=== PATIENT | male | born 1950 | race African-American/Black ===

== ENCOUNTER 2017-12-03 06:42 | Observation (INO) | payer OTHER ==
[2017-12-03 07:14] LABS: Absolute Lymphocytes (CBC) 3.4 K/uL (0.7-4.9); Absolute Monocytes 0.6 K/uL (0.1-1.3); Absolute Neutrophil 4.8 K/uL (1.8-8.0); Basophils % 0.3 % (0-1.3); Hematocrit 43.5 % (39.6-49.0); Lymphocytes % 36.8 % (15.3-44.8); MCH 31.4 pg (27.0-35.0); MCV 94.8 fL (80-100); MPV 9.1 fL (7.6-11.3); RBC Red Blood Cell Count 4.59 M/uL (4.33-5.43)
[2017-12-03 07:18] LABS: Protime INR 1.12
[2017-12-03 07:20] LABS: Potassium 5.3 mEq/L (3.6-5.0)
[2017-12-03 07:26] LABS: Albumin 4.3 g/dL (3.2-5.5); Bilirubin Direct 0.3 mg/dL (0-0.2); Bilirubin Total 1.1 mg/dL (0.3-1.2); Magnesium 2.2 mg/dL (1.8-2.5); Protein, Total 8.7 g/dL (6.0-8.3)
--- NOTE | 2017-12-03 08:14 | RAD REPORT ---
EXAM DESCRIPTION: CT - Head Brain Wo Cont - 12/03/2017 7:33 am CLINICAL HISTORY: Unresponsive COMPARISON: None. TECHNIQUE: Axial 5 mm thick images of the head were obtained without IV contrast. All CT scans are performed using dose optimization technique as appropriate and may include automated exposure control or mA/KV adjustment according to patient size. FINDINGS: No intracranial hemorrhage, mass, edema or shift of mid-line structures. No acute cortical based infarction. No cortical edema or sulcal effacement. There is a large area of encephalomalacia involving most of the right frontal lobe extending into a small portion of the temporal lobe. The ins ular cortex and external capsule show old infarction change. Lateral ventricle has enlarged in propor tion to the right side volume loss. No abnormal extra-axial fluid collections. Ventricles are in prop ortion to overall volume loss. Patient does have a mild underlying atrophy and scattered chronic isch emic change. Physiologic and vascular calcifications are present. Mastoid air cells are clear. Patchy ethmoid air cell mucosal thickening without sinus air-fluid level s. No acute bony findings. IMPRESSION: No hemorrhage, mass or acute intracranial finding. 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
[2017-12-03] MEDS ORDERED: ALBUTEROL 2.5 MG/3 ML NEB SOL ONE (09:04)
[2017-12-03] MEDS ORDERED: INSULIN -REGULAR HUMAN 50 UNIT/0.5 ML ML ONE (09:04)
[2017-12-03 09:05] LABS: Barbiturates NEGATIVE; Benzodiazepines NEGATIVE; Cocaine NEGATIVE; METHAMPHETAM NEGATIVE; Opiates NEGATIVE; Phencyclidine NEGATIVE; THC Cannibis NEGATIVE
[2017-12-03] MEDS ORDERED: NA CHLORIDE 0.9% 1,000 ML ONE (09:05)
[2017-12-03] MEDS ORDERED: D50W 25 GM/50 ML SYRINGE IV ONE (09:05)
[2017-12-03] MEDS ORDERED: CEFTRIAXONE/SWI 1gm 1 GM/10 ML SYR ONE (09:05)
--- NOTE | 2017-12-03 09:08 | RAD REPORT ---
EXAM DESCRIPTION: RAD - Chest Single View - 12/03/2017 7:26 am CLINICAL HISTORY: Altered mental status, shortness of breath COMPARISON: None. TECHNIQUE: AP portable chest image was obtained 0716 hours . FINDINGS: Lung volumes are low. Patient had difficulty following breathing instructions for the exam ination. Trachea is midline. Retrocardiac left base assessment is limited. Elsewhere no clear infiltr ate, mass or significant failure finding. Heart, vasculature and lung markings are all accentuated by the shallow inspiration and portable technique. No measurable pleural effusion and no pneumothorax. No gross bony abnormality seen. No acute aortic f indings suspected. IMPRESSION: Limited examination confirming no acute cardiopulmonary finding. Mild failure, volume overload or interstitial infiltrate can be masked by the exam limitations.
--- NOTE | 2017-12-03 09:14 | ER ---
Nurse's Notes [facility] Name: Sumanth Rodriguez Age: 67 yrs Sex: Male : 1950 Arrival Date: 12/03/2017 Time: 06:47 Bed 3 Private MD: Diagnosis: Altered mental status, unspecified;Urinary tract infection, site not specified;Hyperkalemia Presentation: 12/03 06:40 Presenting complaint: EMS states: that pt was sitting in wheelchair at [facility] with eyes open but not following directions when they arrived there. Last known well time was 1800 last night. EMS states that [facility] staff got pt up this am and thought he was acting this was due to him being tired. Upon arrival pt remains nonverbal and not moving any ext. Transition of care: patient was not received from another setting of care. Onset of symptoms was December 03, 2017. Initial Sepsis Screen: Does the patient meet any 2 criteria? No. Patient's initial sepsis screen is negative. Does the patient have a suspected source of infection? No. Patient's initial sepsis screen is negative. Care prior to arrival: 100%NRB IV initiated. 20 GA, in the right antecubital area, Glucose check: 109. 06:40 Method Of Arrival: EMS: [facility] 06:40 Acuity: TORY 2 fc Historical: - Allergies: 07:07 No Known Allergies; fc - Home Meds: 07:07 baclofen 20 mg Oral tab 1 tab 4 times per day [Active]; Colace 100 mg oral cap 1 cap fc once daily [Active]; cyclobenzaprine 5 mg Oral tab 1 tab 3 times per day [Active]; Eliquis 5 mg oral tab 1 tab 2 times per day [Active]; Klor-Con M20 20 mEq Oral TbTQ 1 tab 2 times per day [Active]; Lantus 100 unit/mL Sub-Q soln 30 unit twice a day [Active]; Lasix 40 mg Oral tab 1 tab 2 times per day [Active]; Lipitor 40 mg Oral tab 1 tab once daily [Active]; lisinopril 10 mg Oral tab 1 tab once daily [Active]; metformin 500 mg Oral tab 1 tab 2 times per day [Active]; metoprolol tartrate 25 mg Oral tab 1 tab 2 times per day [Active]; Miralax 17 gram Oral pwpk 1 packet once daily [Active]; multivitamin oral tab daily [Active]; Neurontin 100 mg Oral cap 1 caps 3 times per day [Active]; - PMHx: 07:07 hemiplegia left side; CVA; constipation; Diabetes - NIDDM; CHF; muscle spasms; fc Hyperlipidemia; Hypertension; Atrial Fib; GERD; Dysphagia; - Immunization history:: Adult Immunizations unknown. - Social history:: Smoking status: unknown. Screenin:00 Abuse screen: Denies threats or abuse. Denies injuries from another. Tuberculosis sg screening: No symptoms or risk factors identified. Never had TB. Fall Risk None identified. 07:26 Nutritional screening: No deficits noted. sg Assessment: 06:48 General: Appears cachectic, Behavior is unresponsive. pt unresponsive to painful ak1 stimuli. pt with previous deficits to left side. pt able to fist left hand, pt unable to lift left arm, unable to move left leg from previous stroke. pt able to lift right arm and hold arm in place but does not follow commands. pt eyes open, pt moves head. pt awake pt not verbal. . Pain: Unable to use pain scale. Patient is unresponsive. Neuro: Level of Consciousness is awake, unresponsive, Oriented to none [employer] are weak on right strong on left hand. . Weakness in left arm(s) leg(s) Speech pt non verbal at this time.. Cardiovascular: No deficits noted. Respiratory: No deficits noted. GI: No signs and/or symptoms were reported involving the gastrointestinal system. : No signs and/or symptoms were reported regarding the genitourinary system. EENT: No signs and/or symptoms were reported regarding the EENT system. Derm: No signs and/or symptoms reported regarding the dermatologic system. Musculoskeletal: No signs and/or symptoms reported regarding the musculoskeletal system. 07:19 Reassessment: xray at bedside at this time. sg 07:22 Reassessment: Patient appears in no apparent distress at this time. assist Keshawn jacobs sg tech for xray of chest, pt tolerated procedure well. General: Appears in no apparent distress. well developed, well nourished, Behavior is unresponsive. pt sitting upright in bed with eyes open, unable to follow commands at this time. Neuro: Level of Consciousness is awake, unresponsive, Oriented to none Speech nonverbal at this time. Respiratory: Airway is patent Respiratory effort is even, unlabored, Respiratory pattern is regular, symmetrical. Derm: Skin is intact, Skin is dry, Skin is normal, Skin temperature is cool. 07:40 Reassessment: Patient appears in no apparent distress at this time. Patient and/or sg family updated on plan of care and expected duration. Pain level reassessed. pt family member at bedside at this time, Shoshana CARTER at bedside speaking with pt family member, no new orders received, awaiting CT scan results. 09:00 Reassessment: Patient appears in no apparent distress at this time. Patient and/or sg family updated on plan of care and expected duration. Pain level reassessed. Patient is alert, oriented x 3, equal unlabored respirations, skin warm/dry/pink. pt answering questions at this time, pt aa\T\ox2, Shoshana CARTER notified, awaiting evaluation by hospitalist at this time. 09:50 Reassessment: at bedside evaluating pt at this time. Reassessment: awaiting sg admission orders, awaiting a bed assignment will continue to monitor. Vital Signs: 06:40 BP 100 / 74; Pulse 73; Resp 16; Temp 98.2(A); Pulse Ox 96% on 3 lpm NC; Weight 136.08 fc kg (R); Height 6 ft. 1 in. (185.42 cm); Pain 0/10; 08:51 BP 119 / 91; Pulse 78; Resp 19; Pulse Ox 94% on 2 lpm NC; sv 12:00 BP 103 / 74; Pulse 73; Resp 18; Pulse Ox 96% on 2 lpm NC; sg 06:40 Body Mass Index 39.58 (136.08 kg, 185.42 cm) ED Course: 06:47 Patient arrived in ED. 06:47 Initial lab(s) drawn, by me. Maintain EMS IV. Dressing intact. Good blood return noted. ak1 Site clean \T\ dry. Gauge \T\ site: 20g right AC. 06:50 [facility]. cp 06:50 Marshall Avery MD is Attending Physician. cp 06:52 Triage completed. 06:53 Arm band placed on Patient placed in an exam room, on a stretcher. fc 07:00 Patient has correct armband on for positive identification. Bed in low position. Call sg light in reach. Side rails up X2. potline monitor on. Pulse ox on. NIBP on. Warm blanket given. Verbal reassurance given. Head of bed elevated. 07:17 Jere Lopez, RN is Primary Nurse. sg 07:17 Lab(s) recollected, by me, sent to lab. sg 07:24 X-ray completed. Portable x-ray completed in exam room. Patient tolerated procedure jb2 well. 07:25 XRAY Chest (1 view) In Process Unspecified. EDMS 07:[address] via stretcher. sg 07:32 CT completed. Patient tolerated procedure well. Patient moved back from CT. sj 07:33 CT Head Brain wo Cont In Process Unspecified. EDMS 07:45 First set of blood cultures drawn by me. Inserted saline lock: 24 gauge in right hand, sg using aseptic technique. Blood collected. 07:57 EKG done, by hydroelectric production technician. reviewed by Brian CARTER. tc 07:59 Karen Dunn MD is Attending Physician. cp 08:00 Second set of blood cultures drawn by me. sg 08:40 Rausch cath inserted, using sterile technique, 16 Fr., by me, balloon inflated, urine sg specimen collected. returned cloudy urine. Patient tolerated well. 09:13 Nadine Juarez MD is Hospitalizing Provider. cp 12:10 No provider procedures requiring assistance completed. Patient admitted, IV remains in sg place. intact, No redness/swelling at site. Administered Medications: 09:15 Drug: D50W 50 ml Route: IVP; Site: right hand; sg 09:15 Drug: Albuterol 2.5 mg Route: Inhalation; sg 09:20 Drug: Rocephin - (cefTRIAXone) 1 grams Route: IVPB; Infused Over: 30 mins; Site: right sg hand; 09:20 Drug: NS 0.9% 1000 ml Route: IV; Rate: 100 ml/hr; Site: right hand; sg 09:20 Drug: Insulin Regular Human 3 units {Co-Signature: ss (Yolanda Forrest RN).} Route: sg Sub-Q; Site: right upper arm; 09:20 Drug: Albuterol 2.5 mg Route: Inhalation; sg 09:20 Drug: Albuterol 2.5 mg Route: Inhalation; sg 09:20 Drug: NS 0.9% 250 ml Route: IV; Rate: bolus; Site: right hand; Point of Care Testing: Blood Glucose: 06:48 Blood Glucose: 100 mg/dL; 08:02 Blood Glucose: 101 mg/dL; bm6 Ranges: Output: 08:58 Urine: 800ml (Rausch); Total: 800ml. sg Outcome: 09:13 Decision to Hospitalize by Provider. cp 12:11 Admitted to Med/surg accompanied by tech, family with patient, via stretcher, room 412, sg with chart, Report called to WARREN Fraga 12:11 Condition: stable 12:11 Instructed on discharge instructions, the need for admit, safety practices, Demonstrated understanding of instructions. 12:14 Patient left the ED. sg Signatures: Dispatcher [employer] EDMadison Thornton, RN RN Jere Lopez RN RN Keshawn Chaudhry Susan sj Chretien, Felicia, RN RN Radha De Leon, machine stamper EKG Ttc Samia Rodriguez RN RN ak1 Brian Anaya PA PA Christofer Engle bm6 Yolanda Forrest RN ss
--- NOTE | 2017-12-03 09:14 | EDPHYS ---
Physician Documentation [facility] Name: Sumanth Rodriguez Age: 67 yrs Sex: Male : 1950 Arrival Date: 12/03/2017 Time: 06:47 Bed 3 Private MD: ED Physician Karen Dunn HPI: 12/03 07:00 This 67 yrs old Black Male presents to ER via EMS with complaints of Unresponsive. cp 07:00 The patient's problem is reported as altered mental status, decreased responsiveness. cp Onset: The symptoms/episode began/occurred at an unknown time. last reported normal was 1800 yesterday. 07:00 Patient's baseline: Neuro: alert and fully oriented, Motor: left-sided weakness, cp Ambulation: unable to walk, uses wheelchair, The patient has a previous history of CVA. 07:00 Unable to obtain HPI due to altered mental status. cp Historical: - Allergies: 07:07 No Known Allergies; fc - Home Meds: 07:07 baclofen 20 mg Oral tab 1 tab 4 times per day [Active]; Colace 100 mg oral cap 1 cap fc once daily [Active]; cyclobenzaprine 5 mg Oral tab 1 tab 3 times per day [Active]; Eliquis 5 mg oral tab 1 tab 2 times per day [Active]; Klor-Con M20 20 mEq Oral TbTQ 1 tab 2 times per day [Active]; Lantus 100 unit/mL Sub-Q soln 30 unit twice a day [Active]; Lasix 40 mg Oral tab 1 tab 2 times per day [Active]; Lipitor 40 mg Oral tab 1 tab once daily [Active]; lisinopril 10 mg Oral tab 1 tab once daily [Active]; metformin 500 mg Oral tab 1 tab 2 times per day [Active]; metoprolol tartrate 25 mg Oral tab 1 tab 2 times per day [Active]; Miralax 17 gram Oral pwpk 1 packet once daily [Active]; multivitamin oral tab daily [Active]; Neurontin 100 mg Oral cap 1 caps 3 times per day [Active]; - PMHx: 07:07 hemiplegia left side; CVA; constipation; Diabetes - NIDDM; CHF; muscle spasms; fc Hyperlipidemia; Hypertension; Atrial Fib; GERD; Dysphagia; - Immunization history:: Adult Immunizations unknown. - Social history:: Smoking status: unknown. ROS: 07:05 Constitutional: Negative for fever. cp 07:05 Unable to obtain ROS due to altered mental status. cp Exam: 07:12 Head/Face: Normocephalic, atraumatic. cp 07:12 Constitutional: The patient appears non-diaphoretic, non-toxic, well developed, well nourished, obese. 07:12 Eyes: Periorbital structures: appear normal, Pupils: constricted, bilaterally, Conjunctiva: normal, no exudate, no injection, Lids and lashes: appear normal, bilaterally. 07:12 ENT: External ear(s): are unremarkable, Ear canal(s): are normal, clear, TM's: bulging, is not appreciated, bilaterally, dullness, bilaterally, erythema, is not appreciated, bilaterally, Nose: is normal, Mouth: Lips: moist, Oral mucosa: moist, Posterior pharynx: Airway: no evidence of obstruction, patent. 07:12 Neck: ROM/movement: is normal, is supple, no range of motions limitations, no meningismus, no nuchal rigidity. 07:12 Chest/axilla: Inspection: normal, Palpation: is normal, no crepitus, no tenderness. 07:12 Cardiovascular: Rate: normal, Rhythm: regular, Edema: mild bilateral lower legs, JVD: is not appreciated. 07:12 Respiratory: the patient does not display signs of respiratory distress, Respirations: normal, no use of accessory muscles, no retractions, no splinting, no tachypnea, labored breathing, is not present, Breath sounds: decreased breath sounds, that are mild, are located in both bases, wheezing: is not appreciated. 07:12 Abdomen/GI: Inspection: obese Bowel sounds: active, all quadrants, Palpation: soft, in all quadrants, rebound tenderness, is not appreciated, involuntary guarding, is not appreciated. 07:12 Skin: cellulitis, is not appreciated, no rash present. 07:12 Neuro: Orientation: Not oriented to person, place, situation, Cerebellar function: unable to test, patient altered, Motor: unable to test, patient altered. 07:54 ECG was reviewed by the Attending Physician. cp 08:27 Radiologist reports: no acute findings cp Vital Signs: 06:40 BP 100 / 74; Pulse 73; Resp 16; Temp 98.2(A); Pulse Ox 96% on 3 lpm NC; Weight 136.08 fc kg (R); Height 6 ft. 1 in. (185.42 cm); Pain 0/10; 08:51 BP 119 / 91; Pulse 78; Resp 19; Pulse Ox 94% on 2 lpm NC; sv 12:00 BP 103 / 74; Pulse 73; Resp 18; Pulse Ox 96% on 2 lpm NC; sg 06:40 Body Mass Index 39.58 (136.08 kg, 185.42 cm) fc MDM: 06:54 Patient medically screened. cp 09:07 Physician consultation: Nadine Juarez MD was called at 09:07, was contacted at 09:08, cp regarding admission, to the medical/surgical unit. patient's condition. 09:15 Data reviewed: vital signs, nurses notes, lab test result(s), EKG, radiologic studies, cp CT scan, plain films. 09:15 Test interpretation: by ED physician or midlevel provider: ECG, plain radiologic cp studies. 12/03 06:54 Order name: Basic Metabolic Panel; Complete Time: 07:47 cp 12/03 07:47 Interpretation: Normal except: K 5.3; BUN 25; CRE 1.56; GFR 54. cp 12/03 06:54 Order name: BNP; Complete Time: 07:47 cp 12/03 06:54 Order name: CBC with Diff; Complete Time: 07:47 cp 12/03 07:56 Interpretation: Reviewed. cp 12/03 06:54 Order name: Ckmb; Complete Time: 07:47 cp 12/03 06:54 Order name: CPK; Complete Time: 07:47 cp 12/03 06:54 Order name: LFT's; Complete Time: 07:47 cp 12/03 07:48 Interpretation: Normal except: BILID 0.3; TP 8.7; GLOB 4.4; A/G 1.0. cp 12/03 06:54 Order name: Magnesium; Complete Time: 07:47 cp 12/03 06:54 Order name: PT-INR; Complete Time: 07:47 cp 12/03 08:02 Interpretation: PT 13.2; Reviewed. cp 12/03 06:54 Order name: Ptt, Activated; Complete Time: 07:47 cp 12/03 06:54 Order name: Troponin (emerg Dept Use Only); Complete Time: 07:47 cp 12/03 07:47 Interpretation: TROPED < 0.03; Reviewed. cp 12/03 06:54 Order name: Blood Culture Adult (2) cp 12/03 06:54 Order name: AMMONIA; Complete Time: 07:55 cp 12/03 12:30 Interpretation: Within normal limits: EDDA 15. cp 12/03 06:54 Order name: Lactate; Complete Time: 07:47 cp 12/03 06:54 Order name: Procalcitonin; Complete Time: 07:47 cp 12/03 12:30 Interpretation: Procalcitonin < 0.05; Reviewed. cp 12/03 06:54 Order name: CT Head Brain wo Cont; Complete Time: 08:24 cp 12/03 08:24 Interpretation: Report reviewed. cp 12/03 06:54 Order name: XRAY Chest (1 view); Complete Time: 09:12 cp 12/03 06:54 Order name: EKG; Complete Time: 06:54 cp 12/03 06:54 Order name: Cardiac monitoring; Complete Time: 06:56 cp 12/03 06:54 Order name: EKG - Nurse/Tech; Complete Time: 08:49 cp 12/03 06:54 Order name: IV Saline Lock; Complete Time: 06:56 cp 12/03 06:54 Order name: Labs collected and sent; Complete Time: 06:56 cp 12/03 06:54 Order name: O2 Per Protocol; Complete Time: 06:56 cp 12/03 06:54 Order name: UDS; Complete Time: 09:12 cp 12/03 09:12 Interpretation: Reviewed. cp 12/03 08:50 Order name: Urine Dipstick--Ancillary (enter results); Complete Time: 12:29 ag 12/03 12:29 Interpretation: Normal except: U NIT POSITIVE; UESTR 2+. cp 12/03 06:54 Order name: O2 Sat Monitoring; Complete Time: 06:56 cp 12/03 06:54 Order name: Urine Dipstick-Ancillary (obtain specimen); Complete Time: 08:49 cp 12/03 06:54 Order name: Rausch; Complete Time: 08:49 cp EC:54 Rate is 66 beats/min. Rhythm is regular. ND interval is normal. QRS interval is normal. cp QT interval is normal. T waves are Inverted in leads aVL, V2. Interpreted by me. Reviewed by me. Administered Medications: 09:15 Drug: D50W 50 ml Route: IVP; Site: right hand; sg 09:15 Drug: Albuterol 2.5 mg Route: Inhalation; sg 09:20 Drug: Rocephin - (cefTRIAXone) 1 grams Route: IVPB; Infused Over: 30 mins; Site: right sg hand; 09:20 Drug: NS 0.9% 1000 ml Route: IV; Rate: 100 ml/hr; Site: right hand; sg 09:20 Drug: Insulin Regular Human 3 units {Co-Signature: ss (Yolanda Forrest RN).} Route: sg Sub-Q; Site: right upper arm; 09:20 Drug: Albuterol 2.5 mg Route: Inhalation; sg 09:20 Drug: Albuterol 2.5 mg Route: Inhalation; sg 09:20 Drug: NS 0.9% 250 ml Route: IV; Rate: bolus; Site: right hand; Point of Care Testing: Blood Glucose: 06:48 Blood Glucose: 100 mg/dL; 08:02 Blood Glucose: 101 mg/dL; bm6 Ranges: Critical Glucose Levels:Adult <50 mg/dl or >400 mg/dl <40 mg/dl or >180 mg/dl Disposition: 17:32 Chart complete. cp Disposition: 12/03/17 09:13 Hospitalization ordered by Nadine Juarez for Inpatient Admission. Preliminary diagnosis are Altered mental status, unspecified, Urinary tract infection, site not specified, Hyperkalemia. - Bed requested for Telemetry/MedSurg (Inpatient). - Status is Inpatient Admission. sg - Condition is Fair. - Problem is new. - Symptoms are unchanged. UTI on Admission? Yes Addendum: 12/08/2017 19:55 Co-signature as Attending Physician, Karen Dunn MD. m a2 Signatures: Dispatcher [employer] Mary Jo Ayala RN RN Jere Lopez RN RN sg Chretien, Felicia, RN RN fc Gallardo, Ana ag Page, Corey, PA PA cp Karen Dunn MD MD ma2 Yolanda Forrest RN ss Corrections: (The following items were deleted from the chart) 12/03 09:14 09:13 Hospitalization Ordered by Nadine Juarez MD for Inpatient Admission. Preliminary cp diagnosis is Altered mental status, unspecified; Urinary tract infection, site not specified. Bed requested for Telemetry/MedSurg (Inpatient). Status is Inpatient Admission. Condition is Fair. Problem is new. Symptoms are unchanged. UTI on Admission? Yes. cp 11:53 09:14 12/03/2017 09:13 Hospitalization Ordered by Nadine Juarez MD for Inpatient dw Admission. Preliminary diagnosis is Altered mental status, unspecified; Urinary tract infection, site not specified; Hyperkalemia. Bed requested for Telemetry/MedSurg (Inpatient). Status is Inpatient Admission. Condition is Fair. Problem is new. Symptoms are unchanged. UTI on Admission? Yes. cp 12:03 11:53 12/03/2017 09:13 Hospitalization Ordered by Nadine Juarez MD for Inpatient ag Admission. Preliminary diagnosis is Altered mental status, unspecified; Urinary tract infection, site not specified; Hyperkalemia. Bed requested for Telemetry/MedSurg (Inpatient). Status is Inpatient Admission. Condition is Fair. Problem is new. Symptoms are unchanged. UTI on Admission? Yes. dw 12:14 12:03 12/03/2017 09:13 Hospitalization Ordered by Nadine Juarez MD for Inpatient sg Admission. Preliminary diagnosis is Altered mental status, unspecified; Urinary tract infection, site not specified; Hyperkalemia. Bed requested for Telemetry/MedSurg (Inpatient). Status is Inpatient Admission. Condition is Fair. Problem is new. Symptoms are unchanged. UTI on Admission? Yes. ag
[2017-12-03] MEDS ORDERED: ACETAMINOPHEN 500 MG TAB PO PRN (09:40)
[2017-12-03] MEDS ORDERED: IPRATROPIUM BROM 0.5MG/2.5ML NEB PRN (09:40)
[2017-12-03] MEDS ORDERED: ALBUTEROL 2.5 MG/3 ML NEB SOL NEB PRN (09:40)
[2017-12-03] MEDS ORDERED: ONDANSETRON 4 MG/2 ML VIAL IV PRN (09:40)
[2017-12-03] MEDS: NA CHLORIDE 0.9% 1,000 ML IV SCH ×2 (10:00→20:58)
[2017-12-03] MEDS ORDERED: GLUCAGON 1 MG/VIAL IM PRN (10:45)
[2017-12-03] MEDS: INSULIN -REGULAR HUMAN 50 UNIT/0.5 ML ML SQ SCH ×3 (11:30→21:00)
[2017-12-03 12:14] LABS: Urine Blood NEGATIVE (NEG); Urine Glucose NEGATIVE (NEG); Urine Protein NEGATIVE (NEG); Urine Specific Gravity 1.015 (1.005-1.030)
--- NOTE | 2017-12-03 14:37 | EKG ---
Test Date: 2017-12-03 Test Time: 07:51:17 Environmental Associate: DANIEL MEASUREMENT RESULTS: Intervals: Rate: 66 AK: 186 QRSD: 92 QT: 366 QTc: 383 [place]: P: 35 AK: 186 QRS: 49 T: 69 INTERPRETIVE STATEMENTS: Normal sinus rhythm Nonspecific T wave abnormality Abnormal ECG No previous ECG available for comparison Electronically Signed On 12-03-17 14:34:11 CDT by Preston Guillory
[2017-12-03] MEDS: D50W 25 GM/50 ML SYRINGE IV PRN ×2 (15:44→16:11)
[2017-12-03] MEDS ORDERED: ENOXAPARIN 30 MG/0.3 ML SQ SCH (17:00)
--- NOTE | 2017-12-03 22:07 | HP ---
Date of Admission: 12/03/2017 Code Status: Full. Chief Complaint: Altered mental status. History Of Present Illness: The patient is a 67-year-old male with past medical history of diabetes, stroke, CHF, hypertension, hyperlipidemia, atrial fibrillation, and dysphagia, who was in his usual state of health until the day of admission when the patient was found to be less responsive at the [facility]. The patient is a resident of [facility] and has been there since . The patient was in his usual state of health. Last night is when he was last noted to be doing w ell. This morning, the patient was unable to be aroused, kind of listless, and not responding. Ther efore, the patient was sent to the ER for further evaluation. The patient himself denies any fevers, chills, chest pain, or shortness of breath. The patient is much more awake and alert in the ER. Hi s symptoms are constant, moderate, and progressively worsening. No alleviating or aggravating factor s. Workup revealed a potassium of 5.3. INR was 1.56. His WBC is normal. UDS was negative. UA was positive. CT scan of the head was done, which did not show any acute changes, did show his old de la garza ges from his previous CVA. Chest x-ray did not show any acute changes either. The patient was then referred for admission. Past Medical History: Atrial fibrillation; dysphagia; hypertension; hyperlipidemia; history of CVA w ith left-sided weakness; diabetes, insulin requiring; combined congestive heart failure; dysthymic di sorder. Past Surgical History: Cholecystectomy. Allergies: NO KNOWN DRUG ALLERGIES. Medications: Reviewed. Family History: Positive for hypertension. Social History: The patient is a resident of [facility], is wheelchair bound. Does n ot smoke or drink. No illicit drug use. Review of Systems: An 11-point system reviewed, negative except as per HPI. Physical Examination: Vital Signs: Blood pressure 100/74, pulse 73, respirations 16, temperature 98.2, and pulse ox 96% on 3 L via nasal cannula. General: Awake, alert, and oriented x2. Some acute distress. Ill-appearing elderly male, morbidly obese. HEENT: Normocephalic, atraumatic. PERRLA. EOMI. Moist mucous membranes. Oropharynx is clear. Co njunctivae are anicteric. Poor dentition. Neck: Supple. No JVD. Trachea midline. Respiratory: Diminished breath sounds at the bases. No wheezing or stridor. No use of accessory mu scles. Gastrointestinal: Abdomen is soft, nontender, and nondistended. Positive bowel sounds. No guarding or rigidity. Extremities: No clubbing, cyanosis. Trace pedal edema. No calf tenderness. Neuro: Cranial nerves 2 through 12 intact grossly. The patient has left-sided weakness. Speech is comprehensible. No facial asymmetry. Skin: No rashes. Normal skin turgor. Psych: Deferred. Laboratory Data: Sodium 138, potassium 5.3, chloride 103, CO2 29, BUN 25, creatinine 1.56, glucose 1 02, lactate 13.4, calcium 9, and magnesium 2.2. CK 240, troponin less than 0.03. Ammonia 15. Album in 4.3. Procalcitonin less than 0.05. INR 1.12. WBC 9.2, H and H 14.4 and 43.5, and platelets 247. UDS is negative. CT scan of the head shows no acute finding, does show changes from previous CVA i n the right frontal lobe, insular cortex, and lateral margins of the basal ganglia. Chest x-ray, per sonally reviewed, shows limited examination confirming no acute cardiopulmonary finding. Mild failur e, volume overload, or interstitial infiltrate can be masked by the exam limitations. Assessment: A 67-year-old male with; 1.Acute metabolic encephalopathy likely related to urinary tract infection. The patient's condition is improving. 2.Urinary tract infection, acute cystitis without hematuria. We will continue with IV antibiotics a nd obtain urine culture. We will also obtain blood cultures. Does not appear septic. Procal, lacta te are negative. 3.Hypokalemia. We will replace and monitor. 4.Acute versus acute on chronic kidney injury. No baseline to compare with. We will continue with gentle IV fluid hydration as the patient has history of congestive heart failure. 5.Chronic combined systolic and diastolic heart failure, compensated. We will resume home medicatio ns. 6.Essential hypertension. The patient is currently hypotensive. We will hold blood pressure medica tions and monitor blood pressure. 7.Hyperlipidemia, mixed. Continue home medication. 8.History of atrial fibrillation, paroxysmal. 9.Diabetes mellitus type 2 with diabetic neuropathy with long-term use of insulin. We will resume h ome insulin dose and start on sliding scale. 10.Dysthymic disorder. 11.Gastrointestinal and deep venous thrombosis prophylaxis with PPI and Lovenox. Plan: Admit the patient to Med-Surg, place as inpatient. We will reconcile home medications once av ailable. JESUS Voice ID: [id number]
[2017-12-04 05:32] LABS: Absolute Lymphocytes (CBC) 2.1 K/uL (0.7-4.9); Absolute Monocytes 0.6 K/uL (0.1-1.3); Absolute Neutrophil 4.8 K/uL (1.8-8.0); Basophils % 0.8 % (0-1.3); Hematocrit 41.3 % (39.6-49.0); Lymphocytes % 26.5 % (15.3-44.8); MCH 31.4 pg (27.0-35.0); MCV 94.4 fL (80-100); MPV 9.1 fL (7.6-11.3); Monocytes % 8.3 % (3.3-12.3); RBC Red Blood Cell Count 4.38 M/uL (4.33-5.43)
[2017-12-04 05:33] LABS: Albumin 3.7 g/dL (3.2-5.5); Bilirubin Total 1.6 mg/dL (0.3-1.2); Potassium 5.1 mEq/L (3.6-5.0); Protein, Total 7.5 g/dL (6.0-8.3)
[2017-12-04 06:50] VITALS: BMI 34.9
[2017-12-04] MEDS: INSULIN -REGULAR HUMAN 50 UNIT/0.5 ML ML SQ SCH ×4 (07:30→20:23)
[2017-12-04] MEDS: INSULIN DETEMIR 100 UNIT/1 ML INSULIN SQ SCH ×2 (09:00→20:31)
[2017-12-04] MEDS: POLYETHYL GLY 3350 17 GM/DOSE PO SCH (09:40)
[2017-12-04] MEDS: GABAPENTIN 300 MG CAP PO SCH ×3 (09:40→20:21)
[2017-12-04] MEDS: METOPROLOL TAR 25 MG TAB PO SCH ×2 (09:40→20:22)
[2017-12-04] MEDS: DOCUSATE NA 100 MG CAP PO SCH (09:41)
[2017-12-04] MEDS: APIXABAN 5 MG TABLET PO SCH ×2 (09:41→20:21)
[2017-12-04] MEDS: CEFTRIAXONE/SWI 1gm 1 GM/10 ML SYR IV SCH (09:41)
[2017-12-04] MEDS: NA CHLORIDE 0.9% 1,000 ML IV SCH (12:08)
[2017-12-04] MEDS: FUROSEMIDE 40 MG TABLET PO SCH (20:21)
[2017-12-04] MEDS ORDERED: ATORVASTATIN 40 MG TAB PO SCH (21:00)
--- NOTE | 2017-12-04 21:30 | PN ---
Date of Progress Note: 12/04/2017 Subjective: The patient is seen and examined. Chart reviewed and case discussed with RN and speech therapist. The patient doing significantly better, more awake, alert and oriented. Not in any acute distress. Review of Systems: Negative except as per HPI. Medications: Reviewed. Physical Examination: Vital Signs: Temperature 98.2, heart rate 97, blood pressure 119/58, respirations 18, O2 96% on room air. General: Awake, alert, oriented x3, not in any acute distress. Elderly male, obese, somewhat ill-ap pearing. CV: S1, S2. No murmurs. Peripheral pulses present. Respiratory: Moving air well bilaterally. No wheezing. Gastrointestinal: Abdomen is soft, nontender, nondistended. Positive bowel sounds. Extremities: No clubbing, cyanosis, edema. Neuro: The patient has left-sided weakness. Skin: No rashes. Laboratory Data: Sodium 138, potassium 5.1, chloride 108, CO2 25, BUN 15, creatinine 1.09, glucose 1 12, calcium 8.7, total bilirubin 1.6, AST 22, ALT 25, alkaline phosphatase 84, albumin 3.7. WBC 7.8, H and H 13.7 and 41.3, platelets 216. Urine culture pending. Blood cultures no growth to date. Assessment And Plan: A 67-year-old male with: 1.Acute metabolic encephalopathy, likely secondary to urinary tract infection, improved. 2.Urinary tract infection, acute cystitis without hematuria. We will continue IV antibiotics. Foll ow up a urine culture. 3.Hyperkalemia. Kayexalate will monitor. 4.Acute versus acute on chronic kidney injury, likely just acute. Creatinine has normalized. We wi ll continue to monitor. Discontinue IV fluids. 5.Chronic combined systolic diastolic heart failure, compensated, stable. 6.Essential hypertension. Blood pressure still on the hypertensive side. We will hold blood pressu re medications for now. 7.Hyperlipidemia. Continue home medication. 8.History of atrial fibrillation, paroxysmal. 9.Diabetes mellitus type 2 with diabetic neuropathy with long-term use of insulin. We will continue sliding scale insulin. 10.Dysthymic disorder. 11.Gastrointestinal and deep venous thrombosis prophylaxis, PPI and Lovenox. 12.Dysphagia. Speech therapy evaluation shows no abnormalities. We will continue on a diabetic tChina TATE/ARIANNA Voice ID: [id number] Report ID: [id number]
[2017-12-05 06:04] LABS: Absolute Lymphocytes (CBC) 1.3 K/uL (0.7-4.9); Absolute Monocytes 0.5 K/uL (0.1-1.3); Absolute Neutrophil 3.7 K/uL (1.8-8.0); Basophils % 0.5 % (0-1.3); Eosinophils % 3.9 % (0-4.4); Hematocrit 52.5 % (39.6-49.0); MCH 30.8 pg (27.0-35.0); MCV 94.8 fL (80-100); MPV 9.1 fL (7.6-11.3); RBC Red Blood Cell Count 5.54 M/uL (4.33-5.43)
[2017-12-05 06:07] LABS: Albumin 3.5 g/dL (3.2-5.5); Bilirubin Total 1.3 mg/dL (0.3-1.2); Potassium 5.3 mEq/L (3.6-5.0); Protein, Total 7.3 g/dL (6.0-8.3)
[2017-12-05] MEDS: INSULIN -REGULAR HUMAN 50 UNIT/0.5 ML ML SQ SCH ×2 (07:30→11:30)
[2017-12-05] MEDS ORDERED: SOD POLYSTYREN SUL 15 GM/60 ML UCUP PO ONE (09:00)
[2017-12-05] MEDS: INSULIN DETEMIR 100 UNIT/1 ML INSULIN SQ SCH (09:12)
[2017-12-05] MEDS: POLYETHYL GLY 3350 17 GM/DOSE PO SCH (09:15)
[2017-12-05] MEDS: METOPROLOL TAR 25 MG TAB PO SCH (09:16)
[2017-12-05] MEDS: DOCUSATE NA 100 MG CAP PO SCH (09:17)
[2017-12-05] MEDS: GABAPENTIN 300 MG CAP PO SCH ×2 (09:17→14:29)
[2017-12-05] MEDS: FUROSEMIDE 40 MG TABLET PO SCH (09:17)
[2017-12-05] MEDS: CEFTRIAXONE/SWI 1gm 1 GM/10 ML SYR IV SCH (09:22)
[2017-12-05] MEDS: APIXABAN 5 MG TABLET PO SCH (10:06)
[2017-12-05 10:18] VITALS: O2SAT 92
[2017-12-05 14:01] VITALS: BP 134/70; TEMP 98.7
--- NOTE | 2017-12-05 15:13 | DS ---
Date of Discharge: 12/05/2017 Admitting Diagnoses: 1.Acute metabolic encephalopathy. 2.Urinary tract infection, acute cystitis without hematuria. 3.Hypokalemia. 4.Acute versus acute on chronic kidney injury. 5.Chronic combined systolic and diastolic heart failure, compensated. 6.Essential hypertension. 7.Hyperlipidemia. 8.History of atrial fibrillation, paroxysmal. 9.Diabetes mellitus type 2 with diabetic neuropathy with long-term use of insulin. 10.Dysthymic disorder. Discharge Diagnoses: 1.Acute metabolic encephalopathy, resolved, may be secondary to urinary tract infection and sedated medications, which were held. 2.Urinary tract infection, acute cystitis without hematuria. Urine culture showing no growth to fanta e. 3.Hypokalemia, corrected. 4.Acute versus acute on chronic kidney injury. Creatinine normalized. 5.Chronic combined systolic and diastolic heart failure. 6.Essential hypertension, stable. 7.Hyperlipidemia, mixed. Continue statin. 8.History of atrial fibrillation, paroxysmal. 9.Diabetes mellitus type 2 with diabetic neuropathy with long-term use of insulin. 10.Thyroid disorder. 11.Dysphagia. No abnormalities being seen by Speech Therapy evaluation. Able to tolerate diabetic diet. 12.Obesity, BMI 35. Hospital Course: The patient is a 67-year-old [facility] resident, who was sent to the hospital wi th acute decrease in mental status. The patient was found to have UTI. He was started on IV antibio tics. He was hydrated with IV fluids. His medications including baclofen and cyclobenzaprine were h eld, which were thought to be causing excessive sedation. The patient states that he normally does n ot feel pain and does not wish to resume his muscle relaxant. The patient did well over the course o f the hospital stay, did not require any muscle relaxants or pain medications with baclofen. His CT scan of the head was negative for any acute abnormalities. He was found to have UTI and his cultures showed no growth. His blood cultures remained negative. The patient was back to his baseline. He did have some mild electrolyte abnormalities, which were corrected. The patient was then cleared for discharge and was discharged to the nursing. Medications: As per medication reconciliation list. Followup: Follow up with primary care physician in 2-3 days. Return here for worsening condition. Diet: Diabetic diet. Activity: Fall precautions. Physical Examination: General: Awake, alert, oriented x3, no acute distress, obese. CV: S1, S2. No murmurs. Respiratory: Moving air well bilaterally. Gastrointestinal: Abdomen is soft, nontender, and nondistended. Positive bowel sounds. Extremities: No clubbing, cyanosis, edema. Neurologic: The patient has left-sided weakness. /MODBaldev Voice ID: [id number] Report ID: [id number]
== END 2017-12-05 16:44 ==
LOC: ER 06:42 → INTOOBSV 09:13 → ERHOLD 09:13 → 4TH 12:04
PROVIDERS: ADMIT Family Medicine; ATTEND Family Medicine
DX: G93.41 Metabolic encephalopathy (principal); N30.00 Acute cystitis without hematuria; E87.6 Hypokalemia; I50.42 Chronic combined systolic (congestive) and diastolic (congestive) heart failure; I11.0 Hypertensive heart disease with heart failure; E78.2 Mixed hyperlipidemia; I48.0 Paroxysmal atrial fibrillation; E11.40 Type 2 diabetes mellitus with diabetic neuropathy, unspecified; F34.1 Dysthymic disorder; Z79.4 Long term (current) use of insulin; Z86.73 Personal history of transient ischemic attack (TIA), and cerebral infarction without residual deficits; R13.10 Dysphagia, unspecified; E66.9 Obesity, unspecified; Z68.35 Body mass index [BMI] 35.0-35.9, adult
CPT/HCPCS: 36415 ×2; 51702; 70450; 71045; 80048; 80053 ×2; 80076; 80307 ×9; 81003; 82140; 82550; 82553; 82962 ×14; 83605; 83735; 83880; 84132; 84145; 84484; 85025 ×3; 85610; 85730; 87040 ×2; 87086; 92526; 93005; 94760 ×5; 96372; 96374; 96375; 97110 ×2; 97163; 97530 ×2; 99285; G0378 ×2; J0696 ×3; J1650; J7030 ×3; 87088

== ENCOUNTER 2017-12-12 21:23 | Emergency (ER) | payer OTHER ==
[2017-12-12 21:58] LABS: Absolute Lymphocytes (CBC) 2.3 K/uL (0.7-4.9); Absolute Monocytes 0.5 K/uL (0.1-1.3); Absolute Neutrophil 5.9 K/uL (1.8-8.0); Basophils % 0.5 % (0-1.3); Eosinophils % 2.9 % (0-4.4); Hematocrit 42.2 % (39.6-49.0); Lymphocytes % 25.3 % (15.3-44.8); MCH 31.4 pg (27.0-35.0); MCV 94.7 fL (80-100); MPV 8.3 fL (7.6-11.3); Monocytes % 5.6 % (3.3-12.3); RBC Red Blood Cell Count 4.45 M/uL (4.33-5.43)
--- NOTE | 2017-12-12 22:04 | RAD REPORT ---
EXAM DESCRIPTION: CT - Head Brain Wo Cont - 12/12/2017 9:56 pm CLINICAL HISTORY: Altered consciousness, history of CVA COMPARISON: 12/03/2017 TECHNIQUE: All CT scans are performed using dose optimization technique as appropriate and may inclu de automated exposure control or mA/KV adjustment according to patient size. FINDINGS: No intracranial hemorrhage, hydrocephalus or extra-axial fluid collection.Large area of gl iosis is again noted involving the right cerebral hemisphere, compatible with old infarct.No areas of brain edema or evidence of midline shift. Mucoperiosteal thickening affects the anterior ethmoid air cells. The remainder the paranasal sinuses and mastoids appear clear. The calvarium is intact. IMPRESSION: No acute intracranial abnormality. Extensive gliosis right cerebral hemisphere, unchanged. If there is continued clinical concern for CVA, MR imaging of the brain would be recommended.
[2017-12-12 22:11] LABS: Potassium 3.8 mEq/L (3.6-5.0)
--- NOTE | 2017-12-12 22:11 | RAD REPORT ---
EXAM DESCRIPTION: RAD - Chest Single View - 12/12/2017 10:04 pm CLINICAL HISTORY: Chest pain. COMPARISON: 12/03/2017 FINDINGS: Portable technique limits examination quality. The lungs are grossly clear. The heart is mildly enlarged in size. No displaced fractures. IMPRESSION: No acute intrathoracic process suspected.
[2017-12-12 22:12] LABS: Magnesium 1.9 mg/dL (1.8-2.5)
[2017-12-12 22:49] LABS: Protime INR 1.16
--- NOTE | 2017-12-12 23:48 | ER ---
Nurse's Notes [facility] Name: Sumanth Rodriguez Age: 67 yrs Sex: Male : 1950 Arrival Date: 12/12/2017 Time: 21:25 Bed 5 Private MD: Diagnosis: Altered mental status, unspecified Presentation: 12/12 21:30 Presenting complaint: EMS states: "[facility] called to report that ao patient has been Alter Mental and unable to get up of bed." shelter report left side weakness. Transition of care: patient was not received from another setting of care. Onset of symptoms is unknown. Initial Sepsis Screen: Does the patient meet any 2 criteria? No. Patient's initial sepsis screen is negative. Does the patient have a suspected source of infection? No. Patient's initial sepsis screen is negative. Care prior to arrival: None. 21:30 Method Of Arrival: EMS: [facility] ao 21:30 Acuity: TORY 3 ao Triage Assessment: 22:13 General: Appears in no apparent distress. comfortable, Behavior is calm. Pain: Denies ao pain. EENT: No signs and/or symptoms were reported regarding the EENT system. Neuro: Level of Consciousness is awake, Oriented to person, place. Cardiovascular: Capillary refill < 3 seconds Patient's skin is warm and dry. Respiratory: Airway is patent Respiratory effort is even, unlabored, Respiratory pattern is regular, symmetrical. GI: Abdomen is obese. : No signs and/or symptoms were reported regarding the genitourinary system. Derm: No signs and/or symptoms reported regarding the dermatologic system. Musculoskeletal: Range of motion: intact in Left side weakness. Historical: - Allergies: 21:41 No Known Allergies; ao - Home Meds: 21:41 baclofen 20 mg Oral tab 1 tab 4 times per day [Active]; Colace 100 mg Oral cap 1 cap ao once daily [Active]; cyclobenzaprine 5 mg Oral tab 1 tab 3 times per day [Active]; Eliquis 5 mg Oral tab 1 tab 2 times per day [Active]; Klor-Con M20 20 mEq Oral TbTQ 1 tab 2 times per day [Active]; Lantus 100 unit/mL Sub-Q soln 30 unit twice a day [Active]; Lasix 40 mg Oral tab 1 tab 2 times per day [Active]; Lipitor 40 mg Oral tab 1 tab once daily [Active]; lisinopril 10 mg Oral tab 1 tab once daily [Active]; metformin 500 mg Oral tab 1 tab 2 times per day [Active]; metoprolol tartrate 25 mg Oral tab 1 tab 2 times per day [Active]; Miralax 17 gram Oral pwpk 1 packet once daily [Active]; multivitamin Oral tab daily [Active]; Neurontin 100 mg Oral cap 1 caps 3 times per day [Active]; - PMHx: 21:41 Atrial Fib; CHF; constipation; CVA; Diabetes - NIDDM; DYSPHAGIA; GERD; hemiplegia left ao side; Hyperlipidemia; Hypertension; muscle spasms; - PSHx: 21:41 None; ao - Immunization history:: Adult Immunizations unknown. - Social history:: Smoking status: unknown. - Family history:: not pertinent. - Hospitalizations: : No recent hospitalization is reported. Screenin:42 Abuse screen: Denies threats or abuse. Denies injuries from another. Nutritional ao screening: No deficits noted. Tuberculosis screening: No symptoms or risk factors identified. Fall Risk Fall in past 12 months (25 points). Assessment: 22:14 General: See triage assessment. ao 23:22 Reassessment: Patient appears in no apparent distress at this time. No changes from ao previously documented assessment. Patient and/or family updated on plan of care and expected duration. Pain level reassessed. Patient is alert, oriented x 3, equal unlabored respirations, skin warm/dry/pink. Waiting on urine. 12/13 00:25 Reassessment: Patient and/or family updated on plan of care and expected duration. Pain tl1 level reassessed. Patient is alert, oriented x 3, equal unlabored respirations, skin warm/dry/pink. Patient states feeling better. Patient states symptoms have improved. Neuro: Level of Consciousness is awake, alert, Oriented to person, place, time, situation, Speech is normal. 00:26 Reassessment: Gave report to Madeline at [facility]. tl1 Vital Signs: 12/12 21:33 BP 134 / 78; Pulse 87; Resp 20; Temp 98.6(O); Pulse Ox 94% on R/A; Weight 90.72 kg; ao Height 5 ft. 6 in. (167.64 cm) (R); Pain 0/10; 22:49 BP 102 / 55; Pulse 96; Resp 17; Pulse Ox 97% on R/A; Pain 0/10; tl1 23:06 BP 119 / 68; Pulse 89; Resp 18; Pulse Ox 95% on R/A; mt 12/13 00:25 BP 108 / 83; Pulse 79; Resp 16; Temp 98.5; Pulse Ox 97% on R/A; Pain 0/10; tl1 12/12 21:33 Body Mass Index 32.28 (90.72 kg, 167.64 cm) ao ED Course: 12/12 21:25 Patient arrived in ED. em1 21:26 Madan Sandoval MD is Attending Physician. rn 21:30 Benito Ho RN is Primary Nurse. ao 21:33 Triage completed. ao 21:33 Arm band placed on right wrist. Patient placed in an exam room, on a stretcher, on ao gambling monitor, on pulse oximetry. 21:42 Patient has correct armband on for positive identification. Pulse ox on. NIBP on. ao 21:44 No provider procedures requiring assistance completed. Inserted saline lock: 20 gauge tl1 in left antecubital area, using aseptic technique. Blood collected. 21:[address] via stretcher. nj 21:55 CT completed. Patient tolerated procedure well. nj 21:56 CT Head Brain wo Cont In Process Unspecified. EDMS 22:03 XRAY Chest (1 view) In Process Unspecified. EDMS 23:40 Straight cath inserted, using sterile technique, 16 Fr. Specimen obtained. Returned 500 ed1 mL, byron colored urine. Patient tolerated well. 12/13 00:55 IV discontinued, intact, bleeding controlled, No redness/swelling at site. Pressure ao dressing applied. Administered Medications: No medications were administered Outcome: 12/12 23:47 Discharge ordered by . rn 05 00:59 Patient left the ED. tl1 01:54 Discharged to longterm. Report called to WARREN Leonepie icer machine form completed. Valuables ao list done. 01:54 Condition: stable 01:54 Discharge instructions given to patient, Instructed on discharge instructions, follow up and referral plans. Demonstrated understanding of instructions, follow-up care. Signatures: Dispatcher [employer] EDMS Madan Sandoval MD MD rn Martinez, Eric em1 oRx Rene LVN LVN ed1 Sandy Lopez RN RN tl1 Benito Ho RN RN ao Jimy, Miesha Gomez va
--- NOTE | 2017-12-12 23:48 | EDPHYS ---
Physician Documentation [facility] Name: Sumanth Rodriguez Age: 67 yrs Sex: Male : 1950 Arrival Date: 12/12/2017 Time: 21:25 Bed 5 Private MD: ED Physician Madan Sandoval HPI: 12/12 21:56 This 67 yrs old Black Male presents to ER via EMS with complaints of AMS. rn 21:56 The patient presents with decreased mental status. Onset: The symptoms/episode rn began/occurred at an unknown time. Possible causes: unknown. Current symptoms: In the emergency department the patient's symptoms have improved. The patient has experienced a previous episode. Pt relatively new to [facility], per EMS, decreased responsiveness, has hx of strokes in past, left sided residual weakness, recently admitted here for possible UTI and dehydration, completed abx, sent back today because not wanting to eat dinner in [place], not talking as much, was not cooperative for EMS initially, but now speaking, denies pain, denies fall, tearful, but pleasant and follows commands.. Historical: - Allergies: 21:41 No Known Allergies; ao - Home Meds: 21:41 baclofen 20 mg Oral tab 1 tab 4 times per day [Active]; Colace 100 mg Oral cap 1 cap ao once daily [Active]; cyclobenzaprine 5 mg Oral tab 1 tab 3 times per day [Active]; Eliquis 5 mg Oral tab 1 tab 2 times per day [Active]; Klor-Con M20 20 mEq Oral TbTQ 1 tab 2 times per day [Active]; Lantus 100 unit/mL Sub-Q soln 30 unit twice a day [Active]; Lasix 40 mg Oral tab 1 tab 2 times per day [Active]; Lipitor 40 mg Oral tab 1 tab once daily [Active]; lisinopril 10 mg Oral tab 1 tab once daily [Active]; metformin 500 mg Oral tab 1 tab 2 times per day [Active]; metoprolol tartrate 25 mg Oral tab 1 tab 2 times per day [Active]; Miralax 17 gram Oral pwpk 1 packet once daily [Active]; multivitamin Oral tab daily [Active]; Neurontin 100 mg Oral cap 1 caps 3 times per day [Active]; - PMHx: 21:41 Atrial Fib; CHF; constipation; CVA; Diabetes - NIDDM; DYSPHAGIA; GERD; hemiplegia left ao side; Hyperlipidemia; Hypertension; muscle spasms; - PSHx: 21:41 None; ao - Immunization history:: Adult Immunizations unknown. - Social history:: Smoking status: unknown. - Family history:: not pertinent. - Hospitalizations: : No recent hospitalization is reported. ROS: 21:56 Constitutional: Negative for fever, chills, and weight loss, Eyes: Negative for injury, rn pain, redness, and discharge, Neck: Negative for injury, pain, and swelling, Cardiovascular: Negative for chest pain, palpitations, and edema, Respiratory: Negative for shortness of breath, cough, wheezing, and pleuritic chest pain, Abdomen/GI: Negative for abdominal pain, nausea, vomiting, diarrhea, and constipation, MS/Extremity: Negative for injury and deformity, Skin: Negative for injury, rash, and discoloration, Neuro: Negative for headache, and seizure. Exam: 21:56 Constitutional: Overweight male, no acute distress, tearful Head/Face: Normocephalic, rn atraumatic. Eyes: Pupils equal round and reactive to light, extra-ocular motions intact. Lids and lashes normal. Conjunctiva and sclera are non-icteric and not injected. Cornea within normal limits. Periorbital areas with no swelling, redness, or edema. Neck: Trachea midline, no thyromegaly or masses palpated, and no cervical lymphadenopathy. Supple, full range of motion without nuchal rigidity, or vertebral point tenderness. No Meningismus. Cardiovascular: Regular rate and rhythm with a normal S1 and S2. No gallops, murmurs, or rubs. Normal PMI, no JVD. No pulse deficits. Respiratory: Lungs have equal breath sounds bilaterally, clear to auscultation and percussion. No rales, rhonchi or wheezes noted. No increased work of breathing, no retractions or nasal flaring. Abdomen/GI: Soft, non-tender, with normal bowel sounds. No distension or tympany. No guarding or rebound. No evidence of tenderness throughout. MS/ Extremity: Pulses equal, no cyanosis. Neuro: Awake, follows commands, + left sided weakness leg> arm, normal right sided strength. Vital Signs: 21:33 BP 134 / 78; Pulse 87; Resp 20; Temp 98.6(O); Pulse Ox 94% on R/A; Weight 90.72 kg; ao Height 5 ft. 6 in. (167.64 cm) (R); Pain 0/10; 22:49 BP 102 / 55; Pulse 96; Resp 17; Pulse Ox 97% on R/A; Pain 0/10; tl1 23:06 BP 119 / 68; Pulse 89; Resp 18; Pulse Ox 95% on R/A; mt 12/13 00:25 BP 108 / 83; Pulse 79; Resp 16; Temp 98.5; Pulse Ox 97% on R/A; Pain 0/10; tl1 12/12 21:33 Body Mass Index 32.28 (90.72 kg, 167.64 cm) ao MDM: 12/12 21:26 Patient medically screened. rn 23:45 Differential Diagnosis: electrolyte abnormality, hypoglycemia, pneumonia, sepsis, TIA, rn UTI, volume depletion. Data reviewed: vital signs, nurses notes, lab test result(s), EKG, radiologic studies, CT scan, plain films, and as a result, I will discharge patient. Counseling: I had a detailed discussion with the patient and/or guardian regarding: the historical points, exam findings, and any diagnostic results supporting the discharge/admit diagnosis, lab results, radiology results, the need for outpatient follow up, to return to the emergency department if symptoms worsen or persist or if there are any questions or concerns that arise at home. Response to treatment: the patient's condition has returned to base line, and as a result, I will discharge patient. Special discussion: I discussed with the patient/guardian in detail that at this point there is no indication for admission to the hospital. It is understood, however, that if the symptoms persist or worsen the patient needs to return immediately for re-evaluation. ED course: Pt at baseline, normal w/u, normal procalcitonin, normal UA, normal CXR and CT head, normal vitals, comfortable, more talkative, and watching TV, [facility] where prison doctor can monitor and reeval. . 12/12 20: Order name: Urine Microscopic Only rn 12/12 20:28 Order name: Basic Metabolic Panel; Complete Time: : rn 12/12 20:28 Order name: BNP; Complete Time: : rn 12/12 20:28 Order name: CBC with Diff; Complete Time: 22:23 rn 12/12 21:28 Order name: Magnesium; Complete Time: 22:23 rn 12/12 21:28 Order name: Protime (+inr); Complete Time: 23:17 rn 12/12 21:28 Order name: CT Head Brain wo Cont; Complete Time: 22:23 rn 12/12 21:28 Order name: Ptt, Activated; Complete Time: 23:17 rn 12/12 21:28 Order name: Troponin (emerg Dept Use Only); Complete Time: 22:23 rn 12/12 21:28 Order name: EKG; Complete Time: 21: rn 12/12 21:28 Order name: Procalcitonin; Complete Time: 23: rn 12/12 21:28 Order name: Blood Culture Adult (2) rn 12/12 21:28 Order name: XRAY Chest (1 view); Complete Time: 22:23 rn 12/12 23:46 Order name: Urine Dipstick--Ancillary (enter results) em1 12/12 21:28 Order name: Cardiac monitoring; Complete Time: 21:37 rn 12/12 21:28 Order name: EKG - Nurse/Tech; Complete Time: 21:37 rn 12/12 21:28 Order name: IV Saline Lock; Complete Time: 21: rn 12/12 21:28 Order name: Labs collected and sent; Complete Time: 21:37 rn 12/12 21:28 Order name: NPO; Complete Time: 21:37 rn 12/12 21:28 Order name: O2 Per Protocol; Complete Time: :37 rn 12/12 21:28 Order name: O2 Sat Monitoring; Complete Time: 21:37 rn 12/12 21:28 Order name: Urine Dipstick-Ancillary (obtain specimen); Complete Time: 23:40 rn Administered Medications: No medications were administered Disposition: 12/12/17 23:47 Discharged to Home. Impression: Altered mental status, unspecified. - Condition is Stable. - Discharge Instructions: Altered Mental Status. - SBAR form, Medication Reconciliation Form, Thank You Letter, Antibiotic Education, Prescription Opioid Use form. - Follow up: Private Physician; When: As needed; Reason: Recheck today's complaints, Re-evaluation by your physician. - Problem is an ongoing problem. - Symptoms have improved. Signatures: Dispatcher [employer] EDWA Madan Sandoval MD MD rn Lasagna, Tonya, RN RN tl1 Benito Ho RN RN ao Corrections: (The following items were deleted from the chart) 12/13 00:59 12/12 23:47 12/12/2017 23:47 Discharged to Home. Impression: Altered mental status, tl1 unspecified. Condition is Stable. Forms are Medication Reconciliation Form, Thank You Letter, Antibiotic Education, Prescription Opioid Use. Follow up: Private Physician; When: As needed; Reason: Recheck today's complaints, Re-evaluation by your physician. Problem is an ongoing problem. Symptoms have improved. rn
[2017-12-13 00:21] LABS: Urine Blood NEGATIVE (NEG); Urine Glucose NEGATIVE (NEG); Urine Protein NEGATIVE (NEG); Urine Specific Gravity 1.015 (1.005-1.030)
[2017-12-13 01:12] VITALS: BP 108/83; TEMP 98.5; O2SAT 97
[2017-12-13 01:14] LABS: Urine Bacteria <20 /HPF (NONE SEEN); Urine Culture Reflex Order NOT NEEDED; Urine RBC <5 /HPF (NONE SEEN)
--- NOTE | 2017-12-13 10:29 | EKG ---
Test Date: 2017-12-12 Test Time: 21:31:42 Cfa: FIGUEROA MEASUREMENT RESULTS: Intervals: Rate: 86 MS: 188 QRSD: 84 QT: 352 QTc: 421 [place]: P: 51 MS: 188 QRS: 6 T: 60 INTERPRETIVE STATEMENTS: Normal sinus rhythm Normal ECG Compared to ECG 12/03/2017 07:51:17 T-wave abnormality no longer present Electronically Signed On 12-13-17 10:27:11 CDT by Preston Guillory
== END 2017-12-13 00:59 | disposition home or self-care (01) ==
LOC: ER 21:23
DX: R41.82 Altered mental status, unspecified (principal); I10 Essential (primary) hypertension; E11.9 Type 2 diabetes mellitus without complications; I48.91 Unspecified atrial fibrillation; I69.354 Hemiplegia and hemiparesis following cerebral infarction affecting left non-dominant side; I50.9 Heart failure, unspecified; Z79.01 Long term (current) use of anticoagulants; Z79.4 Long term (current) use of insulin
CPT/HCPCS: 36415; 51702; 70450; 71045; 80048; 81003; 81015; 83735; 83880; 84145; 84484; 85025; 85610; 85730; 87040; 93005; 99284

== ENCOUNTER 2020-12-04 05:47 | Inpatient (IN) | payer OTHER ==
[2020-12-04 06:36] LABS: Absolute Lymphocytes (CBC) 2.1 K/uL (0.7-4.9); Basophils % 0.6 % (0-1.3); Hematocrit 39.7 % (39.6-49.0); Lymphocytes % 26.2 % (15.3-44.8); MPV 9.3 fL (7.6-11.3); RBC Red Blood Cell Count 4.06 M/uL (4.33-5.43)
[2020-12-04 06:58] LABS: Protime INR 1.17
--- NOTE | 2020-12-04 07:12 | RAD REPORT ---
EXAM DESCRIPTION: CT - Head Brain Wo Cont - 12/04/2020 6:56 am CLINICAL HISTORY: MENTAL STATUS CHANGE Headache, drowsiness COMPARISON: Head Brain Wo Cont dated 12/12/2017; Head Brain Wo Cont dated 12/03/2017 TECHNIQUE: All CT scans are performed using dose optimization technique as appropriate and may inclu de automated exposure control or mA/KV adjustment according to patient size. FINDINGS: No intracranial hemorrhage, hydrocephalus or extra-axial fluid collection.Gliosis in the c erebral hemispheres again noted unchanged.No areas of brain edema or evidence of midline shift. The paranasal sinuses and mastoids are clear. The calvarium is intact. IMPRESSION: No acute intracranial abnormality.
[2020-12-04 07:23] LABS: ALT/SGPT 29 U/L (12-78); AST/SGOT 22 U/L (15-37); Albumin 3.1 g/dL (3.4-5.0); Alkaline Phosphatase 70 U/L (45-117); Amylase 95 U/L (25-115); BUN Blood Urea Nitrogen 56 mg/dL (7-18); Bicarbonate 23 mmol/L (21-32); Bilirubin Direct 0.3 mg/dL (0-0.2); Bilirubin Total 1.1 mg/dL (0.2-1.0); CKMB Creatine Kinase MB < 1.0 ng/mL (0.3-3.6); Creatine Phosphokinase 295 U/L (39-308); Glucose Level 144 mg/dL (74-106); Lipase 837 U/L (73-393); Protein, Total 7.3 g/dL (6.4-8.2); Sodium Level 139 mmol/L (136-145); Troponin (Emerg Dept Use Only) < 0.02 ng/mL (0.0-0.045)
[2020-12-04 07:27] LABS: Potassium 6.3 mmol/L (3.5-5.1)
--- NOTE | 2020-12-04 08:37 | ER ---
Nurse's Notes [facility] Name: Sumanth Rodriguez Age: 70 yrs Sex: Male : 1950 Arrival Date: 12/04/2020 Time: 05:55 Bed 8 Private MD: Diagnosis: Acute kidney failure;Hyperkalemia;Altered mental status, unspecified Presentation: 12/04 05:50 Chief complaint: EMS states: Toned out to [facility], facility staff reported pt was ea unresponsive. Staff reports pt was awake and alert about 5 to 6 hours ago. Coronavirus screen: At this time, the client does not indicate any symptoms associated with coronavirus-19. Ebola Screen: No symptoms or risks identified at this time. Initial Sepsis Screen: Does the patient meet any 2 criteria? No. Patient's initial sepsis screen is negative. Does the patient have a suspected source of infection? No. Patient's initial sepsis screen is negative. Risk Assessment: Do you want to hurt yourself or someone else? Patient reports no desire to harm self or others. Onset of symptoms was December 04, 2020. 05:50 Method Of Arrival: EMS: [facility] 05:50 Acuity: TORY 3 ea 07:01 Acuity: TORY 2 hb Triage Assessment: 06:00 General: Appears in no apparent distress. Behavior is unresponsive. Pain: Unable to use ea pain scale. FLACC scale score is 0 out of 10. Neuro: Neuro: Level of Consciousness is unresponsive, Oriented to none. Cardiovascular: Patient's skin is warm and dry. Respiratory: Airway is patent Respiratory effort is even, unlabored, Respiratory pattern is regular, symmetrical. Derm: Skin is pink, warm \T\ dry. Historical: - Allergies: 06:42 No Known Allergies; ea - PMHx: 06:42 muscle spasms; Hypertension; Hyperlipidemia; hemiplegia left side; GERD; DYSPHAGIA; ea Diabetes - NIDDM; CVA; constipation; CHF; Atrial Fib; - PSHx: 06:42 None; ea - Immunization history:: Adult Immunizations up to date. - Social history:: Smoking status: Patient denies any tobacco usage or history of. Screenin:31 Abuse screen: Denies threats or abuse. Nutritional screening: No deficits noted. ea Tuberculosis screening: No symptoms or risk factors identified. Fall Risk IV access (20 points). Assessment: 06:40 General: Appears in no apparent distress. Behavior is calm, cooperative, appropriate ea for age. Pain: Denies pain. Neuro: Level of Consciousness is awake, alert, obeys commands, Oriented to person, place, time, situation. Respiratory: Airway is patent Respiratory effort is even, unlabored, Respiratory pattern is regular, symmetrical. Derm: Skin is pink, warm \T\ dry. 07:11 General: Appears in no apparent distress. comfortable, Behavior is calm, cooperative. ap3 General: Behavior is. Pain: Denies pain. Neuro: Level of Consciousness is awake, alert, obeys commands. Neuro: Patient is drowsy, but is oriented to person. Unable to assess patients orientation to place, date and situation at this time. . Respiratory: Airway is patent Respiratory effort is even, unlabored, Respiratory pattern is regular, symmetrical. 08:57 Reassessment: Patient is awake, oriented to self. Unable to assess patients orientation ap3 to place, date and situation at this time. Patient is in bed, side rails up X's 2 with call light within reach. Patient educated on hospitalization, and verbalized understanding. Patient denies pain at this time. 11:36 Reassessment: patient removes cardiac leads \T\ pulse ox. patient redirected multiple ap3 times, and educated on the need for cardiac and pulse ox monitoring. However, patients continues to remove them. 12:30 Reassessment: Patient appears in no apparent distress at this time. No changes from hb previously documented assessment. Patient and/or family updated on plan of care and expected duration. Pain level reassessed. Vital Signs: 05:57 Pulse 94; Resp 20; Temp 97.7; Pulse Ox 88% on R/A; ea 06:00 BP 114 / 79; ea 07:15 BP 114 / 97; Pulse 88; Resp 17; Pain 0/10; ap3 08:55 BP 138 / 98; Pulse 93; Resp 19; Pulse Ox 100% on 3 lpm NC; Pain 0/10; ap3 10:11 Pulse 118; Pulse Ox 97% on 3 lpm NC; ap3 11:51 BP 117 / 76; Pulse 79; Pulse Ox 97% on R/A; ap3 12:31 Weight 132.81 kg; Height 5 ft. 6 in. (167.64 cm); ap3 12:35 BP 97 / 75; Pulse 79; Pulse Ox 98% ; ap3 13:57 BP 107 / 57; Pulse 88; Pulse Ox 98% ; ap3 12:31 Body Mass Index 47.26 (132.81 kg, 167.64 cm) ap3 05:57 pt placed on O2 \T\ 2L per nasal cannula ea ED Course: 05:55 Patient arrived in ED. ea 06:00 Arm band placed on right wrist. Patient placed in an exam room, on a stretcher, on ea pulse oximetry. 06:00 Patient has correct armband on for positive identification. Placed in gown. Bed in low ea position. Call light in reach. Side rails up X2. 06:15 Inserted saline lock: 20 gauge in left antecubital area, using aseptic technique. Blood ea collected. 06:27 Brandon Daniels MD is Attending Physician. [facility] 06:30 Triage completed. ea 06:39 Chest Single View XRAY In Process Unspecified. EDMS 06:56 CT Head Brain wo Cont In Process Unspecified. EDMS 07:23 Ping Bennett RN is Primary Nurse. ap3 08:36 Dalton Sandoval MD is Hospitalizing Provider. ma2 09:24 CT Abd/Pelvis - Without Contrast In Process Unspecified. EDMS 13:34 Respiratory care therapist to see patient. ap3 14:15 No provider procedures requiring assistance completed. Patient admitted, IV remains in hb place. 03 07:27 Primary Nurse role handed off by Ping Bennett RN sv 07:27 Madison Bustillo RN is Primary Nurse. sv 19:16 Primary Nurse role handed off by Madison Bustillo RN [id number] Administered Medications: 02 08:40 Drug: Kayexalate (polystyrene) 30 grams Route: PO; ap3 08:59 Follow up: Response: No adverse reaction ap3 08:41 Drug: D50W 50 ml Route: IVP; Site: left hand; ap3 09:00 Follow up: Response: No adverse reaction ap3 08:42 Drug: Insulin Regular Human 10 units {Co-Signature: hb (Kirstie Read RN).} Route: ap3 IVP; Site: left hand; 09:00 Follow up: Response: No adverse reaction ap3 08:43 Drug: Albuterol 2.5 mg Route: Inhalation; ap3 Outcome: 08:36 Decision to Hospitalize by Provider. ma2 14:15 Admitted to ER Hold. Please see [facility] for further documentation. 14:15 critical 14:15 Instructed on the need for admit. 12/05 22:32 [place] [facility] [place] Signatures: Dispatcher [employer] EDMadison Thornton RN RN Kirstie Read RN RN Faye Gardner RN Karen Frey ea, MD MD ok2 Ping Bennett RN RN 3 Melodie Allen [facility] Eliel Roque RN RN [facility] [place] Brandon Daniels MD MD 7 Kirstie Read RN
--- NOTE | 2020-12-04 08:37 | EDPHYS ---
Physician Documentation [facility] Name: Sumanth Rodriguez Age: 70 yrs Sex: Male : 1950 Arrival Date: 12/04/2020 Time: 05:55 Bed 8 Private MD: ED Physician Brandon Daniels HPI: 12/04 06:52 This 70 yrs old Black Male presents to ER via EMS with complaints of Altered mental mh7 Status. 06:52 The patient presents with decreased responsiveness. Onset: The symptoms/episode mh7 began/occurred today, at an unknown time. Possible causes: unknown. Associated signs and symptoms: Pertinent negatives: abdominal pain, agitation, ataxia, blurred vision, chest pain, combativeness, diaphoresis, diarrhea, dizziness, headache, lightheadedness, nausea, numbness, palpitations, seizure, shortness of breath, tingling, vertigo, vomiting, weakness. Current symptoms: In the emergency department the patient's symptoms have improved, markedly, is more alert. Historical: - Allergies: 06:42 No Known Allergies; ea - PMHx: 06:42 muscle spasms; Hypertension; Hyperlipidemia; hemiplegia left side; GERD; DYSPHAGIA; ea Diabetes - NIDDM; CVA; constipation; CHF; Atrial Fib; - PSHx: 06:42 None; ea - Immunization history:: Adult Immunizations up to date. - Social history:: Smoking status: Patient denies any tobacco usage or history of. ROS: 06:52 Constitutional: Negative for fever, chills, and weight loss, Eyes: Negative for injury, mh7 pain, redness, and discharge, ENT: Negative for injury, pain, and discharge, Neck: Negative for injury, pain, and swelling, Cardiovascular: Negative for chest pain, palpitations, and edema, Respiratory: Negative for shortness of breath, cough, wheezing, and pleuritic chest pain, Abdomen/GI: Negative for abdominal pain, nausea, vomiting, diarrhea, and constipation, Back: Negative for injury and pain, : Negative for injury, bleeding, discharge, and swelling, MS/Extremity: Negative for injury and deformity, Skin: Negative for injury, rash, and discoloration, Psych: Negative for depression, anxiety, suicide ideation, homicidal ideation, and hallucinations, Allergy/Immunology: Negative for hives, rash, and allergies, Endocrine: Negative for neck swelling, polydipsia, polyuria, polyphagia, and marked weight changes, Hematologic/Lymphatic: Negative for swollen nodes, abnormal bleeding, and unusual bruising. Exam: 06:54 Head/Face: Normocephalic, atraumatic. Eyes: Pupils equal round and reactive to light, mh7 extra-ocular motions intact. Lids and lashes normal. Conjunctiva and sclera are non-icteric and not injected. Cornea within normal limits. Periorbital areas with no swelling, redness, or edema. Neck: Trachea midline, no thyromegaly or masses palpated, and no cervical lymphadenopathy. Supple, full range of motion without nuchal rigidity, or vertebral point tenderness. No Meningismus. Chest/axilla: Normal chest wall appearance and motion. Nontender with no deformity. No lesions are appreciated. 06:54 Constitutional: The patient appears in no acute distress, alert, awake. 06:57 Cardiovascular: Regular rate and rhythm with a normal S1 and S2. No gallops, murmurs, mh7 or rubs. Normal PMI, no JVD. No pulse deficits. Respiratory: Lungs have equal breath sounds bilaterally, clear to auscultation and percussion. No rales, rhonchi or wheezes noted. No increased work of breathing, no retractions or nasal flaring. Abdomen/GI: Soft, non-tender, with normal bowel sounds. No distension or tympany. No guarding or rebound. No evidence of tenderness throughout. Back: No spinal tenderness. No costovertebral tenderness. Full range of motion. Skin: Warm, dry with normal turgor. Normal color with no rashes, no lesions, and no evidence of cellulitis. 06:57 Musculoskeletal/extremity: ROM: left paresis, baseline, Circulation is intact in all extremities. Pulses: are normal with no appreciated deficits, Sensation intact. 06:57 Neuro: Orientation: to person, Mentation: able to follow commands, confused, Memory: no acute changes, Cranial nerves: no acute changes, Cerebellar function: no acute changes, Motor: left side paresis, baseline, Sensation: is normal, Gait: not tested. seizure activity, is not displayed by the patient, Abnormal movements: there are no abnormal movements. Vital Signs: 05:57 Pulse 94; Resp 20; Temp 97.7; Pulse Ox 88% on R/A; ea 06:00 BP 114 / 79; ea 07:15 BP 114 / 97; Pulse 88; Resp 17; Pain 0/10; ap3 08:55 BP 138 / 98; Pulse 93; Resp 19; Pulse Ox 100% on 3 lpm NC; Pain 0/10; ap3 10:11 Pulse 118; Pulse Ox 97% on 3 lpm NC; ap3 11:51 BP 117 / 76; Pulse 79; Pulse Ox 97% on R/A; ap3 12:31 Weight 132.81 kg; Height 5 ft. 6 in. (167.64 cm); ap3 12:35 BP 97 / 75; Pulse 79; Pulse Ox 98% ; ap3 13:57 BP 107 / 57; Pulse 88; Pulse Ox 98% ; ap3 12:31 Body Mass Index 47.26 (132.81 kg, 167.64 cm) ap3 05:57 pt placed on O2 \T\ 2L per nasal cannula ea MDM: 06:57 Transition of care: After a detail discussion of the patient's case, care is 7 transferred to Karen Dunn MD. 08:35 Differential Diagnosis: volume depletion, ARF, hyperkalemia . Data reviewed: vital ma2 signs, nurses notes. Counseling: I had a detailed discussion with the patient and/or guardian regarding: the historical points, exam findings, and any diagnostic results supporting the discharge/admit diagnosis, the presence of at least one elevated blood pressure reading (>120/80) during this emergency department visit, the need for outpatient follow up. Response to treatment: the patient's symptoms have markedly improved after treatment. 08:36 Patient medically screened. ma2 12/04 05:57 Order name: Amylase, Serum; Complete Time: 07:39 ea 12/04 05:57 Order name: Basic Metabolic Panel; Complete Time: 07:39 ea 12/04 05:57 Order name: Blood Culture Adult (2) ea 12/04 05:57 Order name: CBC with Diff; Complete Time: 07:39 ea 12/04 05:57 Order name: Ckmb; Complete Time: 07:39 ea 12/04 05:57 Order name: CPK; Complete Time: 07:39 12/04 05:57 Order name: Lactate; Complete Time: 07:39 12/04 05:57 Order name: LFT's; Complete Time: 07:39 ea 12/04 05:57 Order name: Lipase; Complete Time: 07:39 ea 12/04 05:57 Order name: Procalcitonin; Complete Time: 10:07 ea 12/04 05:57 Order name: Protime (+inr); Complete Time: 07:39 ea 12/04 05:57 Order name: Ptt, Activated; Complete Time: 07:39 ea 12/04 05:57 Order name: Troponin (emerg Dept Use Only); Complete Time: 07:39 ea 12/04 05:57 Order name: Urine Microscopic Only ea 12/04 07:06 Order name: SARS-COV-2 RT PCR; Complete Time: 07:39 EDMS 12/04 07:46 Order name: Glucose, Ancillary Testing; Complete Time: 08:30 EDMS 12/04 10:58 Order name: Urine Dipstick-Ancillary EDMS 12/04 13:57 Order name: ABG Arterial Blood Gas EDMS 12/04 14:27 Order name: T4 Free EDMS 12/04 14:27 Order name: Thyroid Stimulating Hormone EDMS 12/04 14:28 Order name: Ammonia EDMS 12/04 17:43 Order name: Glucose, Ancillary Testing EDMS 12/04 21:56 Order name: Glucose, Ancillary Testing EDMS 12/04 22:17 Order name: Renal Panel EDMS 12/04 22:17 Order name: Magnesium EDMS 12/05 07:15 Order name: CBC with Automated Diff EDMS 12/05 07:15 Order name: Retic Count EDMS 12/05 07:47 Order name: PTH Intact EDMS 12/05 08:01 Order name: Glucose, Ancillary Testing EDMS 12/04 05:57 Order name: Chest Single View XRAY ea 12/04 06:28 Order name: CT Head Brain wo Cont; Complete Time: 07:39 ea 12/04 08:33 Order name: CT Abd/Pelvis - Without Contrast; Complete Time: 10:07 ma2 12/05 03:33 Order name: Chest Single View XRAY rv 12/05 08:04 Order name: Urine Culture EDMS 12/05 08:07 Order name: Renal Panel EDMS 12/05 08:07 Order name: Uric Acid EDMS 12/05 08:07 Order name: Lipase EDMS 12/05 08:07 Order name: Thyroid Stimulating Hormone EDMS 12/05 08:07 Order name: Transferrin Sat/Iron Binding EDMS 12/05 08:07 Order name: Ferritin EDMS 12/05 08:07 Order name: Folic Acid, (Folate) EDMS 12/05 08:07 Order name: Vitamin B12 Level EDMS 12/05 08:23 Order name: US EDMS 12/05 08:27 Order name: US EDMS 12/05 08:46 Order name: RAD EDMS 12/05 08:49 Order name: Manual Differential EDMS 12/05 09:13 Order name: ABG Arterial Blood Gas EDMS 12/05 09:43 Order name: CT EDMS 12/05 10:02 Order name: Rheumatoid Factor EDMS 12/05 11:48 Order name: Glucose, Ancillary Testing EDMS 12/05 13:35 Order name: UR SODIUM EDMS 12/05 13:36 Order name: Urinalysis EDMS 12/05 13:38 Order name: UR PROTEIN EDMS 12/05 13:41 Order name: Urine Drug Screen EDMS 12/05 13:50 Order name: UR CREAT EDMS 12/05 13:50 Order name: Ur Protein EDMS 12/05 13:58 Order name: Urine Microscopic Only EDMS 12/05 14:52 Order name: Basic Metabolic Panel EDMS 12/05 15:34 Order name: RAD EDMS 12/05 16:08 Order name: RAD EDMS 12/05 17:38 Order name: Glucose, Ancillary Testing EDMS 12/04 05:57 Order name: Accucheck; Complete Time: 07:35 ea 12/04 05:57 Order name: Cardiac monitoring; Complete Time: 06:43 ea 12/04 05:57 Order name: EKG - Nurse/Tech; Complete Time: 06:43 ea 12/04 05:57 Order name: IV Saline Lock - Large Bore; Complete Time: 06:43 ea 12/04 05:57 Order name: Labs collected and sent; Complete Time: 06:43 ea 12/04 05:57 Order name: O2 Per Protocol; Complete Time: 06:43 ea 12/04 05:57 Order name: O2 Sat Monitoring; Complete Time: 06:43 ea 12/04 05:57 Order name: Urine Dipstick-Ancillary (obtain specimen); Complete Time: 06:43 ea 12/04 07:40 Order name: Bladder Scanner; Complete Time: 07:56 ma2 Administered Medications: 08:40 Drug: Kayexalate (polystyrene) 30 grams Route: PO; ap3 08:59 Follow up: Response: No adverse reaction ap3 08:41 Drug: D50W 50 ml Route: IVP; Site: left hand; ap3 09:00 Follow up: Response: No adverse reaction ap3 08:42 Drug: Insulin Regular Human 10 units {Co-Signature: hb (Kirstie Read RN).} Route: ap3 IVP; Site: left hand; 09:00 Follow up: Response: No adverse reaction ap3 08:43 Drug: Albuterol 2.5 mg Route: Inhalation; ap3 Disposition: 12/04/20 08:36 Hospitalization ordered by Dalton Sandoval for Inpatient Admission. Preliminary diagnosis are Acute kidney failure, Hyperkalemia, Altered mental status, unspecified. - Bed requested for Intensive Care Unit. - Status is Inpatient Admission. mg2 - Condition is Stable. - Problem is new. - Symptoms are unchanged. Signatures: Dispatcher [employer] [facility] Arpita Rivera RN RN Faye Gardner RN RN ea Alzahri, Mohammad, MD MD hi2 Ping Bennett RN RN ap3 Philly Wilkins Eliel Roque RN RN mg2 Brandon Daniels MD MD 7 Kirstie thao Corrections: (The following items were deleted from the chart) 06:24 06:04 CORONAVIRUS+ ordered. [facility] EDOH 14:47 08:36 Hospitalization Ordered by Dalton Sandoval MD for Inpatient Admission. Preliminary eb diagnosis is Acute kidney failure; Hyperkalemia; Altered mental status, unspecified. Bed requested for Telemetry/MedSurg (Inpatient). Status is Inpatient Admission. Condition is Stable. Problem is new. Symptoms are unchanged. [facility] 12/05 22:11 12/04 14:47 12/04/2020 08:36 Hospitalization Ordered by Dalton Sandoval MD for Inpatient cg Admission. Preliminary diagnosis is Acute kidney failure; Hyperkalemia; Altered mental status, unspecified. Bed requested for [facility] ER HOLD. Status is Inpatient Admission. Condition is Stable. Problem is new. Symptoms are unchanged. eb 12/05 22:32 22:11 12/04/2020 08:36 Hospitalization Ordered by Dalton Sandoval MD for Inpatient mg2 Admission. Preliminary diagnosis is Acute kidney failure; Hyperkalemia; Altered mental status, unspecified. Bed requested for Intensive Care Unit. Status is Inpatient Admission. Condition is Stable. Problem is new. Symptoms are unchanged. cg
[2020-12-04] MEDS ORDERED: ALBUTEROL 2.5 MG/3 ML NEB SOL ONE ×4 (08:43→23:14)
[2020-12-04] MEDS ORDERED: INSULIN -REGULAR HUMAN 50 UNIT/0.5 ML ML ONE ×2 (08:43→22:54)
[2020-12-04] MEDS ORDERED: SOD POLYSTYREN SUL 15 GM/60 ML UCUP ONE (08:43)
[2020-12-04] MEDS ORDERED: D50W 25 GM/50 ML SYRINGE IV ONE ×3 (08:45→22:21)
--- NOTE | 2020-12-04 09:44 | RAD REPORT ---
EXAM DESCRIPTION: CT - Abdomen Pelvis Wo Contrast - 12/04/2020 9:24 am CLINICAL HISTORY: Abdominal pain. ARF COMPARISON: No comparisons TECHNIQUE: CT imaging of the abdomen and pelvis was performed without contrast. Solid organ, bowel a nd vascular assessment is limited due to lack of IV and oral contrast. All CT scans are performed using dose optimization technique as appropriate and may include automated exposure control or mA/KV adjustment according to patient size. FINDINGS: Linear atelectasis in both lung bases posteriorly. Diffuse fatty liver is present. Cholecystectomy clips.Spleen, pancreas, adrenal glands and kidneys ar e within normal limits. No bowel obstruction, free air, free fluid or abscess. Moderate stool is present throughout the colon . The appendix is normal. Moderate lumbosacral degenerative changes. IMPRESSION: Diffuse fatty liver. Moderate stool retained throughout the colon. A limited non-contrast examination was performed as detailed.
--- NOTE | 2020-12-04 10:44 | P.HP ---
Certification for Inpatient Patient admitted to: Inpatient With expected LOS: >2 Midnights Practitioner: I am a practitioner with admitting privileges, knowledge of patient current condition, hospital course, and medical plan of care. Services: Services provided to patient in accordance with Admission requirements found in Title 42 Section 412.3 of the Code of Federal Regulations Patient History Date of Service: 12/04/20 Reason for admission: Acute renal failure, lethargic History of Present Illness: 70yo M, PMH: insulin dependent DM 2, hypertension, HL D, prior CVAs with left upper extremity weakness, tired, dysphagia, constipation, CHF, AFib Patient was sent to the ED from shelter due to altered mental status/lethargy. This reportedly occurred stricture several hr prior to presentation to the ED. I was unable to get a hold of the shelter. Brother was at bedside and did not have any other information. States he saw the patient last week when which time he was complaining about slightly more swelling in his legs. Workup in the ED revealed patient to be in acute renal failure with hyperkalemia, K: 6.3, creatinine: 7.5. His last known creatinine was 1.1 and 2018. Patient's brother denies any history of renal disease. CXR: Mild-moderate CHF pattern. CT brain negative Allergies No Known Allergies Allergy (Unverified 12/03/17 11:37) Home Medications: Apixaban [Eliquis *] 5 mg PO BID 12/03/17 Atorvastatin Calcium [Lipitor*] 40 mg PO DAILY 12/03/17 Docusate [Colace Cap*] 100 mg PO DAILY 12/03/17 Furosemide [Lasix*] 40 mg PO BID 12/03/17 Gabapentin [Neurontin*] 300 mg PO TID 12/03/17 Insulin Glargine,Hum.rec.anlog [Lantus] 30 units SQ BID 12/03/17 Lisinopril [Zestril] 10 ng PO DAILY 12/03/17 Metformin HCl [Glucophage*] 500 mg PO BID 12/03/17 Metoprolol Tartrate [Lopressor*] 25 mg PO BID 12/03/17 Multivitamin [Daily Etta] 1 tab PO DAILY 12/03/17 Polyethylene Glycol 3350 [Miralax] 17 gm PO DAILY 12/03/17 Cefuroxime Axetil [Cefuroxime] 500 mg PO BID #10 tab 12/05/17 Potassium Oral Tab [Klor-Con 10 mEq Tab*] 20 meq PO DAILY #30 tab 12/05/17 - Past Medical/Surgical History Diabetic: Yes -: CVA X3 -: HTN -: hyperlipidemia -: CHF -: GERD -: dysphagia -: left sided paralysis. -: DM2 -: fior - Family History Mother -: Hypertension - Social History Smoking Status: Never smoker Alcohol use: No CD- Drugs: No Caffeine use: No Place of Residence: [place] Review of Systems is unable to be obtained Physical Examination - Studies Laboratory Data (last 24 hrs) 12/04/20 06:10: PT 13.5 H, INR 1.17, APTT 27.2 12/04/20 06:10: WBC 8.20, Hgb 12.5 L, Hct 39.7, Plt Count 201 12/04/20 06:10: Sodium 139, Potassium 6.3 H*, BUN 56 H, Creatinine 7.50 H*, Glucose 144 H, Total Bilirubin 1.1 H, AST 22, ALT 29, Alkaline Phosphatase 70, Amylase 95, Lipase 837 H Assessment and Plan - Advance Directives Does patient have a Living Will: No Does patient have a Durable POA for Healthcare: No Physician Review Additional Text: Physical exam General: Unresponsive HEENT: Normal conjunctiva, sclerae anicteric, pupils constricted but reactive CV: RRR, no murmur Pulm: mild crackles at bases, labored respirations, on RA Abd: soft, non-distended Ext: 2+ LLE edema, 1+ RLE edema, no lesions Neuro: unresponsive Problem List Acute Encephalopathy DIO, without CKD Hyperkalemia DM 2, insulin-dependent Chronic combined CHF AFib Hypertension Anemia, likely secondary chronic kidney disease Unclear etiology of acute encephalopathy, possible uremia, however BUN not severely elevated. ABG, ammonia, UA ordered CT abdomen/pelvis ordered to rule out any obstructive uropathy Renal ultrasound ordered, urine electrolytes were ordered Patient received hyperkalemia cocktail in the ED, nephrology consulted for a KI/hyperkalemia concern for possible stroke, patient has had 3 in past, CT negative, obtain MRI brain if able to Obtain home medications, and continue as appropriate Brother states patient is DNR, but would want everything done, would be ok with dialysis pt's mental baseline is AAOx3 per brother, but brother helps make medical decisions. Code: DNR Dispo: ICU level of care, anticipate hospitalization > 2 days Time Spent Managing Pts Care (In Minutes): 60
--- NOTE | 2020-12-04 10:55 | RAD REPORT ---
EXAM DESCRIPTION: RAD - Chest Single View - 12/04/2020 6:39 am CLINICAL HISTORY: COUGH Chest pain. COMPARISON: Chest Single View dated 12/12/2017; Chest Single View dated 12/03/2017 FINDINGS: Portable technique limits examination quality. Bilateral interstitial lung prominence is present, greater on the right, likely representing pulmonar y edema or pneumonia. The heart is mildly enlarged in size. No displaced fractures.
[2020-12-04 10:58] LABS: Urine Blood 2+ (Negative); Urine Glucose Negative (Negative); Urine Protein 2+ (Negative)
[2020-12-04 11:51] LABS: Urine Bacteria >50 /HPF (NONE SEEN); Urine Mucus 1+ /HPF (NONE SEEN); Urine Urothelial Cells <5 /HPF (NONE SEEN)
[2020-12-04] MEDS ORDERED: NA CHLORIDE 0.9% 1,000 ML ONE ×2 (12:06→15:35)
[2020-12-04] MEDS ORDERED: GLUCAGON 1 MG/VIAL IM PRN (12:41)
[2020-12-04] MEDS ORDERED: D50W 25 GM/50 ML VIAL IV PRN (13:12)
[2020-12-04] MEDS ORDERED: INSULIN -REGULAR HUMAN 50 UNIT/0.5 ML ML IV ONE ×2 (13:15→22:22)
[2020-12-04 13:56] LABS: Arterial Blood Carboxyhemoglob 1.9 % (0-1.5); Blood Gas Oxyhemoglobin 88.1 % (94-97); Blood O2 Saturation 90.5 % (92-98.5)
[2020-12-04] MEDS ORDERED: FUROSEMIDE 40 MG/4 ML VIAL IV ONE ×2 (14:00→22:22)
[2020-12-04] MEDS ORDERED: Meropenem 500 MG VIAL IV SCH (14:00)
[2020-12-04] MEDS ORDERED: NA CHLORIDE 0.9% 1,000 ML IV ONE (14:00)
[2020-12-04] MEDS ORDERED: ALBUTEROL 2.5 MG/3 ML NEB SOL NEB ONE ×2 (14:00→22:21)
[2020-12-04] MEDS: INSULIN -REGULAR HUMAN 50 UNIT/0.5 ML ML SQ SCH ×3 (14:13→21:00)
--- NOTE | 2020-12-04 14:25 | CON ---
Date of Consultation: 12/04/2020 Reason For Consultation: Elevated BUN and creatinine, hyperkalemia. History Of Present Illness: All the information has been obtained from the brother by bedside. The brother is one of my patient, who recently consulted. The patient has past medical history of coronary artery disease complicated with congestive heart failure, diabetes complicated with neuropathy and no retinopathy, CVA with left-sided weakness, AFib, the patient was in his regular state of health, was in the [facility]. Apparently, the brother visited him today, found him poorly responsive, altered mental status. For that reason, brought to the emergency room. In the emergency room, primary workup found to have elevation in BUN and creatinine with hyperkalemia, potassium 6.3 and creatinine 7.5. Reviewing the record for the patient back in 2018, creatinine 1.1 with GFR of 76. Reviewing the record from the [facility], the patient on Lasix, metformin, and lisinopril. No previous lab data in the [facility]. Past Medical History: Includes; 1. Diabetes complicated with neuropathy. 2. Hypertension. 3. Hyperlipidemia. 4. CVA with left-sided weakness. 5. AFib. 6. Coronary artery disease complicated with congestive heart failure. Past Surgical History: Includes cholecystectomy. Allergies: NO KNOWN DRUGS ALLERGY. Family History: Positive for hypertension and kidney disease. Social History: A [facility], wheelchair. Denied smoking. Denied drugs abuse. Review of Systems: None obtainable. Home Medications: Include; 1. Metformin. 2. Lisinopril 20 mg. 3. Multivitamin. 4. Metoprolol. 5. Lasix. 6. Gabapentin. 7. Atorvastatin. 8. Eliquis. Current Medications: In the hospital; the patient in the ER was started on IV fluid. Physical Examination: Vital Signs: When I saw the patient; blood pressure 108/83, pulse of 79, afebrile. The patient had Rausch, had clear urine. Chest: Clear to auscultation. Heart: S1, S2. Regular. Abdomen: Morbidly obese. Could not appreciate any organomegaly. Extremities: Trace edema. Neuro: The patient poorly responsive. Moving upper extremity. Laboratory Data: Chest x-ray; cardiomegaly with mild congestion compared with previous chest x-ray, no significant changes. Sodium 139, potassium 6.3, bicarb 23, BUN 56, creatinine 7.5, GFR of 9, calcium 8.6. CK 295. Procalcitonin 0.4. WBC 8.2, H and H 12.5/39.7, platelets 210. Urinalysis; specific gravity of 1.020, RBC more than 50, WBC of 20, +2 protein. Urine drug screen not done yet. Assessment And Plan: 1. Acute kidney injury, multifactorial, looked to me more prerenal, CT ruled out any obstructive uropathy, proteinuric I going to go ahead and discontinue lisinopril, discontinue metformin, discontinue Lasix. I am going to send for workup given the presence of hematuria. I am going to repeat the UA if it could be traumatic. If UA showing hematuria, we will send for full serology. I am going to send for PTH and do renal ultrasound to evaluate the chronicity of the disease and we will follow up the patient. We will start the patient on IV fluid. 2. Hypertension, currently normal blood pressure with presence of acute kidney injury. Hold Lasix and lisinopril. 3. Diabetes. Hold metformin. 4. Coronary artery disease, congestive heart failure, looked to me currently normal volume. We will start the patient on hydration, discontinue Lasix. 5. Hyperkalemia secondary to renal failure. I am going to go ahead and discontinue lisinopril. Start the patient on IV hydration. I will bolus the patient with 1 L and we will give the patient after the bolus 40 of Lasix, try to establish more potassium diuresis. We will keep the patient on albuterol and D50 with insulin and we will repeat lab in 4 hours. If the patient continued to have worsening kidney function, the patient may need renal replacement therapy. I spoke to the brother by bedside, brother on agreement. We will follow up. 6. Anemia possible secondary to chronic kidney disease with the presence of acute kidney injury. To rule out light chain disease, we will send for anemia workup and serum protein electrophoresis. Thank you Dr. Sandoval for allowing us to participate in the care of your patient. Time spent discussing with the patient, examining the patient, [id number] with the patient, placing orders, discussing the case with our steamblaster including nursing, discussing the case with the other subspecialty including Cardiology and hospitalist 75 minutes. SANDRA Voice ID: [id number] Report ID: [id number] MTDD
[2020-12-04 14:27] LABS: Thyroid Stimulating Hormone 0.579 uIU/mL (0.360-3.740)
[2020-12-04] MEDS: Meropenem 500 MG in NA CHLORIDE 0.9% 100 ML IV SCH (15:35)
[2020-12-04] MEDS ORDERED: LORazepam 2 MG/ML VIAL IV ONE (16:01)
[2020-12-04] MEDS ORDERED: LORazepam 2 MG/ML VIAL ONE (16:14)
[2020-12-04] MEDS ORDERED: FUROSEMIDE 40 MG/4 ML VIAL ONE ×3 (20:23→22:55)
[2020-12-04 22:14] LABS: Albumin 3.4 g/dL (3.4-5.0); Magnesium 2.1 mg/dL (1.8-2.4); Phosphorus 4.6 mg/dL (2.5-4.9)
[2020-12-04 22:17] LABS: Potassium 7.4 mmol/L (3.5-5.1)
[2020-12-04] MEDS ORDERED: CALCIUM GLUC 10% INJ 4.65 MEQ in NA CHLORIDE 0.9% 100 ML IV ONE (22:24)
[2020-12-04] MEDS ORDERED: CALCIUM GLUCONATE 1 GM IVPB 1 GM/50 ML BAG IV ONE (22:54)
[2020-12-04] MEDS ORDERED: D50W 50 ML IV ONE (22:54)
[2020-12-04] MEDS ORDERED: NA CHLORIDE 0.9% 2,000 ML ONE (22:55)
[2020-12-04] MEDS ORDERED: NA CHLORIDE 0.9% 100 ML IV ONE (23:29)
[2020-12-04] MEDS ORDERED: LIDOCAINE 1% MPF 30 ML VIAL ONE (23:29)
[2020-12-04] MEDS ORDERED: HEPARIN 5000 UNIT/ML 1 ML VIAL ONE (23:29)
[2020-12-04] MEDS ORDERED: FENTANYL CITR 100 MCG/2 ML ONE (23:47)
[2020-12-04] MEDS ORDERED: MIDAZOLAM HCL 2 MG/2 ML INJ ONE (23:47)
[2020-12-04] MEDS ORDERED: ONDANSETRON 4 MG/2 ML VIAL ONE (23:48)
[2020-12-04] MEDS ORDERED: dexAMETHasone 4 MG/ML VIAL ONE (23:48)
[2020-12-04] MEDS ORDERED: CEFAZOLIN/SWI 1gm 1 GM/10 ML SYR ONE (23:53)
[2020-12-04] MEDS ORDERED: ETOMIDATE 20 MG/10 ML VIAL IV ONE (23:57)
--- NOTE | 2020-12-05 00:11 | P.OP ---
Flower Stripper: NONE,NONE Preoperative diagnosis: Hyperkalemia, ARF Postoperative diagnosis: same Primary procedure: Right SubclavianQuinton Catheter Secondary procedure: Fluoroscopy Anesthesia: General Estimated blood loss: min Specimen: none Findings: as above Complications: None Transferred to: Recovery Room Condition: Good
--- NOTE | 2020-12-05 01:01 | OP ---
Date of Procedure: 12/05/2020 Surgeon: Fidel Driver MD Nutrition Instructor: None. Preoperative Diagnoses: Acute renal failure, hyperkalemia. Postoperative Diagnoses: Acute renal failure, hyperkalemia. Procedures: Placement of right subclavian Wu catheter, interpretation of intraoperative fluoros copy. Estimated Blood Loss: Minimal. Specimen: None. Findings: Unable to cannulate the right IJ vein, therefore, right subclavian vein used. Anesthesia: General. Complications: None. Disposition: The patient tolerated the procedure in stable condition and taken to Recovery in good g eneral condition. Procedure In Detail: The patient was brought to the OR and placed in supine position. General anest hesia begun. The patient was prepped and draped in the usual sterile fashion. Lidocaine 1% infiltra key locally. An 18-gauge needle was used to access the right IJ vein. Guidewire was passed but was not able to advance it safely, therefore this site was aborted, and then a right subclavian vein was accessed, the guidewire was placed, and then position confirmed with fluoroscopy. Seldinger techniqu e was used. Vein dilated and then catheter placed into the SVC, secured with 2-0 nylon, flushed with heparin, and packed with heparin with good blood flow. Sterile dressing was applied. The patient was awakened and taken to Recovery in good general condition. [facility] st x-ray has been ordered. /MODL Voice ID: [id number] Report ID: [id number]
--- NOTE | 2020-12-05 01:11 | PREOPCON ---
Date of Consultation: 12/04/2020 Reason For Consultation: Patient needs emergent hemodialysis. History Of Present Illness: The patient is a 70-year-old gentleman with multiple medical problems, c danii from a alf with altered mental status and lethargy, potassium was 6.3 this morning. Was treated medically and it has gone up to 7.4. Patient needs urgent dialysis and I was asked to place a catheter. He is having difficulty breathing. He is on BiPAP in the ER and had acute renal failur e. Review of Systems: He does not able to provide any review of systems, but per the chart patient does not have any histor y of kidney disease. He had a chest x-ray done which showed CHF pattern and CT of the brain was nega tive. Otherwise unremarkable. Medical History: Significant for strokes x3, hypertension, hyperlipidemia, CHF, GERD, dysphagia, lef t-sided paralysis, type 2 diabetes, morbid obesity. Past Surgical History: Cholecystectomy. Allergies: NO ALLERGIES Social History: Patient does not smoke or drink alcohol. Family History: Noncontributory. Physical Examination: Vital signs: Currently, blood pressure 158/104, pulse rate of 81, respiratory rate of 16. He is on CPAP, BiPAP and O2 saturation is 92%. He is afebrile. Head and Neck: No masses. Chest: Clear in the top and diminished in the base. Heart: S1 and S2. Abdomen: Soft, nondistended, nontender. Positive bowel sounds. Extremities: Neurovascularly intact. Neuro: Nonfocal. Laboratory Data: H and H 12.5 and 39.7, there is no left shift. INR is 1.17. PO2 is 68.6, pCO2 is 55.1, that was on room air. His potassium is 7.4, his BUN is 55 and his creatinine is 7.51. Assessment: Hyperkalemia, acute renal failure, respiratory distress. Recommendation: We will urgently place a Uw catheter for emergent dialysis. Brother understand the risks, benefits, and alternatives and agrees to procedure. /MODL Voice ID: [id number] Report ID: [id number]
[2020-12-05] MEDS ORDERED: NOREPINEPHRINE 4mg/D5W 250mL 4 MG/250 ML BAG IV ONE ×2 (01:53→06:05)
--- NOTE | 2020-12-05 04:21 | P.PN ---
Date of Service: 12/05/20 Was notified of critical lab potassium 7.4 last night, patient refractory hyperkalemia to treatment. Additional therapy was ordered including 2 L normal saline bolus, 80 mg of Lasix, 10 units IV insulin, an amp of dextrose, 1 g calcium gluconate, patient is to obtunded/confused for Kayexalate and currently on BiPAP. Nephrology was contacted and requested emergent placement of temporary dialysis catheter, General Surgery was consulted who agreed to come place temporary dialysis catheter. Patient had successful insertion of tempo rary dialysis catheter to the right subclavian, dialysis nurse was called out and attempted to initiate dialysis the patient's blood pressure dropped. Nephrology was again contacted by dialysis nurse who recommended nor epi drip, patient with poor IV access and difficult body habitus for central line placement, for this reason he was arrange for patient to receive PICC line. Nursing staff successfully placed PICC line to the left upper extremity, Levophed drip was initiated and dialysis was initiated. Patient clinically does not appear well, prognosis guarded. DNR in place.
[2020-12-05 07:11] LABS: Absolute Lymphocytes (CBC) 0.5 K/uL (0.7-4.9); Basophils % 0.1 % (0-1.3); Hematocrit 39.5 % (39.6-49.0); Lymphocytes % 4.6 % (15.3-44.8); MPV 9.2 fL (7.6-11.3); RBC Red Blood Cell Count 4.05 M/uL (4.33-5.43)
[2020-12-05] MEDS: INSULIN -REGULAR HUMAN 50 UNIT/0.5 ML ML SQ SCH ×4 (07:30→21:00)
[2020-12-05 08:02] LABS: Albumin 3.4 g/dL (3.4-5.0); Ferritin 282.6 ng/mL (26-388); Folic Acid, (Folate) 8.1 ng/mL (3.1-17.5); Phosphorus 2.9 mg/dL (2.5-4.9); Thyroid Stimulating Hormone 0.32 uIU/mL (0.360-3.740); Uric Acid 5.6 mg/dL (3.5-7.2)
[2020-12-05] MEDS: Meropenem 500 MG in NA CHLORIDE 0.9% 100 ML IV SCH (08:05)
[2020-12-05 08:07] LABS: Potassium 5.6 mmol/L (3.5-5.1)
[2020-12-05] MEDS ORDERED: INSULIN -REGULAR HUMAN 50 UNIT/0.5 ML ML ONE (08:15)
[2020-12-05] MEDS ORDERED: Meropenem 500 MG/100 ML BAG ONE (08:15)
[2020-12-05] MEDS ORDERED: NOREPINEPHRINE 4 MG in D5W 250 ML IV PRN (08:19)
--- NOTE | 2020-12-05 08:22 | RAD REPORT ---
EXAM DESCRIPTION: US - Extrem Venous W Compress [place] - 12/04/2020 11:02 pm CLINICAL HISTORY: r/o DVT Bilateral leg edema and swelling. COMPARISON: No comparisons TECHNIQUE: Real-time sonographic interrogation of the left and right lower extremity deep venous sys tems was performed. FINDINGS: Normal compressibility, flow augmentation, phasic flow and spontaneous flow is identified in both the left and right lower extremity deep venous systems. IMPRESSION: No sonographic evidence of left or right lower extremity deep venous thrombosis.
--- NOTE | 2020-12-05 08:27 | RAD REPORT ---
EXAM DESCRIPTION: US - Renal Ultrasound-Complete - 12/04/2020 11:02 pm CLINICAL HISTORY: acute renal failure Abdominal pain COMPARISON: No comparisons FINDINGS: Body habitus and patient positioning limits the study. Grossly, both kidneys are normal in size, shape and echotexture. The right kidney measures 8.9 x 4.0 x 3.8 cm. No hydronephrosis, focal mass or perinephric fluid. The left kidney measures 13.0 x 6.8 x 6.3 cm. No hydronephrosis, focal mass or perinephric fluid. The urinary bladder is incompletely distended without gross abnormality seen. IMPRESSION: Grossly normal renal sonogram.
--- NOTE | 2020-12-05 08:45 | RAD REPORT ---
EXAM DESCRIPTION: RAD - Fluoroscopy <1 Hour - 12/05/2020 8:41 am CLINICAL HISTORY: Venous catheter insertion. TESSIO CATH PLACEMENT COMPARISON: No comparisons FINDINGS: Fluoroscopic imaging is submitted from placement of a venous catheter. Details of the pro cedure not available. Fluoroscopy time: 0.3 minutes
[2020-12-05 08:48] LABS: Blood Morphology Comment NOT SEEN (NOT SEEN); Platelet Estimate ADEQ
[2020-12-05 09:11] LABS: Arterial Blood Carboxyhemoglob 1.9 % (0-1.5); Blood Gas Oxyhemoglobin 95.3 % (94-97)
--- NOTE | 2020-12-05 09:20 | EKG ---
Test Date: 2020-12-04 Test Time: 06:20:39 Pharmacovigilance Safety Expert: MILAN MEASUREMENT RESULTS: Intervals: Rate: 94 FL: 184 QRSD: 90 QT: 322 QTc: 402 [place]: P: 65 FL: 184 QRS: 23 T: 48 INTERPRETIVE STATEMENTS: Normal sinus rhythm Nonspecific T wave abnormality Abnormal ECG Compared to ECG 12/12/2017 21:31:42 T-wave abnormality now present Electronically Signed On 12-05-20 09:17:21 CDT by Preston Guillory
--- NOTE | 2020-12-05 09:43 | RAD REPORT ---
EXAM DESCRIPTION: CT - Abdomen Pelvis Wo Contrast - 12/05/2020 9:31 am CLINICAL HISTORY: Abdominal pain. Per nephrology, worsening renal fx, hyperK, repeat COMPARISON: Abdomen Pelvis Wo Contrast dated 12/04/2020 TECHNIQUE: CT imaging of the abdomen and pelvis was performed without contrast. Solid organ, bowel a nd vascular assessment is limited due to lack of IV and oral contrast. All CT scans are performed using dose optimization technique as appropriate and may include automated exposure control or mA/KV adjustment according to patient size. FINDINGS: Mild linear subsegmental atelectasis in both lung bases. Diffuse fatty liver is present. Cholecystectomy.The spleen, pancreas, adrenal glands and kidneys are within normal limits. No bowel obstruction, free air, free fluid or abscess. Moderate stool is present throughout the colon . The appendix is not identified as a discrete structure, however, no secondary findings of appendici tis are identified. Moderate lumbosacral degenerative changes.Rausch catheter is present in the urinary bladder. Prostate gland is mildly prominent. [place] soft tissue lesion in about the left inferior flank measures 13.2 x 5.0 cm and is unchanged since prior study. It is of unclear etiology and significance. IMPRESSION: Moderate diffuse fatty liver is present. No acute renal finding on limited noncontrast study. Moderate stool. A limited non-contrast examination was performed as detailed.
[2020-12-05 10:01] LABS: Rheumatoid Factor NEG (NEG)
[2020-12-05] MEDS ORDERED: NOREPINEPHRINE 8 MG in Dextrose 5%-Water 500 ML IV PRN (10:45)
--- NOTE | 2020-12-05 12:53 | P.CNS ---
Date of Consult: 12/05/20 Reason for Consult: Respiratory failure Chief Complaint: Acute renal failure, lethargic History of Present Illness: Patient is 70 years of age multiple medical problems including diabetes hypertension and stroke accepted admitted from [facility] with altered mental status lethargy patient is currently alert responsive cooperative wants to have the BiPAP removed from his face also in renal failure Appears to be acute with hyperkalemia Allergies No Known Allergies Allergy (Unverified 12/03/17 11:37) Home Medications: Apixaban [Eliquis *] 5 mg PO BID 12/03/17 Atorvastatin Calcium [Lipitor*] 40 mg PO DAILY 12/03/17 Docusate [Colace Cap*] 100 mg PO DAILY 12/03/17 Furosemide [Lasix*] 40 mg PO BID 12/03/17 Gabapentin [Neurontin*] 100 mg PO TID 12/03/17 Insulin Glargine,Hum.rec.anlog [Lantus] 10 units SQ DAILY 12/03/17 Lisinopril [Zestril] 20 mg PO DAILY 12/03/17 Metformin HCl [Glucophage*] 850 mg PO BID 12/03/17 Metoprolol Tartrate [Lopressor*] 50 mg PO BID 12/03/17 Multivitamin [Daily Etta] 1 tab PO DAILY 12/03/17 Potassium Oral Tab [Klor-Con 10 mEq Tab*] 20 meq PO DAILY #30 tab 12/05/17 Baclofen 10 mg PO TID 12/04/20 Insulin Glargine Human [Lantus*] 10 units SQ ACHS 12/04/20 Insulin Glargine Human [Lantus*] 14 units SQ BID 12/04/20 Insulin Glargine Human [Lantus*] 14 units SQ BID 12/04/20 Insulin Lispro [Humalog*] 5 units SQ ACHS 12/04/20 Linagliptin [Tradjenta] 5 mg PO DAILY 12/04/20 Trazodone [Desyrel] 100 mg PO BEDTIME 12/04/20 - Past Medical/Surgical History Diabetic: Yes -: CVA X3 -: HTN -: hyperlipidemia -: CHF -: GERD -: dysphagia -: left sided paralysis. -: DM2 -: insomnia -: cognitive communication deficit -: muscle weakness -: fior - Family History Mother Medical History: Hypertension - Social History Smoking Status: Unknown if ever smoked Alcohol use: No CD- Drugs: No Caffeine use: No Place of Residence: [place] Review of Systems is unable to be obtained Physical Examination Temp Pulse Resp BP Pulse Ox 98 F 91 H 13 136/66 100 12/05/20 07:00 12/05/20 12:30 12/05/20 12:30 12/05/20 12:30 12/05/20 12:30 General: Alert, Moderate distress Respiratory: Clear to auscultation bilaterally Cardiovascular: No edema, Normal S1 S2 - Problems (1) Renal failure Current Visit: Yes Status: Acute Plan: Patient is 70 years of age admitted with acute renal failure emergent dialysis respiratory distress he seems to be improving slubber frame changer to nasal cannula agree with meropenem he is high risk for resistant infection await for cultures urine shows 3+ gram-negative storm white count is mildly elevated chest x-ray some in nonspecific interstitial changes no evidence of pneumonia likely volume overload on admission due to acute renal failure blood pressure stable Qualifiers: Chronic kidney disease stage: stage 4 (severe)
[2020-12-05 13:34] LABS: Urine Appearance CLEAR (Clear); Urine Bilirubin NEGATIVE (Negative); Urine Blood 2+ (Negative); Urine Color YELLOW (Yellow); Urine Glucose TRACE (Negative); Urine Protein TRACE (Negative); Urine pH 6.5 (5.0-7.0)
[2020-12-05 13:35] LABS: Urine Microscopic Reflex ORDER UMIC
[2020-12-05 13:41] LABS: Barbiturates NEGATIVE (NEGATIVE); Benzodiazepines NEGATIVE (NEGATIVE); Cocaine NEGATIVE (NEGATIVE); METHAMPHETAM NEGATIVE (NEGATIVE); Methadone NEGATIVE (NEGATIVE); Opiates NEGATIVE (NEGATIVE); Phencyclidine NEGATIVE (NEGATIVE); THC Cannibis NEGATIVE (NEGATIVE)
--- NOTE | 2020-12-05 13:42 | P.PN ---
Subjective Date of Service: 12/05/20 Chief Complaint: Acute renal failure, lethargic Subjective: Worsening (received IVF, kayexalate, insulin, lasix overnight for worsening hyperkalemia. Required Urgent dialysis cath placement and underwent emergent dialysis. hypotensive and required levophed while on dialysis. patient more awake/alert this morning, still with some confusion, but more cooperative) Review of Systems 10-point ROS is otherwise unremarkable Physical Examination - Vital Signs Temperature: 98 F Blood Pressure: 139/69 Pulse: 79 Respirations: 14 Pulse Ox (%): 99 Assessment & Plan Physician Review Additional Text: Physical exam General: AAOx1, awake HEENT: Normal conjunctiva, sclerae anicteric, PERRL CV: RRR, no murmur Pulm: mild crackles at bases, nonlabored on CPAP Abd: soft, non-distended Ext: 2+ LLE edema, 1+ RLE edema, no lesions Problem List Acute Encephalopathy DIO, without CKD severe sepsis secondary to urinary tract infection Hyperkalemia DM 2, insulin-dependent Chronic combined CHF AFib Hypertension Anemia, likely secondary chronic kidney disease acute metabolic encephalopathy - likely due to sepsis /UTI vs uremia pt with hypotension overnight, requiring levophed during dialysis Continue merrem - pt with risk of resistant bacteria CT abdomen/pelvis ruled out obstructive uropathy dialysis cath placed emergently last night 12/04, and underwent dialysis. Nephrology following. f/u DIO workup concern for possible stroke, patient has had 3 in past, CT negative, consider MRI if has new focal findings once more awake and cooperative for MRI continue home meds as appropriate Brother states patient is DNR, but would want everything done pt's mental baseline is AAOx3 per brother, but brother helps make medical decisions. follow up on cultures. Code: DNR Dispo: contine ICU level of care, anticipate hospitalization > 2 days Time Spent Managing Pts Care (In Minutes): 45
[2020-12-05 13:50] LABS: Urine Protein/Creatinine Ratio 0.65 ratio (<0.15)
[2020-12-05 13:58] LABS: Urine Bacteria <20 /HPF (NONE SEEN); Urine Urothelial Cells <5 /HPF (NONE SEEN)
[2020-12-05 14:51] LABS: Potassium 5.7 mmol/L (3.5-5.1)
--- NOTE | 2020-12-05 15:33 | RAD REPORT ---
EXAM DESCRIPTION: Chest Single View CLINICAL HISTORY: PICC LINE COMPARISON: 12/05/2020 FINDINGS: Single frontal view of the chest. Tubes and lines: Left arm PICC with tip in the SVC. Right subclavian hemodialysis catheter with tip i n the SVC. Leads overlie the chest. Cardiomediastinal silhouette: Stable Lungs: Persistent pulmonary vascular congestion and bilateral interstitial opacities. Low lung volume s. Bones: Stable. Upper abdomen: Stable. IMPRESSION: 1. Left arm PICC with tip in the SVC. Otherwise stable appearance of the chest. Electronically signed by: Johann Charles 12/05/2020 4:20 AM CDT Due to temporary technical issues with the PACS/Fluency reporting system, reports are being signed by the in house radiologists without review as a courtesy to insure prompt reporting. The interpreting radiologist is fully responsible for the content of the report.
--- NOTE | 2020-12-05 16:07 | RAD REPORT ---
EXAM DESCRIPTION: Chest Single View 12/05/2020 12:38 AM CDT CLINICAL HISTORY: 70 years, Male, S/P Wu catheter COMPARISON: None. FINDINGS: Single view of the chest was obtained portable. No prior films are available for compariso n. The heart is prominent. The thoracic aorta is within normal limits. There is a right subclavian temporary dialysis catheter tip at the cavoatrial junction and good position. There is slight decre ased lung volume. There is no evidence for pneumothorax. There is increased interstitial pulmonary ma rkings. Questionable small trace pleural effusions. The rest of the soft tissue and bony structures d emonstrate to be unremarkable. IMPRESSION: Right subclavian temporary dialysis catheter tip at the cavoatrial junction and good pos ition. No evidence for pneumothorax. Cardiomegaly with venous congestion. Electronically signed by: Stevie Goldman MD 12/05/2020 12:41 AM CDT Due to temporary technical issues with the PACS/Fluency reporting system, reports are being signed by the in house radiologists without review as a courtesy to insure prompt reporting. The interpreting radiologist is fully responsible for the content of the report.
[2020-12-05] MEDS ORDERED: SOD POLYSTYREN SUL 15 GM/60 ML UCUP PO ONE (21:19)
--- NOTE | 2020-12-05 22:50 | PN ---
Date of Progress Note: 12/05/2020 Chief Complaint: Acute kidney injury, severe, associated with severe hyperkalemia. History Of Present Illness: Potassium was elevated and the patient had dialysis done last night to o btain metabolic clearance and ultrafiltration. After dialysis, potassium level improved and stabiliz ed at 5.7. Metabolic acidosis is controlled. The patient has multiple medical problems including hi story of diabetes mellitus. He was taking Lasix for legs edema. The patient has history of CVA with left weakness, atrial fibrillation, coronary artery disease, and congestive heart failure. The peterson ent is feeling better today. Review of Systems: Denies fever or chills. Physical Examination: Lungs: Diminished breath sounds at bases. Heart: S1, S2. Abdomen: Soft, benign. Extremities: Slight edema. Impression And Plan: 1.Acute kidney injury, multifactorial, secondary to volume depletion and potentiated by NAIN inhibito r effect. The patient was taking up metformin due to severe acute kidney injury. Hyperkalemia has o verall improved. The patient will have dialysis tomorrow in the morning for metabolic clearance and the patient is to have blood pressure medication for pressure control. NANI inhibitor is on hold. 2.Anemia. Workup is pending to rule out monoclonal gammopathy of unknown significance. Additional imaging tests were done to rule out obstructive uropathy. 3.Diabetes mellitus. Monitor blood glucose. Adjust insulin. 4.History of proteinuria. The patient is undergoing workup for monoclonal gammopathy of unknown sig nificance. EB/MODL Voice ID: [id number] Report ID: [id number]
[2020-12-06 00:39] VITALS: BMI 41.7
[2020-12-06 04:33] LABS: Absolute Lymphocytes (CBC) 1.5 K/uL (0.7-4.9); Basophils % 0.3 % (0-1.3); Hematocrit 34.7 % (39.6-49.0); Lymphocytes % 16.7 % (15.3-44.8); RBC Red Blood Cell Count 3.59 M/uL (4.33-5.43)
[2020-12-06 05:12] LABS: Albumin 3.2 g/dL (3.4-5.0); Bilirubin Direct 0.6 mg/dL (0-0.2); Bilirubin Total 2.1 mg/dL (0.2-1.0); C-Reactive Protein 24.7 mg/L (<3.00); Phosphorus 2.5 mg/dL (2.5-4.9); Potassium 4.7 mmol/L (3.5-5.1); Protein, Total 7.1 g/dL (6.4-8.2)
[2020-12-06] MEDS: INSULIN -REGULAR HUMAN 50 UNIT/0.5 ML ML SQ SCH ×4 (07:30→20:21)
[2020-12-06] MEDS ORDERED: Meropenem 500 MG/100 ML BAG ONE (08:02)
[2020-12-06] MEDS: NA CHLORIDE 0.9% 1,000 ML IV SCH (11:56)
--- NOTE | 2020-12-06 11:58 | PN ---
Date of Progress Note: 12/06/2020 Subjective: The patient was admitted with hyperkalemia, acute kidney injury. The patient undergone PermCath placement and started on dialysis urgently because of potassium of 7.4. This is his second session. Physical Examination: Vital Signs: Blood pressure 115/50, pulse of 87, afebrile. The patient had good urine output of 4 L, negative of 3500. Chest: Clear to auscultation. Heart: S1, S2. Regular. Abdomen: Soft, nontender. Extremity: No edema. Neuro: Alert, confused. Laboratory Data: WBC 8.8, H and H 11.4/34.7, platelet 138. Sodium 142, potassium 4.7, bicarb 31, BUN 28, creatinine 3, calcium 8.3, phosphorus 2.5. PTH of 257. TSH 0.3. CK 583. Assessment And Plan: 1. Acute kidney injury, multifactorial, secondary to prerenal, superimposed with NANI inhibitor, complicated with hyperkalemia, nonoliguric. We are going to continue the dialysis of today, then we will hold. We will see the improvement for the patient. I am going to start the patient on normal saline and we will follow up as the patient is polyuric. 2. Hypertension, controlled, optimal. Continue current medication. 3. Hyperkalemia secondary to renal failure, superimposed with NANI inhibitor and constipation, status post treatment, recovered, resolved. 4. Secondary hyperparathyroidism. I am going to start the patient on calcitriol. 5. Urinary tract infection secondary to Escherichia coli, multidrug resistant. The patient is already on meropenem, we will continue. Time spent discussing with the patient, examining the patient, [id number] withthe patient, placing orders, discussing the case with our rock climbing team member including nursing, discussing the case with the other subspecialty including Cardiology and hospitalist 35 minutes. SANDRA Voice ID: [id number] Report ID: [id number] BRIDGETT
[2020-12-06] MEDS ORDERED: NA CHLORIDE 0.9% 1,000 ML ONE (12:15)
[2020-12-06] MEDS: Meropenem 500 MG in NA CHLORIDE 0.9% 100 ML IV SCH (12:33)
[2020-12-06] MEDS: CALCITROL 0.25 MCG CAP PO SCH (14:25)
--- NOTE | 2020-12-06 17:40 | P.PN ---
Subjective Date of Service: 12/06/20 Chief Complaint: Acute renal failure, lethargic Patient is awake, occasionally emotional and crying. He remain on low-dose Levophed to maintain MAP greater than 65. Sinus tachycardia. Patient seen undergoing hemodialysis this morning. Physical Examination - Vital Signs Temperature: 98.4 F Blood Pressure: 108/69 Pulse: 94 Respirations: 22 Pulse Ox (%): 95 - Physical Exam General: In no apparent distress, Other (Awake,) HEENT: Mucous membr. moist/pink Neck: Supple, JVD not distended Respiratory: Clear to auscultation bilaterally, Normal air movement Cardiovascular: Normal S1 S2, Other (Tachycardia), Edema (Bilateral lower extremities.) Gastrointestinal: Normal bowel sounds, Soft and benign, Non-distended, No tenderness Musculoskeletal: No swelling, No erythema Integumentary: No rashes Neurological: Other (Left-sided weakness-chronic) Assessment And Plan Physician Review Additional Text: Problem List Acute Encephalopathy DIO, without CKD severe sepsis secondary to urinary tract infection Septic shock Hyperkalemia DM 2, insulin-dependent Chronic combined CHF AFib Hypertension Anemia, likely secondary chronic kidney disease acute metabolic encephalopathy - likely due to sepsis /UTI vs uremia pt with hypotension requiring levophed. Weaned off Levophed drip as tolerated. Urine culture is growing ESBL E. coli. Continue merrem. CT abdomen/pelvis: No obstructive uropathy dialysis cath placed emergently 12/04, and undergoing dialysis. Nephrology following. Further hemodialysis per nephrology. Concern for possible stroke, patient has had 3 in past, CT negative. Consider MRI if has new focal findings. continue home meds as appropriate pt's mental baseline reported to be s AAOx3. Blood cultures: No growth to date. Code: DNR Dispo: contine ICU level of care.
[2020-12-07] MEDS: NA CHLORIDE 0.9% 1,000 ML IV SCH (04:57)
[2020-12-07 05:15] LABS: Absolute Lymphocytes (CBC) 1.1 K/uL (0.7-4.9); Basophils % 0.5 % (0-1.3); Hematocrit 32.3 % (39.6-49.0); Lymphocytes % 17.1 % (15.3-44.8); MPV 8.5 fL (7.6-11.3); RBC Red Blood Cell Count 3.38 M/uL (4.33-5.43)
[2020-12-07] MEDS ORDERED: NA CHLORIDE 0.9% 1,000 ML ONE (05:16)
[2020-12-07 05:31] LABS: Albumin 2.9 g/dL (3.4-5.0); Phosphorus 2.6 mg/dL (2.5-4.9)
[2020-12-07] MEDS: Meropenem 500 MG in NA CHLORIDE 0.9% 100 ML IV SCH (09:00)
[2020-12-07] MEDS: INSULIN -REGULAR HUMAN 50 UNIT/0.5 ML ML SQ SCH ×3 (11:30→21:00)
--- NOTE | 2020-12-07 15:00 | PN ---
Date of Progress Note: 12/07/2020 Subjective: The patient was admitted with acute kidney injury secondary to NANI inhibitor, over diuresis. Complicated with hyperkalemia required dialysis. The patient is nonoliguric. Had dialysis yesterday. Physical Examination: Vital Signs: Blood pressure 114/95, pulse of 114, afebrile. The patient had urine output of 4300, negative of 37. Chest: Clear to auscultation. Heart: S1, S2. Regular. Abdomen: Morbidly obese. Could not appreciate any organomegaly. Extremities: Plus edema. Neuro: Alert. Confused. No focality. Laboratory Data: H and H 10.8/32.3. Sodium 141, potassium 4, bicarb 29, BUN 17, creatinine 1.8 and this is after dialysis yesterday, calcium 8, phosphorus 2.6, albumin 2.9. Current Medications: The patient on include; 1. Heparin. 2. Meropenem. 3. IV fluid. 4. Calcitriol. Assessment And Plan: 1. Acute kidney injury, multifactorial, secondary to NANI inhibitor/over diuresis, complicated with hyperkalemia, on the recovery, nonoliguric. I am going to hold on the dialysis for now. I am going to discontinue IV fluid and we will monitor the patient closely. 2. Hypertension, controlled, optimal. Continue current treatment. Keep holding NANI inhibitor and Lasix for the time being. 3. Urinary tract infection secondary to Escherichia coli. Continue meropenem. Follow up with Primary. 4. Diabetes as by primary. 5. Cerebrovascular accident as by primary. Time spent discussing with the patient, examining the patient, [id number] withthe patient, placing orders, discussing the case with our steam tender including nursing, discussing the case with the other subspecialty including Cardiology and hospitalist 35 minutes. SANDRA Voice ID: [id number] Report ID: [id number] BRIDGETT
[2020-12-07 17:50] LABS: HIV AG/AB 4TH GEN Non-reactive (Non-reactive)
--- NOTE | 2020-12-07 17:59 | P.PN ---
Subjective Date of Service: 12/07/20 Chief Complaint: Acute renal failure, lethargic Patient is awake. He states he feels better today. He is tolerating diet. Vasopressor weaned off and blood pressure is stable. No fever. Physical Examination - Vital Signs Temperature: 98 F Blood Pressure: 120/54 Pulse: 94 Respirations: 24 Pulse Ox (%): 92 - Physical Exam General: Alert, In no apparent distress HEENT: Mucous membr. moist/pink Neck: JVD not distended Respiratory: Clear to auscultation bilaterally, Normal air movement Cardiovascular: Regular rate/rhythm, Normal S1 S2, Edema (1+ bilateral lower extremity edema) Gastrointestinal: Normal bowel sounds, Soft and benign, Non-distended, No tenderness Musculoskeletal: No swelling, No tenderness Integumentary: Other (Bilateral lower extremity xerosis.) Neurological: Other (Left-sided weakness-chronic) Assessment And Plan Physician Review Additional Text: Problem List Acute Encephalopathy DIO, without CKD severe sepsis secondary to urinary tract infection Septic shock Hyperkalemia DM 2, insulin-dependent Chronic combined CHF AFib Hypertension Anemia, likely secondary chronic kidney disease acute metabolic encephalopathy - likely due to sepsis /UTI vs uremia. Encephalopathy significantly improved. Hypotension has resolved. Urine culture: ESBL E. coli. Continue merrem. CT abdomen/pelvis: No obstructive uropathy dialysis cath placed emergently 12/04, and patient undergoing dialysis. Nephrology following. Further hemodialysis per nephrology. Concern for possible stroke, patient has had 3 in past, CT negative. continue home meds. Blood cultures: No growth to date. Code: DNR Dispo: Downgrade to telemetry.
[2020-12-07 19:13] LABS: Hepatitis C Virus RNA (PCR)log <1.18 log IU/mL
[2020-12-08 05:13] LABS: Absolute Lymphocytes (CBC) 1.2 K/uL (0.7-4.9); Basophils % 0.6 % (0-1.3); Hematocrit 34.5 % (39.6-49.0); Lymphocytes % 19.1 % (15.3-44.8); MPV 8.7 fL (7.6-11.3); RBC Red Blood Cell Count 3.58 M/uL (4.33-5.43)
[2020-12-08 05:26] LABS: Albumin 2.9 g/dL (3.4-5.0); Phosphorus 2.4 mg/dL (2.5-4.9); Potassium 3.7 mmol/L (3.5-5.1)
[2020-12-08] MEDS: INSULIN -REGULAR HUMAN 50 UNIT/0.5 ML ML SQ SCH ×5 (07:30→20:30)
[2020-12-08] MEDS: Meropenem 500 MG in NA CHLORIDE 0.9% 100 ML IV SCH (09:27)
[2020-12-08] MEDS ORDERED: POTASSIUM CL SA 10 MEQ TAB PO ONE (09:43)
[2020-12-08] MEDS: CALCITROL 0.25 MCG CAP PO SCH (12:24)
--- NOTE | 2020-12-08 17:53 | P.PN ---
Subjective Date of Service: 12/08/20 Chief Complaint: Acute renal failure, lethargic Patient currently has no complain. He states he feels better. He is eating well. Blood pressure is stable. Physical Examination - Vital Signs Temperature: 98.5 F Blood Pressure: 148/72 Pulse: 102 Respirations: 20 Pulse Ox (%): 95 - Physical Exam General: Alert, In no apparent distress, Other (Awake) Neck: JVD not distended Respiratory: Clear to auscultation bilaterally, Normal air movement Cardiovascular: Regular rate/rhythm, Normal S1 S2, Edema (Bilateral lower extremities) Gastrointestinal: Normal bowel sounds, Soft and benign, Non-distended, No tenderness Integumentary: Other (Bilateral lower extremity xerosis) Neurological: Other (Chronic left-sided weakness) Assessment And Plan Physician Review Additional Text: Problem List Acute Encephalopathy DIO, without CKD severe sepsis secondary to urinary tract infection Septic shock Hyperkalemia DM 2, insulin-dependent Chronic combined CHF AFib Hypertension Anemia, likely secondary chronic kidney disease acute metabolic encephalopathy - likely due to sepsis /UTI vs uremia. Encephalopathy resolved. Hypotension has resolved. Urine culture: ESBL E. coli. Continue merrem. Infectious disease consult. CT abdomen/pelvis: No obstructive uropathy dialysis cath placed emergently 12/04, and patient underwent sessions of dialysis. Dialysis is currently on hold per nephrology. Concern for possible stroke, patient has had 3 in past, CT negative. continue home meds. Blood cultures: No growth to date. Anticipating 2 weeks of IV meropenem in SNF. Code: DNR
--- NOTE | 2020-12-08 18:50 | PN ---
Date of Progress Note: 12/08/2020 Subjective: The patient was admitted with acute kidney injury secondary to lisinopril, over diuresis with Lasix. The patient had severe elevation in potassium at 7.4. The patient required urgent dialysis. The patient received 2 sessions of dialysis, started having good urine output. Physical Examination: Vital Signs: Blood pressure 148/67, pulse of 81, afebrile. Chest: Clear to auscultation. Heart: S1, S2. Regular. Abdomen: Morbidly obese. Could not appreciate any organomegaly. Extremities: Plus edema. Neuro: Alert. Left hemiparesis. Laboratory Data: H and H 11.1/34.5. Sodium 141, potassium 3.7, bicarb 28, BUN 15, creatinine down to 1.3, GFR of 63, calcium 8.4, phosphorus 2.4, albumin 2.9. Corrected calcium is 9.2. Current Medications: The patient on include; 1. Meropenem. 2. KCl. 3. Calcitriol. Assessment And Plan: 1. Acute kidney injury secondary to prerenal, superimposed with NANI inhibitor and Lasix, recovered, nonoliguric, normal volume. Last dialysis was on the 4th. I am going to be holding dialysis. We will follow up chemistry tomorrow. If kidney function continued to be normalized, I am going to discontinue the hemodialysis catheter. Keep holding NANI inhibitor and Lasix for the time being. 2. Hypertension, controlled, optimal. Keep holding Lasix and lisinopril. 3. Hyperkalemia, resolved. 4. Hypokalemia. We will supplement. 5. Urinary tract infection secondary to Escherichia coli. Continue meropenem. The patient upon discharge can be discharged on Macrobid if needed as outpatient or Augmentin. 6. Cerebrovascular accident. Continue supportive treatment. Time spent discussing with the patient, examining the patient, [id number] withthe patient, placing orders, discussing the case with our steam heating installer including nursing, discussing the case with the other subspecialty including Cardiology and hospitalist 35 minutes. SANDRA Voice ID: [id number] Report ID: [id number] BRIDGETT
[2020-12-08 20:24] VITALS: O2SAT 93
[2020-12-09 04:25] LABS: HBsAG Nonreactive (Nonreactive)
[2020-12-09 05:52] LABS: Phosphorus 2.4 mg/dL (2.5-4.9); Potassium 3.8 mmol/L (3.5-5.1)
[2020-12-09 06:34] LABS: Albumin, (SPE) 3.4 g/dL (3.8-4.8); Alpha-1-Globulins 0.3 g/dL (0.2-0.3); Alpha-2-Globulins 0.7 g/dL (0.5-0.9); Gamma Globulins 1.6 g/dL (0.8-1.7); INTERPRETATION REPORT
[2020-12-09] MEDS: INSULIN -REGULAR HUMAN 50 UNIT/0.5 ML ML SQ SCH ×3 (07:30→16:30)
--- NOTE | 2020-12-09 08:43 | P.PN ---
Subjective Date of Service: 12/09/20 Chief Complaint: Acute renal failure, lethargic Subjective: No new changes Physical Examination - Vital Signs Temperature: 99 F Blood Pressure: 130/62 Pulse: 86 Respirations: 16 Pulse Ox (%): 90 - Physical Exam General: In no apparent distress HEENT: Atraumatic, Normocephalic Neck: Supple Respiratory: Normal air movement Cardiovascular: No rubs, No murmurs Gastrointestinal: Soft and benign - Studies Microbiology Data (last 24 hrs): 12/04/20 06:10 Blood - Blood Aerobic Blood Culture - Final No growth in 5 days. 12/04/20 06:10 Blood - Blood Anaerobic Blood Culture - Final No growth in 5 days. Assessment And Plan - Plan # DIO 2/2 prerenal state + ACEI + lasix Recovered Last HD received on 12/06 d/c R subclavian marsha catheter Hold ACEI, diuretics Plan to dc rico in 1-2d Monitor I/O, renal panel # Septic shock 2/2 ESBL e coli UTI Shock resolved For 1 more wk of IV merrem per ID recs # Anemia Monitor H/H # HypoPO4 Monitor/replete prn # CVA Supportive care OOB w/ PT/OT # Dispo Dc to SNF
[2020-12-09] MEDS: Meropenem 500 MG in NA CHLORIDE 0.9% 100 ML IV SCH (09:10)
--- NOTE | 2020-12-09 10:31 | P.PN ---
Subjective Date of Service: 12/09/20 Chief Complaint: Acute renal failure, lethargic Patient currently has no complain. He states he feels better. He is eating well. Blood pressure is stable. Physical Examination - Vital Signs Temperature: 99 F Blood Pressure: 130/62 Pulse: 86 Respirations: 16 Pulse Ox (%): 90 - Physical Exam General: Alert, In no apparent distress HEENT: Mucous membr. moist/pink Neck: JVD not distended Respiratory: Clear to auscultation bilaterally, Normal air movement Cardiovascular: No edema, Regular rate/rhythm, Normal S1 S2 Gastrointestinal: Normal bowel sounds, Soft and benign, Non-distended, No tenderness Integumentary: Other (Bilateral lower extremity xerosis) Neurological: Other (Chronic left-sided weakness) - Studies Microbiology Data (last 24 hrs): 12/04/20 09:46 Blood - Blood Aerobic Blood Culture - Final No growth in 5 days. 12/04/20 09:46 Blood - Blood Anaerobic Blood Culture - Final No growth in 5 days. 12/04/20 06:10 Blood - Blood Aerobic Blood Culture - Final No growth in 5 days. 12/04/20 06:10 Blood - Blood Anaerobic Blood Culture - Final No growth in 5 days. Assessment And Plan Physician Review Additional Text: Problem List Acute Encephalopathy DIO, without CKD severe sepsis secondary to urinary tract infection Septic shock Hyperkalemia DM 2, insulin-dependent Chronic combined CHF AFib Hypertension Anemia, likely secondary chronic kidney disease acute metabolic encephalopathy - likely due to sepsis /UTI vs uremia. Ence phalopathy resolved. Hypotension has resolved. Urine culture: ESBL E. coli. Continue merrem. Infectious disease consulted to guide outpatient IV antibiotics. CT abdomen/pelvis: No obstructive uropathy dialysis cath placed emergently 12/04, and patient underwent sessions of dialysis. Dialysis is currently on hold per nephrology. Acute renal failure resolved. Concern for possible stroke, patient has had 3 in past, CT negative. continue home meds. Blood cultures: No growth to date. Anticipating 2 weeks of IV meropenem in SNF. Code: DNR
--- NOTE | 2020-12-09 10:51 | P.CNS ---
Date of Consult: 12/09/20 Chief Complaint: Acute renal failure, lethargic History of Present Illness: Patient is a 70-year-old male with a past medical history advanced in [place] dependent diabetes type 2, hypertension, hyperlipidemia, previous CVA with left upper extremity weakness, dysphagia, congestive heart failure, a to fibrillation who presented to the ED from his correction due to altered mental status last both RG. Would the ED revealed the patient to be in acute renal failure with hyperkalemia with a potassium 6.3, Cr or 7.5. Patient does not have any history of renal disease. UA was completed and culture grew an ESBL E coli. Patient: patient will need 1 week course of IV meropenem. Patient denies nausea, vomiting, diarrhea cultures breath, chest pain. Allergies No Known Allergies Allergy (Unverified 12/03/17 11:37) Home Medications: Apixaban [Eliquis *] 5 mg PO BID 12/03/17 Atorvastatin Calcium [Lipitor*] 40 mg PO DAILY 12/03/17 Docusate [Colace Cap*] 100 mg PO DAILY 12/03/17 Furosemide [Lasix*] 40 mg PO BID 12/03/17 Gabapentin [Neurontin*] 100 mg PO TID 12/03/17 Insulin Glargine,Hum.rec.anlog [Lantus] 10 units SQ DAILY 12/03/17 Lisinopril [Zestril] 20 mg PO DAILY 12/03/17 Metformin HCl [Glucophage*] 850 mg PO BID 12/03/17 Metoprolol Tartrate [Lopressor*] 50 mg PO BID 12/03/17 Multivitamin [Daily Etta] 1 tab PO DAILY 12/03/17 Potassium Oral Tab [Klor-Con 10 mEq Tab*] 20 meq PO DAILY #30 tab 12/05/17 Baclofen 10 mg PO TID 12/04/20 Insulin Glargine Human [Lantus*] 10 units SQ ACHS 12/04/20 Insulin Glargine Human [Lantus*] 14 units SQ BID 12/04/20 Insulin Glargine Human [Lantus*] 14 units SQ BID 12/04/20 Insulin Lispro [Humalog*] 5 units SQ ACHS 12/04/20 Linagliptin [Tradjenta] 5 mg PO DAILY 12/04/20 Trazodone [Desyrel] 100 mg PO BEDTIME 12/04/20 - Past Medical/Surgical History Diabetic: Yes -: CVA X3 -: HTN -: hyperlipidemia -: CHF -: GERD -: dysphagia -: left sided paralysis. -: DM2 -: insomnia -: cognitive communication deficit -: muscle weakness -: fior - Family History Mother Medical History: Hypertension - Social History Smoking Status: Unknown if ever smoked Alcohol use: No CD- Drugs: No Caffeine use: No Place of Residence: [facility] Review of Systems 10-point ROS is otherwise unremarkable Physical Examination Temp Pulse Resp BP Pulse Ox 99 F 86 16 130/62 90 L 12/09/20 10:31 12/09/20 10:31 12/09/20 10:31 12/09/20 10:31 12/09/20 10:31 General: Alert, In no apparent distress, Obese HEENT: Atraumatic, Normocephalic Neck: Supple, 2+ carotid pulse no bruit Respiratory: Clear to auscultation bilaterally Cardiovascular: Normal pulses, Regular rate/rhythm, Other (Lower extremity edema) Musculoskeletal: No clubbing, No swelling Urinary: Rausch catheter Temp Pulse Resp BP Pulse Ox 99 F 86 16 130/62 90 L 12/09/20 10:31 12/09/20 10:31 12/09/20 10:31 12/09/20 10:31 12/09/20 10:31 Active Medications Calcitriol (Calcitrol 0.25 Mcg Cap) 0.25 mcg PO Q48H [facility] Last Admin: 12/08/20 12:24 Dose: 0.25 mcg Documented by: Dextrose (D50w 25 Gm/50 Ml Vial) 12.5 gm IV PRN PRN; Protocol PRN Reason: HYPOGLYCEMIA Glucagon (Glucagon 1 Mg/Vial) 1 mg IM 1X PRN; Protocol PRN Reason: HYPOGLYCEMIA Heparin Sodium (Porcine) (Heparin 1,000 Unit/Ml Vial) 4,000 unit IV EVERY HD PRN PRN Reason: AFTER EACH Last Admin: 12/06/20 12:26 Dose: 4,000 unit Documented by: Meropenem 500 mg/ Sodium (Chloride) 100 mls @ 100 mls/hr IV DAILY [facility] Last Admin: 12/09/20 09:10 Dose: 100 mls Documented by: Norepinephrine Bitartrate 8 mg (/ Dextrose) 508 mls @ 0 mls/hr IV PRN PRN; Protocol PRN Reason: HEMODYNAMIC PARAMETERS Insulin Human Regular (Insulin -Regular Human 50 Unit/0.5 Ml Ml) 0 unit SQ ACHS BRIGHT; Protocol Last Admin: 12/09/20 07:30 Dose: Not Given Documented by: Sodium Chloride (Flush Normal Saline 10 Ml) 10 ml IV BID [facility] Last Admin: 12/09/20 09:10 Dose: 10 ml Documented by: Conclusions/Impression: Antibiotics: Meropenem Start: 12/04 Stopped: 12/11 Assessment: -UTI growing ESBL E coli -initial presentation of DIO -diabetes type 2 insulin-dependent -CHF -anemia Plan: -continue IV meropenem for a total antibiotic duration of 1 week. Recommend supplementation with probiotic. -medical management per primary team -continue monitor CBC and BMP -continue to monitor for signs of Plan of care discussed with Dr. Penaloza Thank you for consultation
--- NOTE | 2020-12-09 12:20 | P.DS ---
Admission Date: 12/04/20 Discharge Date: 12/09/20 Disposition: TRANSFER TO [facility] Discharge Condition: FAIR Reason for Admission: Acute renal failure, lethargic Consultations: Nephrology-Dr. Naranjo Infectious disease-Dr. Penaloza. General surgery-Dr. Driver - Problems (1) Acute renal failure Current Visit: Yes Status: Acute (2) UTI due to extended-spectrum beta lactamase (ESBL) producing Escherichia coli Current Visit: Yes Status: Acute (3) Altered mental status Onset Date: 12/04/17 Current Visit: No Status: Acute (4) Hyperkalemia Onset Date: 12/04/17 Current Visit: No Status: Acute (5) Septic shock Current Visit: Yes Status: Acute Brief History of Present Illness: 70-year-old gentleman with a history of insulin-dependent diabetes, hypertension, hyperlipidemia, prior CVAs with the left upper extremity weakness, dysphagia, atrial fibrillation was [facility] due to altered mental status and lethargy. Patient could not provide any history. Workup in the emergency department revealed acute renal failure with hyperkalemia, potassium level of 6.3, creatinine 7.5. His last known creatinine was 1.1 patient has no history of kidney disease. Chest x-ray showed mild to moderate CHF pattern. UA suggested the presence of UTI. Patient was hospitalized for further management. Hospital Course: Patient admitted to the medical floor. He was given medical treatment for hyperkalemia but this was unsuccessful. Potassium level increased to 7. Nephrology was contacted who recommended emergent hemodialysis. Dialysis catheter was placed under general surgery. Patient became hypotensive so he was started on Levophed drip and underwent hemodialysis. He was diagnosis septic shock secondary to UTI. He was started on IV meropenem. Urine culture grew ESBL E. coli. Patient underwent multiple sessions of hemodialysis. The acute renal failure resolved. Hemodialysis was discontinued and dialysis catheter rem crystal. His altered mental status also improved to baseline with treatment. His blood pressure improved to normal and stabilized. His home antihypertensives were held because patient was normotensive the rest of the hospital stay. Patient has clinically improved to baseline. Infectious disease recommended 1 more week of IV meropenem. [facility] is [facility] with a prescription for the meropenem. Vital Signs/Physical Exam: Temp Pulse Resp BP Pulse Ox 99 F 86 16 130/62 90 L 12/09/20 10:31 12/09/20 10:31 12/09/20 10:31 12/09/20 10:31 12/09/20 10:31 General: Alert, In no apparent distress HEENT: Mucous membr. moist/pink Neck: JVD not distended Respiratory: Clear to auscultation bilaterally, Normal air movement Cardiovascular: Regular rate/rhythm, Normal S1 S2, Edema (Mild bilateral lower extremity edema) Gastrointestinal: Normal bowel sounds, Soft and benign, Non-distended, No tenderness Integumentary: Other (Bilateral lower extremity xerosis.) Neurological: Other (Chronic left-sided weakness.) Laboratory Data at Discharge: WBC 6.50 K/uL (4.3-10.9) 12/08/20 04:45 Hgb 11.1 g/dL (13.6-17.9) L 12/08/20 04:45 Hct 34.5 % (39.6-49.0) L 12/08/20 04:45 Plt Count 129 K/uL (152-406) L 12/08/20 04:45 PT 13.5 SECONDS (9.5-12.5) H 12/04/20 06:10 INR 1.17 12/04/20 06:10 APTT 27.2 SECONDS (24.3-36.9) 12/04/20 06:10 Sodium 143 mmol/L (136-145) 12/09/20 05:14 Potassium 3.8 mmol/L (3.5-5.1) 12/09/20 05:14 BUN 11 mg/dL (7-18) 12/09/20 05:14 Creatinine 1.29 mg/dL (0.55-1.3) 12/09/20 05:14 Glucose 108 mg/dL (74-106) H 12/09/20 05:14 Uric Acid 5.6 mg/dL (3.5-7.2) 12/05/20 06:47 Phosphorus 2.4 mg/dL (2.5-4.9) L 12/09/20 05:14 Magnesium 2.1 mg/dL (1.8-2.4) 12/04/20 20:16 Total Bilirubin 2.1 mg/dL (0.2-1.0) H 12/06/20 04:00 AST 27 U/L (15-37) 12/06/20 04:00 ALT 24 U/L (12-78) 12/06/20 04:00 Alkaline Phosphatase 69 U/L (45-117) 12/06/20 04:00 Amylase 95 U/L (25-115) 12/04/20 06:10 Lipase 358 U/L (73-393) 12/05/20 06:47 Home Medications: Apixaban [Eliquis *] 5 mg PO BID 12/03/17 Atorvastatin Calcium [Lipitor*] 40 mg PO DAILY 12/03/17 Docusate [Colace Cap*] 100 mg PO DAILY 12/03/17 Gabapentin [Neurontin*] 100 mg PO TID 12/03/17 Insulin Glargine,Hum.rec.anlog [Lantus] 10 units SQ DAILY 12/03/17 Metformin HCl [Glucophage*] 850 mg PO BID 12/03/17 Multivitamin [Daily Etta] 1 tab PO DAILY 12/03/17 Baclofen 10 mg PO TID 12/04/20 Insulin Lispro [Humalog*] 5 units SQ ACHS 12/04/20 Linagliptin [Tradjenta] 5 mg PO DAILY 12/04/20 Trazodone [Desyrel*] 100 mg PO BEDTIME 12/04/20 Calcitrol [Rocaltrol*] 0.25 mcg PO Q48H #30 cap 12/09/20 Meropenem [Merrem 500 MG/100 ML NS IVPB] 500 mg IV Q8H #21 bag 12/09/20 New Medications: Meropenem [Merrem 500 MG/100 ML NS IVPB] 500 mg IV Q8H #21 bag Calcitrol [Rocaltrol*] 0.25 mcg PO Q48H #30 cap Physician Discharge Instructions: PROBLEM: Altered mental status, Acute Renal Failure GOAL: Clear understanding of disease process INSTRUCTIONS: Diet: diabetic Activity: Fall precautions If you have any questions regarding your stay call [phone] If your symptoms worsen call 911 or go to the ED. COMMUNITY SERVICES Services Needed: Custodial Name of Company: current - [facility] Date or Referral: [phone] Diet: ADA Activity: Fall precautions Followup: Unknown,U [Primary Care Provider] - Time spent managing pt's care (in minutes): 36
[2020-12-09 15:03] LABS: Vitamin D 1,25-Dihydroxy Total 22 pg/mL (18-72); Vitamin D,1,25-OH2, D2 <8 pg/mL
[2020-12-09 20:44] VITALS: BP 130/62; TEMP 99
== END 2020-12-09 20:40 | DRG 871 ==
LOC: ER 05:47 → ERHOLD 10:38 → 2ND 12-07 15:57
PROVIDERS: ADMIT Hospitalist; ATTEND Internal Medicine
PROC: 5A09457 Assistance with Respiratory Ventilation, 24-96 Consecutive Hours, Continuous Positive Airway Pressure (ICD-10-PCS; 2020-12-04)
PROC: 02HV33Z Insertion of Infusion Device into Superior Vena Cava, Percutaneous Approach (ICD-10-PCS; principal; 2020-12-05)
PROC: 5A1D70Z Performance of Urinary Filtration, Intermittent, Less than 6 Hours Per Day (ICD-10-PCS; 2020-12-05)
DX: A41.51 Sepsis due to Escherichia coli [E. coli] (principal); G93.41 Metabolic encephalopathy; I50.43 Acute on chronic combined systolic (congestive) and diastolic (congestive) heart failure; J96.01 Acute respiratory failure with hypoxia; N17.9 Acute kidney failure, unspecified; I69.354 Hemiplegia and hemiparesis following cerebral infarction affecting left non-dominant side; I13.0 Hypertensive heart and chronic kidney disease with heart failure and stage 1 through stage 4 chronic kidney disease, or unspecified chronic kidney disease; N39.0 Urinary tract infection, site not specified; N18.4 Chronic kidney disease, stage 4 (severe); E87.2 Acidosis; N25.81 Secondary hyperparathyroidism of renal origin; Z16.12 Extended spectrum beta lactamase (ESBL) resistance; R65.20 Severe sepsis without septic shock; E11.22 Type 2 diabetes mellitus with diabetic chronic kidney disease; E11.40 Type 2 diabetes mellitus with diabetic neuropathy, unspecified; E78.5 Hyperlipidemia, unspecified; K21.9 Gastro-esophageal reflux disease without esophagitis; I25.10 Atherosclerotic heart disease of native coronary artery without angina pectoris; E87.5 Hyperkalemia; I48.91 Unspecified atrial fibrillation; K59.00 Constipation, unspecified; R13.10 Dysphagia, unspecified; Z66 Do not resuscitate; Z79.01 Long term (current) use of anticoagulants; Z79.4 Long term (current) use of insulin; Z79.899 Other long term (current) drug therapy; Z90.49 Acquired absence of other specified parts of digestive tract; Z20.822 Contact with and (suspected) exposure to COVID-19
CPT/HCPCS: 36415; 70450; 71045; 74176; 76000; 76770; 80048; 80069; 80076; 80307; 81003; 81015; 82140; 82150; 82550; 82553; 82570; 82607; 82652; 82728; 82746; 82805; 82947; 83520; 83540; 83605; 83690; 83735; 83970; 84145; 84156; 84165; 84300; 84439; 84443; 84466; 84484; 84550; 85025; 85044; 85610; 85730; 86021; 86038; 86140; 86160; 86225; 86317; 86430; 86704; 86706; 87040; 87077; 87086; 87088; 87186; 87340; 87389; 87522; 90935; 92610; 93005; 93970; 94640; 94660; 96374; 96375; 99285; J0610; J0690; J1100; J1644; J1940; J2185; J2250; J2405; J3010; J7030; J7060; U0003

== ENCOUNTER 2021-04-02 08:30 | Emergency (ER) | payer OTHER ==
[2021-04-02 09:02] LABS: Protime INR 1.5
[2021-04-02 09:04] LABS: Basophils % 0.8 % (0-1.3); Hematocrit 39.4 % (39.6-49.0); MPV 8.2 fL (7.6-11.3); RBC Red Blood Cell Count 4.27 M/uL (4.33-5.43)
--- NOTE | 2021-04-02 09:13 | RAD REPORT ---
EXAM DESCRIPTION: Rudi Single View04/02/2021 8:50 am CLINICAL HISTORY: Congestion COMPARISON: December 2020 FINDINGS: Left upper lobe consolidation. Right lung appears clear of acute infiltrate. Heart is mildly to moderately enlarged IMPRESSION: Left upper lobe consolidation probably pneumonia
[2021-04-02] MEDS ORDERED: NITROGLYCERIN/D5W 50 MG/250 ML BTL IV ONE (09:15)
[2021-04-02 09:32] LABS: Albumin 3.3 g/dL (3.4-5.0); Bilirubin Direct 0.7 mg/dL (0-0.2); Bilirubin Total 1.4 mg/dL (0.2-1.0); Magnesium 1.9 mg/dL (1.8-2.4); Potassium 4.3 mmol/L (3.5-5.1); Protein, Total 8.2 g/dL (6.4-8.2); Troponin (Emerg Dept Use Only) 0.17 ng/mL (0.0-0.045)
[2021-04-02] MEDS ORDERED: VANCOMYCIN/NS 1 gm 1 GM/250 ML BAG IVPB ONE (09:45)
[2021-04-02 09:50] LABS: Arterial Blood Carboxyhemoglob 1.9 % (0-1.5); Blood Gas Oxyhemoglobin 81.1 % (94-97); Blood O2 Saturation 83.3 % (92-98.5)
[2021-04-02] MEDS ORDERED: CEFEPIME/SWI 1gm 10 ML ONE (09:56)
[2021-04-02] MEDS ORDERED: FUROSEMIDE 100 MG/10 ML VIAL IV ONE (09:56)
[2021-04-02 10:02] LABS: Urine Blood 2+ (Negative); Urine Glucose Negative (Negative); Urine Protein 2+ (Negative); Urine Specific Gravity >=1.030 (1.005-1.030)
[2021-04-02] MEDS ORDERED: ENOXAPARIN 80 MG/0.8 ML SQ ONE (10:29)
[2021-04-02] MEDS ORDERED: NA CHLORIDE 0.9% 1,000 ML ONE (10:29)
[2021-04-02] MEDS ORDERED: ASPIRIN 81 MG CHEWABLE TABLET ONE (10:29)
[2021-04-02 10:44] LABS: SARS-COV-2 RT PCR POSITIVE (NEGATIVE)
--- NOTE | 2021-04-02 12:47 | EDPHYS ---
Physician Documentation [facility] Name: Sumanth Rodriguez Age: 70 yrs Sex: Male : 1950 Arrival Date: 04/02/2021 Time: 08:30 Bed 3 Private MD: ED Physician Karen Dunn HPI: 04/02 12:38 This 70 yrs old Black Male presents to ER via EMS with complaints of Shortness Of ma2 Breath, Altered Mental Status. 12:38 The patient has shortness of breath at rest. Onset: The symptoms/episode began/occurred ma2 gradually, 1 day(s) ago. Associated signs and symptoms: Pertinent positives: productive cough, diaphoresis, loss of consciousness, Pertinent negatives: dizziness, hemoptysis, loss of consciousness, nausea. Severity of symptoms: At their worst the symptoms were severe in the emergency department the symptoms are unchanged. The patient has experienced similar episodes in the past. Historical: - Allergies: 09: No Known Allergies; sv - PMHx: 09:19 GERD; CVA; Diabetes - NIDDM; DYSPHAGIA; Atrial Fib; constipation; Hypertension; sv Hyperlipidemia; hemiplegia left side; muscle spasms; CHF; - Immunization history:: Adult Immunizations up to date. - Social history:: Patient/guardian denies using alcohol, street drugs, The patient lives in a halfway, Smoking status: Patient denies any tobacco usage or history of. - Family history:: not pertinent. ROS: 12:38 Unable to obtain ROS due to altered mental status. ma2 12:46 Eyes: Negative for injury, pain, redness, and discharge, ENT: Negative for injury, ma2 pain, and discharge. Exam: 12:38 Head/Face: Normocephalic, atraumatic. Eyes: Pupils equal round and reactive to light, ma2 extra-ocular motions intact. Lids and lashes normal. Conjunctiva and sclera are non-icteric and not injected. Cornea within normal limits. Periorbital areas with no swelling, redness, or edema. ENT: Nares patent. No nasal discharge, no septal abnormalities noted. Tympanic membranes are normal and external auditory canals are clear. Oropharynx with no redness, swelling, or masses, exudates, or evidence of obstruction, uvula midline. Mucous membranes moist. Neck: Trachea midline, no thyromegaly or masses palpated, and no cervical lymphadenopathy. Supple, full range of motion without nuchal rigidity, or vertebral point tenderness. No Meningismus. 12:38 Abdomen/GI: Soft, non-tender, with normal bowel sounds. No distension or tympany. No guarding or rebound. No evidence of tenderness throughout. 12:38 Neuro: Awake and alert, GCS 14 d/t confusion he has right sided residual weakness 12:38 Cardiovascular: Rate: tachycardic, Rhythm: regular, Pulses: Edema: 2+ edema to level of left ankle, left foot, left toes, right ankle, right foot and right toes. 12:38 Respiratory: severe repiratory distress is noted, Respirations: labored breathing, Breath sounds: rales, bronchial sounds, that are moderate, are heard diffusely. Vital Signs: 08:37 BP 125 / 76; Pulse 145; Resp 40; Temp 101; Pulse Ox 95% on 60% BiPAP; Pain 0/10; hb 10:00 BP 129 / 85; Pulse 143; Resp 39; Temp 100.9(C); Pulse Ox 92% on 100% BiPAP; sv 10:15 BP 84 / 55; Pulse 144; Resp 31; Pulse Ox 92% on 100% BiPAP; sv 10:30 BP 116 / 98; Pulse 144; Resp 22; Pulse Ox 84% on 100% BiPAP; sv 10:45 BP 111 / 94; Pulse 143; Resp 22; Pulse Ox 88% on 100% BiPAP; sv 11:00 BP 121 / 69; Pulse 139; Resp 22; Pulse Ox 92% on 100% BiPAP; sv 11:15 BP 113 / 89; Pulse 137; Resp 20; Pulse Ox 87% on 100% BiPAP; sv 11:15 BP 113 / 89; Pulse 137; Resp 20; Pulse Ox 87% on 100% BiPAP; sv 11:30 BP 121 / 85; Pulse 137; Resp 22; Pulse Ox 88% on 100% BiPAP; sv 11:45 BP 122 / 71; Pulse 137; Resp 20; Pulse Ox 91% on 100% BiPAP; sv 12:00 BP 117 / 102; Pulse 115; Resp 15; Pulse Ox 91% on 100% BiPAP; hb 12:00 BP 117 / 102; Pulse 114; Resp 22; Temp 100.0(C); Pulse Ox 94% on 100% BiPAP; sv 12:15 BP 95 / 51; Pulse 113; Resp 22; Pulse Ox 92% on 100% BiPAP; sv 12:30 BP 100 / 53; Pulse 111; Resp 24; Temp 99.9(C); Pulse Ox 96% on 100% BiPAP; sv 12:45 BP 91 / 57; Pulse 109; Resp 22; Pulse Ox 97% on 100% BiPAP; sv 13:00 BP 96 / 60; Pulse 108; Resp 22; Pulse Ox 98% on 100% BiPAP; sv 13:15 BP 113 / 66; Pulse 104; Resp 22; Pulse Ox 98% on 100% BiPAP; sv 13:30 BP 91 / 61; Pulse 105; Resp 22; Pulse Ox 95% on 100% BiPAP; sv 13:45 BP 99 / 60; Pulse 104; Resp 22; Pulse Ox 98% on 100% BiPAP; sv 14:00 BP 105 / 66; Pulse 101; Resp 22; Temp 98.6(C); Pulse Ox 99% on 100% BiPAP; sv 14:15 BP 101 / 67; Pulse 102; Resp 22; Pulse Ox 97% on 100% BiPAP; sv 14:30 BP 103 / 60; Pulse 101; Resp 24; Pulse Ox 98% on 100% BiPAP; sv 14:45 BP 105 / 64; Pulse 100; Resp 22; Temp 98.4(C); Pulse Ox 98% on 100% BiPAP; sv 08:37 Chirag-Bagley (FACES) hb MDM: 08:31 Patient medically screened. ma2 12:38 Differential diagnosis: Bronchitis CHF exacerbation, pneumonia, pulmonary edema, ma2 reactive airway disease, Sepsis. Antibiotic administration: Data reviewed: vital signs, nurses notes, EMS record, halfway records, diagnostic data from outside facility, old medical records, lab test result(s). Post IV fluid administration reassessment for Sepsis: Sepsis focused reassessment complete. Focused assessment performed: April 02, 2021 at 12:42 Heart: Regular rate/rhythm. Lungs: Dull breath sounds noted. Rales noted. Capillary refill examination performed. Capillary refill noted to be < 2 seconds. Peripheral pulse evaluation performed. Peripheral pulses noted to be 3+ normal. Skin examination performed. Skin noted to be pink. Current patient vital signs reviewed: Yes. Counseling: I had a detailed discussion with the patient and/or guardian regarding: the historical points, exam findings, and any diagnostic results supporting the discharge/admit diagnosis, the presence of at least one elevated blood pressure reading (>120/80) during this emergency department visit, lab results, radiology results, the need to transfer to another facility. Response to treatment: the patient's symptoms have markedly improved after treatment. ED course: case discussed with dr. zhang, for icu admission he advised that there is no covid + bed, and advise for transfer for higher level of care . ED course: discussed and accepted by dr. Perrin, icu . 04/02 08:34 Order name: Basic Metabolic Panel; Complete Time: 09:49 ma2 04/02 08:34 Order name: CBC with Diff; Complete Time: 09:25 ma2 04/02 08:34 Order name: LFT's; Complete Time: 09:49 ma2 04/02 08:34 Order name: Magnesium; Complete Time: 09:49 ma2 04/02 08:34 Order name: NT PRO-BNP; Complete Time: 09:49 ma2 04/02 08:34 Order name: PT-INR; Complete Time: 09:25 ma2 04/02 08:34 Order name: Troponin (emerg Dept Use Only); Complete Time: 09:49 ma2 04/02 08:34 Order name: Lactate; Complete Time: 09:49 ma2 04/02 08:34 Order name: Strep; Complete Time: 10:30 ma2 04/02 09:49 Order name: ABG Arterial Blood Gas; Complete Time: 10:04 EDKY 04/02 10:02 Order name: Urine Dipstick-Ancillary [facility] 04/02 10:04 Order name: Urine Culture 04/02 08:34 Order name: BIPAP [facility] 04/02 08:34 Order name: XRAY Chest (1 view); Complete Time: 09:25 ma2 04/02 08:34 Order name: EKG; Complete Time: 08:35 mo2 04/02 08:34 Order name: Cardiac monitoring; Complete Time: 09:18 ma2 04/02 08:34 Order name: EKG - Nurse/Tech; Complete Time: 09:18 [facility] 04/02 10:04 Order name: Urine Microscopic Only 04/02 10:44 Order name: COVID-19/FLU A+B; Complete Time: 12:31 EDKY 04/02 08:34 Order name: IV Saline Lock; Complete Time: 09:18 ma2 04/02 08:34 Order name: Labs collected and sent; Complete Time: 09:18 ma2 04/02 08:34 Order name: O2 Per Protocol; Complete Time: 09:18 ma2 04/02 08:34 Order name: O2 Sat Monitoring; Complete Time: 09:18 ma2 04/02 08:34 Order name: Droplet/Contact Precautions; Complete Time: 09:18 ma2 04/02 08:34 Order name: Labs collected and sent; Complete Time: 09:18 ma2 Administered Medications: 08:55 Drug: Nitro Drip - (Nitroglycerin 50 mg, D5W 250 ml) Route: IV; Rate: 5 mcg/min; Site: sv right antecubital; 15:50 Follow up: IV Status: Infusion continued upon transfer sv 09:19 CANCELLED (given by EMSs): Acetaminophen 1000 mg PO once sv 10:00 Drug: Cefepime 1 grams {Note: given IVP per pharmacy protocol.} Route: IVPB; Rate: 200 ss ml/hr; Infused Over: 30 mins; Site: right hand; 10:02 Follow up: Response: No adverse reaction; IV Status: Completed infusion; IV Intake: 10mlsv 10:03 Drug: Lasix (furosemide) 100 mg Route: IVP; Site: right hand; ss 10:30 Follow up: Response: No adverse reaction sv 12:30 Drug: NS 0.9% 1000 ml Route: IV; Rate: 75 ml/hr; Site: right hand; hb 15:50 Follow up: IV Status: Infusion continued upon transfer sv 12:30 Drug: Aspirin Chewable Tablet 324 mg Route: PO; hb 12:43 Follow up: Response: No adverse reaction sv 12:30 Drug: Lovenox (enoxaparin) 80 mg Route: Sub-Q; Site: abdomen; hb 12:43 Follow up: Response: No adverse reaction sv 12:30 Drug: SOLU-Medrol (methylPrednisoLONE) 125 mg Route: IVP; Site: right hand; hb 12:43 Follow up: Response: No adverse reaction sv 12:48 Drug: vancoMYCIN 1 grams Route: IVPB; Infused Over: 2 hrs; Site: right hand; sv 14:50 Follow up: Response: No adverse reaction; IV Status: Completed infusion; IV Intake: sv 250ml Disposition: 12:38 Critical Care:. ma2 Disposition Summary: 04/02/21 12:46 Transfer Ordered Transfer Location: [facility] ma2 Reason: Higher level of care ma2 Condition: Critical ma2 Problem: new ma2 Symptoms: are unchanged ma2 Accepting Physician: ICU intesivist Dr. Elmo Gill(04/02/21 15:56) hb Diagnosis - Other specified viral diseases - COVID -19 ma2 - Hypoxemia ma2 - Subsequent non-ST elevation (NSTEMI) myocardial infarction ma2 - Pneumonia due to other specified infectious organisms ma2 - Streptococcal infection, unspecified site ma2 - Acute cystitis ma2 - Severe sepsis without septic shock ma2 - Tachycardia, unspecified ma2 Forms: - Medication Reconciliation Form ma2 - SBAR form ma2 Critical care time excluding procedures: 12:38 Critical care time: Bedside Care: 30 minutes, Consultation: 10 minutes, Family ma2 Intervention: 5 minutes. Total time: 45 minutes Signatures: Dispatcher [employer] EDMadison Thornton RN RN Yolanda Forrest RN RN Kirstie Read RN RN Karen Dunn MD MD [facility] Philly Wilkins Corrections: (The following items were deleted from the chart) 09:19 08:34 Acetaminophen 1000 mg PO once ordered. ma2 sv 09:19 09:18 Acetaminophen 1000 mg PO once ordered. sv sv 09:48 08:35 Influenza Screen (A \T\ B)+BA.LAB.BRZ ordered. EDMS EDMS 09:48 08:35 CORONAVIRUS+MR.LAB.BRZ ordered. EDMS EDMS 13:28 12:46 ICU intesivist ma2 eb 15:56 13:[address] Elmo Gill eb hb
--- NOTE | 2021-04-02 12:47 | ER ---
Nurse's Notes [facility] Name: Sumanth Rodriguez Age: 70 yrs Sex: Male : 1950 Arrival Date: 04/02/2021 Time: 08:30 Bed 3 Private MD: Diagnosis: Other specified viral diseases-COVID -19;Hypoxemia;Subsequent non-ST elevation (NSTEMI) myocardial infarction;Pneumonia due to other specified infectious organisms;Streptococcal infection, unspecified site;Acute cystitis;Severe sepsis without septic shock;Tachycardia, unspecified Presentation: 04/02 08:37 Chief complaint: EMS states: Found by prison staff in bed, altered, minimally hb responsive, SpO2 60% on RA. Improved to 98% on CPAP 85% FiO2, BP 110/78, HR 145, T101.5. NS 300 mls to 18g RAC, nitro paste, and Tylenol 1G administered DRAFTER (CAD) ELECTRONIC. Coronavirus screen: Client presents with at least one sign or symptom that may indicate coronavirus-19. Ebola Screen: No symptoms or risks identified at this time. Initial Sepsis Screen: Does the patient meet any 2 criteria? Yes Does the patient have a suspected source of infection? No. Patient's initial sepsis screen is negative. Risk Assessment: Do you want to hurt yourself or someone else? Unable to obtain. Onset of symptoms is unknown. 08:37 Method Of Arrival: EMS: [facility] hb 08:37 Acuity: TORY 1 hb 08:37 Care prior to arrival:. Transition of care: patient was received from another setting of care (long-term care facility), [facility]. Triage Assessment: 08:37 General: Appears in no apparent distress. uncomfortable, obese, well developed, sv Behavior is calm, cooperative. Pain: Denies pain. Neuro: Level of Consciousness is awake, alert, confused, Oriented to person, Moves all extremities. Full function. Cardiovascular: Pulses are palpable in right radial artery and left radial artery Rhythm is sinus tachycardia. Respiratory: Reports shortness of breath Airway is patent Respiratory effort is even, unlabored, Respiratory pattern is tachypnea Patient placed on BiPAP: Inspiratory Pressure: 15 Expiratory (EPAP) Pressure: 10 FiO2%: 100 Respiratory Rate: 16 Onset: The symptoms/episode began/occurred this morning, the patient has moderate shortness of breath. GI: Abdomen is obese. Derm: Skin is normal, Skin temperature is hot. Musculoskeletal: Range of motion: intact in all extremities. Historical: - Allergies: 09:19 No Known Allergies; sv - PMHx: 09:19 GERD; CVA; Diabetes - NIDDM; DYSPHAGIA; Atrial Fib; constipation; Hypertension; sv Hyperlipidemia; hemiplegia left side; muscle spasms; CHF; - Immunization history:: Adult Immunizations up to date. - Social history:: Patient/guardian denies using alcohol, street drugs, The patient lives in a prison, Smoking status: Patient denies any tobacco usage or history of. - Family history:: not pertinent. Screenin:12 Abuse screen: Denies threats or abuse. Denies injuries from another. Nutritional sv screening: No deficits noted. Tuberculosis screening: No symptoms or risk factors identified. Fall Risk No fall in past 12 months (0 pts). Secondary diagnosis (15 points) CVA, IV access (20 points). Ambulatory Aid- None/Bed Rest/Nurse Assist (0 pts). Gait- Normal/Bed Rest/Wheelchair (0 pts) Mental Status- Overestimates/Forgets Limitations (15 pts.). Total Mcdaniels Fall Scale indicates High Risk Score (45 or more points). Fall prevention measures have been instituted. Side Rails Up X 2 Placed Close to Nursing Station Frequent Obs/Assessments Occuring. Assessment: 10:03 Reassessment: Patient appears in no apparent distress at this time. Patient and/or sv family updated on plan of care and expected duration. Pain level reassessed. Patient states symptoms have improved. Respiratory: Respiratory effort is even, unlabored, Respiratory pattern is tachypnea. 11:15 Reassessment: Patient appears in no apparent distress at this time. Patient and/or sv family updated on plan of care and expected duration. Pain level reassessed. Pt pulling off BIPAP. BIPAP placed back on. 12:30 Reassessment: Patient appears in no apparent distress at this time. Patient and/or sv family updated on plan of care and expected duration. Pain level reassessed. Pt pulling off BIPAP. BIPAP placed back on. Patient states symptoms have improved. 13:11 Reassessment: Patient appears in no apparent distress at this time. Patient and/or sv family updated on plan of care and expected duration. Pain level reassessed. Pt pulling off BIPAP. BIPAP placed back on. 14:00 Reassessment: Patient appears in no apparent distress at this time. Pt asleep at this sv time. 14:47 Reassessment: Report given to Dalton from [facility]. sv Vital Signs: 08:37 BP 125 / 76; Pulse 145; Resp 40; Temp 101; Pulse Ox 95% on 60% BiPAP; Pain 0/10; hb 10:00 BP 129 / 85; Pulse 143; Resp 39; Temp 100.9(C); Pulse Ox 92% on 100% BiPAP; sv 10:15 BP 84 / 55; Pulse 144; Resp 31; Pulse Ox 92% on 100% BiPAP; sv 10:30 BP 116 / 98; Pulse 144; Resp 22; Pulse Ox 84% on 100% BiPAP; sv 10:45 BP 111 / 94; Pulse 143; Resp 22; Pulse Ox 88% on 100% BiPAP; sv 11:00 BP 121 / 69; Pulse 139; Resp 22; Pulse Ox 92% on 100% BiPAP; sv 11:15 BP 113 / 89; Pulse 137; Resp 20; Pulse Ox 87% on 100% BiPAP; sv 11:15 BP 113 / 89; Pulse 137; Resp 20; Pulse Ox 87% on 100% BiPAP; sv 11:30 BP 121 / 85; Pulse 137; Resp 22; Pulse Ox 88% on 100% BiPAP; sv 11:45 BP 122 / 71; Pulse 137; Resp 20; Pulse Ox 91% on 100% BiPAP; sv 12:00 BP 117 / 102; Pulse 115; Resp 15; Pulse Ox 91% on 100% BiPAP; hb 12:00 BP 117 / 102; Pulse 114; Resp 22; Temp 100.0(C); Pulse Ox 94% on 100% BiPAP; sv 12:15 BP 95 / 51; Pulse 113; Resp 22; Pulse Ox 92% on 100% BiPAP; sv 12:30 BP 100 / 53; Pulse 111; Resp 24; Temp 99.9(C); Pulse Ox 96% on 100% BiPAP; sv 12:45 BP 91 / 57; Pulse 109; Resp 22; Pulse Ox 97% on 100% BiPAP; sv 13:00 BP 96 / 60; Pulse 108; Resp 22; Pulse Ox 98% on 100% BiPAP; sv 13:15 BP 113 / 66; Pulse 104; Resp 22; Pulse Ox 98% on 100% BiPAP; sv 13:30 BP 91 / 61; Pulse 105; Resp 22; Pulse Ox 95% on 100% BiPAP; sv 13:45 BP 99 / 60; Pulse 104; Resp 22; Pulse Ox 98% on 100% BiPAP; sv 14:00 BP 105 / 66; Pulse 101; Resp 22; Temp 98.6(C); Pulse Ox 99% on 100% BiPAP; sv 14:15 BP 101 / 67; Pulse 102; Resp 22; Pulse Ox 97% on 100% BiPAP; sv 14:30 BP 103 / 60; Pulse 101; Resp 24; Pulse Ox 98% on 100% BiPAP; sv 14:45 BP 105 / 64; Pulse 100; Resp 22; Temp 98.4(C); Pulse Ox 98% on 100% BiPAP; sv 08:37 Jordan (FACES) hb ED Course: 08:30 Patient arrived in ED. ds1 08:31 Karen Dunn MD is Attending Physician. ma2 08:37 Maintain EMS IV. Dressing intact. Site clean \T\ dry. Gauge \T\ site: 18G R AC. sv 08:41 Triage completed. hb 08:45 Patient has correct armband on for positive identification. Placed in gown. Bed in low sv position. Call light in reach. Side rails up X2. answering service agent on. Pulse ox on. NIBP on. Head of bed elevated. 08:51 XRAY Chest (1 view) In Process Unspecified. EDMS 09:18 Madison Bustillo, WARREN is Primary Nurse. sv 09:18 BIPAP Sent. sv 09:19 Arm band placed on. sv 09:30 Inserted saline lock: 20 gauge in right hand, using aseptic technique. sv 09:50 Rausch cath inserted, using sterile technique, 16 Fr., by or, balloon inflated, to sv gravity drainage, urine specimen collected. other Criticore returned byron urine. Patient tolerated well. 11:06 initiated a transfer with Elder Sommers Rn from the [facility]. 12:38 administrative approval given by Elder Sommers Rn/ patient has been accepted to [facility] 6 [address] A Bed 10/ Dr. Elmo Gill has accepted the patient in transfer/ report to be called to the transfer center at [phone]. 13:12 No provider procedures requiring assistance completed. Patient transferred, IV remains sv in place. intact. Administered Medications: 08:55 Drug: Nitro Drip - (Nitroglycerin 50 mg, D5W 250 ml) Route: IV; Rate: 5 mcg/min; Site: sv right antecubital; 15:50 Follow up: IV Status: Infusion continued upon transfer sv 09:19 CANCELLED (given by EMSs): Acetaminophen 1000 mg PO once sv 10:00 Drug: Cefepime 1 grams {Note: given IVP per pharmacy protocol.} Route: IVPB; Rate: 200 ss ml/hr; Infused Over: 30 mins; Site: right hand; 10:02 Follow up: Response: No adverse reaction; IV Status: Completed infusion; IV Intake: 10mlsv 10:03 Drug: Lasix (furosemide) 100 mg Route: IVP; Site: right hand; ss 10:30 Follow up: Response: No adverse reaction sv 12:30 Drug: NS 0.9% 1000 ml Route: IV; Rate: 75 ml/hr; Site: right hand; hb 15:50 Follow up: IV Status: Infusion continued upon transfer sv 12:30 Drug: Aspirin Chewable Tablet 324 mg Route: PO; hb 12:43 Follow up: Response: No adverse reaction sv 12:30 Drug: Lovenox (enoxaparin) 80 mg Route: Sub-Q; Site: abdomen; hb 12:43 Follow up: Response: No adverse reaction sv 12:30 Drug: SOLU-Medrol (methylPrednisoLONE) 125 mg Route: IVP; Site: right hand; hb 12:43 Follow up: Response: No adverse reaction sv 12:48 Drug: vancoMYCIN 1 grams Route: IVPB; Infused Over: 2 hrs; Site: right hand; sv 14:50 Follow up: Response: No adverse reaction; IV Status: Completed infusion; IV Intake: sv 250ml Intake: 10:02 IV: 10ml; Total: 10ml. sv 14:50 IV: 250ml; Total: 260ml. sv Output: 15:30 Urine: 500ml (Rausch); Total: 500ml. sv Outcome: 12:46 ER care complete, transfer ordered by MD. hood 13:05 Transferred by [facility] to [facility], Transfer form completed. sv X-rays sent w/ patient. Note: Report given to Karla KELLEY at [facility]. 13:05 Condition: stable 13:05 Instructed on the need for transfer. 15:56 Patient left the ED. Signatures: Dispatcher [employer] EDMS Madison Bustillo RN RN Parisa Garcia ds1 Yolanda Forrest RN RN Kirstie Read RN RN Karen Dunn MD MD ar2 Philly Wilkins Corrections: (The following items were deleted from the chart) 15:57 14:00 BP 105 / 66; Pulse 101bpm; Resp 22bpm; Pulse Ox 99% 02 100% BiPAP; sv sv 15:58 14:45 BP 105 / 64; Pulse 100bpm; Resp 22bpm; Pulse Ox 98% 02 100% BiPAP; sv sv 18:50 12:30 Reassessment: Patient appears in no apparent distress at this time. Patient sv and/or family updated on plan of care and expected duration. Pain level reassessed. Patient states symptoms have improved. sv 18:50 11:15 Reassessment: Patient appears in no apparent distress at this time. Patient sv and/or family updated on plan of care and expected duration. Pain level reassessed. sv 18:50 13:11 Reassessment: Patient appears in no apparent distress at this time. Patient sv and/or family updated on plan of care and expected duration. Pain level reassessed. sv
[2021-04-02] MEDS ORDERED: METHYLPREDNISOLONE 125 MG INJ ONE (13:03)
[2021-04-02 13:33] LABS: Urine Bacteria >50 /HPF (NONE SEEN); Urine RBC <5 /HPF (NONE SEEN)
[2021-04-02 16:45] VITALS: TEMP 98.6
[2021-04-02 16:48] VITALS: O2SAT 98
[2021-04-02 16:49] VITALS: BP 105/64
== END 2021-04-02 15:56 | disposition short-term general hospital (02) ==
LOC: ER 08:30
DX: A41.89 Other specified sepsis (principal); U07.1 COVID-19; J16.8 Pneumonia due to other specified infectious organisms; R09.02 Hypoxemia; A49.1 Streptococcal infection, unspecified site; I21.4 Non-ST elevation (NSTEMI) myocardial infarction; N30.00 Acute cystitis without hematuria; R00.0 Tachycardia, unspecified; I10 Essential (primary) hypertension; I50.9 Heart failure, unspecified; Z86.73 Personal history of transient ischemic attack (TIA), and cerebral infarction without residual deficits
CPT/HCPCS: 93005; 87088; 85025; 87086; 80048; 36415; 83735; 85610; 80076; 87081; 83605; 84484; 83880; 0240U; 71045; 82805; 51702; 96372; 99291; 99292; J3370; J0692; J7030; J2930; 81003; 81015

== ENCOUNTER 2023-05-28 14:34 | Inpatient (IN) | payer OTHER ==
--- OUTSIDE RECORDS SUMMARY | 2023-05-28 14:42 | XMS REPORT | Continuity of Care Document ---
:1950 Author Organization [facility] t Address [address] [place] [id number] Care Team Providers Name Role Phone KATRIN PETERS Attending Clinician Unavailable ALEX_BAHC_Todd_Vicki Attending Clinician Unavailable Renita Lam Attending Clinician [phone] Rebeka Alonso Attending Clinician [phone] Kirstie Phan Attending Clinician [phone] GC_BAHC_Spanchon_Kain Attending Clinician Unavailable JENNIFER SMILEY Attending Clinician Unavailable Katrin Peters MD Attending Clinician Unavailable Americo Segura MD, Tanvi Vail Attending Clinician [phone] Myra Arreola MD Attending Clinician Eva Galvan MD Attending Clinician Rishabh Berrios Attending Clinician KATRIN PETERS Admitting Clinician Unavailable ALEX_BAHC_Leanne Admitting Clinician Unavailable GC_BAHC_Genaro_Kain Admitting Clinician Unavailable Payers Payer Name Policy Type Policy Number Effective Date Expiration Date Dai gomez MEDICARE B-[place]: [id number] 2012 [employer] 00:00:00 SHAILESH SAMSON - [id number] 2021 2023 [facility] 00:00:00 00:00:00 PARAMOUNT PLUS - SHELTER CARE (MEDICAID HMO) MEDICARE A B [id number] 2012 00:00:00 MEDICAID OF [place] [id number] 2017 00:00:00 Problems Condition Condition Condition Status Onset Resolution Last Treating Co mments Source Name Details Category Date Date Treatment Clinician Date Anemia in Anemia in Problem Active [facility] via chronic Chronic 2-03 Medical kidney Kidney 00:00: disease Disease 00 Inappropri Inappropri Problem Active [facility] ate ate 2-03 Medical behavior Behavior 00:00: 00 Dyspnea on Dyspnea on Problem Active 2021-08 [facility] exertion Exertion 2-05 Medica l 00:00: 00 Lives in a Lives in a Problem Active [facility] nursing Nursing 8-29 Medical home Home 00:00: 00 Need for Need for Problem Active [facility] personal Personal 829 Medica l care Care 00:00: assistance Assistance 00 Peripheral Peripheral Problem Active [facility] venous Venous 6-13 Medical insufficie Insufficie 00:00: ncy ncy 00 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 00:00: depression Depression 00 Morbid Morbid Problem Active [facility] obesity Obesity 5-15 Medical 00:00: 00 Hypertensi Hypertensi Problem Active [facility] ve heart ve Heart 5-15 Medica l and renal and Renal 00:00: disease Disease 00 with with (congestiv (Congestiv e) heart e) Heart failure 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[facility] 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:00: 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 Speech and Speech and Problem Active [facility] language Language 5-15 Medica l deficit as Deficit as 00:00: late Late 00 effect of Effect of cerebrovas Cerebrovas cular cular accident Accident Unable to Unable to Problem Active [facility] via walk Walk 5-15 Medical 00:00: 00 Bilateral Bilateral Problem Active [facility] via lower leg Lower Leg 5-15 Medi jennifer edema Edema 00:00: 00 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 00:00: 00 Hemiplegia Hemiplegia Problem Active [facility] of of 5-09 Medical nondominan Nondominan 00:00: t side as t Side as 00 late Late effect of Effect of cerebrovas Cerebrovas cular 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 Active [facility] diabetes Diabetes 4-16 Medica l mellitus Mellitus 00:00: 00 Chronic Chronic Problem Active [facility] atrial Atrial 4-14 Medical fibrillati Fibrillati 00:00: on on 00 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 00:00: and and 00 diastolic Diastolic heart Heart failure Failure Late Late Problem Active [facility] effects of Effects of 4-14 Me dical cerebrovas Cerebrovas 00:00: cular cular 00 disease Disease Gastroesop Gastroesop Problem Active [facility] hageal hageal 4-14 Medical reflux Reflux 00:00: disease Disease 00 Long-term Long-term Problem Active [facility] via current Current 4-14 Medical use of Use of 00:00: insulin Insulin 00 Vitamin D Vitamin D Problem Active [facility] via deficiency Deficiency 4-14 Me dical 00:00: 00 Hyperlipid Hyperlipid Problem Active [facility] emia emia 4-14 Medical 00:00: 00 Neuropathy Neuropathy Problem Active [facility] due to Due to 4-14 Medical diabetes Diabetes 00:00: mellitus Mellitus 00 Gastroesop Gastroesop Disease Active [facility]al [facility]al [facility]05 [facility] reflux reflux 00:[facility]: Medical disease disease 00 Center without without esophagiti esophagiti s s Language-r Language-r Disease Active [facility] elated elated 04-05 [facility] cognitive cognitive 00:00: Medi jennifer disorder disorder 00 Center Atrial Atrial Disease Recurre [facility] fibrillati fibrillati nce 04-05 [facility] k[facility] on on 00:00: Medical 00 Center Cerebrovas Cerebrovas Disease Recurre [facility] cular cular nce 04[facility]05 [facility] accident accident 00:00: Medica l (CVA) (CVA) 00 Center Congestive Congestive Disease Recurre [facility] heart heart nce 04-05 [facility] failure failure 00:00: Medical with left with left 00 Cent er ventricula ventricula r systolic r systolic dysfunctio dysfunctio n n Diastolic Diastolic Disease Recurre [facility] heart heart nce 04[facility]05 [facility] failure failure 00:00: Medical 00 Center Morbid Morbid Disease Recurre [facility] obesity obesity nce 04-05 [facility] 00:[facility]: Medical 00 Center 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 04[facility] 00:[facility]: Medical 00 [facility] Acute Acute Disease Active [facility] respirator respirator 8-29 [facility] y failure y failure 00:00: Medi jennifer due to due to 00 Center COVID-19 COVID-19 Acute Acute Disease Active [facility] respirator respirator 8-29 [facility] kes y failure y failure 00:00: Medi jennifer due to due to 00 Center COVID-19 COVID-19 Secondary Secondary Problem Active [facility] via immune Immune Medical deficiency Deficiency disorder Disorder Hypercoagu Hypercoagu Problem Active [facility] lability lability Medica l state State Residual Residual Problem Active [facility] cognitive Cognitive Medi jennifer deficit as Deficit as late 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 Accident Chronic Chronic Problem Active [facility] kidney Kidney Medical disease Disease stage 3A 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 Me dical due to Due to diabetes Diabetes mellitus Mellitus Diabetes Diabetes Problem Active 2019-04-05 [facility] mellitus mellitus 21:49:11 l (disorder) (disorder) Bjorn rmann Active Problem 04/05/2019 [facility] Difficulty Difficult Problem Active 2019-04-05 [facility] walking y walking 21:49:11 l (finding) (finding) Herm jason Active Problem 04/05/2019 [facility] Dysphagia Dysphagia Problem Active 2019-04-05 [facility] (disorder) (disorder) 21:49:11 l Active Willem Problem 04/05/2019 [facility] Dysthymia Dysthymia Problem Active 2019-04-05 [facility] (disorder) (disorder) 21:49:11 l Active Willem Problem 04/05/2019 [facility] Hemiparesi Hemipares Problem Active 2019-04-05 [facility] s is 21:49:11 l (disorder) (disorder) Bjorn rmann Active Problem 04/05/2019 [facility] Hemiplegia Hemiplegi Problem Active 2019-04-05 [facility] (disorder) a 21:49:11 l (disorder) Alex n Active Problem 04/05/2019 [facility] Hypertensi Hypertens Problem Active 2019-04-05 [facility] ve nancy 21:49:11 l disorder, disorder, Herm jason systemic systemic arterial arterial (disorder) (disorder) Active Problem 04/05/2019 [facility] Hypokalemi Hypokalem Problem Active 2019-04-05 [facility] a ia 21:49:11 l (disorder) (disorder) Bjorn ricardo Active Problem 04/05/2019 [facility] Incoordina Incoordin Problem Active 2019-04-05 [facility] tion ation 21:49:11 l (finding) (finding) Tosha gomez Active Problem 04/05/2019 [facility] Spasticity Spasticit Problem Active 2019-04-05 [facility] as sequela y as 21:49:11 l of stroke sequela of Her ma (disorder) stroke (disorder) Active Problem 04/05/2019 [facility] Swelling - Swelling Problem Active 2019-04-05 [facility] edema - - edema - 21:49:11 l symptom symptom Willem (finding) (finding) Active Problem 04/05/2019 [facility] Allergies, Adverse Reactions, Alerts Allergy Allergy Status Severity Reaction(s) Onset Inactive Treating Comm ents Source Name Type Date Date Clinician No Known No Known Active [facility] Medicati l on on [place] Allergie Allergie s s NO KNOWN Allergy Active [facility] Social History Social Habit Start Date Stop Date Quantity Comments Source Sex Assigned At [birth year] [facility] 00:00:00 00:00:00 [facility] Center Smoking Status Start Date Stop Date Source Never Smoker [facility] Social History 2019-01-01 19:01:41 2019-01-01 19:01:41 [facility] Medications Ordered Filled Start Stop Current Ordering Indication Dosage Frequency Signature Comments Components Source Medication Medication Date Date Medication? Clinician (SIG) Name Name atorvastati atorvastati No atorvastat [facility] n 40 mg n 40 mg 4-13 in 40 mg Medic al tablet tablet 00:00: tablet Lipitor- Lipitor- 00 Lipitor- give 40mg give 40mg give 40mg tablet po tablet po tablet po daily daily daily atorvastati atorvastati No atorvastat [facility] n 40 mg n 40 mg 4-13 in 40 mg Medic al tablet tablet 00:00: tablet Lipitor- Lipitor- 00 Lipitor- give 40mg give 40mg give 40mg tablet po tablet po tablet po daily daily daily aspirin 81 2020-0 2- No 81mg QD Take [address] [facility] MG chewable 04-12- tablet (81 L ukes tablet 00:00: 23:59 mg total) Medic al 00 :00 by mouth Center daily. aspirin 81 2020-0 2022- No 81mg QD Take [address] [facility] MG chewable 04-12- tablet (81 L ukes tablet 00:00: 23:59 mg total) Medic al 00 :00 by mouth Center daily. dexAMETHaso 2020-0 2021- No 6mg QD Take [address] [facility] ne 04-12-10 tablet (6 [facility] (DECADRON) 00:00: 23:59 mg total) M edical 6 MG tablet 00 :00 by mouth Cent er daily for 2 days. dexAMETHaso 2020-0 2021- No 6mg QD Take [address] [facility] ne 04-12-10 tablet (6 [facility] (DECADRON) 00:00: 23:59 mg total) M edical 6 MG tablet 00 :00 by mouth Cent er daily for 2 days. apixaban Yes 5mg Q.5D Take [address] [facility] (ELIQUIS) 5 - tablet (5 Liam es mg Tab 00:00: mg total) Medica l tablet 00 by mouth 2 Center (two) times daily. baclofen 0 Yes 5mg [id number] Take [address] (LIORESAL) 04-11 [id number] tablet (5 [facility] 5 mg Tab 00:00: 3D mg total) Medi jennifer 00 by mouth 3 Center (three) times daily. famotidine Yes 20mg Q.5D Take 1 [facility] (PEPCID) 20 - tablet (20 [facility] kes MG tablet 00:00: mg total) Med ical 00 by mouth 2 Center (two) times daily. insulin 0 Yes 10U QD Inject 10 [facility] glargine 9-07 Units [facility] (Lantus 00:00: subcutaneo Medi jennifer Solostar 00 usly every Cente r U-100 morning. Insulin) 100 unit/mL (3 mL) InPn apixaban 2021-0 Yes 5mg Q.5D Take [address] [facility] (ELIQUIS) 5 9-07 tablet (5 Liam es mg Tab 00:00: mg total) Medica l tablet 00 by mouth 2 Center (two) times daily. baclofen 2020-0 Yes 5mg [id number] Take [address] (LIORESAL) 04-11 [id number] tablet (5 [facility] 5 mg Tab 00:00: 3D mg total) Medi jennifer 00 by mouth 3 Center (three) times daily. famotidine 0 Yes 20mg Q.5D Take 1 [facility] (PEPCID) 20 - tablet (20 [facility] kes MG tablet 00:00: mg total) Med ical 00 by mouth 2 Center (two) times daily. insulin Yes 10U QD Inject 10 [facility] glargine 9-07 [facility] (Lantus 00:00: subcutaneo Medi jennifer Solostar 00 usly every Cente r U-100 morning. Insulin) 100 unit/mL (3 mL) InPn apixaban 0 Yes 5mg Q.5D Take [address] [facility] (ELIQUIS) 5 - tablet (5 Liam es mg Tab 00:00: mg total) Medica l tablet 00 by mouth 2 Center (two) times daily. baclofen 0 Yes 5mg [id number] Take [address] (LIORESAL) 04-11 [id number] tablet (5 [facility] 5 mg Tab 00:00: 3D mg total) Medi jennifer 00 by mouth 3 Center (three) times daily. famotidine 0 Yes 20mg Q.5D Take 1 [facility] (PEPCID) 20 9- tablet (20 [facility] kes MG tablet 00:00: mg total) Med ical 00 by mouth 2 Center (two) times daily. insulin 2020-0 Yes 10U QD Inject 10 [facility] glargine 9-07 Units [facility] (Lantus 00:00: subcutaneo Medi jennifer Solostar 00 usly every Cente r U-100 morning. Insulin) 100 unit/mL (3 mL) InPn carvediloL 0 2022- No 6.25mg Q.5D Take [address] (COREG) 04-11 tablet [facility] 6.25 MG 00:00: 23:59 (6.25 mg Medic al tablet 00 :00 total) by Center mouth 2 (two) times daily. carvediloL 2021- No 6.25mg Q.5D Take [address] (COREG) 04-11 tablet [facility] 6.25 MG 00:00: 23:59 (6.25 mg Medic al tablet 00 :00 total) by Center mouth 2 (two) times daily. acetaminoph 2021- No 650mg Take [address] en 04-11 tablets [facility] (TYLENOL) 00:00: 23:59 (650 mg Medi jennifer 325 MG 00 :00 total) by Center tablet mouth every 6 (six) hours as needed for up to 360 days. acetaminoph No 650mg Take [address] en 04-11 tablets [facility] (TYLENOL) 00:00: 23:59 (650 mg Medi jennifer 325 MG 00 :00 total) by Center tablet mouth every 6 (six) hours as needed for up to 360 days. Vitamin D3 Vitamin D3 No Vitamin D3 [facility] (cholecalci (cholecalci (cholecalc Medical ferol ferol iferol (vitamin (vitamin (vitamin de)) (OTC) de)) (OTC) de)) (OTC) tablet: tablet: tablet: 1000 units 1000 units 1000 units amt two amt two amt two tabs oral tabs oral tabs oral once a day once a day once a day atorvastati atorvastati No atorvastat [facility] n 40 mg n 40 mg in 40 mg Medic al tablet tablet tablet Lipitor- Lipitor- Lipitor- give 40mg give 40mg give 40mg tablet po tablet po tablet po daily daily daily baclofen 5 baclofen 5 No baclofen 5 [facility] mg tablet 1 mg tablet 1 mg tablet Medical tablet tid tablet tid 1 tablet tid Daily Daily No Daily [facility] Multivitami Multivitami Multivitam Medical n (Multivit n (Multivit in with with (Multivit min-folic min-folic with acid) acid) min-folic tablet tablet acid) 0.4mg amt: 0.4mg amt: tablet one tablet: one tablet: 0.4mg amt: give one give one one tab by tab by tablet: mouth once mouth once give one daily daily tab by mouth once daily divalproex divalproex No divalproex [facility] ER 500 mg ER 500 mg ER 500 mg Medical tablet,exte tablet,exte tablet,ext nded nded ended release 24 release 24 release 24 hr Take 2 hr Take 2 hr Take 2 tablets tablets tablets every day every day every day by oral by oral by oral route at route at route at bedtime. bedtime. bedtime. docusate docusate No docusate [facility] via sodium 100 sodium 100 sodium 100 Medical mg capsule mg capsule mg capsule (colace) (colace) (colace) TAKE 1 TAKE 1 TAKE 1 CAPSULE CAPSULE CAPSULE (100 MG) BY (100 MG) BY (100 MG) ORAL ROUTE ORAL ROUTE BY ORAL ONCE DAILY ONCE DAILY ROUTE ONCE AT BEDTIME AT BEDTIME DAILY AT NEEDED NEEDED BEDTIME NEEDED Eliquis 5 Eliquis 5 No Eliquis 5 [facility] mg tablet 1 mg tablet 1 mg tablet Medical tablet bid tablet bid 1 tablet bid furosemide furosemide No furosemide [facility] 40 mg 40 mg 40 mg Medical tablet Take tablet Take tablet 1 tablet 1 tablet Take 1 every day every day tablet by oral by oral every day route for route for by oral 14 days. 14 days. route for 14 days. gabapentin gabapentin No gabapentin [facility] 100 mg 100 mg 100 mg Medical capsule capsule capsule Take 1 Take 1 Take 1 capsule 3 capsule 3 capsule 3 times a day times a day times a by oral by oral day by route for route for oral route 30 days. 30 days. for 30 days. insulin insulin No insulin [facility] glargine glargine glargine Med ical (U-100) 100 (U-100) 100 (U-100) unit/mL (3 unit/mL (3 100 mL) mL) unit/mL (3 subcutaneou subcutaneou mL) s pen s pen subcutaneo Inject 10 Inject 10 us pen units every units every Inject 10 day by day by units sub-q route sub-q route every day at bedtime. at bedtime. by sub-q route at bedtime. insulin insulin No insulin [facility] lispro lispro lispro Medical (U-100) 100 (U-100) 100 (U-100) unit/mL unit/mL 100 subcutaneou subcutaneou unit/mL s pen s pen subcutaneo us pen insulin insulin No insulin [facility] lispro lispro lispro Medical (U-100) 100 (U-100) 100 (U-100) unit/mL unit/mL 100 subcutaneou subcutaneou unit/mL s solution s solution subcutaneo Inject 5 Inject 5 us units every units every solution day by day by Inject 5 sub-q route sub-q route units with meals with meals every day for 30 for 30 by sub-q days. days. route with meals for 30 days. metformin metformin No metformin [facility] 850 mg 850 mg 850 mg Medical tablet Take tablet Take tablet 1 tablet 1 tablet Take 1 twice a day twice a day tablet by oral by oral twice a route for route for day by 30 days. 30 days. oral route for 30 days. metoprolol metoprolol No metoprolol [facility] succinate succinate succinate Medical ER 25 mg ER 25 mg ER 25 mg tablet,exte tablet,exte tablet,ext nded nded ended release 24 release 24 release 24 hr Take 0.5 hr Take 0.5 hr Take tablets tablets 0.5 every day every day tablets by oral by oral every day route. route. by oral route. Tradjenta 5 Tradjenta 5 No Tradjenta [facility] mg tablet 1 mg tablet 1 5 mg M edical tab po tab po tablet 1 daily daily tab po daily trazodone trazodone No trazodone [facility] 100 mg 100 mg 100 mg Medical tablet Take tablet Take tablet 2 tablets 2 tablets Take 2 every day every day tablets by oral by oral every day route at route at by oral bedtime for bedtime for route at 30 days. 30 days. bedtime for 30 days. Vitamin D3 Vitamin D3 No Vitamin D3 [facility] (cholecalci (cholecalci (cholecalc Medical ferol ferol iferol (vitamin (vitamin (vitamin de)) (OTC) de)) (OTC) de)) (OTC) tablet: tablet: tablet: 1000 units 1000 units 1000 units amt two amt two amt two tabs oral tabs oral tabs oral once a day once a day once a day atorvastati atorvastati No atorvastat [facility] n 40 mg n 40 mg in 40 mg Medic al tablet tablet tablet Lipitor- Lipitor- Lipitor- give 40mg give 40mg give 40mg tablet po tablet po tablet po daily daily daily baclofen 5 baclofen 5 No baclofen 5 [facility] mg tablet 1 mg tablet 1 mg tablet Medical tablet tid tablet tid 1 tablet tid Basaglar Basaglar No Basaglar [facility] via KwikPen KwikPen KwikPen Medica l U-100 U-100 U-100 Insulin 100 Insulin 100 Insulin unit/mL (3 unit/mL (3 100 mL) mL) unit/mL (3 subcutaneou subcutaneou mL) s s subcutaneo us Daily Daily No Daily [facility] Multivitami Multivitami Multivitam Medical n (Multivit n (Multivit in with with (Multivit min-folic min-folic with acid) acid) min-folic tablet tablet acid) 0.4mg amt: 0.4mg amt: tablet one tablet: one tablet: 0.4mg amt: give one give one one tab by tab by tablet: mouth once mouth once give one daily daily tab by mouth once daily divalproex divalproex No divalproex [facility] ER 250 mg ER 250 mg ER 250 mg Medical tablet,exte tablet,exte tablet,ext nded nded ended release 24 release 24 release 24 hr Take 1 hr Take 1 hr Take 1 tablet tablet tablet twice a day twice a day twice a by oral by oral day by route for route for oral route 30 days. 30 days. for 30 days. docusate docusate No docusate [facility] via sodium 100 sodium 100 sodium 100 Medical mg capsule mg capsule mg capsule (colace) (colace) (colace) TAKE 1 TAKE 1 TAKE 1 CAPSULE CAPSULE CAPSULE (100 MG) BY (100 MG) BY (100 MG) ORAL ROUTE ORAL ROUTE BY ORAL ONCE DAILY ONCE DAILY ROUTE ONCE AT BEDTIME AT BEDTIME DAILY AT NEEDED NEEDED BEDTIME NEEDED Eliquis 5 Eliquis 5 No Eliquis 5 [facility] mg tablet 1 mg tablet 1 mg tablet Medical tablet bid tablet bid 1 tablet bid furosemide furosemide No furosemide [facility] 40 mg 40 mg 40 mg Medical tablet Take tablet Take tablet 1 tablet 1 tablet Take 1 every day every day tablet by oral by oral every day route for route for by oral 14 days. 14 days. route for 14 days. gabapentin gabapentin No gabapentin [facility] 100 mg 100 mg 100 mg Medical capsule capsule capsule Take 1 Take 1 Take 1 capsule 3 capsule 3 capsule 3 times a day times a day times a by oral by oral day by route for route for oral route 30 days. 30 days. for 30 days. Humalog Humalog No Humalog [facility] U-100 U-100 U-100 Medical Insulin 100 Insulin 100 Insulin unit/mL unit/mL 100 subcutaneou subcutaneou unit/mL s solution s solution subcutaneo Inject 5 Inject 5 us units every units every solution day by day by Inject 5 sub-q route sub-q route units with meals with meals every day for 30 for 30 by sub-q days. days. route with meals for 30 days. Lantus Lantus No Lantus [facility] U-100 U-100 U-100 Medical Insulin 100 Insulin 100 Insulin unit/mL unit/mL 100 subcutaneou subcutaneou unit/mL s solution s solution subcutaneo Inject 10 Inject 10 us units every units every solution day by day by Inject 10 sub-q route sub-q route units at bedtime. at bedtime. every day by sub-q route at bedtime. metformin metformin No metformin [facility] 850 mg 850 mg 850 mg Medical tablet Take tablet Take tablet 1 tablet 1 tablet Take 1 twice a day twice a day tablet by oral by oral twice a route for route for day by 30 days. 30 days. oral route for 30 days. metoprolol metoprolol No metoprolol [facility] succinate succinate succinate Medical ER 25 mg ER 25 mg ER 25 mg tablet,exte tablet,exte tablet,ext nded nded ended release 24 release 24 release 24 hr Take 0.5 hr Take 0.5 hr Take tablets tablets 0.5 every day every day tablets by oral by oral every day route. route. by oral route. Tradjenta 5 Tradjenta 5 No Tradjenta [facility] mg tablet 1 mg tablet 1 5 mg M edical tab po tab po tablet 1 daily daily tab po daily trazodone trazodone No 2 Q1D trazodone [facility] 100 mg 100 mg 100 mg Medical tablet Take tablet Take tablet 2 tablets 2 tablets Take 2 every day every day tablets by oral by oral every day route at route at by oral bedtime for bedtime for route at 30 days. 30 days. bedtime for 30 days. Vitamin D3 Vitamin D3 No Vitamin D3 [facility] (cholecalci (cholecalci (cholecalc Medical ferol ferol iferol (vitamin (vitamin (vitamin de)) (OTC) de)) (OTC) de)) (OTC) tablet: tablet: tablet: 1000 units 1000 units 1000 units amt two amt two amt two tabs oral tabs oral tabs oral once a day once a day once a day atorvastati atorvastati No atorvastat [facility] n 40 mg n 40 mg in 40 mg Medic al tablet tablet tablet Lipitor- Lipitor- Lipitor- give 40mg give 40mg give 40mg tablet po tablet po tablet po daily daily daily baclofen 5 baclofen 5 No baclofen 5 [facility] mg tablet 1 mg tablet 1 mg tablet Medical tablet tid tablet tid 1 tablet tid Basaglar Basaglar No Basaglar [facility] via KwikPen KwikPen KwikPen Medica l U-100 U-100 U-100 Insulin 100 Insulin 100 Insulin unit/mL (3 unit/mL (3 100 mL) mL) unit/mL (3 subcutaneou subcutaneou mL) s s subcutaneo us Daily Daily No Daily [facility] Multivitami Multivitami Multivitam Medical n (Multivit n (Multivit in with with (Multivit min-folic min-folic with acid) acid) min-folic tablet tablet acid) 0.4mg amt: 0.4mg amt: tablet one tablet: one tablet: 0.4mg amt: give one give one one tab by tab by tablet: mouth once mouth once give one daily daily tab by mouth once daily divalproex divalproex No divalproex [facility] ER 250 mg ER 250 mg ER 250 mg Medical tablet,exte tablet,exte tablet,ext nded nded ended release 24 release 24 release 24 hr Take 1 hr Take 1 hr Take 1 tablet tablet tablet twice a day twice a day twice a by oral by oral day by route for route for oral route 30 days. 30 days. for 30 days. docusate docusate No docusate [facility] via sodium 100 sodium 100 sodium 100 Medical mg capsule mg capsule mg capsule (colace) (colace) (colace) TAKE 1 TAKE 1 TAKE 1 CAPSULE CAPSULE CAPSULE (100 MG) BY (100 MG) BY (100 MG) ORAL ROUTE ORAL ROUTE BY ORAL ONCE DAILY ONCE DAILY ROUTE ONCE AT BEDTIME AT BEDTIME DAILY AT NEEDED NEEDED BEDTIME NEEDED Eliquis 5 Eliquis 5 No Eliquis 5 [facility] mg tablet 1 mg tablet 1 mg tablet Medical tablet bid tablet bid 1 tablet bid furosemide furosemide No furosemide [facility] 40 mg 40 mg 40 mg Medical tablet Take tablet Take tablet 1 tablet 1 tablet Take 1 every day every day tablet by oral by oral every day route for route for by oral 14 days. 14 days. route for 14 days. gabapentin gabapentin No gabapentin [facility] 100 mg 100 mg 100 mg Medical capsule capsule capsule Take 1 Take 1 Take 1 capsule 3 capsule 3 capsule 3 times a day times a day times a by oral by oral day by route for route for oral route 30 days. 30 days. for 30 days. Humalog Humalog No Humalog [facility] U-100 U-100 U-100 Medical Insulin 100 Insulin 100 Insulin unit/mL unit/mL 100 subcutaneou subcutaneou unit/mL s solution s solution subcutaneo Inject 5 Inject 5 us units every units every solution day by day by Inject 5 sub-q route sub-q route units with meals with meals every day for 30 for 30 by sub-q days. days. route with meals for 30 days. Lantus Lantus No Lantus [facility] U-100 U-100 U-100 Medical Insulin 100 Insulin 100 Insulin unit/mL unit/mL 100 subcutaneou subcutaneou unit/mL s solution s solution subcutaneo Inject 10 Inject 10 us units every units every solution day by day by Inject 10 sub-q route sub-q route units at bedtime. at bedtime. every day by sub-q route at bedtime. metformin metformin No metformin [facility] 850 mg 850 mg 850 mg Medical tablet Take tablet Take tablet 1 tablet 1 tablet Take 1 twice a day twice a day tablet by oral by oral twice a route for route for day by 30 days. 30 days. oral route for 30 days. metoprolol metoprolol No metoprolol [facility] succinate succinate succinate Medical ER 25 mg ER 25 mg ER 25 mg tablet,exte tablet,exte tablet,ext nded nded ended release 24 release 24 release 24 hr Take 0.5 hr Take 0.5 hr Take tablets tablets 0.5 every day every day tablets by oral by oral every day route. route. by oral route. Tradjenta 5 Tradjenta 5 No Tradjenta [facility] mg tablet 1 mg tablet 1 5 mg M edical tab po tab po tablet 1 daily daily tab po daily trazodone trazodone No 2 Q1D trazodone [facility] 100 mg 100 mg 100 mg Medical tablet Take tablet Take tablet 2 tablets 2 tablets Take 2 every day every day tablets by oral by oral every day route at route at by oral bedtime for bedtime for route at 30 days. 30 days. bedtime for 30 days. Vitamin D3 Vitamin D3 No Vitamin D3 [facility] (cholecalci (cholecalci (cholecalc Medical ferol ferol iferol (vitamin (vitamin (vitamin de)) (OTC) de)) (OTC) de)) (OTC) tablet: tablet: tablet: 1000 units 1000 units 1000 units amt two amt two amt two tabs oral tabs oral tabs oral once a day once a day once a day baclofen 5 baclofen 5 No baclofen 5 [facility] mg tablet 1 mg tablet 1 mg tablet Medical tablet tid tablet tid 1 tablet tid Daily Daily No Daily [facility] Multivitami Multivitami Multivitam Medical n (Multivit n (Multivit in with with (Multivit min-folic min-folic with acid) acid) min-folic tablet tablet acid) 0.4mg amt: 0.4mg amt: tablet one tablet: one tablet: 0.4mg amt: give one give one one tab by tab by tablet: mouth once mouth once give one daily daily tab by mouth once daily docusate docusate No docusate [facility] via sodium 100 sodium 100 sodium 100 Medical mg capsule mg capsule mg capsule (colace) (colace) (colace) TAKE 1 TAKE 1 TAKE 1 CAPSULE CAPSULE CAPSULE (100 MG) BY (100 MG) BY (100 MG) ORAL ROUTE ORAL ROUTE BY ORAL ONCE DAILY ONCE DAILY ROUTE ONCE AT BEDTIME AT BEDTIME DAILY AT NEEDED NEEDED BEDTIME NEEDED Eliquis 5 Eliquis 5 No Eliquis 5 [facility] mg tablet 1 mg tablet 1 mg tablet Medical tablet bid tablet bid 1 tablet bid furosemide furosemide No 1 Q1D furosemide [facility] 40 mg 40 mg 40 mg [facility] tablet Take tablet Take tablet 1 tablet 1 tablet Take 1 every day every day tablet by oral by oral every day route for route for by oral 14 days. 14 days. route for 14 days. gabapentin gabapentin No 1capsul TID gabapentin [facility] 100 mg 100 mg e(s) 100 mg Medical capsule capsule capsule Take 1 Take 1 Take 1 capsule 3 capsule 3 capsule 3 times a day times a day times a by oral by oral day by route for route for oral route 30 days. 30 days. for 30 days. Humalog Mix Humalog Mix No Humalog [facility] 100units/ml 100units/ml Mix M edical inject 5 inject 5 100units/m units units l inject 5 subcutaneou subcutaneou units s tid with s tid with subcutaneo meals do meals do us tid not give if not give if with meals blood sugar blood sugar do not under 70 under 70 give if blood sugar under 70 Lantus Lantus No Lantus [facility] U-100 U-100 U-100 Medical Insulin 100 Insulin 100 Insulin unit/mL unit/mL 100 subcutaneou subcutaneou unit/mL s solution s solution subcutaneo us solution metformin metformin No 1 BID metformin [facility] 850 mg 850 mg 850 mg Medical tablet Take tablet Take tablet 1 tablet 1 tablet Take 1 twice a day twice a day tablet by oral by oral twice a route for route for day by 30 days. 30 days. oral route for 30 days. metoprolol metoprolol No metoprolol [facility] tartrate 25 tartrate 25 tartrate Medical mg tablet mg tablet 25 mg amt 1 /2 amt 1 /2 tablet amt tab =12.5mg tab =12.5mg 1 /2 tab po daily po daily =12.5mg po hold if bp hold if bp daily hold less than less than if bp less 110/60 or 110/60 or than hr less hr less 110/60 or than 60 than 60 hr less than 60 Tradjenta 5 Tradjenta 5 No Tradjenta [facility] mg tablet 1 mg tablet 1 5 mg M edical tab po tab po tablet 1 daily daily tab po daily trazodone trazodone No trazodone [facility] 150 mg 150 mg 150 mg Medical tablet 1 tablet 1 tablet 1 tablet po tablet po tablet po at bedtime at bedtime at bedtime Vitamin D3 Vitamin D3 No Vitamin D3 [facility] (cholecalci (cholecalci (cholecalc Medical ferol ferol iferol (vitamin (vitamin (vitamin de)) (OTC) de)) (OTC) de)) (OTC) tablet: tablet: tablet: 1000 units 1000 units 1000 units amt two amt two amt two tabs oral tabs oral tabs oral once a day once a day once a day baclofen 5 baclofen 5 No baclofen 5 [facility] mg tablet 1 mg tablet 1 mg tablet Medical tablet tid tablet tid 1 tablet tid Daily Daily No Daily [facility] Multivitami Multivitami Multivitam Medical n (Multivit n (Multivit in with with (Multivit min-folic min-folic with acid) acid) min-folic tablet tablet acid) 0.4mg amt: 0.4mg amt: tablet one tablet: one tablet: 0.4mg amt: give one give one one tab by tab by tablet: mouth once mouth once give one daily daily tab by mouth once daily docusate docusate No docusate [facility] via sodium 100 sodium 100 sodium 100 Medical mg capsule mg capsule mg capsule (colace) (colace) (colace) TAKE 1 TAKE 1 TAKE 1 CAPSULE CAPSULE CAPSULE (100 MG) BY (100 MG) BY (100 MG) ORAL ROUTE ORAL ROUTE BY ORAL ONCE DAILY ONCE DAILY ROUTE ONCE AT BEDTIME AT BEDTIME DAILY AT NEEDED NEEDED BEDTIME NEEDED Eliquis 5 Eliquis 5 No Eliquis 5 [facility] mg tablet 1 mg tablet 1 mg tablet Medical tablet bid tablet bid 1 tablet bid furosemide furosemide No 1 Q1D furosemide [facility] 40 mg 40 mg 40 mg Medical tablet Take tablet Take tablet 1 tablet 1 tablet Take 1 every day every day tablet by oral by oral every day route for route for by oral 14 days. 14 days. route for 14 days. gabapentin gabapentin No 1capsul TID gabapentin [facility] 100 mg 100 mg e(s) 100 mg Medical capsule capsule capsule Take 1 Take 1 Take 1 capsule 3 capsule 3 capsule 3 times a day times a day times a by oral by oral day by route for route for oral route 30 days. 30 days. for 30 days. Humalog Mix Humalog Mix No Humalog [facility] 100units/ml 100units/ml Mix M edical inject 5 inject 5 100units/m units units l inject 5 subcutaneou subcutaneou units s tid with s tid with subcutaneo meals do meals do us tid not give if not give if with meals blood sugar blood sugar do not under 70 under 70 give if blood sugar under 70 Lantus Lantus No Lantus [facility] U-100 U-100 U-100 Medical Insulin 100 Insulin 100 Insulin unit/mL unit/mL 100 subcutaneou subcutaneou unit/mL s solution s solution subcutaneo us solution metformin metformin No 1 BID metformin [facility] 850 mg 850 mg 850 mg Medical tablet Take tablet Take tablet 1 tablet 1 tablet Take 1 twice a day twice a day tablet by oral by oral twice a route for route for day by 30 days. 30 days. oral route for 30 days. metoprolol metoprolol No metoprolol [facility] tartrate 25 tartrate 25 tartrate Medical mg tablet mg tablet 25 mg amt 1 /2 amt 1 /2 tablet amt tab =12.5mg tab =12.5mg 1 /2 tab po daily po daily =12.5mg po hold if bp hold if bp daily hold less than less than if bp less 110/60 or 110/60 or than hr less hr less 110/60 or than 60 than 60 hr less than 60 Tradjenta 5 Tradjenta 5 No Tradjenta [facility] mg tablet 1 mg tablet 1 5 mg M edical tab po tab po tablet 1 daily daily tab po daily trazodone trazodone No trazodone [facility] 150 mg 150 mg 150 mg Medical tablet 1 tablet 1 tablet 1 tablet po tablet po tablet po at bedtime at bedtime at bedtime Vitamin D3 Vitamin D3 No Vitamin D3 [facility] (cholecalci (cholecalci (cholecalc Medical ferol ferol iferol (vitamin (vitamin (vitamin de)) (OTC) de)) (OTC) de)) (OTC) tablet: tablet: tablet: 1000 units 1000 units 1000 units amt two amt two amt two tabs oral tabs oral tabs oral once a day once a day once a day atorvastati atorvastati No atorvastat [facility] n 40 mg n 40 mg in 40 mg Medic al tablet tablet tablet Lipitor- Lipitor- Lipitor- give 40mg give 40mg give 40mg tablet po tablet po tablet po daily daily daily baclofen 5 baclofen 5 No baclofen 5 [facility] mg tablet 1 mg tablet 1 mg tablet Medical tablet tid tablet tid 1 tablet tid Daily Daily No Daily [facility] Multivitami Multivitami Multivitam Medical n (Multivit n (Multivit in with with (Multivit min-folic min-folic with acid) acid) min-folic tablet tablet acid) 0.4mg amt: 0.4mg amt: tablet one tablet: one tablet: 0.4mg amt: give one give one one tab by tab by tablet: mouth once mouth once give one daily daily tab by mouth once daily docusate docusate No docusate [facility] via sodium 100 sodium 100 sodium 100 Medical mg capsule mg capsule mg capsule (colace) (colace) (colace) TAKE 1 TAKE 1 TAKE 1 CAPSULE CAPSULE CAPSULE (100 MG) BY (100 MG) BY (100 MG) ORAL ROUTE ORAL ROUTE BY ORAL ONCE DAILY ONCE DAILY ROUTE ONCE AT BEDTIME AT BEDTIME DAILY AT NEEDED NEEDED BEDTIME NEEDED Eliquis 5 Eli[facility] 5 No Eliquis 5 [facility] mg tablet 1 mg tablet 1 mg tablet Medical tablet bid tablet bid 1 tablet bid furosemide furosemide No furosemide [facility] 40 mg 40 mg 40 mg Medical tablet Take tablet Take tablet 1 tablet 1 tablet Take 1 every day every day tablet by oral by oral every day route for route for by oral 14 days. 14 days. route for 14 days. gabapentin gabapentin No 1capsul TID gabapentin [facility] 100 mg 100 mg e(s) 100 mg Medical capsule capsule capsule Take 1 Take 1 Take 1 capsule 3 capsule 3 capsule 3 times a day times a day times a by oral by oral day by route for route for oral route 30 days. 30 days. for 30 days. Humalog Mix Humalog Mix No Humalog [facility] 100units/ml 100units/ml Mix M edical inject 5 inject 5 100units/m units units l inject 5 subcutaneou subcutaneou units s tid with s tid with subcutaneo meals do meals do us tid not give if not give if with meals blood sugar blood sugar do not under 70 under 70 give if blood sugar under 70 insulin insulin No insulin [facility] lispro lispro lispro Medical (U-100) 100 (U-100) 100 (U-100) unit/mL unit/mL 100 subcutaneou subcutaneou unit/mL s solution s solution subcutaneo us solution Lantus Lantus No Lantus [facility] U-100 U-100 U-100 Medical Insulin 100 Insulin 100 Insulin unit/mL unit/mL 100 subcutaneou subcutaneou unit/mL s solution s solution subcutaneo us solution metformin metformin No metformin [facility] 850 mg 850 mg 850 mg Medical tablet Take tablet Take tablet 1 tablet 1 tablet Take 1 twice a day twice a day tablet by oral by oral twice a route for route for day by 30 days. 30 days. oral route for 30 days. metoprolol metoprolol No metoprolol [facility] tartrate 25 tartrate 25 tartrate Medical mg tablet mg tablet 25 mg amt 1 /2 amt 1 /2 tablet amt tab =12.5mg tab =12.5mg 1 /2 tab po daily po daily =12.5mg po hold if bp hold if bp daily hold less than less than if bp less 110/60 or 110/60 or than hr less hr less 110/60 or than 60 than 60 hr less than 60 Tradjenta 5 Tradjenta 5 No Tradjenta [facility] mg tablet 1 mg tablet 1 5 mg M edical tab po tab po tablet 1 daily daily tab po daily trazodone trazodone No trazodone [facility] 150 mg 150 mg 150 mg Medical tablet 1 tablet 1 tablet 1 tablet po tablet po tablet po at bedtime at bedtime at bedtime trazodone trazodone No 1 Q1D trazodone [facility] 50 mg 50 mg 50 mg Medical tablet Take tablet Take tablet 1 tablet 1 tablet Take 1 every day every day tablet by oral by oral every day route at route at by oral bedtime. bedtime. route at bedtime. Vitamin D3 Vitamin D3 No Vitamin D3 [facility] (cholecalci (cholecalci (cholecalc Medical ferol ferol iferol (vitamin (vitamin (vitamin de)) (OTC) de)) (OTC) de)) (OTC) tablet: tablet: tablet: 1000 units 1000 units 1000 units amt two amt two amt two tabs oral tabs oral tabs oral once a day once a day once a day atorvastati atorvastati No atorvastat [facility] n 40 mg n 40 mg in 40 mg Medic al tablet tablet tablet Lipitor- Lipitor- Lipitor- give 40mg give 40mg give 40mg tablet po tablet po tablet po daily daily daily baclofen 5 baclofen 5 No baclofen 5 [facility] mg tablet 1 mg tablet 1 mg tablet Medical tablet tid tablet tid 1 tablet tid Daily Daily No Daily [facility] Multivitami Multivitami Multivitam Medical n (Multivit n (Multivit in with with (Multivit min-folic min-folic with acid) acid) min-folic tablet tablet acid) 0.4mg amt: 0.4mg amt: tablet one tablet: one tablet: 0.4mg amt: give one give one one tab by tab by tablet: mouth once mouth once give one daily daily tab by mouth once daily docusate docusate No docusate [facility] via sodium 100 sodium 100 sodium 100 Medical mg capsule mg capsule mg capsule (colace) (colace) (colace) TAKE 1 TAKE 1 TAKE 1 CAPSULE CAPSULE CAPSULE (100 MG) BY (100 MG) BY (100 MG) ORAL ROUTE ORAL ROUTE BY ORAL ONCE DAILY ONCE DAILY ROUTE ONCE AT BEDTIME AT BEDTIME DAILY AT NEEDED NEEDED BEDTIME NEEDED Eliquis 5 Eliquis 5 No Eliquis 5 [facility] mg tablet 1 mg tablet 1 mg tablet Medical tablet bid tablet bid 1 tablet bid furosemide furosemide No furosemide [facility] 40 mg 40 mg 40 mg Medical tablet Take tablet Take tablet 1 tablet 1 tablet Take 1 every day every day tablet by oral by oral every day route for route for by oral 14 days. 14 days. route for 14 days. gabapentin gabapentin No 1capsul TID gabapentin [facility] 100 mg 100 mg e(s) 100 mg Medical capsule capsule capsule Take 1 Take 1 Take 1 capsule 3 capsule 3 capsule 3 times a day times a day times a by oral by oral day by route for route for oral route 30 days. 30 days. for 30 days. Humalog Mix Humalog Mix No Humalog [facility] 100units/ml 100units/ml Mix M edical inject 5 inject 5 100units/m units units l inject 5 subcutaneou subcutaneou units s tid with s tid with subcutaneo meals do meals do us tid not give if not give if with meals blood sugar blood sugar do not under 70 under 70 give if blood sugar under 70 insulin insulin No insulin [facility] lispro lispro lispro Medical (U-100) 100 (U-100) 100 (U-100) unit/mL unit/mL 100 subcutaneou subcutaneou unit/mL s solution s solution subcutaneo us solution Lantus Lantus No Lantus [facility] U-100 U-100 U-100 Medical Insulin 100 Insulin 100 Insulin unit/mL unit/mL 100 subcutaneou subcutaneou unit/mL s solution s solution subcutaneo us solution metformin metformin No metformin [facility] 850 mg 850 mg 850 mg Medical tablet Take tablet Take tablet 1 tablet 1 tablet Take 1 twice a day twice a day tablet by oral by oral twice a route for route for day by 30 days. 30 days. oral route for 30 days. metoprolol metoprolol No metoprolol [facility] tartrate 25 tartrate 25 tartrate Medical mg tablet mg tablet 25 mg amt 1 /2 amt 1 /2 tablet amt tab =12.5mg tab =12.5mg 1 /2 tab po daily po daily =12.5mg po hold if bp hold if bp daily hold less than less than if bp less 110/60 or 110/60 or than hr less hr less 110/60 or than 60 than 60 hr less than 60 Tradjenta 5 Tr[facility]enta 5 No Tradjenta [facility] mg tablet 1 mg tablet 1 5 mg M edical tab po tab po tablet 1 daily daily tab po daily trazodone trazodone No trazodone [facility] 150 mg 150 mg 150 mg Medical tablet 1 tablet 1 tablet 1 tablet po tablet po tablet po at bedtime at bedtime at bedtime trazodone trazodone No 1 Q1D trazodone [facility] 50 mg 50 mg 50 mg Medical tablet Take tablet Take tablet 1 tablet 1 tablet Take 1 every day every day tablet by oral by oral every day route at route at by oral bedtime. bedtime. route at bedtime. Vitamin D3 Vitamin D3 No Vitamin D3 [facility] (cholecalci (cholecalci (cholecalc Medical ferol ferol iferol (vitamin (vitamin (vitamin de)) (OTC) de)) (OTC) de)) (OTC) tablet: tablet: tablet: 1000 units 1000 units 1000 units amt two amt two amt two tabs oral tabs oral tabs oral once a day once a day once a day atorvastati atorvastati No atorvastat [facility] n 40 mg n 40 mg in 40 mg Medic al tablet tablet tablet Lipitor- Lipitor- Lipitor- give 40mg give 40mg give 40mg tablet po tablet po tablet po daily daily daily baclofen 5 baclofen 5 No baclofen 5 [facility] mg tablet 1 mg tablet 1 mg tablet Medical tablet tid tablet tid 1 tablet tid Daily Daily No Daily [facility] Multivitami Multivitami Multivitam Medical n (Multivit n (Multivit in with with (Multivit min-folic min-folic with acid) acid) min-folic tablet tablet acid) 0.4mg amt: 0.4mg amt: tablet one tablet: one tablet: 0.4mg amt: give one give one one tab by tab by tablet: mouth once mouth once give one daily daily tab by mouth once daily docusate docusate No docusate [facility] via sodium 100 sodium 100 sodium 100 Medical mg capsule mg capsule mg capsule (colace) (colace) (colace) TAKE 1 TAKE 1 TAKE 1 CAPSULE CAPSULE CAPSULE (100 MG) BY (100 MG) BY (100 MG) ORAL ROUTE ORAL ROUTE BY ORAL ONCE DAILY ONCE DAILY ROUTE ONCE AT BEDTIME AT BEDTIME DAILY AT NEEDED NEEDED BEDTIME NEEDED Eliquis 5 Eliquis 5 No Eliquis 5 [facility] mg tablet 1 mg tablet 1 mg tablet Medical tablet bid tablet bid 1 tablet bid furosemide furosemide No furosemide [facility] 40 mg 40 mg 40 mg Medical tablet Take tablet Take tablet 1 tablet 1 tablet Take 1 every day every day tablet by oral by oral every day route for route for by oral 14 days. 14 days. route for 14 days. gabapentin gabapentin No 1capsul TID gabapentin [facility] 100 mg 100 mg e(s) 100 mg Medical capsule capsule capsule Take 1 Take 1 Take 1 capsule 3 capsule 3 capsule 3 times a day times a day times a by oral by oral day by route for route for oral route 30 days. 30 days. for 30 days. insulin insulin No 5unit(s Q1D insulin [facility] via lispro lispro ) lispro Medical (U-100) 100 (U-100) 100 (U-100) unit/mL unit/mL 100 subcutaneou subcutaneou unit/mL s solution s solution subcutaneo Inject 5 Inject 5 us units every units every solution day by day by Inject 5 sub-q route sub-q route units with meals with meals every day for 30 for 30 by sub-q days. days. route with meals for 30 days. Lantus Lantus No 10unit( Q1D Lantus [facility] U-100 U-100 s) U-100 Medical Insulin 100 Insulin 100 Insulin unit/mL unit/mL 100 subcutaneou subcutaneou unit/mL s solution s solution subcutaneo Inject 10 Inject 10 us units every units every solution day by day by Inject 10 sub-q route sub-q route units at bedtime. at bedtime. every day by sub-q route at bedtime. metformin metformin No metformin [facility] 850 mg 850 mg 850 mg Medical tablet Take tablet Take tablet 1 tablet 1 tablet Take 1 twice a day twice a day tablet by oral by oral twice a route for route for day by 30 days. 30 days. oral route for 30 days. metoprolol metoprolol No metoprolol [facility] tartrate 25 tartrate 25 tartrate Medical mg tablet mg tablet 25 mg amt 1 /2 amt 1 /2 tablet amt tab =12.5mg tab =12.5mg 1 /2 tab po daily po daily =12.5mg po hold if bp hold if bp daily hold less than less than if bp less 110/60 or 110/60 or than hr less hr less 110/60 or than 60 than 60 hr less than 60 Tradjenta 5 Tr[facility]enta 5 No Tradjenta [facility] mg tablet 1 mg tablet 1 5 mg M edical tab po tab po tablet 1 daily daily tab po daily trazodone trazodone No trazodone [facility] 150 mg 150 mg 150 mg Medical tablet 1 tablet 1 tablet 1 tablet po tablet po tablet po at bedtime at bedtime at bedtime trazodone trazodone No 1 Q1D trazodone [facility] 50 mg 50 mg 50 mg Medical tablet Take tablet Take tablet 1 tablet 1 tablet Take 1 every day every day tablet by oral by oral every day route at route at by oral bedtime. bedtime. route at bedtime. Vitamin D3 Vitamin D3 No Vitamin D3 [facility] (cholecalci (cholecalci (cholecalc Medical ferol ferol iferol (vitamin (vitamin (vitamin de)) (OTC) de)) (OTC) de)) (OTC) tablet: tablet: tablet: 1000 units 1000 units 1000 units amt two amt two amt two tabs oral tabs oral tabs oral once a day once a day once a day atorvastati atorvastati No atorvastat [facility] n 40 mg n 40 mg in 40 mg Medic al tablet tablet tablet Lipitor- Lipitor- Lipitor- give 40mg give 40mg give 40mg tablet po tablet po tablet po daily daily daily baclofen 5 baclofen 5 No baclofen 5 [facility] mg tablet 1 mg tablet 1 mg tablet Medical tablet tid tablet tid 1 tablet tid Daily Daily No Daily [facility] Multivitami Multivitami Multivitam Medical n (Multivit n (Multivit in with with (Multivit min-folic min-folic with acid) acid) min-folic tablet tablet acid) 0.4mg amt: 0.4mg amt: tablet one tablet: one tablet: 0.4mg amt: give one give one one tab by tab by tablet: mouth once mouth once give one daily daily tab by mouth once daily divalproex divalproex No 1 BID divalproex [facility] ER 250 mg ER 250 mg ER 250 mg Medical tablet,exte tablet,exte tablet,ext nded nded ended release 24 release 24 release 24 hr Take 1 hr Take 1 hr Take 1 tablet tablet tablet twice a day twice a day twice a by oral by oral day by route for route for oral route 30 days. 30 days. for 30 days. docusate docusate No docusate [facility] via sodium 100 sodium 100 sodium 100 Medical mg capsule mg capsule mg capsule (colace) (colace) (colace) TAKE 1 TAKE 1 TAKE 1 CAPSULE CAPSULE CAPSULE (100 MG) BY (100 MG) BY (100 MG) ORAL ROUTE ORAL ROUTE BY ORAL ONCE DAILY ONCE DAILY ROUTE ONCE AT BEDTIME AT BEDTIME DAILY AT NEEDED NEEDED BEDTIME NEEDED Eliquis 5 Eliquis 5 No Eliquis 5 [facility] mg tablet 1 mg tablet 1 mg tablet Medical tablet bid tablet bid 1 tablet bid furosemide furosemide No furosemide [facility] 40 mg 40 mg 40 mg Medical tablet Take tablet Take tablet 1 tablet 1 tablet Take 1 every day every day tablet by oral by oral every day route for route for by oral 14 days. 14 days. route for 14 days. gabapentin gabapentin No gabapentin [facility] 100 mg 100 mg 100 mg Medical capsule capsule capsule Take 1 Take 1 Take 1 capsule 3 capsule 3 capsule 3 times a day times a day times a by oral by oral day by route for route for oral route 30 days. 30 days. for 30 days. insulin insulin No 5unit(s Q1D insulin [facility] via lispro lispro ) lispro Medical (U-100) 100 (U-100) 100 (U-100) unit/mL unit/mL 100 subcutaneou subcutaneou unit/mL s solution s solution subcutaneo Inject 5 Inject 5 us units every units every solution day by day by Inject 5 sub-q route sub-q route units with meals with meals every day for 30 for 30 by sub-q days. days. route with meals for 30 days. Lantus Lantus No 10unit( Q1D Lantus [facility] U-100 U-100 s) U-100 Medical Insulin 100 Insulin 100 Insulin unit/mL unit/mL 100 subcutaneou subcutaneou unit/mL s solution s solution subcutaneo Inject 10 Inject 10 us units every units every solution day by day by Inject 10 sub-q route sub-q route units at bedtime. at bedtime. every day by sub-q route at bedtime. metformin metformin No metformin [facility] 850 mg 850 mg 850 mg Medical tablet Take tablet Take tablet 1 tablet 1 tablet Take 1 twice a day twice a day tablet by oral by oral twice a route for route for day by 30 days. 30 days. oral route for 30 days. metoprolol metoprolol No metoprolol [facility] tartrate 25 tartrate 25 tartrate Medical mg tablet mg tablet 25 mg amt 1 /2 amt 1 /2 tablet amt tab =12.5mg tab =12.5mg 1 /2 tab po daily po daily =12.5mg po hold if bp hold if bp daily hold less than less than if bp less 110/60 or 110/60 or than hr less hr less 110/60 or than 60 than 60 hr less than 60 Tradjenta 5 [facility] 5 No Tradjenta [facility] mg tablet 1 mg tablet 1 5 mg M edical tab po tab po tablet 1 daily daily tab po daily trazodone trazodone No trazodone [facility] 150 mg 150 mg 150 mg Medical tablet 1 tablet 1 tablet 1 tablet po tablet po tablet po at bedtime at bedtime at bedtime Vitamin D3 Vitamin D3 No Vitamin D3 [facility] (cholecalci (cholecalci (cholecalc Medical ferol ferol iferol (vitamin (vitamin (vitamin de)) (OTC) de)) (OTC) de)) (OTC) tablet: tablet: tablet: 1000 units 1000 units 1000 units amt two amt two amt two tabs oral tabs oral tabs oral once a day once a day once a day atorvastati atorvastati No atorvastat [facility] n 40 mg n 40 mg in 40 mg Medic al tablet tablet tablet Lipitor- Lipitor- Lipitor- give 40mg give 40mg give 40mg tablet po tablet po tablet po daily daily daily baclofen 5 baclofen 5 No baclofen 5 [facility] mg tablet 1 mg tablet 1 mg tablet Medical tablet tid tablet tid 1 tablet tid Daily Daily No Daily [facility] Multivitami Multivitami Multivitam Medical n (Multivit n (Multivit in with with (Multivit min-folic min-folic with acid) acid) min-folic tablet tablet acid) 0.4mg amt: 0.4mg amt: tablet one tablet: one tablet: 0.4mg amt: give one give one one tab by tab by tablet: mouth once mouth once give one daily daily tab by mouth once daily divalproex divalproex No 1 BID divalproex [facility] ER 250 mg ER 250 mg ER 250 mg Medical tablet,exte tablet,exte tablet,ext nded nded ended release 24 release 24 release 24 hr Take 1 hr Take 1 hr Take 1 tablet tablet tablet twice a day twice a day twice a by oral by oral day by route for route for oral route 30 days. 30 days. for 30 days. docusate docusate No docusate [facility] via sodium 100 sodium 100 sodium 100 Medical mg capsule mg capsule mg capsule (colace) (colace) (colace) TAKE 1 TAKE 1 TAKE 1 CAPSULE CAPSULE CAPSULE (100 MG) BY (100 MG) BY (100 MG) ORAL ROUTE ORAL ROUTE BY ORAL ONCE DAILY ONCE DAILY ROUTE ONCE AT BEDTIME AT BEDTIME DAILY AT NEEDED NEEDED BEDTIME NEEDED Eliquis 5 Eliquis 5 No Eliquis 5 [facility] mg tablet 1 mg tablet 1 mg tablet Medical tablet bid tablet bid 1 tablet bid furosemide furosemide No furosemide [facility] 40 mg 40 mg 40 mg Medical tablet Take tablet Take tablet 1 tablet 1 tablet Take 1 every day every day tablet by oral by oral every day route for route for by oral 14 days. 14 days. route for 14 days. gabapentin gabapentin No gabapentin [facility] 100 mg 100 mg 100 mg [facility] capsule capsule capsule Take 1 Take 1 Take 1 capsule 3 capsule 3 capsule 3 times a day times a day times a by oral by oral day by route for route for oral route 30 days. 30 days. for 30 days. insulin insulin No 5unit(s Q1D insulin [facility] via lispro lispro ) lispro Medical (U-100) 100 (U-100) 100 (U-100) unit/mL unit/mL 100 subcutaneou subcutaneou unit/mL s solution s solution subcutaneo Inject 5 Inject 5 us units every units every solution day by day by Inject 5 sub-q route sub-q route units with meals with meals every day for 30 for 30 by sub-q days. days. route with meals for 30 days. Lantus Lantus No 10unit( Q1D Lantus [facility] U-100 U-100 s) U-100 [facility] Insulin 100 Insulin 100 Insulin unit/mL unit/mL 100 subcutaneou subcutaneou unit/mL s solution s solution subcutaneo Inject 10 Inject 10 us units every units every solution day by day by Inject 10 sub-q route sub-q route units at bedtime. at bedtime. every day by sub-q route at bedtime. metformin metformin No metformin [facility] 850 mg 850 mg 850 mg [facility] tablet Take tablet Take tablet 1 tablet 1 tablet Take 1 twice a day twice a day tablet by oral by oral twice a route for route for day by 30 days. 30 days. oral route for 30 days. metoprolol metoprolol No .5 Q1D metoprolol [facility] succinate succinate succinate [facility] ER 25 mg ER 25 mg ER 25 mg tablet,exte tablet,exte tablet,ext nded nded ended release 24 release 24 release 24 hr Take 0.5 hr Take 0.5 hr Take tablets tablets 0.5 every day every day tablets by oral by oral every day route. route. by oral route. Tradjenta 5 Tradjenta 5 No Tradjenta [facility] mg tablet 1 mg tablet 1 5 mg M edical tab po tab po tablet 1 daily daily tab po daily trazodone trazodone No trazodone [facility] 150 mg 150 mg 150 mg Medical tablet 1 tablet 1 tablet 1 tablet po tablet po tablet po at bedtime at bedtime at bedtime Vitamin D3 Vitamin D3 No Vitamin D3 [facility] (cholecalci (cholecalci (cholecalc Medical ferol ferol iferol (vitamin (vitamin (vitamin de)) (OTC) de)) (OTC) de)) (OTC) tablet: tablet: tablet: 1000 units 1000 units 1000 units amt two amt two amt two tabs oral tabs oral tabs oral once a day once a day once a day atorvastati atorvastati No atorvastat [facility] n 40 mg n 40 mg in 40 mg Medic al tablet tablet tablet Lipitor- Lipitor- Lipitor- give 40mg give 40mg give 40mg tablet po tablet po tablet po daily daily daily baclofen 5 baclofen 5 No baclofen 5 [facility] mg tablet 1 mg tablet 1 mg tablet Medical tablet tid tablet tid 1 tablet tid Daily Daily No Daily [facility] Multivitami Multivitami Multivitam Medical n (Multivit n (Multivit in with with (Multivit min-folic min-folic with acid) acid) min-folic tablet tablet acid) 0.4mg amt: 0.4mg amt: tablet one tablet: one tablet: 0.4mg amt: give one give one one tab by tab by tablet: mouth once mouth once give one daily daily tab by mouth once daily divalproex divalproex No 1 BID divalproex [facility] ER 250 mg ER 250 mg ER 250 mg Medical tablet,exte tablet,exte tablet,ext nded nded ended release 24 release 24 release 24 hr Take 1 hr Take 1 hr Take 1 tablet tablet tablet twice a day twice a day twice a by oral by oral day by route for route for oral route 30 days. 30 days. for 30 days. docusate docusate No docusate [facility] via sodium 100 sodium 100 sodium 100 Medical mg capsule mg capsule mg capsule (colace) (colace) (colace) TAKE 1 TAKE 1 TAKE 1 CAPSULE CAPSULE CAPSULE (100 MG) BY (100 MG) BY (100 MG) ORAL ROUTE ORAL ROUTE BY ORAL ONCE DAILY ONCE DAILY ROUTE ONCE AT BEDTIME AT BEDTIME DAILY AT NEEDED NEEDED BEDTIME NEEDED Eliquis 5 Eliquis 5 No Eliquis 5 [facility] mg tablet 1 mg tablet 1 mg tablet Medical tablet bid tablet bid 1 tablet bid furosemide furosemide No furosemide [facility] 40 mg 40 mg 40 mg [facility] tablet Take tablet Take tablet 1 tablet 1 tablet Take 1 every day every day tablet by oral by oral every day route for route for by oral 14 days. 14 days. route for 14 days. gabapentin gabapentin No gabapentin [facility] 100 mg 100 mg 100 mg [facility] capsule capsule capsule Take 1 Take 1 Take 1 capsule 3 capsule 3 capsule 3 times a day times a day times a by oral by oral day by route for route for oral route 30 days. 30 days. for 30 days. insulin insulin No 5unit(s Q1D insulin [facility] via lispro lispro ) lispro Medical (U-100) 100 (U-100) 100 (U-100) unit/mL unit/mL 100 subcutaneou subcutaneou unit/mL s solution s solution subcutaneo Inject 5 Inject 5 us units every units every solution day by day by Inject 5 sub-q route sub-q route units with meals with meals every day for 30 for 30 by sub-q days. days. route with meals for 30 days. Lantus Lantus No 10unit( Q1D Lantus [facility] U-100 U-100 s) U-100 [facility] Insulin 100 Insulin 100 Insulin unit/mL unit/mL 100 subcutaneou subcutaneou unit/mL s solution s solution subcutaneo Inject 10 Inject 10 us units every units every solution day by day by Inject 10 sub-q route sub-q route units at bedtime. at bedtime. every day by sub-q route at bedtime. metformin metformin No metformin [facility] 850 mg 850 mg 850 mg [facility] tablet Take tablet Take tablet 1 tablet 1 tablet Take 1 twice a day twice a day tablet by oral by oral twice a route for route for day by 30 days. 30 days. oral route for 30 days. metoprolol metoprolol No .5 Q1D metoprolol [facility] succinate succinate succinate [facility] ER 25 mg ER 25 mg ER 25 mg tablet,exte tablet,exte tablet,ext nded nded ended release 24 release 24 release 24 hr Take 0.5 hr Take 0.5 hr Take tablets tablets 0.5 every day every day tablets by oral by oral every day route. route. by oral route. Tradjenta 5 Tradjenta 5 No Tradjenta [facility] mg tablet 1 mg tablet 1 5 mg M edical tab po tab po tablet 1 daily daily tab po daily trazodone trazodone No trazodone [facility] 150 mg 150 mg 150 mg Medical tablet 1 tablet 1 tablet 1 tablet po tablet po tablet po at bedtime at bedtime at bedtime Vitamin D3 Vitamin D3 No Vitamin D3 [facility] (cholecalci (cholecalci (cholecalc Medical ferol ferol iferol (vitamin (vitamin (vitamin de)) (OTC) de)) (OTC) de)) (OTC) tablet: tablet: tablet: 1000 units 1000 units 1000 units amt two amt two amt two tabs oral tabs oral tabs oral once a day once a day once a day atorvastati atorvastati No atorvastat [facility] n 40 mg n 40 mg in 40 mg Medic al tablet tablet tablet Lipitor- Lipitor- Lipitor- give 40mg give 40mg give 40mg tablet po tablet po tablet po daily daily daily baclofen 5 baclofen 5 No baclofen 5 [facility] mg tablet 1 mg tablet 1 mg tablet Medical tablet tid tablet tid 1 tablet tid Daily Daily No Daily [facility] Multivitami Multivitami Multivitam Medical n (Multivit n (Multivit in with with (Multivit min-folic min-folic with acid) acid) min-folic tablet tablet acid) 0.4mg amt: 0.4mg amt: tablet one tablet: one tablet: 0.4mg amt: give one give one one tab by tab by tablet: mouth once mouth once give one daily daily tab by mouth once daily divalproex divalproex No divalproex [facility] ER 250 mg ER 250 mg ER 250 mg Medical tablet,exte tablet,exte tablet,ext nded nded ended release 24 release 24 release 24 hr Take 1 hr Take 1 hr Take 1 tablet tablet tablet twice a day twice a day twice a by oral by oral day by route for route for oral route 30 days. 30 days. for 30 days. docusate docusate No docusate [facility] via sodium 100 sodium 100 sodium 100 Medical mg capsule mg capsule mg capsule (colace) (colace) (colace) TAKE 1 TAKE 1 TAKE 1 CAPSULE CAPSULE CAPSULE (100 MG) BY (100 MG) BY (100 MG) ORAL ROUTE ORAL ROUTE BY ORAL ONCE DAILY ONCE DAILY ROUTE ONCE AT BEDTIME AT BEDTIME DAILY AT NEEDED NEEDED BEDTIME NEEDED Eliquis 5 Eliquis 5 No Eliquis 5 [facility] mg tablet 1 mg tablet 1 mg tablet Medical tablet bid tablet bid 1 tablet bid furosemide furosemide No furosemide [facility] 40 mg 40 mg 40 mg Medical tablet Take tablet Take tablet 1 tablet 1 tablet Take 1 every day every day tablet by oral by oral every day route for route for by oral 14 days. 14 days. route for 14 days. gabapentin gabapentin No gabapentin [facility] 100 mg 100 mg 100 mg [facility] capsule capsule capsule Take 1 Take 1 Take 1 capsule 3 capsule 3 capsule 3 times a day times a day times a by oral by oral day by route for route for oral route 30 days. 30 days. for 30 days. insulin insulin No insulin [facility] lispro lispro lispro Medical (U-100) 100 (U-100) 100 (U-100) unit/mL unit/mL 100 subcutaneou subcutaneou unit/mL s solution s solution subcutaneo Inject 5 Inject 5 us units every units every solution day by day by Inject 5 sub-q route sub-q route units with meals with meals every day for 30 for 30 by sub-q days. days. route with meals for 30 days. Lantus Lantus No Lantus [facility] U-100 U-100 U-100 [facility] Insulin 100 Insulin 100 Insulin unit/mL unit/mL 100 subcutaneou subcutaneou unit/mL s solution s solution subcutaneo Inject 10 Inject 10 us units every units every solution day by day by Inject 10 sub-q route sub-q route units at bedtime. at bedtime. every day by sub-q route at bedtime. metformin metformin No metformin [facility] 850 mg 850 mg 850 mg [facility] tablet Take tablet Take tablet 1 tablet 1 tablet Take 1 twice a day twice a day tablet by oral by oral twice a route for route for day by 30 days. 30 days. oral route for 30 days. metoprolol metoprolol No .5 Q1D metoprolol [facility] succinate succinate succinate [facility] ER 25 mg ER 25 mg ER 25 mg tablet,exte tablet,exte tablet,ext nded nded ended release 24 release 24 release 24 hr Take 0.5 hr Take 0.5 hr Take tablets tablets 0.5 every day every day tablets by oral by oral every day route. route. by oral route. Tradjenta 5 Tradjenta 5 No Tradjenta [facility] mg tablet 1 mg tablet 1 5 mg M edical tab po tab po tablet 1 daily daily tab po daily trazodone trazodone No trazodone [facility] 150 mg 150 mg 150 mg Medical tablet 1 tablet 1 tablet 1 tablet po tablet po tablet po at bedtime at bedtime at bedtime Vitamin D3 Vitamin D3 No Vitamin D3 [facility] (cholecalci (cholecalci (cholecalc Medical ferol ferol iferol (vitamin (vitamin (vitamin de)) (OTC) de)) (OTC) de)) (OTC) tablet: tablet: tablet: 1000 units 1000 units 1000 units amt two amt two amt two tabs oral tabs oral tabs oral once a day once a day once a day atorvastati atorvastati No atorvastat [facility] n 40 mg n 40 mg in 40 mg Medic al tablet tablet tablet Lipitor- Lipitor- Lipitor- give 40mg give 40mg give 40mg tablet po tablet po tablet po daily daily daily baclofen 5 baclofen 5 No baclofen 5 [facility] mg tablet 1 mg tablet 1 mg tablet Medical tablet tid tablet tid 1 tablet tid Daily Daily No Daily [facility] Multivitami Multivitami Multivitam Medical n (Multivit n (Multivit in with with (Multivit min-folic min-folic with acid) acid) min-folic tablet tablet acid) 0.4mg amt: 0.4mg amt: tablet one tablet: one tablet: 0.4mg amt: give one give one one tab by tab by tablet: mouth once mouth once give one daily daily tab by mouth once daily divalproex divalproex No divalproex [facility] ER 250 mg ER 250 mg ER 250 mg Medical tablet,exte tablet,exte tablet,ext nded nded ended release 24 release 24 release 24 hr Take 1 hr Take 1 hr Take 1 tablet tablet tablet twice a day twice a day twice a by oral by oral day by route for route for oral route 30 days. 30 days. for 30 days. docusate docusate No docusate [facility] via sodium 100 sodium 100 sodium 100 Medical mg capsule mg capsule mg capsule (colace) (colace) (colace) TAKE 1 TAKE 1 TAKE 1 CAPSULE CAPSULE CAPSULE (100 MG) BY (100 MG) BY (100 MG) ORAL ROUTE ORAL ROUTE BY ORAL ONCE DAILY ONCE DAILY ROUTE ONCE AT BEDTIME AT BEDTIME DAILY AT NEEDED NEEDED BEDTIME NEEDED Eliquis 5 Eli[facility] 5 No Eliquis 5 [facility] mg tablet 1 mg tablet 1 mg tablet Medical tablet bid tablet bid 1 tablet bid furosemide furosemide No furosemide [facility] 40 mg 40 mg 40 mg Medical tablet Take tablet Take tablet 1 tablet 1 tablet Take 1 every day every day tablet by oral by oral every day route for route for by oral 14 days. 14 days. route for 14 days. gabapentin gabapentin No gabapentin [facility] 100 mg 100 mg 100 mg [facility] capsule capsule capsule Take 1 Take 1 Take 1 capsule 3 capsule 3 capsule 3 times a day times a day times a by oral by oral day by route for route for oral route 30 days. 30 days. for 30 days. insulin insulin No insulin [facility] lispro lispro lispro Medical (U-100) 100 (U-100) 100 (U-100) unit/mL unit/mL 100 subcutaneou subcutaneou unit/mL s solution s solution subcutaneo Inject 5 Inject 5 us units every units every solution day by day by Inject 5 sub-q route sub-q route units with meals with meals every day for 30 for 30 by sub-q days. days. route with meals for 30 days. Lantus Lantus No Lantus [facility] U-100 U-100 U-100 Medical Insulin 100 Insulin 100 Insulin unit/mL unit/mL 100 subcutaneou subcutaneou unit/mL s solution s solution subcutaneo Inject 10 Inject 10 us units every units every solution day by day by Inject 10 sub-q route sub-q route units at bedtime. at bedtime. every day by sub-q route at bedtime. metformin metformin No metformin [facility] 850 mg 850 mg 850 mg [facility] tablet Take tablet Take tablet 1 tablet 1 tablet Take 1 twice a day twice a day tablet by oral by oral twice a route for route for day by 30 days. 30 days. oral route for 30 days. metoprolol metoprolol No .5 Q1D metoprolol [facility] succinate succinate succinate [facility] ER 25 mg ER 25 mg ER 25 mg tablet,exte tablet,exte tablet,ext nded nded ended release 24 release 24 release 24 hr Take 0.5 hr Take 0.5 hr Take tablets tablets 0.5 every day every day tablets by oral by oral every day route. route. by oral route. Tradjenta 5 Tradjenta 5 No Tradjenta [facility] mg tablet 1 mg tablet 1 5 mg M edical tab po tab po tablet 1 daily daily tab po daily trazodone trazodone No trazodone [facility] 150 mg 150 mg 150 mg Medical tablet 1 tablet 1 tablet 1 tablet po tablet po tablet po at bedtime at bedtime at bedtime Vitamin D3 Vitamin D3 No Vitamin D3 [facility] (cholecalci (cholecalci (cholecalc Medical ferol ferol iferol (vitamin (vitamin (vitamin de)) (OTC) de)) (OTC) de)) (OTC) tablet: tablet: tablet: 1000 units 1000 units 1000 units amt two amt two amt two tabs oral tabs oral tabs oral once a day once a day once a day atorvastati atorvastati No atorvastat [facility] n 40 mg n 40 mg in 40 mg Medic al tablet tablet tablet Lipitor- Lipitor- Lipitor- give 40mg give 40mg give 40mg tablet po tablet po tablet po daily daily daily baclofen 5 baclofen 5 No baclofen 5 [facility] mg tablet 1 mg tablet 1 mg tablet Medical tablet tid tablet tid 1 tablet tid Basaglar Basaglar No Basaglar [facility] via KwikPen KwikPen KwikPen [facility] l U-100 U-100 U-100 Insulin 100 Insulin 100 Insulin unit/mL (3 unit/mL (3 100 mL) mL) unit/mL (3 subcutaneou subcutaneou mL) s s subcutaneo us Daily Daily No Daily [facility] Multivitami Multivitami Multivitam Medical n (Multivit n (Multivit in with with (Multivit min-folic min-folic with acid) acid) min-folic tablet tablet acid) 0.4mg amt: 0.4mg amt: tablet one tablet: one tablet: 0.4mg amt: give one give one one tab by tab by tablet: mouth once mouth once give one daily daily tab by mouth once daily divalproex divalproex No divalproex [facility] ER 250 mg ER 250 mg ER 250 mg Medical tablet,exte tablet,exte tablet,ext nded nded ended release 24 release 24 release 24 hr Take 1 hr Take 1 hr Take 1 tablet tablet tablet twice a day twice a day twice a by oral by oral day by route for route for oral route 30 days. 30 days. for 30 days. docusate docusate No docusate [facility] via sodium 100 sodium 100 sodium 100 Medical mg capsule mg capsule mg capsule (colace) (colace) (colace) TAKE 1 TAKE 1 TAKE 1 CAPSULE CAPSULE CAPSULE (100 MG) BY (100 MG) BY (100 MG) ORAL ROUTE ORAL ROUTE BY ORAL ONCE DAILY ONCE DAILY ROUTE ONCE AT BEDTIME AT BEDTIME DAILY AT NEEDED NEEDED BEDTIME NEEDED Eliquis 5 Eli[facility] 5 No Eliquis 5 [facility] mg tablet 1 mg tablet 1 mg tablet Medical tablet bid tablet bid 1 tablet bid furosemide furosemide No furosemide [facility] 40 mg 40 mg 40 mg [facility] tablet Take tablet Take tablet 1 tablet 1 tablet Take 1 every day every day tablet by oral by oral every day route for route for by oral 14 days. 14 days. route for 14 days. gabapentin gabapentin No gabapentin [facility] 100 mg 100 mg 100 mg [facility] capsule capsule capsule Take 1 Take 1 Take 1 capsule 3 capsule 3 capsule 3 times a day times a day times a by oral by oral day by route for route for oral route 30 days. 30 days. for 30 days. Humalog Humalog No Humalog [facility] U-100 U-100 U-100 Medical Insulin 100 Insulin 100 Insulin unit/mL unit/mL 100 subcutaneou subcutaneou unit/mL s solution s solution subcutaneo Inject 5 Inject 5 us units every units every solution day by day by Inject 5 sub-q route sub-q route units with meals with meals every day for 30 for 30 by sub-q days. days. route with meals for 30 days. Lantus Lantus No Lantus [facility] U-100 U-100 U-100 Medical Insulin 100 Insulin 100 Insulin unit/mL unit/mL 100 subcutaneou subcutaneou unit/mL s solution s solution subcutaneo Inject 10 Inject 10 us units every units every solution day by day by Inject 10 sub-q route sub-q route units at bedtime. at bedtime. every day by sub-q route at bedtime. metformin metformin No metformin [facility] 850 mg 850 mg 850 mg Medical tablet Take tablet Take tablet 1 tablet 1 tablet Take 1 twice a day twice a day tablet by oral by oral twice a route for route for day by 30 days. 30 days. oral route for 30 days. metoprolol metoprolol No metoprolol [facility] succinate succinate succinate [facility] ER 25 mg ER 25 mg ER 25 mg tablet,exte tablet,exte tablet,ext nded nded ended release 24 release 24 release 24 hr Take 0.5 hr Take 0.5 hr Take tablets tablets 0.5 every day every day tablets by oral by oral every day route. route. by oral route. Tradjenta 5 Tradjenta 5 No Tradjenta [facility] mg tablet 1 mg tablet 1 5 mg M edical tab po tab po tablet 1 daily daily tab po daily trazodone trazodone No trazodone [facility] 150 mg 150 mg 150 mg Medical tablet 1 tablet 1 tablet 1 tablet po tablet po tablet po at bedtime at bedtime at bedtime Vitamin D3 Vitamin D3 No Vitamin D3 [facility] (cholecalci (cholecalci (cholecalc Medical ferol ferol iferol (vitamin (vitamin (vitamin de)) (OTC) de)) (OTC) de)) (OTC) tablet: tablet: tablet: 1000 units 1000 units 1000 units amt two amt two amt two tabs oral tabs oral tabs oral once a day once a day once a day atorvastati atorvastati No atorvastat [facility] n 40 mg n 40 mg in 40 mg Medic al tablet tablet tablet Lipitor- Lipitor- Lipitor- give 40mg give 40mg give 40mg tablet po tablet po tablet po daily daily daily baclofen 5 baclofen 5 No baclofen 5 [facility] mg tablet 1 mg tablet 1 mg tablet Medical tablet tid tablet tid 1 tablet tid Basaglar Basaglar No Basaglar [facility] via KwikPen KwikPen KwikPen [facility] l U-100 U-100 U-100 Insulin 100 Insulin 100 Insulin unit/mL (3 unit/mL (3 100 mL) mL) unit/mL (3 subcutaneou subcutaneou mL) s s subcutaneo us Daily Daily No Daily [facility] Multivitami Multivitami Multivitam Medical n (Multivit n (Multivit in with with (Multivit min-folic min-folic with acid) acid) min-folic tablet tablet acid) 0.4mg amt: 0.4mg amt: tablet one tablet: one tablet: 0.4mg amt: give one give one one tab by tab by tablet: mouth once mouth once give one daily daily tab by mouth once daily divalproex divalproex No divalproex [facility] ER 250 mg ER 250 mg ER 250 mg Medical tablet,exte tablet,exte tablet,ext nded nded ended release 24 release 24 release 24 hr Take 1 hr Take 1 hr Take 1 tablet tablet tablet twice a day twice a day twice a by oral by oral day by route for route for oral route 30 days. 30 days. for 30 days. docusate docusate No docusate [facility] via sodium 100 sodium 100 sodium 100 Medical mg capsule mg capsule mg capsule (colace) (colace) (colace) TAKE 1 TAKE 1 TAKE 1 CAPSULE CAPSULE CAPSULE (100 MG) BY (100 MG) BY (100 MG) ORAL ROUTE ORAL ROUTE BY ORAL ONCE DAILY ONCE DAILY ROUTE ONCE AT BEDTIME AT BEDTIME DAILY AT NEEDED NEEDED BEDTIME NEEDED Eliquis 5 Eli[facility] 5 No Eliquis 5 [facility] mg tablet 1 mg tablet 1 mg tablet Medical tablet bid tablet bid 1 tablet bid furosemide furosemide No furosemide [facility] 40 mg 40 mg 40 mg Medical tablet Take tablet Take tablet 1 tablet 1 tablet Take 1 every day every day tablet by oral by oral every day route for route for by oral 14 days. 14 days. route for 14 days. gabapentin gabapentin No gabapentin [facility] 100 mg 100 mg 100 mg Medical capsule capsule capsule Take 1 Take 1 Take 1 capsule 3 capsule 3 capsule 3 times a day times a day times a by oral by oral day by route for route for oral route 30 days. 30 days. for 30 days. Humalog Humalog No Humalog [facility] U-100 U-100 U-100 Medical Insulin 100 Insulin 100 Insulin unit/mL unit/mL 100 subcutaneou subcutaneou unit/mL s solution s solution subcutaneo Inject 5 Inject 5 us units every units every solution day by day by Inject 5 sub-q route sub-q route units with meals with meals every day for 30 for 30 by sub-q days. days. route with meals for 30 days. Lantus Lantus No Lantus [facility] U-100 U-100 U-100 Medical Insulin 100 Insulin 100 Insulin unit/mL unit/mL 100 subcutaneou subcutaneou unit/mL s solution s solution subcutaneo Inject 10 Inject 10 us units every units every solution day by day by Inject 10 sub-q route sub-q route units at bedtime. at bedtime. every day by sub-q route at bedtime. metformin metformin No metformin [facility] 850 mg 850 mg 850 mg [facility] tablet Take tablet Take tablet 1 tablet 1 tablet Take 1 twice a day twice a day tablet by oral by oral twice a route for route for day by 30 days. 30 days. oral route for 30 days. metoprolol metoprolol No metoprolol [facility] succinate succinate succinate [facility] ER 25 mg ER 25 mg ER 25 mg tablet,exte tablet,exte tablet,ext nded nded ended release 24 release 24 release 24 hr Take 0.5 hr Take 0.5 hr Take tablets tablets 0.5 every day every day tablets by oral by oral every day route. route. by oral route. Tradjenta 5 Tradjenta 5 No Tradjenta [facility] mg tablet 1 mg tablet 1 5 mg M edical tab po tab po tablet 1 daily daily tab po daily trazodone trazodone No trazodone [facility] 150 mg 150 mg 150 mg Medical tablet 1 tablet 1 tablet 1 tablet po tablet po tablet po at bedtime at bedtime at bedtime Vitamin D3 Vitamin D3 No Vitamin D3 [facility] (cholecalci (cholecalci (cholecalc Medical ferol ferol iferol (vitamin (vitamin (vitamin de)) (OTC) de)) (OTC) de)) (OTC) tablet: tablet: tablet: 1000 units 1000 units 1000 units amt two amt two amt two tabs oral tabs oral tabs oral once a day once a day once a day atorvastati atorvastati No atorvastat [facility] n 40 mg n 40 mg in 40 mg Medic al tablet tablet tablet Lipitor- Lipitor- Lipitor- give 40mg give 40mg give 40mg tablet po tablet po tablet po daily daily daily baclofen 5 baclofen 5 No baclofen 5 [facility] mg tablet 1 mg tablet 1 mg tablet Medical tablet tid tablet tid 1 tablet tid Basaglar Basaglar No Basaglar [facility] via KwikPen KwikPen KwikPen [facility] l U-100 U-100 U-100 Insulin 100 Insulin 100 Insulin unit/mL (3 unit/mL (3 100 mL) mL) unit/mL (3 subcutaneou subcutaneou mL) s s subcutaneo us Daily Daily No Daily [facility] Multivitami Multivitami Multivitam Medical n (Multivit n (Multivit in with with (Multivit min-folic min-folic with acid) acid) min-folic tablet tablet acid) 0.4mg amt: 0.4mg amt: tablet one tablet: one tablet: 0.4mg amt: give one give one one tab by tab by tablet: mouth once mouth once give one daily daily tab by mouth once daily divalproex divalproex No divalproex [facility] ER 250 mg ER 250 mg ER 250 mg Medical tablet,exte tablet,exte tablet,ext nded nded ended release 24 release 24 release 24 hr Take 1 hr Take 1 hr Take 1 tablet tablet tablet twice a day twice a day twice a by oral by oral day by route for route for oral route 30 days. 30 days. for 30 days. docusate docusate No docusate [facility] via sodium 100 sodium 100 sodium 100 Medical mg capsule mg capsule mg capsule (colace) (colace) (colace) TAKE 1 TAKE 1 TAKE 1 CAPSULE CAPSULE CAPSULE (100 MG) BY (100 MG) BY (100 MG) ORAL ROUTE ORAL ROUTE BY ORAL ONCE DAILY ONCE DAILY ROUTE ONCE AT BEDTIME AT BEDTIME DAILY AT NEEDED NEEDED BEDTIME NEEDED Eliquis 5 Eliquis 5 No Eliquis 5 [facility] mg tablet 1 mg tablet 1 mg tablet Medical tablet bid tablet bid 1 tablet bid furosemide furosemide No furosemide [facility] 40 mg 40 mg 40 mg [facility] tablet Take tablet Take tablet 1 tablet 1 tablet Take 1 every day every day tablet by oral by oral every day route for route for by oral 14 days. 14 days. route for 14 days. gabapentin gabapentin No gabapentin [facility] 100 mg 100 mg 100 mg [facility] capsule capsule capsule Take 1 Take 1 Take 1 capsule 3 capsule 3 capsule 3 times a day times a day times a by oral by oral day by route for route for oral route 30 days. 30 days. for 30 days. Humalog Humalog No Humalog [facility] U-100 U-100 U-100 [facility] Insulin 100 Insulin 100 Insulin unit/mL unit/mL 100 subcutaneou subcutaneou unit/mL s solution s solution subcutaneo Inject 5 Inject 5 us units every units every solution day by day by Inject 5 sub-q route sub-q route units with meals with meals every day for 30 for 30 by sub-q days. days. route with meals for 30 days. Lantus Lantus No Lantus [facility] U-100 U-100 U-100 [facility] Insulin 100 Insulin 100 Insulin unit/mL unit/mL 100 subcutaneou subcutaneou unit/mL s solution s solution subcutaneo Inject 10 Inject 10 us units every units every solution day by day by Inject 10 sub-q route sub-q route units at bedtime. at bedtime. every day by sub-q route at bedtime. metformin metformin No metformin [facility] 850 mg 850 mg 850 mg [facility] tablet Take tablet Take tablet 1 tablet 1 tablet Take 1 twice a day twice a day tablet by oral by oral twice a route for route for day by 30 days. 30 days. oral route for 30 days. metoprolol metoprolol No metoprolol [facility] succinate succinate succinate [facility] ER 25 mg ER 25 mg ER 25 mg tablet,exte tablet,exte tablet,ext nded nded ended release 24 release 24 release 24 hr Take 0.5 hr Take 0.5 hr Take tablets tablets 0.5 every day every day tablets by oral by oral every day route. route. by oral route. Tradjenta 5 Tradjenta 5 No Tradjenta [facility] mg tablet 1 mg tablet 1 5 mg M edical tab po tab po tablet 1 daily daily tab po daily trazodone trazodone No trazodone [facility] 100 mg 100 mg 100 mg [facility] tablet Take tablet Take tablet 2 tablets 2 tablets Take 2 every day every day tablets by oral by oral every day route at route at by oral bedtime for bedtime for route at 30 days. 30 days. bedtime for 30 days. Vitamin D3 Vitamin D3 No Vitamin D3 [facility] (cholecalci (cholecalci (cholecalc Medical ferol ferol iferol (vitamin (vitamin (vitamin de)) (OTC) de)) (OTC) de)) (OTC) tablet: tablet: tablet: 1000 units 1000 units 1000 units amt two amt two amt two tabs oral tabs oral tabs oral once a day once a day once a day atorvastati atorvastati No atorvastat [facility] n 40 mg n 40 mg in 40 mg Medic al tablet tablet tablet Lipitor- Lipitor- Lipitor- give 40mg give 40mg give 40mg tablet po tablet po tablet po daily daily daily baclofen 5 baclofen 5 No baclofen 5 [facility] mg tablet 1 mg tablet 1 mg tablet Medical tablet tid tablet tid 1 tablet tid Basaglar Basaglar No Basaglar [facility] via KwikPen KwikPen KwikPen [facility] l U-100 U-100 U-100 Insulin 100 Insulin 100 Insulin unit/mL (3 unit/mL (3 100 mL) mL) unit/mL (3 subcutaneou subcutaneou mL) s s subcutaneo us Daily Daily No Daily [facility] Multivitami Multivitami Multivitam Medical n (Multivit n (Multivit in with with (Multivit min-folic min-folic with acid) acid) min-folic tablet tablet acid) 0.4mg amt: 0.4mg amt: tablet one tablet: one tablet: 0.4mg amt: give one give one one tab by tab by tablet: mouth once mouth once give one daily daily tab by mouth once daily divalproex divalproex No divalproex [facility] ER 250 mg ER 250 mg ER 250 mg Medical tablet,exte tablet,exte tablet,ext nded nded ended release 24 release 24 release 24 hr Take 1 hr Take 1 hr Take 1 tablet tablet tablet twice a day twice a day twice a by oral by oral day by route for route for oral route 30 days. 30 days. for 30 days. docusate docusate No docusate [facility] via sodium 100 sodium 100 sodium 100 Medical mg capsule mg capsule mg capsule (colace) (colace) (colace) TAKE 1 TAKE 1 TAKE 1 CAPSULE CAPSULE CAPSULE (100 MG) BY (100 MG) BY (100 MG) ORAL ROUTE ORAL ROUTE BY ORAL ONCE DAILY ONCE DAILY ROUTE ONCE AT BEDTIME AT BEDTIME DAILY AT NEEDED NEEDED BEDTIME NEEDED Eliquis 5 Eli[facility] 5 No Eliquis 5 [facility] mg tablet 1 mg tablet 1 mg tablet Medical tablet bid tablet bid 1 tablet bid furosemide furosemide No furosemide [facility] 40 mg 40 mg 40 mg Medical tablet Take tablet Take tablet 1 tablet 1 tablet Take 1 every day every day tablet by oral by oral every day route for route for by oral 14 days. 14 days. route for 14 days. gabapentin gabapentin No gabapentin [facility] 100 mg 100 mg 100 mg [facility] capsule capsule capsule Take 1 Take 1 Take 1 capsule 3 capsule 3 capsule 3 times a day times a day times a by oral by oral day by route for route for oral route 30 days. 30 days. for 30 days. Humalog Humalog No Humalog [facility] U-100 U-100 U-100 [facility] Insulin 100 Insulin 100 Insulin unit/mL unit/mL 100 subcutaneou subcutaneou unit/mL s solution s solution subcutaneo Inject 5 Inject 5 us units every units every solution day by day by Inject 5 sub-q route sub-q route units with meals with meals every day for 30 for 30 by sub-q days. days. route with meals for 30 days. Lantus Lantus No Lantus [facility] U-100 U-100 U-100 [facility] Insulin 100 Insulin 100 Insulin unit/mL unit/mL 100 subcutaneou subcutaneou unit/mL s solution s solution subcutaneo Inject 10 Inject 10 us units every units every solution day by day by Inject 10 sub-q route sub-q route units at bedtime. at bedtime. every day by sub-q route at bedtime. metformin metformin No metformin [facility] 850 mg 850 mg 850 mg [facility] tablet Take tablet Take tablet 1 tablet 1 tablet Take 1 twice a day twice a day tablet by oral by oral twice a route for route for day by 30 days. 30 days. oral route for 30 days. metoprolol metoprolol No metoprolol [facility] succinate succinate succinate [facility] ER 25 mg ER 25 mg ER 25 mg tablet,exte tablet,exte tablet,ext nded nded ended release 24 release 24 release 24 hr Take 0.5 hr Take 0.5 hr Take tablets tablets 0.5 every day every day tablets by oral by oral every day route. route. by oral route. Tradjenta 5 Tradjenta 5 No Tradjenta [facility] mg tablet 1 mg tablet 1 5 mg M edical tab po tab po tablet 1 daily daily tab po daily trazodone trazodone No trazodone [facility] 100 mg 100 mg 100 mg [facility] tablet Take tablet Take tablet 2 tablets 2 tablets Take 2 every day every day tablets by oral by oral every day route at route at by oral bedtime for bedtime for route at 30 days. 30 days. bedtime for 30 days. Vitamin D3 Vitamin D3 No Vitamin D3 [facility] (cholecalci (cholecalci (cholecalc Medical ferol ferol iferol (vitamin (vitamin (vitamin de)) (OTC) de)) (OTC) de)) (OTC) tablet: tablet: tablet: 1000 units 1000 units 1000 units amt two amt two amt two tabs oral tabs oral tabs oral once a day once a day once a day atorvastati atorvastati No atorvastat [facility] n 40 mg n 40 mg in 40 mg Medic al tablet tablet tablet Lipitor- Lipitor- Lipitor- give 40mg give 40mg give 40mg tablet po tablet po tablet po daily daily daily baclofen 5 baclofen 5 No baclofen 5 [facility] mg tablet 1 mg tablet 1 mg tablet Medical tablet tid tablet tid 1 tablet tid Basaglar Basaglar No Basaglar [facility] via KwikPen KwikPen KwikPen [facility] l U-100 U-100 U-100 Insulin 100 Insulin 100 Insulin unit/mL (3 unit/mL (3 100 mL) mL) unit/mL (3 subcutaneou subcutaneou mL) s s subcutaneo us Daily Daily No Daily [facility] Multivitami Multivitami Multivitam Medical n (Multivit n (Multivit in with with (Multivit min-folic min-folic with acid) acid) min-folic tablet tablet acid) 0.4mg amt: 0.4mg amt: tablet one tablet: one tablet: 0.4mg amt: give one give one one tab by tab by tablet: mouth once mouth once give one daily daily tab by mouth once daily divalproex divalproex No divalproex [facility] ER 250 mg ER 250 mg ER 250 mg Medical tablet,exte tablet,exte tablet,ext nded nded ended release 24 release 24 release 24 hr Take 1 hr Take 1 hr Take 1 tablet tablet tablet twice a day twice a day twice a by oral by oral day by route for route for oral route 30 days. 30 days. for 30 days. docusate docusate No docusate [facility] via sodium 100 sodium 100 sodium 100 Medical mg capsule mg capsule mg capsule (colace) (colace) (colace) TAKE 1 TAKE 1 TAKE 1 CAPSULE CAPSULE CAPSULE (100 MG) BY (100 MG) BY (100 MG) ORAL ROUTE ORAL ROUTE BY ORAL ONCE DAILY ONCE DAILY ROUTE ONCE AT BEDTIME AT BEDTIME DAILY AT NEEDED NEEDED BEDTIME NEEDED Eliquis 5 Eli[facility] 5 No Eliquis 5 [facility] mg tablet 1 mg tablet 1 mg tablet Medical tablet bid tablet bid 1 tablet bid furosemide furosemide No furosemide [facility] 40 mg 40 mg 40 mg [facility] tablet Take tablet Take tablet 1 tablet 1 tablet Take 1 every day every day tablet by oral by oral every day route for route for by oral 14 days. 14 days. route for 14 days. gabapentin gabapentin No gabapentin [facility] 100 mg 100 mg 100 mg [facility] capsule capsule capsule Take 1 Take 1 Take 1 capsule 3 capsule 3 capsule 3 times a day times a day times a by oral by oral day by route for route for oral route 30 days. 30 days. for 30 days. Humalog Humalog No Humalog [facility] U-100 U-100 U-100 [facility] Insulin 100 Insulin 100 Insulin unit/mL unit/mL 100 subcutaneou subcutaneou unit/mL s solution s solution subcutaneo Inject 5 Inject 5 us units every units every solution day by day by Inject 5 sub-q route sub-q route units with meals with meals every day for 30 for 30 by sub-q days. days. route with meals for 30 days. Lantus Lantus No Lantus [facility] U-100 U-100 U-100 [facility] Insulin 100 Insulin 100 Insulin unit/mL unit/mL 100 subcutaneou subcutaneou unit/mL s solution s solution subcutaneo Inject 10 Inject 10 us units every units every solution day by day by Inject 10 sub-q route sub-q route units at bedtime. at bedtime. every day by sub-q route at bedtime. metformin metformin No metformin [facility] 850 mg 850 mg 850 mg [facility] tablet Take tablet Take tablet 1 tablet 1 tablet Take 1 twice a day twice a day tablet by oral by oral twice a route for route for day by 30 days. 30 days. oral route for 30 days. metoprolol metoprolol No metoprolol [facility] succinate succinate succinate [facility] ER 25 mg ER 25 mg ER 25 mg tablet,exte tablet,exte tablet,ext nded nded ended release 24 release 24 release 24 hr Take 0.5 hr Take 0.5 hr Take tablets tablets 0.5 every day every day tablets by oral by oral every day route. route. by oral route. Tradjenta 5 Tradjenta 5 No Tradjenta [facility] mg tablet 1 mg tablet 1 5 mg M edical tab po tab po tablet 1 daily daily tab po daily tramadol 50 tramadol 50 No 1 BID tramadol [facility] mg tablet mg tablet 50 mg Medi jennifer Take 1 Take 1 tablet tablet tablet Take 1 twice a day twice a day tablet by oral by oral twice a route as route as day by needed for needed for oral route 10 days. 10 days. as needed for 10 days. trazodone trazodone No trazodone [facility] 100 mg 100 mg 100 mg [facility] tablet Take tablet Take tablet 2 tablets 2 tablets Take 2 every day every day tablets by oral by oral every day route at route at by oral bedtime for bedtime for route at 30 days. 30 days. bedtime for 30 days. Vitamin D3 Vitamin D3 No Vitamin D3 [facility] (cholecalci (cholecalci (cholecalc Medical ferol ferol iferol (vitamin (vitamin (vitamin de)) (OTC) de)) (OTC) de)) (OTC) tablet: tablet: tablet: 1000 units 1000 units 1000 units amt two amt two amt two tabs oral tabs oral tabs oral once a day once a day once a day atorvastati atorvastati No atorvastat [facility] n 40 mg n 40 mg in 40 mg Medic al tablet tablet tablet Lipitor- Lipitor- Lipitor- give 40mg give 40mg give 40mg tablet po tablet po tablet po daily daily daily baclofen 5 baclofen 5 No baclofen 5 [facility] mg tablet 1 mg tablet 1 mg tablet Medical tablet tid tablet tid 1 tablet tid Daily Daily No Daily [facility] Multivitami Multivitami Multivitam Medical n (Multivit n (Multivit in with with (Multivit min-folic min-folic with acid) acid) min-folic tablet tablet acid) 0.4mg amt: 0.4mg amt: tablet one tablet: one tablet: 0.4mg amt: give one give one one tab by tab by tablet: mouth once mouth once give one daily daily tab by mouth once daily divalproex divalproex No divalproex [facility] ER 250 mg ER 250 mg ER 250 mg Medical tablet,exte tablet,exte tablet,ext nded nded ended release 24 release 24 release 24 hr Take 1 hr Take 1 hr Take 1 tablet tablet tablet twice a day twice a day twice a by oral by oral day by route for route for oral route 30 days. 30 days. for 30 days. docusate docusate No docusate [facility] via sodium 100 sodium 100 sodium 100 Medical mg capsule mg capsule mg capsule (colace) (colace) (colace) TAKE 1 TAKE 1 TAKE 1 CAPSULE CAPSULE CAPSULE (100 MG) BY (100 MG) BY (100 MG) ORAL ROUTE ORAL ROUTE BY ORAL ONCE DAILY ONCE DAILY ROUTE ONCE AT BEDTIME AT BEDTIME DAILY AT NEEDED NEEDED BEDTIME NEEDED Eliquis 5 Eli[facility] 5 No Eliquis 5 [facility] mg tablet 1 mg tablet 1 mg tablet Medical tablet bid tablet bid 1 tablet bid furosemide furosemide No furosemide [facility] 40 mg 40 mg 40 mg Medical tablet Take tablet Take tablet 1 tablet 1 tablet Take 1 every day every day tablet by oral by oral every day route for route for by oral 14 days. 14 days. route for 14 days. gabapentin gabapentin No gabapentin [facility] 100 mg 100 mg 100 mg [facility] capsule capsule capsule Take 1 Take 1 Take 1 capsule 3 capsule 3 capsule 3 times a day times a day times a by oral by oral day by route for route for oral route 30 days. 30 days. for 30 days. Humalog Humalog No Humalog [facility] U-100 U-100 U-100 Medical Insulin 100 Insulin 100 Insulin unit/mL unit/mL 100 subcutaneou subcutaneou unit/mL s solution s solution subcutaneo Inject 5 Inject 5 us units every units every solution day by day by Inject 5 sub-q route sub-q route units with meals with meals every day for 30 for 30 by sub-q days. days. route with meals for 30 days. Lantus Lantus No Lantus [facility] Solostar Solostar Solostar Med ical U-100 U-100 U-100 Insulin 100 Insulin 100 Insulin unit/mL (3 unit/mL (3 100 mL) mL) unit/mL (3 subcutaneou subcutaneou mL) s pen s pen subcutaneo us pen Lantus Lantus No Lantus [facility] U-100 U-100 U-100 Medical Insulin 100 Insulin 100 Insulin unit/mL unit/mL 100 subcutaneou subcutaneou unit/mL s solution s solution subcutaneo Inject 10 Inject 10 us units every units every solution day by day by Inject 10 sub-q route sub-q route units at bedtime. at bedtime. every day by sub-q route at bedtime. metformin metformin No metformin [facility] 850 mg 850 mg 850 mg [facility] tablet Take tablet Take tablet 1 tablet 1 tablet Take 1 twice a day twice a day tablet by oral by oral twice a route for route for day by 30 days. 30 days. oral route for 30 days. metoprolol metoprolol No metoprolol [facility] succinate succinate succinate [facility] ER 25 mg ER 25 mg ER 25 mg tablet,exte tablet,exte tablet,ext nded nded ended release 24 release 24 release 24 hr Take 0.5 hr Take 0.5 hr Take tablets tablets 0.5 every day every day tablets by oral by oral every day route. route. by oral route. Tradjenta 5 Tradjenta 5 No Tradjenta [facility] mg tablet 1 mg tablet 1 5 mg M edical tab po tab po tablet 1 daily daily tab po daily tramadol 50 tramadol 50 No tramadol [facility] mg tablet mg tablet 50 mg Medi jennifer Take 1 Take 1 tablet tablet tablet Take 1 twice a day twice a day tablet by oral by oral twice a route as route as day by needed for needed for oral route 10 days. 10 days. as needed for 10 days. trazodone trazodone No trazodone [facility] 100 mg 100 mg 100 mg [facility] tablet Take tablet Take tablet 2 tablets 2 tablets Take 2 every day every day tablets by oral by oral every day route at route at by oral bedtime for bedtime for route at 30 days. 30 days. bedtime for 30 days. Vitamin D3 Vitamin D3 No Vitamin D3 [facility] (cholecalci (cholecalci (cholecalc Medical ferol ferol iferol (vitamin (vitamin (vitamin de)) (OTC) de)) (OTC) de)) (OTC) tablet: tablet: tablet: 1000 units 1000 units 1000 units amt two amt two amt two tabs oral tabs oral tabs oral once a day once a day once a day atorvastati atorvastati No atorvastat [facility] n 40 mg n 40 mg in 40 mg Medic al tablet tablet tablet Lipitor- Lipitor- Lipitor- give 40mg give 40mg give 40mg tablet po tablet po tablet po daily daily daily baclofen 5 baclofen 5 No baclofen 5 [facility] mg tablet 1 mg tablet 1 mg tablet Medical tablet tid tablet tid 1 tablet tid Daily Daily No Daily [facility] Multivitami Multivitami Multivitam Medical n (Multivit n (Multivit in with with (Multivit min-folic min-folic with acid) acid) min-folic tablet tablet acid) 0.4mg amt: 0.4mg amt: tablet one tablet: one tablet: 0.4mg amt: give one give one one tab by tab by tablet: mouth once mouth once give one daily daily tab by mouth once daily Depakote Depakote No 1 Q1D Depakote [facility] via 500 mg 500 mg 500 mg Medical tablet,yoselyn tablet,yoselyn tablet,del yed release yed release ayed Take 1 Take 1 release tablet tablet Take 1 every day every day tablet by oral by oral every day route at route at by oral bedtime. bedtime. route at bedtime. divalproex divalproex No divalproex [facility] ER 250 mg ER 250 mg ER 250 mg Medical tablet,exte tablet,exte tablet,ext nded nded ended release 24 release 24 release 24 hr Take 1 hr Take 1 hr Take 1 tablet tablet tablet twice a day twice a day twice a by oral by oral day by route for route for oral route 30 days. 30 days. for 30 days. divalproex divalproex No divalproex [facility] ER 500 mg ER 500 mg ER 500 mg Medical tablet,exte tablet,exte tablet,ext nded nded ended release 24 release 24 release 24 hr hr hr docusate docusate No docusate [facility] via sodium 100 sodium 100 sodium 100 Medical mg capsule mg capsule mg capsule (colace) (colace) (colace) TAKE 1 TAKE 1 TAKE 1 CAPSULE CAPSULE CAPSULE (100 MG) BY (100 MG) BY (100 MG) ORAL ROUTE ORAL ROUTE BY ORAL ONCE DAILY ONCE DAILY ROUTE ONCE AT BEDTIME AT BEDTIME DAILY AT NEEDED NEEDED BEDTIME NEEDED Eliquis 5 Eli[facility] 5 No Eliquis 5 [facility] mg tablet 1 mg tablet 1 mg tablet Medical tablet bid tablet bid 1 tablet bid furosemide furosemide No furosemide [facility] 40 mg 40 mg 40 mg Medical tablet Take tablet Take tablet 1 tablet 1 tablet Take 1 every day every day tablet by oral by oral every day route for route for by oral 14 days. 14 days. route for 14 days. gabapentin gabapentin No gabapentin [facility] 100 mg 100 mg 100 mg Medical capsule capsule capsule Take 1 Take 1 Take 1 capsule 3 capsule 3 capsule 3 times a day times a day times a by oral by oral day by route for route for oral route 30 days. 30 days. for 30 days. Humalog Humalog No Humalog [facility] U-100 U-100 U-100 Medical Insulin 100 Insulin 100 Insulin unit/mL unit/mL 100 subcutaneou subcutaneou unit/mL s solution s solution subcutaneo Inject 5 Inject 5 us units every units every solution day by day by Inject 5 sub-q route sub-q route units with meals with meals every day for 30 for 30 by sub-q days. days. route with meals for 30 days. Lantus Lantus No Lantus [facility] Solostar Solostar Solostar Med ical U-100 U-100 U-100 Insulin 100 Insulin 100 Insulin unit/mL (3 unit/mL (3 100 mL) mL) unit/mL (3 subcutaneou subcutaneou mL) s pen s pen subcutaneo us pen Lantus Lantus No Lantus [facility] U-100 U-100 U-100 Medical Insulin 100 Insulin 100 Insulin unit/mL unit/mL 100 subcutaneou subcutaneou unit/mL s solution s solution subcutaneo Inject 10 Inject 10 us units every units every solution day by day by Inject 10 sub-q route sub-q route units at bedtime. at bedtime. every day by sub-q route at bedtime. metformin metformin No metformin [facility] 850 mg 850 mg 850 mg [facility] tablet Take tablet Take tablet 1 tablet 1 tablet Take 1 twice a day twice a day tablet by oral by oral twice a route for route for day by 30 days. 30 days. oral route for 30 days. metoprolol metoprolol No metoprolol [facility] succinate succinate succinate [facility] ER 25 mg ER 25 mg ER 25 mg tablet,exte tablet,exte tablet,ext nded nded ended release 24 release 24 release 24 hr Take 0.5 hr Take 0.5 hr Take tablets tablets 0.5 every day every day tablets by oral by oral every day route. route. by oral route. Tradjenta 5 Tradjenta 5 No Tradjenta [facility] mg tablet 1 mg tablet 1 5 mg M edical tab po tab po tablet 1 daily daily tab po daily tramadol 50 tramadol 50 No tramadol [facility] mg tablet mg tablet 50 mg Medi jennifer Take 1 Take 1 tablet tablet tablet Take 1 twice a day twice a day tablet by oral by oral twice a route as route as day by needed for needed for oral route 10 days. 10 days. as needed for 10 days. trazodone trazodone No trazodone [facility] 100 mg 100 mg 100 mg [facility] tablet Take tablet Take tablet 2 tablets 2 tablets Take 2 every day every day tablets by oral by oral every day route at route at by oral bedtime for bedtime for route at 30 days. 30 days. bedtime for 30 days. Vitamin D3 Vitamin D3 No Vitamin D3 [facility] (cholecalci (cholecalci (cholecalc Medical ferol ferol iferol (vitamin (vitamin (vitamin de)) (OTC) de)) (OTC) de)) (OTC) tablet: tablet: tablet: 1000 units 1000 units 1000 units amt two amt two amt two tabs oral tabs oral tabs oral once a day once a day once a day atorvastati atorvastati No atorvastat [facility] n 40 mg n 40 mg in 40 mg Medic al tablet tablet tablet Lipitor- Lipitor- Lipitor- give 40mg give 40mg give 40mg tablet po tablet po tablet po daily daily daily baclofen 5 baclofen 5 No baclofen 5 [facility] mg tablet 1 mg tablet 1 mg tablet Medical tablet tid tablet tid 1 tablet tid Daily Daily No Daily [facility] Multivitami Multivitami Multivitam Medical n (Multivit n (Multivit in with with (Multivit min-folic min-folic with acid) acid) min-folic tablet tablet acid) 0.4mg amt: 0.4mg amt: tablet one tablet: one tablet: 0.4mg amt: give one give one one tab by tab by tablet: mouth once mouth once give one daily daily tab by mouth once daily Depakote Depakote No 1 Q1D Depakote [facility] via 500 mg 500 mg 500 mg Medical tablet,yoselyn tablet,yoselyn tablet,del yed release yed release ayed Take 1 Take 1 release tablet tablet Take 1 every day every day tablet by oral by oral every day route at route at by oral bedtime. bedtime. route at bedtime. divalproex divalproex No divalproex [facility] ER 250 mg ER 250 mg ER 250 mg Medical tablet,exte tablet,exte tablet,ext nded nded ended release 24 release 24 release 24 hr Take 1 hr Take 1 hr Take 1 tablet tablet tablet twice a day twice a day twice a by oral by oral day by route for route for oral route 30 days. 30 days. for 30 days. divalproex divalproex No divalproex [facility] ER 500 mg ER 500 mg ER 500 mg Medical tablet,exte tablet,exte tablet,ext nded nded ended release 24 release 24 release 24 hr hr hr docusate docusate No docusate [facility] via sodium 100 sodium 100 sodium 100 Medical mg capsule mg capsule mg capsule (colace) (colace) (colace) TAKE 1 TAKE 1 TAKE 1 CAPSULE CAPSULE CAPSULE (100 MG) BY (100 MG) BY (100 MG) ORAL ROUTE ORAL ROUTE BY ORAL ONCE DAILY ONCE DAILY ROUTE ONCE AT BEDTIME AT BEDTIME DAILY AT NEEDED NEEDED BEDTIME NEEDED Eliquis 5 Eliquis 5 No Eliquis 5 [facility] mg tablet 1 mg tablet 1 mg tablet Medical tablet bid tablet bid 1 tablet bid furosemide furosemide No furosemide [facility] 40 mg 40 mg 40 mg [facility] tablet Take tablet Take tablet 1 tablet 1 tablet Take 1 every day every day tablet by oral by oral every day route for route for by oral 14 days. 14 days. route for 14 days. gabapentin gabapentin No gabapentin [facility] 100 mg 100 mg 100 mg Medical capsule capsule capsule Take 1 Take 1 Take 1 capsule 3 capsule 3 capsule 3 times a day times a day times a by oral by oral day by route for route for oral route 30 days. 30 days. for 30 days. Humalog Humalog No Humalog [facility] U-100 U-100 U-100 [facility] Insulin 100 Insulin 100 Insulin unit/mL unit/mL 100 subcutaneou subcutaneou unit/mL s solution s solution subcutaneo Inject 5 Inject 5 us units every units every solution day by day by Inject 5 sub-q route sub-q route units with meals with meals every day for 30 for 30 by sub-q days. days. route with meals for 30 days. Lantus Lantus No Lantus [facility] Solostar Solostar Solostar Med ical U-100 U-100 U-100 Insulin 100 Insulin 100 Insulin unit/mL (3 unit/mL (3 100 mL) mL) unit/mL (3 subcutaneou subcutaneou mL) s pen s pen subcutaneo us pen Lantus Lantus No Lantus [facility] U-100 U-100 U-100 Medical Insulin 100 Insulin 100 Insulin unit/mL unit/mL 100 subcutaneou subcutaneou unit/mL s solution s solution subcutaneo Inject 10 Inject 10 us units every units every solution day by day by Inject 10 sub-q route sub-q route units at bedtime. at bedtime. every day by sub-q route at bedtime. metformin metformin No metformin [facility] 850 mg 850 mg 850 mg [facility] tablet Take tablet Take tablet 1 tablet 1 tablet Take 1 twice a day twice a day tablet by oral by oral twice a route for route for day by 30 days. 30 days. oral route for 30 days. metoprolol metoprolol No metoprolol [facility] succinate succinate succinate Medical ER 25 mg ER 25 mg ER 25 mg tablet,exte tablet,exte tablet,ext nded nded ended release 24 release 24 release 24 hr Take 0.5 hr Take 0.5 hr Take tablets tablets 0.5 every day every day tablets by oral by oral every day route. route. by oral route. Tradjenta 5 Tradjenta 5 No Tradjenta [facility] mg tablet 1 mg tablet 1 5 mg M edical tab po tab po tablet 1 daily daily tab po daily tramadol 50 tramadol 50 No tramadol [facility] mg tablet mg tablet 50 mg Medi jennifer Take 1 Take 1 tablet tablet tablet Take 1 twice a day twice a day tablet by oral by oral twice a route as route as day by needed for needed for oral route 10 days. 10 days. as needed for 10 days. trazodone trazodone No trazodone [facility] 100 mg 100 mg 100 mg [facility] tablet Take tablet Take tablet 2 tablets 2 tablets Take 2 every day every day tablets by oral by oral every day route at route at by oral bedtime for bedtime for route at 30 days. 30 days. bedtime for 30 days. Vitamin D3 Vitamin D3 No Vitamin D3 [facility] (cholecalci (cholecalci (cholecalc Medical ferol ferol iferol (vitamin (vitamin (vitamin de)) (OTC) de)) (OTC) de)) (OTC) tablet: tablet: tablet: 1000 units 1000 units 1000 units amt two amt two amt two tabs oral tabs oral tabs oral once a day once a day once a day atorvastati atorvastati No atorvastat [facility] n 40 mg n 40 mg in 40 mg Medic al tablet tablet tablet Lipitor- Lipitor- Lipitor- give 40mg give 40mg give 40mg tablet po tablet po tablet po daily daily daily baclofen 5 baclofen 5 No baclofen 5 [facility] mg tablet 1 mg tablet 1 mg tablet Medical tablet tid tablet tid 1 tablet tid Daily Daily No Daily [facility] Multivitami Multivitami Multivitam Medical n (Multivit n (Multivit in with with (Multivit min-folic min-folic with acid) acid) min-folic tablet tablet acid) 0.4mg amt: 0.4mg amt: tablet one tablet: one tablet: 0.4mg amt: give one give one one tab by tab by tablet: mouth once mouth once give one daily daily tab by mouth once daily divalproex divalproex No 2 Q1D divalproex [facility] ER 500 mg ER 500 mg ER 500 mg Medical tablet,exte tablet,exte tablet,ext nded nded ended release 24 release 24 release 24 hr Take 2 hr Take 2 hr Take 2 tablets tablets tablets every day every day every day by oral by oral by oral route at route at route at bedtime. bedtime. bedtime. docusate docusate No docusate [facility] via sodium 100 sodium 100 sodium 100 Medical mg capsule mg capsule mg capsule (colace) (colace) (colace) TAKE 1 TAKE 1 TAKE 1 CAPSULE CAPSULE CAPSULE (100 MG) BY (100 MG) BY (100 MG) ORAL ROUTE ORAL ROUTE BY ORAL ONCE DAILY ONCE DAILY ROUTE ONCE AT BEDTIME AT BEDTIME DAILY AT NEEDED NEEDED BEDTIME NEEDED Eliquis 5 Eliquis 5 No Eliquis 5 [facility] mg tablet 1 mg tablet 1 mg tablet Medical tablet bid tablet bid 1 tablet bid furosemide furosemide No furosemide [facility] 40 mg 40 mg 40 mg [facility] tablet Take tablet Take tablet 1 tablet 1 tablet Take 1 every day every day tablet by oral by oral every day route for route for by oral 14 days. 14 days. route for 14 days. gabapentin gabapentin No gabapentin [facility] 100 mg 100 mg 100 mg [facility] capsule capsule capsule Take 1 Take 1 Take 1 capsule 3 capsule 3 capsule 3 times a day times a day times a by oral by oral day by route for route for oral route 30 days. 30 days. for 30 days. insulin insulin No 10unit( Q1D insulin [facility] via glargine glargine s) glargine Med ical (U-100) 100 (U-100) 100 (U-100) unit/mL (3 unit/mL (3 100 mL) mL) unit/mL (3 subcutaneou subcutaneou mL) s pen s pen subcutaneo Inject 10 Inject 10 us pen units every units every Inject 10 day by day by units sub-q route sub-q route every day at bedtime. at bedtime. by sub-q route at bedtime. insulin insulin No insulin [facility] lispro lispro lispro Medical (U-100) 100 (U-100) 100 (U-100) unit/mL unit/mL 100 subcutaneou subcutaneou unit/mL s solution s solution subcutaneo Inject 5 Inject 5 us units every units every solution day by day by Inject 5 sub-q route sub-q route units with meals with meals every day for 30 for 30 by sub-q days. days. route with meals for 30 days. metformin metformin No metformin [facility] 850 mg 850 mg 850 mg Medical tablet Take tablet Take tablet 1 tablet 1 tablet Take 1 twice a day twice a day tablet by oral by oral twice a route for route for day by 30 days. 30 days. oral route for 30 days. metoprolol metoprolol No metoprolol [facility] succinate succinate succinate Medical ER 25 mg ER 25 mg ER 25 mg tablet,exte tablet,exte tablet,ext nded nded ended release 24 release 24 release 24 hr Take 0.5 hr Take 0.5 hr Take tablets tablets 0.5 every day every day tablets by oral by oral every day route. route. by oral route. Tradjenta 5 Tradjenta 5 No Tradjenta [facility] mg tablet 1 mg tablet 1 5 mg M edical tab po tab po tablet 1 daily daily tab po daily trazodone trazodone No trazodone [facility] 100 mg 100 mg 100 mg Medical tablet Take tablet Take tablet 2 tablets 2 tablets Take 2 every day every day tablets by oral by oral every day route at route at by oral bedtime for bedtime for route at 30 days. 30 days. bedtime for 30 days. Vitamin D3 Vitamin D3 No Vitamin D3 [facility] (cholecalci (cholecalci (cholecalc Medical ferol ferol iferol (vitamin (vitamin (vitamin de)) (OTC) de)) (OTC) de)) (OTC) tablet: tablet: tablet: 1000 units 1000 units 1000 units amt two amt two amt two tabs oral tabs oral tabs oral once a day once a day once a day atorvastati atorvastati No atorvastat [facility] n 40 mg n 40 mg in 40 mg Medic al tablet tablet tablet Lipitor- Lipitor- Lipitor- give 40mg give 40mg give 40mg tablet po tablet po tablet po daily daily daily baclofen 5 baclofen 5 No baclofen 5 [facility] mg tablet 1 mg tablet 1 mg tablet Medical tablet tid tablet tid 1 tablet tid Daily Daily No Daily [facility] Multivitami Multivitami Multivitam Medical n (Multivit n (Multivit in with with (Multivit min-folic min-folic with acid) acid) min-folic tablet tablet acid) 0.4mg amt: 0.4mg amt: tablet one tablet: one tablet: 0.4mg amt: give one give one one tab by tab by tablet: mouth once mouth once give one daily daily tab by mouth once daily divalproex divalproex No divalproex [facility] ER 500 mg ER 500 mg ER 500 mg Medical tablet,exte tablet,exte tablet,ext nded nded ended release 24 release 24 release 24 hr Take 2 hr Take 2 hr Take 2 tablets tablets tablets every day every day every day by oral by oral by oral route at route at route at bedtime. bedtime. bedtime. docusate docusate No docusate [facility] via sodium 100 sodium 100 sodium 100 Medical mg capsule mg capsule mg capsule (colace) (colace) (colace) TAKE 1 TAKE 1 TAKE 1 CAPSULE CAPSULE CAPSULE (100 MG) BY (100 MG) BY (100 MG) ORAL ROUTE ORAL ROUTE BY ORAL ONCE DAILY ONCE DAILY ROUTE ONCE AT BEDTIME AT BEDTIME DAILY AT NEEDED NEEDED BEDTIME NEEDED Eliquis 5 Eliquis 5 No Eliquis 5 [facility] mg tablet 1 mg tablet 1 mg tablet Medical tablet bid tablet bid 1 tablet bid furosemide furosemide No furosemide [facility] 40 mg 40 mg 40 mg [facility] tablet Take tablet Take tablet 1 tablet 1 tablet Take 1 every day every day tablet by oral by oral every day route for route for by oral 14 days. 14 days. route for 14 days. gabapentin gabapentin No gabapentin [facility] 100 mg 100 mg 100 mg [facility] capsule capsule capsule Take 1 Take 1 Take 1 capsule 3 capsule 3 capsule 3 times a day times a day times a by oral by oral day by route for route for oral route 30 days. 30 days. for 30 days. insulin insulin No insulin [facility] glargine glargine glargine Med ical (U-100) 100 (U-100) 100 (U-100) unit/mL (3 unit/mL (3 100 mL) mL) unit/mL (3 subcutaneou subcutaneou mL) s pen s pen subcutaneo Inject 10 Inject 10 us pen units every units every Inject 10 day by day by units sub-q route sub-q route every day at bedtime. at bedtime. by sub-q route at bedtime. insulin insulin No insulin [facility] lispro lispro lispro Medical (U-100) 100 (U-100) 100 (U-100) unit/mL unit/mL 100 subcutaneou subcutaneou unit/mL s pen s pen subcutaneo us pen insulin insulin No insulin [facility] lispro lispro lispro Medical (U-100) 100 (U-100) 100 (U-100) unit/mL unit/mL 100 subcutaneou subcutaneou unit/mL s solution s solution subcutaneo Inject 5 Inject 5 us units every units every solution day by day by Inject 5 sub-q route sub-q route units with meals with meals every day for 30 for 30 by sub-q days. days. route with meals for 30 days. metformin metformin No metformin [facility] 850 mg 850 mg 850 mg [facility] tablet Take tablet Take tablet 1 tablet 1 tablet Take 1 twice a day twice a day tablet by oral by oral twice a route for route for day by 30 days. 30 days. oral route for 30 days. metoprolol metoprolol No metoprolol [facility] succinate succinate succinate Medical ER 25 mg ER 25 mg ER 25 mg tablet,exte tablet,exte tablet,ext nded nded ended release 24 release 24 release 24 hr Take 0.5 hr Take 0.5 hr Take tablets tablets 0.5 every day every day tablets by oral by oral every day route. route. by oral route. Tradjenta 5 Tradjenta 5 No Tradjenta [facility] mg tablet 1 mg tablet 1 5 mg M edical tab po tab po tablet 1 daily daily tab po daily trazodone trazodone No trazodone [facility] 100 mg 100 mg 100 mg [facility] tablet Take tablet Take tablet 2 tablets 2 tablets Take 2 every day every day tablets by oral by oral every day route at route at by oral bedtime for bedtime for route at 30 days. 30 days. bedtime for 30 days. Vitamin D3 Vitamin D3 No Vitamin D3 [facility] (cholecalci (cholecalci (cholecalc Medical ferol ferol iferol (vitamin (vitamin (vitamin de)) (OTC) de)) (OTC) de)) (OTC) tablet: tablet: tablet: 1000 units 1000 units 1000 units amt two amt two amt two tabs oral tabs oral tabs oral once a day once a day once a day atorvastati atorvastati No atorvastat [facility] n 40 mg n 40 mg in 40 mg Medic al tablet tablet tablet Lipitor- Lipitor- Lipitor- give 40mg give 40mg give 40mg tablet po tablet po tablet po daily daily daily baclofen 5 baclofen 5 No baclofen 5 [facility] mg tablet 1 mg tablet 1 mg tablet Medical tablet tid tablet tid 1 tablet tid Daily Daily No Daily [facility] Multivitami Multivitami Multivitam Medical n (Multivit n (Multivit in with with (Multivit min-folic min-folic with acid) acid) min-folic tablet tablet acid) 0.4mg amt: 0.4mg amt: tablet one tablet: one tablet: 0.4mg amt: give one give one one tab by tab by tablet: mouth once mouth once give one daily daily tab by mouth once daily divalproex divalproex No divalproex [facility] ER 500 mg ER 500 mg ER 500 mg Medical tablet,exte tablet,exte tablet,ext nded nded ended release 24 release 24 release 24 hr Take 2 hr Take 2 hr Take 2 tablets tablets tablets every day every day every day by oral by oral by oral route at route at route at bedtime. bedtime. bedtime. docusate docusate No docusate [facility] via sodium 100 sodium 100 sodium 100 Medical mg capsule mg capsule mg capsule (colace) (colace) (colace) TAKE 1 TAKE 1 TAKE 1 CAPSULE CAPSULE CAPSULE (100 MG) BY (100 MG) BY (100 MG) ORAL ROUTE ORAL ROUTE BY ORAL ONCE DAILY ONCE DAILY ROUTE ONCE AT BEDTIME AT BEDTIME DAILY AT NEEDED NEEDED BEDTIME NEEDED Eliquis 5 Eliquis 5 No Eliquis 5 [facility] mg tablet 1 mg tablet 1 mg tablet Medical tablet bid tablet bid 1 tablet bid furosemide furosemide No furosemide [facility] 40 mg 40 mg 40 mg Medical tablet Take tablet Take tablet 1 tablet 1 tablet Take 1 every day every day tablet by oral by oral every day route for route for by oral 14 days. 14 days. route for 14 days. gabapentin gabapentin No gabapentin [facility] 100 mg 100 mg 100 mg Medical capsule capsule capsule Take 1 Take 1 Take 1 capsule 3 capsule 3 capsule 3 times a day times a day times a by oral by oral day by route for route for oral route 30 days. 30 days. for 30 days. insulin insulin No insulin [facility] glargine glargine glargine Med ical (U-100) 100 (U-100) 100 (U-100) unit/mL (3 unit/mL (3 100 mL) mL) unit/mL (3 subcutaneou subcutaneou mL) s pen s pen subcutaneo Inject 10 Inject 10 us pen units every units every Inject 10 day by day by units sub-q route sub-q route every day at bedtime. at bedtime. by sub-q route at bedtime. insulin insulin No insulin [facility] lispro lispro lispro Medical (U-100) 100 (U-100) 100 (U-100) unit/mL unit/mL 100 subcutaneou subcutaneou unit/mL s pen s pen subcutaneo us pen insulin insulin No insulin [facility] lispro lispro lispro Medical (U-100) 100 (U-100) 100 (U-100) unit/mL unit/mL 100 subcutaneou subcutaneou unit/mL s solution s solution subcutaneo Inject 5 Inject 5 us units every units every solution day by day by Inject 5 sub-q route sub-q route units with meals with meals every day for 30 for 30 by sub-q days. days. route with meals for 30 days. metformin metformin No metformin [facility] 850 mg 850 mg 850 mg [facility] tablet Take tablet Take tablet 1 tablet 1 tablet Take 1 twice a day twice a day tablet by oral by oral twice a route for route for day by 30 days. 30 days. oral route for 30 days. metoprolol metoprolol No metoprolol [facility] succinate succinate succinate Medical ER 25 mg ER 25 mg ER 25 mg tablet,exte tablet,exte tablet,ext nded nded ended release 24 release 24 release 24 hr Take 0.5 hr Take 0.5 hr Take tablets tablets 0.5 every day every day tablets by oral by oral every day route. route. by oral route. Tradjenta 5 Tradjenta 5 No Tradjenta [facility] mg tablet 1 mg tablet 1 5 mg M edical tab po tab po tablet 1 daily daily tab po daily trazodone trazodone No trazodone [facility] 100 mg 100 mg 100 mg [facility] tablet Take tablet Take tablet 2 tablets 2 tablets Take 2 every day every day tablets by oral by oral every day route at route at by oral bedtime for bedtime for route at 30 days. 30 days. bedtime for 30 days. Vital Signs Vital Name Observation Time Observation Value Comments Source WEIGHT 2021-04-11 05:37:00 122.4 kg WEIGHT 2021-04-06 05:00:00 122 kg WEIGHT 2021-04-05 08:00:00 122.2 kg WEIGHT 2021-04-04 06:00:00 113.7 kg HEIGHT 2021-04-03 10:00:00 177.8 cm WEIGHT 2021-04-02 17:00:00 113 kg BP Diastolic 2022-11-30 00:00:00 61 mm[Hg] [facility] Height 2022-11-30 00:00:00 69 [in_i] [facility] BMI (Body Mass Index) 2022-11-30 00:00:00 43.2 kg/m2 [facility] BP Systolic 2022-11-30 00:00:00 122 mm[Hg] [facility] Body Weight 2022-11-30 00:00:00 4681 [oz_av] [facility] BP Diastolic 2022-11-27 00:00:00 81 mm[Hg] [facility] Height 2022-11-27 00:00:00 69 [in_i] [facility] BMI (Body Mass Index) 2022-11-27 00:00:00 43.2 kg/m2 [facility] BP Systolic 2022-11-27 00:00:00 156 mm[Hg] [facility] Body Weight 2022-11-27 00:00:00 4678 [oz_av] [facility] BP Diastolic 2022-10-09 00:00:00 71 mm[Hg] [facility] Height 2022-10-09 00:00:00 69 [in_i] [facility] BMI (Body Mass Index) 2022-10-09 00:00:00 44.3 kg/m2 [facility] BP Systolic 2022-10-09 00:00:00 134 mm[Hg] [facility] Body Weight 2022-10-09 00:00:00 4800 [oz_av] [facility] Height 2022-09-11 00:00:00 69 [in_i] [facility] BMI (Body Mass Index) 2022-09-11 00:00:00 44.3 kg/m2 [facility] Body Weight 2022-09-11 00:00:00 4800 [oz_av] [facility] Height 2022-08-24 00:00:00 69 [in_i] [facility] BMI (Body Mass Index) 2022-08-24 00:00:00 44.3 kg/m2 [facility] Body Weight 2022-08-24 00:00:00 4800 [oz_av] [facility] Height 2022-08-03 00:00:00 69 [in_i] [facility] BMI (Body Mass Index) 2022-08-03 00:00:00 42.8 kg/m2 [facility] Body Weight 2022-08-03 00:00:00 4640 [oz_av] [facility] BP Diastolic 2022-07-17 00:00:00 80 mm[Hg] [facility] Height 2022-07-17 00:00:00 69 [in_i] [facility] BMI (Body Mass Index) 2022-07-17 00:00:00 42.9 kg/m2 [facility] BP Systolic 2022-07-17 00:00:00 138 mm[Hg] [facility] Body Weight 2022-07-17 00:00:00 4645 [oz_av] [facility] BP Diastolic 2022-06-26 00:00:00 80 mm[Hg] [facility] Height 2022-06-26 00:00:00 69 [in_i] [facility] BMI (Body Mass Index) 2022-06-26 00:00:00 42.9 kg/m2 [facility] BP Systolic 2022-06-26 00:00:00 138 mm[Hg] [facility] Body Weight 2022-06-26 00:00:00 4645 [oz_av] [facility] BP Diastolic 2022-06-12 00:00:00 70 mm[Hg] [facility] Height 2022-06-12 00:00:00 69 [in_i] [facility] BMI (Body Mass Index) 2022-06-12 00:00:00 41.6 kg/m2 [facility] BP Systolic 2022-06-12 00:00:00 128 mm[Hg] [facility] Body Weight 2022-06-12 00:00:00 4502 [oz_av] [facility] BP Diastolic 2022-05-15 00:00:00 80 mm[Hg] [facility] Height 2022-05-15 00:00:00 69 [in_i] [facility] BMI (Body Mass Index) 2022-05-15 00:00:00 41.4 kg/m2 [facility] BP Systolic 2022-05-15 00:00:00 138 mm[Hg] [facility] Body Weight 2022-05-15 00:00:00 4486 [oz_av] [facility] BP Diastolic 2022-05-01 00:00:00 80 mm[Hg] [facility] Height 2022-05-01 00:00:00 69 [in_i] [facility] BMI (Body Mass Index) 2022-05-01 00:00:00 41.4 kg/m2 [facility] BP Systolic 2022-05-01 00:00:00 130 mm[Hg] [facility] Body Weight 2022-05-01 00:00:00 4486 [oz_av] [facility] BP Diastolic 2022-03-29 00:00:00 80 mm[Hg] [facility] Height 2022-03-29 00:00:00 69 [in_i] [facility] BMI (Body Mass Index) 2022-03-29 00:00:00 26.2 kg/m2 [facility] BP Systolic 2022-03-29 00:00:00 138 mm[Hg] [facility] Body Weight 2022-03-29 00:00:00 2837 [oz_av] [facility] BP Diastolic 2022-03-23 00:00:00 80 mm[Hg] [facility] Height 2022-03-23 00:00:00 69 [in_i] [facility] BP Systolic 2022-03-23 00:00:00 138 mm[Hg] [facility] Body Weight 2022-03-23 00:00:00 2837 [oz_av] [facility] BP Diastolic 2022-02-13 00:00:00 78 mm[Hg] [facility] Height 2022-02-13 00:00:00 69 [in_i] [facility] BMI (Body Mass Index) 2022-02-13 00:00:00 48.8 kg/m2 [facility] BP Systolic 2022-02-13 00:00:00 122 mm[Hg] [facility] Body Weight 2022-02-13 00:00:00 5288 [oz_av] [facility] BP Diastolic 2022-02-01 00:00:00 68 mm[Hg] [facility] Height 2022-02-01 00:00:00 69 [in_i] [facility] BMI (Body Mass Index) 2022-02-01 00:00:00 48.8 kg/m2 [facility] BP Systolic 2022-02-01 00:00:00 135 mm[Hg] [facility] Body Weight 2022-02-01 00:00:00 5288 [oz_av] [facility] BP Diastolic 2022-01-23 00:00:00 71 mm[Hg] [facility] Height 2022-01-23 00:00:00 69 [in_i] [facility] BMI (Body Mass Index) 2022-01-23 00:00:00 48.8 kg/m2 [facility] BP Systolic 2022-01-23 00:00:00 129 mm[Hg] [facility] Body Weight 2022-01-23 00:00:00 5288 [oz_av] [facility] BP Diastolic 2022-01-09 00:00:00 76 mm[Hg] [facility] Height 2022-01-09 00:00:00 69 [in_i] [facility] BMI (Body Mass Index) 2022-01-09 00:00:00 48.8 kg/m2 [facility] BP Systolic 2022-01-09 00:00:00 127 mm[Hg] [facility] Body Weight 2022-01-09 00:00:00 5288 [oz_av] [facility] BP Diastolic 2021-12-22 00:00:00 62 mm[Hg] [facility] Height 2021-12-22 00:00:00 69 [in_i] [facility] BMI (Body Mass Index) 2021-12-22 00:00:00 49 kg/m2 [facility] BP Systolic 2021-12-22 00:00:00 122 mm[Hg] [facility] Body Weight 2021-12-22 00:00:00 5312 [oz_av] [facility] BP Diastolic 2021-12-08 00:00:00 67 mm[Hg] [facility] Height 2021-12-08 00:00:00 69 [in_i] [facility] BMI (Body Mass Index) 2021-12-08 00:00:00 49.1 kg/m2 [facility] BP Systolic 2021-12-08 00:00:00 122 mm[Hg] [facility] Body Weight 2021-12-08 00:00:00 5320 [oz_av] [facility] BP Diastolic 2021-12-06 00:00:00 64 mm[Hg] [facility] Height 2021-12-06 00:00:00 69 [in_i] [facility] BMI (Body Mass Index) 2021-12-06 00:00:00 49.5 kg/m2 [facility] BP Systolic 2021-12-06 00:00:00 115 mm[Hg] [facility] Body Weight 2021-12-06 00:00:00 5360 [oz_av] [facility] BP Diastolic 2021-11-24 00:00:00 79 mm[Hg] [facility] Height 2021-11-24 00:00:00 69 [in_i] [facility] BMI (Body Mass Index) 2021-11-24 00:00:00 49.5 kg/m2 [facility] BP Systolic 2021-11-24 00:00:00 130 mm[Hg] [facility] Body Weight 2021-11-24 00:00:00 5360 [oz_av] [facility] BP Diastolic 2021-11-16 00:00:00 51 mm[Hg] [facility] Height 2021-11-16 00:00:00 69 [in_i] [facility] BMI (Body Mass Index) 2021-11-16 00:00:00 49.2 kg/m2 [facility] BP Systolic 2021-11-16 00:00:00 101 mm[Hg] [facility] Body Weight 2021-11-16 00:00:00 5332 [oz_av] [facility] WEIGHT 2021-04-11 05:37:00 122.4 kg WEIGHT 2021-04-06 05:00:00 122 kg WEIGHT 2021-04-05 08:00:00 122.2 kg WEIGHT 2021-04-04 06:00:00 113.7 kg HEIGHT 2021-04-03 10:00:00 177.8 cm WEIGHT 2021-04-02 17:00:00 113 kg Systolic blood 2021-04-11 11:00:00 148 mm[Hg] [facility] Diastolic blood 2021-04-11 11:00:00 67 mm[Hg] [facility] Heart rate 2021-04-11 11:00:00 62 /min [facility] Body temperature 2021-04-11 11:00:00 36.72 Adriana [facility] Respiratory rate 2021-04-11 11:00:00 18 /min [facility] Oxygen saturation in 2021-04-11 11:00:00 98 /min [facility] Arterial blood by Medical Ce [facility]ter Pulse oximetry Body weight 2021-04-11 05:37:00 122.4 kg [facility] BMI 2021-04-11 05:37:00 38.72 kg/m2 [facility] Body height 2021-04-03 10:00:00 177.8 cm [facility] Height 2019-01-01 19:01:[address] [facility] Weight 2019-01-01 19:01:00 [facility] Calculated 2019-01-01 19:01:00 [facility] Rate 2019-01-01 19:01:00 [facility] Heart Rate 2019-01-01 19:01:00 [facility] Systolic (mm Hg) 2019-01-01 19:01:00 [facility] [place] Diastolic (mm Hg) 2019-01-01 19:01:00 [facility] Systolic (mm Hg) 2018-09-03 20:22:00 [facility] Diastolic (mm Hg) 2018-09-03 20:22:00 [facility] Heart Rate 2018-09-03 20:22:00 [facility] Respitory Rate 2018-09-03 20:22:00 [facility] Height 2018-09-03 20:22:00 175.26 cm [facility] Weight 2018-09-03 20:22:00 [facility] [place] BMI Calculated 2018-09-03 20:22:00 [facility] Weight 2018-08-27 21:32:00 [facility] BMI Calculated 2018-08-27 21:32:00 [facility] Height 2018-08-27 21:32:00 175.26 cm [facility] Systolic (mm Hg) 2018-08-27 21:32:00 [facility] Diastolic (mm Hg) 2018-08-27 21:32:00 [facility] Respitory Rate 2018-08-27 21:32:00 [facility] Heart Rate 2018-08-27 21:32:00 [facility] Height 2018-05-29 16:23:00 177.8 cm [facility] Systolic (mm Hg) 2018-05-29 16:23:00 [facility] [place] Diastolic (mm Hg) 2018-05-29 16:23:00 [facility] [place] Heart Rate 2018-05-29 16:23:00 [facility] Respitory Rate 2018-05-29 [facility] [place] [facility] Procedure Date / Time Performing Clinician Source Performed POCT-GLUCOSE METER 2021-04-11 11:01:00 Mandy [facility] POCT-GLUCOSE METER 2021-04-11 08:23:00 Mandy [facility] POCT-GLUCOSE METER 2021-04-10 20:17:00 Mandy [facility] POCT-GLUCOSE METER 2021-04-10 20:06:00 Mandy [facility] POCT-GLUCOSE METER 2021-04-10 16:15:00 M[facility] POCT-GLUCOSE METER 2021-04-10 12:55:00 M[facility] POCT-GLUCOSE METER 2021-04-10 07:25:00 M[facility] POCT-GLUCOSE METER 2021-04-09 20:53:00 Mandy [facility] POCT-GLUCOSE METER 2021-04-09 16:25:00 M[facility] POCT-GLUCOSE METER 2021-04-09 11:59:00 M[facility] CBC W/PLT COUNT & AUTO 2021-04-09 09:51:00 M[facility] CBC W/PLT COUNT & AUTO 2021-04-09 09:51:00 Bertin Hubbard [facility] DIFFERENTIAL [facility] PHOSPHORUS 2021-04-09 09:49:[address] [facility] MAGNESIUM 2021-04-09 09:49:[address] [facility] CALCIUM, IONIZED 2021-04-09 09:49:00 Mandy [facility] COMPREHENSIVE METABOLIC 2021-04-09 09:49:[address] [facility] POCT-GLUCOSE METER 2021-04-09 08:13:00 Mandy [facility] POCT-GLUCOSE METER 2021-04-08 21:37:00 Mandy [facility] POCT-GLUCOSE METER 2021-04-08 15:42:00 Mandy [facility] ECG 12-LEAD 2021-04-08 15:04:[facility] 2021-04-08 15:04:33 Unknown, Hl7 [facility] POCT-GLUCOSE METER 2021-04-08 11:23:00 Mandy [facility] MAGNESIUM 2021-04-08 09:18:[address] [facility] PHOSPHORUS 2021-04-08 09:18:[address] [facility] CALCIUM, IONIZED 2021-04-08 09:18:00 Mandy [facility] CBC W/PLT COUNT & AUTO 2021-04-08 09:18:00 M[facility] COMPREHENSIVE METABOLIC 2021-04-08 09:18:[address] [facility] CBC W/PLT COUNT & AUTO 2021-04-08 09:18:00 Bertin Hubbard [facility] DIFFERENTIAL [facility] POCT-GLUCOSE METER 2021-04-08 07:45:00 Mandy [facility] POCT-GLUCOSE METER 2021-04-07 21:22:00 Maxwell [facility] POCT-GLUCOSE METER 2021-04-07 14:40:00 Maxwell [facility] POCT-GLUCOSE METER 2021-04-07 11:51:00 Maxwell [facility] POCT-GLUCOSE METER 2021-04-07 07:49:00 Maxwell [facility] POCT-GLUCOSE METER 2021-04-06 22:32:00 Mawxell [facility] POCT-GLUCOSE METER 2021-04-06 16:11:00 Maxwell [facility] POCT-GLUCOSE METER 2021-04-06 11:24:00 Maxwell [facility] MAGNESIUM 2021-04-06 10:41:[address] [facility] PHOSPHORUS 2021-04-06 10:41:[address] [facility] CALCIUM, IONIZED 2021-04-06 10:41:00 Mandy [facility] COMPREHENSIVE METABOLIC 2021-04-06 10:41:[address] [facility] C-REACTIVE PROTEIN 2021-04-06 10:41:00 Naty Aldridge [facility] POCT-GLUCOSE METER 2021-04-06 07:20:00 Maxwell [facility] POCT-GLUCOSE METER 2021-04-05 16:00:00 Tanvi Rodriguez [facility] 2D ECHO W/ DOPPLER 2021-04-05 14:21:54 Francisca Ramirez [facility] (CW/PW/COLOR) [facility] B-TYPE NATRIURETIC FACTOR 2021-04-05 13:37:00 Francisca Ramirez [facility] (BNP) [facility] BLOOD GAS, VENOUS 2021-04-05 13:12:00 Francisca Ramirez [facility] POCT-GLUCOSE METER 2021-04-05 07:45:00 [place] [facility] XR CHEST 1 VIEW PORTABLE / 2021-04-05 05:12:00 Servando Gibbons [place] in [facility] MAGNESIUM 2021-04-05 02:34:[address] [facility] PHOSPHORUS 2021-04-05 02:34:00 [facility] CALCIUM, IONIZED 2021-04-05 02:34:00 [facility]T [facility] & AUTO 2021-04-05 02:34:00 [facility]IVE METABOLIC 2021-04-05 02:34[facility] W/[facility] COUNT & AUTO 2021-04-05 02:34:00 Mackenzie Mena [facility] VENOUS DOPPLER LEGS 2021-04-05 00:36:00 Mackenzie Mena [facility] VANCOMYCIN LEVEL, TROUGH 2021-04-04 19:29:00 Luz Madrigal [facility] CALCIUM, IONIZED 2021-04-04 19:29:00 Americo Segura Tinajero [facility] POCT-GLUCOSE METER 2021-04-04 16:52:00 [place], [facility] CT CHEST FOR PULMONARY 2021-04-04 13:13:00 Boo [facility] EMBOLUS [facility] SPUTUM CULTURE + GRAM STAIN 2021-04-04 12:38:00 [facility] CALCIUM, IONIZED 2021-04-04 12:27:00 Boo [facility] HIGH SENSITIVITY TROPONIN I 2021-04-04 12:23:00 [facility] Hospital D-DIMER 2021-04-04 12:23:00 [facility] POCT-GLUCOSE METER 2021-04-04 12:06:00 [place] [facility] POCT-GLUCOSE METER 2021-04-04 09:48:00 Hayat Colton [facility] CBC W/PLT COUNT & AUTO 2021-04-04 04:32:[address] [facility] COMPREHENSIVE METABOLIC 2021-04-04 04:32:00 Servando Gibbons [facility] MAGNESIUM 2021-04-04 04:32:00 [facility] CBC W/PLT COUNT & AUTO 2021-04-04 04:32:[address] [facility] XR CHEST 1 VIEW PORTABLE / 2021-04-04 04:04:00 Servando Gibbons [facility] POCT-GLUCOSE METER 2021-04-03 21:24:00 [place] [facility] POCT-GLUCOSE METER 2021-04-03 16:29:00 Americo Segura Tinajero [facility] HIGH SENSITIVITY TROPONIN I 2021-04-03 13:44:00 Mackenzie Mena [facility] POCT-GLUCOSE METER 2021-04-03 12:43:00 [place] [facility] 2D ECHO W/ DOPPLER 2021-04-03 11:51:22 Veronica Purvis [facility] (CW/PW/COLOR) [facility] POCT-GLUCOSE METER 2021-04-03 09:19:00 [place], Tinajero [facility] HIGH SENSITIVITY TROPONIN I 2021-04-03 08:17:00 Morgan Andersen [facility] COMPREHENSIVE METABOLIC 2021-04-03 04:50:00 ShaiServando boswell [facility] HEPATIC FUNCTION PANEL 2021-04-03 04:50:00 Servando Gibbons [facility] CBC W/PLT COUNT & AUTO 2021-04-03 04:17:[address] [facility] CBC W/PLT COUNT & AUTO 2021-04-03 04:17:[address] [facility] XR CHEST 1 VIEW PORTABLE / 2021-04-03 03:30:00 Servando Gibbons in [facility] POCT-GLUCOSE METER 2021-04-02 22:37:00 [facility] SARS-COV2/RT-PCR ([facility] & REF 2021-04-02 22:16:00 Yaniv, [facility] RESPIRATORY PANEL [facility] 2021-04-02 22:16:00 Yaniv [facility] BLOOD CULTURE 2021-04-02 19:06:00 [facility] LACT[facility]ID, VENOUS 2021-04-02 19:04:00 [facility] HEMOGLOBIN A1C 2021-04-02 19:04:00 Yaniv [facility] XR CHEST 1 VIEW PORTABLE / 2021-04-02 18:40:00 Servando Gibbons [facility] LEGIONELLA URINE ANTIGEN 2021-04-02 18:31:00 Yaniv, [facility] POCT-GLUCOSE METER 2021-04-02 18:26:00 [facility]XY[facility] SATURATION, MEASURED 2021-04-02 18:17:00 Servando Gibbons [facility] BLOOD CULTURE 2021-04-02 18:16:00 Shai [facility] PROTHROMBIN TIME/INR 2021-04-02 18:15:00 [facility] APTT 2021-04-02 18:15:00 Shai, [facility] FIBRINOGEN 2021-04-02 18:15:[address] [facility] FERRITIN 2021-04-02 18:15:00 [facility] HIGH SENSITIVITY TROPONIN I 2021-04-02 18:15:[address] [facility] yoselin [facility] THROMBOELASTOGRAPH (TEG) 2021-04-02 18:15:00 [place] C-REACTIVE PROTEIN 2021-04-02 18:15:00 [facility] MAGNESIUM 2021-04-02 18:15:00 Veronica Purvis [facility] BLOOD GAS, VENOUS 2021-04-02 18:15:00 [place] ECG 12-LEAD 2021-04-02 17:35:16 Unknown, 7 [facility] ECG 12-LEAD 2021-04-02 17:35:16 Unknown, [address] ECG 12-LEAD 2021-04-02 17:33:23 Unknown, [address] ECG 12-LEAD 2021-04-02 17:33:23 Unknown, [address] URINE CULTURE 2021-04-02 06:30:00 Veronica Purvis [facility] URINALYSIS W/ REFLEX URINE 2021-04-02 06:30:[address] [facility] CULTURE [facility] REPORT OF PROCEDURE - 2021-04-02 00:00:00 Provider, Default [facility] ENDOSCOPY SCAN Scanning [facility] Chemodenervation of one 2018-09-03 23:54:00 Daren lele [place] extremity; 1-4 muscle(s) Plan of Care Planned Activity Planned Date Details Comments Source Future Scheduled Test 2023-04-05 Influenza Vaccine (#1) [facility] 00:00:00 [code = Influenza Medical Ce nter Vaccine (#1)] Future Scheduled Test 2022-08-05 DEPRESSION SCREENING [facility] 00:00:00 (12+) [code = Medical Center DEPRESSION SCREENING (12+)] Future Scheduled Test 2022-08-05 FALLS RISK SCREENING [facility] 00:00:00 [code = FALLS RISK Medical C enter SCREENING] Diagnostic Test 2021-11-18 lipid panel, serum [facility] Pending 00:00:00 [code = lipid panel, serum] Diagnostic Test 2021-11-18 microalbumin, urine [facility] 00:00:00 [code = microalbumin, urine] Diagnostic Test 2021-11-18 CBC w/ auto diff [code [facility] 00:[facility]:00 = CBC w/ auto diff] Diagnostic Test 2021-11-18 HbA1c (hemoglobin [facility] Pending 00:00:00 A1c), blood [code = HbA1c (hemoglobin A1c), blood] Diagnostic Test 2021-11-18 CMP, serum or plasma [facility] 00:00:00 [code = CMP, serum or plasma] Future Scheduled Test 2021-04-05 INFLUENZA VACCINE (#1) [facility] 00:00:00 [code = INFLUENZA Medical Ce nter VACCINE (#1)] Future Scheduled Test 2021-04-05 INFLUENZA VACCINE (#1) [facility] 00:00:00 [code = INFLUENZA Medical Ce nter VACCINE (#1)] Future Scheduled Test 2020-08-[address] [facility] 00:00:00 (12+) [code = Medical Center DEPRESSION SCREENING (12+)] Future Scheduled Test 2020-08-05 FALLS RISK SCREENING [facility] 00:00:00 [code = FALLS RISK Medical C enter SCREENING] Future Scheduled Test 2020-08-[address] [facility] 00:00:00 (12+) [code = Medical Center DEPRESSION SCREENING (12+)] Future Scheduled Test 2020-08-05 FALLS RISK SCREENING [facility] 00:00:00 [code = FALLS RISK Medical C enter SCREENING] Future Scheduled Test 2015 PNEUMOCOCCAL 65+ YRS [facility] 00:00:00 (1 - PCV) [code = Medical Ce nter PNEUMOCOCCAL 65+ YRS (1 - PCV)] Future Scheduled Test 2015 PNEUMOCOCCAL 65+ YRS [facility] 00:00:00 (1 of 1 - Medical Center [id number] PCV13) [code = PNEUMOCOCCAL 65+ YRS (1 of 1 - [id number] PCV13)] Future Scheduled Test 2015 PNEUMOCOCCAL 65+ YRS [facility] 00:00:00 (1 of 1 - Medical Center [id number] PCV13) [code = PNEUMOCOCCAL 65+ YRS (1 of 1 - [id number] PCV13)] Future Scheduled Test 2013-11-[address] [facility] 00:00:00 WELLNESS (YEAR 2 or Medical Center FIRST YEAR if no IPPE) [code = MEDICARE ANNUAL WELLNESS (YEAR 2 or FIRST YEAR if no IPPE)] Future Scheduled Test 2013-11-[address] [facility] 00:00:00 WELLNESS (YEAR 2 or Medical Center FIRST YEAR if no IPPE) [code = MEDICARE ANNUAL WELLNESS (YEAR 2 or FIRST YEAR if no IPPE)] Future Scheduled Test 2013-11-[address] [facility] 00:00:00 WELLNESS (YEAR 2 or Medical Center FIRST YEAR if no IPPE) [code = MEDICARE ANNUAL WELLNESS (YEAR 2 or FIRST YEAR if no IPPE)] Future Scheduled Test 2000 SHINGLES VACCINES ([address] [facility] 00:00:00 of 2) [code = SHINGLES Medic al Center VACCINES (1 of 2)] Future Scheduled Test 2000 SHINGLES VACCINES ([address] [facility] 00:00:00 of 2) [code = SHINGLES Medic al Center VACCINES (1 of 2)] Future Scheduled Test 2000 SHINGLES VACCINES ([address] [facility] 00:00:00 of 2) [code = SHINGLES Medic al Center VACCINES (1 of 2)] Future Scheduled Test 1969 DTAP/TDAP/TD VACCINES [facility] 00:00:00 (1 - Tdap) [code = Medical C enter DTAP/TDAP/TD VACCINES (1 - Tdap)] Future Scheduled Test 1969 DTAP/TDAP/TD VACCINES [facility] 00:00:00 (1 - Tdap) [code = Medical C enter DTAP/TDAP/TD VACCINES (1 - Tdap)] Future Scheduled Test 1969 DTAP/TDAP/TD VACCINES [facility] 00:00:00 (1 - Tdap) [code = Medical C enter DTAP/TDAP/TD VACCINES (1 - Tdap)] Future Scheduled Test 1968 HEPATITIS C SCREENING [facility] 00:00:00 [code = HEPATITIS C Medical Center SCREENING] Future Scheduled Test 1968 HEPATITIS C SCREENING [facility] 00:00:00 [code = HEPATITIS C Medical Center SCREENING] Future Scheduled Test 1968 HEPATITIS C SCREENING [facility] 00:00:00 [code = HEPATITIS C Medical Center SCREENING] Future Scheduled Test [address] [facility] 00:[facility]:00 Counseling and Medical Cente r Screening (12+) [code = Tobacco Cessation Counseling and Screening (12+)] Future Scheduled Test 1962 COVID-19 VACCINE (1) [facility] 00:00:00 [code = COVID-[address] VACCINE (1)] Future Scheduled Test 1962 COVID-19 VACCINE (1) [facility] 00:00:00 [code = COVID-[address] VACCINE (1)] Future Scheduled Test 1951-01-21 COVID-19 VACCINE (#1) [facility] 00:00:00 [code = COVID-[address] VACCINE (#1)] Future Scheduled Test [address] [facility] 00:00:00 (combo) [code = CT Medical C enter Colonography (combo)] Future Scheduled Test 1950 [facility] malignant neoplasm of Medica l Center colon (procedure) [code = 986332534] Future Scheduled Test 1950 [facility] for [facility] 00:[facility]:00 malignant neoplasm of [facility]ica [facility] Center colon (procedure) [code = 869566536] Future Scheduled Test 1950 [facility] 00:[facility]:00 malignant neoplasm of Medica l Center colon (procedure) [code = 229739749] Future Scheduled Test 1950 [facility] 00:[facility]:00 malignant neoplasm of Medica l Center colon (procedure) [code = 425774181] Future Scheduled Test 1950 Sigmoidoscopy [code = [facility] 00:00:00 Sigmoidoscopy] Medical Cente r Future Scheduled Test 1950 [facility] for [facility] 00:[facility]:00 malignant neoplasm of Medica l Center colon (procedure) [code = 884086308] Future Scheduled Test 1950 [facility] for [facility] 00:00:00 malignant neoplasm of [facility] colon (procedure) [code = 203829290] Instructions [facility] Encounters Start End Encounter Admission Attending Care Care Encounter Source Date/Time Date/Time Type Type Clinicians Facility Department ID 2021-04-02 Inpatient ER LORRAINE, [facility] Pulmonology [id number] [facility] 16:50:00 KATRIN 2023-05-18 2023-05-18 Outpatient [facility] PRIV PRIV [id number] [facility] 00:00:00 00:00:00 d_J [id number] Medica l 2023-05-18 2023-05-18 Outpatient [facility]Tod PRIV PRIV [id number] [facility] 00:00:00 00:00:00 d_J [id number] Medica l 2023-05-18 2023-05-18 Outpatient [facility]Tod PRIV PRIV [id number] [facility] 00:00:00 00:00:00 d_J [id number] Medica l 2023-05-18 2023-05-18 Outpatient [facility]Tod PRIV PRIV [id number] [facility] 00:00:00 00:00:00 d_J [id number] Medica l 2023-05-18 2023-05-18 Outpatient [facility]Tod PRIV PRIV 239 [id number] [facility] 00:00:00 00:00:00 d_J [id number] Medica l 2023-05-18 2023-05-18 Outpatient [facility]Tod PRIV PRIV 239 [id number] [facility] 00:00:00 00:00:00 d_J [id number] Medica l 2023-05-09 2023-05-09 Outpatient [facility]Tod PRIV PRIV 239 [id number] [facility] 00:00:00 00:00:00 d_J [id number] Medica l 2023-03-21 2023-03-21 Outpatient [facility]Tod PRIV PRIV 239 [id number] [facility] 00:00:00 00:00:00 d_J [id number] Medica l 2023-03-21 2023-03-21 Outpatient [facility]Tod PRIV PRIV 239 [id number] [facility] 00:00:00 00:00:00 d_J [id number] Medica l 2023-03-21 2023-03-21 Outpatient [facility]Tod PRIV PRIV [id number] [facility] 00:00:00 00:00:00 d_J [id number] Medica l 2023-03-21 2023-03-21 Outpatient [facility]Tod PRIV PRIV 239 [id number] [facility] 00:00:00 00:00:00 d_J [id number] Medica l 2023-03-21 2023-03-21 Outpatient [facility]Tod PRIV PRIV 239 [id number] [facility] 00:00:00 00:00:00 d_J [id number] Medica l 2023-03-21 2023-03-21 Outpatient [facility] PRIV PRIV 239 [id number] [facility] 00:00:00 00:00:00 d_J [id number] Medica l 2023-03-21 2023-03-21 Outpatient [facility] PRIV PRIV 239 [id number] [facility] 00:00:00 00:00:00 d_J [id number] Medica l 2023-03-21 2023-03-21 Outpatient [facility]Tod PRIV PRIV 239 [id number] [facility] 00:00:00 00:00:00 d_J [id number] Medica l 2023-03-21 2023-03-21 Outpatient [facility]Tod PRIV PRIV 239 [id number] [facility] 00:00:00 00:00:00 d_J [id number] Medica l 2023-03-21 2023-03-21 Outpatient [facility]Tod PRIV PRIV 239 [id number] [facility] 00:00:00 00:00:00 d_J [id number] Medica l 2023-03-21 2023-03-21 Outpatient [facility]Tod PRIV PRIV 239 [id number] [facility] 00:00:00 00:00:00 d_J [id number] Medica l 2023-03-08 2023-03-08 Outpatient [facility]Tod PRIV PRIV 239 [id number] [facility] 00:00:00 00:00:00 d_J [id number] Medica l 2023-02-07 2023-02-07 Outpatient [facility]Tod PRIV PRIV 239 [id number] [facility] 00:00:00 00:00:00 d_J [id number] Medica l 2023-01-22 2023-01-22 Outpatient [facility]Tod PRIV PRIV 239 [id number] [facility] 00:00:00 00:00:00 d_J [id number] Medica l 2023-01-22 2023-01-22 Outpatient [facility]Tod PRIV PRIV 239 [id number] [facility] 00:00:00 00:00:00 d_J [id number] Medica l 2023-01-22 2023-01-22 Outpatient [facility]Tod PRIV PRIV 239 [id number] [facility] 00:00:00 00:00:00 d_J [id number] Medica l 2023-01-22 2023-01-22 Outpatient [facility]Tod PRIV PRIV 239 [id number] [facility] 00:00:00 00:00:00 d_J [id number] Medica l 2022-12-30 2022-12-30 Outpatient [facility]Tod PRIV PRIV 239 [id number] [facility] 00:00:00 00:00:00 d_J [id number] Medica l 2022-12-30 2022-12-30 Outpatient [facility]Tod PRIV PRIV 239 [id number] [facility] 00:00:00 00:00:00 d_J [id number] Medica l 2022-11-30 2022-11-30 Outpatient [facility]Tod PRIV PRIV 239 [id number] [facility] 00:00:00 00:00:00 d_J [id number] Medica l 2022-11-30 2022-11-30 Outpatient [facility]Tod PRIV PRIV 239 [id number] [facility] 00:00:00 00:00:00 d_J [id number] Medica l 2022-11-30 2022-11-30 Outpatient [facility]Tod PRIV PRIV 239 [id number] [facility] 00:00:00 00:00:00 d_J [id number] Medica l 2022-11-30 2022-11-30 Rebeka [facility] 428 [facility]:00:00 00:00:00 RAUL Alonso: Health - Med ical [address] [address] , Ph. 2022-11-27 2022-11-27 Renita Powers [facility] 202 [id number] [facility]:00:00 00:00:00 [facility] - Med ical MD: [address] [address] , Ph. 2022-11-05 2022-11-05 Outpatient [facility]Tod PRIV PRIV 239 [id number] [facility] 00:00:00 00:00:00 d_J [id number] Medica l 2022-11-05 2022-11-05 Outpatient [facility]Tod PRIV PRIV 239 [id number] [facility] 00:00:00 00:00:00 d_J [id number] Medica l 2022-11-05 2022-11-05 Outpatient [facility]Tod PRIV PRIV 239 [id number] [facility] 00:00:00 00:00:00 d_J [id number] Medica l 2022-11-05 2022-11-05 Outpatient [facility]Tod PRIV PRIV 239 [id number] [facility] 00:00:00 00:00:00 d_J [id number] Medica l 2022-11-05 2022-11-05 Outpatient [facility]Tod PRIV PRIV 239 [id number] [facility] 00:00:00 00:00:00 d_J [id number] Medica l 2022-11-02 2022-11-02 Outpatient [facility]Tod PRIV PRIV 239 [id number] [facility] 00:00:00 00:00:00 d_J [id number] Medica l 2022-10-09 2022-10-09 Rebeka [facility] [id number] [facility] 00:00:00 00:00:00 RAUL Alonso: Health - Med ical [address] [address] , Ph. 2022-10-04 2022-10-04 Outpatient [facility]Tod PRIV PRIV 239 [id number] [facility] 00:00:00 00:00:00 d_J [id number] Medica l 2022-10-04 2022-10-04 Outpatient [facility]Tod PRIV PRIV 239 [id number] [facility] 00:00:00 00:00:00 d_J [id number] Medica l 2022-10-01 2022-10-01 Outpatient [facility]Tod PRIV PRIV 239 [id number] [facility] 00:00:00 00:00:00 d_J [id number] Medica l 2022-10-01 2022-10-01 Outpatient [facility]Tod PRIV PRIV 239 [id number] [facility] 00:00:00 00:00:00 d_J [id number] Medica l 2022-09-11 2022-09-11 Rebeka [facility] [id number] [facility] 00:00:00 00:00:00 RAUL Alonso: Health - Med ical [address] [address] , Ph. 2022-08-24 2022-08-24 Rebeka [facility] [id number] [facility] 00:00:00 00:00:00 RAUL Alonso: Health - Med ical [address] [address] , Ph. 2022-08-03 2022-08-03 Renita Gio [facility] 202 [id number] [facility]:00:00 00:00:00 [facility] - Med ical MD: [address] [address] , Ph. 2022-07-20 2022-07-20 Outpatient [facility]_Tod PRIV PRIV 239 [id number] [facility] 00:00:00 00:00:00 d_J [id number] Medica l 2022-07-20 2022-07-20 Outpatient [facility]Tod PRIV PRIV 239 [id number] [facility] 00:00:00 00:00:00 d_J [id number] Medica l 2022-07-20 2022-07-20 Outpatient [facility]Tod PRIV PRIV 239 [id number] [facility] 00:00:00 00:00:00 d_J [id number] Medica l 2022-07-20 2022-07-20 Outpatient [facility]Tod PRIV PRIV 239 [id number] [facility] 00:00:00 00:00:00 d_J [id number] Medica l 2022-07-20 2022-07-20 Outpatient [facility]Tod PRIV PRIV 239 [id number] [facility] 00:00:00 00:00:00 d_J [id number] Medica l 2022-07-20 2022-07-20 Outpatient [facility]Tod PRIV PRIV 239 [id number] [facility] 00:00:00 00:00:00 d_J [id number] Medica l 2022-07-20 2022-07-20 Outpatient [facility]Tod PRIV PRIV 239 [id number] [facility] 00:00:00 00:00:00 d_J [id number] Medica l 2022-07-17 2022-07-17 Rebeka [facility] [id number] [facility] 00:00:00 00:00:00 RAUL Alonso: Health - Med ical [address] [address] , Ph. 2022-06-26 2022-06-26 Rebeka [facility] [id number] [facility] 00:00:00 00:00:00 RAUL Alonso: Health - Med ical [address] [address] , Ph. 2022-06-12 2022-06-12 Rebeka [facility] [id number] [facility] 00:00:00 00:00:00 RAUL Alonso: Health - Med ical [address] [address] , Ph. 2022-05-31 2022-05-31 Outpatient [facility]Tod PRIV PRIV 239 [id number] [facility] 00:00:00 00:00:00 d_J [id number] Medica l 2022-05-31 2022-05-31 Outpatient [facility]Tod PRIV PRIV 239 [id number] [facility] 00:00:00 00:00:00 d_J [id number] Medica l 2022-05-31 2022-05-31 Outpatient [facility]Tod PRIV PRIV 239 [id number] [facility] 00:00:00 00:00:00 d_J [id number] Medica l 2022-05-29 2022-05-29 Outpatient [facility]Tod PRIV PRIV 239 [id number] [facility] 00:00:00 00:00:00 d_J [id number] Medica l 2022-05-15 2022-05-15 [facility]be[facility] [id number] [facility] 00:00:00 00:00:00 RAUL Alonso: Health - Med ical [address] [address] , Ph. 2022-05-01 2022-05-01 Rebeka [facility] [id number] [facility] 00:00:00 00:00:00 RAUL Alonso: Health - Med ical [address] [facility] [address] , Ph. 2022-04-30 2022-04-30 Outpatient [facility]Tod PRIV PRIV 239 [id number] [facility] 00:00:00 00:00:00 d_J [id number] Medica l 2022-03-29 2022-03-29 Renita Powers [facility] [id number] [facility] 00:00:00 00:00:00 [facility] - Med ical MD: [address] [facility] [address] , Ph. 2022-03-29 2022-03-29 Outpatient NUBIA Lam PRIV [id number] 00:00:00 00:00:00 Renita Powers [id number] 2022-03-23 2022-03-23 Outpatient [facility]Tod PRIV PRIV [id number] [facility] 00:00:00 00:00:00 d_J [id number] Medica l 2022-03-23 2022-03-23 Rebeka [facility] [id number] [facility] 00:00:00 00:00:00 RAUL Alonso: Health - Med ical [address] [facility] [address] , Ph. 2022-03-23 2022-03-23 Outpatient NUBIA Alonso PRIV [id number] 00:00:00 00:00:00 Rebeka [id number] 2022-03-06 2022-03-06 Outpatient [facility]Tod PRIV PRIV 239 [id number] [facility] 00:00:00 00:00:00 d_J [id number] Medica l 2022-02-20 2022-02-20 Outpatient [facility]Tod PRIV PRIV 239 [id number] [facility] 12:09:00 12:09:00 d_J [id number] Medica l 2022-02-13 2022-02-13 Outpatient [facility]Tod PRIV PRIV 239 [id number] [facility] 01:25:00 01:25:00 d_J [id number] Medica l 2022-02-13 2022-02-13 [facility]beka [facility] [id number] [facility] 00:00:00 00:00:00 RAUL Alonso: Health - Med ical [address] [facility] [address] , Ph. 2022-02-13 2022-02-13 Outpatient Gavin PRIV PRIV [id number] 00:00:00 00:00:00 Rebeka [id number] 2022-02-06 2022-02-06 Outpatient [facility]Tod PRIV PRIV 239 [id number] [facility] 05:33:00 05:33:00 d_J [id number] Medica l 2022-02-05 2022-02-05 Outpatient [facility]Tod PRIV PRIV 239 [id number] [facility] 10:54:00 10:54:00 d_J [id number] Medica l 2022-02-01 2022-02-01 Outpatient [facility]Tod PRIV PRIV 239 [id number] [facility] 06:32:00 06:32:00 d_J [id number] Medica l 2022-02-01 2022-02-01 Renita Powers [facility] 30 [facility] 00:00:00 00:00:00 [facility] - Med ical MD: [address] [address] , Ph. 2022-02-01 2022-02-01 Outpatient Genaro, PRIV PRIV [id number] 00:00:00 00:00:00 Renitarosalie Powers [id number] 2022-01-31 2022-01-31 Outpatient GC_BAHC_Tod PRIV PRIV 239 [id number] [facility] 03:03:00 03:03:00 d_J [id number] Medica l 2022-01-23 2022-01-23 Outpatient GC_BAHC_Tod PRIV PRIV 239 [id number] [facility] 08:41:00 08:41:00 d_J [id number] Medica l 2022-01-23 2022-01-23 Rebeka [facility] [id number] [facility] 00:00:00 00:00:00 RAUL Alonso: Health - Med ical [address] [facility] [address] , Ph. 2022-01-23 2022-01-23 Outpatient Gavin, PRIV PRIV [id number] 00:00:00 00:00:00 Rebeka [id number] 2022-01-15 2022-01-15 Outpatient GC_BAHC_Tod PRIV PRIV 239 [id number] [facility] 09:36:00 09:36:00 d_J [id number] Medica l 2022-01-09 2022-01-09 Outpatient GC_BAHC_Tod PRIV PRIV 239 [id number] [facility] 01:32:00 01:32:00 d_J [id number] Medica l 2022-01-09 2022-01-09 Rebeka [facility] [id number] [facility] 00:00:00 00:00:00 RAUL Alonso: Health - Med ical [address] [address] , Ph. 2022-01-09 2022-01-09 Outpatient Gavin PRIV PRIV [id number] 00:00:00 00:00:00 Rebeka [id number] 2022-01-01 2022-01-01 Outpatient GC_BAHC_Tod PRIV PRIV 239 [id number] [facility] 10:43:00 10:43:00 d_J [id number] Medica l 2021-12-22 2021-12-22 Outpatient GC_BAHC_Tod PRIV PRIV 239 [id number] [facility] 09:18:00 09:18:00 d_J [id number] Medica l 2021-12-22 2021-12-22 Outpatient Gavin, PRIV PRIV [id number] 00:00:00 00:00:00 Rebeka [id number] 2021-12-22 2021-12-22 Rebeka [facility] [id number] [facility] 00:00:00 00:00:00 RAUL Alonso: Health - Med ical [address] [address] , Ph. 2021-12-17 2021-12-17 Outpatient GC_BAHC_Tod PRIV PRIV 239 [id number] [facility] 10:44:00 10:44:00 d_J [id number] Medica l 2021-12-11 2021-12-11 Outpatient GC_BAHC_Tod PRIV PRIV 239 [id number] [facility] 10:58:00 10:58:00 d_J [id number] Medica l 2021-12-09 2021-12-09 Outpatient GC_BAHC_Tod PRIV PRIV 239 [id number] [facility] 11:41:00 11:41:00 d_J [id number] Medica l 2021-12-08 2021-12-08 Outpatient GC_BAHC_Tod PRIV PRIV 239 [id number] [facility] 03:29:00 03:29:00 d_J [id number] Medica l 2021-12-08 2021-12-08 Rebeka [facility] [id number] [facility] 00:00:00 00:00:00 RAUL Alonso: Health - Med ical [address] [facility] [address] , Ph. 2021-12-08 2021-12-08 Outpatient Gavin, PRIV PRIV [id number] [id number] 00:00:00 00:00:00 Rebeka [id number] 2021-12-06 2021-12-06 Outpatient GC_BAHC_Tod PRIV PRIV 239 [id number] [facility] 06:57:00 06:57:00 d_J [id number] Medica l 2021-12-06 2021-12-06 Outpatient Genaro, PRIV PRIV [id number] 00:00:00 00:00:00 Renita Powers [id number] 2021-12-06 2021-12-06 Renita Powers [facility] [id number] [facility] 00:00:00 00:00:00 [facility] - Med ical MD: [address] [facility] [address] , Ph. 2021-12-05 2021-12-05 Outpatient GC_BAHC_Tod PRIV PRIV 239 [id number] [facility] 07:35:00 07:35:00 d_J [id number] Medica l 2021-12-03 2021-12-03 Outpatient GC_BAHC_Tod PRIV PRIV 239 [id number] [facility] 10:43:00 10:43:00 d_J [id number] Medica l 2021-12-02 2021-12-02 Outpatient GC_BAHC_Tod PRIV PRIV 239 [id number] [facility] 10:44:00 10:44:00 d_J [id number] Medica l 2021-12-01 2021-12-01 Outpatient GC_BAHC_Tod PRIV PRIV 239 [id number] [facility] 02:27:00 02:27:00 d_J [id number] Medica l 2021-12-01 2021-12-01 [facility] 429 [facility] 00:00:00 00:00:00 RAUL Alonso: Health - Med ical [address] [facility] [address] , Ph. 2021-11-24 2021-11-24 Outpatient GC_BAHC_Tod PRIV PRIV 239 [id number] [facility] 05:33:00 05:33:00 d_J [id number] Medica l 2021-11-24 2021-11-24 Outpatient NUBIA Alonso [id number] 00:00:00 00:00:00 Rebeka [id number] 2021-11-24 2021-11-24 Rebeka [facility] [id number] [facility] 00:00:00 00:00:00 RAUL Alonso: Health - Med ical [address] [facility] [address] , Ph. 2021-11-20 2021-11-20 Outpatient GC_BAHC_Tod PRIV PRIV 239 [id number] [facility] 02:39:00 02:39:00 dAlfonso [id number] Medica l 2021-11-16 2021-11-16 Outpatient GC_BAHC_Tod PRIV PRIV 239 [id number] [facility] 12:47:00 12:47:00 d_Vicki [id number] Medica l 2021-11-16 2021-11-16 Outpatient Phan, PRIV PRIV [id number] 00:00:00 00:00:00 Kirstie [id number] Romelia [id number] 0000-04-14 2021-11-16 Outpatient Phan, PRIV PRIV [id number] 00:00:00 00:00:00 Kirstie [id number] Romelia [id number] 1894-04-14 2021-11-16 Kirstie [facility] 14 [facility] 00:00:00 00:00:00 [facility] al Sylvester, GC_BAHC_Sea [employer] MARK[employer] CONSULTANT: [address] [place] [address] , Ph. 2021-11-15 2021-11-15 Outpatient GC_BAHC_Tod PRIV PRIV 239 [id number] [facility] 05:04:00 05:04:00 Dai [id number] Medica l 2021-11-13 2021-11-13 Outpatient GC_BAHC_Spa PRIV PRIV 239 [id number] [facility] 05:44:00 05:44:00 Scarlet [id number] Medica l 2021-04-24 2021-04-24 Outpatient KRISHNA SMILEY SLEParvin SLE [id number] SLE 00:00:00 00:00:00 JENNIFER 2021-04-02 2021-04-11 [facility] Katrin Peters [facility] [id number] [facility] 16:50:00 13:59:00 Encounter Tanvi Rodriguezman, Kathy edical Zindpriya, [facility] 2021-04-02 2021-04-02 [facility] [id number] 00:00:00 00:00:00 Only [facility] 2019-04-03 2019-04-03 Ambulatory nullFlavo MNA [id number] [facility] 19:00:00 19:00:00 Pre-Reg r Neurology 08 [facility] 2019-04-03 2019-04-03 Ambulatory nullFlavo MNA [id number] [facility] 19:00:00 19:00:00 Pre-Reg r Neurology 08 [facility] 2019-04-03 2019-04-03 Outpatient MHIE MHIE [id number] [facility] 14:00:00 14:00:[address] [place] [address] 2019-04-03 2019-04-03 Outpatient CARMEN BerriosSCHDONIS MISCHER [id number] 14:00:00 14:00:00 Rishabh Wang 2019-01-01 2019-01-02 Outpatient nullFlavo MNA [id number] [facility] 19:15:00 04:59:59 r Neurology 07 [facility] 2019-01-01 2019-01-02 Outpatient nullFlavo MNA [id number] [facility] 19:15:00 04:59:59 r Neurology 07 [facility] 2019-01-01 2019-01-01 Outpatient CARMEN BerriosSCHDONIS MISCHER [id number] 14:15:00 23:59:59 Rishabh Wang 2019-01-01 2019-01-01 Outpatient MHIE MHIE [id number] [facility] 14:15:00 14:15:00 07 [facility] 2018-09-03 2018-09-04 Outpatient nullFlavo MNA [id number] [facility] 20:15:00 05:59:59 r Neurology 06 [facility] 2018-09-03 2018-09-04 Outpatient nullFlavo MNA [id number] [facility] 20:15:00 05:59:59 r Neurology 06 [facility] 2018-09-03 2018-09-03 Outpatient DENA BerriosMISCHER MISCHER [id number] 14:15:00 23:59:59 Rishabh Jim Wang 2018-09-03 2018-09-03 Outpatient MHIE MHIE [id number] [facility] 14:15:00 14:15:00 06 cordell Bangura 2018-08-27 2018-08-28 Outpatient nullFlavo MNA [id number] [facility] 21:15:00 05:59:59 r Neurology 05 cordell Bangura 2018-08-27 2018-08-28 Outpatient nullFlavo MNA [id number] [facility] 21:15:00 05:59:59 r Neurology 05 cordell Bangura 2018-08-27 2018-08-27 [facility] [id number] 15:15:00 23:59:59 Rishabh Batool Wang 2018-08-27 2018-08-27 Outpatient MHIE MHIE [id number] [facility] 15:15:00 15:15:00 05 cordell Bangura 2018-08-08 2018-08-10 Phone nullFlavo MNA [id number] [facility] 21:31:00 05:59:59 Message r Neurology 01 cordell Bangura 2018-08-08 2018-08-10 Phone nullFlavo MNA [id number] [facility] 21:31:00 05:59:59 Message r Neurology 01 cordell Bangura 2018-08-08 2018-08-09 Outpatient MHMISCHER MHMISCHER [id number] 15:31:00 23:59:59 2018-07-18 2018-07-18 Ambulatory nullFlavo MNA [id number] [facility] 16:00:00 16:00:00 Pre-Reg r Neurology 04 cordell Givensann 2018-07-18 2018-07-18 Ambulatory nullFlavo MNA [id number] [facility] 16:00:00 16:00:00 Pre-Reg r Neurology 04 cordell [place] 2018-07-18 2018-07-18 Outpatient MHIE MHIE [id number] [facility] 10:00:00 10:00:00 Sherly Bangura 2018-07-18 2018-07-18 [facility] [id number] 10:00:00 10:00:00 Rishabh Sherly Felipe 2018-07-10 2018-07-10 Ambulatory nullFlavo MNA [id number] [facility] 17:00:00 17:00:00 Pre-Reg r Neurology 03 l Nina Givensann 2018-07-10 2018-07-10 Ambulatory nullFlavo MNA [id number] [facility] 17:00:00 17:00:00 Pre-Reg r Neurology 03 l Nina Givensann 2018-07-10 2018-07-10 Outpatient MHIE OLINDA [id number] [facility] 11:00:00 11:00:00 03 cordell Willem 2018-07-10 2018-07-10 [facility] [id number] 11:00:00 11:00:00 Rishabh 03 Felipe 2018-05-29 2018-05-30 Outpatient nullFlavo MNA [id number] [facility] 16:30:00 04:59:59 r Neurology 02 cordell Mariposa Willem 2018-05-29 2018-05-30 Outpatient nullFlavo MNA [id number] [facility] 16:30:00 04:59:59 r Neurology 02 cordell Nina Bangura 2018-05-29 2018-05-29 [facility] [id number] 11:30:00 23:59:59 Rishabh 02 Felipe 2018-05-29 2018-05-29 Outpatient DENAIE DENAIE [id number] [facility] 11:30:00 11:30:00 02 cordell Bangura 2018-02-21 2018-02-21 Outpatient DENAIE DENAIE [id number] [facility] 10:30:00 10:30:00 01 cordell Bangura 2018-02-21 2018-02-21 Outpatient DENAIE DENAIE [id number] [facility] 10:30:00 10:30:00 01 cordell Bangura 2018-01-10 2018-01-10 Outpatient DENAIE DENAIE [id number] [facility] 11:00:00 11:00:00 00 cordell Bangura 2018-01-10 2018-01-10 Outpatient MHIE MHIE [id number] [facility] 11:00:00 11:00:00 00 cordell Bangura Results Test Description Test Time Test Comments Results Result Comments Source POC-Glucose meter 2021-04-11 11:13:00 Test Item Value Reference Range Interpretation Comme nts POC-Glucose Meter (test code = 227 mg/dL 70-110 H : TESTED AT [facility] [address] [facility] [address], [address]70 30: Swing Ride Operator/Techni albina ID = [id number] for DUANE ROMERO PERKINS Lab Interpretation (test code = Abnormal 39048-3) [facility] [id number] 11:13:00 Test Item Value Reference Range Interpretation Comments POC-Glucose Meter (test 227 mg/dL 70-110 H : TE STED AT [facility] code = 1538) [address] [place] [address], 770 30: Swing Ride Operator/Techni albina ID = [id number] for DUANE ROMERO PERKINS Lab Interpretation (test Abnormal code = 07473-7) [facility]-GLUCOSE [id number] 11:13:00 Test Item Value Reference Range Interpretation Comments POC-GLUCOSE METER 227 mg/dL 70-110 H : [facility] ([facility]) (test code = [facility], [facility]) [address]: Swing Ride Operator/Techni albina ID = [id number] for MASON MCLEAN POCT-GLUCOSE [id number] 08:35:00 Test Item Value Reference Range Interpretation Comments POC-GLUCOSE METER 131 mg/dL 70-110 H : [facility] ([facility]) (test code = [facility], [facility]) [address]: Swing Ride Operator/Techni albina ID = [id number] for Ab patrick Susannah POCT-GLUCOSE [id number] 20:28:00 Test Item Value Reference Range Interpretation Comments POC-GLUCOSE METER 217 mg/dL 70-110 H : [facility] ([facility]) (test code = [facility], [facility]) [address]: Swing Ride Operator/Techni albina ID = [id number] for [place] (contract)Joel POCT-GLUCOSE [id number] 20:18:00 Test Item Value Reference Range Interpretation Comments POC-GLUCOSE METER 217 mg/dL 70-110 H : Notified RN/MD: ([facility]) (test code = TESTED AT [facility] 6720 1538) [facility], [address]: Swing Ride Operator/Techni albina ID = [id number] for KELSEA SANDOVAL POCT-GLUCOSE [id number] 19:40:00 Test Item Value Reference Range Interpretation Comments POC-GLUCOSE METER 168 mg/dL 70-110 H : TESTED A T [facility] 6720 (BEAKER) (test code = [facility], 1538) [address]: Swing Ride Operator/Techni albina ID = [id number] for Ga lvan (contract), Amb er POCT-GLUCOSE [id number] 13:09:00 Test Item Value Reference Range Interpretation Comments POC-GLUCOSE METER 189 mg/dL 70-110 H : TESTED A T [facility] 6720 (BEAKER) (test code = [facility], 1538) [address]: Swing Ride Operator/Techni albina ID = [id number] for An Hortencia branch POCT-GLUCOSE [id number] 07:51:00 Test Item Value Reference Range Interpretation Comments POC-GLUCOSE METER 180 mg/dL 70-110 H : TESTED A T [facility] 6720 (BEAKER) (test code = [facility], 1538) [address]: Swing Ride Operator/Techni albina ID = [id number] for Ga lvan (contract), Amb er POCT-GLUCOSE [id number] 21:12:00 Test Item Value Reference Range Interpretation Comments POC-GLUCOSE METER 168 mg/dL 70-110 H : TESTED A T [facility] 6720 (BEAKER) (test code = [facility], 1538) [address]: Swing Ride Operator/Techni albnia ID = [id number] for MS IBI, MNCEDISI POCT-GLUCOSE [id number] 16:37:00 Test Item Value Reference Range Interpretation Comments POC-GLUCOSE METER 102 mg/dL 70-110 : TESTED A T [facility] 6720 (BEAKER) (test code = [facility], 1538) [address]: Swing Ride Operator/Techni albina ID = [id number] for DE NNISJENNIFER POCT-GLUCOSE [id number] 12:13:00 Test Item Value Reference Range Interpretation Comments POC-GLUCOSE METER 147 mg/dL 70-110 H : TESTED A T [facility] 6720 (BEAKER) (test code = [facility], 1538) [address]: Swing Ride Operator/Techni albina ID = [id number] for DE NNIS, JENNIFER Comprehensive metabolic [id number] 10:38:00 Test Item Value Reference Range Interpretation Comments Protein, Total (test 7.1 See_Comment [Autom ated code = 2885-2) message] The system which generated this result transmit key reference range : 6.0 - 8.3 gm/dL . The reference range was not u sed to interpret th is result as normal/abnormal . Albumin (test code = 3.2 g/dL 3.5-5.0 L 17226-3) Alkaline Phosphatase 58 U/L 40-150 (test code = 6768-6) Total Bilirubin (test 1.4 mg/dL 0.2-1.2 H code = 1975-2) Sodium (test code = 139 meq/L 428-839 8416-2) Potassium (test code 3.9 meq/L 3.5-5.1 = 2823-3) Chloride (test code = 104 meq/L 98-107 2075-0) CO2 (test code = 26 meq/L 22-29 8-9) BUN (test code = 14 mg/dL 7-21 3094-0) Creatinine (test code 0.95 mg/dL 0.57-1.25 = 2160-0) Glucose (test code = 149 mg/dL 70-105 H 2345-7) Calcium (test code = 8.4 mg/dL 8.4-10.2 57582-7) AST (test code = 97 U/L 5-34 H 1920-8) ALT (test code = 87 U/L 6-55 H 1742-6) EGFR (test code = 95 mL/min/1.73 [place] [address]-7) NOT ACCURATE CREATININE CLEARANCE IN PREDICTING GLOMERULAR FILTRATION RATE . ESTIMATED GFR I S NOT APPLICABLE FOR DIALYSIS PATIEN TS. REID (test code = REID) Swing Ride Operator ID - AAHAMID Lab Interpretation Abnormal (test code = 76286-7) [facility] 10:38:00 Test Item Value Reference Range Interpretation Comments Magnesium (test code = 1.7 mg/dL 1.6-2.6 32304-1) REID (test code = REID) Swing Ride Operator ID - AAHAMID Lab Interpretation (test Normal code = 76711-1) [facility] 10:38:00 Test Item Value Reference Range Interpretation Comments Phosphorus (test code = 2.6 mg/dL 2.3-4.7 2777-1) REID (test code = REID) Swing Ride Operator ID - AAHAMID Lab Interpretation (test Normal code = 28071-4) [facility] [id number] 10:38:00 Test Item Value Reference Range Interpretation Comments Protein, Total (test 7.1 See_Comment [Autom ated code = 2885-2) message] The system which generated this result transmit key reference range : 6.0 - 8.3 gm/dL . The reference range was not u sed to interpret th is result as normal/abnormal . Albumin (test code = 3.2 g/dL 3.5-5.0 L 22020-3) Alkaline Phosphatase 58 U/L 40-150 (test code = 6768-6) Total Bilirubin (test 1.4 mg/dL 0.2-1.2 H code = 1975-2) Sodium (test code = 139 meq/L 401-927 9246-2) Potassium (test code 3.9 meq/L 3.5-5.1 = 2823-3) Chloride (test code = 104 meq/L 98-107 2075-0) CO2 (test code = 26 meq/L 22-29 2028-9) BUN (test code = 14 mg/dL 7-21 3094-0) Creatinine (test code 0.95 mg/dL 0.57-1.25 = 2160-0) Glucose (test code = 149 mg/dL 70-105 H 2345-7) Calcium (test code = 8.4 mg/dL 8.4-10.2 33275-5) AST (test code = 97 U/L 5-34 H 1920-8) ALT (test code = 87 U/L 6-55 H 1742-6) EGFR (test code = 95 mL/min/1.[place] [address]-2) NOT ACCURATE CREATININE CLEARANCE IN PREDICTING GLOMERULAR FILTRATION RATE . ESTIMATED GFR I S NOT APPLICABLE FOR DIALYSIS PATIEN TS. REID (test code = REID) Swing Ride Operator ID - AAHAMID Lab Interpretation Abnormal (test code = 73842-6) [facility] 10:38:00 Test Item Value Reference Range Interpretation Comments Magnesium (test code = 1.7 mg/dL 1.6-2.6 72456-2) REID (test code = REID) Swing Ride Operator ID - AAHAMID Lab Interpretation (test Normal code = 63741-5) [facility] 10:38:00 Test Item Value Reference Range Interpretation Comments Phosphorus (test code = 2.6 mg/dL 2.3-4.7 2777-1) REID (test code = REID) Swing Ride Operator ID - AAHAMID Lab Interpretation (test Normal code = 43535-6) [facility] [id number] 10:38:00 Test Item Value Reference Range Interpretation Comments TOTAL PROTEIN 7.1 gm/dL 6.0-8.3 (BEAKER) (test code = 770) ALBUMIN (BEAKER) 3.2 g/dL 3.5-5.0 L (test code = 1145) ALKALINE PHOSPHATASE 58 U/L 40-150 (BEAKER) (test code = 346) BILIRUBIN TOTAL 1.4 mg/dL 0.2-1.2 H (BEAKER) (test code = 377) SODIUM (BEAKER) (test 139 meq/L 136-145 code = 381) POTASSIUM (BEAKER) 3.9 meq/L 3.5-5.1 (test code = 379) CHLORIDE (BEAKER) 104 meq/L 98-107 (test code = 382) CO2 (BEAKER) (test 26 meq/L 22-29 code = 355) BLOOD UREA NITROGEN 14 mg/dL 7-21 (BEAKER) (test code = 354) CREATININE (BEAKER) 0.95 mg/dL 0.57-1.25 (test code = 358) GLUCOSE RANDOM 149 mg/dL 70-105 H (BEAKER) (test code = 652) CALCIUM (BEAKER) 8.4 mg/dL 8.4-10.2 (test code = 697) AST (SGOT) (BEAKER) 97 U/L 5-34 H (test code = 353) ALT (SGPT) (BEAKER) 87 U/L 6-55 H (test code = 347) EGFR (BEAKER) (test 95 mL/min/1.73 ESTIMA KEY GFR IS code = 1092) sq m NOT ACCURATE CREATININE CLEARANCE IN PREDICTING GLOMERULAR FILTRATION RATE . ESTIMATED GFR I S NOT APPLICABLE FOR DIALYSIS PATIEN TS. Swing Ride Operator ID - [id number] 10:38:00 Test Item Value Reference Range Interpretation Comments MAGNESIUM (BEAKER) (test code = 1.7 mg/dL 1.6-2.6 627) Swing Ride Operator ID - [id number] 10:38:00 Test Item Value Reference Range Interpretation Comments PHOSPHORUS (BEAKER) (test code = 2.6 mg/dL 2.3-4.7 604) Swing Ride Operator ID - AAHAMIDCBC with platelet count + automated [id number] 10:12:00 Test Item Value Reference Range Interpretation Comments WBC (test code = 6690-2) 7.2 See_Comment [A utomated message] The system Tastemaker generated this result transmitted ref erence range: 3.5 - 10 .5 K/L. The refe rence range was not u sed to interpret this result as normal/abnor mal. RBC (test code = 789-8) 4.39 See_Comment L [Au tomated message] The system Tastemaker generated this result transmitted ref erence range: 4.63 - 6 .08 M/L. The refe rence range was not u sed to interpret this result as normal/abnor mal. MCHC (test code = 786-4) 30.1 See_Comment L [A utomated message] The system Tastemaker generated this result transmitted ref erence range: 32.3 - 3 6.5 GM/DL. The refe rence range was not u sed to interpret this result as normal/abnor mal. Hematocrit (test code = 42.2 % 40.1-51.0 4544-3) MCV (test code = 787-2) 96.1 fL 79.0-92.2 H MCH (test code = 785-6) 28.9 pg 25.7-32.2 RDW (test code = 788-0) 13.9 % 11.6-14.4 Platelets (test code = 267 See_Comment [Aut omated message] 777-3) The system Tastemaker generated this result transmitted ref erence range: 150 - 45 0 K/CU MM. The referen ce range was not u sed to interpret this result as normal/abnor mal. MPV (test code = 10.4 fL 9.4-12.4 54101-9) nRBC (test code = 413) 0 See_Comment [Aut omated message] The system Tastemaker generated this result transmitted ref erence range: 0 - 0 /1 00 WBC. The refere nce range was not u sed to interpret this result as normal/abnor mal. % Neutros (test code = 65 % 429) % Lymphs (test code = 23 % 430) % Monos (test code = 7 % 431) % Eos (test code = 432) 3 % % Baso (test code = 437) 0 % # Neutros (test code = 4.73 See_Comment [Aut omated message] 670) The system Tastemaker generated this result transmitted ref erence range: 1.78 - 5 .38 K/L. The refe rence range was not u sed to interpret this result as normal/abnor mal. # Lymphs (test code = 1.65 See_Comment [Auto mated message] 414) The system Tastemaker generated this result transmitted ref erence range: 1.32 - 3 .57 K/L. The refe rence range was not u sed to interpret this result as normal/abnor mal. # Monos (test code = 0.47 See_Comment [Autom ated message] 415) The system Tastemaker generated this result transmitted ref erence range: 0.30 - 0 .82 K/L. The refe rence range was not u sed to interpret this result as normal/abnor mal. # Eos (test code = 416) 0.20 See_Comment [Au tomated message] The system Tastemaker generated this result transmitted ref erence range: 0.04 - 0 .54 K/L. The refe rence range was not u sed to interpret this result as normal/abnor mal. # Baso (test code = 417) 0.02 See_Comment [A utomated message] The system Tastemaker generated this result transmitted ref erence range: 0.01 - 0 .08 K/L. The refe rence range was not u sed to interpret this result as normal/abnor mal. Immature 2 % 0-1 H Granulocytes-Relative (test code = 2801) Lab Interpretation (test Abnormal code = 52380-8) [facility] with platelet count + automated [id number] 10:12:00 Test Item Value Reference Range Interpretation Comments WBC (test code = 6690-2) 7.2 See_Comment [A utomated message] The system [employer] generated this result transmitted ref erence range: 3.5 - 10 .5 K/L. The refe rence range was not u sed to interpret this result as normal/abnor mal. RBC (test code = 789-8) 4.39 See_Comment L [Au tomated message] The system [employer] generated this result transmitted ref erence range: 4.63 - 6 .08 M/L. The refe rence range was not u sed to interpret this result as normal/abnor mal. MCHC (test code = 786-4) 30.1 See_Comment L [A utomated message] The system [employer] generated this result transmitted ref erence range: 32.3 - 3 6.5 GM/DL. The refe rence range was not u sed to interpret this result as normal/abnor mal. Hematocrit (test code = 42.2 % 40.1-51.0 4544-3) MCV (test code = 787-2) 96.1 fL 79.0-92.2 H MCH (test code = 785-6) 28.9 pg 25.7-32.2 RDW (test code = 788-0) 13.9 % 11.6-14.4 Platelets (test code = 267 See_Comment [Aut omated message] 777-3) The system [employer] generated this result transmitted ref erence range: 150 - 45 0 K/CU MM. The referen ce range was not u sed to interpret this result as normal/abnor mal. MPV (test code = 10.4 fL 9.4-12.4 44058-1) nRBC (test code = 413) 0 See_Comment [Aut omated message] The system [employer] generated this result transmitted ref erence range: 0 - 0 /1 00 WBC. The refere nce range was not u sed to interpret this result as normal/abnor mal. % Neutros (test code = 65 % 429) % Lymphs (test code = 23 % 430) % Monos (test code = 7 % 431) % Eos (test code = 432) 3 % % Baso (test code = 437) 0 % # Neutros (test code = 4.73 See_Comment [Aut omated message] 670) The system [employer] generated this result transmitted ref erence range: 1.78 - 5 .38 K/L. The refe rence range was not u sed to interpret this result as normal/abnor mal. # Lymphs (test code = 1.65 See_Comment [Auto mated message] 414) The system [employer] generated this result transmitted ref erence range: 1.32 - 3 .57 K/L. The refe rence range was not u sed to interpret this result as normal/abnor mal. # Monos (test code = 0.47 See_Comment [Autom ated message] 415) The system Tastemaker generated this result transmitted ref erence range: 0.30 - 0 .82 K/L. The refe rence range was not u sed to interpret this result as normal/abnor mal. # Eos (test code = 416) 0.20 See_Comment [Au tomated message] The system Tastemaker generated this result transmitted ref erence range: 0.04 - 0 .54 K/L. The refe rence range was not u sed to interpret this result as normal/abnor mal. # Baso (test code = 417) 0.02 See_Comment [A utomated message] The system Tastemaker generated this result transmitted ref erence range: 0.01 - 0 .08 K/L. The refe rence range was not u sed to interpret this result as normal/abnor mal. Immature 2 % 0-1 H Granulocytes-Relative (test code = 2801) Lab Interpretation (test Abnormal code = 52076-4) [facility] W/PLT COUNT & AUTO [id number] 10:12:00 Test Item Value Reference Range Interpretation Comments WHITE BLOOD CELL COUNT (BEAKER) 7.2 K/ L 3.5-10.5 (test code = 775) RED BLOOD CELL COUNT (BEAKER) 4.39 M/ L 4.63-6.08 L (test code = 761) HEMOGLOBIN (BEAKER) (test code = 12.7 GM/DL 13.7-17.5 L 410) HEMATOCRIT (BEAKER) (test code = 42.2 % 40.1-51.0 411) MEAN CORPUSCULAR VOLUME (BEAKER) 96.1 fL 79.0-92.2 H (test code = 753) MEAN CORPUSCULAR HEMOGLOBIN 28.9 pg 25.7-32.2 (BEAKER) (test code = 751) MEAN CORPUSCULAR HEMOGLOBIN CONC 30.1 GM/DL 32.3-36.5 L (BEAKER) (test code = 752) RED CELL DISTRIBUTION WIDTH 13.9 % 11.6-14.4 (BEAKER) (test code = 412) PLATELET COUNT (BEAKER) (test 267 K/CU MM 150-450 code = 756) MEAN PLATELET VOLUME (BEAKER) 10.4 fL 9.4-12.4 (test code = 754) NUCLEATED RED BLOOD CELLS 0 /100 WBC 0-0 (BEAKER) (test code = 413) NEUTROPHILS RELATIVE PERCENT 65 % (BEAKER) (test code = 429) LYMPHOCYTES RELATIVE PERCENT 23 % (BEAKER) (test code = 430) MONOCYTES RELATIVE PERCENT 7 % (BEAKER) (test code = 431) EOSINOPHILS RELATIVE PERCENT 3 % (BEAKER) (test code = 432) BASOPHILS RELATIVE PERCENT 0 % (BEAKER) (test code = 437) NEUTROPHILS ABSOLUTE COUNT 4.73 K/ L 1.78-5.38 (BEAKER) (test code = 670) LYMPHOCYTES ABSOLUTE COUNT 1.65 K/ L 1.32-3.57 (BEAKER) (test code = 414) MONOCYTES ABSOLUTE COUNT (BEAKER) 0.47 K/ L 0.30-0.82 (test code = 415) EOSINOPHILS ABSOLUTE COUNT 0.20 K/ L 0.04-0.54 (BEAKER) (test code = 416) BASOPHILS ABSOLUTE COUNT (BEAKER) 0.02 K/ L 0.01-0.08 (test code = 417) IMMATURE GRANULOCYTES-RELATIVE 2 % 0-1 H PERCENT (BEAKER) (test code = 2801) Calcium, [id number] 10:05:00 Test Item Value Reference Range Interpretation Comments Calcium, Ion (test code = 1994-) 1.08 mmol/L 1.12-1.27 L pH, Blood (test code = 29984-3) 7.48 Lab Interpretation (test code = Abnormal 87892-3) [facility] [id number] 10:05:00 Test Item Value Reference Range Interpretation Comments Calcium, Ion (test code = 1993-10) 1.08 mmol/L 1.12-1.27 L pH, Blood (test code = 55018-6) 7.48 Lab Interpretation (test code = Abnormal 43437-4) [facility], [id number] 10:05:00 Test Item Value Reference Range Interpretation Comments CALCIUM IONIZED (BEAKER) (test 1.08 mmol/L 1.12-1.27 L code = 698) PH, BLOOD (BEAKER) (test code = 7.48 1810) POCT-GLUCOSE [id number] 08:29:00 Test Item Value Reference Range Interpretation Comments POC-GLUCOSE METER 124 mg/dL 70-110 H : TESTED A T [facility] 6720 (BEAKER) (test code = [facility], 1538) [address]: Swing Ride Operator/Techni albina ID = [id number] for ALEGRIA JENNIFER POCT-GLUCOSE [id number] 21:52:00 Test Item Value Reference Range Interpretation Comments POC-GLUCOSE METER 194 mg/dL 70-110 H : TESTED A T [facility] 6720 (BEAKER) (test code = [facility], 1538) 841[address]: Swing Ride Operator/Techni albina ID = [id number] for Grayson Orellana POCT-GLUCOSE [id number] 15:53:00 Test Item Value Reference Range Interpretation Comments POC-GLUCOSE METER 121 mg/dL 70-110 H : TESTED A T [facility] 6720 (BEAKER) (test code [facility], = 1538) [address]: Swing Ride Operator/Techni albina ID = [id number] for Yusuf Pepe POCT-GLUCOSE [id number] 11:35:00 Test Item Value Reference Range Interpretation Comments POC-GLUCOSE METER 171 mg/dL 70-110 H : TESTED A T [facility] 6720 (BEAKER) (test code [facility], = 1538) 97818: Swing Ride Operator/Techni albina ID = [id number] for Sakina Nichols, [facility] COMPREHENSIVE METABOLIC [id number] 10:13:00 Test Item Value Reference Range Interpretation Comments TOTAL PROTEIN 7.1 gm/dL 6.0-8.3 (BEAKER) (test code = 770) ALBUMIN (BEAKER) 3.2 g/dL 3.5-5.0 L (test code = 1145) ALKALINE PHOSPHATASE 61 U/L 40-150 (BEAKER) (test code = 346) BILIRUBIN TOTAL 1.3 mg/dL 0.2-1.2 H (BEAKER) (test code = 377) SODIUM (BEAKER) (test 139 meq/L 136-145 code = 381) POTASSIUM (BEAKER) 4.4 meq/L 3.5-5.1 (test code = 379) CHLORIDE (BEAKER) 105 meq/L 98-107 (test code = 382) CO2 (BEAKER) (test 28 meq/L 22-29 code = 355) BLOOD UREA NITROGEN 16 mg/dL 7-21 (BEAKER) (test code = 354) CREATININE (BEAKER) 0.91 mg/dL 0.57-1.25 (test code = 358) GLUCOSE RANDOM 219 mg/dL 70-105 H (BEAKER) (test code = 652) CALCIUM (BEAKER) 8.8 mg/dL 8.4-10.2 (test code = 697) AST (SGOT) (BEAKER) 61 U/L 5-34 H (test code = 353) ALT (SGPT) (BEAKER) 66 U/L 6-55 H (test code = 347) EGFR (BEAKER) (test 100 ESTIMATE D GFR IS code = 1092) mL/min/1.73 sq NOT ACCURA TE m CREATININE CLEARANCE IN PREDICTING GLOMERULAR FILTRATION RATE . ESTIMATED GFR I S NOT APPLICABLE FOR DIALYSIS PATIEN TS. Swing Ride Operator ID - BRYN [id number] 10:13:00 Test Item Value Reference Range Interpretation Comments MAGNESIUM (BEAKER) (test code = 1.8 mg/dL 1.6-2.6 627) Swing Ride Operator ID - BRYN [id number] 10:13:00 Test Item Value Reference Range Interpretation Comments PHOSPHORUS (BEAKER) (test code = 3.0 mg/dL 2.3-4.7 604) Swing Ride Operator ID - BRYN MCALCIUM, [id number] 09:35:00 Test Item Value Reference Range Interpretation Comments CALCIUM IONIZED (BEAKER) (test 1.18 mmol/L 1.12-1.27 code = 698) PH, BLOOD (BEAKER) (test code = 7.37 1810) CBC W/PLT COUNT & AUTO [id number] 09:29:00 Test Item Value Reference Range Interpretation Comments WHITE BLOOD CELL COUNT (BEAKER) 6.8 K/ L 3.5-10.5 (test code = 775) RED BLOOD CELL COUNT (BEAKER) 4.44 M/ L 4.63-6.08 L (test code = 761) HEMOGLOBIN (BEAKER) (test code = 12.9 GM/DL 13.7-17.5 L 410) HEMATOCRIT (BEAKER) (test code = 42.5 % 40.1-51.0 411) MEAN CORPUSCULAR VOLUME (BEAKER) 95.7 fL 79.0-92.2 H (test code = 753) MEAN CORPUSCULAR HEMOGLOBIN 29.1 pg 25.7-32.2 (BEAKER) (test code = 751) MEAN CORPUSCULAR HEMOGLOBIN CONC 30.4 GM/DL 32.3-36.5 L (BEAKER) (test code = 752) RED CELL DISTRIBUTION WIDTH 13.8 % 11.6-14.4 (BEAKER) (test code = 412) PLATELET COUNT (BEAKER) (test 247 K/CU MM 150-450 code = 756) MEAN PLATELET VOLUME (BEAKER) 10.5 fL 9.4-12.4 (test code = 754) NUCLEATED RED BLOOD CELLS 0 /100 WBC 0-0 (BEAKER) (test code = 413) NEUTROPHILS RELATIVE PERCENT 81 % (BEAKER) (test code = 429) LYMPHOCYTES RELATIVE PERCENT 13 % (BEAKER) (test code = 430) MONOCYTES RELATIVE PERCENT 3 % (BEAKER) (test code = 431) EOSINOPHILS RELATIVE PERCENT 0 % (BEAKER) (test code = 432) BASOPHILS RELATIVE PERCENT 0 % (BEAKER) (test code = 437) NEUTROPHILS ABSOLUTE COUNT 5.50 K/ L 1.78-5.38 H (BEAKER) (test code = 670) LYMPHOCYTES ABSOLUTE COUNT 0.88 K/ L 1.32-3.57 L (BEAKER) (test code = 414) MONOCYTES ABSOLUTE COUNT (BEAKER) 0.20 K/ L 0.30-0.82 L (test code = 415) EOSINOPHILS ABSOLUTE COUNT 0.01 K/ L 0.04-0.54 L (BEAKER) (test code = 416) BASOPHILS ABSOLUTE COUNT (BEAKER) 0.01 K/ L 0.01-0.08 (test code = 417) IMMATURE GRANULOCYTES-RELATIVE 2 % 0-1 H PERCENT (BEAKER) (test code = 2801) POCT-GLUCOSE [id number] 07:56:00 Test Item Value Reference Range Interpretation Comments POC-GLUCOSE METER 167 mg/dL 70-110 H : TESTED A T [facility] 6720 (BEAKER) (test code [facility], = 1538) 485[address]: Swing Ride Operator/Techni albina ID = [id number] for Yusuf Pepe POCT-GLUCOSE [id number] 21:38:00 Test Item Value Reference Range Interpretation Comments POC-GLUCOSE METER 108 mg/dL 70-110 : TESTED A T [facility] 6720 (BEAKER) ([facility] = [facility], 1538) [address]: Swing Ride Operator/Techni albina ID = [id number] for YoelchengnaundionneGrayson Blood Culture - Routine (Right Venipuncture)2021-04-07 21:00:00 Test Item Value Reference Range Interpretation Comments Result (test code = No growth in 5 days 6463-4) [facility] ([facility]ipuncture) 2021-04-07 21:00:00 Test Item Value Reference Range Interpretation Comments Result (test code = No growth in 5 days 6463-4) [facility] [id number] 21:00:00 Test Item Value Reference Range Interpretation Comments CULTURE (BEAKER) (test No growth in 5 days code = 1095) BLOOD [id number] 20:01:00 Test Item Value Reference Range Interpretation Comments CULTURE (BEAKER) (test No growth in 5 days code = 1095) POCT-GLUCOSE [id number] 14:51:00 Test Item Value Reference Range Interpretation Comments POC-GLUCOSE METER 118 mg/dL 70-110 H : TESTED A T [facility] 6720 (BEAKER) (test code = [facility], 153) 917[address]: Swing Ride Operator/Techni albina ID = [id number] for Marie lton (contract), Vannessa shaan POCT-GLUCOSE [id number] 12:02:00 Test Item Value Reference Range Interpretation Comments POC-GLUCOSE METER 173 mg/dL 70-110 H : TESTED A T [facility] 6720 (BEAKER) (test code = [facility], 1538) 73108: Swing Ride Operator/Techni albina ID = [id number] for Wa lton (contract), Vannessa shaan POCT-GLUCOSE [id number] 08:00:00 Test Item Value Reference Range Interpretation Comments POC-GLUCOSE METER 123 mg/dL 70-110 H : TESTED A T [facility] 6720 (BEAKER) (test code = [facility], 153) 84396: Swing Ride Operator/Techni albina ID = [id number] for Wa lton (contract), Vannessa shaan POCT-GLUCOSE [id number] 22:45:00 Test Item Value Reference Range Interpretation Comments POC-GLUCOSE METER 129 mg/dL 70-110 H : TESTED A T [facility] 6720 (BEAKER) (test code = [facility], 153) 53815: Swing Ride Operator/Techni albina ID = [id number] for CHRISTY LECHUGA POCT-GLUCOSE [id number] 16:24:00 Test Item Value Reference Range Interpretation Comments POC-GLUCOSE METER 153 mg/dL 70-110 H : TESTED A T [facility] 6720 (BEAKER) (test code = [facility], 153) 71865: Swing Ride Operator/Techni albina ID = [id number] for MARIA A VELALENE POCT-GLUCOSE [id number] 11:37:00 Test Item Value Reference Range Interpretation Comments POC-GLUCOSE METER 200 mg/dL 70-110 H : TESTED A T [facility] 6720 (BEAKER) (test code = [facility], 153) 20419: Swing Ride Operator/Techni albina ID = [id number] for GLASER-DIPTI JONES, LENA C-Reactive [id number] 11:19:00 Test Item Value Reference Range Interpretation Comments CRP (test code = 676) 1.98 mg/dL 0.00-0.50 H REID (test code = REID) Swing Ride Operator ID - AAHAMID Lab Interpretation (test Abnormal code = 94249-1) [facility] [id number] 11:19:00 Test Item Value Reference Range Interpretation Comments CRP (test code = 676) 1.98 mg/dL 0.00-0.50 H REID (test code = REID) Swing Ride Operator ID - AAHAMID Lab Interpretation (test Abnormal code = 58262-3) [facility]COMPRE[facility]IVE METABOLIC [id number] 11:19:00 Test Item Value Reference Range Interpretation Comments TOTAL PROTEIN 7.2 gm/dL 6.0-8.3 (BEAKER) (test code = 770) ALBUMIN (BEAKER) 3.2 g/dL 3.5-5.0 L (test code = 1145) ALKALINE PHOSPHATASE 56 U/L 40-150 (BEAKER) (test code = 346) BILIRUBIN TOTAL 1.1 mg/dL 0.2-1.2 (BEAKER) (test code = 377) SODIUM (BEAKER) (test 140 meq/L 136-145 code = 381) POTASSIUM (BEAKER) 3.8 meq/L 3.5-5.1 (test code = 379) CHLORIDE (BEAKER) 106 meq/L 98-107 (test code = 382) CO2 (BEAKER) (test 26 meq/L 22-29 code = 355) BLOOD UREA NITROGEN 20 mg/dL 7-21 (BEAKER) (test code = 354) CREATININE (BEAKER) 1.12 mg/dL 0.57-1.25 (test code = 358) GLUCOSE RANDOM 232 mg/dL 70-105 H (BEAKER) (test code = 652) CALCIUM (BEAKER) 8.6 mg/dL 8.4-10.2 (test code = 697) AST (SGOT) (BEAKER) 84 U/L 5-34 H (test code = 353) ALT (SGPT) (BEAKER) 54 U/L 6-55 (test code = 347) EGFR (BEAKER) (test 79 mL/min/1.73 ESTIMA KEY GFR IS code = 1092) sq m NOT ACCURATE CREATININE CLEARANCE IN PREDICTING GLOMERULAR FILTRATION RATE . ESTIMATED GFR I S NOT APPLICABLE FOR DIALYSIS PATIEN TS. Swing Ride Operator ID - [id number] 11:19:00 Test Item Value Reference Range Interpretation Comments MAGNESIUM (BEAKER) (test code = 1.9 mg/dL 1.6-2.6 627) Swing Ride Operator ID - [id number] 11:19:00 Test Item Value Reference Range Interpretation Comments PHOSPHORUS (BEAKER) (test code = 2.1 mg/dL 2.3-4.7 L 604) Swing Ride Operator ID - AAHAMIDC-REACTIVE [id number] 11:19:00 Test Item Value Reference Range Interpretation Comments C-REACTIVE PROTEIN (BEAKER) (test 1.98 mg/dL 0.00-0.50 H code = 676) Swing Ride Operator ID - AAHAMIDCALCIUM, [id number] 11:08:00 Test Item Value Reference Range Interpretation Comments CALCIUM IONIZED (BEAKER) (test 1.14 mmol/L 1.12-1.27 code = 698) PH, BLOOD ([facility]) (test code = 7.41 1810) POCT-GLUCOSE [id number] 07:37:00 Test Item Value Reference Range Interpretation Comments POC-GLUCOSE METER 148 mg/dL 70-110 H : TESTED A T [facility] 67 ([facility]) (test code = [facility], 1538) [address]: Swing Ride Operator/Techni albina ID = [id number] for LE IJA, AURA 2D Echo W/Doppler(CW/PW/Color)2021-04-05 18:45:00Ejection FractionSLEH ECHO [facility] W/Doppler(CW/PW/Color)2021-04-05 18:45:00Ejection FractionSLEH ECHO HEARTLAB [facility] [id number] 16:20:00 Test Item Value Reference Range Interpretation Comments POC-GLUCOSE METER 253 mg/dL 70-110 H : Notified RN/MD: ([facility]) (test code = TESTED AT [facility] 6720 1538) [facility], [address]: Swing Ride Operator/Techni albina ID = [id number] for Tesfaye anthony (contract), Cricket pateln B-type Natriuretic Factor (BNP)2021-04-05 14:23:00 Test Item Value Reference Range Interpretation Comments BNP (test code = 65344-0) 28 pg/mL 0-100 REID (test code = REID) Swing Ride Operator ID - SHANAE Lab Interpretation (test Normal code = 31910-4) [facility] (BNP)2021-04-05 14:23:00 Test Item Value Reference Range Interpretation Comments BNP (test code = 87154-5) 28 pg/mL 0-100 REID (test code = REID) Swing Ride Operator ID - SHANAE Lab Interpretation (test Normal code = 77703-6) [facility] NATRIURETIC FACTOR (BNP)2021-04-05 14:23:00 Test Item Value Reference Range Interpretation Comments B-TYPE NATRIURETIC PEPTIDE (BEAKER) 28 pg/mL 0-100 (test code = 700) Swing Ride Operator ID - EMERSONBlood gas, [id number] 13:24:00 Test Item Value Reference Range Interpretation Comments pH, Jean (test code = 7.40 7.32-7.42 2746-6) pCO2, Jean (test code = 47 See_Comment [Aut omated message] 755) The system [employer] h generated this result transmit key reference range : 41 - 51 mm Hg. The reference range was not used to interpret this result as normal/abnormal . pO2, Jean (test code = 72 See_Comment H [Auto mated message] 9785-2) The system Gauzy[employer] h generated this result transmit key reference range : 25 - 40 mm Hg. The reference range was not used to interpret this result as normal/abnormal . O2 Sat, Jean (test code 94.6 % 40.0-70.0 H = 2711-0) HCO3, Jean (test code = 28 mmol/L 21-29 18762-6) Base Excess, Jean (test 2.5 mmol/L -2.0-3.0 code = 1927-3) Patient Temperature 36.7 (test code = 8310-5) FIO2 (test code = 1819) 100 Lab Interpretation Abnormal (test code = 55990-1) [facility], [id number] 13:24:00 Test Item Value Reference Range Interpretation Comments pH, Jean (test code = 7.40 7.32-7.42 2746-6) pCO2, Jean (test code = 47 See_Comment [Aut omated message] 755) The system Gauzy[employer] h generated this result transmit key reference range : 41 - 51 mm Hg. The reference range was not used to interpret this result as normal/abnormal . pO2, Jean (test code = 72 See_Comment H [Auto mated message] 2705-2) The system Gauzy[employer] h generated this result transmit key reference range : 25 - 40 mm Hg. The reference range was not used to interpret this result as normal/abnormal . O2 Sat, Jean (test code 94.6 % 40.0-70.0 H = 2711-0) HCO3, Jean (test code = 28 mmol/L 21-29 97298-9) Base Excess, Jean (test 2.5 mmol/L -2.0-3.0 code = 1927-3) Patient Temperature 36.7 (test code = 8310-5) FIO2 (test code = 1819) 100 Lab Interpretation Abnormal (test code = 06502-0) [facility] HospitalBL[facility] GAS, [id number] 13:24:00 Test Item Value Reference Range Interpretation Comments PH VENOUS (BEAKER) (test code = 7.40 7.32-7.42 701) PCO2 VENOUS (BEAKER) (test code = 47 mm Hg 41-51 755) PO2 VENOUS (BEAKER) (test code = 72 mm Hg 25-40 H 702) O2 SATURATION VENOUS (BEAKER) 94.6 % 40.0-70.0 H (test code = 703) HCO3 VENOUS (BEAKER) (test code = 28 mmol/L 21-29 705) BASE EXCESS VENOUS (BEAKER) (test 2.5 mmol/L -2.0-3.0 code = 704) PATIENT TEMPERATURE (BEAKER) (test 36.7 code = 1818) FIO2 (BEAKER) (test code = 1819) 100.0 Urine [id number] 11:17:00 Test Item Value Reference Range Interpretation Comments Result (test code = 6463-4) No growth REID (test code = REID) [facility] HospitalUrine [id number] 11:17:00 Test Item Value Reference Range Interpretation Comments Result (test code = 6463-4) No growth REID (test code = REID) [facility] HospitalVenous doppler legs [id number] 08:23:57 Ejection [facility]ractionSLEH ECHO [facility]ARTLAB [facility] Venous doppler legs [id number] 08:23:57Ejection FractionSLEH ECHO HEARTLAB [facility] [id number] 08:08:00 Test Item Value Reference Range Interpretation Comments POC-GLUCOSE METER 206 mg/dL 70-110 H : Notified RN/MD: (JEANNINE) (test code = TESTED AT [facility] 6720 1538) [facility], [address]: Swing Ride Operator/Techni albina ID = [id number] for Tesfaye anthony (contract)Cricket RAD, CHEST, 1 VIEW, NON [id number] 07:43:00Reason for exam:- >cracklesShould this be performed at the bedside?->Yes [facility] : 1950 Sex: MFINAL REPORT RAD, CHEST, 1 VIEW, NON DEPT INDICATION: crackles COMPARISON: Prior day's exam FINDINGS: Portable frontal view of the chest. IMPRESSION: Support Lines: None Lungs and pleura: Worsening interstitial edema. Small left effusion. No pneumothorax.Heart and mediastinum: Stable contours. Additional findings: None. Signed: JR Gutierres Robert MDReport Verified Date/Time: 04/05/2021 07:43:47 Reading Location: [facility] Radiology Reading Room REHENSIVE METABOLIC [id number] 03:34:00 Test Item Value Reference Range Interpretation Comments TOTAL PROTEIN 7.4 gm/dL 6.0-8.3 (BEAKER) (test code = 770) ALBUMIN (BEAKER) 3.2 g/dL 3.5-5.0 L (test code = 1145) ALKALINE PHOSPHATASE 57 U/L 40-150 (BEAKER) (test code = 346) BILIRUBIN TOTAL 1.4 mg/dL 0.2-1.2 H (BEAKER) (test code = 377) SODIUM (BEAKER) (test 139 meq/L 136-145 code = 381) POTASSIUM (BEAKER) 4.3 meq/L 3.5-5.1 (test code = 379) CHLORIDE (BEAKER) 105 meq/L 98-107 (test code = 382) CO2 (BEAKER) (test 27 meq/L 22-29 code = 355) BLOOD UREA NITROGEN 21 mg/dL 7-21 (BEAKER) (test code = 354) CREATININE (BEAKER) 1.21 mg/dL 0.57-1.25 (test code = 358) GLUCOSE RANDOM 193 mg/dL 70-105 H (BEAKER) (test code = 652) CALCIUM (BEAKER) 8.4 mg/dL 8.4-10.2 (test code = 697) AST (SGOT) (BEAKER) 46 U/L 5-34 H (test code = 353) ALT (SGPT) (BEAKER) 34 U/L 6-55 (test code = 347) EGFR (BEAKER) (test 72 mL/min/1.73 ESTIMA KEY GFR IS code = 1092) sq m NOT ACCURATE CREATININE CLEARANCE IN PREDICTING GLOMERULAR FILTRATION RATE . ESTIMATED GFR I S NOT APPLICABLE FOR DIALYSIS PATIEN TS. Swing Ride Operator ID - CARA [id number] 03:34:00 Test Item Value Reference Range Interpretation Comments MAGNESIUM (BEAKER) (test code = 1.8 mg/dL 1.6-2.6 627) Swing Ride Operator ID - CARA [id number] 03:34:00 Test Item Value Reference Range Interpretation Comments PHOSPHORUS (BEAKER) (test code = 2.1 mg/dL 2.3-4.7 L 604) Swing Ride Operator ID - CARA LCALCIUM, [id number] 03:21:00 Test Item Value Reference Range Interpretation Comments CALCIUM IONIZED (BEAKER) (test 1.10 mmol/L 1.12-1.27 L code = 698) PH, BLOOD (BEAKER) (test code = 7.35 1810) CBC W/PLT COUNT & AUTO [id number] 03:14:00 Test Item Value Reference Range Interpretation Comments WHITE BLOOD CELL COUNT (BEAKER) 7.8 K/ L 3.5-10.5 (test code = 775) RED BLOOD CELL COUNT (BEAKER) 4.17 M/ L 4.63-6.08 L (test code = 761) HEMOGLOBIN (BEAKER) (test code = 12.1 GM/DL 13.7-17.5 L 410) HEMATOCRIT (BEAKER) (test code = 40.0 % 40.1-51.0 L 411) MEAN CORPUSCULAR VOLUME (BEAKER) 95.9 fL 79.0-92.2 H (test code = 753) MEAN CORPUSCULAR HEMOGLOBIN 29.0 pg 25.7-32.2 (BEAKER) (test code = 751) MEAN CORPUSCULAR HEMOGLOBIN CONC 30.3 GM/DL 32.3-36.5 L (BEAKER) (test code = 752) RED CELL DISTRIBUTION WIDTH 14.5 % 11.6-14.4 H (BEAKER) (test code = 412) PLATELET COUNT (BEAKER) (test 211 K/CU MM 150-450 code = 756) MEAN PLATELET VOLUME (BEAKER) 11.3 fL 9.4-12.4 (test code = 754) NUCLEATED RED BLOOD CELLS 0 /100 WBC 0-0 (BEAKER) (test code = 413) NEUTROPHILS RELATIVE PERCENT 80 % (BEAKER) (test code = 429) LYMPHOCYTES RELATIVE PERCENT 15 % (BEAKER) (test code = 430) MONOCYTES RELATIVE PERCENT 5 % (BEAKER) (test code = 431) EOSINOPHILS RELATIVE PERCENT 0 % (BEAKER) (test code = 432) BASOPHILS RELATIVE PERCENT 0 % (BEAKER) (test code = 437) NEUTROPHILS ABSOLUTE COUNT 6.22 K/ L 1.78-5.38 H (BEAKER) (test code = 670) LYMPHOCYTES ABSOLUTE COUNT 1.12 K/ L 1.32-3.57 L (BEAKER) (test code = 414) MONOCYTES ABSOLUTE COUNT (BEAKER) 0.36 K/ L 0.30-0.82 (test code = 415) EOSINOPHILS ABSOLUTE COUNT 0.01 K/ L 0.04-0.54 L (BEAKER) (test code = 416) BASOPHILS ABSOLUTE COUNT (BEAKER) 0.00 K/ L 0.01-0.08 L (test code = 417) IMMATURE GRANULOCYTES-RELATIVE 1 % 0-1 PERCENT (BEAKER) (test code = 2801) Vancomycin level, [id number] 20:11:00 Test Item Value Reference Range Interpretation Comments Vancomycin Tr (test code = 9.4 ug/mL 10.0-20.0 L 4092-3) REID (test code = REID) [employer]ing [employer] Operator ID - BS Lab Interpretation (test Abnormal code = 80520-2) [facility] [id number] 20:11:00 Test Item Value Reference Range Interpretation Comments Vancomycin Tr (test code = 9.4 ug/mL 10.0-20.0 L 4092-3) REID (test code = REID) [employer]ing Ride Operator ID - BS Lab Interpretation (test Abnormal code = 38839-8) [facility] [id number] 20:11:00 Test Item Value Reference Range Interpretation Comments VANCOMYCIN TROUGH (BEAKER) (test 9.4 ug/mL 10.0-20.0 L code = 522) [employer] Operator ID - BSCALCIUM, [id number] 19:47:00 Test Item Value Reference Range Interpretation Comments CALCIUM IONIZED (BEAKER) (test 1.10 mmol/L 1.12-1.27 L code = 698) PH, BLOOD (BEAKER) (test code = 7.35 1810) Sputum Culture + Gram [id number] 18:50:00 Test Item Value Reference Range Interpretation Comments Result (test code = Oropharyngeal 6463-4) contamination, specimen rejected. Recollect requested. Gram Stain Result <1+ gram positive cocci in (test code = 1123) [facility] [id number] 18:50:00 Test Item Value Reference Range Interpretation Comments Result (test code = Oropharyngeal 6463-4) contamination, specimen rejected. Recollect requested. Gram Stain Result <1+ gram positive cocci in (test code = 1123) [facility]AM [id number] 18:50:00 Test Item Value Reference Range Interpretation Comments CULTURE (BEAKER) Oropharyngeal (test code = 1095) contamination, specimen rejected. Recollect requested. GRAM STAIN RESULT <1+ WBCs (BEAKER) (test code = 1123) GRAM STAIN RESULT 10-15 epithelial cells (BEAKER) (test code = 69052) GRAM STAIN RESULT <1+ gram positive cocci (BEAKER) (test code in chains = 41015) GRAM STAIN RESULT <1+ gram positive cocci (BEAKER) (test code in clusters = 394106) POCT-GLUCOSE [id number] 17:06:00 Test Item Value Reference Range Interpretation Comments POC-GLUCOSE METER 167 mg/dL 70-110 H : Notified RN/MD: (BEJASPAL) (test code = TESTED AT [facility] 6720 1538) [facility], [address]: Swing Ride Operator/Techni albina ID = [id number] for [place] [facility] (contract), [facility] CT, CHEST WITH IV CONTRAST- PE TEST [id number] 14:12:00Unlisted Reason for Exam - Click Yes and Enter Reason Below->No [facility] : 1950 Sex: MFINAL REPORT TECHNIQUE: CT of the chest WITH intravenous contrast (pulmonary embolism protocol). Dose modulation, iterative reconstruction, and/or weight-based adjustment of the mA/kV was utilized to reduce the radiation dose to as low as reasonably achievable. INDICATION: 70-year-old man with PE suspected, high pretest probability. COMPARISON: Chest radiograph from earlier same date. FINDINGS: LINES/TUBES: None. PULMONARY ARTERIES: Proximal to the bifurcation of the main pulmonary artery, the main pulmonary artery is prominent and measures 3.3 cm in diameter. No definite filling defects within the pulmonary arteries, however evaluation of segmental/subsegmental branches in the lung bases is limited by motion artifact. LUNGS AND AIRWAYS: Patent central airways. Focal consolidative opacity in the left upper lobe. Patchy groundglass opacities scattered in both lungs. Mild dependent atelectasis in the lower lobes. PLEURA: Pleural spaces are clear. HEART AND MEDIASTINUM: Visualized thyro id gland is normal. Mildly prominent right hilar lymph nodes are nonspecific and likely reactive. Cardiomegaly. No pericardial effusion. Mild atherosclerotic calcifications in the thoracic aorta and coronary arteries. BONES AND SOFT TISSUES: No acute osseous abnormality. Bilateral gynecomastia. 1.9 x 2.4 cm lipoma in the left upper thoracic paraspinal musculature. 4.7 x 2.2 cm lipoma in the left infraspinatus musculature. UPPER ABDOMEN: Decreased attenuation of the liver, consistent with hepatic steatosis. IMPRESSION:No definite pulmonary embolus, however evaluation of bibasilar segmental/subsegmental branches is limited by motion artifact. Groundglass opacities in both lungs. Differential considerations include pneumonia and pulmonary edema. Focal consolidative opacity in the left upper lobe, suspicious for pneumonia. Hepatic steatosis. Signed: Narinder Erazoepsheyla Verified Date/Time: 04/04/2021 14:12:15 Reading Location: [address] Body Reading Room High Sensitivity Troponin I ([facility]/Pankaj Only)2021-04-04 13:28:00 Test Item Value Reference Range Interpretation Comments Troponin I HS (test 31 pg/ml See_Comment [Automa key code = 56609-5) message] The system which generated this result transmitted reference range : <=35. The reference range was not used to interpret this result as normal/abnormal . REID (test code = Swing Ride Operator ID - REID) PIWILLIAM LThe JUMPBASTING FACING BASTER STAT High Sensitivity Troponin-I results should be used in conjunction with other diagnostic information such as ECG, clinical observations and information, and patient symptoms to aid in the diagnosis of OH. Lab Interpretation Normal (test code = 33566-9) [facility]Pankaj Only[facility] 2021-04-04 13:28:00 Test Item Value Reference Range Interpretation Comments Troponin I HS (test 31 pg/ml See_Comment [Automa key code = 09773-4) message] The system which generated this result transmitted reference range : <=35. The reference range was not used to interpret this result as normal/abnormal . REID (test code = Swing Ride Operator ID - REID) CARA [employer] JUMPBASTING FACING BASTER STAT High Sensitivity Troponin-I results should be used in conjunction with other diagnostic information such as ECG, clinical observations and information, and patient symptoms to aid in the diagnosis of OH. Lab Interpretation Normal (test code = 26096-3) [facility] TROPONIN [id number] 13:28:00 Test Item Value Reference Range Interpretation Comments HIGH SENSITIVITY 31 pg/ml See_Comment [Automated message] TROPONIN I (test code = The system which [id number]) generated this result transmitted ref erence range: <=35. Th e reference range was not used to int erpret this result as normal/abnormal . Swing Ride Operator ID - CARA [employer]he JUMPBASTING FACING BASTER STAT High Sensitivity Troponin-I results should be used in conjunction with other diagnostic information such as ECG, clinical observations and information, and patient symptoms to aid in the diagnosis of OH.[id number] 13:05:00 Test Item Value Reference Range Interpretation Comments D-Dimer, Quant (test 0.55 See_Comment H [Autom ated code = 34086-4) message] The system which generated this result transmitted reference range : <0.50 MG/L FEU. The reference range was not used to interpr et this result as normal/abnormal . REID (test code = REID) Intended Use: The D-Dimer Assay can be used to aid in the diagnosis of Deep Vein Thrombosis (DVT) and Pulmonary Embolism Disease (PED).In patients with low pre-test probability, various studies concerning STA Liatest D-dimer test have reported that with a cutoff value of 0.50 MG/L FEU, the Negative Predictive Value (NPV) regarding the exclusion of thrombosis is within 95-100% range. Lab Interpretation Abnormal (test code = 46057-3) [facility][id number] 13:05:00 Test Item Value Reference Range Interpretation Comments D-Dimer, Quant (test 0.55 See_Comment H [Autom ated code = 66257-5) message] The system which generated this result transmitted reference range : <0.50 MG/L FEU. The reference range was not used to interpr et this result as normal/abnormal . REID (test code = REID) Intended Use: The D-Dimer Assay can be used to aid in the diagnosis of Deep Vein Thrombosis (DVT) and Pulmonary Embolism Disease (PED).In patients with low pre-test probability, various studies concerning STA Liatest D-dimer test have reported that with a cutoff value of 0.50 MG/L FEU, the Negative Predictive Value (NPV) regarding the exclusion of thrombosis is within 95-100% range. Lab Interpretation Abnormal (test code = 68409-6) [facility]-[id number] 13:05:00 Test Item Value Reference Range Interpretation Comments D-DIMER QUANTITATIVE (BEAKER) 0.55 MG/L FEU <0.50 H (test code = 671) Intended Use: The D-Dimer Assay can be used to aid in the diagnosis of Deep Vein Thrombosis (DVT) and Pulmonary Embolism Disease (PED).In patients with low pre- test probability, various studies concerning STA Liatest D-dimer test have reported that with a cutoff value of 0.50 MG/L FEU, the Negative Predictive Value (NPV) regarding the exclusion of thrombosis is within 95-100% range. CALCIUM, [id number] 12:47:00 Test Item Value Reference Range Interpretation Comments CALCIUM IONIZED (BEAKER) (test code < mmol/L 1.12-1.27 LL = 698) PH, BLOOD (BEAKER) (test code = 7.22 1810) POCT-GLUCOSE [id number] 12:24:00 Test Item Value Reference Range Interpretation Comments POC-GLUCOSE METER 211 mg/dL 70-110 H : Notified RN/MD: (JEANNINE) (test code = TESTED AT [facility] 6720 1538) [facility], [address]: Swing Ride Operator/Techni albina ID = [id number] for [place] [facility] (contract), [place] POCT-GLUCOSE [id number] 11:03:00 Test Item Value Reference Range Interpretation Comments POC-GLUCOSE METER 218 mg/dL 70-110 H : TESTED Carl Blood [facility] 6720 (BEAKER) (test code = [place], 1538) [address]: Swing Ride Operator/Techni albina ID = [id number] for [place] (agency), Ivana [id number] 10:30:00 Test Item Value Reference Range Interpretation Comments MAGNESIUM (BEAKER) 2.2 mg/dL 1.6-2.6 Specimen slightly (test code = 627) hemolyzed Swing Ride Operator ID - BRYN MOperator ID - CARA LRAD, CHEST, 1 VIEW, NON [id number] 07:38:00Reason for exam:->cracklesShould this be performed at the bedside?->Yes[facility] : 1950 Sex: MFINAL REPORT RAD, CHEST, 1 VIEW, NON DEPT INDICATION: crackles COMPARISON: Prior day's exam FINDINGS: Portable frontal view of the chest. IMPRESSION: Support Lines: Stable. Lungs and pleura:Patchy bilateral airspace disease but improved from the prior date. Trace left effusion. No pneumotho rax.Heart and mediastinum: Stable contours. Additional findings: None. Signed: JR Gutierres Robert MDReport Verified Date/Time: 04/04/2021 07:38:02 Reading Location: [facility] Radiology Reading Room COMPREHENSIVE METABOLIC PANEL 2021-04-04 05:38:00 Test Item Value Reference Range Interpretation Comments TOTAL PROTEIN 7.3 gm/dL 6.0-8.3 Specimen sligh tly (BEAKER) (test code = hemoly zed 770) ALBUMIN (BEAKER) 3.2 g/dL 3.5-5.0 L Specimen sl ightly (test code = 1145) hemolyzed ALKALINE PHOSPHATASE 59 U/L 40-150 (BEAKER) (test code = 346) BILIRUBIN TOTAL 1.5 mg/dL 0.2-1.2 H Specimen sli ghtly (BEAKER) (test code = hemoly zed 377) SODIUM (BEAKER) (test 137 meq/L 136-145 code = 381) POTASSIUM (BEAKER) 4.5 meq/L 3.5-5.1 Specimen slightly (test code = 379) hemolyzed CHLORIDE (BEAKER) 103 meq/L 98-107 (test code = 382) CO2 (BEAKER) (test 26 meq/L 22-29 code = 355) BLOOD UREA NITROGEN 20 mg/dL 7-21 (BEAKER) (test code = 354) CREATININE (BEAKER) 1.41 mg/dL 0.57-1.25 H Specimen slightly (test code = 358) hemolyzed GLUCOSE RANDOM 263 mg/dL 70-105 H (BEAKER) (test code = 652) CALCIUM (BEAKER) 8.0 mg/dL 8.4-10.2 L (test code = 697) AST (SGOT) (BEAKER) 35 U/L 5-34 H Specimen slightly (test code = 353) hemolyzed ALT (SGPT) (BEAKER) 34 U/L 6-55 Specimen slightly (test code = 347) hemolyzed EGFR (BEAKER) (test 60 mL/min/1.73 ESTIMA KEY GFR IS code = 1092) sq m NOT ACCURATE CREATININE CLEARANCE IN PREDICTING GLOMERULAR FILTRATION RATE . ESTIMATED GFR I S NOT APPLICABLE FOR DIALYSIS PATIEN TS. Swing Ride Operator ID - BRYN MCBC W/PLT COUNT & AUTO [id number] 04:51:00 Test Item Value Reference Range Interpretation Comments WHITE BLOOD CELL COUNT (BEAKER) 12.3 K/ L 3.5-10.5 H (test code = 775) RED BLOOD CELL COUNT (BEAKER) 4.08 M/ L 4.63-6.08 L (test code = 761) HEMOGLOBIN (BEAKER) (test code = 11.9 GM/DL 13.7-17.5 L 410) HEMATOCRIT (BEAKER) (test code = 39.5 % 40.1-51.0 L 411) MEAN CORPUSCULAR VOLUME (BEAKER) 96.8 fL 79.0-92.2 H (test code = 753) MEAN CORPUSCULAR HEMOGLOBIN 29.2 pg 25.7-32.2 (BEAKER) (test code = 751) MEAN CORPUSCULAR HEMOGLOBIN CONC 30.1 GM/DL 32.3-36.5 L (BEAKER) (test code = 752) RED CELL DISTRIBUTION WIDTH 14.0 % 11.6-14.4 (BEAKER) (test code = 412) PLATELET COUNT (BEAKER) (test 186 K/CU MM 150-450 code = 756) MEAN PLATELET VOLUME (BEAKER) 10.7 fL 9.4-12.4 (test code = 754) NUCLEATED RED BLOOD CELLS 0 /100 WBC 0-0 (BEAKER) (test code = 413) NEUTROPHILS RELATIVE PERCENT 91 % (BEAKER) (test code = 429) LYMPHOCYTES RELATIVE PERCENT 5 % (BEAKER) (test code = 430) MONOCYTES RELATIVE PERCENT 4 % (BEAKER) (test code = 431) EOSINOPHILS RELATIVE PERCENT 0 % (BEAKER) (test code = 432) BASOPHILS RELATIVE PERCENT 0 % (BEAKER) (test code = 437) NEUTROPHILS ABSOLUTE COUNT 11.11 K/ L 1.78-5.38 H (BEAKER) (test code = 670) LYMPHOCYTES ABSOLUTE COUNT 0.57 K/ L 1.32-3.57 L (BEAKER) (test code = 414) MONOCYTES ABSOLUTE COUNT (BEAKER) 0.53 K/ L 0.30-0.82 (test code = 415) EOSINOPHILS ABSOLUTE COUNT 0.00 K/ L 0.04-0.54 L (BEAKER) (test code = 416) BASOPHILS ABSOLUTE COUNT (BEAKER) 0.01 K/ L 0.01-0.08 (test code = 417) IMMATURE GRANULOCYTES-RELATIVE 1 % 0-1 PERCENT (BEAKER) (test code = 2801) POCT-GLUCOSE [id number] 21:40:00 Test Item Value Reference Range Interpretation Comments POC-GLUCOSE METER 222 mg/dL 70-110 H : TESTED A T [facility] 6720 (BEAKER) (test code [facility], = 1538) [address]: Swing Ride Operator/Techni albina ID = [id number] for Perico hayes (agency)Maryjane HIGH SENSITIVITY TROPONIN [id number] 17:18:00 Test Item Value Reference Range Interpretation Comments HIGH SENSITIVITY 44 pg/ml See_Comment H [Automated message] TROPONIN I (test code = The system which 3340015) generated this result transmitted ref erence range: <=35. Th e reference range was not used to int erpret this result as normal/abnormal . Swing Ride Operator ID - DBThe JUMPBASTING FACING BASTER STAT High Sensitivity Troponin-I results should be used in conjunctionwith other diagnostic information such as ECG, clinical observations and information, and patient symptoms to aid in the diagnosis of OH.POCT-GLUCOSE [id number] 16:41:00 Test Item Value Reference Range Interpretation Comments POC-GLUCOSE METER 230 mg/dL 70-110 H : TESTED A T [facility] 6720 (BEAKER) (test code = [facility] Dante [facility], 153) [address]: Swing Ride Operator/Techni albina ID = [id number] for [employer] more, Elsy 2D Echo W/Doppler(CW/PW/Color)2021-04-03 16:17:55Ejection FractionSLEH ECHO [facility]Do[facility](CW/PW/Color)2021-04-03 16:17:55Ejection FractionSLEH ECHO HEARTLAB [facility] [id number] 13:56:00 Test Item Value Reference Range Interpretation Comments POC-GLUCOSE METER 263 mg/dL 70-110 H : TESTED A T [facility] 6720 (BEAKER) (test code = [facility] Dante [facility], 1538) [address]: Swing Ride Operator/Techni albina ID = [id number] for Ma rtinez, Elsy POCT-GLUCOSE [id number] 09:34:00 Test Item Value Reference Range Interpretation Comments POC-GLUCOSE METER 276 mg/dL 70-110 H : TESTED A T [facility] 6720 (BEAKER) (test code = [facility] Dante [facility], 1538) [address]: Swing Ride Operator/Techni albina ID = [id number] for Elsy Nicholas HIGH SENSITIVITY TROPONIN [id number] 09:02:00 Test Item Value Reference Range Interpretation Comments HIGH SENSITIVITY 50 pg/ml See_Comment H [Automated message] TROPONIN I (test code = The system which 4693936) generated this result transmitted ref erence range: <=35. Th e reference range was not used to int erpret this result as normal/abnormal . Swing Ride Operator ID - BRYN MThe JUMPBASTING FACING BASTER STAT High Sensitivity Troponin-I results should be used in conjunction with other diagnostic information such as ECG, clinical observations and information, and patient symptoms to aid in the diagnosis of OH.Hemoglobin [id number] 08:17:00 Test Item Value Reference Range Interpretation Comments Hemoglobin A1C (test code = 4548-4) 7.2 % 4.3-6.1 H Lab Interpretation (test code = Abnormal 71282-7) [facility] [id number] 08:17:00 Test Item Value Reference Range Interpretation Comments Hemoglobin A1C (test code = 4548-4) 7.2 % 4.3-6.1 H Lab Interpretation (test code = Abnormal 05980-1) [facility]MO[facility] [id number] 08:17:00 Test Item Value Reference Range Interpretation Comments HEMOGLOBIN A1C (BEAKER) (test code = 7.2 % 4.3-6.1 H 368) RAD, CHEST, 1 VIEW, NON [id number] 08:00:00Reason for exam:- >cracklesShould this be performed at the bedside?->Yes [facility] : 1950 Sex: MFINAL REPORT RAD, CHEST, 1 VIEW, NON DEPT INDICATION: crackles COMPARISON: Prior day's exam FINDINGS: Portable frontal view of the chest. IMPRESSION: Support Lines: None Lungs and pleura: Dense airspace disease in the left upper lobe is stable. Congestive changes are again noted bilaterally. No pneumothorax.Heart and mediastinum: Stable contours. Additional findings: None. Signed: JR Gutierres Robert MDReport Verified Date/Time: 04/03/2021 08:00:07 Reading Location: [facility] Radiology Reading Room [facility] function panel 2021-04-03 06:39:00 Test Item Value Reference Range Interpretation Comments Protein, Total (test 7.7 See_Comment [Autom ated code = 2885-2) message] The system which generated this result transmit key reference range : 6.0 - 8.3 gm/dL . The reference range was not u sed to interpret th is result as normal/abnormal . Albumin (test code = 3.4 g/dL 3.5-5.0 L 65657-2) Total Bilirubin (test 1.5 mg/dL 0.2-1.2 H code = 1974-2) Bilirubin, Direct 0.9 mg/dL 0.1-0.5 H (test code = 1968-7) Alkaline Phosphatase 64 U/L 40-150 (test code = 6768-6) AST (test code = 44 U/L 5-34 H 1920-8) ALT (test code = 45 U/L 6-55 1742-6) REID (test code = REID) Swing Ride Operator ID - DB Lab Interpretation Abnormal (test code = 50147-1) [facility] function [id number] 06:39:00 Test Item Value Reference Range Interpretation Comments Protein, Total (test 7.7 See_Comment [Autom ated code = 2885-2) message] The system which generated this result transmit key reference range : 6.0 - 8.3 gm/dL . The reference range was not u sed to interpret th is result as normal/abnormal . Albumin (test code = 3.4 g/dL 3.5-5.0 L 90730-5) Total Bilirubin (test 1.5 mg/dL 0.2-1.2 H code = 1975-2) Bilirubin, Direct 0.9 mg/dL 0.1-0.5 H (test code = 1967-7) Alkaline Phosphatase 64 U/L 40-150 (test code = 6768-6) AST (test code = 44 U/L 5-34 H 1920-8) ALT (test code = 45 U/L 6-55 1742-6) REID (test code = REID) Swing Ride Operator ID - DB Lab Interpretation Abnormal (test code = 90873-5) [facility] [id number] 06:39:00 Test Item Value Reference Range Interpretation Comments TOTAL PROTEIN 7.7 gm/dL 6.0-8.3 (BEAKER) (test code = 770) ALBUMIN (BEAKER) 3.4 g/dL 3.5-5.0 L (test code = 1145) ALKALINE PHOSPHATASE 64 U/L 40-150 (BEAKER) (test code = 346) BILIRUBIN TOTAL 1.5 mg/dL 0.2-1.2 H (BEAKER) (test code = 377) SODIUM (BEAKER) (test 138 meq/L 136-145 code = 381) POTASSIUM (BEAKER) 4.2 meq/L 3.5-5.1 (test code = 379) CHLORIDE (BEAKER) 103 meq/L 98-107 (test code = 382) CO2 (BEAKER) (test 25 meq/L 22-29 code = 355) BLOOD UREA NITROGEN 19 mg/dL 7-21 (BEAKER) (test code = 354) CREATININE (BEAKER) 1.49 mg/dL 0.57-1.25 H (test code = 358) GLUCOSE RANDOM 305 mg/dL 70-105 H (BEAKER) (test code = 652) CALCIUM (BEAKER) 8.0 mg/dL 8.4-10.2 L (test code = 697) AST (SGOT) (BEAKER) 44 U/L 5-34 H (test code = 353) ALT (SGPT) (BEAKER) 45 U/L 6-55 (test code = 347) EGFR (BEAKER) (test 57 mL/min/1.73 ESTIMA KEY GFR IS code = 1092) sq m NOT ACCURATE CREATININE CLEARANCE IN PREDICTING GLOMERULAR FILTRATION RATE . ESTIMATED GFR I S NOT APPLICABLE FOR DIALYSIS PATIEN TS. Swing Ride Operator ID - DBHEPATIC FUNCTION [id number] 06:39:00 Test Item Value Reference Range Interpretation Comments TOTAL PROTEIN (BEAKER) (test code = 7.7 gm/dL 6.0-8.3 770) ALBUMIN (BEAKER) (test code = 1145) 3.4 g/dL 3.5-5.0 L BILIRUBIN TOTAL (BEAKER) (test code 1.5 mg/dL 0.2-1.2 H = 377) BILIRUBIN DIRECT (BEAKER) (test 0.9 mg/dL 0.1-0.5 H code = 706) ALKALINE PHOSPHATASE (BEAKER) (test 64 U/L 40-150 code = 346) AST (SGOT) (BEAKER) (test code = 44 U/L 5-34 H 353) ALT (SGPT) (BEAKER) (test code = 45 U/L 6-55 347) Swing Ride Operator ID - DBCBC W/PLT COUNT & AUTO [id number] 04:32:00 Test Item Value Reference Range Interpretation Comments WHITE BLOOD CELL COUNT (BEAKER) 9.1 K/ L 3.5-10.5 (test code = 775) RED BLOOD CELL COUNT (BEAKER) 4.44 M/ L 4.63-6.08 L (test code = 761) HEMOGLOBIN (BEAKER) (test code = 12.8 GM/DL 13.7-17.5 L 410) HEMATOCRIT (BEAKER) (test code = 42.7 % 40.1-51.0 411) MEAN CORPUSCULAR VOLUME (BEAKER) 96.2 fL 79.0-92.2 H (test code = 753) MEAN CORPUSCULAR HEMOGLOBIN 28.8 pg 25.7-32.2 (BEAKER) (test code = 751) MEAN CORPUSCULAR HEMOGLOBIN CONC 30.0 GM/DL 32.3-36.5 L (BEAKER) (test code = 752) RED CELL DISTRIBUTION WIDTH 13.9 % 11.6-14.4 (BEAKER) (test code = 412) PLATELET COUNT (BEAKER) (test 221 K/CU MM 150-450 code = 756) MEAN PLATELET VOLUME (BEAKER) 10.4 fL 9.4-12.4 (test code = 754) NUCLEATED RED BLOOD CELLS 0 /100 WBC 0-0 (BEAKER) (test code = 413) NEUTROPHILS RELATIVE PERCENT 90 % (BEAKER) (test code = 429) LYMPHOCYTES RELATIVE PERCENT 6 % (BEAKER) (test code = 430) MONOCYTES RELATIVE PERCENT 3 % (BEAKER) (test code = 431) EOSINOPHILS RELATIVE PERCENT 0 % (BEAKER) (test code = 432) BASOPHILS RELATIVE PERCENT 0 % (BEAKER) (test code = 437) NEUTROPHILS ABSOLUTE COUNT 8.21 K/ L 1.78-5.38 H (BEAKER) (test code = 670) LYMPHOCYTES ABSOLUTE COUNT 0.57 K/ L 1.32-3.57 L (BEAKER) (test code = 414) MONOCYTES ABSOLUTE COUNT (BEAKER) 0.29 K/ L 0.30-0.82 L (test code = 415) EOSINOPHILS ABSOLUTE COUNT 0.00 K/ L 0.04-0.54 L (BEAKER) (test code = 416) BASOPHILS ABSOLUTE COUNT (BEAKER) 0.01 K/ L 0.01-0.08 (test code = 417) IMMATURE GRANULOCYTES-RELATIVE 0 % 0-1 PERCENT (BEAKER) (test code = 2801) Respiratory Panel [id number] 23:56:00 Test Item Value Reference Range Interpretation Comments Human Metapneumovirus Not detected Not detected, (test code = 72327-5) Equivocal Rhinovirus (test code = Not detected Not detected, 28884-4) Equivocal INFLUENZA A (NO Not detected Not detected, SUBTYPE) (test code = Equivocal 58374-8) Influenza A subtype H1 (test code = 89716-5) Influenza A Subtype H3 (test code = 68373-3) Influenza A Subtype H1-2009 (test code = 36855-5) Influenza B (test code Not detected Not detected, = 49426-4) Equivocal Respiratory Syncytial Not detected Not detected, Virus (test code = Equivocal 02890-2) Parainfluenza Virus 1 Not detected Not detected, (test code = 05214-8) Equivocal Parainfluenza Virus 2 Not detected Not detected, (test code = 33889-3) Equivocal Parainfluenza virus 3 Not detected Not detected, (test code = 28866-2) Equivocal Parainfluenza Virus 4 Not detected Not detected, (test code = 49076-2) Equivocal Adenovirus (test code = Not detected Not detected, 68723-6) Equivocal Coronavirus 229E (test Not detected Not detected, code = 73985-8) Equivocal Coronavirus HKU1 (test Not detected Not detected, code = 71344-6) Equivocal Coronavirus NL63 (test Not detected Not detected, code = 46332-9) Equivocal Coronavirus OC43 (test Not detected Not detected, code = 01055-8) Equivocal Bordetella Pertussis Not detected Not detected, (test code = 84100-6) Equivocal Chlamydophila Not detected Not detected, Pneumoniae (test code = Equivocal 65019-0) Mycoplasma Pneumoniae Not detected Not detected, (test code = 30584-1) Equivocal REID (test code = REID) Other viruses and bacteria not targeted by this PCR panel cannot be excluded; therefore clinical correlation and follow up of serology, culture results, and other molecular studies is required. The results are not intended to be used as the sole means for clinical diagnosis or patient management decisions. This sample was tested at the [facility] Molecular Diagnostics Laboratory using the [employer] Instruments[employer] Respiratory Panel. It is FDA cleared and has been verified and approved by the [facility] Molecular Diagnostics Laboratory for clinical use on nasopharyngeal swab specimens. The performance of the FilmArray RP has not been established in individuals who received influenza vaccine. Recent administration of a nasal influenza vaccine may cause false positive results for Influenza A and/orInfluenza B. [facility] [id number] 23:56:00 Test Item Value Reference Range Interpretation Comments Human Metapneumovirus Not detected Not detected, (test code = 39542-1) Equivocal Rhinovirus (test code = Not detected Not detected, 11434-9) Equivocal INFLUENZA A (NO Not detected Not detected, SUBTYPE) (test code = Equivocal 59547-6) Influenza A subtype H1 (test code = 31907-4) Influenza A Subtype H3 (test code = 43167-8) Influenza A Subtype H1-2009 (test code = 37810-3) Influenza B (test code Not detected Not detected, = 34106-0) Equivocal Respiratory Syncytial Not detected Not detected, Virus (test code = Equivocal 09340-2) Parainfluenza Virus 1 Not detected Not detected, (test code = 26909-3) Equivocal Parainfluenza Virus 2 Not detected Not detected, (test code = 26023-1) Equivocal Parainfluenza virus 3 Not detected Not detected, (test code = 96963-8) Equ[employer]ocal Parainfluenza Virus 4 Not detected Not detected, (test code = 39862-4) Equivocal Adenovirus (test code = Not detected Not detected, 98751-4) Equivocal Coronavirus 229E (test Not detected Not detected, code = 90790-4) Equivocal Coronavirus HKU1 (test Not detected Not detected, code = 34373-4) Equivocal Coronavirus NL63 (test Not detected Not detected, code = 57449-5) Equivocal Coronavirus OC43 (test Not detected Not detected, code = 54070-5) Equivocal Bordetella Pertussis Not detected Not detected, (test code = 29817-2) Equivocal Chlamydophila Not detected Not detected, Pneumoniae (test code = Equivocal 83992-7) Mycoplasma Pneumoniae Not detected Not detected, (test code = 35893-7) Equivocal REID (test code = REID) Other viruses and bacteria not targeted by this PCR panel cannot be excluded; therefore clinical correlation and follow up of serology, culture results, and other molecular studies is required. The results are not intended to be used as the sole means for clinical diagnosis or patient management decisions. This sample was tested at the [facility] Molecular Diagnostics Laboratory using the [employer] Instruments[employer] Respiratory Panel. It is FDA cleared and has been verified and approved by the [facility] Diagnostics [facility] for clinical use on nasopharyngeal swab specimens. The performance of the FilmArray RP has not been established in individuals who received influenza vaccine. Recent administration of a nasal influenza vaccine may cause false positive results for Influenza A and/orInfluenza B. [facility] [id number] 23:56:00 Test Item Value Reference Range Interpretation Comments HUMAN METAPNEUMOVIRUS Not detected Not detected, (BEAKER) (test code = 2683) Equivocal RHINOVIRUS (BEAKER) (test Not detected Not detected, code = 2684) Equivocal INFLUENZA A (BEAKER) (test Not detected Not detected, code = 2685) Equivocal INFLUENZA A (NO SUBTYPE) (test code = 3606) INFLUENZA A SUBTYPE H1 (BEAKER) (test code = 2686) INFLUENZA A SUBTYPE H3 (BEAKER) (test code = 2687) INFLUENZA A SUBTYPE H1-2009 (BEAKER) (test code = 3198) INFLUENZA B (BEAKER) (test Not detected Not detected, code = 2688) Equivocal RESPIRATORY SYNCYTIAL VIRUS Not detected Not detected, (BEAKER) (test code = 3199) Equivocal PARAINFLUENZA VIRUS 1 Not detected Not detected, (BEAKER) (test code = 2691) Equivocal PARAINFLUENZA VIRUS 2 Not detected Not detected, (BEAKER) (test code = 2692) Equivocal PARAINFLUENZA VIRUS 3 Not detected Not detected, (BEAKER) (test code = 2693) Equivocal PARAINFLUENZA VIRUS 4 Not detected Not detected, (BEAKER) (test code = 3200) Equivocal ADENOVIRUS (BEAKER) (test Not detected Not detected, code = 2694) Equivocal CORONAVIRUS 229E (BEAKER) Not detected Not detected, (test code = 3201) Equivocal CORONAVIRUS HKU1 (BEAKER) Not detected Not detected, (test code = 3202) Equivocal CORONAVIRUS NL63 (BEAKER) Not detected Not detected, (test code = 3203) Equivocal CORONAVIRUS OC43 (BEAKER) Not detected Not detected, (test code = 3204) Equivocal BORDETELLA PERTUSSIS Not detected Not detected, (BEAKER) (test code = 3205) Equivocal CHLAMYDOPHILA PNEUMONIAE Not detected Not detected, (BEAKER) (test code = 3206) Equivocal MYCOPLASMA PNEUMONIAE Not detected Not detected, (BEAKER) (test code = 3207) Equivocal Other viruses and bacteria not targeted by this PCR panel cannot be excluded; therefore clinical correlation and follow up of serology, culture results, and other molecular studies is required. The results are not intended to be used as the sole means for clinical diagnosis or patient management decisions. This sample was tested at the [facility] Molecular Diagnostics Laboratory using the [employer] FilmArray Respiratory Panel. It is FDA cleared and has been verified and approved by the [facility] Molecular Diagnostics Laboratory for clinical use on nasopharyngeal swab specimens.The performance of the FilmArrayRP has not been established in individuals who received influenza vaccine. Recent administration of a nasal influenza vaccine may cause false positive results for Influenza A and/orInfluenza B.SARS-COV2/RT-PCR ([facility])2021-04-02 23:52:00 Test Item Value Reference Range Interpretation Comments SARS-COV2/RT-PCR A positive COVID-19 test in (test code = 8669308) a prev iously positive patient in the last 3 months indicate s continuous shedding, rathe r than infectivity. Re peat testing is not allowed in these cases per hospi pamela policy for non-ID phys icians. Isolation is no t needed if patient is pres enting >10 days (or >20 da ys for severely immuno compromised) from initial CO VID-19 symptom onset ( per CDC and hospital policy ). This test has been authorized by FDA under an EUA for use by authorized laboratories. This test is only authorized for the duration of the declaration that circumstances exist justifying the authorization of emergency use of in vitro diagnostic tests for detection and/or diagnosis of COVID-19 under Section 564(b)(1) of the Federal Food, Drug and Cosmetic Act, 21 U.S.C. 360bbb-3(b)(1), unless the authorization is terminated or revoked sooner. Fact Sheet for Healthcare Providers: https://www.[employer] m/Documents/Xpert%20Xpress%20SARS%20CoV-2/Fact%20Sheets/3023802%84YODT-CEH-9%20 HEALTHCARE%20PROVIDERS%20FACT%20SHEET.pdf Fact Sheet for Healthcare Patients: https://www.[employer]/Documents/Xpert%20Xp ress%20SARS%20CoV-2/Fact%20Sheets/302-3801%83WYBZ-LFH-7%20PATIENT%20FACT%20SHEET .pdfSARS-CoV2/RT-PCR (Symptomatic ONLY)2021-04-02 23:52:00 SARS-COV2/RT-PCRComment: A positive COVID-19 test in a previously positive patient in the last 3 months indicates continuous shedding, rather than infectivity. Repeat testing is not allowed in these cases per hospital policy for non-ID physicians. Isolation is not needed if patient is presenting >10 days (or >20 days for severely immunocompromised) from initial COVID-19 symptom onset (per CDC and hospital policy). [facility] has been authorized by FDA under an EUA for use by authorized laboratories. This test is only authorized for the duration of the declaration that circumstances exist justifying the authorization of emergency use of in vitro diagnostic tests for detection and/or diagnosis of COVID-19 under Section 564(b)(1) of the Federal Food, Drug and Cosmetic Act, 21 U.S.C. 360bbb- 3(b)(1), unless the authorization is terminated or revoked sooner. Fact Sheet for Healthcare Providers: https://www.[employer]/Documents/Xpert%20Xpress%20SARS%20CoV -2/Fact%20Sheets/302-3802%06PBEH-TGW-8%20HEALTHCARE%20PROVIDERS%20FACT%20SHEET.p df Fact Sheet for Healthcare Patients: https://www.[employer]iva/Documents/Xpert%20Xpress%20SARS%20CoV-2/Fact%20Sheets/30 2-3801%21QAAQ-FYK-7%20PATIENT%20FACT%20SHEET.pdfSouthern Inyo Hospital SARS-CoV2/RT-PCR (Symptomatic ONLY)2021-04-02 23:52:00SARS-COV2/RT-PCRComment: A positive COVID-19 test in a previously positive patient in the last 3 months indicates continuous shedding, rather than infectivity. Repeat testing is not allowed in these cases per hospital policy for non-ID physicians. Isolation is not needed if patient is presenting >10 days (or >20 days for severely immunocompromised) from initial COVID-19 symptom onset (per CDC and hospital policy). [facility] test has been authorized by FDA under an EUA for use by authorized laboratories. This test is only authorized for the duration of the declaration that circumstances exist justifying the authorization of emergency use of in vitro diagnostic tests for detection and/or diagnosis of COVID-19 under Section 564(b)(1) of the Federal Food, Drug and Cosmetic Act, 21 U.S.C. 360bbb-3(b)(1), unless the authorization is terminated or revoked sooner. Fact Sheet for Healthcare Providers: https://www.[employer]iva/Documents/Xpert%20Xpress%20SARS%20CoV -2/Fact%20Sheets/302-3802%18KKDY-AKF-2%20HEALTHCARE%20PROVIDERS%20FACT%20SHEET.p df Fact Sheet for Healthcare Patients: https://www.[employer]/Documents/Xpert%20Xpress%20SARS%20CoV-2/Fact%20Sheets/30 2-3801%87YRJW-XXA-3%20PATIENT%20FACT%20SHEET.pdfSouthern Inyo HospitalPOCT- GLUCOSE [id number] 22:49:00 Test Item Value Reference Range Interpretation Comments POC-GLUCOSE METER 289 mg/dL 70-110 H : TESTED A T [facility] 6720 (BEAKER) (test code = JOSE Dante [facility], 1538) [address]: Swing Ride Operator/Techni albina ID = [id number] for NO ZIGGY KELLER Strep pneumoniae [id number] 21:55:00 Test Item Value Reference Range Interpretation Comments Strep pneumoniae Presumptive negative Presumptive Antigen (test code = [place] [address]-0) pneumonia - see pneumococcal comment pneumonia - see comment, Presumptive negative for pneumococcal meningitis - see comment REID (test code = REID) Presumptive negative for pneumococcal pneumonia, suggesting no current or recent pneumococcal infection. Infection due to S. pneumoniae cannot be ruled out since the antigen present in the sample may be below the detection limit of the test. Lab Interpretation Normal (test code = 85972-0) [facility] [id number] 21:55:00 Test Item Value Reference Range Interpretation Comments Strep pneumoniae Presumptive negative Presumptive Antigen (test code = [place] [address]-8) pneumonia - see pneumococcal comment pneumonia - see comment, Presumptive negative for pneumococcal meningitis - see comment REID (test code = REID) Presumptive negative for pneumococcal pneumonia, suggesting no current or recent pneumococcal infection. Infection due to S. pneumoniae cannot be ruled out since the antigen present in the sample may be below the detection limit of the test. Lab Interpretation Normal (test code = 60888-8) [facility] CenterTREP PNEUMONIAE [id number] 21:55:00 Test Item Value Reference Range Interpretation Comments STREP PNEUMONIAE Presumptive negative Presumptive negative ANTIGEN (BEAKER) for pneumococcal for pneumococcal (test code = 1615) pneumonia - see pneumonia - see comment commen Presumptive negative for pneumococcal pneumonia, suggesting no current or recent pneumococcal infection. Infection due to S. pneumoniae cannot be ruled out since the antigen present in the sample may be below the detection limit of the test. Legionella antigen, [id number] 21:54:00 Test Item Value Reference Range Interpretation Comments Legionella Urine Negative - see Negative for L. Antigen (test code comment pneumophi la = 53544-7) serogroup 1 ant igen, suggesting no r ecent or current infe ction with this serog roup. Legionellosis c annot be ruled out si nce other serogroup s and species may cau se disease. [facility] HospitalLegionella antigen, [id number] 21:54:00 Test Item Value Reference Range Interpretation Comments Legionella Urine Negative - see Negative for L. Antigen (test code comment pneumophi la = 79342-7) serogroup 1 ant igen, suggesting no r ecent or current infe ction with this serog roup. Legionellosis c annot be ruled out si nce other serogroup s and species may cau se disease. [facility] HospitalLEGIONELLA ANTIGEN, [id number] 21:54:00 Test Item Value Reference Range Interpretation Comments L. PNEUMOPHILA Negative - see Negative fo r L. SEROGP 1 UR AG comment pneumophila (BEAKER) (test code serogrou p 1 antigen, = 1156) suggesting no r ecent or current infe ction with this serog roup. Legionellosis c annot be ruled out si nce other serogroup s and species may cau se disease. RAD, CHEST, 1 VIEW, NON [id number] 19:51:00Admission hypoxiaReason for exam:->covidShould this be performed at the bedside?->Yes [facility] : 1950 Sex: MFINAL REPORT TECHNIQUE: Frontal view of the chest. INDICATION: covid. COMPARISON: None. FINDINGS: LINES/TUBES: None. LUNGS: There is patchy opacity in the left lung, especially in the left apex. The right lung has a few areas of interstitial and patchy opacity but is more clear. PLEURA: No pneumothorax or significant pleural effusion. HEART AND MEDIASTINUM: The cardiac silhouette is normalin size. SOFT TISSUES AND BONES: Unremarkable. IMPRESSION: The lung abnormalities are slightly asymmetric and more prominent on the left. These findings are consistent with Covid 19 pneumonia given theclinical history. However, given the asymmetry, a superimposed infection or pulmonary embolism couldbe consider. Signed: Renita Leyva MDReport Verified Date/Time: 04/02/2021 19:51:46 Reading Location: [place] [id number] CT Body Reading Room Lactic acid, venous 2021-04-02 19:48:00 Test Item Value Reference Range Interpretation Comments Lactate, Venous (test code 1.06 mmol/L 0.50-2.20 = 2872) REID (test code = REID) Swing Ride Operator ID - PIAYA L Lab Interpretation (test Normal code = 68448-2) [facility] HospitalLactic acid, [id number] 19:48:00 Test Item Value Reference Range Interpretation Comments Lactate, Venous (test code 1.06 mmol/L 0.50-2.20 = 2872) REID (test code = REID) Swing Ride Operator ID - PIWILLIAM L Lab Interpretation (test Normal code = 53348-4) [facility] HospitalLACTIC ACID, [id number] 19:48:00 Test Item Value Reference Range Interpretation Comments LACTATE BLOOD VENOUS (2) (BEAKER) 1.06 mmol/L 0.50-2.20 (test code = 2872) Swing Ride Operator ID - PETEAYA LThromboelastograph (TEG)2021-04-02 19:32:00 Test Item Value Reference Range Interpretation Comments TEG Activated Clotting 7.9 See_Comment H [Aut omated message] Time (test code = The system which 98883-3) generated this result transmitted ref erence range: 4.0 - 7. 0 minutes. The reference range was not used to int erpret this result as normal/abnormal . TEG Fibrinogen Activity 65.4 See_Comment [Au tomated message] (test code = 47542-1) The sy stem which generated this result transmitted ref erence range: 61.0 - 7 3.0 degrees. The reference range was not used to int erpret this result as normal/abnormal . TEG Platelet Aggregation 70.3 See_Comment H [A utomated message] (test code = 90241-5) The sy stem which generated this result transmitted ref erence range: 55.0 - 6 5.0 MM. The referen ce range was not u sed to interpret this result as normal/abnor mal. TEG Fibrinolysis (test 0.1 % 0.0-5.0 code = 93385-7) TEG-H Activated Clotting 8.5 See_Comment H [A utomated message] Time (test code = 1411) The system which generated this result transmitted ref erence range: 4.0 - 7. 0 minutes. The reference range was not used to int erpret this result as normal/abnormal . TEG-H Fibrinogen 69.4 See_Comment [Automated message] Activity (test code = The sy stem which 1412) generated this result transmitted ref erence range: 61.0 - 7 3.0 degrees. The reference range was not used to int erpret this result as normal/abnormal . TEG-H Platelet 66.5 See_Comment H [Automated m essage] Aggregation (test code = The system which 1413) generated this result transmitted ref erence range: 55.0 - 6 5.0 MM. The referen ce range was not u sed to interpret this result as normal/abnor mal. TEG-H Fibrinolysis (test 2.4 % 0.0-5.0 code = 1414) Lab Interpretation (test Abnormal code = 88105-7) [facility]Thromboelastograph (TEG)2021-04-02 19:32:00 Test Item Value Reference Range Interpretation Comments TEG Activated Clotting 7.9 See_Comment H [Aut omated message] Time (test code = The system which 18417-9) generated this result transmitted ref erence range: 4.0 - 7. 0 minutes. The reference range was not used to int erpret this result as normal/abnormal . TEG Fibrinogen Activity 65.4 See_Comment [Au tomated message] (test code = 19514-7) The sy stem which generated this result transmitted ref erence range: 61.0 - 7 3.0 degrees. The reference range was not used to int erpret this result as normal/abnormal . TEG Platelet Aggregation 70.3 See_Comment H [A utomated message] (test code = 61991-2) The sy stem which generated this result transmitted ref erence range: 55.0 - 6 5.0 MM. The referen ce range was not u sed to interpret this result as normal/abnor mal. TEG Fibrinolysis (test 0.1 % 0.0-5.0 code = 33223-0) TEG-H Activated Clotting 8.5 See_Comment H [A utomated message] Time (test code = 1411) The system which generated this result transmitted ref erence range: 4.0 - 7. 0 minutes. The reference range was not used to int erpret this result as normal/abnormal . TEG-H Fibrinogen 69.4 See_Comment [Automated message] Activity (test code = The sy stem which 1412) generated this result transmitted ref erence range: 61.0 - 7 3.0 degrees. The reference range was not used to int erpret this result as normal/abnormal . TEG-H Platelet 66.5 See_Comment H [Automated m essage] Aggregation (test code = The system which 1413) generated this result transmitted ref erence range: 55.0 - 6 5.0 MM. The referen ce range was not u sed to interpret this result as normal/abnor mal. TEG-H Fibrinolysis (test 2.4 % 0.0-5.0 code = 1414) Lab Interpretation (test Abnormal code = 06652-0) [facility]THROMBOELASTOGRAPH (TEG)2021-04-02 19:32:00 Test Item Value Reference Range Interpretation Comments TEG ACTIVATED CLOTTING TIME 7.9 minutes 4.0-7.0 H (BEAKER) (test code = 1407) TEG FIBRINOGEN ACTIVITY (BEAKER) 65.4 degrees 61.0-73.0 (test code = 1408) TEG PLT. AGGREGATION (BEAKER) 70.3 MM 55.0-65.0 H (test code = 1409) TEG FIBRINOLYSIS (BEAKER) (test 0.1 % 0.0-5.0 code = 1410) TGH ACTIVATED CLOTTING TIME 8.5 minutes 4.0-7.0 H (BEAKER) (test code = 1411) [facility] FIBRINOGEN ACTIVITY (BEAKER) 69.4 degrees 61.0-73.0 (test code = 1412) TGH PLT. AGGREGATION (BEAKER) 66.5 MM 55.0-65.0 H (test code = 1413) [facility] FIBRINOLYSIS (BEAKER) (test 2.4 % 0.0-5.0 code = 1414) [id number] 19:18:00 Test Item Value Reference Range Interpretation Comments Ferritin (test code = 403.90 ng/mL 5.00-275.00 H 2276-4) REID (test code = REID) Swing Ride Operator ID - PIAYA L Lab Interpretation (test Abnormal code = 45478-4) [facility]Ferritin[facility]21-[facility] 19:18:00 Test Item Value Reference Range Interpretation Comments Ferritin (test code = 403.90 ng/mL 5.00-275.00 H 2276-4) REID (test code = REID) Swing Ride Operator ID - PIAYA L Lab Interpretation (test Abnormal code = 79364-4) [facility]FERRITIN2021-[facility]-29 19:18:00 Test Item Value Reference Range Interpretation Comments FERRITIN (BEAKER) (test code = 403.90 ng/mL 5.00-275.00 H 361) Swing Ride Operator ID - CARA LUrinalysis w/Microscopic + Reflex to [id number] 19:07:00 Test Item Value Reference Range Interpretation Comments Color, UA (test code Yellow = 5778-6) Clarity, UA (test Hazy code = 5767-9) Specific [place], UA 1.018 1.001-1.035 (test code = 5811-5) pH, UA (test code = 5.5 5.0-8.0 5803-2) Protein, UA (test 20 mg/dL Negative A code = 55063-4) Glucose, UA (test Negative Negative code = 365) Ketones, UA (test Negative Negative code = 2514-8) Bilirubin, UA (test Negative Negative code = 34695-6) Blood, UA (test code Trace Negative A = 41743-2) Nitrite, UA (test Negative Negative code = 5802-4) Leukocytes, UA (test Moderate Negative A code = 5799-2) Urobilinogen, UA 0.2 mg/dL 0.2-1.0 (test code = 50739-3) RBC, UA (test code = 11 See_Comment [Autom ated 46295-8) message] The system which generated this result transmit key reference range : /HPF. The reference range was not used to interpret this result as normal/abnormal . WBC, UA (test code = 14 See_Comment [Autom ated 5821-4) message] The system which generated this result transmit key reference range : /HPF. The reference range was not used to interpret this result as normal/abnormal . Bacteria, UA (test None Seen code = 37922-3) Mucus (test code = Rare 8247-9) Hyaline Casts, UA 25 See_Comment [Automate d (test code = 43897-0) messag e] The system which generated this result transmit key reference range : /LPF. The reference range was not used to interpret this result as normal/abnormal . Crystals, Urine (test None Seen code = 21412-7) Specimen Source (test code = 2795) REID (test code = REID) Swing Ride Operator ID - [auto]Swing Ride Operator ID - tech Lab Interpretation Abnormal (test code = 73387-4) [facility]inalysis w/Microscopic + Reflex to Culture 2021-04-02 19:07:00 Test Item Value Reference Range Interpretation Comments Color, UA (test code Yellow = 5778-6) Clarity, UA (test Hazy code = 5767-9) Specific [place], UA 1.018 1.001-1.035 (test code = 5811-5) pH, UA (test code = 5.5 5.0-8.0 5803-2) Protein, UA (test 20 mg/dL Negative A code = 63849-4) Glucose, UA (test Negative Negative code = 365) Ketones, UA (test Negative Negative code = 2514-8) Bilirubin, UA (test Negative Negative code = 23970-8) Blood, UA (test code Trace Negative A = 24305-6) Nitrite, UA (test Negative Negative code = 5802-4) Leukocytes, UA (test Moderate Negative A code = 5799-2) Urobilinogen, UA 0.2 mg/dL 0.2-1.0 (test code = 58570-2) RBC, UA (test code = 11 See_Comment [Autom ated 46340-5) message] The system which generated this result transmit key reference range : /HPF. The reference range was not used to interpret this result as normal/abnormal . WBC, UA (test code = 14 See_Comment [Autom ated 5821-4) message] The system which generated this result transmit key reference range : /HPF. The reference range was not used to interpret this result as normal/abnormal . Bacteria, UA (test None Seen code = 69422-8) Mucus (test code = Rare 8247-9) Hyaline Casts, UA 25 See_Comment [Automate d (test code = 68834-7) messag e] The system which generated this result transmit key reference range : /LPF. The reference range was not used to interpret this result as normal/abnormal . Crystals, Urine (test None Seen code = 04837-4) Specimen Source (test code = 2795) REID (test code = REID) Swing Ride Operator ID - [auto]Swing Ride Operator ID - tech Lab Interpretation Abnormal (test code = 60237-8) [facility]/ REFLEX URINE [id number] 19:07:00 Test Item Value Reference Range Interpretation Comments COLOR (BEAKER) (test code = 470) Yellow CLARITY (BEAKER) (test code = 469) Hazy SPECIFIC GRAVITY UA (BEAKER) (test 1.018 1.001-1.035 code = 468) PH UA (BEAKER) (test code = 467) 5.5 5.0-8.0 PROTEIN UA (BEAKER) (test code = 20 mg/dL Negative A 464) GLUCOSE UA (BEAKER) (test code = Negative Negative 365) KETONES UA (BEAKER) (test code = Negative Negative 371) BILIRUBIN UA (BEAKER) (test code = Negative Negative 462) BLOOD UA (BEAKER) (test code = 461) Trace Negative A NITRITE UA (BEAKER) (test code = Negative Negative 465) LEUKOCYTE ESTERASE UA (BEAKER) Moderate Negative A (test code = 466) UROBILINOGEN UA (BEAKER) (test code 0.2 mg/dL 0.2-1.0 = 463) RBC UA (BEAKER) (test code = 519) 11 /HPF WBC UA (BEAKER) (test code = 520) 14 /HPF BACTERIA (BEAKER) (test code = 517) None Seen MUCUS (BEAKER) (test code = 1574) Rare HYALINE CASTS (BEAKER) (test code = 25 /LPF 514) CRYSTALS, URINE (BEAKER) (test code None Seen = 1521) SOURCE(BEAKER) (test code = 2795) Swing Ride Operator ID - [auto]Swing Ride Operator ID - techHIGH SENSITIVITY TROPONIN [id number] 19:04:00 Test Item Value Reference Range Interpretation Comments HIGH SENSITIVITY 128 pg/ml See_Comment H [Automated message] TROPONIN I (test code The sy stem which = 9242134) generated this result transmitted ref erence range: <=35. Th e reference range was not used to int erpret this result as normal/abnormal . Swing Ride Operator ID - PIAYA LThe JUMPBASTING FACING BASTER STAT High Sensitivity Troponin-I results should be used in conjunction with other diagnostic information such as ECG, clinical observations and information, and patient symptoms to aid in the diagnosis of [place].[id number] 18:56:00 Test Item Value Reference Range Interpretation Comments MAGNESIUM (BEAKER) (test code = 1.6 mg/dL 1.6-2.6 627) Swing Ride Operator ID - PIAYA LC-REACTIVE [id number] 18:56:00 Test Item Value Reference Range Interpretation Comments C-REACTIVE PROTEIN (BEAKER) (test 5.18 mg/dL 0.00-0.50 H code = 676) Swing Ride Operator ID - PIAYA LPOCT-GLUCOSE [id number] 18:46:00 Test Item Value Reference Range Interpretation Comments POC-GLUCOSE METER 221 mg/dL 70-110 H : TESTED A T [facility] 6720 (BEAKER) ([facility], = 1538) 200[address]: Swing Ride Operator/Techni albina ID = [id number] for FLETCHER GATES BLOOD GAS, [id number] 18:42:00 Test Item Value Reference Range Interpretation Comments PH VENOUS (BEAKER) (test code = 7.32 7.32-7.42 701) PCO2 VENOUS (BEAKER) (test code = 58 mm Hg 41-51 H 755) PO2 VENOUS (BEAKER) (test code = 147 mm Hg 25-40 H 702) O2 SATURATION VENOUS (BEAKER) 98.7 % 40.0-70.0 H (test code = 703) HCO3 VENOUS (BEAKER) (test code = 30 mmol/L 21-29 H 705) BASE EXCESS VENOUS (BEAKER) (test 2.2 mmol/L -2.0-3.0 code = 704) PATIENT TEMPERATURE (BEAKER) (test 37.0 code = 1818) FIO2 (BEAKER) (test code = 1819) 100.0 [id number] 18:41:00 Test Item Value Reference Range Interpretation Comments PTT (test code = 21319-8) 34.8 See_Comment [ Automated message] The system Tastemaker generated this result transmitted ref erence range: 22.5 - 3 6.0 seconds. The re ference range was not u sed to interpret this result as normal/abnor mal. Lab Interpretation (test Normal code = 86540-1) [facility] [id number] 18:41:00 Test Item Value Reference Range Interpretation Comments O2 Saturation (Measured) (test code = 97.4 % 99057-9) [facility] 18:41:00 Test Item Value Reference Range Interpretation Comments PTT (test code = 53288-3) 34.8 See_Comment [ Automated message] The system Tastemaker generated this result transmitted ref erence range: 22.5 - 3 6.0 seconds. The re ference range was not u sed to interpret this result as normal/abnor mal. Lab Interpretation (test Normal code = 63806-5) [facility], [id number] 18:41:00 Test Item Value Reference Range Interpretation Comments O2 Saturation (Measured) (test code = 97.4 % 38162-9) [facility], [id number] 18:41:00 Test Item Value Reference Range Interpretation Comments O2 SATURATION (MEASURED) (BEAKER) 97.4 % (test code = 1455) [id number] 18:41:00 Test Item Value Reference Range Interpretation Comments PARTIAL THROMBOPLASTIN TIME 34.8 seconds 22.5-36.0 (BEAKER) (test code = 760) [id number] 18:40:00 Test Item Value Reference Range Interpretation Comments Fibrinogen (test code = 3255-7) 456 mg/dl 225-434 H Lab Interpretation (test code = Abnormal 91795-3) [facility]/[id number] 18:40:00 Test Item Value Reference Interpretation Comments Range Protime (test code = 15.3 See_Comment H [Autom ated 5902-2) message] The system which generated this result transmitted reference range : 11.9 - 14.2 seconds. The reference range was not used to interpret this result as normal/abnormal . INR (test code = 1.23 See_Comment [Automated 6301-6) message] The system which generated this result transmitted reference range : <=5.90. The reference range was not used to interpret this result as normal/abnormal . REID (test code = RECOMMENDED REID) COUMADIN/WARFARIN INR THERAPY RANGESSTANDARD DOSE: 2.0 - 3.0 Includes: PROPHYLAXIS for venous thrombosis, systemic embolization; TREATMENT for venous thrombosis and/or pulmonary embolus.HIGH RISK: Target INR is 2.5-3.5 for patients with mechanical heart valves. Lab Interpretation Abnormal (test code = 66284-9) [facility] 18:40:00 Test Item Value Reference Range Interpretation Comments Fibrinogen (test code = 3255-7) 456 mg/dl 225-434 H Lab Interpretation (test code = Abnormal 52311-4) [facility]/[id number] 18:40:00 Test Item Value Reference Interpretation Comments Range Protime (test code = 15.3 See_Comment H [Autom ated 5902-2) message] The system which generated this result transmitted reference range : 11.9 - 14.2 seconds. The reference range was not used to interpret this result as normal/abnormal . INR (test code = 1.23 See_Comment [Automated 6301-6) message] The system which generated this result transmitted reference range : <=5.90. The reference range was not used to interpret this result as normal/abnormal . REID (test code = RECOMMENDED REID) COUMADIN/WARFARIN INR THERAPY RANGESSTANDARD DOSE: 2.0 - 3.0 Includes: PROPHYLAXIS for venous thrombosis, systemic embolization; TREATMENT for venous thrombosis and/or pulmonary embolus.HIGH RISK: Target INR is 2.5-3.5 for patients with mechanical heart valves. Lab Interpretation Abnormal (test code = 76602-0) [facility]/[id number] 18:40:00 Test Item Value Reference Range Interpretation Comments PROTIME (BEAKER) 15.3 seconds 11.9-14.2 H (test code = 759) INR (BEAKER) (test 1.23 See_Comment [Automat ed message] code = 370) The system Tastemaker generated this result transmitted ref erence range: <=5.90. The reference range was not used to int erpret this result as normal/abnormal . RECOMMENDED COUMADIN/WARFARIN INR THERAPY RANGESSTANDARD DOSE: 2.0 - 3.0 Includes: PROPHYLAXIS for venous thrombosis, systemic embolization; TREATMENT for venous thrombosis and/or pulmonary embolus.HIGH RISK: Target INR is 2.5-3.5 for patients with mechanical heart valves.[id number] 18:40:00 Test Item Value Reference Range Interpretation Comments FIBRINOGEN LEVEL (BEAKER) (test 456 mg/dl 225-434 H code = 658)
[2023-05-28] MEDS ORDERED: CEFTRIAXONE 1000 MG/VIAL ONE (15:02)
[2023-05-28] MEDS ORDERED: AZITHROMYCIN 500 MG INJ IVPB ONE (15:02)
[2023-05-28] MEDS ORDERED: NA CHLORIDE 0.9% 250 ML ONE (15:02)
[2023-05-28 15:12] LABS: Hematocrit 38.6 % (39.6-49.0); Lymphocytes % 29.7 % (15.3-44.8); MCV 83.2 fL (80-100); Platelets 190 thou/uL (152-406); RBC Red Blood Cell Count 4.64 M/uL (4.33-5.43)
[2023-05-28 15:19] LABS: Protime INR 1.09
[2023-05-28 15:38] LABS: Bilirubin Total 0.5 mg/dL (0.2-1.0); Potassium 3.6 mEq/L (3.5-5.1); Protein, Total 8.3 g/dL (6.4-8.2)
[2023-05-28] MEDS ORDERED: NA CHLORIDE 0.9% 1,000 ML ONE (16:18)
--- NOTE | 2023-05-28 16:30 | EDPHYS ---
Physician Documentation [facility] Name: Sumanth Rodriguez Age: 72 yrs Sex: Male : 1950 Arrival Date: 05/28/2023 Time: 14:34 Bed 4 Private MD: ED Physician Sharath Juarez HPI: 05/28 14:44 This 72 yrs old Black Male presents to ER via EMS with complaints of Shortness Of ec2 Breath. 14:44 Patient arrives today for reported shortness of breath. Patient reportedly had ec2 oxygenation in the upper 80s and EMS was subsequently called. Patient was recently diagnosed with pneumonia, is on baseline oxygen approximately 3 L, EMS reports that they had noted that the patient was not appropriately hooked up to oxygen and once corrected his hypoxia had since resolved. Patient with history of CHF as well. Patient reports that his breathing is unlabored and has no specific concerns.. Historical: - Allergies: 14:39 No Known Allergies; ld1 - Home Meds: 14:39 Eliquis 5 mg Oral tab 1 tab 2 times per day [Active]; ld1 - PMHx: 14:39 Atrial Fib; CHF; constipation; CVA; Diabetes - NIDDM; DYSPHAGIA; GERD; hemiplegia left ld1 side; Hyperlipidemia; Hypertension; muscle spasms; - Immunization history:: Adult Immunizations up to date. - Social history:: Smoking status: Patient denies any tobacco usage or history of. Patient/guardian denies using alcohol. ROS: 14:44 Constitutional: as per hpi ec2 Exam: 14:44 Constitutional: GEN: NAD Head: atraumatic Eyes: EOMI Ears: External ears are ec2 normal. CV: regular rate, no lower extremity edema LUNGS: Mild tachypnea noted ABD: non-distended SKIN: no evidence of rashes MSK: no evidence of trauma NEURO: moves all extremities equally Vital Signs: 14:37 BP 134 / 73; Pulse 118; Resp 22; Temp 98.4(O); Pulse Ox 98% on 3 lpm NC; Weight 132.45 ld1 kg; Height 5 ft. 11 in. ; Pain 0/10; 15:12 BP 105 / 81; Pulse 119; Resp 20; Pulse Ox 98% on 3 lpm NC; ld1 15:26 BP 111 / 79; Pulse 118; Resp 22; Pulse Ox 97% on 3 lpm NC; ld1 16:20 BP 103 / 64; Pulse 118; Resp 20; Pulse Ox 94% on 3 lpm NC; ld1 17:40 BP 122 / 70; Pulse 114; Resp 22; Pulse Ox 95% on 3 lpm NC; ld1 18:26 BP 124 / 82; Pulse 67; Resp 18; Pulse Ox 100% on 3 lpm NC; ld1 19:10 BP 119 / 44; Pulse 77; Pulse Ox 96% on 3 lpm NC; nw1 19:13 BP 110 / 79; Pulse 75; Resp 21; Temp 97.6; Pulse Ox 97% on 3 lpm NC; nw1 14:37 Body Mass Index 40.73 (132.45 kg, 180.34 cm) ld1 14:37 Pain Scale: Adult ld1 [place] Coma Score: 19:10 Eye Response: spontaneous(4). Motor Response: obeys commands(6). Verbal Response: nw1 confused(4). Total: 14. MDM: 14:40 Patient medically screened. ec2 14:44 ED course: Patient arrives today due to concern for possible shortness of breath and ec2 hypoxia that has since resolved after correct oxygen placement. Examination remarkable for individual with mild tachypnea noted. 15:26 ED course: EKG independently reviewed and interpreted by me, shows sinus tachycardia, ec2 rate of 125, no acute ST segment elevations, nonconcerning intervals.. 15:52 ED course: CBC is remarkable for reassuring blood counts, metabolic profile with ec2 appropriate electrolytes and minimally elevated lactic acid at 2.7. . 16:20 ED course: Chest x-ray independently reviewed and interpreted by me, shows left-sided ec2 pneumonia. Presentation is somewhat sepsis due to pneumonia. We will admit the patient for continued medication management and pneumonia management. I discussed case with hospitalist, pending admission.. 16:30 Data reviewed: vital signs. ec2 05/28 14:43 Order name: Blood Culture Adult (2) ec2 05/28 14:43 Order name: CBC with Diff; Complete Time: 15:51 ec2 05/28 14:43 Order name: CMP; Complete Time: 15:51 ec2 05/28 14:43 Order name: Lactate w/ 2H reflex if indic.; Complete Time: 15:51 ec2 05/28 14:43 Order name: Protime (+inr); Complete Time: 15:51 ec2 05/28 14:43 Order name: Ptt, Activated; Complete Time: 15:51 ec2 05/28 14:43 Order name: BNP; Complete Time: 15:51 ec2 05/28 16:49 Order name: ABG Arterial Blood Gas EDMS 05/28 18:43 Order name: Thyroid Stimulating Hormone EDNE 05/28 20:11 Order name: Lactate Sepsis 2 HR Follow-up EDMS 05/28 14:43 Order name: Chest Single View XRAY; Complete Time: 16:57 ec2 05/28 14:43 Order name: EKG; Complete Time: 14:43 ec2 05/28 14:43 Order name: Accucheck; Complete Time: 14:46 ec2 05/28 14:43 Order name: Cardiac monitoring; Complete Time: 14:46 ec2 05/28 14:43 Order name: EKG - Nurse/Tech; Complete Time: 15:22 ec2 05/28 14:43 Order name: IV Saline Lock - Large Bore; Complete Time: 15:11 ec2 05/28 14:43 Order name: Labs collected and sent; Complete Time: 15:11 ec2 05/28 14:43 Order name: O2 Per Protocol; Complete Time: 14:46 ec2 05/28 14:43 Order name: O2 Sat Monitoring; Complete Time: 14:46 ec2 05/28 14:43 Order name: Vital Signs; Complete Time: 14:46 ec2 Administered Medications: 20:10 Discontinued: rocephin1 grams IV at calculated rate once; Given slow IV push per nw1 pharmacy instructions 20:10 Discontinued: [id number] mg IVPB once over 1 hrs; (mix in 250 mL NS) nw1 20:10 Discontinued: ns 0.9% 1000 ml IV at 1 bolus Per protocol; 1000 mL bolus nw1 15:09 Drug: Rocephin IV 1 grams IV at calculated rate once; Given slow IV push per pharmacy ld1 instructions Route: IV; Rate: calculated rate; Site: right antecubital; 15:11 Drug: AZITHromycin IVPB 500 mg IVPB once over 1 hrs; (mix in 250 mL NS) Route: IVPB; ld1 Infused Over: 1 hrs; Site: right antecubital; 20:10 Follow up: Response: No adverse reaction; IV Status: Completed infusion nw1 20:11 Follow up: Response: No adverse reaction; IV Status: Completed infusion nw1 16:09 Drug: NS 0.9% IV 1000 ml IV at 1 bolus Per protocol; 1000 mL bolus Route: IV; Rate: 1 ld1 bolus; Site: right antecubital; 20:10 Follow up: Response: No adverse reaction; IV Status: Completed infusion nw1 Disposition: 16:28 Critical Care:. ec2 Disposition Summary: 05/28/23 16:30 Hospitalization Ordered Notes: Hospitalization Status: Inpatient Admission ec2 Provider: Dalton Sandoval ec2 Location: Telemetry/MedSur (Inpatient) ec2 Condition: Stable ec2 Problem: an acute exacerbation ec2 Symptoms: are unchanged ec2 Bed/Room Type: Standard ec2 Room Assignment: 217(05/28/23 19:49) mw Diagnosis - Sepsis, unspecified organism ec2 - Pneumonia ec2 Forms: - Medication Reconciliation Form ec2 - SBAR form ec2 - Leadership Thank You Letter ec2 Critical care time excluding procedures: 16:28 Critical care time: Bedside Care: 30 minutes. Total time: 30 minutes ec2 Signatures: Dispatcher [employer] Maggy Driver RN RN mw Vianney Parson RN RN ld1 Sharath Juarez MD MD ec2 Prachi Mathew RN nw1 Corrections: (The following items were deleted from the chart) 14:45 14:44 Constitutional: No acute distress ec2 ec2 19:49 16:30 ec2 mw
--- NOTE | 2023-05-28 16:30 | ER ---
Nurse's Notes [facility] Name: Sumanth Rodriguez Age: 72 yrs Sex: Male : 1950 Arrival Date: 05/28/2023 Time: 14:34 Bed 4 Private MD: Diagnosis: Sepsis, unspecified organism;Pneumonia Presentation: 05/28 14:37 Chief complaint: EMS states: toned out to [facility] for low SpO2. Upon ld1 arrival EMS reports pt SpO2 was 82% on 2L NC. Upon arrival to ER - pt SpO2 98% 3L NC. Recent diagnosis of pneumonia. Coronavirus screen: At this time, the client does not indicate any symptoms associated with coronavirus-19. Ebola Screen: No symptoms or risks identified at this time. Initial Sepsis Screen: Does the patient meet any 2 criteria? No. Patient's initial sepsis screen is negative. Does the patient have a suspected source of infection? No. Patient's initial sepsis screen is negative. Risk Assessment: Do you want to hurt yourself or someone else? Patient reports no desire to harm self or others. Onset of symptoms was May 28, 2023. 14:37 Method Of Arrival: EMS: [facility] ld1 14:37 Acuity: TORY 3 ld1 Triage Assessment: 14:39 General: Appears in no apparent distress. comfortable, Behavior is calm, cooperative, ld1 appropriate for age. Pain: Denies pain. EENT: No signs and/or symptoms were reported regarding the EENT system. Neuro: Level of Consciousness is awake, alert, obeys commands, Oriented to person, place, time, situation, Appropriate for age. Cardiovascular: Capillary refill < 3 seconds Patient's skin is warm and dry. Rhythm is sinus tachycardia. Respiratory: Reports shortness of breath at rest on exertion Airway is patent Respiratory effort is even, unlabored, Onset: The symptoms/episode began/occurred suddenly, the patient has mild shortness of breath. GI: Abdomen is round non-distended. : No signs and/or symptoms were reported regarding the genitourinary system. Derm: No signs and/or symptoms reported regarding the dermatologic system. Musculoskeletal: No signs and/or symptoms reported regarding the musculoskeletal system. Historical: - Allergies: 14:39 No Known Allergies; ld1 - Home Meds: 14:39 Eliquis 5 mg Oral tab 1 tab 2 times per day [Active]; ld1 - PMHx: 14:39 Atrial Fib; CHF; constipation; CVA; Diabetes - NIDDM; DYSPHAGIA; GERD; hemiplegia left ld1 side; Hyperlipidemia; Hypertension; muscle spasms; - Immunization history:: Adult Immunizations up to date. - Social history:: Smoking status: Patient denies any tobacco usage or history of. Patient/guardian denies using alcohol. Screenin:41 [facility] ED Fall Risk Assessment (Adult) History of falling in the last 3 months, ld1 including since admission No falls in past 3 months (0 pts). Abuse screen: Denies threats or abuse. Denies injuries from another. Nutritional screening: No deficits noted. Tuberculosis screening: No symptoms or risk factors identified. Assessment: 14:41 Reassessment: See triage assessment. Cardiovascular: Capillary refill < 3 seconds ld1 Patient's skin is warm and dry. Rhythm is sinus tachycardia. Respiratory: Airway is patent Respiratory effort is even, labored, Breath sounds are clear bilaterally. 15:26 Reassessment: Patient appears in no apparent distress at this time. No changes from ld1 previously documented assessment. Patient and/or family updated on plan of care and expected duration. Pain level reassessed. 16:45 Reassessment: Patient appears in no apparent distress at this time. No changes from ld1 previously documented assessment. Patient and/or family updated on plan of care and expected duration. Pain level reassessed. 18:26 Reassessment: Patient appears in no apparent distress at this time. No changes from ld1 previously documented assessment. Patient and/or family updated on plan of care and expected duration. Pain level reassessed. 19:10 General: Appears in no apparent distress. comfortable, pt repositioned. . nw1 19:10 Cardiovascular: Heart tones present Capillary refill < 3 seconds Patient's skin is warm nw1 and dry. Rhythm is sinus rhythm. Respiratory: Airway is patent Respiratory effort is even, labored. GI: Abdomen is round obese, Bowel sounds present X 4 quads. Vital Signs: 14:37 BP 134 / 73; Pulse 118; Resp 22; Temp 98.4(O); Pulse Ox 98% on 3 lpm NC; Weight 132.45 ld1 kg; Height 5 ft. 11 in. ; Pain 0/10; 15:12 BP 105 / 81; Pulse 119; Resp 20; Pulse Ox 98% on 3 lpm NC; ld1 15:26 BP 111 / 79; Pulse 118; Resp 22; Pulse Ox 97% on 3 lpm NC; ld1 16:20 BP 103 / 64; Pulse 118; Resp 20; Pulse Ox 94% on 3 lpm NC; ld1 17:40 BP 122 / 70; Pulse 114; Resp 22; Pulse Ox 95% on 3 lpm NC; ld1 18:26 BP 124 / 82; Pulse 67; Resp 18; Pulse Ox 100% on 3 lpm NC; ld1 19:10 BP 119 / 44; Pulse 77; Pulse Ox 96% on 3 lpm NC; nw1 19:13 BP 110 / 79; Pulse 75; Resp 21; Temp 97.6; Pulse Ox 97% on 3 lpm NC; nw1 14:37 Body Mass Index 40.73 (132.45 kg, 180.34 cm) ld1 14:37 Pain Scale: Adult ld1 [place] Coma Score: 19:10 Eye Response: spontaneous(4). Motor Response: obeys commands(6). Verbal Response: nw1 confused(4). Total: 14. ED Course: 14:37 Patient arrived in ED. ld1 14:39 Triage completed. ld1 14:39 Arm band placed on right wrist. ld1 14:40 Sharath Juarez MD is Attending Physician. ec2 14:41 Patient has correct armband on for positive identification. Placed in gown. Bed in low ld1 position. Call light in reach. Side rails up X2. first calender worker on. Pulse ox on. NIBP on. Door closed. Noise minimized. Warm blanket given. 14:41 No provider procedures requiring assistance completed. ld1 14:50 Vianney Parson, WARREN is Primary Nurse. ld1 15:11 Blood Culture Adult (2) Sent. ld1 15:11 Lactate w/ 2H reflex if indic. Sent. ld1 15:11 Inserted saline lock: 20 gauge in right antecubital area, using aseptic technique. ld1 Blood collected. 15:48 Chest Single View XRAY In Process Unspecified. EDMS 16:30 Dalton Sandoval MD is Hospitalizing Provider. ec2 20:11 Primary Nurse role handed off by Vianney Parson, WARREN as6 Administered Medications: 20:10 Discontinued: rocephin1 grams IV at calculated rate once; Given slow IV push per nw1 pharmacy instructions 20:10 Discontinued: [id number] mg IVPB once over 1 hrs; (mix in 250 mL NS) nw1 20:10 Discontinued: ns 0.9% 1000 ml IV at 1 bolus Per protocol; 1000 mL bolus nw1 15:09 Drug: Rocephin IV 1 grams IV at calculated rate once; Given slow IV push per pharmacy ld1 instructions Route: IV; Rate: calculated rate; Site: right antecubital; 15:11 Drug: AZITHromycin IVPB 500 mg IVPB once over 1 hrs; (mix in 250 mL NS) Route: IVPB; ld1 Infused Over: 1 hrs; Site: right antecubital; 20:10 Follow up: Response: No adverse reaction; IV Status: Completed infusion nw1 20:11 Follow up: Response: No adverse reaction; IV Status: Completed infusion nw1 16:09 Drug: NS 0.9% IV 1000 ml IV at 1 bolus Per protocol; 1000 mL bolus Route: IV; Rate: 1 ld1 bolus; Site: right antecubital; 20:10 Follow up: Response: No adverse reaction; IV Status: Completed infusion nw1 Medication: 14:41 VIS not applicable for this client. ld1 Outcome: 16:30 Decision to Hospitalize by Provider. ec2 20:08 Admitted to Med/surg accompanied by tech, room 217, with oxygen, Report called to charlene Lindsey RN. All questions asked, answered. 20:08 Condition: stable 20:08 Condition: stable 20:08 Instructed on the need for admit, 20:55 Patient left the ED. mb9 Signatures: Dispatcher [employer] EDVainney Willett RN RN ld1 Severiano Schaeffer RN RN as6 Shreya Gleason RN RN mb9 Sharath Juarez MD MD ec2 Prachi Mathew RN RN nw1
--- NOTE | 2023-05-28 16:54 | RAD REPORT ---
EXAM DESCRIPTION: RADChest Single View05/28/2023 3:46 pm CLINICAL HISTORY: SOB COMPARISON: Chest Single View dated 04/02/2021; Chest Single View dated 12/05/2020; Chest Single View d ated 12/05/2020; Chest Single View dated 12/04/2020 TECHNIQUE: Portable AP view of the chest. FINDINGS: Improving airspace opacification in the left midlung. Central interstitial prominence and possible small left effusion are stable. No pneumothorax or effusion. The cardiomediastinal contours are unremarkable. IMPRESSION: Improving airspace opacification in the left mid lung. Stable central interstitial prominence and possible small left effusion. Findings suggest central con gestion/CHF.
[2023-05-28] MEDS ORDERED: ACETAMINOPHEN 500 MG TAB PO PRN (17:01)
[2023-05-28] MEDS ORDERED: ONDANSETRON 4 MG/2 ML VIAL IV PRN (17:01)
--- NOTE | 2023-05-28 17:23 | P.HP ---
Certification for Inpatient Patient admitted to: Inpatient With expected LOS: <2 Midnights Patient will require the following post-hospital care: None Practitioner: I am a practitioner with admitting privileges, knowledge of patient current condition, hospital course, and medical plan of care. Services: Services provided to patient in accordance with Admission requirements found in Title 42 Section 412.3 of the Code of Federal Regulations Patient History Date of Service: 05/28/23 Primary Care Provider: Dr. Lori Hoffman Reason for admission: Sepsis, pneumonia History of Present Illness: Mr. Sheffield, is 72-year-old black male with history of atrial fibrillation, CHF, CVA, insulin-dependent diabetes, GERD, hyperlipidemia, hypertension. Patient presented to ER via EMS with complaints of shortness of breath. Patient was reportedly had oxygenation in the lower 80s and the EMS subsequently called. Patient was recently diagnosed with pneumonia, is on baseline oxygen 3 L/min. patient denies chest pain, palpitation. Patient denies fever chills patient denies abdominal pain, nausea or vomiting. ED course: Vital signs blood pressure 134/73, pulse 118, respiration 22, temperature 98.4, pulse ox 98% on 3 L of oxygen. Patient in sinus tachycardia, chest x-ray shows Stable central interstitial prominence and possible small left effusion. Findings suggest central congestion/CHF . initial laboratory reports significant for lactic acidosis 2.3.Normal BNP 43. Admitting the patient with a diagnosis of hypoxia, sepsis, pneumonia. Allergies No Known Allergies Allergy (Unverified 12/03/17 11:37) Home medications list reviewed: Yes Home Medications: Apixaban [Eliquis *] 5 mg PO BID 12/03/17 Atorvastatin Calcium [Lipitor*] 40 mg PO DAILY 12/03/17 Docusate [Colace Cap*] 100 mg PO DAILY 12/03/17 Gabapentin [Neurontin*] 100 mg PO TID 12/03/17 Insulin Glargine,Hum.rec.anlog [Lantus] 10 units SQ DAILY 12/03/17 Metformin HCl [Glucophage*] 850 mg PO BID 12/03/17 Multivitamin [Daily Etta] 1 tab PO DAILY 12/03/17 Baclofen 10 mg PO TID 12/04/20 Insulin Lispro [Humalog*] 5 units SQ ACHS 12/04/20 Linagliptin [Tradjenta] 5 mg PO DAILY 12/04/20 Trazodone [Desyrel*] 100 mg PO BEDTIME 12/04/20 Calcitrol [Rocaltrol*] 0.25 mcg PO Q48H #30 cap 12/09/20 Meropenem [Merrem 500 MG/100 ML NS IVPB] 500 mg IV Q8H #21 bag 12/09/20 - Past Medical/Surgical History Diabetic: Yes -: CVA X3 -: HTN -: hyperlipidemia -: CHF -: GERD -: dysphagia -: left sided paralysis. 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 moist/pink, EOMI, Sclerae nonicteric Neck: Supple, 2+ carotid pulse no bruit, No LAD, Without JVD or thyroid abnormality Respiratory: Clear to auscultation bilaterally, Normal air movement Cardiovascular: Regular rate/rhythm, Normal S1 S2 Gastrointestinal: Normal bowel sounds, No tenderness Musculoskeletal: No tenderness Integumentary: No rashes Neurological: Normal gait, Normal speech, Normal strength at 5/5 x4 extr, Normal tone, Normal affect Lymphatics: No axilla or inguinal lymphadenopathy - Studies Laboratory Data (last 24 hrs) 05/28/23 05/28/23 05/28/23 15:02 15:02 15:02 WBC 6.60 Hgb 12.2 L Hct 38.6 L Plt Count 190 PT 12.0 INR 1.09 APTT 32.4 Sodium 138 Potassium 3.6 BUN 13 Creatinine 1.26 Glucose 109 H Total Bilirubin 0.5 AST 28 ALT 26 Alkaline Phosphatase 51 Assessment and Plan - Plan Assessment and plan Sepsis without hypotension Pneumonia Hypoxia Oxygen dependent Lactic acidosis * Acute, patient was brought in due to desaturation into 80s, * Patient is home oxygen dependent 3 L * Patient is lethargic arousable to call * Oxygenation improved SPO2 94% on 3 L of oxygen by nasal cannula * lactic acidosis 2.3., ABG now * Admit the patient in the telemetry unit, IV fluid, antibiotics .closely monitor patient's vital signs * Electrolyte management as per hospital electrolyte protocol Chronic A-fib * Chronic, controlled on Eliquis 2.5 p.o. twice daily at home * Patient denies chest pain or palpitation * Resume the home medication we will continue to monitor CHF * Chronic controlled, no recent hospital admission for CHF * Resume home medications CVA , left hemiplegia * Chronic, controlled. * Resume home meds Hyperlipidemia * Chronic, controlled Hypertension * Chronic, controlled, not on any antihypertensves at this time * Will continue to monitor Diabetes type 2, insulin dependent * Chronic, controlled on home insulin Levemir 10 units subcu daily * Started on blood sugar check 6 hours with sliding scale regular insulin * Hypoglycemic precaution CODE STATUS Full code DVT prophylaxis Resume Eliquis 2.5 p.o. twice daily Diet N.p.o. - Advance Directives Does patient have a Living Will: No Does patient have a Durable POA for Healthcare: No - Code Status/Comfort Care Code Status Assessed: Yes (Full code) Physician Review: Patient Assessed, Agree with Above Assessment and Plan Critical Care: No Time Spent Managing Pts Care (In Minutes): 55 (Minutes)
[2023-05-28] MEDS: INSULIN REGULAR (HUMAN) 100 UNIT/ML SQ SCH (18:00)
[2023-05-28] MEDS: APIXABAN 2.5 MG TABLET PO SCH (21:00)
[2023-05-28] MEDS ORDERED: ATORVASTATIN 20 MG TAB PO SCH (21:00)
[2023-05-28] MEDS: FAMOTIDINE 20 MG/2 ML VIAL IV SCH (22:26)
[2023-05-28] MEDS: CEFTRIAXONE 1,000 MG in NA CHLORIDE 0.9% 50 ML IVPB SCH (22:26)
[2023-05-28] MEDS: D5 0.45 NS 1,000 ML IV SCH (22:30)
[2023-05-29] MEDS: D5 0.45 NS 1,000 ML IV SCH (04:00)
[2023-05-29] MEDS: INSULIN REGULAR (HUMAN) 100 UNIT/ML SQ SCH ×4 (06:00→18:00)
[2023-05-29] MEDS ORDERED: ENOXAPARIN 40 MG/0.4 ML SQ SCH (09:00)
[2023-05-29] MEDS ORDERED: AZITHROMYCIN IV 500 MG in NA CHLORIDE 0.9% 250 ML IVPB SCH (09:00)
[2023-05-29] MEDS: FUROSEMIDE 40 MG/4 ML VIAL IV SCH (09:22)
[2023-05-29] MEDS: FAMOTIDINE 20 MG/2 ML VIAL IV SCH ×2 (09:23→22:44)
[2023-05-29] MEDS: APIXABAN 2.5 MG TABLET PO SCH ×2 (09:23→22:44)
[2023-05-29] MEDS: CEFTRIAXONE 1,000 MG in NA CHLORIDE 0.9% 50 ML IVPB SCH (09:23)
[2023-05-29 09:25] LABS: Absolute Lymphocytes (CBC) 1.5 K/uL (0.7-4.9); Hematocrit 35.1 % (39.6-49.0); Lymphocytes % 23.7 % (15.3-44.8); MPV 8.2 fL (7.6-11.3); Platelets 169 thou/uL (152-406); RBC Red Blood Cell Count 4.23 M/uL (4.33-5.43)
[2023-05-29 09:45] LABS: Magnesium 1.6 mg/dL (1.6-2.4); Phosphorus 2.7 mg/dL (2.5-4.9); Potassium 3.5 mEq/L (3.5-5.1)
--- NOTE | 2023-05-29 11:15 | RAD REPORT ---
EXAM DESCRIPTION: CT - Chest Angio - 05/29/2023 10:31 am CLINICAL HISTORY: RO PE COMPARISON: No comparisons TECHNIQUE: Dynamically enhanced axial 3 mm thick images of the chest were obtained during administra tion of <100> mL Isovue 370 IV contrast. Coronal and oblique reconstruction images were generated and reviewed. Exam utilizes a protocol for optimal evaluation of pulmonary arterial tree. Maximum intensity projections 3D imaging was utilized All CT scans are performed using dose optimization technique as appropriate and may include automated exposure control or mA/KV adjustment according to patient size. FINDINGS: Chest Wall: No suspicious thyroid nodules or pathologic lymphadenopathy. Gynecomastia. Lungs: Low lung volumes with dependent atelectasis . Motion limited. Pleura: No significant effusions or pneumothorax. Mediastinum/[place]: Prominent hilar lymph nodes bilaterally. Mild circumferential thickened distal esop hagus . Pulmonary arteries/Aorta: Enlarged main pulmonary artery. . No aortic aneurysm. Motion limited. No ce ntral pulmonary embolus. The segmental and subsegmental pulmonary arteries cannot be adequately asses sed. Heart: No significant pericardial effusion. Cardiomegaly. Upper abdomen: Hepatic steatosis. Bones: No acute abnormality. IMPRESSION: Limited by motion. No central pulmonary embolus. The segmental and subsegmental pulmonar y arteries cannot be adequately assessed, however due to motion. Small pleural effusions and dependen t atelectasis. Mild edema difficult to exclude.
--- NOTE | 2023-05-29 11:54 | P.PN ---
Subjective Date of Service: 05/29/23 Primary Care Provider: Dr. Lori Hoffman Chief Complaint: Shortness of breath Patient is 72 years of age admitted with shortness of breath very poor historian found to have low saturation history of stroke left-sided paralysis Review of Systems Respiratory: Shortness of Breath Gastrointestinal: Nausea Physical Examination - Vital Signs Temperature: 97.0 F Blood Pressure: 139/65 Pulse: 66 Respirations: 20 Pulse Ox (%): 97 - Physical Exam General: Alert, Oriented x3 Respiratory: Clear to auscultation bilaterally Cardiovascular: Edema Gastrointestinal: Normal bowel sounds, Soft and benign - Studies Laboratory Data (last 24 hrs) 05/28/23 05/28/23 05/28/23 15:02 15:02 15:02 WBC 6.60 Hgb 12.2 L Hct 38.6 L Plt Count 190 PT 12.0 INR 1.09 APTT 32.4 Sodium 138 Potassium 3.6 BUN 13 Creatinine 1.26 Glucose 109 H Total Bilirubin 0.5 AST 28 ALT 26 Alkaline Phosphatase 51 Assessment And Plan - Current Problems (Diagnosis) (1) Respiratory failure Current Visit: Yes Status: Acute Plan: atient is 72 years of age poor historian [facility] residence sided hemiparesis. With hypoxemia evidence of pulmonary embolism or pneumonia have underlying diastolic dysfunction and obstructive sleep apnea normal renal function ordered 2D echocardiogram is no evidence of infection add some Lasix however he ordered ABGs review resume all home medication patient is already on Eliquis Qualifiers: Respiratory failure complication: unspecified whether with hypoxia or hypercapnia Physician Review: Patient Assessed, Agree with Above Assessment and Plan
--- NOTE | 2023-05-29 11:57 | EKG ---
Test Date: 2023-05-28 Test Time: 15:21:01 Type Copy Examiner: YASIR MEASUREMENT RESULTS: Intervals: Rate: 125 AK: 168 QRSD: 88 QT: 328 QTc: 473 [place]: P: 43 AK: 168 QRS: 68 T: 63 INTERPRETIVE STATEMENTS: Sinus tachycardia Otherwise normal ECG Compared to ECG 04/02/2021 08:43:04 No significant changes Electronically Signed On 05-29-23 11:55:34 CDT by Louis Lopez
[2023-05-29] MEDS: INSULIN LISPRO 100 UNIT/ML SQ SCH ×2 (12:00→17:00)
[2023-05-29 13:32] LABS: Arterial Blood Carboxyhemoglob 1.7 % (0-1.5); Blood Gas Oxyhemoglobin 89.7 % (94-97); Blood O2 Saturation 92.3 % (92-98.5)
[2023-05-29] MEDS: BACLOFEN 10 MG TAB PO SCH ×2 (14:40→22:47)
[2023-05-29] MEDS: GABAPENTIN 100 MG CAP PO SCH ×2 (14:41→22:44)
[2023-05-29] MEDS: METFORMIN HCL 850 MG TAB PO SCH ×2 (16:40→17:00)
[2023-05-29] MEDS ORDERED: INSULIN GLARGINE 100 UNIT/ML SQ SCH (17:00)
[2023-05-29] MEDS: INSULIN GLARGINE 100 UNIT/ML SQ SCH (21:00)
[2023-05-29] MEDS: DIVALPROEX DR 500MG TAB PO SCH (22:44)
[2023-05-29] MEDS: METOPROLOL TAR 25 MG TAB PO SCH (22:44)
[2023-05-29] MEDS: ATORVASTATIN 40 MG TAB PO SCH (22:45)
[2023-05-29] MEDS: TRAZODONE 150 MG TAB PO SCH (22:48)
[2023-05-30] MEDS ORDERED: GLUCAGON 1 MG/VIAL IM PRN (05:50)
[2023-05-30] MEDS ORDERED: D50W 25 GM/50 ML SYRINGE IV PRN (05:50)
[2023-05-30] MEDS ORDERED: D10W 125 ML IV PRN (05:59)
[2023-05-30] MEDS: INSULIN REGULAR (HUMAN) 100 UNIT/ML SQ SCH ×5 (07:30→21:00)
[2023-05-30] MEDS: INSULIN LISPRO 100 UNIT/ML SQ SCH ×3 (08:00→17:00)
[2023-05-30] MEDS ORDERED: LIDOCAINE TOP SCH (09:00)
[2023-05-30] MEDS: HOME MED 1 EA UNK (Linagliptin [Tradjenta] 5 MG Tablet) PO SCH (09:00)
[2023-05-30] MEDS: LIDOCAINE 4% PATCH TD SCH (10:58)
[2023-05-30] MEDS: FUROSEMIDE 40 MG/4 ML VIAL IV SCH (10:59)
[2023-05-30] MEDS: FAMOTIDINE 20 MG/2 ML VIAL IV SCH ×2 (10:59→21:44)
[2023-05-30] MEDS: GABAPENTIN 100 MG CAP PO SCH ×3 (11:00→21:44)
[2023-05-30] MEDS: DOCUSATE NA 100 MG CAP PO SCH (11:00)
[2023-05-30] MEDS: DIVALPROEX DR 500MG TAB PO SCH ×2 (11:00→21:43)
[2023-05-30] MEDS: APIXABAN 2.5 MG TABLET PO SCH ×2 (11:00→22:16)
[2023-05-30] MEDS: LORATADINE 10 MG TAB PO SCH (11:00)
[2023-05-30] MEDS: METOPROLOL TAR 25 MG TAB PO SCH ×2 (11:00→22:16)
[2023-05-30] MEDS: BACLOFEN 10 MG TAB PO SCH ×3 (11:00→21:44)
[2023-05-30] MEDS: METFORMIN HCL 850 MG TAB PO SCH ×2 (11:00→18:17)
--- NOTE | 2023-05-30 11:49 | ECHO ---
HEIGHT: 5 ft 11 in WEIGHT: 292 lb 0.036 oz DATE OF STUDY: 05/30/[address]: Josiah Rose MD 2-DIMENSIONAL: YES M.MODE: YES DOPPLER: YES COLOR FLOW: YES TDS: YES PORTABLE: YES DEFINITY: BUBBLE STUDY: DIAGNOSIS: SHORTNESS OF BREATH CARDIAC HISTORY: CATHERIZATION: NO SURGERY: NO PROSTHETIC VALVE: NO PACEMAKER: NO MEASUREMENTS (cm) DIASTOLIC (NORMALS) SYSTOLIC (NORMALS) IVSd 1.2 (0.6-1.2) LA Diam 3.1 (1.9-4.0) LVEF 57% LVIDd 4.4 (3.5-5.7) LVIDs 3.1 (2.0-3.5) %FS 30% LVPWd 1.3 (0.6-1.2) Ao Diam 3.3 (2.0-3.7) 2 DIMENSIONAL ASSESSMENT: RIGHT ATRIUM: NORMAL LEFT ATRIUM: NORMAL RIGHT VENTRICLE: NORMAL LEFT VENTRICLE: LEFT VENTRICULAR HYPERTROPHY TRICUSPID VALVE: MILD TRICUSPID REGURGITATION MITRAL VALVE: MILD MITRAL REGURGITATION PULMONIC VALVE: NORMAL AORTIC VALVE: NORMAL PERICARDIAL EFFUSION: NONE AORTIC ROOT: NORMAL LEFT VENTRICULAR WALL MOTION: NORMAL DOPPLER/COLOR FLOW: SEE BELOW COMMENTS: 1. NORMAL LEFT VENTRICULAR EJECTION FRACTION 55-60% 2. NORMAL WALL MOTION 3. MILD CONCENTRIC LEFT VENTRICULAR HYPERTROPHY 4. MILD MITRAL REGURGITATION 5. MILD TRICUSPID REGURGITATION 6. POOR WINDOWS TECHNOLOGIST: DEJUAN PRADHAN
--- NOTE | 2023-05-30 14:05 | P.PN ---
Date of Service: 05/30/23 Subjective: Feeling better today; Doesn't feel like anything is worse; repeats he didn't get much sleep last night currently on 2L NC working with PT edema improving ROS: 10 point ROS as noted above, otherwise negative Physical Exam: GEN: Alert, oriented to place/self, hard of hearing , confusion HEENT: Normal conjunctiva, sclera anicteric CV: Regular rate and rhythm, trace edema Pulm: Nonlabored respirations on 3L NC, diminished at bases b/l ABD: Soft, nontender, nondistended vitals reviewed Problem List: Acute respiratory failure secondary to CHF Acute on chronic diastolic CHF h/o CVA with left-hemiplegia Cognitive communication deficit IDDM2 A-fib on chronic anticoagulation Hypertension Hyperlipidemia GERD Insomnia Acute respiratory failure secondary to CHF Acute on chronic diastolic CHF seen by Dr. Rose - [facility], does not suspect infection CXR (05/28): central congestion/CHF. possible small left pleural effusion CTA chest (05/29): Limited by motion. no PE. Small pleural effusions and dependent atelectasis. Mild edema difficult to exclude. Echo (05/30): 57% EF, mild concentric left ventricular hypertrophy, mild MR, mild TR, poor windows oxygen sat noted to be in 80s prior to admission at intermediate; on 3L NC at baseline BNP normal; pCO2 elevated Possible underlying obstructive sleep apnea discussed with Dr. Rose who recommends outpatient sleep study / workup for further evaluation continue IV lasix edema improving h/o CVA with left-hemiplegia Cognitive communication deficit Resident of [facility]; Poor historian. appears ~baseline continue PT IDDM2 Accu-Cheks, sliding scale insulin A-fib on chronic anticoagulation Hypertension Hyperlipidemia GERD Insomnia continue home medications as appropriate VTE: home eliquis Code: Full Dispo: Back to [facility] ~1 day Pending further improvement
[2023-05-30 15:19] VITALS: BMI 39.7
[2023-05-30] MEDS: INSULIN GLARGINE 100 UNIT/ML SQ SCH (21:00)
[2023-05-30] MEDS: TRAZODONE 150 MG TAB PO SCH (21:43)
[2023-05-30] MEDS: ATORVASTATIN 40 MG TAB PO SCH (21:44)
[2023-05-31] MEDS: INSULIN REGULAR (HUMAN) 100 UNIT/ML SQ SCH ×3 (07:30→16:30)
[2023-05-31] MEDS: INSULIN LISPRO 100 UNIT/ML SQ SCH ×3 (08:00→16:50)
[2023-05-31] MEDS: HOME MED 1 EA UNK (Linagliptin [Tradjenta] 5 MG Tablet) PO SCH (09:00)
--- NOTE | 2023-05-31 09:57 | P.PN ---
Date of Service: 05/31/23 Subjective: Patient is sleeping currently on 2L NC working with PT edema improving ROS: 10 point ROS as noted above, otherwise negative Physical Exam: GEN: Alert, oriented to place/self, hard of hearing , confusion HEENT: Normal conjunctiva, sclera anicteric CV: Regular rate and rhythm, trace edema Pulm: Nonlabored respirations on 3L NC, diminished at bases b/l ABD: Soft, nontender, nondistended vitals reviewed Problem List: Acute respiratory failure secondary to CHF Acute on chronic diastolic CHF h/o CVA with left-hemiplegia Cognitive communication deficit IDDM2 A-fib on chronic anticoagulation Hypertension Hyperlipidemia GERD Insomnia Acute respiratory failure secondary to CHF Acute on chronic diastolic CHF seen by Dr. Rose - pul, does not suspect infection CXR (05/28): central congestion/CHF. possible small left pleural effusion CTA chest (05/29): Limited by motion. no PE. Small pleural effusions and dependent atelectasis. Mild edema difficult to exclude. Echo (05/30): 57% EF, mild concentric left ventricular hypertrophy, mild MR, mild TR, poor windows oxygen sat noted to be in 80s prior to admission at residential; on 3L NC at baseline BNP normal; pCO2 elevated Possible underlying obstructive sleep apnea discussed with Dr. Rose who recommends outpatient sleep study / workup for further evaluation continue IV lasix edema improving H/o CVA with left-hemiplegia Cognitive communication deficit Resident of [facility]; Poor historian. appears ~baseline continue PT IDDM2 Accu-Cheks, sliding scale insulin A-fib on chronic anticoagulation Hypertension Hyperlipidemia GERD Insomnia continue home medications as appropriate VTE: home eliquis Code: Full Dispo: Back to [facility] ~1 day Pending further improvement
[2023-05-31] MEDS: METFORMIN HCL 850 MG TAB PO SCH (10:31)
[2023-05-31] MEDS: LIDOCAINE 4% PATCH TD SCH (10:32)
[2023-05-31] MEDS: LORATADINE 10 MG TAB PO SCH (10:32)
[2023-05-31] MEDS: DOCUSATE NA 100 MG CAP PO SCH (10:32)
[2023-05-31] MEDS: DIVALPROEX DR 500MG TAB PO SCH (10:32)
[2023-05-31] MEDS: GABAPENTIN 100 MG CAP PO SCH ×2 (10:33→14:00)
[2023-05-31] MEDS: FAMOTIDINE 20 MG/2 ML VIAL IV SCH (10:33)
[2023-05-31] MEDS: APIXABAN 2.5 MG TABLET PO SCH (10:33)
[2023-05-31] MEDS: METOPROLOL TAR 25 MG TAB PO SCH (10:33)
[2023-05-31] MEDS: FUROSEMIDE 40 MG/4 ML VIAL IV SCH (10:33)
[2023-05-31] MEDS: BACLOFEN 10 MG TAB PO SCH ×2 (10:33→14:00)
[2023-05-31 11:02] VITALS: O2SAT 98
[2023-05-31 12:22] VITALS: TEMP 97
--- NOTE | 2023-05-31 12:47 | P.DS ---
Admission Date: 05/28/23 Discharge Date: 05/31/23 Reason for Admission: Shortness of breath Brief History of Present Illness: Mr. Sheffield, is 72-year-old black male with history of atrial fibrillation, CHF, CVA, insulin-dependent diabetes, GERD, hyperlipidemia, hypertension. Patient p resented to ER via EMS with complaints of shortness of breath. Patient was reportedly had oxygenation in the lower 80s and the EMS subsequently called. Patient was recently diagnosed with pneumonia, is on baseline oxygen 3 L/min. patient denies chest pain, palpitation. Patient denies fever chills patient denies abdominal pain, nausea or vomiting. ED course: Vital signs blood pressure 134/73, pulse 118, respiration 22, temperature 98.4, pulse ox 98% on 3 L of oxygen. Patient in sinus tachycardia, chest x-ray shows Stable central interstitial prominence and possible small left effusion. Findings suggest central congestion/CHF . initial laboratory reports significant for lactic acidosis 2.3.Normal BNP 43. Admitting the patient with a diagnosis of hypoxia, sepsis, pneumonia. Hospital Course: Mr. Rodriguez is a pleasant 72-year-old black male with a past medical history significant for CHF with CVA, insulin-dependent diabetes, hyperlipidemia, hypertension who was admitted to the [facility] on 1024 for acute hypoxia due to denaturing on the low 80s. Patient's oxygenation improved in the hospital. 1 dose of antibiotics was given in the emergency room. Patient was admitted to closely monitor as patient was recently diagnosed with pneumonia, was on home oxygen 3 L/min. Patient was seen by Dr. Fleming manager of case, who do not suspect infection CXR (05/28): central congestion/CHF. possible small left pleural effusion CTA chest (05/29): Limited by motion. no PE. Small pleural effusions and depe ndent atelectasis. Mild edema difficult to exclude. Echo (05/30): 57% EF, mild concentric left ventricular hypertrophy, mild MR, mild TR, poor windows oxygen sat noted to be in 80s prior to admission at [facility]; on 3L NC at baseline BNP normal; pCO2 elevated Possible underlying obstructive sleep apnea discussed with Dr. Rose who recommends outpatient sleep study / workup for further evaluation On 05/31/2020, Mr. Rodriguez was seen on morning rounds and deemed medically stable for discharge to [facility]. Patient was discharged with instructions to schedule follow-up appointments with PCP. Patient to continue the home medications. Medications No new medication added to the home medication Continue the home medication which includes Eliquis 2.5 p.o. twice daily Atorvastatin 40 mg p.o. at bedtime Baclofen 5 mg p.o. 3 times daily Depakote 1000 mg p.o. twice daily Colace 100 mg p.o. daily Famotidine 20 mg p.o. twice daily Gabapentin 100 mg p.o. 3 times daily Insulin glargine 10 units subcu at bedtime Insulin human lispro 5 unit SQ 3 times daily Loratadine 10 mg p.o. daily Metformin 850 mg p.o. twice daily Metoprolol 25 mg p.o. twice daily Follow-up PCP 3 to 5 days Paleontologist in 1 month to schedule sleep study <Anya Moreno - Last Filed: 05/31/23 12:48> Admission Date: 05/28/23 Discharge Date: 05/31/23 Hospital Course: Updated Hospital Course Presented with acute hypoxia due to denaturing on the low 80s. Patient's oxygenation improved in the hospital. 1 dose of antibiotics was given in the emergency room. Patient was admitted to closely monitor as patient was recently diagnosed with pneumonia, was on home oxygen 3 L/min. Patient was seen by Dr. Rose manager of case, who did not suspect infection and discontinued antibiotics, and felt this was more due to a combination of mild acute CHF exacerbation and suspected underlying sleep apnea. Patient was monitored and remained afebrile and without leukocytosis after antibiotic discontinuation. He was treated with IV lasix 40mg daily, and remained stable on his usual home O2 supplementation, 3L NC. Dr. Rose recommended outpatient sleep study / workup for further evaluation Medications Continue medications as previously prescribed Recommend daily weights and using an additional 40mg lasix as needed for worsening CHF symptoms and 2lb+ weight gain He may need to increase to 40mg twice daily if requiring the PRN dose frequently. <Dalton Sandoval - Last Filed: 05/31/23 22:31> Disposition: TRANSFER TO [facility] Discharge Condition: GOOD Vital Signs/Physical Exam: Temp Pulse Resp BP Pulse Ox 97.0 F 71 14 150/83 H 96 05/31/23 12:00 05/31/23 12:00 05/31/23 12:00 05/31/23 12:00 05/31/23 12:00 Laboratory Data at Discharge: WBC Cancelled 05/30/23 05:00 Hgb Cancelled 05/30/23 05:00 Hct Cancelled 05/30/23 05:00 Plt Count Cancelled 05/30/23 05:00 PT 12.0 SECONDS (9.5-12.5) 05/28/23 15:02 INR 1.09 05/28/23 15:02 APTT 32.4 SECONDS (24.3-36.9) 05/28/23 15:02 Sodium Cancelled 05/30/23 05:00 Potassium Cancelled 05/30/23 05:00 BUN Cancelled 05/30/23 05:00 Creatinine Cancelled 05/30/23 05:00 Glucose Cancelled 05/30/23 05:00 Phosphorus Cancelled 05/30/23 05:00 Magnesium Cancelled 05/30/23 05:00 Total Bilirubin 0.5 mg/dL (0.2-1.0) 05/28/23 15:02 AST 28 U/L (15-37) 05/28/23 15:02 ALT 26 U/L (16-61) 05/28/23 15:02 Alkaline Phosphatase 51 U/L (45-117) 05/28/23 15:02 Triglycerides 115 mg/dL (<150) 05/29/23 09:11 Cholesterol 94 mg/dL (<200) 05/29/23 09:11 HDL Cholesterol 30 mg/dL (40-60) L 05/29/23 09:11 Cholesterol/HDL Ratio 3.13 05/29/23 09:11 <Anya Moreno - Last Filed: 05/31/23 12:48> Vital Signs/Physical Exam: Temp Pulse Resp BP Pulse Ox 97.0 F 70 16 127/64 94 05/31/23 16:00 05/31/23 16:00 05/31/23 16:00 05/31/23 16:00 05/31/23 16:00 Laboratory Data at Discharge: WBC 9.30 thou/uL (4.3-10.9) 05/31/23 13:35 Hgb 13.2 g/dL (13.6-17.9) L 05/31/23 13:35 Hct 40.7 % (39.6-49.0) 05/31/23 13:35 Plt Count 194 thou/uL (152-406) 05/31/23 13:35 PT 12.0 SECONDS (9.5-12.5) 05/28/23 15:02 INR 1.09 05/28/23 15:02 APTT 32.4 SECONDS (24.3-36.9) 05/28/23 15:02 Sodium 138 mEq/L (136-145) 05/31/23 13:35 Potassium 4.6 mEq/L (3.5-5.1) 05/31/23 13:35 BUN 11 mg/dL (7-18) 05/31/23 13:35 Creatinine 1.14 mg/dL (0.70-1.30) 05/31/23 13:35 Glucose 85 mg/dL (74-106) 05/31/23 13:35 Phosphorus 3.0 mg/dL (2.5-4.9) 05/31/23 13:35 Magnesium 2.0 mg/dL (1.6-2.4) 05/31/23 13:35 Total Bilirubin 0.5 mg/dL (0.2-1.0) 05/28/23 15:02 AST 28 U/L (15-37) 05/28/23 15:02 ALT 26 U/L (16-61) 05/28/23 15:02 Alkaline Phosphatase 51 U/L (45-117) 05/28/23 15:02 Triglycerides 115 mg/dL (<150) 05/29/23 09:11 Cholesterol 94 mg/dL (<200) 05/29/23 09:11 HDL Cholesterol 30 mg/dL (40-60) L 05/29/23 09:11 Cholesterol/HDL Ratio 3.13 05/29/23 09:11 <Dalton Sandoval - Last Filed: 05/31/23 22:31> <Anya Moreno - Last Filed: 05/31/23 12:48> <Dalton Sandoval - Last Filed: 05/31/23 22:31> Home Medications: RX: Acetaminophen [Tylenol] 650 mg PO Q6HP PRN 05/29/23 RX: Apixaban [Eliquis *] 5 mg PO BID 05/29/23 RX: Atorvastatin Calcium [Lipitor] 40 mg PO BEDTIME 05/29/23 RX: Baclofen 5 mg PO TID 05/29/23 RX: Cholecalciferol (Vitamin D3) [Vitamin D3] 2,000 unit PO DAILY 05/29/23 RX: Divalproex Sodium 1,000 mg PO BID 05/29/23 RX: Docusate [Colace Cap*] 100 mg PO DAILY 05/29/23 RX: Doxycycline Hyclate 100 mg PO BID 05/29/23 RX: Fluticasone [Flonase 50MCG Nasal [facility]*] 2 spr DANA DAILY 05/29/23 RX: Furosemide [Lasix*] 40 mg PO DAILY 05/29/23 RX: Gabapentin 100 mg PO TID 05/29/23 RX: Insulin Glargine,Hum.rec.anlog [Lantus] 10 unit SQ BEDTIME 05/29/23 RX: Insulin Lispro [Humalog] 5 unit SQ TIDWM 05/29/23 RX: Ipratropium/Albuterol Sulfate [Iprat-Albut 0.5-3(2.5) mg/3 ml] 1 amp NEB TID 05/29/23 RX: Lidocaine [Salonpas] 1 patch TOP DAILY 05/29/23 RX: Linagliptin [Tradjenta] 5 mg PO DAILY 05/29/23 RX: Loratadine [Claritin*] 10 mg PO DAILY 05/29/23 RX: Melatonin 5 mg PO BEDTIME 05/29/23 RX: Metformin HCl [Glucophage*] 850 mg PO BID 05/29/23 RX: Metoprolol Tartrate [Lopressor*] 25 mg PO BID 05/29/23 RX: Multivitamin [Multivitamins] 1 tab PO DAILY 05/29/23 RX: Trazodone HCl 300 mg PO BEDTIME 05/29/23 Physician Discharge Instructions: Presented with acute hypoxia due to denaturing on the low 80s. Patient's oxygenation improved in the hospital. 1 dose of antibiotics was given in the emergency room. Patient was admitted to closely monitor as patient was recently diagnosed with pneumonia, was on home oxygen 3 L/min. Patient was seen by Dr. Rose manager of case, who did not suspect infection and discontinued antibiotics, and felt this was more due to a combination of mild acute CHF exacerbation and suspected underlying sleep apnea. Patient was monitored and remained afebrile and without leukocytosis after antibiotic dis continuation. He was treated with IV lasix 40mg daily, and remained stable on his usual home O2 supplementation, 3L NC. Dr. Rose recommended outpatient sleep study / workup for further evaluation Medications Continue medications as previously prescribed Recommend daily weights and using an additional 40mg lasix as needed for worsening CHF symptoms and 2lb+ weight gain He may need to increase to 40mg twice daily if requiring the PRN dose frequently. Follow-up PCP [address] Rose in a few weeks, discuss sleep study CXR (05/28): central congestion/CHF. possible small left pleural effusion CTA chest (05/29): Limited by motion. no PE. Small pleural effusions and dependent atelectasis. Mild edema difficult to exclude. Echo (05/30): 57% EF, mild concentric left ventricular hypertrophy, mild MR, mild TR, poor windows Followup: Josiah Rose MD [ACTIVE - CAN ADMIT] - NONE,NONE [Primary Care Provider] -
[2023-05-31 13:49] LABS: Absolute Lymphocytes (CBC) 2.6 K/uL (0.7-4.9); Hematocrit 40.7 % (39.6-49.0); Lymphocytes % 28.2 % (15.3-44.8); MCV 82.7 fL (80-100); MPV 8.7 fL (7.6-11.3); Platelets 194 thou/uL (152-406); RBC Red Blood Cell Count 4.93 M/uL (4.33-5.43)
[2023-05-31 14:20] LABS: Potassium 4.6 mEq/L (3.5-5.1)
[2023-05-31 17:10] VITALS: BP 127/64
== END 2023-05-31 17:54 | DRG 291 ==
LOC: ER 14:34 → ERHOLD 16:57 → 2ND 20:09
PROVIDERS: ADMIT Hospitalist; ATTEND Hospitalist
DX: I11.0 Hypertensive heart disease with heart failure (principal); I50.33 Acute on chronic diastolic (congestive) heart failure; J96.01 Acute respiratory failure with hypoxia; E87.20 Acidosis, unspecified; I48.20 Chronic atrial fibrillation, unspecified; I69.354 Hemiplegia and hemiparesis following cerebral infarction affecting left non-dominant side; E11.9 Type 2 diabetes mellitus without complications; I08.1 Rheumatic disorders of both mitral and tricuspid valves; G47.00 Insomnia, unspecified; E78.5 Hyperlipidemia, unspecified; K21.9 Gastro-esophageal reflux disease without esophagitis; R41.841 Cognitive communication deficit; Z79.4 Long term (current) use of insulin; Z79.01 Long term (current) use of anticoagulants; Z99.81 Dependence on supplemental oxygen; Z90.49 Acquired absence of other specified parts of digestive tract; Z79.84 Long term (current) use of oral hypoglycemic drugs; Z79.899 Other long term (current) drug therapy
CPT/HCPCS: 36415; 36600; 71045; 71275; 80048; 80053; 80061; 82805; 82947; 83605; 83735; 83880; 84100; 84145; 84443; 85025; 85610; 85730; 87040; 93005; 93306; 96365; 96366; 96375; 97110; 97161; 97530; 99285; J0696; J1815; J1940; J2001; J7030; J7050; J7799; Q9967

== ENCOUNTER 2023-06-08 15:21 | Inpatient (IN) | payer OTHER ==
--- OUTSIDE RECORDS SUMMARY | 2023-06-08 15:30 | XMS REPORT | Continuity of Care Document ---
:1950 Author Organization [facility] t Address [address] [place] [address] [address] [place] [address] Care Team Providers Name Role Phone KATRIN PETERS Attending Clinician Unavailable ALEX_BAHC_Todd_Vicki Attending Clinician Unavailable Renita Lam Attending Clinician [phone] Rebeka Alonso Attending Clinician [phone] Kirstie Phan Attending Clinician [phone] GC_BAHC_Spanchon_G Attending Clinician Unavailable JENNIFER SMILEY Attending Clinician Unavailable Katrin Peters MD Attending Clinician Unavailable Americo Segura MD, Tanvi [place] Attending Clinician [phone] Myra Arreola MD Attending Clinician Eva Galvan MD Attending Clinician Rishabh Berrios Attending Clinician KATRIN PETERS Admitting Clinician Unavailable JUAN JOSEBAHC_Leanne Admitting Clinician Unavailable GC_BAHC_Genaro_G Admitting Clinician Unavailable Payers Payer Name Policy Type Policy Number Effective Date Expiration Date S patricia [place]IC[place]: [id number] 2012 [employer] 00:00:00 SHAILESH SAMSON - [id number] 2021 2023 [facility] 00:00:00 00:00:00 STAR PLUS - [facility] CARE (MEDICAID HMO) MEDICARE A B [id number] 2012 00:00:00 MEDICAID OF [place] [id number] 2017 00:00:00 Problems Condition Condition Condition Status [...] for Problem Active Privi a personal Personal 8-29 Medica l care Care 00:00: assistance Assistance [...] 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 00:00: 00 Hemiplegia [...] fibrillati fibrillati nce 04-05 [facility] kes on 00:00: Medical 00 Center Cerebrovas Cerebrovas [...] 2019-04-05 Memoria (disorder) (disorder) 21:49:11 l Active [place] Problem 04/05/2019 [facility] Hemiparesi Hemipares Problem Active 2019-04-05 Memoria s is 21:49:11 l (disorder) (disorder) Bjorn rmann Active Problem 04/05/2019 [facility] Hemiplegia Hemiplegi Problem Active 2019-04-05 Memoria (disorder) a 21:49:11 l (disorder) Alex n Active Problem 04/05/2019 [facility] Hypertensi Problem Active 2019-04-05 Kai loza ve Hypertensi 21:49:11 l disorder, ve [place] systemic disorder, arterial systemic (disorder) arterial (disorder) Active Problem 04/05/2019 [facility] Hypokalemi Hypokalem Problem Active 2019-04-05 Memoria a ia 21:49:11 l (disorder) (disorder) Bjorn rmann Active Problem 04/05/2019 [facility] Incoordina Incoordin Problem Active 2019-04-05 Memoria tion ation 21:49:11 l (finding) (finding) Herm jason Active Problem 04/05/2019 [facility] Spasticity Spasticit [...] Memori a Medicati Medicati l on on [facility] Allergie s s NO KNOWN Allergy Active [facility] Social History Social Habit Start Date Stop Date Quantity Comments Source Sex Assigned At [birth year] [facility] 00:00:00 00:00:00 [facility] Center Smoking Status Start Date Stop Date Source Never Smoker [facility] Social History 2019-01-01 19:01:41 2019-01-01 19:01:41 [facility] Medications Ordered Filled Start Stop Current Ordering [...] po daily daily daily aspirin 81 2020-0 2022- No 81mg QD Take [address] [facility] chewable 04-12 tablet (81 L ukes tablet 00:00: 23:59 mg total) Medic al 00 :00 by mouth Center daily. aspirin 81 2020-0 202- No 81mg QD Take [address] [facility] MG chewable 04-12 tablet (81 L ukes tablet 00:00: 23:59 mg total) Medic al 00 :00 by mouth Center daily. dexAMETHaso 2020-0 2021- No 6mg QD Take [address] [facility] ne 04-1210 tablet (6 [facility] (DECADRON) 00:00: 23:59 mg total) M edical 6 MG tablet 00 :00 by mouth Cent er daily for 2 days. dexAMETHaso 2020-0 202- No 6mg QD Take [address] [facility] ne 04-12-10 tablet (6 [facility] (DECADRON) 00:00: 23:59 mg total) M edical 6 MG tablet 00 :00 by mouth Cent er daily for 2 days. apixaban 0 Yes 5mg Q.5D Take [address] [facility] (ELIQUIS) 5 04-11 tablet (5 Liam es mg Tab 00:00: mg total) Medica l tablet 00 by mouth 2 Center (two) times daily. baclofen 0 Yes 5mg Q.[id number] Take [address] (LIORESAL) 04-11 [id number] tablet (5 [facility] 5 mg Tab 00:00: 3D mg total) Medi jennifer 00 by mouth 3 Center (three) times daily. famotidine 0 Yes 20mg Q.5D Take 1 [facility] (PEPCID) 20 - tablet (20 Ofelia kes MG tablet 00:00: mg total) Med ical 00 by mouth 2 Center (two) times daily. insulin 2020-0 Yes 10U QD Inject 10 [facility] glargine -07 [facility] (Lantus 00:00: subcutaneo Medi jennifer Solostar 00 usly every Cente r U-100 morning. Insulin) 100 unit/mL (3 mL) InPn apixaban 2020-0 Yes 5mg Q.5D Take [address] [facility] [address] (ELIQUIS) 5 9-07 tablet (5 Liam es mg Tab 00:00: mg total) Medica l tablet 00 by mouth 2 Center (two) times daily. baclofen 202-0 Yes 5mg Q.[id number] Take [address] (LIORESAL) 9- [id number] tablet (5 [facility] 5 mg Tab 00:00: 3D mg total) Medi jennifer 00 by mouth 3 Center (three) times daily. famotidine 2020-0 Yes 20mg Q.5D Take 1 [facility] (PEPCID) 20 9-07 tablet (20 Ofelia kes MG tablet 00:00: mg total) Med ical 00 by mouth 2 Center (two) times daily. insulin 2020-0 Yes 10U QD Inject 10 [facility] glargine 9-07 [facility] (Lantus 00:00: subcutaneo Medi jennifer Solostar 00 usly every Cente r U-100 morning. Insulin) 100 unit/mL (3 mL) InPn apixaban 2020-0 Yes 5mg Q.5D Take [address] [facility] [address] (ELIQUIS) 5 9-07 tablet (5 Liam es mg Tab 00:00: mg total) Medica l tablet 00 by mouth 2 Center (two) times daily. baclofen 2020-0 Yes 5mg Q.[id number] Take [address] (LIORESAL) 9- [id number] tablet (5 [facility] 5 mg Tab 00:00: 3D mg total) Medi jennifer 00 by mouth 3 Center (three) times daily. famotidine 1-0 Yes 20mg Q.5D Take 1 [facility] (PEPCID) 20 9-07 tablet (20 Ofelia kes MG tablet 00:00: [...] mouth 2 Center (two) times daily. baclofen 202-0 Yes 5mg Q.[id number] Take [address] (LIORESAL) 9- [id number] tablet (5 [facility] 5 mg Tab 00:00: 3D mg total) Medi jennifer 00 by mouth 3 Center (three) times daily. famotidine 2020-0 Yes 20mg Q.5D Take 1 [facility] (PEPCID) 20 9-07 tablet (20 Ofelia kes MG tablet 00:00: mg total) Med ical 00 by mouth 2 Center (two) times daily. insulin 2020-0 Yes 10U QD Inject 10 [facility] glargine 9-07 [facility] (Lantus 00:00: subcutaneo Medi jennifer Solostar 00 usly every Cente r U-100 morning. Insulin) 100 unit/mL (3 mL) InPn apixaban 2020-0 Yes 5mg Q.5D Take [address] [facility] [address] (ELIQUIS) 5 9-07 tablet (5 Liam es mg Tab 00:00: mg total) Medica l tablet 00 by mouth 2 Center (two) times daily. baclofen 2020-0 Yes 5mg Q.[id number] Take [address] (LIORESAL) - [id number] tablet (5 [facility] 5 mg Tab 00:00: 3D mg total) Medi jennifer 00 by mouth 3 Center (three) times daily. famotidine 2020-0 Yes 20mg Q.5D Take 1 [facility] (PEPCID) 20 9-07 tablet (20 Ofelia kes MG tablet 00:00: [...] mouth 2 Center (two) times daily. baclofen Yes 5mg Q.[id number] Take [address] (LIORESAL) 04-11 [id number] tablet (5 [facility] 5 mg Tab 00:00: 3D mg total) Medi jennifer 00 by mouth 3 Center (three) times daily. famotidine Yes 20mg Q.5D Take 1 [facility] (PEPCID) 20 04-11 tablet (20 Ofelia kes MG tablet 00:00: mg total) Med ical 00 by mouth 2 Center (two) times daily. insulin Yes 10U QD Inject 10 [facility] glargine 04-11 [facility] (Lantus 00:00: subcutaneo Medi jennifer Solostar 00 usly every Cente r U-100 morning. Insulin) 100 unit/mL (3 mL) InPn carvediloL 2021- No 6.25mg Q.5D Take 1 [...] needed for up to 360 days. acetaminoph 2021- No 650mg Take [address] en 04-11 tablets [facility] (TYLENOL) 00:00: 23:59 (650 mg Medi jennifer 325 MG 00 :00 total) by Center tablet mouth every 6 (six) hours as needed for up to 360 days. atorvastati atorvastati No atorvastat [facility] 40 [...] Basaglar Basaglar No Basaglar Margie via [employer] KwWilliam [employer] Medica l U-100 U-100 U-100 Insulin [...] for 30 days. docusate docusate No docusate Amrgie via sodium 100 sodium 100 sodium 100 [...] day once a day once a day Vital Signs Vital Name Observation Time Observation Value Comments Source WEIGHT 2021-04-11 05:37:00 122.4 kg WEIGHT 2021-04-06 05:00:00 122 kg WEIGHT 2021-04-05 08:00:00 122.2 kg WEIGHT 2021-04-04 06:00:00 113.7 kg HEIGHT 2021-04-03 10:00:00 177.8 cm WEIGHT 2021-04-02 17:00:00 113 kg BP Diastolic 2022-11-30 00:00:00 61 mm[Hg] Sarah [facility] Height 2022-11-30 00:00:00 69 [in_i] Sarah Quinn [facility] BMI (Body Mass Index) 2022-11-30 00:00:00 43.2 kg/m2 [facility] BP Systolic 2022-11-30 00:00:00 122 mm[Hg] [facility] Body Weight 2022-11-30 00:00:00 4681 [oz_av] [facility] BP Diastolic 2022-11-27 00:00:00 81 mm[Hg] [facility] Height 2022-11-27 00:00:00 69 [in_i] [facility] BMI (Body Mass Index) 2022-11-27 00:00:00 43.2 kg/m2 [facility] BP Systolic 2022-11-27 00:00:00 156 mm[Hg] [facility] Body Weight 2022-11-27 00:00:00 4678 [oz_av] [facility] BP Diastolic 2022-10-09 00:00:00 71 mm[Hg] [facility] Height 2022-10-09 00:00:00 69 [in_i] [facility] BMI (Body Mass Index) 2022-10-09 00:00:00 44.3 kg/m2 [facility] BP Systolic 2022-10-09 00:00:00 134 mm[Hg] [facility] Body Weight 2022-10-09 00:00:00 4800 [oz_av] [facility] Height 2022-09-11 00:00:00 69 [in_i] [facility] BMI (Body Mass Index) 2022-09-11 00:00:00 44.3 kg/m2 [facility] Body Weight 2022-09-11 00:00:00 4800 [oz_av] [facility] Height 2022-08-24 00:00:00 69 [in_i] [facility] BMI (Body Mass Index) 2022-08-24 00:00:00 44.3 kg/m2 [facility] Body Weight 2022-08-24 00:00:00 4800 [oz_av] [facility] Height 2022-08-03 00:00:00 69 [in_i] [facility] BMI (Body Mass Index) 2022-08-03 00:00:00 42.8 kg/m2 [facility] Body Weight 2022-08-03 00:00:00 4640 [oz_av] [facility] BP Diastolic 2022-07-17 00:00:00 80 mm[Hg] [facility] Height 2022-07-17 00:00:00 69 [in_i] [facility] BMI (Body Mass Index) 2022-07-17 00:00:00 42.9 kg/m2 [facility] BP Systolic 2022-07-17 00:00:00 138 mm[Hg] [facility] Body Weight 2022-07-17 00:00:00 4645 [oz_av] [facility] BP Diastolic 2022-06-26 00:00:00 80 mm[Hg] [facility] Height 2022-06-26 00:00:00 69 [in_i] [facility] BMI (Body Mass Index) 2022-06-26 00:00:00 42.9 kg/m2 [facility] BP Systolic 2022-06-26 00:00:00 138 mm[Hg] [facility] Body Weight 2022-06-26 00:00:00 4645 [oz_av] [facility] BP Diastolic 2022-06-12 00:00:00 70 mm[Hg] [facility] Height 2022-06-12 00:00:00 69 [in_i] [facility] BMI (Body Mass Index) 2022-06-12 00:00:00 41.6 kg/m2 [facility] BP Systolic 2022-06-12 00:00:00 128 mm[Hg] [facility] Body Weight 2022-06-12 00:00:00 4502 [oz_av] [facility] BP Diastolic 2022-05-15 00:00:00 80 mm[Hg] [facility] Height 2022-05-15 00:00:00 69 [in_i] [facility] BMI (Body Mass Index) 2022-05-15 00:00:00 41.4 kg/m2 [facility] BP Systolic 2022-05-15 00:00:00 138 mm[Hg] [facility] Body Weight 2022-05-15 00:00:00 4486 [oz_av] [facility] BP Diastolic 2022-05-01 00:00:00 80 mm[Hg] [facility] Height 2022-05-01 00:00:00 69 [in_i] [facility] BMI (Body Mass Index) 2022-05-01 00:00:00 41.4 kg/m2 [facility] BP Systolic 2022-05-01 00:00:00 130 mm[Hg] [facility] Body Weight 2022-05-01 00:00:00 4486 [oz_av] [facility] BP Diastolic 2022-03-29 00:00:00 80 mm[Hg] [facility] Height 2022-03-29 00:00:00 69 [in_i] [facility] BMI (Body Mass Index) 2022-03-29 00:00:00 26.2 kg/m2 [facility] BP Systolic 2022-03-29 00:00:00 138 mm[Hg] [facility] Body Weight 2022-03-29 00:00:00 2837 [oz_av] [facility] BP Diastolic 2022-03-23 00:00:00 80 mm[Hg] [facility] Height 2022-03-23 00:00:00 69 [in_i] [facility] BP Systolic 2022-03-23 00:00:00 138 mm[Hg] [facility] Body Weight 2022-03-23 00:00:00 2837 [oz_av] [facility] BP Diastolic 2022-02-13 00:00:00 78 mm[Hg] [facility] Height 2022-02-13 00:00:00 69 [in_i] [facility] BMI (Body Mass Index) 2022-02-13 00:00:00 48.8 kg/m2 [facility] BP Systolic 2022-02-13 00:00:00 122 mm[Hg] [facility] Body Weight 2022-02-13 00:00:00 5288 [...] Medical BP Systolic 2022-01-23 00:00:00 129 mm[Hg] [facility] Body Weight 2022-01-23 00:00:00 5288 [oz_av] [facility] BP Diastolic 2022-01-09 00:00:00 76 mm[Hg] [facility] Height 2022-01-09 00:00:00 69 [in_i] [facility] BMI (Body Mass Index) 2022-01-09 00:00:00 48.8 kg/m2 [facility] BP Systolic 2022-01-09 00:00:00 127 mm[Hg] [facility] Body Weight 2022-01-09 00:00:00 5288 [oz_av] [facility] BP Diastolic 2021-12-22 00:00:00 62 mm[Hg] [facility] Height 2021-12-22 00:00:00 69 [in_i] [facility] BMI (Body Mass Index) 2021-12-22 00:00:00 49 kg/m2 [facility] BP Systolic 2021-12-22 00:00:00 122 mm[Hg] [facility] Body Weight 2021-12-22 00:00:00 5312 [oz_av] [facility] BP Diastolic 2021-12-08 00:00:00 67 mm[Hg] [facility] Height 2021-12-08 00:00:00 69 [in_i] [...] Medical BP Systolic 2021-12-06 00:00:00 115 mm[Hg] [facility] Body Weight 2021-12-06 00:00:00 5360 [oz_av] [facility] BP Diastolic 2021-11-24 00:00:00 79 mm[Hg] [facility] Height 2021-11-24 00:00:00 69 [in_i] [facility] BMI (Body Mass Index) 2021-11-24 00:00:00 49.5 kg/m2 [facility] 2021-11-24 00:00:00 130 mm[Hg] [facility] Body Weight 2021-11-24 00:00:00 5360 [oz_av] [facility] BP Diastolic 2021-11-16 00:00:00 51 mm[Hg] [facility] Height 2021-11-16 00:00:00 69 [in_i] [facility] BMI (Body Mass Index) 2021-11-16 00:00:00 49.2 [facility]/m2 [facility]olic 2021-11-16 00:00:00 101 mm[Hg] [facility] Body Weight 2021-11-16 00:00:00 5332 [oz_av] [facility] WEIGHT 2021-04-11 05:37:00 122.4 kg WEIGHT 2021-04-06 05:00:00 122 kg WEIGHT 2021-04-05 08:00:00 122.2 kg WEIGHT 2021-04-04 06:00:00 113.7 kg HEIGHT 2021-04-03 10:00:00 177.8 cm WEIGHT 2021-04-02 17:00:00 113 kg Systolic blood 2021-04-11 11:00:00 148 mm[Hg] [facility] Diastolic blood 2021-04-11 11:00:00 67 mm[Hg] [facility] Heart rate 2021-04-11 11:00:00 62 /min [facility] Body temperature 2021-04-11 11:00:00 36.72 Adriana [facility] Respiratory rate 2021-04-11 11:00:00 18 /min [facility] Oxygen saturation in 2021-04-11 11:00:00 98 /min [facility] Arterial blood by Medical Ce nter Pulse oximetry Body weight 2021-04-11 05:37:00 122.4 kg [facility] BMI 2021-04-11 05:37:00 38.72 kg/m2 [facility] Body height 2021-04-03 10:00:00 177.8 cm [facility] Height 2019-01-01 19:01:00 175.26 cm [facility] Weight 2019-01-01 19:01:00 [facility] [place] BMI Calculated 2019-01-01 19:01:00 [facility] Respitory Rate 2019-01-01 19:01:00 [facility] Heart Rate 2019-01-01 19:01:00 [facility] [place] Systolic (mm Hg) 2019-01-01 19:01:00 Daren rial [facility]ille[facility] Diastolic (mm Hg) 2019-01-01 19:01:00 Mem o[facility] Systolic (mm Hg) 2018-09-03 20:22:00 Daren rial [place] Diastolic (mm Hg) 2018-09-03 20:22:00 Mem orial [facility] Heart Rate 2018-09-03 20:22:00 [facility] [place] Respitory Rate 2018-09-03 20:22:00 [facility] Height 2018-09-03 20:22:00 175.26 cm [facility] [place] Weight 2018-09-03 20:22:00 [facility] BMI Calculated 2018-09-03 20:22:00 [facility] [place] Weight 2018-08-27 21:32:00 [facility] [place] BMI Calculated 2018-08-27 21:32:00 [facility] Height 2018-08-27 21:32:00 175.26 cm [facility] Systolic (mm Hg) 2018-08-27 21:32:00 Daren rial [facility]ille[facility] Diastolic (mm Hg) 2018-08-27 21:32:00 Mem orial [place] Respitory Rate 2018-08-27 21:32:00 Memori al [place] Heart Rate 2018-08-27 21:32:00 [facility] [place] Height 2018-05-29 16:23:00 177.8 cm [facility] [place] Systolic (mm Hg) 2018-05-29 16:23:00 Daren rial [place] Diastolic (mm Hg) 2018-05-29 16:23:00 Mem orial [place] Heart Rate 2018-05-29 16:23:00 [facility] [place] Respitory Rate 2018-05-29 16:23:00 Memori al [place] Procedures Procedure Date / Time Performing Clinician Source Performed POCT-GLUCOSE METER 2021-04-11 11:01:00 Zindani, [facility] POCT-GLUCOSE METER 2021-04-11 08:23:00 Mandy [facility] POCT-GLUCOSE METER 2021-04-10 20:17:00 Ednapriya [facility] POCT-GLUCOSE METER 2021-04-10 20:06:00 Ednapriya [facility] POCT-GLUCOSE METER 2021-04-10 16:15:00 Mandy [facility] POCT-GLUCOSE METER 2021-04-10 12:55:00 Mandy [facility] POCT-GLUCOSE METER 2021-04-10 07:25:00 Mandy [facility] POCT-GLUCOSE METER 2021-04-09 20:53:00 Mandy [facility] POCT-GLUCOSE METER 2021-04-09 16:25:00 Mandy [facility] POCT-GLUCOSE METER 2021-04-09 11:59:00 Mandy [facility] CBC W/PLT COUNT & AUTO 2021-04-09 09:51:00 Mandy [facility] CBC W/PLT COUNT & AUTO 2021-04-09 09:51:00 [facility] DI[facility] PHOSPHORUS 2021-04-09 09:49:00 Mandy [facility] MAGNESIUM 2021-04-09 09:49:00 Mandy [facility] CALCIUM, IONIZED 2021-04-09 09:49:00 Mandy [place] [facility] COMPREHENSIVE METABOLIC 2021-04-09 09:49:00 Mandy [facility] POCT-GLUCOSE METER 2021-04-09 08:13:00 Mandy [facility] POCT-GLUCOSE METER 2021-04-08 21:37:00 Mandy [facility] POCT-GLUCOSE METER 2021-04-08 15:42:00 Mandy [facility] ECG 12-LEAD 2021-04-08 15:04:33 Mandy [facility] ECG 12-LEAD 2021-04-08 15:04:33 Unknown, Hl7 Doctor [facility] POCT-GLUCOSE METER 2021-04-08 11:23:00 Mandy [facility] MAGNESIUM 2021-04-08 09:18:00 Mandy [facility] PHOSPHORUS 2021-04-08 09:18:00 Mandy [facility] CALCIUM, IONIZED 2021-04-08 09:18:00 Mandy [facility] CBC W/PLT COUNT & AUTO 2021-04-08 09:18:00 Mandy [facility] COMPREHENSIVE METABOLIC 2021-04-08 09:18:00 Mandy [facility] CBC W/PLT COUNT & AUTO 2021-04-08 09:18:00 [facility]in [facility] DIFFERENTIAL [facility] POCT-GLUCOSE METER 2021-04-08 07:45:00 Mandy [facility] POCT-GLUCOSE METER 2021-04-07 21:22:00 Maxwell [facility] POCT-GLUCOSE METER 2021-04-07 14:40:00 Maxwell [facility] POCT-GLUCOSE METER 2021-04-07 11:51:00 Maxwell [facility] POCT-GLUCOSE METER 2021-04-07 07:49:00 Maxwell [facility] POCT-GLUCOSE METER 2021-04-06 22:32:00 Maxwell [facility] POCT-GLUCOSE METER 2021-04-06 16:11:00 Maxwell [facility] POCT-GLUCOSE METER 2021-04-06 11:24:00 Maxwell [facility] MAGNESIUM 2021-04-06 10:41:00 Mandy [facility] PHOSPHORUS 2021-04-06 10:41:00 [facility] 2021-04-06 10:41:00 [facility]OLIC 2021-04-06 10:41:00 [facility] C-REACTIVE PROTEIN 2021-04-06 10:41:00 Naty Aldridge [facility] POCT-GLUCOSE METER 2021-04-06 07:20:00 ArreolaMyra [facility] POCT-GLUCOSE METER 2021-04-05 16:00:00 Americo Segura [facility] 2D ECHO W/ DOPPLER 2021-04-05 14:21:54 Francisca Ramirez [facility] (CW/PW/COLOR) [facility] B-TYPE NATRIURETIC FACTOR 2021-04-05 13:37:[address] [facility] (BNP) [facility] BLOOD GAS, VENOUS 2021-04-05 13:12:00 Francisca Ramirez [facility] POCT-GLUCOSE METER 2021-04-05 07:45:00 Americo Segura [facility] XR CHEST 1 VIEW PORTABLE / 2021-04-05 05:12:00 Servando Gibbons [place] in [facility] BEDSIDE [facility] MAGNESIUM 2021-04-05 02:34:00 Mandy [facility] PHOSPHORUS 2021-04-05 02:34:00 Mandy [facility] CALCIUM, IONIZED 2021-04-05 02:34[facility] & AUTO 2021-04-05 02:34:00 Mandy [facility] COMPREHENSIVE METABOLIC 2021-04-05 02:34:00 [facility] W/[facility]T [facility] & AUTO 2021-04-05 02:34:00 Mackenzie Mena [facility] VENOUS DOPPLER LEGS 2021-04-05 00:36:[address] [facility] VANCOMYCIN LEVEL, TROUGH 2021-04-04 19:29:00 Luz Madrigal [facility] CALCIUM, IONIZED 2021-04-04 19:29:00 [facility] POCT-GLUCOSE METER 2021-04-04 16:52:00 [facility] CT CHEST FOR PULMONARY 2021-04-04 13:13:00 Boo [facility] EMBOLUS [facility] SPUTUM CULTURE + GRAM STAIN 2021-04-04 12:38:00 Boo [facility] CALCIUM, IONIZED 2021-04-04 12:27:00 Boo [facility] HIGH SENSITIVITY TROPONIN I 2021-04-04 12:23:00 Boo [facility] D-DIMER 2021-04-04 12:23:00 emma [facility] POCT-GLUCOSE METER 2021-04-04 12:06:00 Crestontete Segura [facility] POCT-GLUCOSE METER 2021-04-04 09:48:[address] [facility] CBC W/PLT COUNT & AUTO 2021-04-04 04:32:[address] [facility] COMPREHENSIVE METABOLIC 2021-04-04 04:32:00 Servando Gibbons [facility] MAGNESIUM 2021-04-04 04:32:00 Boo [facility] CBC W/PLT COUNT & AUTO 2021-04-04 04:32:[address] [facility] XR CHEST 1 VIEW PORTABLE / 2021-04-04 04:04:00 Servando Gibbons [facility] POCT-GLUCOSE METER 2021-04-03 21:24:00 Crestonat Colton [facility] POCT-GLUCOSE METER 2021-04-03 16:29:00 C[place], [facility] HIGH SENSITIVITY TROPONIN I 2021-04-03 13:44:00 Mackenzie Mena [facility] POCT-GLUCOSE METER 2021-04-03 12:43:00 [place], [facility] 2D ECHO W/ DOPPLER 2021-04-03 11:51:22 Yaniv [facility] (CW/PW/COLOR) [facility] POCT-GLUCOSE METER 2021-04-03 09:19[facility] TROPONIN I 2021-04-03 08:17:00 Mogran Andersen [facility] COMPREHENSIVE METABOLIC 2021-04-03 04:50:00 Servando Gibbons [facility] HEPATIC FUNCTION PANEL 2021-04-03 04:50:00 Servando Gibbons [facility] CBC W/PLT COUNT & AUTO 2021-04-03 04:17:[address] [facility] CBC W/PLT COUNT & AUTO 2021-04-03 04:17:[address] [facility] XR CHEST 1 VIEW PORTABLE / 2021-04-03 03:30:00 Servando Gibbons in [facility] POCT-GLUCOSE METER 2021-04-02 22:37:[address] [facility] SARS-COV2/RT-PCR ([facility] & REF 2021-04-02 22:16:00 Yaniv [facility] RESPIRATORY PANEL [facility] 2021-04-02 22:16:00 Veronica Purvis [facility] BLOOD CULTURE 2021-04-02 19:06:00 Katrin Peters [facility] LACTIC ACID, VENOUS 2021-04-02 19:04:00 Shai, [facility] HEMOGLOBIN A1C 2021-04-02 19:04:00 Yaniv, [facility] XR CHEST 1 VIEW PORTABLE / 2021-04-02 18:40:00 Shai, Servando Dang [facility] LEGIONELLA URINE ANTIGEN 2021-04-02 18:31:00 Yaniv, [facility] POCT-GLUCOSE METER 2021-04-02 18:26:00 BridgetKatrin [facility] OXYGEN SATURATION, MEASURED 2021-04-02 18:17:00 Shai, [facility] BLOOD CULTURE 2021-04-02 18:16:00 [facility], [facility] PROTHROMBIN TIME/INR 2021-04-02 18:15:00 Shai, [facility] APTT 2021-04-02 18:15:00 Shai, [facility] [facility] FIBRINOGEN 2021-04-02 18:15:00 Shai, [facility] FERRITIN 2021-04-02 18:15:00 Shai, [facility] HIGH SENSITIVITY TROPONIN I 2021-04-02 18:15:00 [facility], [facility] THROMBOELASTOGRAPH (TEG) 2021-04-02 18:15:00 [facility], [facility] C-REACTIVE PROTEIN 2021-04-02 18:15:00 Shai, [facility] MAGNESIUM 2021-04-02 18:15:00 Yaniv, [facility] BLOOD GAS, VENOUS 2021-04-02 18:15:00 Shai, [facility] ECG 12-LEAD 2021-04-02 17:35:16 Unknown, Hl7 [facility] ECG 12-LEAD 2021-04-02 17:35:16 Unknown, Hl7 [facility] ECG 12-LEAD 2021-04-02 17:33:23 Unknown, Hl7 [facility] ECG 12-LEAD 2021-04-02 17:33:23 Unknown, Hl7 Doctor [facility] URINE CULTURE 2021-04-02 06:30:00 Veronica Purvis [facility] URINALYSIS W/ REFLEX URINE 2021-04-02 06:30:00 YanivVeronica Tonya [facility] CULTURE [facility] REPORT OF PROCEDURE - 2021-04-02 00:00:00 Provider, Default [facility] ENDOSCOPY SCAN Scanning [facility] Chemodenervation of one 2018-09-03 23:54:00 Daren lele [place] extremity; 1-4 muscle(s) Plan of Care Planned Activity Planned Date Details Comments Source Future Scheduled Test 2023-04-05 Influenza Vaccine (#1) [facility] 00:00:00 [code = Influenza Medical Ce nter Vaccine (#1)] Future Scheduled Test 2023-04-05 Influenza Vaccine (#1) [facility] 00:00:00 [code = Influenza Medical Ce nter Vaccine (#1)] Future Scheduled Test 2023-04-05 Influenza Vaccine (#1) [facility] 00:00:00 [code = Influenza Medical Ce nter Vaccine (#1)] Future Scheduled Test 2023-04-05 Influenza Vaccine (#1) [facility] 00:00:00 [code = Influenza Medical Ce nter Vaccine (#1)] Future Scheduled Test 2022-08-[address] [facility] 00:00:00 (12+) [code = Medical Center DEPRESSION SCREENING (12+)] Future Scheduled Test 2022-08-05 FALLS RISK SCREENING [facility] 00:00:00 [code = FALLS RISK Medical C enter SCREENING] Future Scheduled Test 2022-08-[address] [facility] 00:00:00 (12+) [code = Medical Center DEPRESSION SCREENING (12+)] Future Scheduled Test 2022-08-05 FALLS RISK SCREENING [facility] 00:00:00 [code = FALLS RISK Medical C enter SCREENING] Future Scheduled Test 2022-08-[address] [facility] 00:00:00 (12+) [code = Medical Center DEPRESSION SCREENING (12+)] Future Scheduled Test 2022-08-05 FALLS RISK SCREENING [facility] 00:00:00 [code = FALLS RISK Medical C enter SCREENING] Future Scheduled Test 2022-08-[address] [facility] 00:00:00 (12+) [...] 00:00:00 (1 of 1 - Medical Center [id number] PCV13) [code = PNEUMOCOCCAL 65+ YRS (1 of 1 - [id number]_[id number] PCV13)] Future Scheduled Test 2015 PNEUMOCOCCAL 65+ YRS [facility] 00:00:00 (1 of 1 - Medical Center [id number] PCV13) [code = PNEUMOCOCCAL 65+ YRS (1 of 1 - [id number] PCV13)] Future Scheduled Test 2015 PNEUMOCOCCAL 65+ [...] YRS (1 - PCV)] Future Scheduled Test 2013-11-04 MEDICARE ANNUAL [facility] [...] ter VACCINE (1)] Future Scheduled Test [address] [facility] 00:00:00 Counseling and Medical Cente r Screening (12+) [code = Tobacco Cessation Counseling and Screening (12+)] Future Scheduled Test [address] [facility] 00:00:00 Counseling and Medical Cente r Screening (12+) [code = Tobacco Cessation Counseling and Screening (12+)] Future Scheduled Test [address] [facility] 00:00:00 Counseling and Medical Cente r Screening (12+) [code = Tobacco Cessation Counseling and Screening (12+)] Future Scheduled Test 1951-01-21 COVID-19 VACCINE (#1) [facility] 00:00:00 [code = COVID-[address] VACCINE (#1)] Future Scheduled Test 1951-01-21 COVID-19 VACCINE (#1) [facility] 00:00:00 [code = COVID-[address] VACCINE (#1)] Future Scheduled Test 1951-01-21 COVID-19 VACCINE (#1) [facility] 00:00:00 [code = COVID-[address] VACCINE (#1)] Future Scheduled Test 1951-01-21 COVID-19 VACCINE (#1) [facility] 00:00:00 [code = COVID-[address] VACCINE (#1)] Future Scheduled Test [address] [facility] 00:00:00 (combo) [code = CT Medical C enter Colonography (combo)] Future Scheduled Test 1950 [facility] malignant neoplasm of Medica l Center colon (procedure) [code = 218586013] Future Scheduled Test 1950 [facility]:00 malignant neoplasm of Medica [facility] Center colon (procedure) [code = 803523008] Future Scheduled Test 1950 [facility] 00:[facility]:00 malignant neoplasm of Medica l Center colon (procedure) [code = 539323373] Future Scheduled Test 1950 [facility] 00:[facility]:00 malignant neoplasm of Medica l Center colon (procedure) [code = 825673962] Future Scheduled Test 1950 Sigmoidoscopy [code = [facility] 00:00:00 Sigmoidoscopy] Medical Cente r Future Scheduled Test 1950 [facility] for [facility] 00:00:00 malignant neoplasm of Medica l Center colon (procedure) [code = 682011068] Future Scheduled Test 1950 [facility] for [facility] 00:00:00 malignant neoplasm of Medica [facility] Center colon (procedure) [code = 799508015] Future Scheduled Test [address] [facility] 00:00:00 (combo) [code = CT Medical C enter Colonography (combo)] Future Scheduled Test 1950 [facility] for [facility] 00:00:00 malignant neoplasm of Medica [facility] Center colon (procedure) [code = 719318561] Future Scheduled Test 1950 [facility] for [facility] 00:00:00 malignant neoplasm of Medica l Center colon (procedure) [code = 687823613] Future Scheduled Test 1950 [facility] for [facility] 00:00:00 malignant neoplasm of Medica [facility] Center colon (procedure) [code = 996380193] Future Scheduled Test 1950 [facility] 00:00:00 malignant neoplasm of Medica l Center colon (procedure) [code = 464629529] Future Scheduled Test 1950 Sigmoidoscopy [code = [facility] 00:00:00 Sigmoidoscopy] Medical Cente r Future Scheduled Test [address] [facility] 00:00:00 (combo) [code = CT Medical C enter Colonography (combo)] Future Scheduled Test 1950 [facility] 00:00:00 malignant neoplasm of Medica l Center colon (procedure) [code = 328738941] Future Scheduled Test 1950 [facility] for [facility] 00:00:00 malignant neoplasm of Medica l Center colon (procedure) [code = 760075607] Future Scheduled Test 1950 [facility] for [facility] 00:00:00 malignant neoplasm of Medica l Center colon (procedure) [code = 458420053] Future Scheduled Test 1950 [facility] for [facility] 00:00:00 malignant neoplasm of Medica l Center colon (procedure) [code = 861760237] Future Scheduled Test 1950 Sigmoidoscopy [code = [facility] 00:00:00 Sigmoidoscopy] Medical Cente r Future Scheduled Test [address] [facility] 00:00:00 (combo) [code = CT Medical C enter Colonography (combo)] Future Scheduled Test 1950 [facility]ening for [facility] 00:00:00 malignant neoplasm of Medica l Center colon (procedure) [code = 475974844] Future Scheduled Test 1950 [facility] for [facility] 00:00:00 malignant neoplasm of Medica l Center colon (procedure) [code = 292862648] Future Scheduled Test 1950 [facility] for [facility] 00:00:00 malignant neoplasm of Medica l Center colon (procedure) [code = 362818758] Future Scheduled Test 1950 [facility] for [facility] 00:00:00 malignant neoplasm of Medica l Center colon (procedure) [code = 728935333] Future Scheduled Test 1950 Sigmoidoscopy [code = [facility] 00:00:00 Sigmoidoscopy] Medical Cente r Instructions [facility] Start End Encounter Admission Attending Care Care Encounter Source Date/Time Date/Time Type Type Clinicians Facility Department ID 2021-04-02 Inpatient ER [facility], [facility] Pulmonology [id number] SLE 16:50:00 KATRIN 2023-05-18 2023-05-18 Outpatient [facility]Tod PRIV PRIV 239 [id number] [facility] 00:00:00 00:00:00 d_J [id number] Medica l 2023-05-18 2023-05-18 Outpatient [facility]Tod PRIV PRIV 239 [id number] [facility] 00:00:00 00:00:00 d_J [id number] Medica l 2023-05-18 2023-05-18 Outpatient [facility]Tod PRIV PRIV 239 [id number] [facility] 00:00:00 00:00:00 d_J [id number] Medica l 2023-05-18 2023-05-18 Outpatient [facility]Tod PRIV PRIV 239 [id number] [facility] 00:00:00 00:00:00 d_J [id number] Medica l 2023-05-18 2023-05-18 Outpatient [facility]Tod PRIV PRIV 239 [id number] [facility] 00:00:00 00:00:00 d_J [id number] Medica l 2023-05-18 2023-05-18 Outpatient [facility]Tod PRIV PRIV 239 [id number] [facility] 00:00:00 00:00:00 d_J [id number] Medica l 2023-05-18 2023-05-18 Outpatient [facility]Tod PRIV PRIV 239 [id number] [facility] 00:00:00 00:00:00 d_J [id number] Medica l 2023-05-09 2023-05-09 Outpatient [facility]Tod PRIV PRIV 239 [id number] [facility] 00:00:00 00:00:00 d_J [id number] Medica l 2023-03-21 2023-03-21 Outpatient [facility]Tod PRIV PRIV 239 [id number] [facility] 00:00:00 00:00:00 d_J [id number] Medica l 2023-03-21 2023-03-21 Outpatient [facility]Tod PRIV PRIV 239 [id number] [facility] 00:00:00 00:00:00 d_J [id number] Medica l 2023-03-21 2023-03-21 Outpatient [facility]Tod PRIV PRIV 239 [id number] [facility] 00:00:00 00:00:00 d_J [id number] Medica l 2023-03-21 2023-03-21 Outpatient [facility]Tod PRIV PRIV 239 [id number] [facility] 00:00:00 00:00:00 d_J [id number] Medica l 2023-03-21 2023-03-21 Outpatient [facility]Tod PRIV PRIV 239 [id number] [facility] 00:00:00 00:00:00 d_J [id number] Medica l 2023-03-21 2023-03-21 Outpatient [facility]Tod PRIV PRIV 239 [id number] [facility] 00:00:00 00:00:00 d_J [id number] Medica l 2023-03-21 2023-03-21 Outpatient [facility]Tod PRIV PRIV 239 [id number] [facility] 00:00:00 00:00:00 d_J [id number] Medica l 2023-03-21 2023-03-21 Outpatient [facility]Tod PRIV PRIV 239 [id number] [facility] 00:00:00 00:00:00 d_J [id number] Medica l 2023-03-21 2023-03-21 Outpatient [facility]Tod PRIV PRIV 239 [id number] [facility] 00:00:00 00:00:00 d_J [id number] Medica l 2023-03-21 2023-03-21 Outpatient [facility]Tod PRIV PRIV 239 [id number] [facility] 00:00:00 00:00:00 d_J [id number] Medica l 2023-03-21 2023-03-21 Outpatient [facility]Tod PRIV PRIV 239 [id number] [facility] 00:00:00 00:00:00 d_J [id number] Medica l 2023-03-08 2023-03-08 Outpatient [facility]Tod PRIV PRIV 239 [id number] [facility] 00:00:00 00:00:00 d_J [id number] Medica l 2023-02-07 2023-02-07 Outpatient [facility]Tod PRIV PRIV 239 [id number] [facility] 00:00:00 00:00:00 d_J [id number] Medica l 2023-01-22 2023-01-22 Outpatient [facility]Tod PRIV PRIV 239 [id number] [facility] 00:00:00 00:00:00 d_J [id number] Medica l 2023-01-22 2023-01-22 Outpatient [facility]Tod PRIV PRIV 239 [id number] [facility] 00:00:00 00:00:00 d_J [id number] Medica l 2023-01-22 2023-01-22 Outpatient [facility]Tod PRIV PRIV 239 [id number] [facility] 00:00:00 00:00:00 d_J [id number] Medica l 2023-01-22 2023-01-22 Outpatient [facility]Tod PRIV PRIV 239 [id number] [facility] 00:00:00 00:00:00 d_J [id number] Medica l 2022-12-30 2022-12-30 Outpatient [facility]Tod PRIV PRIV 239 [id number] [facility] 00:00:00 00:00:00 d_J [id number] Medica l 2022-12-30 2022-12-30 Outpatient [facility]Tod PRIV PRIV 239 [id number] [facility] 00:00:00 00:00:00 d_J [id number] Medica l 2022-11-30 2022-11-30 Outpatient [facility]Tod PRIV PRIV 239 [id number] [facility] 00:00:00 00:00:00 d_J [id number] Medica l 2022-11-30 2022-11-30 Outpatient [facility]Tod PRIV PRIV 239 [id number] [facility] 00:00:00 00:00:00 d_J [id number] Medica l 2022-11-30 2022-11-30 Outpatient [facility]Tod PRIV PRIV 239 [id number] [facility] 00:00:00 00:00:00 d_J [id number] Medica l 2022-11-30 2022-11-30 [facility] [id number] [facility] 00:00:00 00:00:00 RAUL Alonso: Health - Med ical [address] [address] , Ph. 2022-11-27 2022-11-27 Renita Powers [facility] 202 [id number] [facility] 00:00:00 00:00:00 Genaro [facility] - Med ical MD: [address] [address] , Ph. 2022-11-05 2022-11-05 Outpatient [facility]Tod PRIV PRIV 239 [id number] [facility] 00:00:00 00:00:00 d_J [id number] Medica l 2022-11-05 2022-11-05 Outpatient [facility]Tod PRIV PRIV 239 [id number] [facility] 00:00:00 00:00:00 d_J [id number] Medica l 2022-11-05 2022-11-05 Outpatient [facility]Tod PRIV PRIV 239 [id number] [facility] 00:00:00 00:00:00 d_J [id number] Medica l 2022-11-05 2022-11-05 Outpatient [facility]Tod PRIV PRIV 239 [id number] [facility] 00:00:00 00:00:00 d_J [id number] Medica l 2022-11-05 2022-11-05 Outpatient [facility]Tod PRIV PRIV 239 [id number] [facility] 00:00:00 00:00:00 d_J [id number] Medica l 2022-11-02 2022-11-02 Outpatient [facility]Tod PRIV PRIV 239 [id number] [facility] 00:00:00 00:00:00 d_J [id number] Medica l 2022-10-09 2022-10-09 [facility] 307 [facility] 00:00:00 00:00:00 RAUL Alonso: Health - Med ical [address] [address] , Ph. 2022-10-04 2022-10-04 Outpatient [facility]Tod PRIV PRIV 239 [id number] [facility] 00:00:00 00:00:00 d_J [id number] Medica l 2022-10-04 2022-10-04 Outpatient [facility]Tod PRIV PRIV 239 [id number] [facility] 00:00:00 00:00:00 d_J [id number] Medica l 2022-10-01 2022-10-01 Outpatient [facility]Tod PRIV PRIV 239 [id number] [facility] 00:00:00 00:00:00 d_J [id number] Medica l 2022-10-01 2022-10-01 Outpatient [facility]Tod PRIV PRIV 239 [id number] [facility] 00:00:00 00:00:00 d_J [id number] Medica l 2022-09-11 2022-09-11 [facility] [id number] [facility] 00:00:00 00:00:00 RAUL Alonso: Health - Med ical [address] [address] , Ph. 2022-08-24 2022-08-24 [facility] [id number] [facility] 00:00:00 00:00:00 RAUL Alonso: Health - Med ical [address] [address] , Ph. 2022-08-03 2022-08-03 Renitarosalie Powers [facility] 202 [id number] [facility] 00:00:00 00:00:00 Genaro [facility] - Med ical : [address] [address] , Ph. 2022-07-20 2022-07-20 Outpatient [facility]Tod PRIV PRIV 239 [id number] [facility] 00:00:00 00:00:00 d_J [id number] Medica l 2022-07-20 2022-07-20 Outpatient [facility]Tod PRIV PRIV 239 [id number] [facility] 00:00:00 00:00:00 d_J [id number] Medica l 2022-07-20 2022-07-20 Outpatient [facility]Tod PRIV PRIV 239 [id number] [facility] 00:00:00 00:00:00 d_J [id number] Medica l 2022-07-20 2022-07-20 Outpatient [facility]Tod PRIV PRIV 239 [id number] [facility] 00:00:00 00:00:00 d_J [id number] Medica l 2022-07-20 2022-07-20 Outpatient [facility]Tod PRIV PRIV 239 [id number] [facility] 00:00:00 00:00:00 d_J [id number] Medica l 2022-07-20 2022-07-20 Outpatient [facility]Tod PRIV PRIV 239 [id number] [facility] 00:00:00 00:00:00 d_J [id number] Medica l 2022-07-20 2022-07-20 Outpatient [facility]Tod PRIV PRIV 239 [id number] [facility] 00:00:00 00:00:00 d_J [id number] Medica l 2022-07-17 2022-07-17 [facility] 213 [facility] 00:00:00 00:00:00 RAUL Alonso: Health - Med ical [address] [address] , Ph. 2022-06-26 2022-06-26 Rebeka [facility] [id number] [facility] 00:00:00 00:00:00 RAUL Alonso: Health - Med ical [address] [address] , Ph. 2022-06-12 2022-06-12 Rebeka [facility] [id number] [facility] 00:00:00 00:00:00 RAUL Alonso: Health - Med ical [address] [address] , Ph. 2022-05-31 2022-05-31 Outpatient [facility]Tod PRIV PRIV 239 [id number] [facility] 00:00:00 00:00:00 d_J [id number] Medica l 2022-05-31 2022-05-31 Outpatient [facility]Tod PRIV PRIV 239 [id number] [facility] 00:00:00 00:00:00 d_J [id number] Medica l 2022-05-31 2022-05-31 Outpatient [facility]Tod PRIV PRIV 239 [id number] [facility] 00:00:00 00:00:00 d_J [id number] Medica l 2022-05-29 2022-05-29 Outpatient [facility]Tod PRIV PRIV 239 [id number] [facility] 00:00:00 00:00:00 d_J [id number] Medica l 2022-05-15 2022-05-15 Rebeka [facility] [id number] [facility] 00:00:00 00:00:00 RAUL Alonso: Health - Med ical [address] [address] , Ph. 2022-05-01 2022-05-01 [facility] [id number] [facility] 00:00:00 00:00:00 RAUL Alonso: Health - Med ical [address] [address] , Ph. 2022-04-30 2022-04-30 Outpatient [facility]Tod PRIV PRIV 239 [id number] [facility] 00:00:00 00:00:00 d_J [id number] Medica l 2022-03-29 2022-03-29 Renita Powers [facility] 202 [id number] [facility] 00:00:00 00:00:00 Genaro [facility] - Med ical MD: [address] [address] , Ph. 2022-03-29 2022-03-29 [facility] [id number] 00:00:00 00:00:00 Renita Powers [id number] 2022-03-23 2022-03-23 Outpatient [facility]Tod PRIV PRIV 239 [id number] [facility] 00:00:00 00:00:00 d_J [id number] Medica l 2022-03-23 2022-03-23 [facility] [id number] [facility] 00:00:00 00:00:00 RAUL Alonso: Health - Med ical [address] [address] , Ph. 2022-03-23 2022-03-23 Outpatient Gavin [facility] PRIV [id number] 00:00:00 00:00:00 Rebeka [id number] 2022-03-06 2022-03-06 Outpatient [facility]Tod PRIV PRIV 239 [id number] [facility] 00:00:00 00:00:00 d_J [id number] Medica l 2022-02-20 2022-02-20 Outpatient [facility]Tod PRIV PRIV 239 [id number] [facility] 12:09:00 12:09:00 d_J [id number] Medica l 2022-02-13 2022-02-13 Outpatient [facility]Tod PRIV PRIV 239 [id number] [facility] 01:25:00 01:25:00 d_J [id number] Medica l 2022-02-13 2022-02-13 Rebeka [facility] [id number] [facility] 00:00:00 00:00:00 RAUL Alonso: Health - Med ical [address] [address] , Ph. 2022-02-13 2022-02-13 Outpatient Gavin, PRIV PRIV [id number] 00:00:00 00:00:00 Rebeka [id number] 2022-02-06 2022-02-06 Outpatient [facility]Tod PRIV PRIV 239 [id number] [facility] 05:33:00 05:33:00 d_J [id number] Medica l 2022-02-05 2022-02-05 Outpatient [facility]Tod PRIV PRIV 239 [id number] [facility] 10:54:00 10:54:00 d_J [id number] Medica l 2022-02-01 2022-02-01 Outpatient [facility]Tod PRIV PRIV 239 [id number] [facility] 06:32:00 06:32:00 d_J [id number] Medica l 2022-02-01 2022-02-01 Renita Powers [facility] [id number] [facility] 00:00:00 00:00:00 Genaro [facility] - Med icacordell MD: [address] [address] , Ph. 2022-02-01 2022-02-01 Outpatient NUBIA Lam PRIV [id number] 00:00:00 00:00:00 Renita Powers [id number] 2022-01-31 2022-01-31 Outpatient [facility]Tod PRIV PRIV 239 [id number] [facility] 03:03:00 03:03:00 dAlfonso [id number] Medica l 2022-01-23 2022-01-23 Outpatient [facility]Tod PRIV PRIV 239 [id number] [facility] 08:41:00 08:41:00 d_J [id number] Medica l 2022-01-23 2022-01-23 [facility] [id number] [facility] 00:00:00 00:00:00 RAUL Alonso: Health - Med ical [address] [address] , Ph. 2022-01-23 2022-01-23 Outpatient Gavin, PRIV PRIV [id number] 00:00:00 00:00:00 Rebeka [id number] 2022-01-15 2022-01-15 Outpatient [facility]Tod PRIV PRIV 239 [id number] [facility] 09:36:00 09:36:00 d_J [id number] Medica l 2022-01-09 2022-01-09 Outpatient [facility]Tod PRIV PRIV 239 [id number] [facility] 01:32:00 01:32:00 d_J [id number] Medica l 2022-01-09 2022-01-09 Rebe[facility] [id number] [facility] 00:00:00 00:00:00 RAUL Alonso: Health - Med ical [address] [address] , Ph. 2022-01-09 2022-01-09 Outpatient Gavin, PRIV PRIV [id number] 00:00:00 00:00:00 Rebeka [id number] 2022-01-01 2022-01-01 Outpatient [facility]Tod PRIV PRIV 239 [id number] [facility] 10:43:00 10:43:00 d_J [id number] Medica l 2021-12-22 2021-12-22 Outpatient [facility]Tod PRIV PRIV 239 [id number] [facility] 09:18:00 09:18:00 d_J [id number] Medica l 2021-12-22 2021-12-22 Outpatient Gavin, PRIV PRIV [id number] 00:00:00 00:00:00 Rebeka [id number] 2021-12-22 2021-12-22 [facility]be[facility] [id number] [facility] 00:00:00 00:00:00 RAUL Alonso: Health - Med ical [address] [address] , Ph. 2021-12-17 2021-12-17 Outpatient [facility]_Tod PRIV PRIV 239 [id number] [facility] 10:44:00 10:44:00 d_J [id number] Medica l 2021-12-11 2021-12-11 Outpatient [facility]Tod PRIV PRIV 239 [id number] [facility] 10:58:00 10:58:00 d_J [id number] Medica l 2021-12-09 2021-12-09 Outpatient [facility]Tod PRIV PRIV 239 [id number] [facility] 11:41:00 11:41:00 d_J [id number] Medica l 2021-12-08 2021-12-08 Outpatient [facility]Tod PRIV PRIV 239 [id number] [facility] 03:29:00 03:29:00 d_J [id number] Medica l 2021-12-08 2021-12-08 [facility]beka [facility] 506 [facility] 00:00:00 00:00:00 RAUL Alonso: Health - Med ical [address] [address] , Ph. 2021-12-08 2021-12-08 Outpatient Gavin, PRIV PRIV [id number] 00:00:00 00:00:00 Rebeka [id number] 2021-12-06 2021-12-06 Outpatient [facility]Tod PRIV PRIV 239 [id number] [facility] 06:57:00 06:57:00 d_J [id number] Medica l 2021-12-06 2021-12-06 Outpatient Genaro, PRIV PRIV [id number] 00:00:00 00:00:00 Renita Powers [id number] 2021-12-06 2021-12-06 Renita Powers [facility] 04 [facility] 00:00:00 00:00:00 Genaro [facility] - Med ical MD: [address] [address] , Ph. 2021-12-05 2021-12-05 Outpatient [facility]_Tod PRIV PRIV 239 [id number] [facility] 07:35:00 07:35:00 d_J [id number] Medica l 2021-12-03 2021-12-03 Outpatient GC_[facility]_Tod PRIV PRIV [id number] [facility] 10:43:00 10:43:00 d_J [id number] Medica l 2021-12-02 2021-12-02 Outpatient GC_BA[facility]_Tod PRIV PRIV [id number] [facility] 10:44:00 10:44:00 d_J [id number] Medica l 2021-12-01 2021-12-01 Outpatient GC_BA[facility]_Tod PRIV PRIV [id number] [facility] 02:27:00 02:27:00 d_J [id number] Medica l 2021-12-01 2021-12-01 Rebeka [facility] [id number] [facility] 00:00:00 00:00:00 RAUL Alonso: Health - Med ical [address] [address] , Ph. 2021-11-24 2021-11-24 Outpatient GC_BA[facility]_Tod PRIV PRIV [id number] [facility] 05:33:00 05:33:00 d_J [id number] Medica l 2021-11-24 2021-11-24 Outpatient Gavin PRIV PRIV [id number] 00:00:00 00:00:00 Rebeka [id number] 2021-11-24 2021-11-24 Rebeka [facility] 422 [facility] 00:00:00 00:00:00 RAUL Alonso: Health - Med ica [address] [address] , Ph. 2021-11-20 2021-11-20 Outpatient GC_BA[facility]_Tod PRIV PRIV [id number] [facility] 02:39:00 02:39:00 d_J [id number] Medica l 2021-11-16 2021-11-16 Outpatient GC_BAHC_Tod PRIV PRIV [id number] [facility] 12:47:00 12:47:00 d_J [id number] Medica l 2021-11-16 2021-11-16 Outpatient Phan, PRIV PRIV [id number] 00:00:00 00:00:00 Kirstie [id number] Romelia [id number] 2021-11-16 Outpatient Phan, PRIV PRIV [id number] 00:00:00 00:00:00 Kirstie [id number] Romelia [id number] 2021-11-16 Kirstie [facility] 14 [facility] 00:00:00 00:00:00 [facility] - Medic al Sylvester, [facility] [employer] [facility]: [address] [place] [address] , Ph. 2021-11-15 2021-11-15 Outpatient GC_BAHC_Tod PRIV PRIV [id number] [facility] 05:04:00 05:04:00 d_Vicki [id number] Medica l 2021-11-13 2021-11-13 Outpatient GC_JAE_Spa PRIV PRIV [id number] [facility] 05:44:00 05:44:00 Scarlet [id number] Medica l 2021-04-24 2021-04-24 Outpatient KRISHNA SMILEY, SLE [facility] [id number] [facility] 00:00:00 00:00:00 SINJI 2021-04-02 2021-04-11 [facility] Katrin Peters [facility] [id number] [facility] 16:50:00 13:59:00 [facility]-04-[facility] 2021-04-02 [facility] [id number] 00:00:00 00:00:00 [facility] 2019-04-03 2019-04-03 Ambulatory nullFlavo MNA [id number] [facility] 19:00:00 19:00:00 Pre-Reg r Neurology [address] [facility] 2019-04-03 2019-04-03 Ambulatory nullFlavo MNA [id number] [facility] 19:00:00 19:00:00 Pre-Reg r Neurology [address] [facility] 2019-04-03 2019-04-03 Outpatient MHIE DENAIE [id number] [facility] 14:00:00 14:00:00 Anthony landa [place] 2019-04-03 2019-04-03 Outpatient JG Berrios NORMASCHDONIS [id number] 14:00:00 14:00:00 Rishabh Wang 2019-01-01 2019-01-02 Outpatient nullFlavo MNA [id number] [facility] 19:15:00 04:59:59 r Neurology 07 l Nina [place] 2019-01-01 2019-01-02 Outpatient nullFlavo MNA [id number] [facility] 19:15:00 04:59:59 r Neurology 07 l [place] 2019-01-01 2019-01-01 [facility] [id number] 14:15:00 23:59:59 Rishabh 07 Felipe 2019-01-01 2019-01-01 Outpatient MHIE MHIE [id number] [facility] 14:15:00 14:15:00 07 cordell [place] 2018-09-03 2018-09-04 Outpatient nullFlavo MNA [id number] Memoria 20:15:00 05:59:59 r Neurology 06 Nina [place] 2018-09-03 2018-09-04 Outpatient nullFlavo MNA [id number] Memoria 20:15:00 05:59:59 r Neurology 06 Nina [place] 2018-09-03 2018-09-03 [facility] [id number] 14:15:00 23:59:59 Rishabh 06 Fel[place] 2018-09-03 2018-09-03 Outpatient MHIE MHIE [id number] Memoria 14:15:00 14:15:00 06 cordell [place] 2018-08-27 2018-08-28 Outpatient nullFlavo MNA [id number] Memoria 21:15:00 05:59:59 r Neurology 05 cordell Wood [place] 2018-08-27 2018-08-28 Outpatient nullFlavo MNA [id number] Memoria 21:15:00 05:59:59 r Neurology 05 cordell Wood [place] 2018-08-27 2018-08-27 Outpatient DENA BerriosMISCHER MHMISCHER [id number] 15:15:00 23:59:59 Rishabh Batool [place] 2018-08-27 2018-08-27 Outpatient MHIE MHIE [id number] Memoria 15:15:00 15:15:00 05 cordell [place] 2018-08-08 2018-08-10 Phone nullFlavo MNA [id number] Memoria 21:31:00 05:59:59 Message r Neurology 01 cordell Wood [place] 2018-08-08 2018-08-10 Phone nullFlavo MNA [id number] Memoria 21:31:00 05:59:59 Message r Neurology Nina Willem 2018-08-08 2018-08-09 Outpatient MHMISCHER MHMISCHER [id number] 15:31:00 23:59:59 2018-07-18 2018-07-18 Ambulatory nullFlavo MNA [id number] Memoria 16:00:00 16:00:00 Pre-Reg r Neurology 04 l Nina [place] 2018-07-18 2018-07-18 Ambulatory nullFlavo MNA [id number] Memoria 16:00:00 16:00:00 Pre-Reg r Neurology 04 l Nina [place] 2018-07-18 2018-07-18 Outpatient MHIE MHIE [id number] Memoria 10:00:00 10:00:00 04 cordell [place] 2018-07-18 2018-07-18 Outpatient DENA BerriosMISCHER MHMISCHER [id number] 10:00:00 10:00:00 Rishabh 04 Felipe 2018-07-10 2018-07-10 Ambulatory nullFlavo MNA [id number] Memoria 17:00:00 17:00:00 Pre-Reg r Neurology 03 cordell [place] 2018-07-10 2018-07-10 Ambulatory nullFlavo MNA [id number] Memoria 17:00:00 17:00:00 Pre-Reg r Neurology 03 cordell [place] 2018-07-10 2018-07-10 Outpatient MHIE MHIE [id number] Memoria 11:00:00 11:00:00 03 cordell [place] 2018-07-10 2018-07-10 Outpatient CARMEN BerriosSCHER MHMISCHER [id number] 11:00:00 11:00:00 Rishabh 03 Felipe 2018-05-29 2018-05-30 Outpatient nullFlavo MNA [id number] Memoria 16:30:00 04:59:59 r Neurology 02 cordell [place] 2018-05-29 2018-05-30 Outpatient nullFlavo MNA [id number] Memoria 16:30:00 04:59:59 r Neurology 02 cordell Givensann 2018-05-29 2018-05-29 Outpatient CARMEN BerriosSCHER MHMISCHER [id number] 11:30:00 23:59:59 Rishabh 02 Felipe 2018-05-29 2018-05-29 Outpatient MHIE MHIE [id number] Memoria 11:30:00 11:30:00 02 cordell Willem 2018-02-21 2018-02-21 Outpatient MHIE MHIE [id number] Memoria 10:30:00 10:30:00 01 cordell [place] 2018-02-21 2018-02-21 Outpatient OLINDA PRAKASH [id number] Memoria 10:30:00 10:30:00 01 cordell [place] 2018-01-10 2018-01-10 Outpatient OLINDA PRAKASH [id number] Memoria 11:00:00 11:00:00 00 cordell [place] 2018-01-10 2018-01-10 Outpatient OLINDA PRAKASH [id number] Memoria 11:00:00 11:00:00 00 cordell [place] Results Test Description Test Time Test Comments Results Result Comments Source POC-Glucose meter 2021-04-11 11:13:00 Test Item Value Reference Range Interpretation Comme nts POC-Glucose Meter (test code = 227 mg/dL 70-110 H : TESTED AT [facility] [address] [address]) [facility], [facility] 30: Capture Manager/Techni albina ID = [id number] for DUANE ROMERO PERKINS Lab Interpretation (test code = Abnormal 75589-3) [facility] [id number] 11:13:00 Test Item Value Reference Range Interpretation Comments POC-Glucose Meter (test 227 mg/dL 70-110 H : TE STED AT [facility] code = 1538) [address] [place] [address], [facility] 30: Capture Manager/Techni albina ID = [id number] for DUANE ROMERO PERKINS Lab Interpretation (test Abnormal code = 21709-4) [facility] [id number] 11:13:00 Test Item Value Reference Range Interpretation Comments POC-GLUCOSE METER 227 mg/dL 70-110 H : [facility] (test code = [facility], 1538) [address]: Capture Manager/Techni albina ID = [id number] for REJI CAUSEYDERREK MASON POCT-GLUCOSE [id number] 08:35:00 Test Item Value Reference Range Interpretation Comments POC-GLUCOSE METER 131 mg/dL 70-110 H : [facility] (BEAKER) (test code = [facility], 1538) [address]: Capture Manager/Techni albina ID = [id number] for Susannah Ellison POCT-GLUCOSE [id number] 20:28:00 Test Item Value Reference Range Interpretation Comments POC-GLUCOSE METER 217 mg/dL 70-110 H : TESTED A T [facility] 6720 ([facility]) (test code = [facility], 1537) [address]: Capture Manager/Techni albina ID = [id number] for Fulton (contract), Joel da POCT-GLUCOSE [id number] 20:18:00 Test Item Value Reference Range Interpretation Comments POC-GLUCOSE METER 217 mg/dL 70-110 H : Notified RN/MD: ([facility]) (test code = [facility] 1537) [facility] [address]: Capture Manager/Techni albina ID = [id number] for KELSEA SANDOVAL POCT-GLUCOSE [id number] 19:40:00 Test Item Value Reference Range Interpretation Comments POC-GLUCOSE METER 168 mg/dL 70-110 H : TESTED A T [facility] 6720 ([facility]) (test code = [facility], 153) [address]: Capture Manager/Techni albina ID = [id number] for Ga lvan (contract), Amb er POCT-GLUCOSE [id number] 13:09:00 Test Item Value Reference Range Interpretation Comments POC-GLUCOSE METER 189 mg/dL 70-110 H : TESTED A T [facility] 6720 ([facility]) (test code = [facility], 1537) [address]: Capture Manager/Techni albina ID = [id number] for An toine, Hortencia POCT-GLUCOSE [id number] 07:51:00 Test Item Value Reference Range Interpretation Comments POC-GLUCOSE METER 180 mg/dL 70-110 H : TESTED A T [facility] 6720 ([facility]) (test code = [facility], 153) [address]: Capture Manager/Techni albina ID = [id number] for Ga lvan (contract), Amb er POCT-GLUCOSE [id number] 21:12:00 Test Item Value Reference Range Interpretation Comments POC-GLUCOSE METER 168 mg/dL 70-110 H : TESTED A T [facility] 6720 ([facility]) (test code = [facility], 153) [address]: Capture Manager/Techni albina ID = [id number] for MS IBI, MNCEDISI POCT-GLUCOSE [id number] 16:37:00 Test Item Value Reference Range Interpretation Comments POC-GLUCOSE METER 102 mg/dL 70-110 : TESTED A T [facility] 6720 (JEANINNE) (test code = [place]SE [place], 1538) [address]: Capture Manager/Techni albina ID = [id number] for DE NNISJENNIFER POCT-GLUCOSE [id number] 12:13:00 Test Item Value Reference Range Interpretation Comments POC-GLUCOSE METER 147 mg/dL 70-110 H : TESTED A T [facility] 6720 (JEANNINE) (test code = [facility] [place], 1538) [address]: Capture Manager/Techni albina ID = [id number] for DE NNIS, JENNIFER Comprehensive metabolic [id number] 10:38:00 Test Item Value Reference Range Interpretation Comments Protein, Total (test 7.1 See_Comment [Autom ated code = 2885-2) message] The system which generated this result transmit key reference range : 6.0 - 8.3 gm/dL . The reference range was not u sed to interpret th is result as normal/abnormal . Albumin (test code = 3.2 g/dL 3.5-5.0 L 82435-8) Alkaline Phosphatase 58 U/L 40-150 (test code = 6768-6) Total Bilirubin (test 1.4 mg/dL 0.2-1.2 H code = 1975-2) Sodium (test code = 139 meq/L 657-925 8384-2) Potassium (test code 3.9 meq/L 3.5-5.1 = 2823-3) Chloride (test code = 104 meq/L 98-107 5-0) CO2 (test code = 26 meq/L 22-29 8-9) BUN (test code = 14 mg/dL 7-21 3094-0) Creatinine (test code 0.95 mg/dL 0.57-1.25 = 2160-0) Glucose (test code = 149 mg/dL 70-105 H 2345-7) Calcium (test code = 8.4 mg/dL 8.4-10.2 04136-3) AST (test code = 97 U/L 5-34 H 1920-8) ALT (test code = 87 U/L 6-55 H 1742-6) EGFR (test code = 95 mL/min/1.73 [place] [address]-8) NOT ACCURATE CREATININE CLEARANCE IN PREDICTING GLOMERULAR FILTRATION RATE . ESTIMATED GFR I S NOT APPLICABLE FOR DIALYSIS PATIEN TS. REID (test code = REID) Capture Manager ID - AAHAMID Lab Interpretation Abnormal (test code = 11930-3) [facility]21[facility]05 10:38:00 Test Item Value Reference Range Interpretation Comments Magnesium (test code = 1.7 mg/dL 1.6-2.6 44085-2) REID (test code = REID) Capture Manager ID - AAHAMID Lab Interpretation (test Normal code = 33497-2) [facility]2021-09-05 10:38:00 Test Item Value Reference Range Interpretation Comments Phosphorus (test code = 2.6 mg/dL 2.3-4.7 2777-1) REID (test code = REID) Capture Manager ID - AAHAMID Lab Interpretation (test Normal code = 44092-1) [facility]Comprehensive metabolic [id number] 10:38:00 Test Item Value Reference Range Interpretation Comments Protein, Total (test 7.1 See_Comment [Autom ated code = 2885-2) message] The system which generated this result transmit key reference range : 6.0 - 8.3 gm/dL . The reference range was not u sed to interpret th is result as normal/abnormal . Albumin (test code = 3.2 g/dL 3.5-5.0 L 62231-6) Alkaline Phosphatase 58 U/L 40-150 (test code = 6768-6) Total Bilirubin (test 1.4 mg/dL 0.2-1.2 H code = 1974-2) Sodium (test code = 139 meq/L 840-162 0184-2) Potassium (test code 3.9 meq/L 3.5-5.1 = 2823-3) Chloride (test code = 104 meq/L 98-107 5-0) CO2 (test code = 26 meq/L 22-29 2027-9) BUN (test code = 14 mg/dL 7-21 3094-0) Creatinine (test code 0.95 mg/dL 0.57-1.25 = 2160-0) Glucose (test code = 149 mg/dL 70-105 H 2345-7) Calcium (test code = 8.4 mg/dL 8.4-10.2 17501-1) AST (test code = 97 U/L 5-34 H 1920-8) ALT (test code = 87 U/L 6-55 H 1742-6) EGFR (test code = 95 mL/min/1.[place] [address]-0) NOT ACCURATE CREATININE CLEARANCE IN PREDICTING GLOMERULAR FILTRATION RATE . ESTIMATED GFR I S NOT APPLICABLE FOR DIALYSIS PATIEN TS. REID (test code = REID) Capture Manager ID - AAHAMID Lab Interpretation Abnormal (test code = 48754-7) [facility]2021-[facility]-05 10:38:00 Test Item Value Reference Range Interpretation Comments Magnesium (test code = 1.7 mg/dL 1.6-2.6 98050-1) REID (test code = REID) Capture Manager ID - AAHAMID Lab Interpretation (test Normal code = 25741-9) [facility]2021-09-05 10:38:00 Test Item Value Reference Range Interpretation Comments Phosphorus (test code = 2.6 mg/dL 2.3-4.7 2777-1) REID (test code = REID) Capture Manager ID - AAHAMID Lab Interpretation (test Normal code = 65035-9) [facility]PREHENSIVE METABOLIC [id number] 10:38:00 Test Item Value Reference Range Interpretation [...] S NOT APPLICABLE FOR DIALYSIS PATIEN TS. Capture Manager ID - [id number] 10:38:00 Test Item Value Reference Range Interpretation Comments MAGNESIUM (BEAKER) (test code = 1.7 mg/dL 1.6-2.6 627) Capture Manager ID - [id number] 10:38:00 Test Item Value Reference Range Interpretation Comments PHOSPHORUS (BEAKER) (test code = 2.6 mg/dL 2.3-4.7 604) Capture Manager ID - AAHAMIDCBC with platelet count + automated [id number] 10:12:00 Test Item Value Reference Range Interpretation Comments WBC (test code = 6690-2) 7.2 See_Comment [A utomated message] The system [employer] generated this result transmitted ref erence range: 3.5 - 10 .5 K/L. The refe rence range was not u sed to interpret this result as normal/abnor mal. RBC (test code = 789-8) 4.39 See_Comment L [Au tomated message] The system [employer] generated this result transmitted ref erence range: 4.63 - 6 .08 M/L. The refe rence range was not u sed to interpret this result as normal/abnor mal. MCHC (test code = 786-4) 30.1 See_Comment L [A utomated message] The system [employer] generated this result transmitted ref erence range: [...] See_Comment [Aut omated message] 777-3) The system [employer] generated this result transmitted ref erence range: 150 - 45 0 K/CU MM. The referen ce range was not u sed to interpret this result as normal/abnor mal. MPV (test code = 10.4 fL 9.4-12.4 99921-3) nRBC (test code = 413) 0 See_Comment [Aut omated message] The system [employer] generated this result transmitted ref erence range: [...] See_Comment [Aut omated message] 670) The system [employer] generated this result transmitted ref erence range: 1.78 - 5 .38 K/L. The refe rence range was not u sed to interpret this result as normal/abnor mal. # Lymphs (test code = 1.65 See_Comment [Auto mated message] 414) The system [employer] generated this result transmitted ref erence range: 1.32 - 3 .57 K/L. The refe rence range was not u sed to interpret this result as normal/abnor mal. # Monos (test code = 0.47 See_Comment [Autom ated message] 415) The system [employer] generated this result transmitted ref erence range: 0.30 - 0 .82 K/L. The refe rence range was not u sed to interpret this result as normal/abnor mal. # Eos (test code = 416) 0.20 See_Comment [Au tomated message] The system [employer] generated this result transmitted ref erence range: 0.04 - 0 .54 K/L. The refe rence range was not u sed to interpret this result as normal/abnor mal. # Baso (test code = 417) 0.02 See_Comment [A utomated message] The system [employer] generated this result transmitted ref erence range: 0.01 - 0 .08 K/L. The refe rence range was not u sed to interpret this result as normal/abnor mal. Immature 2 % 0-1 H Granulocytes-Relative (test code = 2801) Lab Interpretation (test Abnormal code = 11808-8) [facility] with platelet count + automated [id number] 10:12:00 Test Item Value Reference Range Interpretation Comments WBC (test code = 6690-2) 7.2 See_Comment [A utomated message] The system [employer] generated this result transmitted ref erence range: 3.5 - 10 .5 K/L. The refe rence range was not u sed to interpret this result as normal/abnor mal. RBC (test code = 789-8) 4.39 See_Comment L [Au tomated message] The system [employer] generated this result transmitted ref erence range: 4.63 - 6 .08 M/L. The refe rence range was not u sed to interpret this result as normal/abnor mal. MCHC (test code = 786-4) 30.1 See_Comment L [A utomated message] The system [employer] generated this result transmitted ref erence range: [...] See_Comment [Aut omated message] 777-3) The system [employer] generated this result transmitted ref erence range: 150 - 45 0 K/CU MM. The referen ce range was not u sed to interpret this result as normal/abnor mal. MPV (test code = 10.4 fL 9.4-12.4 22831-7) nRBC (test code = 413) 0 See_Comment [Aut omated message] The system [employer] generated this result transmitted ref erence range: [...] See_Comment [Aut omated message] 670) The system [employer] generated this result transmitted ref erence range: 1.78 - 5 .38 K/L. The refe rence range was not u sed to interpret this result as normal/abnor mal. # Lymphs (test code = 1.65 See_Comment [Auto mated message] 414) The system [employer] generated this result transmitted ref erence range: 1.32 - 3 .57 K/L. The refe rence range was not u sed to interpret this result as normal/abnor mal. # Monos (test code = 0.47 See_Comment [Autom ated message] 415) The system [employer] generated this result transmitted ref erence range: 0.30 - 0 .82 K/L. The refe rence range was not u sed to interpret this result as normal/abnor mal. # Eos (test code = 416) 0.20 See_Comment [Au tomated message] The system [employer] generated this result transmitted ref erence range: 0.04 - 0 .54 K/L. The refe rence range was not u sed to interpret this result as normal/abnor mal. # Baso (test code = 417) 0.02 See_Comment [A utomated message] The system [employer] generated this result transmitted ref erence range: 0.01 - 0 .08 K/L. The refe rence range was not u sed to interpret this result as normal/abnor mal. Immature 2 % 0-1 H Granulocytes-Relative (test code = 2801) Lab Interpretation (test Abnormal code = 19365-2) [facility] W/PLT COUNT & AUTO [id number] 10:12:00 Test Item Value Reference Range Interpretation [...] PERCENT (BEAKER) (test code = 2801) Calcium, [id number] 10:05:00 Test Item Value Reference Range Interpretation Comments Calcium, Ion (test code = 1993-10) 1.08 mmol/L 1.12-1.27 L pH, Blood (test code = 29433-0) 7.48 Lab Interpretation (test code = Abnormal 17344-5) [facility], [id number] 10:05:00 Test Item Value Reference Range Interpretation Comments Calcium, Ion (test code = 1993-10) 1.08 mmol/L 1.12-1.27 L pH, Blood (test code = 39224-1) 7.48 Lab Interpretation (test code = Abnormal 48249-0) [facility]CI[facility], [id number] 10:05:00 Test Item Value Reference Range Interpretation Comments CALCIUM IONIZED (BEAKER) (test 1.08 mmol/L 1.12-1.27 L code = 698) PH, BLOOD (BEAKER) (test code = 7.48 1810) POCT-GLUCOSE [id number] 08:29:00 Test Item Value Reference Range Interpretation Comments POC-GLUCOSE METER 124 mg/dL 70-110 H : TESTED A T [facility] 6720 (BEAKER) (test code = [place], 1538) [address]: Capture Manager/Techni albina ID = [id number] for JENNIFER ALEGRIA POCT-GLUCOSE [id number] 21:52:00 Test Item Value Reference Range Interpretation Comments POC-GLUCOSE METER 194 mg/dL 70-110 H : TESTED A T [facility] 6720 (BEAKER) (test code = [place], 1538) [address]: Capture Manager/Techni albina ID = [id number] for Mary Orellana POCT-GLUCOSE [id number] 15:53:00 Test Item Value Reference Range Interpretation Comments POC-GLUCOSE METER 121 mg/dL 70-110 H : TESTED A T [facility] 6720 (BEAKER) (test code [facility], = 1538) [address]: Capture Manager/Techni albina ID = [id number] for Sakina Nichols, Gene sis POCT-GLUCOSE [id number] 11:35:00 Test Item Value Reference Range Interpretation Comments POC-GLUCOSE METER 171 mg/dL 70-110 H : TESTED A T [facility] 6720 (BEAKER) (test code [facility], = 1538) [address]: Capture Manager/Techni albina ID = [id number] for Sakina Nichols, Gene sis COMPREHENSIVE METABOLIC [id number] 10:13:00 Test Item Value Reference Range Interpretation [...] S NOT APPLICABLE FOR DIALYSIS PATIEN TS. Capture Manager ID - BRYN [id number] 10:13:00 Test Item Value Reference Range Interpretation Comments MAGNESIUM (BEAKER) (test code = 1.8 mg/dL 1.6-2.6 627) Capture Manager ID - BRYN [id number] 10:13:00 Test Item Value Reference Range Interpretation Comments PHOSPHORUS (BEAKER) (test code = 3.0 mg/dL 2.3-4.7 604) Capture Manager ID - BRYN MCALCIUM, [id number] 09:35:00 Test Item Value Reference Range Interpretation Comments CALCIUM IONIZED (BEAKER) (test 1.18 mmol/L 1.12-1.27 code = 698) PH, BLOOD (BEAKER) (test code = 7.37 1810) CBC W/PLT COUNT & AUTO [id number] 09:29:00 Test Item Value Reference Range Interpretation [...] PERCENT (BEAKER) (test code = 2801) POCT-GLUCOSE [id number] 07:56:00 Test Item Value Reference Range Interpretation Comments POC-GLUCOSE METER 167 mg/dL 70-110 H : TESTED A T [facility] 6720 (BEAKER) (test code [facility], = 1538) [address]686: Capture Manager/Techni albina ID = [id number] for Yusuf Pepe POCT-GLUCOSE [id number] 21:38:00 Test Item Value Reference Range Interpretation Comments POC-GLUCOSE METER 108 mg/dL 70-110 : TESTED A T [facility] 6720 (BEAKER) ([facility], 1538) [address]: Capture Manager/Techni albina ID = [id number] for Mary Orellana Blood Culture - Routine (Right Venipuncture)2021-04-07 21:00:00 Test Item Value Reference Range Interpretation Comments Result (test code = No growth in 5 days 6463-4) [facility] - [facility] (Right Venipuncture) 2021-04-07 21:00:00 Test Item Value Reference Range Interpretation Comments Result (test code = No growth in 5 days 6463-4) [facility]BLOOD [id number] 21:00:00 Test Item Value Reference Range Interpretation Comments CULTURE (BEAKER) (test No growth in 5 days code = 1095) BLOOD [id number] 20:01:00 Test Item Value Reference Range Interpretation Comments CULTURE (BEAKER) (test No growth in 5 days code = 1095) POCT-GLUCOSE [id number] 14:51:00 Test Item Value Reference Range Interpretation Comments POC-GLUCOSE METER 118 mg/dL 70-110 H : TESTED A T [facility] 6720 (BEAKER) (test code = [facility], 1538) 20[address]: Capture Manager/Techni albina ID = [id number] for Hi lton (contract), Vannessa shaan POCT-GLUCOSE [id number] 12:02:00 Test Item Value Reference Range Interpretation Comments POC-GLUCOSE METER 173 mg/dL 70-110 H : TESTED A T [facility] 6720 (BEAKER) (test code = [facility], 1538) [address]: Capture Manager/Techni albina ID = [id number] for Wa lton (contract), Vannessa shaan POCT-GLUCOSE [id number] 08:00:00 Test Item Value Reference Range Interpretation Comments POC-GLUCOSE METER 123 mg/dL 70-110 H : TESTED A T [facility] 6720 (BEAKER) (test code = [facility], 1538) 193[address]: Capture Manager/Techni albina ID = [id number] for [place] l[place] (contract), Vannessa shaan POCT-GLUCOSE [id number] 22:45:00 Test Item Value Reference Range Interpretation Comments POC-GLUCOSE METER 129 mg/dL 70-110 H : TESTED A T [facility] 6720 (BEAKER) (test code = [facility], 1538) [address]87[address]: Capture Manager/Techni albina ID = [id number] for MS IBI, LUCEDISI POCT-GLUCOSE [id number] 16:24:00 Test Item Value Reference Range Interpretation Comments POC-GLUCOSE METER 153 mg/dL 70-110 H : TESTED A T [facility] 6720 (BEAKER) (test code = JOSE Howell [facility], 1538) [address]: Capture Manager/Techni albina ID = [id number] for LENA VELA POCT-GLUCOSE [id number] 11:37:00 Test Item Value Reference Range Interpretation Comments POC-GLUCOSE METER 200 mg/dL 70-110 H : TESTED A T [facility] 6720 (BEAKER) (test code = JOSE Howell [facility], 1538) 7[address]: Capture Manager/Techni albina ID = [id number] for LENA VELA C-Reactive [id number] 11:19:00 Test Item Value Reference Range Interpretation Comments CRP (test code = 676) 1.98 mg/dL 0.00-0.50 H REID (test code = REID) Capture Manager ID - AAHAMID Lab Interpretation (test Abnormal code = 62677-1) [facility] [id number] 11:19:00 Test Item Value Reference Range Interpretation Comments CRP (test code = 676) 1.98 mg/dL 0.00-0.50 H REID (test code = REID) Capture Manager ID - AAHAMID Lab Interpretation (test Abnormal code = 76177-9) [facility]COMPREH[facility] METABOLIC [id number] 11:19:00 Test Item Value Reference Range Interpretation [...] S NOT APPLICABLE FOR DIALYSIS PATIEN TS. Capture Manager ID - [id number] 11:19:00 Test Item Value Reference Range Interpretation Comments MAGNESIUM (BEAKER) (test code = 1.9 mg/dL 1.6-2.6 627) Capture Manager ID - [id number] 11:19:00 Test Item Value Reference Range Interpretation Comments PHOSPHORUS (BEAKER) (test code = 2.1 mg/dL 2.3-4.7 L 604) Capture Manager ID - AAHAMIDC-REACTIVE [id number] 11:19:00 Test Item Value Reference Range Interpretation Comments C-REACTIVE PROTEIN (BEAKER) (test 1.98 mg/dL 0.00-0.50 H code = 676) Capture Manager ID - AAHAMIDCALCIUM, [id number] 11:08:00 Test Item Value Reference Range Interpretation Comments CALCIUM IONIZED (BEAKER) (test 1.14 mmol/L 1.12-1.27 code = 698) PH, BLOOD (BEAKER) (test code = 7.41 1810) POCT-GLUCOSE [id number] 07:37:00 Test Item Value Reference Range Interpretation Comments POC-GLUCOSE METER 148 mg/dL 70-110 H : [facility] (BEAKER) (test code = [place]SE [place], 1538) [address]: Capture Manager/Techni albina ID = [id number] for LE IJA, AURA 2D Echo W/Doppler(CW/PW/Color)2021-04-05 18:45:00Ejection FractionSLEH ECHO HEARTLAB [facility] W/Doppler(CW/PW/Color)2021-04-05 18:45:00Ejection FractionSLEH ECHO HEARTLAB [facility]SE [id number] 16:20:00 Test Item Value Reference Range Interpretation Comments POC-GLUCOSE METER 253 mg/dL 70-110 H : Notified RN/MD: (BEAKER) (test code = TESTED AT [facility] 7050 4613) [facility], [address]: Capture Manager/Techni albina ID = [id number] for Tesfaye anthony (contract)Cricket B-type Natriuretic Factor (BNP)2021-04-05 14:23:00 Test Item Value Reference Range Interpretation Comments BNP (test code = 06704-3) 28 pg/mL 0-100 REID (test code = REID) Capture Manager ID - SHANAE Lab Interpretation (test Normal code = 59112-9) [facility] (BNP[facility]2021-04-05 14:23:00 Test Item Value Reference Range Interpretation Comments BNP (test code = 69778-1) 28 pg/mL 0-100 REID (test code = REID) Capture Manager ID - SHANAE Lab Interpretation (test Normal code = 23686-3) [facility]-TYPE NATRIURETIC FACTOR (BNP)2021-04-05 14:23:00 Test Item Value Reference Range Interpretation Comments B-TYPE NATRIURETIC PEPTIDE (BEAKER) 28 pg/mL 0-100 (test code = 700) Capture Manager ID - EMERSONBlood gas, [id number] 13:24:00 Test Item Value Reference Range Interpretation Comments pH, Jean (test code = 7.40 7.32-7.42 2746-6) pCO2, Jean (test code = 47 See_Comment [Aut omated message] 492) The system [employer] generated this result transmit key reference range : 41 - 51 mm Hg. The reference range was not used to interpret this result as normal/abnormal . pO2, Jean (test code = 72 See_Comment H [Auto mated message] 2705-2) The system [employer] generated this result transmit key reference range : 25 - 40 mm Hg. The reference range was not used to interpret this result as normal/abnormal . O2 Sat, Jean (test code 94.6 % 40.0-70.0 H = 2711-0) HCO3, Jean (test code = 28 mmol/L 21-29 90983-2) Base Excess, Jean (test 2.5 mmol/L -2.0-3.0 code = 1927-3) Patient Temperature 36.7 (test code = 8310-5) FIO2 (test code = 1819) 100 Lab Interpretation Abnormal (test code = 46695-6) [facility] [id number] 13:24:00 Test Item Value Reference Range Interpretation Comments pH, Jean (test code = 7.40 7.32-7.42 2746-6) pCO2, Jean (test code = 47 See_Comment [Aut omated message] 755) The system [employer] generated this result transmit key reference range : 41 - 51 mm Hg. The reference range was not used to interpret this result as normal/abnormal . pO2, Jean (test code = 72 See_Comment H [Auto mated message] 2705-2) The system [employer] generated this result transmit key reference range : 25 - 40 mm Hg. The reference range was not used to interpret this result as normal/abnormal . O2 Sat, Jean (test code 94.6 % 40.0-70.0 H = 2711-0) HCO3, Jean (test code = 28 mmol/L 21-29 54161-8) Base Excess, Jean (test 2.5 mmol/L -2.0-3.0 code = 1927-3) Patient Temperature 36.7 (test code = 8310-5) FIO2 (test code = 1819) 100 Lab Interpretation Abnormal (test code = 34362-1) [facility] GAS, [id number] 13:24:00 Test Item Value Reference Range Interpretation [...] (BEAKER) (test code = 1819) 100.0 Urine [id number] 11:17:00 Test Item Value Reference Range Interpretation Comments Result (test code = 6463-4) No growth REID (test code = REID) [facility]ysUrine [id number] 11:17:00 Test Item Value Reference Range Interpretation Comments Result (test code = 6463-4) No growth REID (test code = REID) [facility]ysVenous doppler legs [id number] 08:23:57 Ejection FractionSLEH ECHO HEARTLAB [facility] Venous doppler legs [id number] 08:23:57Ejection FractionSLEH ECHO HEARTLAB [facility] HospitalPO[facility] [id number] 08:08:00 Test Item Value Reference Range Interpretation Comments POC-GLUCOSE METER 206 mg/dL 70-110 H : Notified RN/MD: (JEANNINE) (test code = TESTED AT [facility] 6720 1538) [facility], [address]: Capture Manager/Techni albina ID = [id number] for Tesfaye anthony (contract)Cricket RAD, CHEST, 1 VIEW, NON [id number] 07:43:00Reason for exam:- >cracklesShould this be performed at the bedside?->Yes [facility] CALLAWAYCOLM : 1950 Sex: MFINAL REPORT RAD, CHEST, 1 VIEW, NON DEPT INDICATION: crackles COMPARISON: Prior day's exam FINDINGS: Portable frontal view of the chest. IMPRESSION: Support Lines: None Lungs and pleura: Worsening interstitial edema. Small left effusion. No pneumothorax.Heart and mediastinum: Stable contours. Additional findings: None. Signed: JR Gutierres Robert MDReport Verified Date/Time: 04/05/2021 07:43:47 Reading Location: [facility] Radiology Reading Room REHENSIVE METABOLIC [id number] 03:34:00 Test Item Value Reference Range Interpretation [...] S NOT APPLICABLE FOR DIALYSIS PATIEN TS. Capture Manager ID - CARA [id number] 03:34:00 Test Item Value Reference Range Interpretation Comments MAGNESIUM (BEAKER) (test code = 1.8 mg/dL 1.6-2.6 627) Capture Manager ID - CARA [id number] 03:34:00 Test Item Value Reference Range Interpretation Comments PHOSPHORUS (BEAKER) (test code = 2.1 mg/dL 2.3-4.7 L 604) Capture Manager ID - CARA LCALCIUM, [id number] 03:21:00 Test Item Value Reference Range Interpretation Comments CALCIUM IONIZED (BEAKER) (test 1.10 mmol/L 1.12-1.27 L code = 698) PH, BLOOD (BEAKER) (test code = 7.35 1810) CBC W/PLT COUNT & AUTO [id number] 03:14:00 Test Item Value Reference Range Interpretation [...] (BEAKER) (test code = 2801) Vancomycin level, [id number] 20:11:00 Test Item Value Reference Range Interpretation Comments Vancomycin Tr (test code = 9.4 ug/mL 10.0-20.0 L 4092-3) REID (test code = REID) Capture Manager ID - BS Lab Interpretation (test Abnormal code = 21722-9) [facility]ysVancomycin level, [id number] 20:11:00 Test Item Value Reference Range Interpretation Comments Vancomycin Tr (test code = 9.4 ug/mL 10.0-20.0 L 4092-3) REID (test code = REID) Capture Manager ID - BS Lab Interpretation (test Abnormal code = 74729-9) [facility]ysVANCOMYCIN LEVEL, [id number] 20:11:00 Test Item Value Reference Range Interpretation Comments VANCOMYCIN TROUGH (BEAKER) (test 9.4 ug/mL 10.0-20.0 L code = 522) Capture Manager ID - BSCALCIUM, [id number] 19:47:00 Test Item Value Reference Range Interpretation Comments CALCIUM IONIZED (BEAKER) (test 1.10 mmol/L 1.12-1.27 L code = 698) PH, BLOOD (BEAKER) (test code = 7.35 1810) Sputum Culture + Gram [id number] 18:50:00 Test Item Value Reference Range Interpretation Comments Result (test code = Oropharyngeal 6463-4) contamination, specimen rejected. Recollect requested. Gram Stain Result <1+ gram positive cocci in (test code = 1123) [facility] Gram [id number] 18:50:00 Test Item Value Reference Range Interpretation Comments Result (test code = Oropharyngeal 6463-4) contamination, specimen rejected. Recollect requested. Gram Stain Result <1+ gram positive cocci in (test code = 1123) [facility]CenterPUTUM CULTURE + GRAM [id number] 18:50:00 Test Item Value Reference Range Interpretation Comments CULTURE (BEAKER) Oropharyngeal (test code = 1095) contamination, specimen rejected. Recollect requested. GRAM STAIN RESULT <1+ WBCs (BEAKER) (test code = 1123) GRAM STAIN RESULT 10-15 epithelial cells (BEAKER) (test code = 86892) GRAM STAIN RESULT <1+ gram positive cocci (BEAKER) (test code in chains = 93215) GRAM STAIN RESULT <1+ gram positive cocci (BEAKER) (test code in clusters = 437610) POCT-GLUCOSE [id number] 17:06:00 Test Item Value Reference Range Interpretation Comments POC-GLUCOSE METER 167 mg/dL 70-110 H : Notified RN/MD: (BEAKER) (test code = TESTED AT [facility] 6720 1538) [facility] [address]: Capture Manager/Techni albina ID = [id number] for [facility] (contract), [facility] CT, CHEST WITH IV CONTRAST- PE TEST [id number] 14:12:00Unlisted Reason for Exam - Click Yes and Enter Reason Below->No [facility] : 1950 Sex: [...] 3.3 cm in diameter. No definite filling defectswithin the pulmonary arteries, however evaluation of segmental/subsegmental branches in the lung base s is limited by motion artifact. LUNGS AND AIRWAYS: Patent central airways. Focal consolidative opacity in the left upper lobe. Patchy groundglass opacities scattered in both lungs. Mild dependent atelectasis in the lower lobes. PLEURA: Pleural spaces are clear. HEART AND MEDIASTINUM: Visualized thyroid gland is normal. Mildly prominent right hilar [...] suspicious for pneumonia. Hepatic steatosis. Signed: Narinder Erazo [facility] Verified Date/Time: 04/04/2021 14:12:15 Reading Location: [facility] B1 C013Y CT Body Reading Room High Sensitivity Troponin I ([facility]aj Only)2021-04-04 13:28:00 Test Item Value Reference Range Interpretation Comments Troponin I HS (test 31 pg/ml See_Comment [Automa key code = 51068-8) message] The system which generated this result transmitted reference range : <=35. The reference range was not used to interpret this result as normal/abnormal . REID (test code = Capture Manager ID - REID) [employer] CRYPTOLOGIC TECHNICIAN STAT High Sensitivity Troponin-I results should be used in conjunction with other diagnostic information such as ECG, clinical observations and information, and patient symptoms to aid in the diagnosis of NV. Lab Interpretation Normal (test code = 11910-2) [facility] Sensitivity Troponin I ([facility] Only) 2021-04-04 13:28:00 Test Item Value Reference Range Interpretation Comments Troponin I HS (test 31 pg/ml See_Comment [Automa key code = 74947-0) message] The system which generated this result transmitted reference range : <=35. The reference range was not used to interpret this result as normal/abnormal . RIED (test code = Capture Manager ID - REID) [employer] CRYPTOLOGIC TECHNICIAN STAT High Sensitivity Troponin-I results should be used in conjunction with other diagnostic information such as ECG, clinical observations and information, and patient symptoms to aid in the diagnosis of NV. Lab Interpretation Normal (test code = 95810-0) [facility]ysHIGH SENSITIVITY TROPONIN [id number] 13:28:00 Test Item Value Reference Range Interpretation Comments HIGH SENSITIVITY 31 pg/ml See_Comment [Automated message] TROPONIN I (test code = The system which 3052656) generated this result transmitted ref erence range: <=35. Th e reference range was not used to int erpret this result as normal/abnormal . Capture Manager ID - CARA Zealifyhe CRYPTOLOGIC TECHNICIAN STAT High Sensitivity Troponin-I results should be used in conjunction with other diagnostic information such as ECG, clinical observations and information, and patient symptoms to aid in the diagnosis of NV.[id number] 13:05:00 Test Item Value Reference Range Interpretation Comments D-Dimer, Quant (test 0.55 See_Comment H [Autom ated code = 33997-9) message] The system which generated this result [...] range. Lab Interpretation Abnormal (test code = 53306-5) [facility]-[id number] 13:05:00 Test Item Value Reference Range Interpretation Comments D-Dimer, Quant (test 0.55 See_Comment H [Autom ated code = 64541-2) message] The system which generated this result [...] range. Lab Interpretation Abnormal (test code = 06147-2) [facility]ysD-[id number] 13:05:00 Test Item Value Reference Range Interpretation [...] of thrombosis is within 95-100% range. CALCIUM, [id number] 12:47:00 Test Item Value Reference Range Interpretation Comments CALCIUM IONIZED (BEAKER) (test code < mmol/L 1.12-1.27 LL = 698) PH, BLOOD (BEAKER) (test code = 7.22 1810) POCT-GLUCOSE [id number] 12:24:00 Test Item Value Reference Range Interpretation Comments POC-GLUCOSE METER 211 mg/dL 70-110 H : Notified RN/MD: (BEAKER) (test code = TESTED AT [facility] 6720 1538) [facility], [address]: Capture Manager/Techni albina ID = [id number] for Don chapa (contract), [place] POCT-GLUCOSE [id number] 11:03:00 Test Item Value Reference Range Interpretation Comments POC-GLUCOSE METER 218 mg/dL 70-110 H : TESTED A T [facility] 6720 ([facility] (test code = [facility] How[facility], 1538) [address]: Capture Manager/Techni albina ID = [id number] for Ba nks (agency), Ivana [id number] 10:30:00 Test Item Value Reference Range Interpretation Comments MAGNESIUM (BEAKER) 2.2 mg/dL 1.6-2.6 Specimen slightly (test code = 627) hemolyzed Capture Manager ID - BRYN MOperator ID - CARA LRAD, CHEST, 1 VIEW, NON [id number] 07:38:00Reason for exam:->cracklesShould this be performed at the bedside?->Yes[facility] : 1950 Sex: [...] MDReport Verified Date/Time: 04/04/2021 07:38:02 Reading Location: [facility] Radiology Reading Room COMPREHENSIVE METABOLIC PANEL 2021-04-04 [...] S NOT APPLICABLE FOR DIALYSIS PATIEN TS. Capture Manager ID - BRYN MCBC W/PLT COUNT & AUTO [id number] 04:51:00 Test Item Value Reference Range Interpretation [...] PERCENT (BEAKER) (test code = 2801) POCT-GLUCOSE [id number] 21:40:00 Test Item Value Reference Range Interpretation Comments POC-GLUCOSE METER 222 mg/dL 70-110 H : TESTED A T [facility] 6720 (BEAKER) (test code [facility], = 1538) [address]: Capture Manager/Techni albina ID = [id number] for Perico hayes (agency)Maryjane HIGH SENSITIVITY TROPONIN [id number] 17:18:00 Test Item Value Reference Range Interpretation Comments HIGH SENSITIVITY 44 pg/ml See_Comment H [Automated message] TROPONIN I (test code = The system which 4166517) generated this result transmitted ref erence range: <=35. Th e reference range was not used to int erpret this result as normal/abnormal . Capture Manager ID - DBThe CRYPTOLOGIC TECHNICIAN STAT High Sensitivity Troponin-I results should be used in conjunctionwith other diagnostic information such as ECG, clinical observations and information, and patient symptoms to aid in the diagnosis of NV.POCT-GLUCOSE [id number] 16:41:00 Test Item Value Reference Range Interpretation Comments POC-GLUCOSE METER 230 mg/dL 70-110 H : TESTED A T [facility] 6720 (BEAKER) (test code = [facility], 1538) [address]: Capture Manager/Techni albina ID = [id number] for Elsy Nicholas 2D Echo W/Doppler(CW/PW/Color)2021-04-03 16:17:55Ejection FractionSLEH ECHO HEARTLAB MKCKESSYOLANDA [facility] Echo W/Doppler(CW/PW/Color)2021-04-03 16:17:55Ejection FractionSLEH ECHO HEARTLAB MKCKESSON CPACSCHI [facility] CenterPO[facility] [id number] 13:56:00 Test Item Value Reference Range Interpretation Comments POC-GLUCOSE METER 263 mg/dL 70-110 H : TESTED A T [facility] 6720 (BEAKER) (test code = JOSE Howell [facility], 1538) [address]: Capture Manager/Techni albina ID = [id number] for Elsy Nicholas POCT-GLUCOSE [id number] 09:34:00 Test Item Value Reference Range Interpretation Comments POC-GLUCOSE METER 276 mg/dL 70-110 H : TESTED A T [facility] 6720 (BEAKER) (test code = JOSE Howell [facility], 1538) [address]: Capture Manager/Techni albina ID = [id number] for Elsy Nicholas HIGH SENSITIVITY TROPONIN [id number] 09:02:00 Test Item Value Reference Range Interpretation Comments HIGH SENSITIVITY 50 pg/ml See_Comment H [Automated message] TROPONIN I (test code = The system which 8705299) generated this result transmitted ref erence range: <=35. Th e reference range was not used to int erpret this result as normal/abnormal . Capture Manager ID - BRYN MThe CRYPTOLOGIC TECHNICIAN STAT High Sensitivity Troponin-I results should be used in conjunction with other diagnostic information such as ECG, clinical observations and information, and patient symptoms to aid in the diagnosis of NV.Hemoglobin [id number] 08:17:00 Test Item Value Reference Range Interpretation Comments Hemoglobin A1C (test code = 4548-4) 7.2 % 4.3-6.1 H Lab Interpretation (test code = Abnormal 60893-2) [facility]Hemoglobin [id number] 08:17:00 Test Item Value Reference Range Interpretation Comments Hemoglobin A1C (test code = 4548-4) 7.2 % 4.3-6.1 H Lab Interpretation (test code = Abnormal 38324-9) [facility]ysHEMOGLOBIN [id number] 08:17:00 Test Item Value Reference Range Interpretation Comments HEMOGLOBIN A1C (BEAKER) (test code = 7.2 % 4.3-6.1 H 368) RAD, CHEST, 1 VIEW, NON [id number] 08:00:00Reason for exam:- >cracklesShould this be performed at the bedside?->Yes [facility] : 1950 Sex: [...] MDReport Verified Date/Time: 04/03/2021 08:00:07 Reading Location: [facility] Radiology Reading Room Hepatic function panel 2021-04-03 06:39:00 Test Item Value Reference Range Interpretation Comments Protein, Total (test 7.7 See_Comment [Autom ated code = 2885-2) message] The system which generated this result transmit key reference range : 6.0 - 8.3 gm/dL . The reference range was not u sed to interpret th is result as normal/abnormal . Albumin (test code = 3.4 g/dL 3.5-5.0 L 04368-3) Total Bilirubin (test 1.5 mg/dL 0.2-1.2 H code = 1975-2) Bilirubin, Direct 0.9 mg/dL 0.1-0.5 H (test code = 1968-7) Alkaline Phosphatase 64 U/L 40-150 (test code = 6768-6) AST (test code = 44 U/L 5-34 H 1920-8) ALT (test code = 45 U/L 6-55 1742-6) REID (test code = REID) Capture Manager ID - DB Lab Interpretation Abnormal (test code = 54491-9) [facility]ysHepatic function [id number] 06:39:00 Test Item Value Reference Range Interpretation Comments Protein, Total (test 7.7 See_Comment [Autom ated code = 2885-2) message] The system which generated this result transmit key reference range : 6.0 - 8.3 gm/dL . The reference range was not u sed to interpret th is result as normal/abnormal . Albumin (test code = 3.4 g/dL 3.5-5.0 L 27105-3) Total Bilirubin (test 1.5 mg/dL 0.2-1.2 H code = 1974-2) Bilirubin, Direct 0.9 mg/dL 0.1-0.5 H (test code = 1967-7) Alkaline Phosphatase 64 U/L 40-150 (test code = 6768-6) AST (test code = 44 U/L 5-34 H 1920-8) ALT (test code = 45 U/L 6-55 1742-6) REID (test code = REID) Capture Manager ID - DB Lab Interpretation Abnormal (test code = 52754-3) [facility]ysCOMPREHENSIVE METABOLIC [id number] 06:39:00 Test Item Value Reference Range Interpretation [...] S NOT APPLICABLE FOR DIALYSIS PATIEN TS. Capture Manager ID - DBHEPATIC FUNCTION [id number] 06:39:00 Test Item Value Reference Range Interpretation [...] (test code = 45 U/L 6-55 347) Capture Manager ID - DBCBC W/PLT COUNT & AUTO [id number] 04:32:00 Test Item Value Reference Range Interpretation [...] (BEAKER) (test code = 2801) Respiratory Panel [id number] 23:56:00 Test Item Value Reference Range Interpretation Comments Human Metapneumovirus Not detected Not detected, (test code = 35255-8) Equivocal Rhinovirus (test code = Not detected Not detected, 60294-9) Equivocal INFLUENZA A (NO Not detected Not detected, SUBTYPE) (test code = Equivocal 95511-7) Influenza A subtype H1 (test code = 36540-0) Influenza A Subtype H3 (test code = 08922-2) Influenza A Subtype H1-2009 (test code = 10970-0) Influenza B (test code Not detected Not detected, = 20691-5) Equivocal Respiratory Syncytial Not detected Not detected, Virus (test code = Equivocal 65103-7) Parainfluenza Virus 1 Not detected Not detected, (test code = 68597-7) Equivocal Parainfluenza Virus 2 Not detected Not detected, (test code = 54680-7) Equivocal Parainfluenza virus 3 Not detected Not detected, (test code = 60544-5) Equivocal Parainfluenza Virus 4 Not detected Not detected, (test code = 47661-0) Equivocal Adenovirus (test code = Not detected Not detected, 23925-4) Equivocal Coronavirus 229E (test Not detected Not detected, code = 30576-2) Equivocal Coronavirus HKU1 (test Not detected Not detected, code = 14559-7) Equivocal Coronavirus NL63 (test Not detected Not detected, code = 11555-6) Equivocal Coronavirus OC43 (test Not detected Not detected, code = 93414-2) Equivocal Bordetella Pertussis Not detected Not detected, (test code = 03203-2) Equivocal Chlamydophila Not detected Not detected, Pneumoniae (test code = Equivocal 65087-2) Mycoplasma Pneumoniae Not detected Not detected, (test code = 09516-4) Equivocal REID (test code = REID) Other viruses and bacteria not targeted by this PCR panel cannot be excluded; therefore clinical correlation and follow up of serology, culture results, and other molecular studies is required. The results are not intended to be used as the sole means for clinical diagnosis or patient management decisions. This sample was tested at the [facility] Molecular Diagnostics [facility] using the [employer] Respiratory Panel. It is FDA cleared and has been verified and approved by the [facility] for clinical use on nasopharyngeal swab specimens. The performance of the [employer] RP has not been established in individuals who received influenza vaccine. Recent administration of a nasal influenza vaccine may cause false positive results for Influenza A and/orInfluenza B. [facility]ys[facility] Panel [id number] 23:56:00 Test Item Value Reference Range Interpretation Comments Human Metapneumovirus Not detected Not detected, (test code = 59504-6) Equivocal Rhinovirus (test code = Not detected Not detected, 95387-2) Equivocal INFLUENZA A (NO Not detected Not detected, SUBTYPE) (test code = Equivocal 59158-9) Influenza A subtype H1 (test code = 71545-4) Influenza A Subtype H3 (test code = 06127-8) Influenza A Subtype H1-2009 (test code = 32183-7) Influenza B (test code Not detected Not detected, = 05763-9) Equivocal Respiratory Syncytial Not detected Not detected, Virus (test code = Equivocal 81117-2) Parainfluenza Virus 1 Not detected Not detected, (test code = 37057-9) Equivocal Parainfluenza Virus 2 Not detected Not detected, (test code = 85928-8) Equivocal Parainfluenza virus 3 Not detected Not detected, (test code = 80267-5) Equivocal Parainfluenza Virus 4 Not detected Not detected, (test code = 63007-9) Equivocal Adenovirus (test code = Not detected Not detected, 75529-9) Equivocal Coronavirus 229E (test Not detected Not detected, code = 02826-5) Equivocal Coronavirus HKU1 (test Not detected Not detected, code = 30180-8) Equivocal Coronavirus NL63 (test Not detected Not detected, code = 13356-8) Equivocal Coronavirus OC43 (test Not detected Not detected, code = 88579-9) Equivocal Bordetella Pertussis Not detected Not detected, (test code = 18184-8) Equivocal Chlamydophila Not detected Not detected, Pneumoniae (test code = Equivocal 30016-2) Mycoplasma Pneumoniae Not detected Not detected, (test code = 26058-3) Equivocal REID (test code = REID) Other viruses and bacteria not targeted by this PCR panel cannot be excluded; therefore clinical correlation and follow up of serology, culture results, and other molecular studies is required. The results are not intended to be used as the sole means for clinical diagnosis or patient management decisions. This sample was tested at the [facility] using the [employer] Respiratory Panel. It is FDA cleared and has been verified and approved by the [facility] for clinical use on nasopharyngeal swab specimens. The performance of the FilmArray RP has not been established in individuals who received influenza vaccine. Recent administration of a nasal influenza vaccine may cause false positive results for Influenza A and/orInfluenza B. [facility] [id number] 23:56:00 Test Item Value Reference Range Interpretation [...] decisions. This sample was tested at the [facility] using the [employer] FilmArray Respiratory Panel. It is FDA cleared and has been verified and approved by the [facility] for clinical use on nasopharyngeal swab specimens.The performance of the FilmArrayRP has not been established in individuals who received influenza vaccine. Recent administration of a nasal influenza vaccine may cause false positive results for Influenza A and/orInfluenza B.SARS-COV2/RT-PCR ([facility])2021-04-02 23:52:00 Test Item Value Reference Range Interpretation Comments SARS-COV2/RT-PCR A positive COVID-19 test in (test code = 6078201) a prev iously positive patient in the [...] revoked sooner. Fact Sheet for Healthcare Providers: https://www.[employer] m/Documents/Xpert%20Xpress%20SARS%20CoV-2/Fact%20Sheets/715-8242%76QOJR-VBK-4%20 HEALTHCARE%20PROVIDERS%20FACT%20SHEET.pdf Fact Sheet for Healthcare Patients: https://www.[employer]/Documents/Xpert%20Xp ress%20SARS%20CoV-2/Fact%20Sheets/3023801%41SCSS-FVE-0%20PATIENT%20FACT%20SHEET .pdfSARS-CoV2/RT-PCR (Symptomatic ONLY)2021-04-02 23:52:00 SARS-COV2/RT-PCRComment: A positive [...] symptom onset (per CDC and hospital policy). [facility] test [facility] been authorized by FDA under [...] revoked sooner. Fact Sheet for Healthcare Providers: https://www.[employer]/Documents/Xpert%20Xpress%20SARS%20CoV -2/Fact%20Sheets/302-3802%73IFFW-ZXG-3%20HEALTHCARE%20PROVIDERS%20FACT%20SHEET.p df Fact Sheet for Healthcare Patients: https://www.[employer]/Documents/Xpert%20Xpress%20SARS%20CoV-2/Fact%20Sheets/30 2-3801%39JQQT-ODJ-1%20PATIENT%20FACT%20SHEET.pdfCH[facility] SARS-CoV2/RT-PCR (Symptomatic ONLY)2021-04-02 23:52:00SARS-COV2/RT-PCRComment: A positive COVID-19 [...] symptom onset (per CDC and hospital policy). [facility]This test has been authorized by FDA under [...] revoked sooner. Fact Sheet for Healthcare Providers: https://www.[employer]/Documents/Xpert%20Xpress%20SARS%20CoV -2/Fact%20Sheets/302-3802%00AMCS-DQG-4%20HEALTHCARE%20PROVIDERS%20FACT%20SHEET.p df Fact Sheet for Healthcare Patients: https://www.[employer]/Documents/Xpert%20Xpress%20SARS%20CoV-2/Fact%20Sheets/30 2-3801%31NJTL-HHQ-7%20PATIENT%20FACT%20SHEET.pdfHollywood [facility] Hospital of Van NuysPOCT- GLUCOSE [id number] 22:49:00 Test Item Value Reference Range Interpretation Comments POC-GLUCOSE METER 289 mg/dL 70-110 H : TESTED A T [facility] 6720 (JEANNINE) (test code = JOSE Dante [place]AS [place], 1538) [address]: Capture Manager/Techni albina ID = [id number] for NO ZIGGY KELLER Strep pneumoniae [id number] 21:55:00 Test Item Value Reference Range Interpretation Comments Strep pneumoniae Presumptive negative Presumptive Antigen (test code = [place] [address]-0) pneumonia - see pneumococcal comment pneumonia - [...] test. Lab Interpretation Normal (test code = 43700-6) [facility] [id number] 21:55:00 Test Item Value Reference Range Interpretation Comments Strep pneumoniae Presumptive negative Presumptive Antigen (test code = [place] [address]-2) pneumonia - see pneumococcal comment pneumonia - [...] test. Lab Interpretation Normal (test code = 09666-1) [facility] HospitalTREP PNEUMONIAE [id number] 21:55:00 Test Item Value Reference Range Interpretation [...] detection limit of the test. Legionella antigen, [id number] 21:54:00 Test Item Value Reference Range Interpretation Comments Legionella Urine Negative - see Negative for L. Antigen (test code comment pneumophi la = 51471-4) serogroup 1 ant igen, suggesting no r ecent or current infe ction with this serog roup. Legionellosis c annot be ruled out si nce other serogroup s and species may cau se disease. [facility] NuysLegionella antigen, [id number] 21:54:00 Test Item Value Reference Range Interpretation Comments Legionella Urine Negative - see Negative for L. Antigen (test code comment pneumophi la = 46152-9) serogroup 1 ant igen, suggesting no r ecent or current infe ction with this serog roup. Legionellosis c annot be ruled out si nce other serogroup s and species may cau se disease. [facility] NuysLEGIONELLA ANTIGEN, [id number] 21:54:00 Test Item Value Reference Range Interpretation [...] se disease. RAD, CHEST, 1 VIEW, NON [id number] 19:51:00Admission hypoxiaReason for exam:->covidShould this be performed at the bedside?->Yes [facility] 1950 Sex: [...] MDReport Verified Date/Time: 04/02/2021 19:51:46 Reading Location: [address] Body Reading Room Lactic acid, venous 2021-04-02 19:48:00 Test Item Value Reference Range Interpretation Comments Lactate, Venous (test code 1.06 mmol/L 0.50-2.20 = 2872) REID (test code = REID) Capture Manager ID - PIAYA L Lab Interpretation (test Normal code = 99827-2) [facility] NuysLactic acid, [id number] 19:48:00 Test Item Value Reference Range Interpretation Comments Lactate, Venous (test code 1.06 mmol/L 0.50-2.20 = 2872) REID (test code = REID) Capture Manager ID - CARA L Lab Interpretation (test Normal code = 35285-6) [facility] CenterLACTIC ACID, [id number] 19:48:00 Test Item Value Reference Range Interpretation Comments LACTATE BLOOD VENOUS (2) (BEAKER) 1.06 mmol/L 0.50-2.20 (test code = 2872) Capture Manager ID - CARA LThromboelastograph (TEG)2021-04-02 19:32:00 Test Item Value Reference Range Interpretation Comments TEG Activated Clotting 7.9 See_Comment H [Aut omated message] Time (test code = The system which 31936-4) generated this result transmitted ref erence range: 4.0 - 7. 0 minutes. The reference range was not used to int erpret this result as normal/abnormal . TEG Fibrinogen Activity 65.4 See_Comment [Au tomated message] (test code = 79539-9) The sy stem which generated this result transmitted ref erence range: 61.0 - 7 3.0 degrees. The reference range was not used to int erpret this result as normal/abnormal . TEG Platelet Aggregation 70.3 See_Comment H [A utomated message] (test code = 26329-9) The sy stem which generated this result transmitted ref erence range: 55.0 - 6 5.0 MM. The referen ce range was not u sed to interpret this result as normal/abnor mal. TEG Fibrinolysis (test 0.1 % 0.0-5.0 code = 87340-4) TEG-H Activated Clotting 8.5 See_Comment H [A [...] 1414) Lab Interpretation (test Abnormal code = 44089-7) [facility] NuysThromboelastograph (TEG)2021-04-02 19:32:00 Test Item Value Reference Range Interpretation Comments TEG Activated Clotting 7.9 See_Comment H [Aut omated message] Time (test code = The system which 99021-7) generated this result transmitted ref erence range: 4.0 - 7. 0 minutes. The reference range was not used to int erpret this result as normal/abnormal . TEG Fibrinogen Activity 65.4 See_Comment [Au tomated message] (test code = 87412-1) The sy stem which generated this result transmitted ref erence range: 61.0 - 7 3.0 degrees. The reference range was not used to int erpret this result as normal/abnormal . TEG Platelet Aggregation 70.3 See_Comment H [A utomated message] (test code = 70528-0) The sy stem which generated this result transmitted ref erence range: 55.0 - 6 5.0 MM. The referen ce range was not u sed to interpret this result as normal/abnor mal. TEG Fibrinolysis (test 0.1 % 0.0-5.0 code = 78178-6) TEG-H Activated Clotting 8.5 See_Comment H [A [...] 1414) Lab Interpretation (test Abnormal code = 87299-1) [facility] NuysTHROMBOELASTOGRAPH (TEG)2021-04-02 19:32:00 Test Item Value Reference Range [...] (test 2.4 % 0.0-5.0 code = 1414) [id number] 19:18:00 Test Item Value Reference Range Interpretation Comments Ferritin (test code = 403.90 ng/mL 5.00-275.00 H 2276-4) REID (test code = REID) Capture Manager ID - PIAYA L Lab Interpretation (test Abnormal code = 61943-9) [facility] NuysFerritin2021-08-29 19:18:00 Test Item Value Reference Range Interpretation Comments Ferritin (test code = 403.90 ng/mL 5.00-275.00 H 2276-4) REID (test code = REID) Capture Manager ID - PIAYA L Lab Interpretation (test Abnormal code = 97914-0) [facility] NuysFERRITIN2021-08-29 19:18:00 Test Item Value Reference Range Interpretation Comments FERRITIN (BEAKER) (test code = 403.90 ng/mL 5.00-275.00 H 361) Capture Manager ID - CARA WALSHrinalysis w/Microscopic + Reflex to [id number] 19:07:00 Test Item Value Reference Range Interpretation Comments Color, UA (test code Yellow = 5778-6) Clarity, UA (test Hazy code = 5767-9) Specific [place], UA 1.018 1.001-1.035 (test code = 5811-5) pH, UA (test code = 5.5 5.0-8.0 5803-2) Protein, UA (test 20 mg/dL Negative A code = 48776-9) Glucose, UA (test Negative Negative code = 365) Ketones, UA (test Negative Negative code = 2514-8) Bilirubin, UA (test Negative Negative code = 12687-2) Blood, UA (test code Trace Negative A = 03740-1) Nitrite, UA (test Negative Negative code = 5802-4) Leukocytes, UA (test Moderate Negative A code = 5799-2) Urobilinogen, UA 0.2 mg/dL 0.2-1.0 (test code = 70125-3) RBC, UA (test code = 11 See_Comment [Autom ated 38999-5) message] The system which generated this result [...] Bacteria, UA (test None Seen code = 24454-0) Mucus (test code = Rare 8247-9) Hyaline Casts, UA 25 See_Comment [Automate d (test code = 42914-2) messag e] The system which generated this result transmit key reference range : /LPF. The reference range was not used to interpret this result as normal/abnormal . Crystals, Urine (test None Seen code = 29117-5) Specimen Source (test code = 2795) REID (test code = REID) Capture Manager ID - [auto]Capture Manager ID - tech Lab Interpretation Abnormal (test code = 73709-5) [facility]ysUrinalysis w/Microscopic + Reflex to Culture 2021-04-02 19:07:00 Test Item Value Reference Range Interpretation Comments Color, UA (test code Yellow = 5778-6) Clarity, UA (test Hazy code = 5767-9) Specific [place], UA 1.018 1.001-1.035 (test code = 5811-5) pH, UA (test code = 5.5 5.0-8.0 5803-2) Protein, UA (test 20 mg/dL Negative A code = 34703-9) Glucose, UA (test Negative Negative code = 365) Ketones, UA (test Negative Negative code = 2514-8) Bilirubin, UA (test Negative Negative code = 75628-8) Blood, UA (test code Trace Negative A = 81879-5) Nitrite, UA (test Negative Negative code = 5802-4) Leukocytes, UA (test Moderate Negative A code = 5799-2) Urobilinogen, UA 0.2 mg/dL 0.2-1.0 (test code = 36467-3) RBC, UA (test code = 11 See_Comment [Autom ated 05925-8) message] The system which generated this result [...] Bacteria, UA (test None Seen code = 48889-3) Mucus (test code = Rare 8247-9) Hyaline Casts, UA 25 See_Comment [Automate d (test code = 06419-4) messag e] The system which generated this result transmit key reference range : /LPF. The reference range was not used to interpret this result as normal/abnormal . Crystals, Urine (test None Seen code = 42625-5) Specimen Source (test code = 2795) REID (test code = REID) Capture Manager ID - [auto]Capture Manager ID - tech Lab Interpretation Abnormal (test code = 51160-9) [facility]ysURINALYSIS W/ REFLEX URINE [id number] 19:07:00 Test Item Value Reference Range Interpretation [...] = 1521) SOURCE(BEAKER) (test code = 2795) Capture Manager ID - [auto]Capture Manager ID - techHIGH SENSITIVITY TROPONIN [id number] 19:04:00 Test Item Value Reference Range Interpretation Comments HIGH SENSITIVITY 128 pg/ml See_Comment H [Automated message] TROPONIN I (test code The stem which = 9517457) generated this result transmitted ref erence range: <=35. Th e reference range was not used to int erpret this result as normal/abnormal . Capture Manager ID - PIAYA LThe CRYPTOLOGIC TECHNICIAN STAT High Sensitivity Troponin-I results should be used in conjunction with other diagnostic information such as ECG, clinical observations and information, and patient symptoms to aid in the diagnosis of NV.[id number] 18:56:00 Test Item Value Reference Range Interpretation Comments MAGNESIUM (BEAKER) (test code = 1.6 mg/dL 1.6-2.6 627) Capture Manager ID - PIAYA LC-REACTIVE [id number] 18:56:00 Test Item Value Reference Range Interpretation Comments C-REACTIVE PROTEIN (BEAKER) (test 5.18 mg/dL 0.00-0.50 H code = 676) Capture Manager ID - PIAYA LPOCT-GLUCOSE [id number] 18:46:00 Test Item Value Reference Range Interpretation Comments POC-GLUCOSE METER 221 mg/dL 70-110 H : TESTED A T [facility] 6720 (BEAKER) (test code [facility], = 1538) [address]: Capture Manager/Techni albina ID = [id number] for FLETCHER GATES BLOOD GAS, [id number] 18:42:00 Test Item Value Reference Range Interpretation [...] FIO2 (BEAKER) (test code = 1819) 100.0 [id number] 18:41:00 Test Item Value Reference Range Interpretation Comments PTT (test code = 23360-9) 34.8 See_Comment [ Automated message] The system [employer] generated this result transmitted ref erence range: 22.5 - 3 6.0 seconds. The re ference range was not u sed to interpret this result as normal/abnor mal. Lab Interpretation (test Normal code = 05250-8) [facility]ysOxygen saturation, [id number] 18:41:00 Test Item Value Reference Range Interpretation Comments O2 Saturation (Measured) (test code = 97.4 % 26437-6) [facility] NuysaPTT2021-08-29 18:41:00 Test Item Value Reference Range Interpretation Comments PTT (test code = 70015-2) 34.8 See_Comment [ Automated message] The system whic h generated this result transmitted ref erence range: 22.5 - 3 6.0 seconds. The re ference range was not u sed to interpret this result as normal/abnor mal. Lab Interpretation (test Normal code = 81325-5) [facility]ysOxygen saturation, [id number] 18:41:00 Test Item Value Reference Range Interpretation Comments O2 Saturation (Measured) (test code = 97.4 % 91962-5) [facility]ysOXYGEN SATURATION, [id number] 18:41:00 Test Item Value Reference Range Interpretation Comments O2 SATURATION (MEASURED) (BEAKER) 97.4 % (test code = 1455) [id number] 18:41:00 Test Item Value Reference Range Interpretation Comments PARTIAL THROMBOPLASTIN TIME 34.8 seconds 22.5-36.0 (BEAKER) (test code = 760) [id number] 18:40:00 Test Item Value Reference Range Interpretation Comments Fibrinogen (test code = 3255-7) 456 mg/dl 225-434 H Lab Interpretation (test code = Abnormal 77704-8) [facility] NuysProthrombin time/[id number] 18:40:00 Test Item Value Reference Interpretation Comments [...] valves. Lab Interpretation Abnormal (test code = 05305-5) [facility] NuysFibrinogen2021-08-29 18:40:00 Test Item Value Reference Range Interpretation Comments Fibrinogen (test code = 3255-7) 456 mg/dl 225-434 H Lab Interpretation (test code = Abnormal 17212-5) [facility] NuysProthrombin time/[id number] 18:40:00 Test Item Value Reference Interpretation Comments [...] valves. Lab Interpretation Abnormal (test code = 97364-9) [facility] NuysPROTHROMBIN TIME/[id number] 18:40:00 Test Item Value Reference Range Interpretation Comments PROTIME (BEAKER) 15.3 seconds 11.9-14.2 H (test code = 759) INR (BEAKER) (test 1.23 See_Comment [Automat ed message] code = 370) The system [employer] h generated this result transmitted ref erence range: <=5.90. The reference range was not used to int erpret this result as normal/abnormal . RECOMMENDED COUMADIN/WARFARIN INR THERAPY RANGESSTANDARD DOSE: 2.0 - 3.0 Includes: PROPHYLAXIS for venous thrombosis, systemic embolization; TREATMENT for venous thrombosis and/or pulmonary embolus.HIGH RISK: Target INR is 2.5-3.5 for patients with mechanical heart valves.[id number] 18:40:00 Test Item Value Reference Range Interpretation Comments FIBRINOGEN LEVEL (BEAKER) (test 456 mg/dl 225-434 H code = 658)
[2023-06-08] MEDS ORDERED: NA CHLORIDE 0.9% 500 ML ONE ×2 (16:07→17:38)
[2023-06-08] MEDS ORDERED: ACETAMINOPHEN 500 MG TAB ONE (16:07)
[2023-06-08 16:18] LABS: Hematocrit 38.3 % (39.6-49.0); MCV 83.5 fL (80-100); MPV 8.6 fL (7.6-11.3); Platelets 245 thou/uL (152-406); RBC Red Blood Cell Count 4.58 M/uL (4.33-5.43)
[2023-06-08 16:25] LABS: Protime INR 1.13
[2023-06-08 16:37] LABS: SARS-CoV-2 Antigen Rapid Res Negative (Negative)
--- NOTE | 2023-06-08 16:41 | RAD REPORT ---
EXAM DESCRIPTION: RAD - Chest Single View - 06/08/2023 4:34 pm CLINICAL HISTORY: DYSPNEA COMPARISON: Chest Single View dated 05/28/2023; Chest Single View dated 04/02/2021; Chest Single View dated 12/05/2020; Chest Single View dated 12/05/2020 FINDINGS: Lines: None. Lungs: Diffuse prominence of the pulmonary interstitium. Pleural: No significant pleural effusions or pneumothorax. Cardiac: Enlarged cardiac silhouette. Mediastinum: Within normal limits. Bones: No acute fractures. Other: None IMPRESSION: Findings most likely representing pulmonary edema. Findings are similar to 05/28/2023 .
[2023-06-08 16:42] LABS: Albumin 2.8 g/dL (3.4-5.0); Bilirubin Total 0.6 mg/dL (0.2-1.0); Potassium 3.8 mEq/L (3.5-5.1); Protein, Total 8.1 g/dL (6.4-8.2); Troponin High Sensitivity 54.1 pg/mL (<58.9)
--- NOTE | 2023-06-08 17:33 | ER ---
Nurse's Notes [facility] Name: Sumanth Rodriguez Age: 72 yrs Sex: Male : 1950 Arrival Date: 06/08/2023 Time: 15:21 Bed 7 Private MD: Diagnosis: Acute pulmonary edema;Dyspnea, unspecified;Tachycardia, unspecified Presentation: 06/08 15:27 Chief complaint: EMS states: long term called for HR 150s, pt c/o palpitations since hb this morning. HR 150, SpO2 88% on RA, 95% on 2LNC. Coronavirus screen: At this time, the client does not indicate any symptoms associated with coronavirus-19. Ebola Screen: No symptoms or risks identified at this time. Initial Sepsis Screen: Does the patient meet any 2 criteria? No. Patient's initial sepsis screen is negative. Does the patient have a suspected source of infection? No. Patient's initial sepsis screen is negative. Risk Assessment: Do you want to hurt yourself or someone else? Patient reports no desire to harm self or others. Onset of symptoms was June 08, 2023. 15:27 Method Of Arrival: EMS: [facility] 15:27 Acuity: TORY 2 hb Triage Assessment: 15:30 General: Appears in no apparent distress. Behavior is calm, cooperative. Pain: Denies hb pain. EENT: No signs and/or symptoms were reported regarding the EENT system. Neuro: Level of Consciousness is awake, alert, obeys commands, Oriented to person, place, situation. Cardiovascular: Reports palpitations, Patient's skin is warm and dry. Rhythm is sinus tachycardia. Respiratory: Respiratory effort is labored, Respiratory pattern is tachypnea. GI: No signs and/or symptoms were reported involving the gastrointestinal system. : No signs and/or symptoms were reported regarding the genitourinary system. Derm: Skin is pink, warm \T\ dry. Musculoskeletal: No signs and/or symptoms reported regarding the musculoskeletal system. Historical: - Allergies: 16:28 No Known Allergies; hb - Home Meds: 15:29 Eliquis 5 mg Oral tab 1 tab 2 times per day [Active]; hb - PMHx: 15:29 Atrial Fib; CHF; constipation; CVA; Diabetes - NIDDM; DYSPHAGIA; GERD; hemiplegia left hb side; Hyperlipidemia; Hypertension; muscle spasms; - Immunization history:: Adult Immunizations up to date. - Social history:: Smoking status: . - Family history:: not pertinent. - Hospitalizations: : No recent hospitalization is reported. Screenin:16 [facility] ED Fall Risk Assessment (Adult) Score/Fall Risk Level 3 or more points = High hb Risk Oriented to surroundings, Maintained a safe environment, Educated pt \T\ family on fall prevention, incl call for assistance when getting out of bed, Assessed \T\ reinforced patient's understanding of fall precautions. Abuse screen: Denies threats or abuse. Denies injuries from another. Nutritional screening: No deficits noted. Tuberculosis screening: No symptoms or risk factors identified. Assessment: 15:35 General: See triage assessment.. hb 16:30 Reassessment: No changes from previously documented assessment. Patient and/or family hb updated on plan of care and expected duration. Pain level reassessed. 17:00 Reassessment: No changes from previously documented assessment. Patient and/or family hb updated on plan of care and expected duration. Pain level reassessed. 17:05 Reassessment: Krystal BLAIR at bedside for BiPAP set up. hb 17:11 Reassessment: BiPAP 16/6, 30% FiO2. hb 18:32 Reassessment: Pt remains on BiPAP, HR 130-150, Dr. Sandoval aware. Brother at bedside. hb Admission ordered, awaiting room assignment at this time. Vital Signs: 15:27 BP 105 / 73; Pulse 159; Resp 22; Temp 99(O); Pulse Ox 95% on 2 lpm NC; Pain 2/10; hb 16:00 BP 111 / 61; Pulse 149; Resp 24; Pulse Ox 97% on 2 lpm NC; hb 16:30 BP 102 / 86; Pulse 149; Resp 29; Pulse Ox 98% on 2 lpm NC; hb 17:00 BP 108 / 79; Pulse 151; Resp 31; Pulse Ox 100% on 2 lpm NC; hb 17:30 BP 124 / 92; Pulse 147; Resp 24; Pulse Ox 99% on 30 lpm BiPAP; hb 18:33 BP 104 / 73; Pulse 144; Resp 17; Pulse Ox 98% on 30 lpm BiPAP; hb 15:27 Pain Scale: Adult hb ED Course: 15:27 Patient arrived in ED. hb 15:29 Triage completed. hb 15:29 Arm band placed on. hb 15:30 Madan Sandoval MD is Attending Physician. rn 16:15 Flu Sent. hb 16:15 SARS RAPID Sent. hb 16:15 Troponin High Sensitivity Sent. hb 16:15 BNP Sent. hb 16:17 Inserted saline lock: 20 gauge in left antecubital area, using aseptic technique. Blood hb collected. 16:31 Patient has correct armband on for positive identification. Provided Education on: . hb 16:36 Chest Single View XRAY In Process Unspecified. EDMS 16:46 Kirstie Read, RN is Primary Nurse. hb 17:01 BIPAP Sent. hb 17:32 Tigre Cross is Hospitalizing Provider. rn 20:03 No provider procedures requiring assistance completed. me1 20:03 Patient admitted, IV remains in place. me1 20:12 Note: .pt refused CT PE exam, hospitalizing provider notified . mw3 Administered Medications: 16:15 Drug: NS 0.9% IV 500 ml IV at bolus once Route: IV; Rate: bolus; Site: left antecubital;hb 16:16 Drug: Acetaminophen PO 1000 mg PO once Route: PO; hb 17:02 Drug: NS 0.9% IV 250 ml IV at bolus once Route: IV; Rate: bolus; Site: left antecubital;hb 17:35 Drug: Rocephin IV 1 grams IV at calculated rate once; Given slow IV push per pharmacy hb instructions Route: IV; Rate: calculated rate; Site: left antecubital; 17:39 Drug: Digoxin IVP 0.25 mg IVP once Route: IVP; Site: left antecubital; hb 17:40 Drug: Zithromax IVPB 500 mg IVPB once over 1 hrs; mix in 250 mL NS Route: IVPB; Infused hb Over: 1 hrs; Site: left antecubital; 18:09 Drug: Furosemide IVP 20 mg IVP once; give over 2 minutes Route: IVP; Site: left hb antecubital; Medication: 16:30 VIS not applicable for this client. hb Outcome: 17:32 Decision to Hospitalize by Provider. rn 20:02 Admitted to Med/surg accompanied by tech, via stretcher, room 216, with oxygen, with me1 chart, 20:02 Condition: stable 20:02 Instructed on the need for admit, 20:29 Admitted to Med/surg Report called to WARREN Rogers me1 20:29 Instructed on 20:31 Patient left the ED. lg3 Signatures: Dispatcher [employer] EDMadan Johnson MD MD rn Baxter, Heather, RN RN hb Willis, Michelle 3 Emelyn Lewis RN RN lg3 Yane Rahman RN RN me1 Corrections: (The following items were deleted from the chart) 17: 15:30 Neuro: Level of Consciousness is awake, alert, obeys commands, Oriented to hb person, place, situation, hb 17: 15:30 Cardiovascular: Reports palpitations, Patient's skin is warm and dry. Rhythm is hb AFIB w/RVR hb
--- NOTE | 2023-06-08 17:33 | EDPHYS ---
Physician Documentation [facility] Name: Sumanth Rodriguez Age: 72 yrs Sex: Male : 1950 Arrival Date: 06/08/2023 Time: 15:21 Bed 7 Private MD: ED Physician Madan Sandoval HPI: 06/08 16:39 This 72 yrs old Black Male presents to ER via EMS with complaints of Palpitations. rn 16:39 The patient presents with a history of heart racing. Context: The symptoms occur at rn rest. Onset: The symptoms/episode began/occurred today. Duration: The patient or guardian reports a single episode, that is still ongoing. Modifying factors: The symptoms are aggravated by nothing. The symptoms are alleviated by nothing. Severity of symptoms: At their worst the symptoms were moderate in the emergency department the symptoms are unchanged. The patient has experienced similar episodes in the past. The patient has not recently seen a physician. Historical: - Allergies: 16:28 No Known Allergies; hb - Home Meds: 15:29 Eliquis 5 mg Oral tab 1 tab 2 times per day [Active]; hb - PMHx: 15:29 Atrial Fib; CHF; constipation; CVA; Diabetes - NIDDM; DYSPHAGIA; GERD; hemiplegia left hb side; Hyperlipidemia; Hypertension; muscle spasms; - Immunization history:: Adult Immunizations up to date. - Social history:: Smoking status: . - Family history:: not pertinent. - Hospitalizations: : No recent hospitalization is reported. ROS: 16:39 Constitutional: Negative for fever, chills, and weight loss, Eyes: Negative for injury, rn pain, redness, and discharge, Cardiovascular: Positive for palpitations and heart racing, negative for chest pain Respiratory: Negative for shortness of breath, cough, wheezing, and pleuritic chest pain, Abdomen/GI: Negative for abdominal pain, nausea, vomiting, diarrhea, and constipation, MS/Extremity: Negative for injury and deformity, Skin: Negative for injury, rash, and discoloration, Neuro: Negative for headache, weakness, numbness, tingling, and seizure, Exam: 16:39 Constitutional: This is a well developed, well nourished patient who is awake, alert, rn seems anxious Head/Face: Normocephalic, atraumatic. Cardiovascular: Tachycardic, regular. No pulse deficits Respiratory: No increased work of breathing, no retractions or nasal flaring. Abdomen/GI: Soft, non-tender Skin: Warm, dry MS/ Extremity: Pulses equal, no cyanosis. Neuro: Awake and alert, GCS 15 Vital Signs: 15:27 BP 105 / 73; Pulse 159; Resp 22; Temp 99(O); Pulse Ox 95% on 2 lpm NC; Pain 2/10; hb 16:00 BP 111 / 61; Pulse 149; Resp 24; Pulse Ox 97% on 2 lpm NC; hb 16:30 BP 102 / 86; Pulse 149; Resp 29; Pulse Ox 98% on 2 lpm NC; hb 17:00 BP 108 / 79; Pulse 151; Resp 31; Pulse Ox 100% on 2 lpm NC; hb 17:30 BP 124 / 92; Pulse 147; Resp 24; Pulse Ox 99% on 30 lpm BiPAP; hb 18:33 BP 104 / 73; Pulse 144; Resp 17; Pulse Ox 98% on 30 lpm BiPAP; hb 15:27 Pain Scale: Adult hb MDM: 15:30 Patient medically screened. rn 17:01 ED course: Multiple EKGs showing sinus tachycardia. All EKGs pulled and shows sinus rn tachycardia to the 140s as well very regular in October with P waves evident. Patient also not on any sort of rate control. Patient still tachypneic, will put on BiPAP to see if helps both. Fluids administered blood being careful less chest x-ray shows possible pulmonary edema. BNP normal. Troponin negative.. 17:23 Differential diagnosis: arrythmia, dehydration, stress disorder, Diastolic heart rn failure, infection, lactic acidosis, hypoxemia, pulmonary fibrosis. Data reviewed: vital signs, nurses notes, lab test result(s), EKG, radiologic studies, plain films, and as a result, I will admit patient. Consideration of Admission/Observation Patient was admitted/placed on observation. Escalation of care including admission/observation considered. Management of patient was discussed with the following: Hospitalist: Will admit patient. I considered the following discharge prescriptions or medication management in the emergency department Medications were administered in the Emergency Department. See MAR. Independent interpretation of the following test(s) in the Emergency Department EKG: See my EKG interpretation above X-Ray: My interpretation is Chest x-ray images show interstitial prominence per my interpretation. Care significantly affected by the following chronic conditions: Hypertension, Congestive Heart Failure. Counseling: I had a detailed discussion with the patient and/or guardian regarding the historical points, exam findings, and any diagnostic results supporting the discharge/admit diagnosis, lab results, radiology results, the need for further work-up and treatment in the hospital. Response to treatment: the patient's symptoms have mildly improved after treatment, and as a result, I will admit patient. 18:37 ED course: Patient had good but brief response to digoxin. Heart rate dropped to the rn 90s, sinus, but went up quickly to the 120s and then reverted back to the 140s as original. Still no irregularity to it and still appears sinus tachycardia, just refractory to fever management, fluid management and digoxin as well.. 06/08 15:51 Order name: Blood Culture Adult (2) 06/08 15:51 Order name: CBC with Diff; Complete Time: 16:42 06/08 15:51 Order name: CMP; Complete Time: 16:48 06/08 15:51 Order name: Lactate w/ 2H reflex if indic.; Complete Time: 16:49 06/08 15:51 Order name: Protime (+inr); Complete Time: 16:42 06/08 15:51 Order name: Ptt, Activated; Complete Time: 16:42 rn 06/08 15:51 Order name: Urinalysis w/ reflexes rn 06/08 15:51 Order name: SARS RAPID; Complete Time: 16:42 06/08 15:51 Order name: Flu; Complete Time: 16:42 06/08 15:51 Order name: BNP; Complete Time: 16:48 rn 06/08 15:51 Order name: Troponin High Sensitivity; Complete Time: 16:48 rn 06/08 18:37 Order name: CBC with Automated Diff EDMS 06/08 18:37 Order name: CBC with Automated Diff EDMS 06/08 18:37 Order name: Comprehensive Metabolic Panel EDMS 06/08 18:37 Order name: Comprehensive Metabolic Panel EDMS 06/08 18:37 Order name: Lipid Profile EDMS 06/08 18:37 Order name: Lipid Profile EDMS 06/08 18:37 Order name: Troponin High Sensitivity EDMS 06/08 18:37 Order name: Troponin High Sensitivity EDMS 06/08 18:37 Order name: Troponin High Sensitivity EDMI 06/08 18:37 Order name: Troponin High Sensitivity [facility] 06/08 18:39 Order name: ABG Arterial Blood Gas EDMI 06/08 15:51 Order name: Chest Single View XRAY; Complete Time: 16:42 rn 06/08 16:55 Order name: BIPAP rn 06/08 18:39 Order name: Chest Angio EDMI 06/08 15:51 Order name: EKG; Complete Time: 15:52 rn 06/08 18:35 Order name: Social Service Consult EDMI 06/08 15:51 Order name: Accucheck; Complete Time: 16:15 rn 06/08 15:51 Order name: Cardiac monitoring; Complete Time: 16:15 rn 06/08 15:51 Order name: EKG - Nurse/Tech; Complete Time: 16:15 rn 06/08 15:51 Order name: IV Saline Lock - Large Bore; Complete Time: 16:15 rn 06/08 15:51 Order name: Labs collected and sent; Complete Time: 16:15 rn 06/08 15:51 Order name: O2 Per Protocol; Complete Time: 16:15 rn 06/08 15:51 Order name: O2 Sat Monitoring; Complete Time: 16:15 rn 06/08 15:51 Order name: Vital Signs; Complete Time: 16:15 rn Administered Medications: 16:15 Drug: NS 0.9% IV 500 ml IV at bolus once Route: IV; Rate: bolus; Site: left antecubital;hb 16:16 Drug: Acetaminophen PO 1000 mg PO once Route: PO; hb 17:02 Drug: NS 0.9% IV 250 ml IV at bolus once Route: IV; Rate: bolus; Site: left antecubital;hb 17:35 Drug: Rocephin IV 1 grams IV at calculated rate once; Given slow IV push per pharmacy hb instructions Route: IV; Rate: calculated rate; Site: left antecubital; 17:39 Drug: Digoxin IVP 0.25 mg IVP once Route: IVP; Site: left antecubital; hb 17:40 Drug: Zithromax IVPB 500 mg IVPB once over 1 hrs; mix in 250 mL NS Route: IVPB; Infused hb Over: 1 hrs; Site: left antecubital; 18:09 Drug: Furosemide IVP 20 mg IVP once; give over 2 minutes Route: IVP; Site: left hb antecubital; Disposition Summary: 06/08/23 17:32 Hospitalization Ordered Notes: Hospitalization Status: Inpatient Admission rn Provider: Tigre Cross rn Location: Telemetry/MedSurg (Inpatient) rn Condition: Stable rn Problem: new rn Symptoms: have improved rn Bed/Room Type: Standard rn Room Assignment: 216(06/08/23 19:29) mw Diagnosis - Acute pulmonary edema rn - Dyspnea, unspecified rn - Tachycardia, unspecified rn Forms: - Medication Reconciliation Form rn - SBAR form rn - Leadership Thank You Letter rn Signatures: Dispatcher [employer] Maggy Driver RN RN mw Madan Sandoval MD MD rn Baxter, Heather, RN RN Corrections: (The following items were deleted from the chart) 19:29 17:32 rn mw
[2023-06-08] MEDS ORDERED: AZITHROMYCIN 500 MG INJ IVPB ONE (17:37)
[2023-06-08] MEDS ORDERED: CEFTRIAXONE 1000 MG/VIAL ONE (17:37)
[2023-06-08] MEDS ORDERED: DIGOXIN 0.25 MG/ML AMP ONE (17:44)
[2023-06-08] MEDS ORDERED: FUROSEMIDE 20 MG/ 2ML VIAL ONE (18:01)
--- NOTE | 2023-06-08 18:29 | P.HP ---
Certification for Inpatient Patient admitted to: Inpatient With expected LOS: >2 Midnights Patient will require the following post-hospital care: Long Term Practitioner: I am a practitioner with admitting privileges, knowledge of patient current condition, hospital course, and medical plan of care. Services: Services provided to patient in accordance with Admission requirements found in Title 42 Section 412.3 of the Code of Federal Regulations Patient History Date of Service: 06/08/23 Reason for admission: Palpitation History of Present Illness: 70-year-old AAM with past medical history of atrial fibrillation, CHF, CVA with residual left hemiparesis, diabetes, GERD, hyperlipidemia, hypertension, muscle cramps who is a [facility] resident who was transferred to ER with palpitations which has been going on since this morning. Patient denies any chest pain. At the time of interview patient is on BiPAP hence cannot offer any history hence most of the history is obtained from family member who is at the bedside and also with the ER physician. Patient had a recent pneumonia which was treated with Antibiotics denies any fever or chills associated with shortness of breath.. Cough present which is nonproductive. Patient was assessed in the ER and was found to have elevated lactic acid levels and tachycardic. However the x-ray shows signs of pulmonary edema Patient to be admitted for further management UA still pending Allergies No Known Allergies Allergy (Verified 05/28/23 21:44) Home medications list reviewed: Yes Home Medications: Acetaminophen [Tylenol] 650 mg PO Q6HP PRN 05/29/23 Apixaban [Eliquis *] 5 mg PO BID 05/29/23 Atorvastatin Calcium [Lipitor] 40 mg PO BEDTIME 05/29/23 Baclofen 5 mg PO TID 05/29/23 Cholecalciferol (Vitamin D3) [Vitamin D3] 2,000 unit PO DAILY 05/29/23 Divalproex Sodium 1,000 mg PO BID 05/29/23 Docusate [Colace Cap*] 100 mg PO DAILY 05/29/23 Doxycycline Hyclate 100 mg PO BID 05/29/23 Fluticasone [Flonase 50MCG Nasal [place]*] 2 spr DANA DAILY 05/29/23 Furosemide [Lasix*] 40 mg PO DAILY 05/29/23 Gabapentin 100 mg PO TID 05/29/23 Insulin Glargine,Hum.rec.anlog [Lantus] 10 unit SQ BEDTIME 05/29/23 Insulin Lispro [Humalog] 5 unit SQ TIDWM 05/29/23 Ipratropium/Albuterol Sulfate [Iprat-Albut 0.5-3(2.5) mg/3 ml] 1 amp NEB TID 05/29/23 Lidocaine [Salonpas] 1 patch TOP DAILY 05/29/23 Linagliptin [Tradjenta] 5 mg PO DAILY 05/29/23 Loratadine [Claritin*] 10 mg PO DAILY 05/29/23 Melatonin 5 mg PO BEDTIME 05/29/23 Metformin HCl [Glucophage*] 850 mg PO BID 05/29/23 Metoprolol Tartrate [Lopressor*] 25 mg PO BID 05/29/23 Multivitamin [Multivitamins] 1 tab PO DAILY 05/29/23 Trazodone HCl 300 mg PO BEDTIME 05/29/23 - Past Medical/Surgical History Diabetic: Yes Past Medical History: Reviewed- Non-Contributory -: CVA X3 -: HTN -: hyperlipidemia -: CHF -: GERD -: dysphagia -: left sided paralysis. -: DM2 -: insomnia -: cognitive communication deficit -: muscle weakness Past Surgical History: Reviewed- Non-Contributory -: fior - Family History Family History: Reviewed- Non-Contributory - Family History Mother -: Hypertension - Social History Smoking Status: Never smoker Alcohol use: No CD- Drugs: No Caffeine use: No Review of Systems is unable to be obtained Physical Examination - Vital Signs Temperature: 98.6 F Blood Pressure: 102/68 Pulse: 149 Respirations: 20 Pulse Ox (%): 98 - Physical Exam General: Alert, Moderate distress, Obese HEENT: Atraumatic, Normocephalic Neck: Supple, No Thyromegaly Respiratory: Diminished, Crackles/rales, Expiratory wheezes Cardiovascular: Other (Tachycardic ), Irregular heart rate/rhythm Capillary refill: <2 Seconds Gastrointestinal: Soft and benign, W/out hepatosplenomegaly Musculoskeletal: No clubbing, No swelling Integumentary: No rashes Neurological: Other (Alert, Awake ) Lymphatics: No axilla or inguinal lymphadenopathy - Studies Laboratory Data (last 24 hrs) 11/04/23 11/04/23 11/04/23 16:07 16:07 16:07 WBC 10.80 Hgb 12.3 L Hct 38.3 L Plt Count 245 PT 12.4 INR 1.13 APTT 30.1 Sodium 139 Potassium 3.8 BUN 12 Creatinine 1.44 H Glucose 171 H Total Bilirubin 0.6 AST 23 ALT 32 Alkaline Phosphatase 63 Microbiology Data (last 24 hrs): 06/08/23 16:07 Nasopharnyx Influenza Type A Antigen Screen - Final 06/08/23 16:07 Nasopharnyx Influenza Type B Antigen Screen - Final Assessment and Plan - Problems (Diagnosis) (1) Sepsis Current Visit: Yes Status: Acute Plan: Obtain cultures Started on IV antibiotics Monitor closely Hold IV fluids because of CHF history Lactic acid elevated will get serial lactic acid levels UA pending Checks x-ray consistent with pulmonary edema/pneumonia Continue antibiotics for now (2) Tachycardia Current Visit: Yes Status: Acute Plan: Monitor undetermined telemetry Telemetry rhythm shows sinus tachycardia for now Patient has a history of atrial fibrillation Possible to start beta-anthony if blood pressure allows We will give albumin for now (3) Acute respiratory failure with hypoxia and hypercapnia Current Visit: Yes Status: Acute Plan: Patient on BiPAP at the time of interview We will get a ABG we will try to wean down Chest x-ray consistent with pulmonary edema/pneumonia Started on bronchodilators (4) Pulmonary edema Current Visit: Yes Status: Acute Plan: Aggressive diuresis We will get an echocardiogram History of CHF Possibly combined systolic/diastolic We will get a cardiology consult (5) Pneumonia Current Visit: Yes Status: Acute Plan: Started on Rocephin and Zithromax Obtain cultures Change antibiotic as per sensitivity (6) Lactic acidosis Current Visit: Yes Status: Acute Plan: Initial lactic acid level is elevated We will get serial lactic acid levels started on antibiotics Could not give IV fluids because of the CHF history (7) Diabetes Current Visit: Yes Status: Chronic Plan: Insulin sliding scale Monitor A1c in a.m. Accu-Chek before every meal and at bedtime (8) History of hypertension Current Visit: Yes Status: Chronic Plan: Monitor closely Antihypertensives on hold for now (9) History of CVA with residual deficit Current Visit: Yes Status: Chronic Plan: Continue home medications and supportive management We will get a PT OT evaluation Discharge Plan: Residential Plan to discharge in: Greater than 2 days - Advance Directives Does patient have a Living Will: No Does patient have a Durable POA for Healthcare: No - Code Status/Comfort Care Code Status: Full Code Physician Review: Patient Assessed, Agree with Above Assessment and Plan Time Spent Managing Pts Care (In Minutes): 48
[2023-06-08] MEDS ORDERED: MORPHINE 2 MG/ML SYR IV PRN (18:32)
[2023-06-08] MEDS ORDERED: ALBUTEROL 2.5 MG/3 ML NEB SOL NEB PRN (18:32)
[2023-06-08] MEDS ORDERED: ACETAMINOPHEN 500 MG TAB PO PRN (18:32)
[2023-06-08] MEDS ORDERED: ONDANSETRON 4 MG/2 ML VIAL IV PRN (18:32)
[2023-06-08 19:03] LABS: Arterial Blood Carboxyhemoglob 1.4 % (0-1.5); Blood Gas Oxyhemoglobin 91.2 % (94-97); Blood O2 Saturation 93.9 % (92-98.5)
[2023-06-08] MEDS: IPRATROPIUM BROM 0.5MG/2.5ML NEB SCH (20:00)
[2023-06-08] MEDS ORDERED: ALBUMIN HUMAN 25% 100 ML IV ONE (20:22)
[2023-06-08] MEDS: INSULIN REGULAR (HUMAN) 100 UNIT/ML SQ SCH (21:00)
[2023-06-08 21:53] VITALS: BMI 44.6
[2023-06-08] MEDS: FUROSEMIDE 40 MG/4 ML VIAL IV SCH (23:08)
[2023-06-08] MEDS: METOPROLOL TAR 25 MG TAB PO SCH (23:09)
[2023-06-08] MEDS: ATORVASTATIN 40 MG TAB PO SCH (23:09)
[2023-06-08] MEDS: DIVALPROEX DR 500MG TAB PO SCH (23:09)
[2023-06-08] MEDS: APIXABAN 2.5 MG TABLET PO SCH (23:10)
[2023-06-08] MEDS: GABAPENTIN 100 MG CAP PO SCH (23:11)
[2023-06-09 01:32] LABS: Specific Gravity 1.012 (1.005-1.030); Urine Bacteria <20 /HPF (<20); Urine Bilirubin NEGATIVE (Negative); Urine Blood Trace (Negative); Urine Clarity Extremely Turbid (Clear); Urine Color Light-Yellow (Yellow); Urine Crystals Unidentified Few /HPF (None Seen); Urine Glucose NEGATIVE (Negative); Urine Mucus Slight /HPF (None Seen); Urine Protein NEGATIVE (Negative); Urine RBC 21-50 /HPF (None Seen); Urine Urobilinogen Normal (Normal); Urine WBC Clump Occasional /HPF (None Seen); Urine pH 5.5 (5.0-7.0)
[2023-06-09] MEDS: IPRATROPIUM BROM 0.5MG/2.5ML NEB SCH ×4 (02:10→20:24)
[2023-06-09] MEDS: INSULIN REGULAR (HUMAN) 100 UNIT/ML SQ SCH ×4 (07:30→20:22)
[2023-06-09] MEDS: LINAGLIPTIN 5 MG PO SCH (09:00)
[2023-06-09] MEDS: DIVALPROEX DR 500MG TAB PO SCH ×2 (09:05→20:24)
[2023-06-09] MEDS: APIXABAN 2.5 MG TABLET PO SCH ×2 (09:06→20:25)
[2023-06-09] MEDS: FUROSEMIDE 40 MG/4 ML VIAL IV SCH ×2 (09:06→16:30)
[2023-06-09] MEDS: GABAPENTIN 100 MG CAP PO SCH ×3 (09:06→20:25)
[2023-06-09] MEDS: METOPROLOL TAR 25 MG TAB PO SCH ×2 (09:06→20:25)
[2023-06-09] MEDS: INSULIN LISPRO 100 UNIT/ML SQ SCH ×3 (09:06→16:30)
--- NOTE | 2023-06-09 12:14 | P.PN ---
Subjective Date of Service: 06/09/23 Chief Complaint: Palpitation Patient reports he feels much better now. BiPAP discontinued. He is tolerating oxygen by nasal cannula and he currently denies any shortness of breath. Physical Examination - Vital Signs Temperature: 98.0 F Blood Pressure: 117/66 Pulse: 92 Respirations: 18 Pulse Ox (%): 93 - Studies Laboratory Data (last 24 hrs) 06/08/23 06/08/23 06/08/23 16:07 16:07 16:07 WBC 10.80 Hgb 12.3 L Hct 38.3 L Plt Count 245 PT 12.4 INR 1.13 APTT 30.1 Sodium 139 Potassium 3.8 BUN 12 Creatinine 1.44 H Glucose 171 H Total Bilirubin 0.6 AST 23 ALT 32 Alkaline Phosphatase 63 Microbiology Data (last 24 hrs): 06/08/23 16:07 Nasopharnyx Influenza Type A Antigen Screen - Final 06/08/23 16:07 Nasopharnyx Influenza Type B Antigen Screen - Final Assessment And Plan - Plan Physical Exam General: Alert, NAD. Obese Neck: Supple, no elevated JVD. Respiratory: Diminished, mild bibasilar crackles/rales, Expiratory wheezes, 1+ bilateral lower extremity edema. Cardiovascular: Irregular heart rate/rhythm, normal heart sounds. Gastrointestinal: Soft and benign, obese, W/out hepatosplenomegaly Musculoskeletal: No clubbing, No swelling Integumentary: Bilateral venous stasis dermatitis. Neurological: No focal motor deficit. Diagnosis Acute respiratory failure with hypoxia and hypercapnia Pulmonary edema Acute on chronic diastolic heart failure Pneumonia DM type II Morbid obesity Hypertension History of CVA with left-sided weakness and dysphagia. Plan Acute on chronic respiratory failure with hypoxia and hypercapnia Acute on chronic diastolic heart failure Pulmonary edema Status post BiPAP Patient weaned down to oxygen by nasal cannula. Continue Lasix Metoprolol for A-fib rate control. Patient is on oxygen at baseline. Multiple hospital admissions for similar reasons. Recent echocardiogram 10 days ago shows normal EF. Bronchodilators. Pneumonia Suspected pneumonia chest imaging. Continue empiric IV antibiotic. Lactic acidosis mildly elevated but patient does not meet criteria for sepsis. Lactic acidosis probably secondary to hypoxia. A-fib with RVR Patient has a history of atrial fibrillation Monitor on telemetry. Continue metoprolol. Blood pressure has been stable. Continue Eliquis Diabetes melitis type II Insulin sliding scale Accu-Chek before every meal and at bedtime Essential hypertension Monitor closely Antihypertensives on hold for now History of CVA with residual deficit Continue home medications and supportive management Discharge Plan: Skilled Nursing Plan to discharge in: Greater than 2 days
[2023-06-09] MEDS: ATORVASTATIN 40 MG TAB PO SCH (23:43)
[2023-06-10] MEDS: IPRATROPIUM BROM 0.5MG/2.5ML NEB SCH ×3 (02:03→14:00)
[2023-06-10] MEDS: INSULIN REGULAR (HUMAN) 100 UNIT/ML SQ SCH ×3 (07:30→16:30)
[2023-06-10] MEDS: LINAGLIPTIN 5 MG PO SCH (09:00)
--- NOTE | 2023-06-10 09:01 | P.DS ---
Admission Date: 06/08/23 Discharge Date: 06/10/23 Disposition: TRANSFER TO RESIDENTIAL Discharge Condition: FAIR Reason for Admission: Palpitation Brief History of Present Illness: 70-year-old AAM with past medical history of atrial fibrillation, CHF, CVA with residual left hemiparesis, diabetes, GERD, hyperlipidemia, hypertension, muscle cramps who is a long-term resident who was transferred to ER with palpitations which has been going on since this morning. Patient denies any chest pain. At the time of interview patient is on BiPAP hence cannot offer any history hence most of the history is obtained from family member who is at the bedside and also with the ER physician. Patient had a recent pneumonia which was treated with Antibiotics denies any fever or chills associated with shortness of breath.. Cough present which is nonproductive. Patient was assessed in the ER and was found to have elevated lactic acid levels and tachycardic. However the x-ray shows signs of pulmonary edema Patient to be admitted for further management UA still pending Hospital Course: Diagnosis Acute respiratory failure with hypoxia and hypercapnia Pulmonary edema Acute on chronic diastolic heart failure Pneumonia DM type II Morbid obesity Hypertension History of CVA with left-sided weakness and dysphagia. Patient admitted to the medical floor and the following medical problems addressed: Acute on chronic respiratory failure with hypoxia and hypercapnia Acute on chronic diastolic heart failure Pulmonary edema Status post BiPAP Patient weaned down to oxygen by nasal cannula. Patient treated with IV Lasix and transition to oral Lasix. Metoprolol for A-fib rate control. Patient is on oxygen at baseline. Multiple hospital admissions for similar reasons. Recent echocardiogram 10 days ago shows normal EF. Patient treated with bronchodilators. Respiratory status has improved to baseline. Patient is currently asymptomatic, vitals are stable and he is deemed stable for discharge. Pneumonia Suspected pneumonia chest imaging. Continue empiric IV antibiotic. Lactic acidosis mildly elevated but patient did not meet criteria for sepsis. Lactic acidosis probably secondary to hypoxia. A-fib with RVR Patient has a history of atrial fibrillation Continued metoprolol. Blood pressure was stable. Continued Eliquis Diabetes melitis type II Managed with insulin sliding scale Essential hypertension Held antihypertensives because patient was normotensive.. Antihypertensives resumed on discharge. History of CVA with residual deficit Continued home medications and supportive measures. Vital Signs/Physical Exam: Temp Pulse Resp BP Pulse Ox 97.9 F 128 H 20 113/69 93 06/10/23 04:00 06/10/23 04:00 06/10/23 04:00 06/10/23 04:00 06/10/23 04:00 General: Alert, In no apparent distress, Obese HEENT: Mucous membr. moist/pink Neck: JVD not distended Respiratory: Clear to auscultation bilaterally, Diminished Cardiovascular: Normal S1 S2, Edema, Irregular heart rate/rhythm Gastrointestinal: Soft and benign, Non-distended, No tenderness Musculoskeletal: Swelling (Lower extremities) Integumentary: Other (Bilateral venous stasis dermatitis) Neurological: Other (Residual left-sided weakness and dysarthria) Laboratory Data at Discharge: WBC 10.80 thou/uL (4.3-10.9) 06/08/23 16:07 Hgb 12.3 g/dL (13.6-17.9) L 06/08/23 16:07 Hct 38.3 % (39.6-49.0) L 06/08/23 16:07 Plt Count 245 thou/uL (152-406) 06/08/23 16:07 PT 12.4 SECONDS (9.5-12.5) 06/08/23 16:07 INR 1.13 06/08/23 16:07 APTT 30.1 SECONDS (24.3-36.9) 06/08/23 16:07 Sodium 139 mEq/L (136-145) 06/08/23 16:07 Potassium 3.8 mEq/L (3.5-5.1) 06/08/23 16:07 BUN 12 mg/dL (7-18) 06/08/23 16:07 Creatinine 1.44 mg/dL (0.70-1.30) H 06/08/23 16:07 Glucose 171 mg/dL (74-106) H 06/08/23 16:07 Total Bilirubin 0.6 mg/dL (0.2-1.0) 06/08/23 16:07 AST 23 U/L (15-37) 06/08/23 16:07 ALT 32 U/L (16-61) 06/08/23 16:07 Alkaline Phosphatase 63 U/L (45-117) 06/08/23 16:07 Home Medications: Acetaminophen [Tylenol] 650 mg PO Q6HP PRN 05/29/23 Apixaban [Eliquis *] 5 mg PO BID 05/29/23 Atorvastatin Calcium [Lipitor] 40 mg PO BEDTIME 05/29/23 Baclofen 5 mg PO TID 05/29/23 Cholecalciferol (Vitamin D3) [Vitamin D3] 2,000 unit PO DAILY 05/29/23 Divalproex Sodium 1,000 mg PO BID 05/29/23 Docusate [Colace Cap*] 100 mg PO DAILY 05/29/23 Fluticasone [Flonase 50MCG Nasal [place]*] 2 spr DANA DAILY 05/29/23 Gabapentin 100 mg PO TID 05/29/23 Insulin Glargine,Hum.rec.anlog [Lantus] 10 unit SQ BEDTIME 05/29/23 Insulin Lispro [Humalog] 5 unit SQ TIDWM 05/29/23 Ipratropium/Albuterol Sulfate [Iprat-Albut 0.5-3(2.5) mg/3 ml] 1 amp NEB TID 05/29/23 Lidocaine [Salonpas] 1 patch TOP DAILY 05/29/23 Linagliptin [Tradjenta] 5 mg PO DAILY 05/29/23 Loratadine [Claritin*] 10 mg PO DAILY 05/29/23 Melatonin 5 mg PO BEDTIME 05/29/23 Metformin HCl [Glucophage*] 850 mg PO BID 05/29/23 Metoprolol Tartrate [Lopressor*] 25 mg PO BID 05/29/23 Multivitamin [Multivitamins] 1 tab PO DAILY 05/29/23 Trazodone HCl 300 mg PO BEDTIME 05/29/23 Furosemide [Lasix*] 40 mg PO DAILY #60 tab 06/10/23 New Medications: Furosemide [Lasix*] 40 mg PO DAILY #60 tab Physician Discharge Instructions: PROBLEM: Sepsis, Tachycardia GOAL: Clear understanding of disease process INSTRUCTIONS: Follow up with PCP in 1-2 weeks. Call to make an appointment. Returning to [facility]. Return to ER if symptoms worsen. Diet: ADA Activity:Bedrest IMMUNIZATION Influenza Vaccine Indicated: No Influenza Vaccine Given: Date Given: Pneumonia Vaccine Indicated: No Pneumonia Vaccine Given: Date Given: Diet: ADA Followup: NONE,NONE [Primary Care Provider] - 1 Week Time spent managing pt's care (in minutes): 33
[2023-06-10] MEDS: APIXABAN 2.5 MG TABLET PO SCH (09:42)
[2023-06-10] MEDS: GABAPENTIN 100 MG CAP PO SCH ×2 (09:43→13:12)
[2023-06-10] MEDS: DIVALPROEX DR 500MG TAB PO SCH (09:43)
[2023-06-10] MEDS: METOPROLOL TAR 25 MG TAB PO SCH (09:43)
[2023-06-10] MEDS: INSULIN LISPRO 100 UNIT/ML SQ SCH ×3 (09:44→17:00)
[2023-06-10] MEDS: FUROSEMIDE 40 MG/4 ML VIAL IV SCH ×2 (10:01→17:24)
[2023-06-10 14:20] VITALS: O2SAT 95
[2023-06-10 17:25] VITALS: BP 136/80
[2023-06-10 19:29] VITALS: TEMP 98
== END 2023-06-10 18:17 | DRG 189 ==
LOC: ER 15:21 → ERHOLD 18:33 → 2ND 19:47
PROVIDERS: ADMIT Family Medicine; ATTEND Internal Medicine
PROC: 5A09457 Assistance with Respiratory Ventilation, 24-96 Consecutive Hours, Continuous Positive Airway Pressure (ICD-10-PCS; principal; 2023-06-08)
DX: J96.21 Acute and chronic respiratory failure with hypoxia (principal); I50.33 Acute on chronic diastolic (congestive) heart failure; J18.9 Pneumonia, unspecified organism; Z68.41 Body mass index [BMI] 40.0-44.9, adult; E87.20 Acidosis, unspecified; I69.354 Hemiplegia and hemiparesis following cerebral infarction affecting left non-dominant side; J96.22 Acute and chronic respiratory failure with hypercapnia; I11.0 Hypertensive heart disease with heart failure; E66.01 Morbid (severe) obesity due to excess calories; I48.91 Unspecified atrial fibrillation; E11.9 Type 2 diabetes mellitus without complications; E78.5 Hyperlipidemia, unspecified; K21.9 Gastro-esophageal reflux disease without esophagitis; I69.391 Dysphagia following cerebral infarction; R13.10 Dysphagia, unspecified; Z79.4 Long term (current) use of insulin; Z11.52 Encounter for screening for COVID-19; Z79.01 Long term (current) use of anticoagulants; Z79.84 Long term (current) use of oral hypoglycemic drugs; Z79.899 Other long term (current) drug therapy
CPT/HCPCS: 36415; 36600; 71045; 80053; 81001; 82805; 82947; 83605; 83880; 84484; 85025; 85610; 85730; 87040; 87086; 87088; 87804; 87811; 93005; 94660; 94760; 96374; 96375; 99285; J0696; J1160; J1815; J1940; J7040; J7050; J7613; J7644; P9047

== ENCOUNTER 2023-10-17 13:13 | Inpatient (IN) | payer OTHER ==
--- NOTE | 2023-10-17 13:47 | RAD REPORT ---
EXAM DESCRIPTION: CT - Head Brain Wo Cont - 10/17/2023 1:32 pm CLINICAL HISTORY: ams Headache, drowsiness COMPARISON: Thyroid Para Parotid Gland dated 07/22/2019No comparisonsLumbar Spine 3 Views dated 07/07; SPINE LUMBAR W OBLIQUE dated 05/19/2015No comparisonsHead Brain Wo Cont dated 12/04/2020; Head Brain Wo Cont dated 12/12/2017 TECHNIQUE: All CT scans are performed using dose optimization technique as appropriate and may inclu de automated exposure control or mA/KV adjustment according to patient size. FINDINGS: No intracranial hemorrhage, hydrocephalus or extra-axial fluid collection.Prominent gliosi s right middle cerebral artery and right anterior cerebral artery territory compatible with old infar ction.No areas of brain edema or evidence of midline shift. Air-fluid levels are seen in both maxillary antra, ethmoid air cells. The calvarium is intact. IMPRESSION: No acute intracranial abnormality. Acute sinusitis is possible of the maxillary antra.
--- NOTE | 2023-10-17 13:48 | RAD REPORT ---
EXAM DESCRIPTION: RAD - Chest Single View - 10/17/2023 1:39 pm CLINICAL HISTORY: ams Chest pain. COMPARISON: <Comparisons> FINDINGS: Portable technique limits examination quality. Mild pulmonary edema suspected. The heart is moderately enlarged. No displaced fractures. IMPRESSION: Mild CHF.
[2023-10-17 13:54] LABS: Absolute Lymphocytes (CBC) 2.3 K/uL (0.7-4.9); Absolute Monocytes 0.3 K/uL (0.1-1.3); Absolute Neutrophil 2.4 K/uL (1.8-8.0); Basophils % 0.9 % (0-1.3); Eosinophils % 0.6 % (0-4.4); Hematocrit 34.4 % (39.6-49.0); Hemoglobin 11.2 g/dL (13.6-17.9); Lymphocytes % 44.6 % (15.3-44.8); MCH 29.4 pg (27.0-35.0); MCHC 32.7 g/dL (32.0-36.0); MPV 8.3 fL (7.6-11.3); Monocytes % 6.4 % (3.3-12.3); Neutrophils % 47.5 % (41.7-73.7); Nucleated Red Blood Cells % 0.1 % (0-0); Platelets 153 thou/uL (152-406); RBC Red Blood Cell Count 3.82 M/uL (4.33-5.43); Red Cell Distribution Width 14.8 % (12.1-15.2)
[2023-10-17 14:16] LABS: Specific Gravity 1.015 (1.005-1.030); Sqamous Epithelial <5 /HPF (None Seen); Urine Bacteria >50 /HPF (<20); Urine Bilirubin NEGATIVE (Negative); Urine Blood Negative (Negative); Urine Clarity Turbid (Clear); Urine Color Yellow (Yellow); Urine Culture Reflex Order REFLEXED; Urine Glucose NEGATIVE (Negative); Urine Ketones NEGATIVE (Negative); Urine Micro Reflex YN NO BILL MICROSCOPIC; Urine Nitrite 2+ (Negative); Urine Protein NEGATIVE (Negative); Urine RBC <5 /HPF (None Seen); Urine Urobilinogen 2+ (Normal); Urine pH 5.5 (5.0-7.0)
[2023-10-17 14:18] LABS: Albumin 2.6 g/dL (3.4-5.0); Albumin/Globulin Ratio 0.5 (1.1-1.8); Anion Gap 7.9 mEq/L (5.0-15.0); Bilirubin Direct 0.3 mg/dL (0-0.2); Bilirubin Indirect, Calculated 0.4 mg/dL (0.2-0.8); Bilirubin Total 0.7 mg/dL (0.2-1.0); Globulin 4.9 g/dL (2.3-3.5); Magnesium 1.8 mg/dL (1.6-2.4); Potassium 3.9 mEq/L (3.5-5.1); Protein, Total 7.5 g/dL (6.4-8.2)
[2023-10-17 14:22] LABS: Troponin High Sensitivity 164.3 pg/mL (<58.9)
--- NOTE | 2023-10-17 16:26 | EDPHYS ---
Physician Documentation [facility] Name: Sumanth Rodriguez Age: 73 yrs Sex: Male : 1950 Arrival Date: 10/17/2023 Time: 13:13 Bed 4 Private MD: ED Physician Kwame Argueta HPI: 10/16 16:05 This 73 yrs old Black Male presents to ER via EMS with complaints of Altered Mental rt Status. 16:05 Patient presents to the ED from [facility] for reported altered mental status. rt Patient speaking in yes or no answers only, cannot further elaborate. Unclear of the chronicity of the symptoms. Patient states that he feels well. Denies other acute complaints, symptoms are moderate in severity, no other aggravating alleviating factors.. Historical: - Allergies: 13:22 No Known Allergies; kc6 - PMHx: 13:22 Atrial Fib; CHF; constipation; CVA; Diabetes - NIDDM; DYSPHAGIA; GERD; hemiplegia left kc6 side; Hyperlipidemia; Hypertension; muscle spasms; - Immunization history:: Adult Immunizations up to date. - Social history:: Smoking status: Patient denies any tobacco usage or history of. ROS: 16:05 Unable to obtain ROS due to altered mental status, rt Exam: 16:05 Constitutional: This is a well developed, well nourished patient who is awake, alert, rt and in no acute distress. Head/Face: Normocephalic, atraumatic. Chest/axilla: Normal chest wall appearance and motion. Nontender with no deformity. No lesions are appreciated. Cardiovascular: Regular rate and rhythm with a normal S1 and S2. No gallops, murmurs, or rubs. Normal PMI, no JVD. No pulse deficits. Respiratory: Lungs have equal breath sounds bilaterally, clear to auscultation and percussion. No rales, rhonchi or wheezes noted. No increased work of breathing, no retractions or nasal flaring. Abdomen/GI: Soft, non-tender, with normal bowel sounds. No distension or tympany. No guarding or rebound. No evidence of tenderness throughout. Skin: Warm, dry with normal turgor. Normal color with no rashes, no lesions, and no evidence of cellulitis. MS/ Extremity: Pulses equal, no cyanosis. Neurovascular intact. Full, normal range of motion. 16:05 ECG was reviewed by the Attending Physician. 16:05 Neuro: Positive speech, no apparent dysarthria, moves all 4 extremities equally, no cranial nerve deficits, Vital Signs: 13:21 BP 113 / 62; Pulse 84; Resp 16 S; Temp 98.3(O); Pulse Ox 97% on 3 lpm NC; Weight 125.19 kc6 kg (M); Height 5 ft. 9 in. (R); 14:30 BP 121 / 66; Pulse 79; Resp 16 S; Pulse Ox 100% on 3 lpm NC; kc6 15:54 BP 113 / 87; Pulse 85; Resp 19 S; Pulse Ox 100% on 3 lpm NC; kc6 17:28 BP 121 / 73; Pulse 71; Resp 20 S; Pulse Ox 97% on 3 lpm NC; kc6 13:21 Body Mass Index 40.76 (125.19 kg, 175.26 cm) kc6 MDM: 13:20 Patient medically screened. rt 16:25 Differential Diagnosis: AMS, NSTEMI, UTI, intracranial hemorrhage. Data reviewed: vital rt signs, nurses notes, lab test result(s), EKG, radiologic studies. Consideration of Admission/Observation Patient was admitted/placed on observation. Management of patient was discussed with the following: Hospitalist: Agrees to admit. I considered the following discharge prescriptions or medication management in the emergency department Medications were administered in the Emergency Department. See MAR. Independent interpretation of the following test(s) in the Emergency Department CT Scan: My interpretation is No intracranial hemorrhage seen on interpretation of CT scan images. Care significantly affected by the following chronic conditions: Prior CVA. Counseling: I had a detailed discussion with the patient and/or guardian regarding the historical points, exam findings, and any diagnostic results supporting the discharge/admit diagnosis, lab results, radiology results, the need for further work-up and treatment in the hospital. Response to treatment: There is no appreciated change of the patient's symptoms at this time. 10/16 13:20 Order name: Basic Metabolic Panel; Complete Time: 15:55 rt 10/16 13:20 Order name: CBC with Diff; Complete Time: 15:55 rt 10/16 13:20 Order name: LFT's; Complete Time: 15:55 rt 10/16 13:20 Order name: Magnesium; Complete Time: 15:55 rt 10/16 13:20 Order name: Troponin HS; Complete Time: 15:55 rt 10/16 13:20 Order name: UAM; Complete Time: 15:55 rt 10/16 14:23 Order name: Urine Culture EDMS 10/16 13:20 Order name: XRAY Chest (1 view); Complete Time: 13:54 rt 10/16 13:20 Order name: CT Head Brain wo Cont; Complete Time: 13:54 rt 10/16 13:20 Order name: EKG; Complete Time: 13:21 rt 10/16 13:20 Order name: Cardiac monitoring; Complete Time: 14:00 rt 10/16 13:20 Order name: EKG - Nurse/Tech; Complete Time: 14:00 rt 10/16 13:20 Order name: IV Saline Lock; Complete Time: 14:00 rt 10/16 13:20 Order name: Labs collected and sent; Complete Time: 14:00 rt 10/16 13:20 Order name: O2 Per Protocol; Complete Time: 13:24 rt 10/16 13:20 Order name: O2 Sat Monitoring; Complete Time: 13:24 rt EC:05 Rate is 78 beats/min. Rhythm is regular, Normal Sinus Rhythm with No ectopy. QRS [place] rt is Normal. PA interval is normal. QRS interval is normal. QT interval is normal. No Q waves. Clinical impression: NSR w/ Non-specific ST/T Changes. Administered Medications: 17:02 Drug: Rocephin IV 2 grams IV at calculated rate once; Given slow IV push per pharmarcy kc6 instructions Route: IV; Rate: calculated rate; Site: right wrist; 17:34 Follow up: Response: No adverse reaction; IV Status: Completed infusion; IV Intake: kc6 100ml Disposition Summary: 10/17/23 16:25 Hospitalization Ordered Notes: Hospitalization Status: Observation rt Provider: Dalton Sandoval rt Condition: Stable rt Problem: new rt Symptoms: are unchanged rt Bed/Room Type: Standard rt Location: Telemetry/MedSurg (Inpatient)(10/17/23 17:11) bc6 Room Assignment: 405(10/17/23 17:11) bc6 Diagnosis - Altered mental status rt - Confusion rt - Elevated troponin rt Forms: - Medication Reconciliation Form rt - SBAR form rt - Leadership Thank You Letter rt Signatures: Dispatcher [employer] Hoda Omalley RN RN kc6 Kwame Argueta MD MD rt Jennifer Lopez bc6 Corrections: (The following items were deleted from the chart) : 16:25 Telemetry/MedSurg (observation) rt 6 17: 16:25 rt 6
--- NOTE | 2023-10-17 16:26 | ER ---
Nurse's Notes [facility] Name: Sumanth Rodriguez Age: 73 yrs Sex: Male : 1950 Arrival Date: 10/17/2023 Time: 13:13 Bed 4 Private MD: Diagnosis: Altered mental status;Confusion;Elevated troponin Presentation: 10/16 13:21 Chief complaint: EMS states: pt is from [facility] and they were toned out for kc6 decreased consciousness and low SPO2. pt is A\T\O x4 upon EMS arrival and SPO2 is 97% on 3L via NC which pt normally wears. Coronavirus screen: At this time, the client does not indicate any symptoms associated with coronavirus-19. Ebola Screen: No symptoms or risks identified at this time. Initial Sepsis Screen: Does the patient meet any 2 criteria? No. Patient's initial sepsis screen is negative. Does the patient have a suspected source of infection? No. Patient's initial sepsis screen is negative. Risk Assessment: Do you want to hurt yourself or someone else? Patient reports no desire to harm self or others. Onset of symptoms was October 17, 2023. 13:21 Method Of Arrival: EMS: [facility] kc6 13:21 Acuity: TORY 3 kc6 Triage Assessment: 13:22 General: Appears in no apparent distress. comfortable, well groomed, well developed, kc6 Behavior is calm, cooperative, appropriate for age. Pain: Denies pain. Neuro: Level of Consciousness is awake, alert, obeys commands, Oriented to person, place, time, situation, Appropriate for age. Historical: - Allergies: 13:22 No Known Allergies; kc6 - PMHx: 13:22 Atrial Fib; CHF; constipation; CVA; Diabetes - NIDDM; DYSPHAGIA; GERD; hemiplegia left kc6 side; Hyperlipidemia; Hypertension; muscle spasms; - Immunization history:: Adult Immunizations up to date. - Social history:: Smoking status: Patient denies any tobacco usage or history of. Screenin:23 [facility] ED Fall Risk Assessment (Adult) History of falling in the last 3 months, kc6 including since admission No falls in past 3 months (0 pts) Confusion or Disorientation No (0 pts) Intoxicated or Sedated No (0 pts) Impaired Gait Yes (1 pt) Mobility Assist Device Used Yes (1 pt) Altered Elimination No (0 pt) Score/Fall Risk Level 0 - 2 = Low Risk. Abuse screen: Denies threats or abuse. Denies injuries from another. Nutritional screening: No deficits noted. Tuberculosis screening: No symptoms or risk factors identified. Assessment: 13:21 Reassessment: please see triage. kc6 14:21 Reassessment: Patient appears in no apparent distress at this time. No changes from [facility] previously documented assessment. Patient and/or family updated on plan of care and expected duration. Pain level reassessed. Patient is alert, oriented x 3, equal unlabored respirations, skin warm/dry/pink. 15:21 Reassessment: Patient appears in no apparent distress at this time. No changes from kc6 previously documented assessment. Patient and/or family updated on plan of care and expected duration. Pain level reassessed. Patient is alert, oriented x 3, equal unlabored respirations, skin warm/dry/pink. 17:27 Reassessment: Patient appears in no apparent distress at this time. No changes from 6 previously documented assessment. Patient and/or family updated on plan of care and expected duration. Pain level reassessed. Patient is alert, oriented x 3, equal unlabored respirations, skin warm/dry/pink. Vital Signs: 13:21 BP 113 / 62; Pulse 84; Resp 16 S; Temp 98.3(O); Pulse Ox 97% on 3 lpm NC; Weight 125.19 kc6 kg (M); Height 5 ft. 9 in. (R); 14:30 BP 121 / 66; Pulse 79; Resp 16 S; Pulse Ox 100% on 3 lpm NC; kc6 15:54 BP 113 / 87; Pulse 85; Resp 19 S; Pulse Ox 100% on 3 lpm NC; kc6 17:28 BP 121 / 73; Pulse 71; Resp 20 S; Pulse Ox 97% on 3 lpm NC; kc6 13:21 Body Mass Index 40.76 (125.19 kg, 175.26 cm) kc6 ED Course: 13:19 Patient arrived in ED. ll1 13:19 Kwame Argueta MD is Attending Physician. rt 13:22 Triage completed. kc6 13:22 Arm band placed on. kc6 13:23 Patient has correct armband on for positive identification. Placed in gown. Bed in low kc6 position. Call light in reach. Side rails up X2. Client placed on continuous cardiac and pulse oximetry monitoring. NIBP monitoring applied. 13:23 Oxygen administration via nasal cannula \T\ 3L/min. kc6 13:30 Hoda Mcelroy, RN is Primary Nurse. kc6 13:33 CT Head Brain wo Cont In Process Unspecified. EDMS 13:41 XRAY Chest (1 view) In Process Unspecified. EDMS 14:00 Warm blanket given. aw1 14:00 Door closed. Noise minimized. Visitors limited. Warm blanket given. Pillow given. Head kc6 of bed elevated. 14:00 Straight cath inserted, using sterile technique, 16 Fr. Specimen obtained. Returned kc6 clear yellow urine. Patient tolerated well. Inserted saline lock: 22 gauge in right wrist, using aseptic technique. Blood collected. 14:00 assisted nurse with straight cath insertion. aw1 14:26 Notified ED physician of a critical lab result(s). troponin 164.3, Informed Dr. julian Argueta. 16:24 Dalton Sandoval MD is Hospitalizing Provider. rt Administered Medications: 17:02 Drug: Rocephin IV 2 grams IV at calculated rate once; Given slow IV push per pharmarcy kc6 instructions Route: IV; Rate: calculated rate; Site: right wrist; 17:34 Follow up: Response: No adverse reaction; IV Status: Completed infusion; IV Intake: kc6 100ml Intake: 17:34 IV: 100ml; Total: 100ml. kc6 Outcome: 16:25 Decision to Hospitalize by Provider. rt 18:09 Patient left the ED. kc6 Signatures: Dispatcher [employer] Ld Jalloh, WARREN [email or web address] Hoda Mcelroy, RN RN [email or web address] Kwame Argueta MD MD rt Rebecca Iglesias aw1
[2023-10-17] MEDS ORDERED: CEFTRIAXONE 2000 MG/VIAL ONE (16:53)
[2023-10-17] MEDS ORDERED: NA CHLORIDE 0.9% 100 ML ONE (16:53)
--- NOTE | 2023-10-17 17:11 | P.HP ---
Certification for Inpatient Patient admitted to: Inpatient With expected LOS: >2 Midnights Patient will require the following post-hospital care: None Practitioner: I am a practitioner with admitting privileges, knowledge of patient current condition, hospital course, and medical plan of care. Services: Services provided to patient in accordance with Admission requirements found in Title 42 Section 412.3 of the Code of Federal Regulations Patient History Date of Service: 10/17/23 Reason for admission: UTI, AMS, elevated troponin History of Present Illness: 73-year-old male with history of atrial fibrillation on chronic anticoagulation, chronic diastolic congestive heart failure, previous CVA with residual left hemiparesis, insulin-dependent diabetes, GERD, hyperlipidemia, hypertension, schizoaffective disorder/BPD, CKD presents emergency department for chief complaint of altered mental status. Patient is a resident of [facility] and was sent over for decreased level of consciousness. Patient was evaluated in the emergency department his labs were significant for hemoglobin 9.2 hematocrit 34.4 bicarb 34 creatinine 1.4 GFR 53 calcium 7.8 high sensitive troponin 164.3 albumin 2.6 UA with 2+ nitrite, leuk esterase, bacteria concerning for UTI. Chest x-ray was obtained which revealed mild CHF pattern, CT head without contrast was negative for acute findings. ED provider wishes to admit for AMS, UTI, elevated troponin Allergies No Known Allergies Allergy (Verified 05/28/23 21:44) Home Medications: Acetaminophen [Tylenol] 650 mg PO Q6HP PRN 05/29/23 Apixaban [Eliquis *] 5 mg PO BID 05/29/23 Atorvastatin Calcium [Lipitor] 40 mg PO BEDTIME 05/29/23 Baclofen 5 mg PO TID 05/29/23 Cholecalciferol (Vitamin D3) [Vitamin D3] 2,000 unit PO DAILY 05/29/23 Divalproex Sodium 1,000 mg PO BID 05/29/23 Docusate [Colace Cap*] 100 mg PO DAILY 05/29/23 Fluticasone [Flonase 50MCG Nasal [place]*] 2 spr DANA DAILY 05/29/23 Gabapentin 100 mg PO TID 05/29/23 Insulin Glargine,Hum.rec.anlog [Lantus] 10 unit SQ BEDTIME 05/29/23 Insulin Lispro [Humalog] 5 unit SQ TIDWM 05/29/23 Ipratropium/Albuterol Sulfate [Iprat-Albut 0.5-3(2.5) mg/3 ml] 1 amp NEB TID 05/29/23 Lidocaine [Salonpas] 1 patch TOP DAILY 05/29/23 Linagliptin [Tradjenta] 5 mg PO DAILY 05/29/23 Loratadine [Claritin*] 10 mg PO DAILY 05/29/23 Melatonin 5 mg PO BEDTIME 05/29/23 Metformin HCl [Glucophage*] 850 mg PO BID 05/29/23 Metoprolol Tartrate [Lopressor*] 25 mg PO BID 05/29/23 Multivitamin [Multivitamins] 1 tab PO DAILY 05/29/23 Trazodone HCl 300 mg PO BEDTIME 05/29/23 Furosemide [Lasix*] 40 mg PO DAILY #60 tab 06/10/23 - Past Medical/Surgical History Diabetic: Yes -: CVA X3 -: HTN -: hyperlipidemia -: CHF -: GERD -: dysphagia -: left sided paralysis. -: DM2 -: insomnia -: cognitive communication deficit -: muscle weakness -: fior Psychosocial/ Personal History: Resident of [facility] - Family History Mother -: Hypertension - Social History Alcohol use: No CD- Drugs: No Caffeine use: No Place of Residence: Residential Review of Systems is unable to be obtained Physical Examination - Physical Exam General: Alert, In no apparent distress, Oriented x2, Obese HEENT: Atraumatic, PERRLA, Mucous membr. moist/pink Neck: Supple, 2+ carotid pulse no bruit, No LAD Respiratory: Clear to auscultation bilaterally, Normal air movement Cardiovascular: Regular rate/rhythm, Normal S1 S2 Gastrointestinal: Normal bowel sounds, No tenderness Musculoskeletal: No tenderness Integumentary: No rashes Neurological: Normal speech, Normal tone, Normal affect, Abnormal strength (Left sided weakness) - Studies Laboratory Data (last 24 hrs) 10/17/23 10/17/23 13:45 13:45 WBC 5.10 Hgb 11.2 L Hct 34.4 L Plt Count 153 Sodium 138 Potassium 3.9 BUN 17 Creatinine 1.40 H Glucose 98 Magnesium 1.8 Total Bilirubin 0.7 AST 41 H ALT 34 Alkaline Phosphatase 43 L Assessment and Plan - Plan Assessment: UTI Metabolic encephalopathy secondary to UTI Atrial fibrillation on chronic anticoagulation Chronic diastolic congestive heart failure Previous CVA with residual left hemiparesis Insulin-dependent diabetes mellitus type II GERD Hyperlipidemia Hypertension Schizoaffective disorder/BPD CKD 3 Plan: UTI Metabolic encephalopathy secondary to UTI Sent for urine culture Continue with IV Rocephin Monitor CBC daily, monitor for fevers Mental status seems to be improving, currently oriented x 2 No SIRS criteria present on admission Atrial fibrillation on chronic anticoagulation Metoprolol, Eliquis continued Chronic diastolic congestive heart failure Metoprolol, Lasix continued Previous CVA with residual left hemiparesis Noted Home meds continued Insulin-dependent diabetes mellitus type II Home medications continued ACHS Accu-Chek, sinus insulin GERD Hyperlipidemia Hypertension Schizoaffective disorder/BPD Home medications continued CKD 3 Monitor renal function daily DVT PPX:Eliquis Code status:Full Discharge Plan: Residential Plan to discharge in: Greater than 2 days - Advance Directives Does patient have a Living Will: No Does patient have a Durable POA for Healthcare: No - Code Status/Comfort Care Code Status Assessed: Yes (full) Critical Care: No Time Spent Managing Pts Care (In Minutes): 70
[2023-10-17] MEDS ORDERED: ACETAMINOPHEN 325 MG TABLET PO PRN (18:26)
[2023-10-17 18:46] VITALS: BMI 40.6
[2023-10-17] MEDS: FUROSEMIDE 40 MG TABLET PO SCH (19:09)
[2023-10-17] MEDS: DIVALPROEX DR 500MG TAB PO SCH (20:23)
[2023-10-17] MEDS: METOPROLOL TAR 25 MG TAB PO SCH (20:23)
[2023-10-17] MEDS: TRAZODONE 150 MG TAB PO SCH (20:23)
[2023-10-17] MEDS: Enoxaparin 120 MG/0.8 ML SYR SQ SCH (20:23)
[2023-10-17] MEDS: BACLOFEN 10 MG TAB PO SCH (20:24)
[2023-10-17] MEDS: GABAPENTIN 100 MG CAP PO SCH (20:24)
[2023-10-17] MEDS: MELATONIN 5 MG TABLET PO SCH (20:24)
[2023-10-17] MEDS: ATORVASTATIN 40 MG TAB PO SCH (20:25)
[2023-10-17] MEDS: INSULIN REGULAR (HUMAN) 100 UNIT/ML SQ SCH (20:25)
[2023-10-17] MEDS ORDERED: HOME MED 1 EA UNK (Trazodone Hcl [Trazodone Hcl] 100 MG Tablet) PO SCH (21:00)
[2023-10-17] MEDS ORDERED: HOME MED 1 EA UNK (Baclofen [Baclofen] 5 MG Tablet) PO SCH (21:00)
[2023-10-17] MEDS: INSULIN GLARGINE 100 UNIT/ML SQ SCH (21:40)
[2023-10-18 04:10] LABS: Absolute Lymphocytes (CBC) 2.2 K/uL (0.7-4.9); Absolute Monocytes 0.4 K/uL (0.1-1.3); Absolute Neutrophil 2.4 K/uL (1.8-8.0); Basophils % 0.3 % (0-1.3); Eosinophils % 0.9 % (0-4.4); Hematocrit 34.1 % (39.6-49.0); Hemoglobin 11.2 g/dL (13.6-17.9); Lymphocytes % 44.2 % (15.3-44.8); MCH 29.5 pg (27.0-35.0); MCHC 32.9 g/dL (32.0-36.0); MCV 89.7 fL (80-100); MPV 8.9 fL (7.6-11.3); Monocytes % 7.1 % (3.3-12.3); Neutrophils % 47.5 % (41.7-73.7); Nucleated Red Blood Cells % 0.2 % (0-0); Platelets 145 thou/uL (152-406); Red Cell Distribution Width 15.1 % (12.1-15.2)
[2023-10-18 04:37] LABS: Albumin 2.6 g/dL (3.4-5.0); Albumin/Globulin Ratio 0.6 (1.1-1.8); Anion Gap 5.5 mEq/L (5.0-15.0); Bilirubin Total 0.7 mg/dL (0.2-1.0); Globulin 4.7 g/dL (2.3-3.5); Magnesium 1.8 mg/dL (1.6-2.4); Potassium 3.5 mEq/L (3.5-5.1); Protein, Total 7.3 g/dL (6.4-8.2); Thyroid Stimulating Hormone 1.85 uIU/mL (0.358-3.740)
[2023-10-18] MEDS: POTASSIUM CL SA 10 MEQ TAB PO ONE ×2 (05:07→08:44)
[2023-10-18] MEDS: METFORMIN HCL 850 MG TAB PO SCH (08:42)
[2023-10-18] MEDS: DOCUSATE NA 100 MG CAP PO SCH (08:42)
[2023-10-18] MEDS: FLUTICASONE 50MCG NASAL SPRAY NAS SCH (08:43)
[2023-10-18] MEDS: CEFTRIAXONE 1,000 MG in NA CHLORIDE 0.9% 50 ML IVPB SCH (08:44)
--- NOTE | 2023-10-18 12:38 | P.PN ---
Date of Service: 10/18/23 Subjective: Much more alert, oriented today Denies any specific complaints No acute events overnight ROS: 10 point ROS as noted above, otherwise negative Physical exam GEN: Alert, oriented, NAD HEENT: Normal conjunctiva, sclera anicteric CV: Regular rate and rhythm, no edema Pulm: Nonlabored respirations on room air ABD: Soft, nontender, nondistended MSK: No joint tenderness Integumentary: No rashes Neuro: Normal speech, normal affect Vitals reviewed Assessment: UTI Metabolic encephalopathy secondary to UTI Atrial fibrillation on chronic anticoagulation Chronic diastolic congestive heart failure Previous CVA with residual left hemiparesis Insulin-dependent diabetes mellitus type II GERD Hyperlipidemia Hypertension Schizoaffective disorder/BPD CKD 3 Plan: UTI Metabolic encephalopathy secondary to UTI Sent for urine culture-follow Continue with IV Rocephin Monitor CBC daily, monitor for fevers Mental status seems to be improving, currently oriented x 3 No SIRS criteria present on admission Await urine culture Atrial fibrillation on chronic anticoagulation Metoprolol, Eliquis continued Chronic diastolic congestive heart failure Metoprolol, Lasix continued Previous CVA with residual left hemiparesis Noted Home meds continued Insulin-dependent diabetes mellitus type II Home medications continued ACHS Accu-Chek, sinus insulin GERD Hyperlipidemia Hypertension Schizoaffective disorder/BPD Home medications continued CKD 3 Monitor renal function daily DVT PPX:Eliquis Code status:Full Discharge Plan: Halfway Plan to discharge in: Greater than 2 days Time Spent Managing Pts Care (In Minutes): 35
--- NOTE | 2023-10-18 17:24 | EKG ---
Test Date: 2023-10-17 Test Time: 13:29:54 Transportation Attendant: JUAN MEASUREMENT RESULTS: Intervals: Rate: 78 [place]: 182 QRSD: 90 QT: 392 QTc: 446 [place]: P: 74 [place]: 182 QRS: 82 T: 77 INTERPRETIVE STATEMENTS: Normal sinus rhythm Nonspecific T wave abnormality Abnormal ECG Compared to ECG 06/08/2023 16:56:42 T-wave abnormality now present Sinus tachycardia no longer present Electronically Signed On 10-18-23 17:20:40 CDT by Louis Lopez
--- NOTE | 2023-10-18 21:10 | CON ---
Date of Consultation: 10/18/2023 Reason For Consultation: Elevated troponin. History Of Present Illness: 73-year-old male, very poor historian. Most part of the information gat hered from the chart. He has history of atrial fibrillation and congestive heart failure, CVA with l eft-sided hemiparesis, diabetes, hypertension, schizophrenia, chronic kidney disease, presented with altered mental status. He was sent from [facility] because of decreased level of consc iousness. I evaluated him by bedside. I could not get a good history from him, but he denies having any chest pain. Past Medical History: As outlined above in the HPI. Medications: Refer consult sheet for detailed list. Allergies: NO KNOWN DRUG ALLERGIES. Family History: No premature coronary artery disease or cancer. Social History: Does not smoke or drink. Does not use any drugs. Review of Systems: All systems reviewed are negative except as mentioned in HPI. Physical Examination: VITAL SIGNS: Reviewed. Head and Neck: Pupils are equal, reactive to light. Intact eye movements. No JVD. No cervical lym phadenopathy. Neck: Supple. Thyroid is not enlarged. Lungs: Clear to auscultation bilaterally. No rhonchi, wheezing, or crackles. No accessory muscle u se. Heart: Regular. No extra sounds. Abdomen: Soft, nontender. Bowel sounds positive. No organomegaly. No masses or hernia. No rigidi ty or rebound. Extremities: No clubbing, cyanosis. Intact pulses. Skin: No rash noted. Neurologic: Alert, awake with confusion. No new focal deficits appreciated. Lymph Nodes: No cervical or axillary lymphadenopathy. Investigations: Urinalysis showed significant urine tract infection. BUN is 14; creatinine 1.32, do wn from 1.40. Troponin peaked at 164 and is coming down and his hemoglobin is 11.2. Assessment/recommendation: 1.Elevated troponin. No chest pain. The patient is very poor historian, but this is likely demand ischemia from the urinary tract infection that he is having. I recommend an outpatient Lexiscan stre ss test on him and an echocardiogram and baby aspirin 81 mg daily. 2.Dyslipidemia. Continue Lipitor 40 mg q.h.s. 3.Chronic heart failure, on Lasix to be continued. He appears to be euvolemic. 4.Urinary tract infection, on IV antibiotics. Cardiology will sign off and have the patient follow up on outpatient basis. SR/MODL Voice ID: [id number] Report ID: [id number]
[2023-10-19 04:12] LABS: Absolute Basophils 0.1 K/uL (0-0.5); Absolute Eosinophils 0.1 K/uL (0-0.5); Absolute Lymphocytes (CBC) 2.5 K/uL (0.7-4.9); Absolute Monocytes 0.4 K/uL (0.1-1.3); Absolute Neutrophil 3.6 K/uL (1.8-8.0); Basophils % 0.9 % (0-1.3); Hematocrit 34.8 % (39.6-49.0); Hemoglobin 11.6 g/dL (13.6-17.9); Lymphocytes % 38.1 % (15.3-44.8); MCHC 33.4 g/dL (32.0-36.0); MCV 89.9 fL (80-100); MPV 9.1 fL (7.6-11.3); Monocytes % 5.8 % (3.3-12.3); Neutrophils % 54.2 % (41.7-73.7); Nucleated Red Blood Cells % 0.2 % (0-0); Platelets 171 thou/uL (152-406); RBC Red Blood Cell Count 3.88 M/uL (4.33-5.43); Red Cell Distribution Width 14.9 % (12.1-15.2)
[2023-10-19 04:30] LABS: Albumin 2.7 g/dL (3.4-5.0); Albumin/Globulin Ratio 0.5 (1.1-1.8); Anion Gap 8.8 mEq/L (5.0-15.0); Bilirubin Total 0.7 mg/dL (0.2-1.0); Globulin 5.3 g/dL (2.3-3.5); Magnesium 1.8 mg/dL (1.6-2.4); Potassium 3.8 mEq/L (3.5-5.1)
--- NOTE | 2023-10-19 11:36 | P.PN ---
Date of Service: 10/19/23 Subjective: Drowsy this morning Denies any specific complaints No acute events overnight ROS: 10 point ROS as noted above, otherwise negative Physical exam GEN: Alert, oriented, NAD HEENT: Normal conjunctiva, sclera anicteric CV: Regular rate and rhythm, no edema Pulm: Nonlabored respirations on room air ABD: Soft, nontender, nondistended MSK: No joint tenderness Integumentary: No rashes Neuro: Normal speech, normal affect Vitals reviewed Assessment: UTI Metabolic encephalopathy secondary to UTI Atrial fibrillation on chronic anticoagulation Chronic diastolic congestive heart failure Previous CVA with residual left hemiparesis Insulin-dependent diabetes mellitus type II GERD Hyperlipidemia Hypertension Schizoaffective disorder/BPD CKD 3 Plan: UTI Metabolic encephalopathy secondary to UTI Sent for urine culture-follow Continue with IV Rocephin Monitor CBC daily, monitor for fevers Await urine culture Atrial fibrillation on chronic anticoagulation Metoprolol, Eliquis continued Chronic diastolic congestive heart failure Metoprolol, Lasix continued Previous CVA with residual left hemiparesis Noted Home meds continued Insulin-dependent diabetes mellitus type II Home medications continued ACHS Accu-Chek, sinus insulin GERD Hyperlipidemia Hypertension Schizoaffective disorder/BPD Home medications continued CKD 3 Monitor renal function daily DVT PPX:Eliquis Code status:Full Discharge Plan: Custodial Plan to discharge in: Greater than 1-2 days Time Spent Managing Pts Care (In Minutes): 35
[2023-10-19] MEDS: POTASSIUM CL SA 10 MEQ TAB PO ONE (12:07)
[2023-10-19] MEDS: APIXABAN 2.5 MG TABLET PO SCH (21:23)
[2023-10-20 04:43] LABS: Absolute Eosinophils 0.1 K/uL (0-0.5); Absolute Lymphocytes (CBC) 2.1 K/uL (0.7-4.9); Absolute Monocytes 0.5 K/uL (0.1-1.3); Absolute Neutrophil 3.6 K/uL (1.8-8.0); Basophils % 0.2 % (0-1.3); Eosinophils % 1.4 % (0-4.4); Hematocrit 36.4 % (39.6-49.0); Hemoglobin 12.1 g/dL (13.6-17.9); Lymphocytes % 33.8 % (15.3-44.8); MCHC 33.3 g/dL (32.0-36.0); MCV 90.1 fL (80-100); MPV 9.2 fL (7.6-11.3); Monocytes % 7.6 % (3.3-12.3); Nucleated Red Blood Cells % 0.3 % (0-0); Platelets 182 thou/uL (152-406); RBC Red Blood Cell Count 4.04 M/uL (4.33-5.43)
[2023-10-20 04:56] LABS: Albumin 2.9 g/dL (3.4-5.0); Albumin/Globulin Ratio 0.6 (1.1-1.8); Anion Gap 8.6 mEq/L (5.0-15.0); Bilirubin Total 0.7 mg/dL (0.2-1.0); Globulin 5.2 g/dL (2.3-3.5); Magnesium 1.9 mg/dL (1.6-2.4); Potassium 3.6 mEq/L (3.5-5.1); Protein, Total 8.1 g/dL (6.4-8.2)
--- NOTE | 2023-10-20 08:23 | RAD REPORT ---
[facility] 7:54 am CLINICAL HISTORY: cough COMPARISON: Chest Single View dated 10/17/2023; Chest Single View dated 06/08/2023; Chest Single View dated 05/28/2023; Chest Single View dated 04/02/2021 TECHNIQUE: Portable AP view of the chest. FINDINGS: The lungs are clear apart from stable left basilar atelectasis. No pneumothorax or effusi on. The cardiomediastinal contours are unremarkable. IMPRESSION: No acute cardiopulmonary process.
[2023-10-20] MEDS: POTASSIUM CL SA 10 MEQ TAB PO ONE (09:07)
[2023-10-20] MEDS: Meropenem 1,000 MG in NA CHLORIDE 0.9% 100 ML IV SCH (09:58)
--- NOTE | 2023-10-20 11:13 | P.PN ---
Date of Service: 10/20/23 Subjective: Seems to be drowsy in the mornings more alert in the afternoons no acute events overnight ESBL in urine culture ROS: 10 point ROS as noted above, otherwise negative Physical exam GEN: Alert, oriented, NAD HEENT: Normal conjunctiva, sclera anicteric CV: Regular rate and rhythm, no edema Pulm: Nonlabored respirations on room air ABD: Soft, nontender, nondistended MSK: No joint tenderness Integumentary: No rashes Neuro: Normal speech, normal affect Vitals reviewed Assessment: UTI-ESBL Metabolic encephalopathy secondary to UTI Atrial fibrillation on chronic anticoagulation Chronic diastolic congestive heart failure Previous CVA with residual left hemiparesis Insulin-dependent diabetes mellitus type II GERD Hyperlipidemia Hypertension Schizoaffective disorder/BPD CKD 3 Plan: UTI-ESBL Metabolic encephalopathy secondary to UTI culture returned ESBL Started on merrem 10/19 ID consult placed Monitor CBC daily, monitor for fevers Atrial fibrillation on chronic anticoagulation Metoprolol, Eliquis continued Chronic diastolic congestive heart failure Metoprolol, Lasix continued Previous CVA with residual left hemiparesis Noted Home meds continued Insulin-dependent diabetes mellitus type II Home medications continued ACHS Accu-Chek, sinus insulin GERD Hyperlipidemia Hypertension Schizoaffective disorder/BPD Home medications continued CKD 3 Monitor renal function daily DVT PPX:Eliquis Code status:Full Discharge Plan: Care Home Plan to discharge in: Greater than 1-2 days Time Spent Managing Pts Care (In Minutes): 35
[2023-10-20 23:06] VITALS: O2SAT 97
[2023-10-21 04:04] LABS: Absolute Basophils 0.1 K/uL (0-0.5); Absolute Eosinophils 0.1 K/uL (0-0.5); Absolute Lymphocytes (CBC) 1.9 K/uL (0.7-4.9); Absolute Monocytes 0.4 K/uL (0.1-1.3); Absolute Neutrophil 3.5 K/uL (1.8-8.0); Eosinophils % 1.5 % (0-4.4); Hematocrit 36.4 % (39.6-49.0); Hemoglobin 11.9 g/dL (13.6-17.9); MCH 29.6 pg (27.0-35.0); MCHC 32.7 g/dL (32.0-36.0); MCV 90.7 fL (80-100); MPV 9.4 fL (7.6-11.3); Monocytes % 7.1 % (3.3-12.3); Neutrophils % 58.4 % (41.7-73.7); Nucleated Red Blood Cells % 0.1 % (0-0); Platelets 175 thou/uL (152-406); RBC Red Blood Cell Count 4.01 M/uL (4.33-5.43); Red Cell Distribution Width 14.9 % (12.1-15.2)
[2023-10-21 04:20] LABS: Albumin 2.7 g/dL (3.4-5.0); Albumin/Globulin Ratio 0.5 (1.1-1.8); Anion Gap 10.7 mEq/L (5.0-15.0); Bilirubin Total 0.8 mg/dL (0.2-1.0); Globulin 5.5 g/dL (2.3-3.5); Magnesium 1.9 mg/dL (1.6-2.4); Potassium 3.7 mEq/L (3.5-5.1); Protein, Total 8.2 g/dL (6.4-8.2)
--- NOTE | 2023-10-21 07:15 | ECHO ---
HEIGHT: 5 ft 9 in WEIGHT: 275 lb 0 oz DATE OF STUDY: 10/18/[address]: Alan Shrestha NP 2-DIMENSIONAL: YES M.MODE: YES DOPPLER: YES COLOR FLOW: YES TDS: PORTABLE: YES DEFINITY: BUBBLE STUDY: DIAGNOSIS: ELEVATED TROPONIN CARDIAC HISTORY: CATHERIZATION: NO SURGERY: NO PROSTHETIC VALVE: NO PACEMAKER: NO MEASUREMENTS (cm) DIASTOLIC (NORMALS) SYSTOLIC (NORMALS) IVSd 1.1 (0.6-1.2) LA Diam 2.6 (1.9-4.0) LVEF 61% LVIDd 4.5 (3.5-5.7) LVIDs 3.0 (2.0-3.5) %FS 32% LVPWd 1.2 (0.6-1.2) Ao Diam 3.1 (2.0-3.7) 2 DIMENSIONAL ASSESSMENT: RIGHT ATRIUM: NORMAL LEFT ATRIUM: NORMAL RIGHT VENTRICLE: NORMAL LEFT VENTRICLE: NORMAL TRICUSPID VALVE: MILD TRICUSPID REGURGITATION MITRAL VALVE: NORMAL PULMONIC VALVE: NORMAL AORTIC VALVE: NORMAL PERICARDIAL EFFUSION: NONE AORTIC ROOT: NORMAL LEFT VENTRICULAR WALL MOTION: NORMAL DOPPLER/COLOR FLOW: SEE BELOW COMMENTS: 1. NORMAL LEFT VENTRICULAR EJECTION FRACTION 55-60% 2. NORMAL WALL MOTION 3. MILD TRICUSPID REGURGITATION 4. POOR STUDY TECHNOLOGIST: DEJUAN PRADHAN
[2023-10-21] MEDS: POTASSIUM CL SA 10 MEQ TAB PO ONE (08:40)
--- NOTE | 2023-10-21 11:55 | P.PN ---
Date of Service: 10/21/23 Subjective: alert, eating breakfast no acute events overnight ESBL in urine culture ROS: 10 point ROS as noted above, otherwise negative Physical exam GEN: Alert, oriented, NAD HEENT: Normal conjunctiva, sclera anicteric CV: Regular rate and rhythm, no edema Pulm: Nonlabored respirations on room air ABD: Soft, nontender, nondistended MSK: No joint tenderness Integumentary: No rashes Neuro: Normal speech, normal affect Vitals reviewed Assessment: UTI-ESBL Metabolic encephalopathy secondary to UTI Atrial fibrillation on chronic anticoagulation Chronic diastolic congestive heart failure Previous CVA with residual left hemiparesis Insulin-dependent diabetes mellitus type II GERD Hyperlipidemia Hypertension Schizoaffective disorder/BPD CKD 3 Plan: UTI-ESBL Metabolic encephalopathy secondary to UTI culture returned ESBL Started on merrem 10/19, will need 7 days total ending 10/26 ID consult placed Monitor CBC daily, monitor for fevers Stable for DC to [email or web address] IV merrem may decrease effect of depakote-patient does not have seizure history Atrial fibrillation on chronic anticoagulation Metoprolol, Eliquis continued Chronic diastolic congestive heart failure Metoprolol, Lasix continued Previous CVA with residual left hemiparesis Noted Home meds continued Insulin-dependent diabetes mellitus type II Home medications continued ACHS Accu-Chek, sinus insulin GERD Hyperlipidemia Hypertension Schizoaffective disorder/BPD Home medications continued CKD 3 Monitor renal function daily DVT PPX:Eliquis Code status:Full Discharge Plan: [facility] Plan to discharge in: Greater than 1-2 days Time Spent Managing Pts Care (In Minutes): 35
[2023-10-21 13:16] VITALS: BP 104/57
--- NOTE | 2023-10-21 16:03 | P.DS ---
Admission Date: 10/17/23 Discharge Date: 10/21/23 Disposition: TRANSFER TO SNF - MEDICAL Discharge Condition: GOOD Reason for Admission: UTI, AMS, elevated troponin Consultations: Infectious disease Dr. Penaloza Brief History of Present Illness: 73-year-old male with history of atrial fibrillation on chronic anticoagulation, chronic diastolic congestive heart failure, previous CVA with residual left hemiparesis, insulin-dependent diabetes, GERD, hyperlipidemia, hypertension, schizoaffective disorder/BPD, CKD presents emergency department for chief complaint of altered mental status. Patient is a resident of [facility] and was sent over for decreased level of consciousness. Patient was evaluated in the emergency department his labs were significant for hemoglobin 9.2 hematocrit 34.4 bicarb 34 creatinine 1.4 GFR 53 calcium 7.8 high sensitive troponin 164.3 albumin 2.6 UA with 2+ nitrite, leuk esterase, bacteria concerning for UTI. Chest x-ray was obtained which revealed mild CHF pattern, CT head without contrast was negative for acute findings. ED provider wishes to admit for AMS, UTI, elevated troponin Hospital Course: Assessment: UTI-ESBL Metabolic encephalopathy secondary to UTI Atrial fibrillation on chronic anticoagulation Chronic diastolic congestive heart failure Previous CVA with residual left hemiparesis Insulin-dependent diabetes mellitus type II GERD Hyperlipidemia Hypertension Schizoaffective disorder/BPD CKD 3 Vital Signs/Physical Exam: Temp Pulse Resp BP Pulse Ox 97.6 F 65 16 104/57 L 95 10/21/23 12:00 10/21/23 12:00 10/21/23 12:00 10/21/23 12:00 10/21/23 12:00 General: Alert, In no apparent distress, Oriented x2 HEENT: Atraumatic, PERRLA Neck: Supple, JVD not distended Respiratory: Clear to auscultation bilaterally, Normal air movement Cardiovascular: Regular rate/rhythm, Normal S1 S2 Gastrointestinal: Normal bowel sounds, No tenderness Musculoskeletal: No tenderness Integumentary: No rashes Neurological: Normal speech, Normal tone Laboratory Data at Discharge: WBC 6.00 thou/uL (4.3-10.9) 10/21/23 03:30 Hgb 11.9 g/dL (13.6-17.9) L 10/21/23 03:30 Hct 36.4 % (39.6-49.0) L 10/21/23 03:30 Plt Count 175 thou/uL (152-406) 10/21/23 03:30 Sodium 140 mEq/L (136-145) 10/21/23 03:30 Potassium 3.7 mEq/L (3.5-5.1) 10/21/23 03:30 BUN 16 mg/dL (7-18) 10/21/23 03:30 Creatinine 1.23 mg/dL (0.70-1.30) 10/21/23 03:30 Glucose 99 mg/dL (74-106) 10/21/23 03:30 Magnesium 1.9 mg/dL (1.6-2.4) 10/21/23 03:30 Total Bilirubin 0.8 mg/dL (0.2-1.0) 10/21/23 03:30 AST 67 U/L (15-37) H 10/21/23 03:30 ALT 54 U/L (16-61) 10/21/23 03:30 Alkaline Phosphatase 46 U/L (45-117) 10/21/23 03:30 Triglycerides 118 mg/dL (<150) 10/18/23 03:14 Cholesterol 98 mg/dL (<200) 10/18/23 03:14 HDL Cholesterol 24 mg/dL (40-60) L 10/18/23 03:14 Cholesterol/HDL Ratio 4.08 10/18/23 03:14 Home Medications: Acetaminophen [Tylenol] 650 mg PO Q6HP PRN 05/29/23 Apixaban [Eliquis *] 5 mg PO BID 05/29/23 Atorvastatin Calcium [Lipitor] 40 mg PO BEDTIME 05/29/23 Baclofen 5 mg PO TID 05/29/23 Cholecalciferol (Vitamin D3) [Vitamin D3] 2,000 unit PO DAILY 05/29/23 Divalproex Sodium 1,000 mg PO BID 05/29/23 Docusate [Colace Cap*] 100 mg PO DAILY 05/29/23 Fluticasone [Flonase 50MCG Nasal [place]*] 2 spr DANA DAILY 05/29/23 Gabapentin 100 mg PO TID 05/29/23 Insulin Glargine,Hum.rec.anlog [Lantus] 10 unit SQ BEDTIME 05/29/23 Insulin Lispro [Humalog] 5 unit SQ TIDWM 05/29/23 Ipratropium/Albuterol Sulfate [Iprat-Albut 0.5-3(2.5) mg/3 ml] 1 amp NEB TID 05/29/23 Lidocaine [Salonpas] 1 patch TOP DAILY 05/29/23 Linagliptin [Tradjenta] 5 mg PO DAILY 05/29/23 Loratadine [Claritin*] 10 mg PO DAILY 05/29/23 Melatonin 5 mg PO BEDTIME 05/29/23 Metformin HCl [Glucophage*] 850 mg PO BID 05/29/23 Metoprolol Tartrate [Lopressor*] 25 mg PO BID 05/29/23 Multivitamin [Multivitamins] 1 tab PO DAILY 05/29/23 Trazodone HCl 300 mg PO BEDTIME 05/29/23 Furosemide [Lasix*] 40 mg PO DAILY #60 tab 06/10/23 Physician Discharge Instructions: Physician discharge instructions Patient was admitted to the hospital for urinary tract infection, metabolic encephalopathy. His mental status improved his hospitalization and he has been awake, alert and oriented x 2-3. He was initially on Rocephin and his urine culture returned with E. coli ESBL. He was started on meropenem on 10/19 and will need 7 days of IV meropenem ending on 10/26. The IV meropenem may decrease the effectiveness of the Depakote which he appears to be taking for schizoaffective disorder/BPD. at discharge recommend continuation of home medications as prescribed with the addition of meropenem 1 g IV 3 times daily through 10/26 Clinical updates faxed to: [address] [address] P:[phone] F:[phone] F: [phone] Diet: AHA Activity: Fall precautions Followup: NONE,NONE [Primary Care Provider] - Time spent managing pt's care (in minutes): 30
[2023-10-21 17:34] VITALS: TEMP 96.8
--- NOTE | 2023-10-22 14:11 | EKG ---
Test Date: 2023-10-21 Test Time: 02:51:30 Jacker: FREDDIE MEASUREMENT RESULTS: Intervals: Rate: 128 [place]: QRSD: 92 QT: 366 QTc: 534 [place]: P: [place]: QRS: 97 T: 89 INTERPRETIVE STATEMENTS: Sinus tcahycardia Rightward axis Nonspecific T wave abnormality Abnormal ECG Compared to ECG 10/17/2023 13:29:54 Right-axis deviation now present Sinus rhythm no longer present T-wave abnormality still present Electronically Signed On 10-22-23 14:06:33 CDT by Louis Lopez
== END 2023-10-21 18:59 | DRG 689 ==
LOC: ER 13:13 → ERHOLD 16:51 → 4TH 17:46
PROVIDERS: ADMIT Hospitalist; ATTEND Hospitalist
DX: N39.0 Urinary tract infection, site not specified (principal); G93.41 Metabolic encephalopathy; I13.0 Hypertensive heart and chronic kidney disease with heart failure and stage 1 through stage 4 chronic kidney disease, or unspecified chronic kidney disease; I50.32 Chronic diastolic (congestive) heart failure; I69.354 Hemiplegia and hemiparesis following cerebral infarction affecting left non-dominant side; Z68.41 Body mass index [BMI] 40.0-44.9, adult; Z16.12 Extended spectrum beta lactamase (ESBL) resistance; E66.9 Obesity, unspecified; N18.30 Chronic kidney disease, stage 3 unspecified; E11.22 Type 2 diabetes mellitus with diabetic chronic kidney disease; I48.91 Unspecified atrial fibrillation; E78.5 Hyperlipidemia, unspecified; F25.0 Schizoaffective disorder, bipolar type; K21.9 Gastro-esophageal reflux disease without esophagitis; B96.20 Unspecified Escherichia coli [E. coli] as the cause of diseases classified elsewhere; R79.89 Other specified abnormal findings of blood chemistry; Z79.4 Long term (current) use of insulin; Z79.01 Long term (current) use of anticoagulants; Z79.84 Long term (current) use of oral hypoglycemic drugs; Z90.49 Acquired absence of other specified parts of digestive tract; Z79.899 Other long term (current) drug therapy
CPT/HCPCS: 36415; 51702; 70450; 71045; 80048; 80053; 80061; 80076; 80164; 81001; 82947; 83735; 84439; 84443; 84484; 85025; 87077; 87086; 87088; 87186; 93005; 93306; 96365; 99285; J0696; J1650; J2185

== ENCOUNTER 2024-09-21 15:33 | Inpatient (IN) | payer OTHER ==
[2024-09-21 16:09] LABS: Absolute Basophils 0.1 K/uL (0-0.5); Absolute Eosinophils 0.1 K/uL (0-0.5); Absolute Monocytes 0.8 K/uL (0.1-1.3); Absolute Neutrophil 12.1 K/uL (1.8-8.0); Basophils % 0.6 % (0-1.3); Eosinophils % 0.7 % (0-4.4); Hematocrit 39.5 % (39.6-49.0); Hemoglobin 12.9 g/dL (13.6-17.9); Lymphocytes % 13.3 % (15.3-44.8); MCH 29.6 pg (27.0-35.0); MCHC 32.6 g/dL (32.0-36.0); MCV 90.6 fL (80-100); MPV 9.1 fL (7.6-11.3); Monocytes % 5.5 % (3.3-12.3); Neutrophils % 79.9 % (41.7-73.7); Nucleated Red Blood Cells % 0.1 % (0-0); Platelets 244 thou/uL (152-406); RBC Red Blood Cell Count 4.36 M/uL (4.33-5.43); Red Cell Distribution Width 13.9 % (12.1-15.2)
[2024-09-21 16:28] LABS: Albumin 3.2 g/dL (3.4-5.0); Albumin/Globulin Ratio 0.7 (1.1-1.8); Anion Gap 7.6 mEq/L (5.0-15.0); Bilirubin Direct 0.2 mg/dL (0-0.2); Bilirubin Indirect, Calculated 0.3 mg/dL (0.2-0.8); Bilirubin Total 0.5 mg/dL (0.2-1.0); Globulin 4.8 g/dL (2.3-3.5); Potassium 3.6 mEq/L (3.5-5.1)
[2024-09-21 16:30] LABS: Troponin High Sensitivity 68.9 pg/mL (<58.9)
--- NOTE | 2024-09-21 16:41 | RAD REPORT ---
Procedure: Chest Single View HISTORY: Chest pain COMPARISON: October 2023 FINDINGS: The lungs appear clear of acute infiltrate. No significant pleural effusion noted. The heart is mildly enlarged. IMPRESSION: No acute abnormality is displayed.
--- NOTE | 2024-09-21 17:58 | ER ---
Nurse's Notes [facility] Name: Sumanth Rodriguez Age: 74 yrs Sex: Male : 1950 Arrival Date: 09/21/2024 Time: 15:33 Bed 13 Private MD: Diagnosis: Chest pain, unspecified;Elevated troponin Presentation: 09/21 15:49 Chief complaint: EMS states: The Staff at [facility] called reporting the 4 pt was complaining of chest pain. The pt was saying it was his left armpit that was hurting him. Staff reports the pt never cries and that is the most abnormal thing for him currently. BGL was in the 120's. EKG read sinus tach. Coronavirus screen: At this time, the client does not indicate any symptoms associated with coronavirus-19. Ebola Screen: No symptoms or risks identified at this time. Initial Sepsis Screen: Does the patient meet any 2 criteria? HR > 90 bpm. Does the patient have a suspected source of infection? No. Patient's initial sepsis screen is negative. Risk Assessment: Do you want to hurt yourself or someone else? Patient reports no desire to harm self or others. Onset of symptoms was September 21, 2024. 15:49 Method Of Arrival: EMS: [place] [id number] 15:49 Acuity: TORY 2 jb4 Triage Assessment: 15:49 General: Appears in no apparent distress. comfortable, Behavior is cooperative, jb4 anxious. Pain: Complains of pain in left axilla Pain does not radiate. Pain currently is 0 out of 10 on a pain scale. Neuro: Level of Consciousness is awake, alert, obeys commands, Oriented to person, time. Cardiovascular: Patient's skin is warm and dry. Respiratory: Airway is patent Respiratory effort is even, unlabored, Respiratory pattern is regular, symmetrical. Derm: Skin is intact, Skin is dry, Skin is normal, Skin temperature is warm. Musculoskeletal: Circulation, motion, and sensation intact. Range of motion: intact in all extremities. Historical: - Allergies: 15:53 No Known Allergies; jb4 - PMHx: 15:53 Atrial Fib; CHF; constipation; CVA; Diabetes - NIDDM; DYSPHAGIA; GERD; hemiplegia left jb4 side; Hyperlipidemia; Hypertension; muscle spasms; - Immunization history:: Adult Immunizations up to date. - Infectious Disease History:: Denies. - Social history:: Smoking status: Patient denies any tobacco usage or history of. - Family history:: not pertinent. Screenin:00 [facility] ED Fall Risk Assessment (Adult) History of falling in the last 3 months, jb4 including since admission No falls in past 3 months (0 pts) Confusion or Disorientation Yes (5 pts) Intoxicated or Sedated No (0 pts) Impaired Gait Yes (1 pt) Mobility Assist Device Used No (0 pt) Altered Elimination No (0 pt) Score/Fall Risk Level 3 or more points = High Risk Oriented to surroundings, Maintained a safe environment. Abuse screen: Denies threats or abuse. Nutritional screening: No deficits noted. Tuberculosis screening: No symptoms or risk factors identified. Assessment: 16:55 Reassessment: Patient appears in no apparent distress at this time. Patient and/or jb4 family updated on plan of care and expected duration. Pain level reassessed. Patient is alert, oriented x 3, equal unlabored respirations, skin warm/dry/pink. 18:00 Reassessment: Patient appears in no apparent distress at this time. Patient and/or jb4 family updated on plan of care and expected duration. Pain level reassessed. Patient is alert, oriented x 3, equal unlabored respirations, skin warm/dry/pink. 19:00 Reassessment: Pt resting in bed with eyes closed, respirations are even and unlabored jb4 with no s/s of pain or distress noted. 20:00 Reassessment: Pt resting in bed with eyes closed, respirations even and unlabored with jb4 no s/s of pain or distress noted. 21:00 Reassessment: Patient appears in no apparent distress at this time. No changes from jb4 previously documented assessment. Patient and/or family updated on plan of care and expected duration. Pain level reassessed. 22:00 Reassessment: Patient appears in no apparent distress at this time. Patient and/or jb4 family updated on plan of care and expected duration. Pain level reassessed. Patient is alert, oriented x 3, equal unlabored respirations, skin warm/dry/pink. PT changed, linens changed. Vital Signs: 15:49 BP 101 / 63; Pulse 100; Resp 18; Temp 98.9(O); Pulse Ox 100% on 3 lpm NC; Weight 112.94 jb4 kg (M); Height 5 ft. 11 in. (R); 16:46 BP 111 / 65; Pulse 93; Resp 17; Pulse Ox 95% on 3 lpm NC; jb4 18:00 BP 123 / 69; Pulse 82; Resp 16; Pulse Ox 96% on 2 lpm NC; jb4 19:00 BP 99 / 58; Pulse 81; Resp 18; Pulse Ox 96% on 2 lpm NC; jb4 20:00 BP 131 / 62; Pulse 80; Resp 16; Pulse Ox 97% on 2 lpm NC; jb4 21:00 BP 114 / 56; Pulse 71; Resp 16; Pulse Ox 95% on 2 lpm NC; jb4 22:00 BP 115 / 73; Pulse 66; Resp 16; Pulse Ox 99% on 2 lpm NC; jb4 22:49 Temp 98.4(O); jb4 15:49 Body Mass Index 34.73 (112.94 kg, 180.34 cm) jb4 ED Course: 15:37 Patient arrived in ED. ss 15:40 Kwame Argueta MD is Attending Physician. rt 15:49 Arm band placed on right wrist. jb4 15:53 Triage completed. jb4 16:02 Basic Metabolic Panel Sent. jb4 16:02 CBC with Diff Sent. jb4 16:02 LFT's Sent. jb4 16:02 Troponin HS Sent. jb4 16:15 XRAY Chest (1 view) In Process Unspecified. EDMS 16:46 Kaushal Gauthier, RN is Primary Nurse. jb4 17:56 Dalton Sandoval MD is Hospitalizing Provider. rt 18:08 Karen Ramirez MD is Hospitalizing Provider. sb4 19:00 Patient has correct armband on for positive identification. Bed in low position. Call jb4 light in reach. Side rails up X 1. Provided Education on: plan of care. Client placed on continuous cardiac and pulse oximetry monitoring. NIBP monitoring applied. software test technician on. Pulse ox on. 19:00 Oxygen administration via nasal cannula \T\ 2L/min. jb4 23:12 No provider procedures requiring assistance completed. Patient admitted, IV remains in jb4 place. Administered Medications: 21:49 Drug: Eliquis PO 5 mg PO once Route: PO; jb4 22:45 Follow up: Response: No adverse reaction jb4 Medication: 19:00 VIS not applicable for this client. jb4 Outcome: 17:57 Decision to Hospitalize by Provider. rt 23:12 Admitted to Tele accompanied by tech, via stretcher, room 431, with oxygen, with chart, jb4 Report called to WARREN Gao 23:12 Condition: stable 23:14 Patient left the ED. jb4 Signatures: Dispatcher [employer] EDMS Yolanda Simms RN RN Kaushal Gauthier RN RN [email or web address] Pam Zayas PA-C PALissette [email or web address] Kwame Argueta MD MD rt Corrections: (The following items were deleted from the chart) 15:53 15:49 Pulse 100bpm; Resp 18bpm; Pulse Ox 100% 3 lpm Nasal Cannula; Temp 98.9F Oral; jb4 112.94 kg Measured; Height 5 ft. 11 in. Reported; BMI: 34.7; jb4
--- NOTE | 2024-09-21 17:58 | EDPHYS ---
Physician Documentation [facility] Name: Sumanth Rodriguez Age: 74 yrs Sex: Male : 1950 Arrival Date: 09/21/2024 Time: 15:33 Bed 13 Private MD: ED Physician Kwame Argueta HPI: 09/21 17:06 This 74 yrs old Black Male presents to ER via EMS with complaints of Chest Pain. rt 17:06 Patient presents to the ED from assisted for reported chest pain. He states the rt pain to the left axilla, denies any pain currently. Unclear when the timing of onset was. He denies other acute complaints at this time, symptoms are moderate in severity no other aggravating or alleviating factors.. Historical: - Allergies: 15:53 No Known Allergies; jb4 - PMHx: 15:53 Atrial Fib; CHF; constipation; CVA; Diabetes - NIDDM; DYSPHAGIA; GERD; hemiplegia left jb4 side; Hyperlipidemia; Hypertension; muscle spasms; - Immunization history:: Adult Immunizations up to date. - Infectious Disease History:: Denies. - Social history:: Smoking status: Patient denies any tobacco usage or history of. - Family history:: not pertinent. ROS: 17:15 Constitutional: Negative for fever, chills, and weight loss, Respiratory: Negative for rt shortness of breath, cough, wheezing, and pleuritic chest pain, Abdomen/GI: Negative for abdominal pain, nausea, vomiting, diarrhea, and constipation, MS/Extremity: Negative for injury and deformity, Skin: Negative for injury, rash, and discoloration, Neuro: Negative for headache, weakness, numbness, tingling, and seizure, 17:15 Cardiovascular: Positive for chest pain, Negative for edema, Exam: 17:15 Constitutional: This is a well developed, well nourished patient who is awake, alert, rt and in no acute distress. Head/Face: Normocephalic, atraumatic. Neck: Trachea midline, no thyromegaly or masses palpated, and no cervical lymphadenopathy. Supple, full range of motion without nuchal rigidity, or vertebral point tenderness. No Meningismus. Chest/axilla: Normal chest wall appearance and motion. Nontender with no deformity. No lesions are appreciated. Cardiovascular: Regular rate and rhythm with a normal S1 and S2. No gallops, murmurs, or rubs. Normal PMI, no JVD. No pulse deficits. Respiratory: Lungs have equal breath sounds bilaterally, clear to auscultation and percussion. No rales, rhonchi or wheezes noted. No increased work of breathing, no retractions or nasal flaring. Abdomen/GI: Soft, non-tender, with normal bowel sounds. No distension or tympany. No guarding or rebound. No evidence of tenderness throughout. Skin: Warm, dry with normal turgor. Normal color with no rashes, no lesions, and no evidence of cellulitis. MS/ Extremity: Pulses equal, no cyanosis. Neurovascular intact. Full, normal range of motion. 17:15 ECG was reviewed by the Attending Physician. Vital Signs: 15:49 BP 101 / 63; Pulse 100; Resp 18; Temp 98.9(O); Pulse Ox 100% on 3 lpm NC; Weight 112.94 jb4 kg (M); Height 5 ft. 11 in. (R); 16:46 BP 111 / 65; Pulse 93; Resp 17; Pulse Ox 95% on 3 lpm NC; jb4 18:00 BP 123 / 69; Pulse 82; Resp 16; Pulse Ox 96% on 2 lpm NC; jb4 19:00 BP 99 / 58; Pulse 81; Resp 18; Pulse Ox 96% on 2 lpm NC; jb4 20:00 BP 131 / 62; Pulse 80; Resp 16; Pulse Ox 97% on 2 lpm NC; jb4 21:00 BP 114 / 56; Pulse 71; Resp 16; Pulse Ox 95% on 2 lpm NC; jb4 22:00 BP 115 / 73; Pulse 66; Resp 16; Pulse Ox 99% on 2 lpm NC; jb4 22:49 Temp 98.4(O); jb4 15:49 Body Mass Index 34.73 (112.94 kg, 180.34 cm) jb4 MDM: 15:40 Medical Screening Exam initiated rt 17:53 Differential diagnosis: ACS, pneumonia, pneumothorax. HEART Score: History: Moderately rt Suspicious (1), ECG: Non specific repolarization disturbance / LBTB / PM (1), Age: > or = 65 years (2), Risk Factors: > or = 3 Risk factors for atherosclerotic disease (2), Troponin: > 1 and < 3 x normal limit (1), Total Score = 7. Data reviewed: vital signs, nurses notes, lab test result(s), EKG, radiologic studies. Consideration of Admission/Observation Patient was admitted/placed on observation. Management of patient was discussed with the following: Hospitalist: Agrees to admit. Independent interpretation of the following test(s) in the Emergency Department X-Ray: My interpretation is No pneumonia seen on interpretation of x-ray images. Test considered but Not performed: CT: Low suspicion for pulmonary embolus, CT angiogram not indicated. Care significantly affected by the following chronic conditions: Congestive Heart Failure. Counseling: I had a detailed discussion with the patient and/or guardian regarding the historical points, exam findings, and any diagnostic results supporting the discharge/admit diagnosis, lab results, radiology results, the need for further work-up and treatment in the hospital. Response to treatment: the patient's symptoms have markedly improved after treatment. 09/21 15:40 Order name: Basic Metabolic Panel; Complete Time: 16:42 rt 09/21 15:40 Order name: CBC with Diff; Complete Time: 16:42 rt 09/21 15:40 Order name: LFT's; Complete Time: 16:42 rt 09/21 15:40 Order name: Troponin HS; Complete Time: 16:42 rt 09/21 15:40 Order name: XRAY Chest (1 view); Complete Time: 16:42 rt 09/21 18:13 Order name: CONS Physician Consult EDMS 09/21 15:40 Order name: Cardiac monitoring; Complete Time: 15:48 rt 09/21 15:40 Order name: EKG - Nurse/Tech; Complete Time: 15:48 rt 09/21 15:40 Order name: IV Saline Lock; Complete Time: 15:48 rt 09/21 15:40 Order name: Labs collected and sent; Complete Time: 16:02 rt 09/21 15:40 Order name: O2 Per Protocol; Complete Time: 15:48 rt 09/21 15:40 Order name: O2 Sat Monitoring; Complete Time: 15:48 rt EC:15 Rate is 105 beats/min. Rhythm is regular, Normal Sinus Rhythm with PACs. QRS [place] is rt Normal. NM interval is normal. QRS interval is normal. QT interval is normal. No Q waves. T waves are Normal. No ST changes noted. Interpreted by me. Administered Medications: 21:49 Drug: Eliquis PO 5 mg PO once Route: PO; jb4 22:45 Follow up: Response: No adverse reaction jb4 Disposition Summary: 09/21/24 17:57 Hospitalization Ordered Notes: Hospitalization Status: Observation rt Location: Telemetry/MedSurg (observation) rt Condition: Stable rt Problem: new rt Symptoms: have improved rt Bed/Room Type: Standard rt Provider: Karen Ramirez(09/21/24 18:08) sb4 Room Assignment: [facility](09/21/24 21:11) Diagnosis - Chest pain, unspecified rt - Elevated troponin rt Forms: - Medication Reconciliation Form rt - SBAR form rt - Leadership Thank You Letter rt Signatures: Dispatcher [employer] Lisha Jalloh RN RN Kaushal Bishop RN RN jbPam Jones PA-C PA-C sb4 [place], Ryan, MD MD rt Corrections: (The following items were deleted from the chart) 15:41 15:41 Chest Single View+RAD.RAD.BRZ ordered. EDNV EDMS 18:08 17:57 Dalton Sandoval rt sb4 21:11 17:57 rt
--- NOTE | 2024-09-21 18:16 | P.HP ---
Certification for Inpatient Patient admitted to: Observation With expected LOS: <2 Midnights Patient will require the following post-hospital care: None Practitioner: I am a practitioner with admitting privileges, knowledge of patient current condition, hospital course, and medical plan of care. Services: Services provided to patient in accordance with Admission requirements found in Title 42 Section 412.3 of the Code of Federal Regulations Patient History Date of Service: 09/21/24 Primary Care Provider: David Lam Reason for admission: Chest pain History of Present Illness: Mr. Rodriguez is a 74-year-old male with history of atrial fibrillation on chronic anticoagulation, chronic diastolic congestive heart failure, previous CVA with residual left hemiparesis, insulin-dependent diabetes, GERD, hyperlipidemia, hypertension, schizoaffective disorder/BPD, CKD presents emergency department with complaints of chest pain. Patient was evaluated in the emergency department - his labs were significant for WBC 15, hemoglobin 12.9, creatinine 1.5, troponin HS 68.9. EKG showed sinus tachycardia with PACs, no ST changes. Chest x-ray was obtained which revealed no abnormalities. ED provider wishes to admit for chest pain and elevated troponin. Allergies No Known Allergies Allergy (Verified 05/28/23 21:44) Home medications list reviewed: Yes Home Medications: Acetaminophen [Tylenol] 650 mg PO Q6HP PRN 05/29/23 Apixaban [Eliquis *] 5 mg PO BID 05/29/23 Atorvastatin Calcium [Lipitor] 40 mg PO BEDTIME 05/29/23 Baclofen 5 mg PO TID 05/29/23 Cholecalciferol (Vitamin D3) [Vitamin D3] 2,000 unit PO DAILY 05/29/23 Divalproex Sodium 1,000 mg PO BID 05/29/23 Docusate [Colace Cap*] 100 mg PO DAILY 05/29/23 Fluticasone [Flonase 50MCG Nasal [place]*] 2 spr DANA DAILY 05/29/23 Gabapentin 100 mg PO TID 05/29/23 Insulin Glargine,Hum.rec.anlog [Lantus] 10 unit SQ BEDTIME 05/29/23 Insulin Lispro [Humalog] 5 unit SQ TIDWM 05/29/23 Ipratropium/Albuterol Sulfate [Iprat-Albut 0.5-3(2.5) mg/3 ml] 1 amp NEB TID 10/25/23 Lidocaine [Salonpas] 1 patch TOP DAILY 05/29/23 Linagliptin [Tradjenta] 5 mg PO DAILY 05/29/23 Loratadine [Claritin*] 10 mg PO DAILY 05/29/23 Melatonin 5 mg PO BEDTIME 05/29/23 Metformin HCl [Glucophage*] 850 mg PO BID 05/29/23 Metoprolol Tartrate [Lopressor*] 25 mg PO BID 05/29/23 Multivitamin [Multivitamins] 1 tab PO DAILY 05/29/23 Trazodone HCl 300 mg PO BEDTIME 05/29/23 Furosemide [Lasix*] 40 mg PO DAILY #60 tab 06/10/23 - Past Medical/Surgical History Diabetic: Yes -: CVA X3 -: HTN -: hyperlipidemia -: CHF -: GERD -: dysphagia -: left sided paralysis. -: DM2 -: insomnia -: cognitive communication deficit -: muscle weakness -: fior Psychosocial/ Personal History: Resident of [facility] - Family History Mother -: Hypertension - Social History Alcohol use: No CD- Drugs: No Caffeine use: No Place of Residence: Detention Review of Systems 10-point ROS is otherwise unremarkable Cardiovascular: Chest Pain Physical Examination - Vital Signs Temperature: 98.9 F Blood Pressure: 111/65 Pulse: 93 Respirations: 17 Pulse Ox (%): 95 (3L NC) - Physical Exam General: Alert, In no apparent distress, Cooperative HEENT: Atraumatic, Normocephalic, EOMI Neck: JVD not distended Respiratory: Other (Normal work of breathing) Cardiovascular: Normal pulses, Regular rate/rhythm Gastrointestinal: Soft and benign, Non-distended Integumentary: No rashes Neurological: Other (left sided hemiparesis), Abnormal speech External genitalia: Deferred Rectal: Deferred - Studies Laboratory Data (last 24 hrs) 09/21/24 09/21/24 15:58 15:58 WBC 15.10 H Hgb 12.9 L Hct 39.5 L Plt Count 244 Sodium 139 Potassium 3.6 BUN 17 Creatinine 1.50 H Glucose 100 Total Bilirubin 0.5 AST 15 ALT 17 Alkaline Phosphatase 57 Assessment and Plan - Plan Assessment: Chest pain/elevated troponin Atrial fibrillation on chronic anticoagulation Chronic diastolic congestive heart failure Previous CVA with residual left hemiparesis Insulin-dependent diabetes mellitus type II GERD Hyperlipidemia Hypertension Schizoaffective disorder/BPD CKD 3 Plan: Chest pain/elevated troponin Troponin slightly elevated at 68.9. Has been elevated on prior admissions Trend troponins q6h x 3 Patient states chest pain has since resolved Cardiology consult Monitor on telemetry Atrial fibrillation on chronic anticoagulation Metoprolol, Eliquis continued Chronic diastolic congestive heart failure Metoprolol, Lasix continued Previous CVA with residual left hemiparesis Noted Home meds continued Insulin-dependent diabetes mellitus type II Home medications continued ACHS Accu-Chek, sliding scale insulin GERD Hyperlipidemia Hypertension Schizoaffective disorder/BPD Home medications continued CKD 3 Monitor renal function daily DVT PPX:Eliquis Code status:Full Discharge Plan: Detention Plan to discharge in: 24 hours Discharge Plan: Detention Plan to discharge in: 24 Hours - Advance Directives Does patient have a Living Will: No Does patient have a Durable POA for Healthcare: No - Code Status/Comfort Care Code Status Assessed: Yes Code Status: Full Code Critical Care: No Time Spent Managing Pts Care (In Minutes): 50
[2024-09-21] MEDS ORDERED: APIXABAN 5 MG TABLET ONE (21:20)
[2024-09-21 22:23] VITALS: BMI 34.7
[2024-09-21] MEDS ORDERED: ACETAMINOPHEN 325 MG TABLET PO PRN (22:49)
[2024-09-22 07:18] LABS: Absolute Eosinophils 0.2 K/uL (0-0.5); Absolute Lymphocytes (CBC) 1.7 K/uL (0.7-4.9); Absolute Monocytes 0.7 K/uL (0.1-1.3); Absolute Neutrophil 5.6 K/uL (1.8-8.0); Basophils % 0.3 % (0-1.3); Hematocrit 37.7 % (39.6-49.0); Hemoglobin 12.3 g/dL (13.6-17.9); Lymphocytes % 21.1 % (15.3-44.8); MCH 29.7 pg (27.0-35.0); MCHC 32.5 g/dL (32.0-36.0); MCV 91.3 fL (80-100); MPV 8.6 fL (7.6-11.3); Monocytes % 8.1 % (3.3-12.3); Neutrophils % 68.5 % (41.7-73.7); Nucleated Red Blood Cells % 0.2 % (0-0); Platelets 215 thou/uL (152-406); RBC Red Blood Cell Count 4.13 M/uL (4.33-5.43); Red Cell Distribution Width 13.7 % (12.1-15.2)
[2024-09-22 07:31] LABS: Anion Gap 5.5 mEq/L (5.0-15.0); Potassium 3.5 mEq/L (3.5-5.1)
[2024-09-22 07:48] LABS: Troponin High Sensitivity 67.6 pg/mL (<58.9)
[2024-09-22] MEDS: BACLOFEN 10 MG TAB PO SCH (12:55)
[2024-09-22] MEDS: GABAPENTIN 100 MG CAP PO SCH (12:55)
--- NOTE | 2024-09-22 13:07 | P.CNS ---
Date of Consult: 09/22/24 Primary Care Provider: David Lam Chief Complaint: Chest pain History of Present Illness: Patient with PMH of Atrial fibrillation, chronic diastolic heart failure, CVA, lives in a snf, was admitted to the hospital for chest pain, patient denies chest pain at time of interview, patient is not very good at communication, looks like he has limited activity, no other complains. Allergies No Known Allergies Allergy (Verified 05/28/23 21:44) Home medications list reviewed: Yes Home Medications: Acetaminophen [Tylenol] 650 mg PO Q6HP PRN 05/29/23 Apixaban [Eliquis *] 5 mg PO BID 05/29/23 Atorvastatin Calcium [Lipitor] 40 mg PO BEDTIME 05/29/23 Baclofen 5 mg PO TID 05/29/23 Cholecalciferol (Vitamin D3) [Vitamin D3] 2,000 unit PO DAILY 05/29/23 Divalproex Sodium 1,000 mg PO BID 05/29/23 Docusate [Colace Cap*] 100 mg PO DAILY 05/29/23 Gabapentin 200 mg PO TID 05/29/23 Insulin Glargine,Hum.rec.anlog [Lantus] 11 unit SQ BEDTIME 05/29/23 Lidocaine [Salonpas] 1 patch TOP DAILY 05/29/23 Melatonin 10 mg PO BEDTIME 05/29/23 Metformin HCl [Glucophage*] 850 mg PO BID 05/29/23 Metoprolol Tartrate [Lopressor*] 25 mg PO BID 05/29/23 Multivitamin [Multivitamins] 1 tab PO DAILY 05/29/23 Trazodone HCl 400 mg PO BEDTIME 05/29/23 Furosemide [Lasix*] 40 mg PO BID 09/21/24 Linagliptin [Tradjenta] 5 mg PO DAILY 09/21/24 Lisinopril [Zestril] 2.5 mg PO DAILY 09/21/24 Mag Hydroxide 8% [Milk Of Magnesia] 60 ml PO DAILYPRN PRN 09/21/24 - Past Medical/Surgical History Diabetic: Yes -: CVA X3 -: HTN -: hyperlipidemia -: CHF -: GERD -: dysphagia -: left sided paralysis. -: DM2 -: insomnia -: cognitive communication deficit -: muscle weakness -: fior Psychosocial/ Personal History: Resident of [facility] - Family History Mother Medical History: Hypertension - Social History Smoking Status: Unknown if ever smoked Alcohol use: No CD- Drugs: No Caffeine use: No Place of Residence: Residential Review of Systems 10-point ROS is otherwise unremarkable Physical Examination Temp Pulse Resp BP Pulse Ox 97.9 F 70 18 143/66 H 98 09/22/24 12:00 09/22/24 12:00 09/22/24 12:00 09/22/24 12:00 09/22/24 12:00 General: Alert, In no apparent distress HEENT: Atraumatic, PERRLA, Mucous membr. moist/pink, EOMI, Sclerae nonicteric Neck: Supple, 2+ carotid pulse no bruit, No LAD, Without JVD or thyroid abnormality Respiratory: Clear to auscultation bilaterally, Normal air movement Cardiovascular: Regular rate/rhythm, Normal S1 S2 Gastrointestinal: Normal bowel sounds, No tenderness Musculoskeletal: No tenderness Integumentary: No rashes Neurological: Normal gait, Normal speech, Normal tone, Normal affect Lymphatics: No axilla or inguinal lymphadenopathy Laboratory Data (last 24 hrs) 09/21/24 09/21/24 15:58 15:58 WBC 15.10 H Hgb 12.9 L Hct 39.5 L Plt Count 244 Sodium 139 Potassium 3.6 BUN 17 Creatinine 1.50 H Glucose 100 Total Bilirubin 0.5 AST 15 ALT 17 Alkaline Phosphatase 57 - Problems (1) Atrial fibrillation Current Visit: Yes Status: Acute Plan: looks like patient is currently in sinus rhythm Hold eliquis and start Lovenox just in case patient need a coronary angiogram. continue metoprolol 25 mg po BID Continue to monitor on tele. (2) Chest pain Current Visit: Yes Status: Acute Plan: patient chest pain resolved at time of interview, EKG no significant ST-T wave changes, Troponin mild elevated with no significant delta, which can be type 2 PA from DIO. recommend therpeutic lovenox ASA 81 mg daily Lipitor 40 mg daily get echo get physical therapy to evaluate patient, if able to do activity then recommend a nuclear stress test (Lexiscan) Qualifiers: Chest pain type: unspecified Qualified Code(s): R07.9 - Chest pain, unspecified
[2024-09-22] MEDS: POTASSIUM 25 MEQ EFFERV TAB PO ONE (15:07)
[2024-09-22] MEDS: DIVALPROEX DR 500MG TAB PO SCH (20:57)
[2024-09-22] MEDS: METOPROLOL TAR 25 MG TAB PO SCH (20:57)
[2024-09-22] MEDS: APIXABAN 5 MG TABLET PO SCH (20:57)
[2024-09-22] MEDS: ATORVASTATIN 40 MG TAB PO SCH (20:57)
[2024-09-22] MEDS: INSULIN GLARGINE 100 UNIT/ML SQ SCH (20:58)
[2024-09-23 01:39] LABS: Specific Gravity 1.024 (1.005-1.030); Sqamous Epithelial <5 /HPF (None Seen); Urine Bacteria >50 /HPF (<20); Urine Bilirubin NEGATIVE (Negative); Urine Blood Negative (Negative); Urine Clarity Extremely Turbid (Clear); Urine Color Yellow (Yellow); Urine Culture Reflex Order REFLEXED; Urine Glucose NEGATIVE (Negative); Urine Ketones NEGATIVE (Negative); Urine Microscopic Reflex YN ORDER UMIC; Urine Mucus Slight /HPF (None Seen); Urine Nitrite 1+ (Negative); Urine Protein TRACE (Negative); Urine RBC <5 /HPF (None Seen); Urine Urobilinogen 4+ (Over) (Normal); Urine WBC >50 /HPF (<5)
[2024-09-23 07:06] LABS: Anion Gap 7.5 mEq/L (5.0-15.0); Magnesium 2.1 mg/dL (1.6-2.4); Phosphorus 2.9 mg/dL (2.5-4.9); Potassium 3.5 mEq/L (3.5-5.1)
[2024-09-23] MEDS: POTASSIUM 25 MEQ EFFERV TAB PO ONE (08:31)
--- NOTE | 2024-09-24 07:56 | P.PN ---
Date of Service: 09/22/24 Subjective Patient clinically feeling better. Patient denies any new complaints. Chest pain has resolved. Echo pending. Physical Examination - Vital Signs Reviewed - Physical Exam General: Alert, In no apparent distress, Cooperative Respiratory: Other (Normal work of breathing) Cardiovascular: Normal pulses, Regular rate/rhythm Gastrointestinal: Soft and benign, Non-distended Integumentary: No rashes Neurological: Other (left sided hemiparesis), Abnormal speech External genitalia: Deferred Assessment and Plan -Assessment/Plan Assessment: Chest pain/elevated troponin Atrial fibrillation on chronic anticoagulation Chronic diastolic congestive heart failure Previous CVA with residual left hemiparesis Insulin-dependent diabetes mellitus type II GERD Hyperlipidemia Hypertension Schizoaffective disorder/BPD CKD 3 Plan: Chest pain/elevated troponin Troponins have been stable. No change in troponin so unlikely to have any significant cardiac event especially in the light of the fact that his symptoms have resolved. Patient is not able to get out of bed. Plan to discharge later today. Atrial fibrillation on chronic anticoagulation Metoprolol, Eliquis continued Chronic diastolic congestive heart failure Metoprolol, Lasix continued Previous CVA with residual left hemiparesis Continue with antiplatelet therapy and statin therapy Insulin-dependent diabetes mellitus type II Home medications continued ACHS Accu-Chek, sliding scale insulin GERD Hyperlipidemia Hypertension Schizoaffective disorder/BPD Home medications continued CKD 3 Monitor renal function daily DVT PPX:Eliquis Code status:Full Discharge Plan: Senior Care Plan to discharge in: 24 hours Discharge Plan: Senior Care Plan to discharge in: 24 Hours - Advance Directives Does patient have a Living Will: No Does patient have a Durable POA for Healthcare: No - Code Status/Comfort Care Code Status Assessed: Yes Code Status: Full Code Critical Care: No Time Spent Managing Pts Care (In Minutes): 30
--- NOTE | 2024-09-24 07:57 | P.PN ---
Date of Service: 09/23/24 Subjective Patient continues to improve. Patient denies any new complaints. Clinical symptoms are much better. Physical Examination - Vital Signs Reviewed - Physical Exam General: Alert, In no apparent distress, Cooperative Respiratory: Other (Normal work of breathing) Cardiovascular: Normal pulses, Regular rate/rhythm Gastrointestinal: Soft and benign, Non-distended Integumentary: No rashes Neurological: Other (left sided hemiparesis), Abnormal speech External genitalia: Deferred Assessment and Plan -Assessment/Plan Assessment: Chest pain/elevated troponin Atrial fibrillation on chronic anticoagulation Chronic diastolic congestive heart failure Previous CVA with residual left hemiparesis Insulin-dependent diabetes mellitus type II GERD Hyperlipidemia Hypertension Schizoaffective disorder/BPD CKD 3 Plan: Chest pain/elevated troponin Patient remains doing well. Anticipate discharge later today. Atrial fibrillation on chronic anticoagulation Metoprolol, Eliquis continued Chronic diastolic congestive heart failure Metoprolol, Lasix continued Previous CVA with residual left hemiparesis Continue with antiplatelet therapy and statin therapy Insulin-dependent diabetes mellitus type II Home medications continued ACHS Accu-Chek, sliding scale insulin GERD Hyperlipidemia Hypertension Schizoaffective disorder/BPD Home medications continued CKD 3 Monitor renal function daily DVT PPX:Eliquis Code status:Full Discharge Plan: Residential Plan to discharge in: 24 hours Discharge Plan: Residential Plan to discharge in: 24 Hours - Advance Directives Does patient have a Living Will: No Does patient have a Durable POA for Healthcare: No - Code Status/Comfort Care Code Status Assessed: Yes Code Status: Full Code Critical Care: No Time Spent Managing Pts Care (In Minutes): 30
[2024-09-24 09:01] VITALS: O2SAT 94
[2024-09-24 12:11] VITALS: BP 121/60; TEMP 98
--- NOTE | 2024-09-24 13:15 | ECHO ---
HEIGHT: 5 ft 11 in WEIGHT: 249 lb 0 oz DATE OF STUDY: 09/24/[address]: Karen Ramirez MD 2-DIMENSIONAL: YES M.MODE: YES DOPPLER: YES COLOR FLOW: YES TDS: YES PORTABLE: YES DEFINITY: BUBBLE STUDY: DIAGNOSIS: TYPE 2 MYOCARDIAL INFARCTION CARDIAC HISTORY: CATHERIZATION: NO SURGERY: NO PROSTHETIC VALVE: NO PACEMAKER: NO MEASUREMENTS (cm) DIASTOLIC (NORMALS) SYSTOLIC (NORMALS) IVSd 1.3 (0.6-1.2) LA Diam 2.5 (1.9-4.0) LVEF 60-65% LVIDd 4.4 (3.5-5.7) LVIDs 2.5 (2.0-3.5) %FS LVPWd 1.2 (0.6-1.2) Ao Diam 3.3 (2.0-3.7) 2 DIMENSIONAL ASSESSMENT: RIGHT ATRIUM: NORMAL LEFT ATRIUM: NORMAL RIGHT VENTRICLE: NORMAL LEFT VENTRICLE: NORMAL TRICUSPID VALVE: MILD TRICUSPID REGURGITATION MITRAL VALVE: NORMAL PULMONIC VALVE: NORMAL AORTIC VALVE: NORMAL PERICARDIAL EFFUSION: NONE AORTIC ROOT: NORMAL LEFT VENTRICULAR WALL MOTION: NORMAL DOPPLER/COLOR FLOW: GRADE I DIASTOLIC DYSFUNCTION COMMENTS: 1. NORMAL LEFT VENTRICULAR SYSTOLIC FUNCTION, EJECTION FRACTION 60-65%, NORMAL WALL MOTION 2. GRADE I DIASTOLIC DYSFUNCTION 3. NORMAL FILLING PRESSURE TECHNOLOGIST: CRICKET KRAMER
--- NOTE | 2024-09-28 12:31 | EKG ---
Test Date: 2024-09-21 Test Time: 15:41:42 Wire Splicer: [employer] MEASUREMENT RESULTS: Intervals: Rate: 105 OH: 174 QRSD: 90 QT: 350 QTc: 462 [place]: P: 38 OH: 174 QRS: 54 T: 56 INTERPRETIVE STATEMENTS: Sinus tachycardia with premature atrial complexes Otherwise normal ECG Compared to ECG 10/21/2023 02:51:30 Atrial premature complex(es) now present Right-axis deviation no longer present T-wave abnormality no longer present Electronically Signed On 09-28-24 12:18:18 [employer] SUPERVISOR by Deep Doshi
== END 2024-09-24 12:30 | DRG 281 ==
LOC: ER 15:33 → ERHOLD 18:10 → 4TH 21:50 → OBSVTOIN 09-23 08:22
PROVIDERS: ADMIT Hospitalist; ATTEND Hospitalist
DX: R07.9 Chest pain, unspecified (principal); I13.0 Hypertensive heart and chronic kidney disease with heart failure and stage 1 through stage 4 chronic kidney disease, or unspecified chronic kidney disease; I21.A1 Myocardial infarction type 2; I50.32 Chronic diastolic (congestive) heart failure; I69.354 Hemiplegia and hemiparesis following cerebral infarction affecting left non-dominant side; N17.9 Acute kidney failure, unspecified; I48.91 Unspecified atrial fibrillation; N18.30 Chronic kidney disease, stage 3 unspecified; E11.22 Type 2 diabetes mellitus with diabetic chronic kidney disease; E78.00 Pure hypercholesterolemia, unspecified; K21.9 Gastro-esophageal reflux disease without esophagitis; F25.0 Schizoaffective disorder, bipolar type; Z79.4 Long term (current) use of insulin; Z79.01 Long term (current) use of anticoagulants; Z79.899 Other long term (current) drug therapy
CPT/HCPCS: 36415; 71045; 80048; 80061; 80076; 81001; 82947; 83735; 84100; 84484; 85025; 87077; 87086; 87088; 87186; 92526; 92610; 93005; 93306; 99285; G0378

== ENCOUNTER 2024-10-24 20:17 | Inpatient (IN) | payer OTHER ==
[2024-10-24] MEDS ORDERED: ACETAMINOPHEN 650MG/RECT SUPP PR ONE (20:43)
[2024-10-24] MEDS ORDERED: ONDANSETRON 4 MG/2 ML VIAL ONE (20:43)
[2024-10-24] MEDS ORDERED: VANCOMYCIN 1 GM/VIAL ONE (20:43)
[2024-10-24] MEDS ORDERED: ZIPRASIDONE MESYLA 20 MG/VIAL IM ONE (20:43)
[2024-10-24] MEDS ORDERED: NA CHLORIDE 0.9% 500 ML ONE (20:44)
[2024-10-24] MEDS ORDERED: CEFEPIME 2 GM VIAL ONE (20:44)
[2024-10-24] MEDS ORDERED: NA CHLORIDE 0.9% 100 ML ONE (20:44)
[2024-10-24] MEDS ORDERED: NA CHLORIDE 0.9% 2,000 ML ONE (20:44)
[2024-10-24] MEDS ORDERED: WATER FOR INJ,STERILE 10 ML ONE (20:49)
[2024-10-24 20:56] LABS: Sqamous Epithelial <5 /HPF (None Seen); Urine Bacteria >50 /HPF (<20); Urine Culture Reflex Order REFLEXED; Urine Microscopic Reflex YN ORDER UMIC; Urine Mucus 1+ /HPF (None Seen); Urine RBC <5 /HPF (None Seen)
--- NOTE | 2024-10-24 21:05 | RAD REPORT ---
Procedure: Chest Single View HISTORY: Chest pain COMPARISON: September 2016 FINDINGS: The lungs appear clear of acute infiltrate. No significant pleural effusion noted. The heart appears mildly enlarged IMPRESSION: No acute abnormality is displayed.
[2024-10-24 21:13] LABS: Urine Bilirubin 1+ (Negative); Urine Blood Trace (Negative); Urine Clarity Extremely Turbid (Clear); Urine Color Dark-Yellow (Yellow); Urine Glucose NEGATIVE (Negative); Urine Ketones NEGATIVE (Negative); Urine Nitrite NEGATIVE (Negative); Urine Protein TRACE (Negative); Urine Urobilinogen 3+ (Normal); Urine pH 5.5 (5.0-7.0)
[2024-10-24] MEDS ORDERED: LORazepam 2 MG/ML VIAL ONE (21:28)
[2024-10-24 22:16] LABS: PT Prothrombin Time 14.6 SECONDS (10-13.0); PTT, Activated Partial Thromb 29.7 SECONDS (27.2-37.4); Protime INR 1.3
--- NOTE | 2024-10-24 22:16 | RAD REPORT ---
Procedure: Chest Single View HISTORY: Central venous line placement FINDINGS: Central venous line has been placed 1 cm into the right atrium. A pneumothorax is not seen
[2024-10-24 22:23] LABS: Absolute Basophils 0.1 K/uL (0-0.5); Absolute Eosinophils 0.2 K/uL (0-0.5); Absolute Lymphocytes (CBC) 2.4 K/uL (0.7-4.9); Absolute Monocytes 0.7 K/uL (0.1-1.3); Absolute Neutrophil 6.5 K/uL (1.8-8.0); Basophils % 0.6 % (0-1.3); Eosinophils % 1.7 % (0-4.4); Hematocrit 38.4 % (39.6-49.0); Hemoglobin 12.7 g/dL (13.6-17.9); Lymphocytes % 24.3 % (15.3-44.8); MCH 30.2 pg (27.0-35.0); MCV 91.4 fL (80-100); MPV 8.6 fL (7.6-11.3); Monocytes % 6.8 % (3.3-12.3); Neutrophils % 66.6 % (41.7-73.7); Nucleated Red Blood Cells % 0.2 % (0-0); Platelets 233 thou/uL (152-406); Red Cell Distribution Width 13.8 % (12.1-15.2)
[2024-10-24 22:25] LABS: Albumin/Globulin Ratio 0.6 (1.1-1.8); Anion Gap 8.4 mEq/L (5.0-15.0); Bilirubin Total 1.3 mg/dL (0.2-1.0); Globulin 5.2 g/dL (2.3-3.5); Potassium 3.4 mEq/L (3.5-5.1); Protein, Total 8.2 g/dL (6.4-8.2)
[2024-10-24 22:41] LABS: Arterial Blood Carboxyhemoglob 1.1 % (0-1.5); Blood Gas Oxyhemoglobin 73.7 % (94-97); Blood O2 Saturation 75.9 % (92-98.5)
[2024-10-24 23:14] LABS: Influenza A Ag Negative; Influenza B Ag Negative; SARS-CoV-2 Antigen Rapid Res Negative (Negative)
--- NOTE | 2024-10-25 01:18 | RAD REPORT ---
EXAM: Chest Abdomen Pelvis W Cont CLINICAL HISTORY: abdominal distension COMPARISON: CTA chest 05/29/[address] abdomen pelvis 12/05/2020 TECHNIQUE: CT of the chest, abdomen and pelvis performed following the administration of IV contrast. No oral contrast. This exam was performed according to our departmental dose-optimization program, which includes automated exposure control, adjustment of the mA and/or kV according to patient size a nd/or use of iterative reconstruction technique. FINDINGS: Exam is limited due to motion artifact. Artifact from patient's upper extremities. Chest: Thyroid: No abnormalities of the visualized thyroid gland. Great Vessels: Great vessels have normal anatomic configuration. 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 Contrast bolus is not optimized for assessment of the thoracic aorta. Scattered atherosclerotic plaque. Pulmonary arteries: The main pulmonary artery is dilated. Contrast bolus is not optimized for assessm ent of pulmonary emboli. Heart: No pericardial effusion. Coronary artery calcifications. Lymph Nodes: No enlarged mediastinal, hilar, or axillary lymph nodes identified. Esophagus: No abnormalities of the esophagus identified Other: Prominent bilateral gynecomastia. Lungs: Motion artifact limits examination. Consolidative opacities in the lower lobes bilaterally, ri ght greater than left. Mild additional opacities also noted in the upper lobes and right middle lobe. Findings could be due to multifocal infection and atelectasis. Cannot exclude component of guadalupe a. Pleura: No pleural effusion or pneumothorax. Trachea/Airways: There appear to be some secretions in the trachea. Abdomen: Liver: The liver has normal size and density. No intrahepatic mass or biliary dilatation. Gallbladder: Surgically absent. Spleen, Pancreas, and Adrenal Glands: The spleen, pancreas, and adrenal glands are unremarkable. Kidneys: No suspicious mass. No urinary tract calculi. No hydronephrosis. Vasculature: The aorta and IVC have normal caliber and position. Scattered atherosclerotic plaque. Stomach: The stomach and duodenum have normal course. Other: No free intraperitoneal air. No significant lymphadenopathy. Pelvis: Bladder: Decompressed by Rausch catheter. Bowel: Large amount of stool in the rectum. There is mild associated wall thickening and adjacent f at stranding/free fluid.There is some gaseous distention of the descending and sigmoid colon with moderate to large amount of stool in the colon proximally up to the level of the splenic flexure. No small bowel dilatation. Appendix: Not definitively visualized. Pelvis: Prostate gland appears to be mildly enlarged. There is a heterogeneous collection in the soft tissues of the lateral left hip measuring at least 12.3 x 6.1 x 10.5 cm. The lateral component is not fully included. This was present in 2020, though is slightly increased in size. Bones: No destructive bone lesions identified. IMPRESSION: 1. Limited exam due to motion artifact. 2. Large amount of stool in the rectum with mild associated wall thickening and adjacent fat strand ing/free fluid. There is some gaseous distention of the descending and sigmoid colon with moderate to large amount of stool in the colon proximally up to the level of the splenic flexure. Findings cou ld be due to fecal impaction and/or colitis. No small bowel dilatation. 3. Consolidative opacities in the lower lobes bilaterally, right greater than left. Mild additional opacities also noted in the upper lobes and right middle lobe. Findings could be due to multifocal infection and atelectasis. Cannot exclude component of edema. 4. 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 5. Heterogeneous collection in the soft tissues of the lateral left hip measuring at least 12.3 x 6 .1 x 10.5 cm. The lateral component is not fully included. This was present in 2020, though is slightly increased in size. Electronically signed by: Ingrid Wells MD 10/25/2024 12:57 AM CDT Due to temporary technical issues with the PACS/FUELUP reporting system, reports are being ted d by the in-house radiologist without review as a courtesy to ensure prompt reporting the interpreting radiologist is fully responsible for the content of the report. Transcribed Date/Time: 10/25/2024 1:18 AM
--- NOTE | 2024-10-25 01:18 | RAD REPORT ---
Two PROCEDURE: Head Brain Wo Cont CLINICAL HISTORY: DECLINING STATE TECHNIQUE: Contiguous axial CT images obtained through the brain without IV contrast. Coronal and sagittal refor matted images were provided. This exam was performed according to our departmental dose-optimization program, which includes autom ated exposure control, adjustment of the mA and/or kV according to patient size and/or use of iterative reconstruction technique. COMPARISON: October 2023 FINDINGS: Age-related loss of brain volume. Large area of encephalomalacia involving the right parietal, temporal and frontal lobes consistent wi th sequela from chronic infarction similar to the prior examination. Large chronic infarction in the right basal ganglia again noted. Volume loss and asymmetric enlargement of the right lateral ventricle. No intracranial hemorrhage or hematoma. No edema or mass effect. Calvarium is intact. Mild paranasal sinus mucosal thickening, likely chronic. No significant interval change since the prior examination. IMPRESSION: 1. No acute intracranial abnormality. 2. Large area of encephalomalacia involving the right parietal, temporal and frontal lobes consiste nt with sequela from chronic infarction similar to the prior examination. Large chronic infarction in the right basal ganglia again noted. Electronically signed by: Tre Sanford MD 10/25/2024 12:43 AM CDT RP Due to temporary technical issues with the PACS/[employer] reporting system, reports are being ted d by the in-house radiologist without review as a courtesy to ensure prompt reporting the interpreting radiologist is fully responsible for the content of the report. Transcribed Date/Time: 10/25/2024 1:17 AM
--- NOTE | 2024-10-25 03:05 | EDPHYS ---
Physician Documentation [facility] Name: Sumanth Rodriguez Age: 74 yrs Sex: Male : 1950 Arrival Date: 10/24/2024 Time: 20:17 Bed 4 Private MD: ED Physician Constantin Marshall HPI: 10/24 20:20 This 74 yrs old Black Male presents to ER via Unassigned with complaints of fever, AMS .sp4 10/25 03:29 74-year-old male with history of left-sided hemiparesis, prior CVA, prolonged sp4 immobility, long-term patient, insulin-dependent diabetes, GERD, hyperlipidemia, hypertension, schizoaffective disorder, BPD, CKD, presents to the emergency room with EMS for complaint of altered mental status and fever. Last admission here 09/24/2024 for persistent chest pains. Patient's medications include acetaminophen, apixaban 5 mg twice daily, atorvastatin 40 mg bedtime, baclofen 5 mg 3 times daily, cholecalciferol daily, Depakote twice daily, docusate daily, gabapentin 3 times daily, insulin glargine subcu bedtime, lidocaine patches, melatonin bedtime, metformin twice daily, metoprolol 25 twice daily, multivitamin daily, trazodone 400 mg bedtime, furosemide 40 mg twice daily, linagliptin 5 mg daily, lisinopril 2.5 mg daily,. Historical: - PMHx: 10/24 21:17 Atrial Fib; CHF; constipation; CVA; Diabetes - NIDDM; GERD; DYSPHAGIA; hemiplegia left br2 side; Hyperlipidemia; Hypertension; muscle spasms; - Immunization history:: Adult Immunizations unknown. - Infectious Disease History:: Denies. - Social history:: Smoking status: unknown. - Family history:: not pertinent. ROS: 10/25 03:31 Constitutional: Negative for chills, and weight loss, positive for altered mental sp4 status and fever. All other systems are negative, Unable to obtain ROS due to baseline dementia, Exam: 03:31 Constitutional: Morbidly obese male, obtunded appearing, persistent Mirna with the sp4 right arm, left-sided chronic hemiparesis, severe physical debility, signs of prolonged immobility. Stage I sacral decubitus ulcer, Head/Face: Normocephalic, atraumatic. Eyes: Pupils equal round and reactive to light, Lids and lashes normal. Conjunctiva and sclera are not injected. Cornea within normal limits. Periorbital areas with no swelling, redness, or edema. ENT: Nares patent. No nasal discharge, no septal abnormalities noted. Tympanic membranes are normal and external auditory canals are clear. Oropharynx with no redness, swelling, or masses, exudates, or evidence of obstruction, uvula midline. Mucous membranes moist. Neck: Trachea midline, no thyromegaly or masses palpated, and no cervical lymphadenopathy. Supple, full range of motion without nuchal rigidity, or vertebral point tenderness. Chest/axilla: Normal chest wall appearance and motion. Nontender with no deformity. No lesions are appreciated. Cardiovascular: Regular rate and rhythm with a normal S1 and S2. No gallops, murmurs, or rubs. Normal PMI, no JVD. No pulse deficits. Respiratory: Lungs have equal breath sounds bilaterally, clear to auscultation and percussion. No rales, rhonchi or wheezes noted. No increased work of breathing, no retractions or nasal flaring. Abdomen/GI: Soft, with normal bowel sounds. No distension or tympany. No guarding or rebound. No evidence of tenderness throughout. Obese abdomen, nondistended on exam Back: No spinal tenderness. No costovertebral tenderness. Stage I sacral decubitus ulcer, Male : Normal genitalia with no discharge or lesions. Uncircumcised male, incontinent of bowel and bladder, rectal exam reveals large size fecal impaction Skin: Warm, dry with normal turgor. Normal color with no rashes, no lesions, and no evidence of cellulitis. MS/ Extremity: Pulses equal, no cyanosis. Chronic left-sided hemiparesis, physical debility from prolonged immobility, Neuro: Awake not alert, exam is limited secondary to dementia and prior CVA, reported to have mental status changes, no new neurologic deficits reported otherwise : ECG was reviewed by the Attending Physician. EKG at 2037 sinus rhythm rate 119 Vital Signs: 10/24 21:09 BP 150 / 100; Pulse 120; Resp 24; Temp 100(R); Pulse Ox 89% on 2 lpm NC; br2 22:20 BP 157 / 94; Pulse 103; Resp 18 S; Pulse Ox 97% on 4 lpm NC; ha1 23:20 BP 171 / 83; Pulse 96; Resp 17 S; Pulse Ox 99% on 4 lpm NC; ha1 10/25 00:36 BP 158 / 58; Pulse 97; Resp 18 S; Temp 98.4(T); Pulse Ox 98% on 4 lpm NC; ha1 01:30 BP 154 / 80; Pulse 83; Resp 17 S; Pulse Ox 99% on R/A; ha1 02:30 BP 165 / 85; Pulse 85; Resp 17 S; Pulse Ox 97% on R/A; ha1 03:30 BP 134 / 72; Pulse 77; Resp 18; Pulse Ox 98% ; jj7 04:30 BP 111 / 62; Pulse 77; Resp 15; Pulse Ox 100% ; jj7 05:30 BP 116 / 59; Pulse 78; Resp 16; Temp 97.6(Ca); Pulse Ox 98% ; ha1 Aj Coma Score: 03:31 Eye Response: to voice(3). Motor Response: localizes pain(5). Verbal Response: sp4 incomprehensible(2). Total: 10. Procedures: 03:36 Fecal disimpaction: digital disimpaction was performed, with a large amount of stool sp4 expressed. The patient tolerated the intervention well, Disimpaction performed. No problems. MDM: 10/24 20:22 Medical Screening Exam initiated sp4 10/25 00:02 ED course: Procedure: Chest Single View HISTORY: Chest pain COMPARISON: September 2016 sp4 FINDINGS: The lungs appear clear of acute infiltrate. No significant pleural effusion noted. The heart appears mildly enlarged IMPRESSION: No acute abnormality is displayed. . ED course: Procedure: Chest Single View HISTORY: Central venous line placement FINDINGS: Central venous line has been placed 1 cm into the right atrium. A pneumothorax is not seen . 01:35 ED course: Two PROCEDURE: Head Brain Wo Cont CLINICAL HISTORY: DECLINING STATE sp4 TECHNIQUE: Contiguous axial CT images obtained through the brain without IV contrast. Coronal and sagittal reformatted images were provided. This exam was performed according to our departmental dose-optimization program, which includes automated exposure control, adjustment of the mA and/or kV according to patient size and/or use of iterative reconstruction technique. COMPARISON: October 2023 FINDINGS: Age-related loss of brain volume. Large area of encephalomalacia involving the right parietal, temporal and frontal lobes consistent with sequela from chronic infarction similar to the prior examination. Large chronic infarction in the right basal ganglia again noted. Volume loss and asymmetric enlargement of the right lateral ventricle. No intracranial hemorrhage or hematoma. No edema or mass effect. Calvarium is intact. Mild paranasal sinus mucosal thickening, likely chronic. No significant interval change since the prior examination. IMPRESSION: 1. No acute intracranial abnormality. 2. Large area of encephalomalacia involving the right parietal, temporal and frontal lobes consistent with sequela from chronic infarction similar to the prior examination. Large chronic infarction in the right basal ganglia again noted. . 01:49 ED course: EXAM: Chest Abdomen Pelvis W Cont CLINICAL HISTORY: abdominal distension sp4 COMPARISON: CTA chest 05/29/[address] abdomen pelvis 12/05/2020 TECHNIQUE: CT of the chest, abdomen and pelvis performed following the administration of IV contrast. No oral contrast. This exam was performed according to our departmental dose-optimization program, which includes automated exposure control, adjustment of the mA and/or kV according to patient size and/or use of iterative reconstruction technique. FINDINGS: Exam is limited due to motion artifact. Artifact from patient's upper extremities. Chest: Thyroid:No abnormalities of the visualized thyroid gland. Great Vessels:Great vessels have normal anatomic configuration. Thoracic Aorta:Mild fusiform aneurysm of the ascending aorta measuring up to 4.0 cm. Contrast bolus is not optimized for assessment of the thoracic aorta. Scattered atherosclerotic plaque. Pulmonary arteries:The main pulmonary artery is dilated. Contrast bolus is not optimized for assessment of pulmonary emboli. Heart:No pericardial effusion. Coronary artery calcifications. Lymph Nodes:No enlarged mediastinal, hilar, or axillary lymph nodes identified. Esophagus:No abnormalities of the esophagus identified Other:Prominent bilateral gynecomastia. Lungs:Motion artifact limits examination. Consolidative opacities in the lower lobes bilaterally, right greater than left. Mild additional opacities also noted in the upper lobes and right middle lobe. Findings could be due to multifocal infection and atelectasis. Cannot exclude component of edema. Pleura:No pleural effusion or pneumothorax. Trachea/Airways:There appear to be some secretions in the trachea. Abdomen: Liver: The liver has normal size and density. No intrahepatic mass or biliary dilatation. Gallbladder: Surgically absent. Spleen, Pancreas, and Adrenal Glands: The spleen, pancreas, and adrenal glands are unremarkable. Kidneys: No suspicious mass. No urinary tract calculi. No hydronephrosis. Vasculature: The aorta and IVC have normal caliber and position. Scattered atherosclerotic plaque. Stomach: The stomach and duodenum have normal course. Other: No free intraperitoneal air. No significant lymphadenopathy. Pelvis: Bladder: Decompressed by Rausch catheter. Bowel: Large amount of stool in the rectum. There is mild associated wall thickening and adjacent fat stranding/free fluid.There is some gaseous distention of the descending and sigmoid colon with moderate to large amount of stool in the colon proximally up to the level of the splenic flexure. No small bowel dilatation. Appendix: Not definitively visualized. Pelvis:Prostate gland appears to be mildly enlarged. There is a heterogeneous collection in the soft tissues of the lateral left hip measuring at least 12.3 x 6.1 x 10.5 cm. The lateral component is not fully included. This was present in 2020, though is slightly increased in size. Bones: No destructive bone lesions identified. IMPRESSION: 1. Limited exam due to motion artifact. 2. Large amount of stool in the rectum with mild associated wall thickening and adjacent fat stranding/free fluid. There is some gaseous distention of the descending and sigmoid colon with moderate to large amount of stool in the colon proximally up to the level of the splenic flexure. Findings could be due to fecal impaction and/or colitis. No small bowel dilatation. 3. Consolidative opacities in the lower lobes bilaterally, right greater than left. Mild additional opacities also noted in the upper lobes and right middle lobe. Findings could be due to multifocal infection and atelectasis. Cannot exclude component of edema. 4. 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 5. Heterogeneous collection in the soft tissues of the lateral left hip measuring at least 12.3 x 6.1 x 10.5 cm. The lateral component is not fully included. This was present in 2020, though is slightly increased in size. Electronically signed by: Ingrid Wells MD 10/25/2024 12:57 AM . 03:36 Differential diagnosis: viral Infection, bacterial infection, URI, bronchitis, sp4 pneumonia UTI, gastroenteritis. Data reviewed: vital signs, nurses notes, EMS record, long-term records, old medical records, lab test result(s), EKG, radiologic studies, CT scan, plain films. Consideration of Admission/Observation Patient was admitted/placed on observation. Escalation of care including admission/observation considered. Management of patient was discussed with the following: Pharmacology Professor: Farhad CHURCH . ED course: Stable for admission to the hospital. Disimpaction performed in the ER.. 04:01 ED course: Sepsis reevaluation complete, patient improved, patient could not be given sp4 30 mL/kg septic fluid bolus secondary to current volume overload and history of CHF.. 10/24 20:21 Order name: Blood Culture Adult (2) 4 10/24 20:21 Order name: CBC with Diff; Complete Time: 22:31 [facility] 10/24 20:21 Order name: CMP; Complete Time: 22:31 [facility] 10/24 20:21 Order name: Lactate w/ 2H reflex if indic.; Complete Time: 22:31 4 10/24 20:21 Order name: Protime (+inr); Complete Time: 22:31 4 10/24 20:21 Order name: Ptt, Activated; Complete Time: 22:31 sp4 10/24 20:21 Order name: Urinalysis w/ reflexes; Complete Time: 21:49 sp4 10/24 20:21 Order name: ABG; Complete Time: 00:04 4 10/24 21:16 Order name: Urine Culture [facility] 10/24 22:35 Order name: COVID-19 Ag + Flu A+B Ag; Complete Time: 00:04 sp4 10/25 04:36 Order name: Urinalysis w/ reflexes EDMS 10/25 04:37 Order name: CBC with Automated Diff EDMS 10/25 04:37 Order name: CBC with Automated Diff EDMS 10/25 04:37 Order name: Comprehensive Metabolic Panel EDMS 10/25 04:37 Order name: Comprehensive Metabolic Panel EDMS 10/24 20:21 Order name: Chest Single View XRAY; Complete Time: 21:49 sp4 10/24 21:49 Order name: Chest Single View XRAY; Complete Time: 22:31 kmf 10/24 22:31 Order name: CT Chest, Abdomen, Pelvis - W/Contrast; Complete Time: 03:04 sp4 10/24 22:31 Order name: CT Head Brain wo Cont; Complete Time: 03:04 sp4 10/24 20:21 Order name: Accucheck; Complete Time: :20 sp4 10/24 20:21 Order name: Cardiac monitoring; Complete Time: :20 sp4 10/24 20:21 Order name: Cath; Complete Time: :20 sp4 10/24 20:21 Order name: EKG - Nurse/Tech; Complete Time: 20:56 sp4 10/24 20:21 Order name: IV Saline Lock - Large Bore; Complete Time: : sp4 10/24 20:21 Order name: Labs collected and sent; Complete Time: 21:20 sp4 10/24 20:21 Order name: O2 Per Protocol; Complete Time: : sp4 10/24 20:21 Order name: O2 Sat Monitoring; Complete Time: : sp4 10/24 20:21 Order name: Vital Signs; Complete Time: 22:12 sp4 10/24 21:50 Order name: Central Line Dressing Kit; Complete Time: 22:11 sp4 10/24 21:50 Order name: Central Line Kit; Complete Time: 22:11 sp4 10/24 21:50 Order name: Chlorhexidine prep; Complete Time: 22:11 sp4 10/24 21:50 Order name: Consent for central line completed; Complete Time: :11 sp4 10/24 21:50 Order name: Line Caps x3; Complete Time: 22:11 sp4 10/24 21:50 Order name: NS Flushes x3; Complete Time: 22:11 sp4 10/24 21:50 Order name: Sterile Gloves; Complete Time: 22:11 sp4 10/24 21:50 Order name: Sterile Probe Cover; Complete Time: 22:11 sp4 EC/22 20:38 Rate is 119 beats/min. Rhythm is regular, Sinus tachycardia. QRS [place] is Normal. [place] sp4 interval is normal. QRS interval is normal. QT interval is normal. No Q waves. T waves are Normal. No ST changes noted. Clinical impression: No evidence of ischemia. Interpreted by me. Reviewed by me. Administered Medications: 21:00 Drug: Geodon IM 20 mg IM once Route: IM; Site: left vastus lateralis; br2 22:00 Follow up: Response: No adverse reaction; RASS: Drowsy (-1) ha1 21:40 Drug: Ativan IVP 2 mg IVP once Route: IVP; Site: left hand; br2 22:00 Follow up: Response: No adverse reaction; Marked relief of symptoms; Anxiety decreased ha1 22:11 Drug: vancoMYCIN IVPB 2 grams IVPB at calculated rate once Route: IVPB; Rate: br2 calculated rate; Site: right subclavian; 23:20 Follow up: Response: No adverse reaction; IV Status: Completed infusion; IV Intake: ha1 500ml 22:11 Drug: Cefepime IVPB 2 grams IVPB at 200 ml/hr once over 30 mins; (mix in NS 100 mL) br2 Route: IVPB; Rate: 200 ml/hr; Infused Over: 30 mins; Site: right subclavian; 22:50 Follow up: Response: No adverse reaction; IV Status: Completed infusion; IV Intake: ha1 100ml 22:11 Drug: Ondansetron IVP 4 mg IVP once; over 2 minutes Route: IVP; Site: left hand; br2 22:50 Follow up: Response: No adverse reaction; Marked relief of symptoms ha1 22:12 Drug: NS 0.9% IV 1000 ml IV at 1 bolus Per protocol; to be given as a bolus over 60 br2 minutes Route: IV; Rate: 1 bolus; Site: right subclavian; 23:20 Follow up: IV Status: Completed infusion jj7 22:12 Drug: NS 0.9% IV 1000 ml IV at 1000 ml once; to be given as a bolus over 60 minutes br2 Route: IV; Rate: 1000 ml; Site: right subclavian; 23:20 Follow up: IV Status: Completed infusion jj7 22:12 Drug: Acetaminophen [place] Suppository 650 mg [place] once Route: [place]; br2 23:00 Follow up: Response: No adverse reaction; Temperature is decreased ha1 Point of Care Testing: Blood Glucose: 21:17 Blood Glucose: 98 mg/dL; br2 Ranges: Critical Glucose Levels:Adult <50 mg/dl or >400 mg/dl <40 mg/dl or >180 mg/dl Disposition Summary: 10/25/24 03:04 Hospitalization Ordered Notes: Hospitalization Status: Inpatient Admission sp4 Provider: Josias Llamas sp4 Location: Telemetry/[facility] (Inpatient) sp4 Condition: Serious sp4 Problem: new sp4 Symptoms: have improved sp4 Bed/Room Type: Standard sp4 Room Assignment: [id number](10/25/24 04:46) kmf Diagnosis - Severe sepsis without septic shock sp4 - Bilateral pneumonia, acute hypoactive delirium, moderate fecal impaction, acute UTI sp4 with pyelonephritis Forms: - Medication Reconciliation Form sp4 - SBAR form sp4 - Leadership Thank You Letter sp4 Critical care time excluding procedures: 10/25 04:01 Critical care time: Bedside Care: 36 minutes, Consultation: 12 minutes, Family sp4 Intervention: 12 minutes. Total time: 60 minutes Signatures: Dispatcher [employer] EDMS Constantin Marshall MD MD sp4 Leela Mariee f Carolina Flores RN RN br2 Pema Jang RN ha1 Pete Andre RN jj7 Corrections: (The following items were deleted from the chart) 10/24 20:22 20:22 BLOOD CULTURE*+BA.LAB.BRZ ordered. EDMS EDMS 20:22 20:22 CBC+H.LAB.BRZ ordered. EDMS EDMS 20:22 20:22 COMPREHENSIVE METABOLIC PANEL+C.LAB.BRZ ordered. EDMS EDMS 20:22 20:22 LACTATE+C.LAB.BRZ ordered. EDMS EDMS 20:22 20:22 PROTIME (+INR)+COAG.LAB.BRZ ordered. EDMS EDMS 20:22 20:22 PTT, ACTIVATED+COAG.LAB.BRZ ordered. EDMS EDMS 20:22 20:22 Urinalysis+U.LAB.BRZ ordered. EDMS EDMS 20:22 20:22 Chest Single View+RAD.RAD.BRZ ordered. EDMS EDMS 20:22 20:22 Arterial Blood Gas+RC.LAB.BRZ ordered. EDMS EDMS 21:59 21:50 Chest Single View+RAD.RAD.BRZ ordered. EDMS EDMS 10/25 04:46 03:04 sp4 kmf
--- NOTE | 2024-10-25 03:05 | ER ---
Nurse's Notes [facility] Name: Sumanth Rodriguez Age: 74 yrs Sex: Male : 1950 Arrival Date: 10/24/2024 Time: 20:17 Bed 4 Private MD: Diagnosis: Severe sepsis without septic shock;Bilateral pneumonia, acute hypoactive delirium, moderate fecal impaction, acute UTI with pyelonephritis Presentation: 10/24 21:09 Chief complaint: EMS states: PT SENT FROM [facility] DUE TO AMS. PT IS NORMALLY br2 ORIENTED X2 AND IS VERBAL, BUT DOESN'T USUALLY MAKE SENSE. PER PENITENTIARY PT IS NON-VERBAL, LETHARGIC, DISTENDED ABDOMEN, LOW GRADE TEMP, LOW 02 SATS AT 89% \T\2L DECREASED URINE OUTPUT, HAS LEFT SIDE PARALYSIS AND HAS TWITCHING ON RIGHT UPPER EXT MORE THAN NORMAL. Coronavirus screen: Client denies travel out of the [place] in the last 14 days. Ebola Screen: Patient denies exposure to infectious person. Initial Sepsis Screen: Does the patient meet any 2 criteria? RR > 20 per min. Altered Mental Status. HR > 90 bpm. Does the patient have a suspected source of infection? No. Patient's initial sepsis screen is negative. Risk Assessment: Do you want to hurt yourself or someone else? Patient reports no desire to harm self or others. Onset of symptoms is unknown. 21:09 Method Of Arrival: EMS: [facility] br2 21:09 Acuity: TORY 3 br2 Triage Assessment: 21:17 General: Appears uncomfortable, obese, Behavior is restless. Pain: Unable to use pain br2 scale. NON-VERBAL. 21:17 EENT: No signs and/or symptoms were reported regarding the EENT system. Neuro: Norris br2 Agitation-Sedation Scale (RASS): +1 Restless Level of Consciousness is awake, confused, NON-VERBAL . Cardiovascular: Capillary refill < 3 seconds. Respiratory: Airway is patent Respiratory effort is even, Respiratory pattern is regular, symmetrical. GI: Abdomen is round distended. : Parent/caregiver report the patient having PER PENITENTIARY DECREASED URINE OUTPUT. Derm: Decubitus located on sacrum is stage II. Musculoskeletal: Range of motion: limited in left shoulder, left elbow, left wrist, left hip, left knee and left ankle. Historical: - PMHx: 21:17 Atrial Fib; CHF; constipation; CVA; Diabetes - NIDDM; GERD; DYSPHAGIA; hemiplegia left br2 side; Hyperlipidemia; Hypertension; muscle spasms; - Immunization history:: Adult Immunizations unknown. - Infectious Disease History:: Denies. - Social history:: Smoking status: unknown. - Family history:: not pertinent. Screenin:17 [facility] ED Fall Risk Assessment (Adult) History of falling in the last 3 months, br2 including since admission No falls in past 3 months (0 pts) Confusion or Disorientation Yes (5 pts) Intoxicated or Sedated No (0 pts) Impaired Gait Yes (1 pt) Mobility Assist Device Used No (0 pt) Altered Elimination Yes (1 pt) Score/Fall Risk Level 3 or more points = High Risk. Abuse screen: Denies injuries from another. Nutritional screening: No deficits noted. Tuberculosis screening: No symptoms or risk factors identified. Assessment: 20:40 General: Appears uncomfortable, Behavior is anxious, restless, uncooperative. Pain: ha1 Unable to use pain scale. FLACC scale score is 0 out of 10. Neuro: Level of Consciousness is awake, Oriented to person. Cardiovascular: Capillary refill < 3 seconds. Respiratory: Airway is patent Trachea midline Respiratory effort is even, unlabored, Respiratory pattern is regular, symmetrical. GI: Abdomen is round obese. : No signs and/or symptoms were reported regarding the genitourinary system. Derm: redness on the sacrum area. Musculoskeletal:. 23:20 Reassessment: EYES CLOSED. Respiratory: Airway is patent Respiratory effort is even, ha1 unlabored, Respiratory pattern is regular, symmetrical. 10/25 00:39 Reassessment: EYES CLOSED. Respiratory: Airway is patent Respiratory effort is even, ha1 unlabored, Respiratory pattern is regular, symmetrical. 01:00 Reassessment: EYES CLOSED. ha1 01:00 Respiratory: Airway is patent Respiratory effort is even, unlabored, Respiratory ha1 pattern is regular, symmetrical. 02:00 Reassessment: EYES CLOSED. Respiratory: Airway is patent Respiratory effort is even, ha1 unlabored, Respiratory pattern is regular, symmetrical. 03:00 Reassessment: EYES CLOSED. Respiratory: Airway is patent Respiratory effort is even, ha1 unlabored, Respiratory pattern is regular, symmetrical. 04:00 Reassessment: EYES CLOSED. Respiratory: Airway is patent Respiratory effort is even, ha1 unlabored, Respiratory pattern is regular, symmetrical. 05:10 Reassessment: EYES CLOSED. Respiratory: Airway is patent Respiratory effort is even, ha1 unlabored, Respiratory pattern is regular, symmetrical. Vital Signs: 10/24 21:09 BP 150 / 100; Pulse 120; Resp 24; Temp 100(R); Pulse Ox 89% on 2 lpm NC; br2 22:20 BP 157 / 94; Pulse 103; Resp 18 S; Pulse Ox 97% on 4 lpm NC; ha1 23:20 BP 171 / 83; Pulse 96; Resp 17 S; Pulse Ox 99% on 4 lpm NC; ha1 10/25 00:36 BP 158 / 58; Pulse 97; Resp 18 S; Temp 98.4(T); Pulse Ox 98% on 4 lpm NC; ha1 01:30 BP 154 / 80; Pulse 83; Resp 17 S; Pulse Ox 99% on R/A; ha1 02:30 BP 165 / 85; Pulse 85; Resp 17 S; Pulse Ox 97% on R/A; ha1 03:30 BP 134 / 72; Pulse 77; Resp 18; Pulse Ox 98% ; jj7 04:30 BP 111 / 62; Pulse 77; Resp 15; Pulse Ox 100% ; jj7 05:30 BP 116 / 59; Pulse 78; Resp 16; Temp 97.6(Ca); Pulse Ox 98% ; ha1 Aj Coma Score: 03:31 Eye Response: to voice(3). Motor Response: localizes pain(5). Verbal Response: sp4 incomprehensible(2). Total: 10. ED Course: 10/24 20:19 Patient arrived in ED. jj6 20:20 Constantin Marshall MD is Attending Physician. sp4 20:56 Chest Single View XRAY In Process Unspecified. EDMS 21:17 Triage completed. br2 21:17 Arm band placed on left wrist. br2 21:17 Patient has correct armband on for positive identification. Placed in gown. Bed in low br2 position. Call light in reach. Side rails up X 1. 21:17 Maintain EMS IV. Dressing intact. Site clean \T\ dry. Gauge \T\ site: 22G LEFT HAND. br 2 21:21 ABG Sent. br2 21:22 Rausch cath inserted, using sterile technique, 16 Fr., by me, balloon inflated, to br2 gravity drainage, urine specimen collected. 21:53 Carolina Flores, RN is Primary Nurse. br2 22:00 Chest Single View XRAY In Process Unspecified. EDMS 22:11 Urine Culture Sent. br2 22:12 Blood Culture Adult (2) Sent. br2 22:12 CBC with Diff Sent. br2 22:12 CMP Sent. br2 22:12 Lactate w/ 2H reflex if indic. Sent. br2 22:12 Protime (+inr) Sent. br2 22:42 COVID-19 Ag + Flu A+B Ag Sent. hw 23:00 Assisted provider with central line placement. Set up central line tray. Triple lumen ha1 line placed in right internal jugular. Line placed by Constantin Marshall MD Placement verified by CXR, blood return, Dressed with 4X4s, Tape, Tegaderm, Blood was collected. Patient tolerated well. Before procedure, did Practitioner(s) obtain informed consent? Yes. Patient \T\ family education about procedure, CLABSI prevention and S/S of infection? Yes. Time-out/Briefing performed prior to start of procedure? Yes. Was handwashing/sanitizing done immediately prior to procedure? Yes. Was patient positioned to in a way to prevent air embolism? Yes. Was procedure site sterilized? Yes, with chlorhexidine. Was the site allowed to dry? Yes. Was local anesthetic and/or sedation utilized? Yes. During the procedure, did the Practitioner(s) maintain a sterile field? Yes. Were unused ports clamped during insertion? Yes. Was blood aspirated from each lumen? Yes. 23:34 CT Chest, Abdomen, Pelvis - W/Contrast In Process Unspecified. EDMS 23:34 CT Head Brain wo Cont In Process Unspecified. EDMS 10/25 03:01 Josias Llamas MD is Hospitalizing Provider. sp4 06:03 Patient admitted, IV remains in place. ha1 Administered Medications: 10/24 21:00 Drug: Geodon IM 20 mg IM once Route: IM; Site: left vastus lateralis; br2 22:00 Follow up: Response: No adverse reaction; RASS: Drowsy (-1) ha1 21:40 Drug: Ativan IVP 2 mg IVP once Route: IVP; Site: left hand; br2 22:00 Follow up: Response: No adverse reaction; Marked relief of symptoms; Anxiety decreased ha1 22:11 Drug: vancoMYCIN IVPB 2 grams IVPB at calculated rate once Route: IVPB; Rate: br2 calculated rate; Site: right subclavian; 23:20 Follow up: Response: No adverse reaction; IV Status: Completed infusion; IV Intake: ha1 500ml 22:11 Drug: Cefepime IVPB 2 grams IVPB at 200 ml/hr once over 30 mins; (mix in NS 100 mL) br2 Route: IVPB; Rate: 200 ml/hr; Infused Over: 30 mins; Site: right subclavian; 22:50 Follow up: Response: No adverse reaction; IV Status: Completed infusion; IV Intake: ha1 100ml 22:11 Drug: Ondansetron IVP 4 mg IVP once; over 2 minutes Route: IVP; Site: left hand; br2 22:50 Follow up: Response: No adverse reaction; Marked relief of symptoms ha1 22:12 Drug: NS 0.9% IV 1000 ml IV at 1 bolus Per protocol; to be given as a bolus over 60 br2 minutes Route: IV; Rate: 1 bolus; Site: right subclavian; 23:20 Follow up: IV Status: Completed infusion j7 22:12 Drug: NS 0.9% IV 1000 ml IV at 1000 ml once; to be given as a bolus over 60 minutes br2 Route: IV; Rate: 1000 ml; Site: right subclavian; 23:20 Follow up: IV Status: Completed infusion jj7 22:12 Drug: Acetaminophen MS Suppository 650 mg MS once Route: MS; br2 23:00 Follow up: Response: No adverse reaction; Temperature is decreased ha1 Medication: 10/25 06:00 VIS not applicable for this client. jj7 Point of Care Testing: Blood Glucose: 10/24 21:17 Blood Glucose: 98 mg/dL; br2 Ranges: Intake: 22:50 IV: 100ml; Total: 100ml. ha1 23:20 IV: 500ml; Total: 600ml. ha1 Output: 21:22 Urine: 200ml (Rausch); Total: 200ml. br2 Outcome: 10/25 03:04 Decision to Hospitalize by Provider. sp4 06:03 Admitted to Med/surg accompanied by tech, via stretcher, room 431, Report called to shanti ROYAL FAXED TO 4TH FLOOR 06:03 Condition: good 06:04 Patient left the ED. shanti Signatures: Dispatcher [employer] EDMS Rebeka Dick jj6 Pema Jang RN RN ha1 Pete Andre RN RN jj7 Constantin Marshall MD MD sp4 Carolina Flores RN RN br2 Gay Doss Corrections: (The following items were deleted from the chart) 10/24 21:23 21:09 Chief complaint: EMS states: PT SENT FROM [facility] DUE TO AMS. PT IS br2 NORMALLY ORIENTED X2 AND IS VERBAL, BUT DOESN'T USUALLY MAKE SENSE. PER PENITENTIARY PT IS NON-VERBAL, LETHARGIC, DISTENDED ABDOMEN, LOW GRADE TEMP, LOW 02 SATS AT 89% \T\2L, HAS LEFT SIDE PARALYSIS AND HAS TWITCHING ON RIGHT UPPER EXT MORE THAN NORMAL. br2 10/25 03:20 00:36 BP 158 / 58; Pulse 97bpm; Resp 18bpm; Spontaneous; Pulse Ox 98% 4 lpm Nasal ha1 Cannula; ha1 06:37 05:30 BP 116 / 59; Pulse 78bpm; Resp 16bpm; Pulse Ox 98%; jj7 ha1 06:44 06:03 No provider procedures requiring assistance completed. jj7 ha1 06:44 06:03 Patient admitted, IV remains in place. jj7 1
--- NOTE | 2024-10-25 04:27 | P.HP ---
Certification for Inpatient Patient admitted to: Inpatient With expected LOS: >2 Midnights Practitioner: I am a practitioner with admitting privileges, knowledge of patient current condition, hospital course, and medical plan of care. Services: Services provided to patient in accordance with Admission requirements found in Title 42 Section 412.3 of the Code of Federal Regulations Patient History Date of Service: 10/25/24 Reason for admission: Fever altered mental status History of Present Illness: 74 yrs old Male with past medical history of atrial fibrillation on chronic anticoagulation, chronic diastolic congestive heart failure, previous CVA with residual left hemiparesis, insulin-dependent diabetes, GERD, hyperlipidemia, hypertension, schizoaffective disorder/BPD, CKD presents emergency department with complaints of generalized body pain and fatigue and fever and altered mental status. Patient is a poor historian hence most of the history is obtained from the chart review and also talking to the ER physician. Symptoms started 3 days ago and has been progressively getting worse and was brought to ER. Patient denies any chest pain or shortness of breath. No sick contacts. Patient was assessed in the ER and is admitted for further management of acute metabolic encephalopathy, UTI, bibasilar pneumonia, constipation Allergies No Known Allergies Allergy (Verified 05/28/23 21:44) Home medications list reviewed: Yes Home Medications: Acetaminophen [Tylenol] 650 mg PO Q6HP PRN 05/29/23 Apixaban [Eliquis *] 5 mg PO BID 05/29/23 Atorvastatin Calcium [Lipitor] 40 mg PO BEDTIME 05/29/23 Baclofen 5 mg PO TID 05/29/23 Cholecalciferol (Vitamin D3) [Vitamin D3] 2,000 unit PO DAILY 05/29/23 Divalproex Sodium 1,000 mg PO BID 05/29/23 Docusate [Colace Cap*] 100 mg PO DAILY 05/29/23 Gabapentin 200 mg PO TID 05/29/23 Insulin Glargine,Hum.rec.anlog [Lantus] 11 unit SQ BEDTIME 05/29/23 Lidocaine [Salonpas] 1 patch TOP DAILY 05/29/23 Melatonin 10 mg PO BEDTIME 05/29/23 Metformin HCl [Glucophage*] 850 mg PO BID 05/29/23 Metoprolol Tartrate [Lopressor*] 25 mg PO BID 05/29/23 Multivitamin [Multivitamins] 1 tab PO DAILY 05/29/23 Trazodone HCl 400 mg PO BEDTIME 05/29/23 Furosemide [Lasix*] 40 mg PO BID 09/21/24 Linagliptin [Tradjenta] 5 mg PO DAILY 09/21/24 Lisinopril [Zestril] 2.5 mg PO DAILY 09/21/24 Mag Hydroxide 8% [Milk Of Magnesia*] 60 ml PO DAILYPRN PRN 09/21/24 - Past Medical/Surgical History Diabetic: Yes Past Medical History: Reviewed- Non-Contributory -: CVA X3 -: HTN -: hyperlipidemia -: CHF -: GERD -: dysphagia -: left sided paralysis. -: DM2 -: insomnia -: cognitive communication deficit -: muscle weakness Past Surgical History: Reviewed- Non-Contributory -: fior Psychosocial/ Personal History: Resident of [facility] - Family History Family History: Reviewed- Non-Contributory - Family History Mother -: Hypertension - Social History Smoking Status: Former smoker Alcohol use: No CD- Drugs: No Caffeine use: No Review of Systems is unable to be obtained Physical Examination - Vital Signs Temperature: 99.8 F Blood Pressure: 132/76 Pulse: 78 Respirations: 18 Pulse Ox (%): 94 - Physical Exam General: Alert, Mild distress, Confused HEENT: Atraumatic, Normocephalic Respiratory: Clear to auscultation bilaterally, Crackles/rales Cardiovascular: Regular rate/rhythm, Normal S1 S2 Gastrointestinal: Soft and benign, W/out hepatosplenomegaly, Distended Musculoskeletal: No clubbing Integumentary: No rashes Neurological: Other (Alert, awake, confused) Lymphatics: No axilla or inguinal lymphadenopathy - Studies Laboratory Data (last 24 hrs) 10/24/24 10/24/24 10/24/24 21:48 21:48 21:48 WBC 9.70 Hgb 12.7 L Hct 38.4 L Plt Count 233 PT 14.6 H INR 1.30 APTT 29.7 Sodium 142 Potassium 3.4 L BUN 14 Creatinine 1.34 H Glucose 118 H Total Bilirubin 1.3 H AST 19 ALT 26 Alkaline Phosphatase 62 Assessment and Plan - Plan Severe sepsis Pyelonephritis Started on IV antibiotic Monitor closely on telemetry Will obtain cultures Change antibiotic as per the sensitivities Bibasilar pneumonia Started on IV antibiotic X-ray findings noted Will repeat x-ray in a.m. bronchodilators, Oxygen supplementation as needed Acute metabolic encephalopathy Monitor neuro vital signs CT head negative for any acute changes Constipation Started on lactulose Stool softeners Hypertension Antihypertensives titrated Continue home medications and titrate as needed Hyperlipidemia Continue statin CKD stage II Monitor renal parameters Electrolytes monitor and replace accordingly Diabetes Insulin sliding scale Accu-Chek before every meal and at bedtime GI/DVT prophylaxis Advanced directive full code Discharge Plan: Usp Plan to discharge in: 48 Hours - Advance Directives Does patient have a Living Will: No Does patient have a Durable POA for Healthcare: No - Code Status/Comfort Care Code Status: Full Code Time Spent Managing Pts Care (In Minutes): 54
[2024-10-25] MEDS ORDERED: ACETAMINOPHEN 325 MG TABLET PO PRN ×2 (04:32→05:25)
[2024-10-25] MEDS ORDERED: ALBUTEROL 2.5 MG/3 ML NEB SOL NEB PRN (04:32)
[2024-10-25] MEDS ORDERED: ONDANSETRON 4 MG/2 ML VIAL IV PRN (04:32)
[2024-10-25] MEDS ORDERED: GLUCAGON 1 MG/VIAL IM PRN ×2 (04:36→05:25)
[2024-10-25] MEDS ORDERED: D10W 125 ML IV PRN (04:36)
[2024-10-25] MEDS ORDERED: D50W 25 GM/50 ML SYRINGE IV PRN (05:25)
[2024-10-25] MEDS ORDERED: LACTULOSE 20 GM/30 ML UCUP PO PRN (05:28)
[2024-10-25] MEDS: INSULIN REGULAR (HUMAN) 100 UNIT/ML SQ SCH (07:30)
[2024-10-25] MEDS: NA CHLORIDE 0.9% 1,000 ML IV SCH (08:09)
[2024-10-25] MEDS: DIVALPROEX DR 500MG TAB PO SCH (09:00)
[2024-10-25] MEDS: LINAGLIPTIN 5 MG PO SCH (09:00)
[2024-10-25] MEDS: METOPROLOL TAR 25 MG TAB PO SCH (09:00)
[2024-10-25] MEDS: DOCUSATE NA 100 MG CAP PO SCH (09:00)
[2024-10-25] MEDS ORDERED: ENOXAPARIN 40 MG/0.4 ML SQ SCH (09:00)
[2024-10-25] MEDS: APIXABAN 5 MG TABLET PO SCH (09:00)
[2024-10-25] MEDS: AZITHROMYCIN IV 500 MG in NA CHLORIDE 0.9% 250 ML IVPB SCH (09:38)
[2024-10-25] MEDS: PIPER TAZO 3.375 GM in NA CHLORIDE 0.9% 100 ML IV SCH (09:39)
[2024-10-25] MEDS: KCL 20 MEQ/100 mL IVPB 20 MEQ/100 ML BAG IV SCH (11:01)
[2024-10-25] MEDS: TRAZODONE 50 MG TABLET PO SCH (21:00)
[2024-10-25] MEDS: ATORVASTATIN 40 MG TAB PO SCH (21:00)
[2024-10-25] MEDS: INSULIN GLARGINE 100 UNITS/ML SQ SCH (21:00)
--- NOTE | 2024-10-25 21:31 | P.DS ---
Discharge Date: 10/26/24 Disposition: TRANSFER TO RETIREMENT Discharge Condition: GOOD Reason for Admission: Fever altered mental status Brief History of Present Illness: Patient is a 74 yrs old Male with past medical history of atrial fibrillation on chronic anticoagulation, chronic diastolic congestive heart failure, previous CVA with residual left hemiparesis, insulin-dependent diabetes, GERD, hyperlipidemia, hypertension, schizoaffective disorder/BPD, CKD presents emergency department with complaints of generalized body pain and fatigue and fever and altered mental status. Patient is a poor historian hence most of the history is obtained from the chart review and also talking to the ER physician. Symptoms started 3 days ago and has been progressively getting worse and was brought to ER. Patient denies any chest pain or shortness of breath. No sick contacts. Patient was assessed in the ER and is admitted for further management of acute metabolic encephalopathy, UTI, bibasilar pneumonia, constipation Vital Signs/Physical Exam: Temp Pulse Resp BP Pulse Ox 98.1 F 86 18 154/60 H 94 10/25/24 20:00 10/25/24 20:00 10/25/24 20:00 10/25/24 20:00 10/25/24 20:00 General: Alert, Confused, Other (Aphasia) Laboratory Data at Discharge: WBC 9.70 thou/uL (4.3-10.9) 10/24/24 21:48 Hgb 12.7 g/dL (13.6-17.9) L 10/24/24 21:48 Hct 38.4 % (39.6-49.0) L 10/24/24 21:48 Plt Count 233 thou/uL (152-406) 10/24/24 21:48 PT 14.6 SECONDS (10-13.0) H 10/24/24 21:48 INR 1.30 10/24/24 21:48 APTT 29.7 SECONDS (27.2-37.4) 10/24/24 21:48 Sodium 142 mEq/L (136-145) 10/24/24 21:48 Potassium 3.4 mEq/L (3.5-5.1) L 10/24/24 21:48 BUN 14 mg/dL (7-18) 10/24/24 21:48 Creatinine 1.34 mg/dL (0.70-1.30) H 10/24/24 21:48 Glucose 118 mg/dL (74-106) H 10/24/24 21:48 Total Bilirubin 1.3 mg/dL (0.2-1.0) H 10/24/24 21:48 AST 19 U/L (15-37) 10/24/24 21:48 ALT 26 U/L (16-61) 10/24/24 21:48 Alkaline Phosphatase 62 U/L (45-117) 10/24/24 21:48 Home Medications: Acetaminophen [Tylenol] 650 mg PO Q6HP PRN 05/29/23 Apixaban [Eliquis *] 5 mg PO BID 05/29/23 Atorvastatin Calcium [Lipitor] 40 mg PO BEDTIME 05/29/23 Baclofen 5 mg PO TID 05/29/23 Cholecalciferol (Vitamin D3) [Vitamin D3] 2,000 unit PO DAILY 05/29/23 Divalproex Sodium 1,000 mg PO BID 05/29/23 Docusate [Colace Cap*] 100 mg PO DAILY 05/29/23 Gabapentin 200 mg PO TID 05/29/23 Insulin Glargine,Hum.rec.anlog [Lantus] 11 unit SQ BEDTIME 05/29/23 Lidocaine [Salonpas] 1 patch TOP DAILY 05/29/23 Melatonin 10 mg PO BEDTIME 05/29/23 Metformin HCl [Glucophage*] 850 mg PO BID 05/29/23 Metoprolol Tartrate [Lopressor*] 25 mg PO BID 05/29/23 Multivitamin [Multivitamins] 1 tab PO DAILY 05/29/23 Trazodone HCl 400 mg PO BEDTIME 05/29/23 Furosemide [Lasix*] 40 mg PO BID 09/21/24 Linagliptin [Tradjenta] 5 mg PO DAILY 09/21/24 Lisinopril [Zestril] 2.5 mg PO DAILY 09/21/24 Mag Hydroxide 8% [Milk Of Magnesia*] 60 ml PO DAILYPRN PRN 09/21/24 Physician Discharge Instructions: -DC IV and DC home -Follow-up with PCP in 1 to 2 weeks -Follow-up with Neurology in 1 to 2 weeks -Please call Dr. Ramirez at [phone] if any questions regarding hospital stay -Please call nursing station at [phone] if any nursing or medication questions -Return to the emergency room if symptoms worsen Diet: AHA Activity: Fall precautions Followup: OOT,OOT [Primary Care Provider] -
[2024-10-25] MEDS: CEFTRIAXONE 1,000 MG in NA CHLORIDE 0.9% 50 ML IVPB ONE (21:50)
[2024-10-26 06:51] LABS: Absolute Eosinophils 0.3 K/uL (0-0.5); Absolute Lymphocytes (CBC) 1.5 K/uL (0.7-4.9); Absolute Monocytes 0.4 K/uL (0.1-1.3); Absolute Neutrophil 4.3 K/uL (1.8-8.0); Basophils % 0.5 % (0-1.3); Eosinophils % 3.8 % (0-4.4); Hematocrit 30.6 % (39.6-49.0); Hemoglobin 10.2 g/dL (13.6-17.9); Lymphocytes % 23.3 % (15.3-44.8); MCH 30.3 pg (27.0-35.0); MCHC 33.2 g/dL (32.0-36.0); MCV 91.2 fL (80-100); MPV 8.2 fL (7.6-11.3); Monocytes % 6.7 % (3.3-12.3); Neutrophils % 65.7 % (41.7-73.7); Nucleated Red Blood Cells % 0.1 % (0-0); Platelets 198 thou/uL (152-406); RBC Red Blood Cell Count 3.36 M/uL (4.33-5.43); Red Cell Distribution Width 13.4 % (12.1-15.2)
[2024-10-26 07:02] LABS: Albumin 2.5 g/dL (3.4-5.0); Albumin/Globulin Ratio 0.6 (1.1-1.8); Anion Gap 6.6 mEq/L (5.0-15.0); Bilirubin Total 0.9 mg/dL (0.2-1.0); Globulin 4.1 g/dL (2.3-3.5); Potassium 3.6 mEq/L (3.5-5.1); Protein, Total 6.6 g/dL (6.4-8.2)
[2024-10-26] MEDS: KCL 20 MEQ/100 mL IVPB 20 MEQ/100 ML BAG IV SCH (07:46)
[2024-10-26] MEDS: BENZTROPINE 1 MG TAB PO ONE (10:43)
[2024-10-26] MEDS: VALPROATE SODIUM INJ 1,000 MG in NA CHLORIDE 0.9% 100 ML IV ONE (10:49)
--- NOTE | 2024-10-26 12:03 | EKG ---
Test Date: 2024-10-24 Test Time: 20:38:19 Board Design Engineer: HW MEASUREMENT RESULTS: Intervals: Rate: 119 CT: 174 QRSD: 88 QT: 338 QTc: 475 [place]: P: 61 CT: 174 QRS: 71 T: 52 INTERPRETIVE STATEMENTS: Sinus tachycardia with occasional premature ventricular complexes Otherwise normal ECG Compared to ECG 09/21/2024 15:41:42 Ventricular premature complex(es) now present Atrial premature complex(es) no longer present Electronically Signed On 10-26-24 12:00:02 CDT by Deep Doshi
[2024-10-26] MEDS: BACLOFEN 10 MG TAB PO SCH (13:47)
[2024-10-26] MEDS ORDERED: ALBUTEROL 2.5 MG/3 ML NEB SOL NEB PRN (16:32)
[2024-10-26] MEDS: METHYLPREDNISOLONE 125 MG INJ IV ONE (17:18)
[2024-10-26] MEDS: VALPROATE SODIUM INJ 500 MG in NA CHLORIDE 0.9% 100 ML IV SCH (17:19)
[2024-10-26] MEDS: BENZTROPINE 1 MG TAB PO SCH (21:00)
--- NOTE | 2024-10-27 06:33 | P.PN ---
Subjective Date of Service: 10/26/24 Spoke to the retirement and they are concerned that patient has dystonic movements are brand-new. He had not been doing this; He has also been more progressively weak and with dysphagia and dysarthria. Patient however does have significant encephalomalacia on prior imaging studies dating back almost 5 to 6 years. He may have progressive neurologic deterioration. Neurology consulted. Awaiting for further workup at this time. Physical therapy and speech therapy working with patient as well. Review of Systems is unable to be obtained Physical Examination - Vital Signs Temperature: 98.1 F Blood Pressure: 142/71 Pulse: 61 Respirations: 17 Pulse Ox (%): 92 - Physical Exam General: Alert, In no apparent distress, Confused, Other (Aphasic) Respiratory: Clear to auscultation bilaterally, Normal air movement Cardiovascular: Regular rate/rhythm, Normal S1 S2, No murmurs Gastrointestinal: Normal bowel sounds, Soft and benign, Non-distended, No tenderness, Ascites Musculoskeletal: No clubbing, No swelling, No tenderness Neurological: Abnormal gait, Abnormal speech, Abnormal strength, Abnormal tone - Studies Medications List Reviewed: Yes Assessment & Plan - Problems (Diagnosis) (1) Dystonia Current Visit: Yes Status: Acute (2) Aphasia Current Visit: Yes Status: Acute (3) History of CVA with residual deficit Current Visit: No Status: Chronic (4) Altered mental status Onset Date: 12/04/17 Current Visit: No Status: Acute (5) Atrial fibrillation Current Visit: No Status: Acute (6) Diabetes Current Visit: No Status: Chronic (7) History of hypertension Current Visit: No Status: Chronic - Plan Plan: 1. Patient with aphasia and dystonic reaction; patient with a history of large CVA with encephalomalacia; this could be progressive neurologic deterioration. Placed on Cogentin for his dystonic reaction. Neurology consulted. Imaging studies do not show any acute heart. Spoke to retirement and he has had change in his speech and his dystonia over the last month. Speech therapy saw the patient and pured diet recommended. Continue with range of motion exercises. Patient is already bedbound and really no significant change in his long-term neurologic status. However we will try to get him seen by neurology for further treatment of his dystonia and aphasia workup. 2. History of CVA with encephalomalacia; continue with antiplatelet therapy and statin therapy 3. History of atrial fibrillation; continue with medication for rate control and anticoagulation 4. UTI- cultures pending 5. GI DVT prophylaxis Discharge Plan: Halfway Plan to discharge in: 48 Hours - Advance Directives Does patient have a Living Will: No Does patient have a Durable POA for Healthcare: No - Code Status/Comfort Care Code Status: Full Code Critical Care: No Time Spent Managing PTS Care (In Minutes): 35
[2024-10-27 06:55] LABS: Anion Gap 8.9 mEq/L (5.0-15.0); Potassium 3.9 mEq/L (3.5-5.1)
[2024-10-27] MEDS: Meropenem 500 MG in NA CHLORIDE 0.9% 100 ML IV SCH ×2 (08:44→13:10)
--- NOTE | 2024-10-27 15:52 | P.PN ---
Subjective Date of Service: 10/27/24 Chief Complaint: Fever altered mental status Subjective: Not able to obtain history from the patient, minimal communication. Looks comfortable in the bed. Objective: General appearance: Alert and comfortable CVS: Normal S1 and S2 Lungs: Clear to auscultation bilaterally Abdomen: Soft, bowel sounds present, no tenderness Extremities: No lower extremity edema Physical Examination - Vital Signs Temperature: 98.5 F Blood Pressure: 124/82 Pulse: 60 Respirations: 16 Pulse Ox (%): 95 - Studies Microbiology Data (last 24 hrs): 10/24/24 20:30 Clean Catch Urine Meh[place] Count - Final >100,000 CFU/ML. 10/24/24 20:30 Clean Catch Urine - Final Escherichia Coli Esbl Medications List Reviewed: Yes Assessment And Plan - Plan 1. Patient with aphasia and dystonic reaction; patient with a history of large CVA with encephalomalacia; this could be progressive neurologic deterioration. Placed on Cogentin for his dystonic reaction. Neurology consulted. Imaging studies do not show any acute infarct. Spoke to long-term by Dr. Ramirez, he has had change in his speech and his dystonia over the last month. Speech therapy saw the patient and pured diet recommended. Continue with range of motion exercises. Patient is already bedbound and really no significant change in his long-term neurologic status. However we will try to get him seen by neurology for further treatment of his dystonia and aphasia workup. 2. History of CVA with encephalomalacia; continue with antiplatelet therapy and statin therapy 3. History of atrial fibrillation; continue with medication for rate control and anticoagulation 4. UTI- cultures ESBL e.coli, cont meropenam 5. Pneumonia: add vanc in addition to merrem 6. Chronic anemia: Monitor closely. 7. Ascending aortic aneurysm, 4 cm, follow-up with PCP. 8. Bilateral gynecomastia on CT scan: Follow-up with PCP, consider mammogram. 9. Enlarged prostate on CT scan: Follow-up with PCP. 10. Chronic left hip fluid collection: Follow-up with PCP. Plan discussed the nursing staff and case management team.
[2024-10-27] MEDS: Meropenem 1,000 MG in NA CHLORIDE 0.9% 100 ML IV SCH (16:35)
[2024-10-27] MEDS: NA CHLORIDE 0.9% 0 ML ONE (17:22)
[2024-10-27] MEDS: VANCOMYCIN 2.75 GM in NA CHLORIDE 0.9% 500 ML IVPB ONE (17:30)
[2024-10-28 00:29] LABS: Arterial Blood Carboxyhemoglob 0.9 % (0-1.5); Blood Gas Oxyhemoglobin 60.1 % (94-97); Blood Gas THB 11.5 g/dl (12-18); Blood O2 Saturation 61.2 % (92-98.5)
--- NOTE | 2024-10-28 01:04 | RAD REPORT ---
EXAM DESCRIPTION: Chest Single View CLINICAL HISTORY: aspiration COMPARISON: 10/24/2024 FINDINGS: 1 view(s) of the chest. Tubes and lines: Right IJ central venous catheter tip in the SVC. Cardiomediastinal silhouette: Atherosclerotic calcification of the thoracic aorta. Heart is not enlar ged. Lungs: Low lung volumes. No pneumothorax. Mild perihilar opacities. Small pleural effusions. Bones: No acute osseous abnormality. Degenerative change of the spine and shoulders. Upper abdomen: No abnormality identified. IMPRESSION: Bilateral opacities concerning for bilateral pneumonic process. Likely small pleural effusions. Electronically signed by: Johann Charles DO 10/27/2024 11:09 PM CDT RP [id number] Due to temporary technical issues with the PACS/Reactivity reporting system, reports are being ted d by the in-house radiologist without review as a courtesy to ensure prompt reporting the interpreting radiologist is fully responsible for the content of the report. Transcribed Date/Time: 10/28/2024 1:04 AM
[2024-10-28] MEDS: FUROSEMIDE 40 MG/4 ML VIAL IV ONE (01:55)
[2024-10-28 06:29] LABS: Absolute Basophils 0.1 K/uL (0-0.5); Absolute Eosinophils 0.2 K/uL (0-0.5); Absolute Lymphocytes (CBC) 1.4 K/uL (0.7-4.9); Absolute Monocytes 0.6 K/uL (0.1-1.3); Absolute Neutrophil 8.9 K/uL (1.8-8.0); Basophils % 0.7 % (0-1.3); Eosinophils % 1.6 % (0-4.4); Hematocrit 37.5 % (39.6-49.0); Hemoglobin 12.3 g/dL (13.6-17.9); Lymphocytes % 12.7 % (15.3-44.8); MCH 29.8 pg (27.0-35.0); MCHC 32.8 g/dL (32.0-36.0); MCV 90.6 fL (80-100); Monocytes % 5.3 % (3.3-12.3); Neutrophils % 79.7 % (41.7-73.7); Nucleated Red Blood Cells % 0.1 % (0-0); Platelets 262 thou/uL (152-406); RBC Red Blood Cell Count 4.14 M/uL (4.33-5.43); Red Cell Distribution Width 13.3 % (12.1-15.2)
[2024-10-28 06:47] LABS: Anion Gap 10.2 mEq/L (5.0-15.0); Potassium 3.2 mEq/L (3.5-5.1)
[2024-10-28] MEDS: METOPROLOL TAR 50 MG TAB PO SCH (09:26)
[2024-10-28] MEDS: METOPROLOL TARTRATE 5 MG/5 ML INJ IV SCH (10:32)
[2024-10-28] MEDS ORDERED: VANCOMYCIN 2 GM in NA CHLORIDE 0.9% 500 ML IVPB SCH (11:00)
--- NOTE | 2024-10-28 12:40 | P.PN ---
Subjective Date of Service: 10/28/24 Chief Complaint: Fever altered mental status Subjective: Not able to obtain history from the patient, minimal communication. Looks comfortable in the bed. As per RN he was aspirating Objective: General appearance: Alert and comfortable CVS: Normal S1 and S2 Lungs: Clear to auscultation bilaterally Abdomen: Soft, bowel sounds present, no tenderness Extremities: No lower extremity edema Physical Examination - Vital Signs Temperature: 98.3 F Blood Pressure: 132/69 Pulse: 88 Respirations: 16 Pulse Ox (%): 92 - Studies Medications List Reviewed: Yes Assessment And Plan - Plan 1. Patient with aphasia and dystonic reaction; patient with a history of large CVA with encephalomalacia; this could be progressive neurologic deterioration. Placed on Cogentin for his dystonic reaction. Neurology consulted. Imaging studies do not show any acute infarct. Spoke to assisted by Dr. Ramirez, he has had change in his speech and his dystonia over the last month. Continue with range of motion exercises. Patient is already bedbound and really no significant change in his long-term neurologic status. -Notified Dr. Carroll today to eval re: dystonia and aphasia workup. 2. History of CVA with encephalomalacia; continue with antiplatelet therapy and statin therapy 3. History of atrial fibrillation; continue with medication for rate control and anticoagulation, tachy this AM, changed metoprolol to IV, change eliquis to lovenox for now 4. UTI- cultures ESBL e.coli, cont meropenam 5. Pneumonia: add vanc in addition to merrem, ?aspiration 6. Chronic anemia: Monitor closely. 7. Ascending aortic aneurysm, 4 cm, follow-up with PCP. 8. Bilateral gynecomastia on CT scan: Follow-up with PCP, consider mammogram. 9. Enlarged prostate on CT scan: Follow-up with PCP. 10. Chronic left hip fluid collection: Follow-up with PCP. Plan discussed the nursing staff and case management team. d/w patient's brother at bedside
[2024-10-28] MEDS: LORazepam 2 MG/ML VIAL IV ONE (12:56)
--- NOTE | 2024-10-28 13:20 | RAD REPORT ---
EXAM: CT brain without contrast HISTORY: Seizure COMPARISON: October 24, 2024 TECHNIQUE: Multiple contiguous axial images were obtained and a CT of the brain without contrast.. Sagittal and coronal reconstruction performed. Automated exposure control, adjustment of the mA and/or kV according to patient size, and/or iterative reconstruction. Unless otherwise specified, incidental f indings do not require dedicated imaging follow-up FINDINGS: An intracranial bleed is not seen No hydrocephalus. No extra-axial fluid collection noted Large area of encephalomalacia right basal ganglia and right cerebrum with volume loss. No fluid within the visualized sinuses or mastoids noted. IMPRESSION: No acute intracranial abnormality noted. If the patient continues to have symptoms to suggest an acute intracranial abnormality then MRI of th e brain would be recommended.
[2024-10-28] MEDS: levETIRAcetam 1,000 MG in NA CHLORIDE 0.9% 100 ML IV ONE (13:31)
[2024-10-28] MEDS: KCL 20 MEQ/100 mL IVPB 20 MEQ/100 ML BAG IV SCH (13:35)
[2024-10-28] MEDS: NA CHLORIDE 0.9% 1,000 ML IV SCH (13:35)
--- NOTE | 2024-10-28 14:04 | CON ---
History Of Present Illness: This is a 74-year-old male, known to me from prison. 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 The patient also has tremo r, insulin-dependent diabetes mellitus, gastroesophageal reflux disease, hyperlipidemia, hypertension , schizoaffective disorder, bipolar disorder, chronic kidney disease, coming to the emergency room wi th generalized body pains, fatigue, fever, and altered mental status. Past Medical History: As per HPI. Social History: Nonsmoker, nondrinker. shelter resident. Family History: Noncontributory. Medications: Meropenem, vancomycin. See MARs for other medications. Allergies: NO KNOWN DRUG ALLERGIES. Review of Systems: Unable to obtain. Physical Examination: General: This is a 74-year-old male, lying in bed with constant tremor and tics to the head region. Vital Signs: Temperature 98, pulse 88, respirations 16, blood pressure 132/69. HEENT: Unremarkable. Neck: Supple. Lungs: Basal crackles. Heart: S1, S2. Regular. Abdomen: Soft, nontender. Bowel sounds present. Extremities: Trace edema. Laboratory Data: Shows WBC 11.2, hemoglobin 12.3, platelets are 262. Chemistry shows BUN of 8, crea tinine 1.03. BNP is 879. Albumin level is 2.5. Urine cultures are growing E coli, ESBL. Blood cul tures are negative to date. Assessment And Plan: 1. Altered mental status in a 74-year-old male with multiple medical problems including tremor and ti cs with a history of stroke. 2. Urinary tract infection secondary to Escherichia coli, extended-spectrum beta-lactamase. Currentl y, on meropenem and vancomycin. 3. Leukocytosis. 4. Anemia of chronic disease. 5. Continue current treatment. 6. If hemorrhoids are negative, can continue with meropenem and monitor signs of infection with WBCs and fever trends. 7. I agree with neurology evaluation to rule out seizure activity and adjust seizure medication. Thank you for the consult. NF/MODL Voice ID: [id number] Report ID: [id number]
[2024-10-28] MEDS: VANCOMYCIN 2 GM in NA CHLORIDE 0.9% 500 ML IVPB SCH (17:28)
[2024-10-28] MEDS: levETIRAcetam 500 MG in NA CHLORIDE 0.9% 100 ML IV SCH (20:26)
[2024-10-28] MEDS: ENOXAPARIN 100 MG/ML SYR SQ SCH (20:26)
[2024-10-29 06:23] LABS: Absolute Eosinophils 0.4 K/uL (0-0.5); Absolute Lymphocytes (CBC) 1.4 K/uL (0.7-4.9); Absolute Monocytes 0.5 K/uL (0.1-1.3); Absolute Neutrophil 6.5 K/uL (1.8-8.0); Basophils % 0.3 % (0-1.3); Eosinophils % 4.4 % (0-4.4); Hematocrit 34.8 % (39.6-49.0); Hemoglobin 11.8 g/dL (13.6-17.9); Lymphocytes % 15.7 % (15.3-44.8); MCH 30.5 pg (27.0-35.0); MCHC 33.7 g/dL (32.0-36.0); MCV 90.3 fL (80-100); MPV 8.6 fL (7.6-11.3); Monocytes % 5.1 % (3.3-12.3); Neutrophils % 74.5 % (41.7-73.7); Nucleated Red Blood Cells % 0.1 % (0-0); Platelets 214 thou/uL (152-406); RBC Red Blood Cell Count 3.86 M/uL (4.33-5.43); Red Cell Distribution Width 13.7 % (12.1-15.2)
[2024-10-29 06:44] LABS: Anion Gap 8.3 mEq/L (5.0-15.0); Potassium 3.3 mEq/L (3.5-5.1)
[2024-10-29] MEDS: KCL 20 MEQ/100 mL IVPB 100 ML IV SCH (08:29)
--- NOTE | 2024-10-29 08:39 | EKG ---
Test Date: 2024-10-28 Test Time: 03:21:11 Corporate Concierge: JACINTA MEASUREMENT RESULTS: Intervals: Rate: 146 NH: 152 QRSD: 86 QT: 258 QTc: 402 [place]: P: NH: 152 QRS: 36 T: 59 INTERPRETIVE STATEMENTS: Sinus tachycardia Otherwise normal ECG Compared to ECG 10/24/2024 20:38:19 Ventricular premature complex(es) no longer present Electronically Signed On 10-29-24 08:36:07 CDT by Deep Doshi
--- NOTE | 2024-10-29 12:43 | P.PN ---
Subjective Date of Service: 10/29/24 Chief Complaint: Fever altered mental status Subjective: Not able to obtain history from the patient. Looks comfortable in the bed but lethargic. Objective: General appearance: Alert and comfortable CVS: Normal S1 and S2 Lungs: Clear to auscultation bilaterally Abdomen: Soft, bowel sounds present, no tenderness Extremities: No lower extremity edema Physical Examination - Vital Signs Temperature: 97.6 F Blood Pressure: 133/51 Pulse: 75 Respirations: 20 Pulse Ox (%): 100 - Studies Medications List Reviewed: Yes Assessment And Plan - Plan 1. Seizure: patient with a history of large CVA with encephalomalacia; this coul d be progressive neurologic deterioration. Placed on Cogentin for ? dystonic reaction. Neurology consulted, they feel it's seizure, DC cogentin. Imaging studies do not show any acute infarct. Patient is already bedbound and really no significant change in his long-term neurologic status. -get MRI scan 2. History of CVA with encephalomalacia; continue with antiplatelet therapy and statin therapy 3. History of atrial fibrillation; continue with medication for rate control and anticoagulation, metoprolol and eliquis, change to IV lopressor and lovenox for now 4. UTI- cultures ESBL e.coli, cont meropenam 5. Pneumonia: add vanc in addition to merrem, ?aspiration 6. Chronic anemia: Monitor closely. 7. Ascending aortic aneurysm, 4 cm, follow-up with PCP. 8. Bilateral gynecomastia on CT scan: Follow-up with PCP, consider mammogram. 9. Enlarged prostate on CT scan: Follow-up with PCP. 10. Chronic left hip fluid collection: Follow-up with PCP. 11. Hypokalemia: Replace and monitor. Plan discussed the nursing staff and case management team.
[2024-10-29] MEDS: LORazepam 2 MG/ML VIAL IV ONE (15:25)
--- NOTE | 2024-10-29 16:34 | RAD REPORT ---
EXAMINATION: MRI BRAIN WITHOUT CONTRAST CLINICAL INDICATION: Seizure TECHNIQUE: Multiplanar multisequence MR images of the brain were obtained without intravenous contras t. Unless otherwise specified, incidental findings do not require dedicated imaging follow-up. COMPARISON: October 25, [address] FINDINGS: Large area of cystic encephalomalacia right cerebrum and right basal ganglia. Associated cerebral vol ume loss. Diffusion weighted/ADC mapping does not demonstrate evidence of an acute infarction. No hydrocephalus No extra-axial fluid collection. No fluid within the sinuses/mastoid seen IMPRESSION: No acute intracranial abnormalities displayed
[2024-10-29] MEDS: D5 0.9 NS 1,000 ML IV ONE (16:42)
[2024-10-29] MEDS: D5 0.9 NS 1,000 ML IV SCH (16:53)
--- NOTE | 2024-10-29 18:59 | PN ---
Subjective: The patient lying in bed, somnolent, in ICU, not in any acute distress at this time. Objective: Vital Signs: Temperature 97, pulse 77, respirations 20, blood pressure 155/49. Lungs: Basal crackles. Heart: S1, S2. Regular. Abdomen: Soft, nontender. Bowel sounds present. Extremities: Trace edema. Laboratory Data: WBC 8.8, hemoglobin 11.8, platelets are 214. Chemistry shows BUN of 8, creatinine 0.8. Urinalysis shows wbc of 10 to 20. Micro data shows E coli ESBL. Chest x-ray done day before y shows bilateral opacities concerning for bilateral pneumonic process, likely small pleural e ffusion. Assessment And Plan: The patient with urosepsis. We will continue Merrem, stop vancomycin. Leukocytosis, improved. Anemia of chronic disease. Pneumonitis versus congestive heart failure. Continue current treatment and monitor signs of infection, WBCs, and fever trends. NF/MODL Voice ID: [id number] Report ID: [id number]
[2024-10-30 06:28] LABS: Absolute Eosinophils 0.3 K/uL (0-0.5); Absolute Lymphocytes (CBC) 1.5 K/uL (0.7-4.9); Absolute Monocytes 0.4 K/uL (0.1-1.3); Absolute Neutrophil 5.2 K/uL (1.8-8.0); Basophils % 0.3 % (0-1.3); Eosinophils % 4.5 % (0-4.4); Hematocrit 32.4 % (39.6-49.0); Hemoglobin 10.9 g/dL (13.6-17.9); Lymphocytes % 20.3 % (15.3-44.8); MCH 30.3 pg (27.0-35.0); MCHC 33.6 g/dL (32.0-36.0); MCV 90.2 fL (80-100); MPV 8.5 fL (7.6-11.3); Monocytes % 5.1 % (3.3-12.3); Neutrophils % 69.8 % (41.7-73.7); Nucleated Red Blood Cells % 0.1 % (0-0); Platelets 217 thou/uL (152-406); RBC Red Blood Cell Count 3.59 M/uL (4.33-5.43); Red Cell Distribution Width 13.3 % (12.1-15.2)
[2024-10-30 06:44] LABS: Anion Gap 7.3 mEq/L (5.0-15.0); Magnesium 1.7 mg/dL (1.6-2.4); Phosphorus 2.1 mg/dL (2.5-4.9); Potassium 3.3 mEq/L (3.5-5.1)
[2024-10-30] MEDS: POTASSIUM PHOS IN 0.9 % NACL 15 MMOL/250 ML BAG IV ONE (08:10)
[2024-10-30] MEDS: MAGNESIUM SULFATE 1 gm IVPB 1 GM/100 ML BAG IV ONE (08:11)
[2024-10-30] MEDS: KCL 20 MEQ/100 mL IVPB 20 MEQ/100 ML BAG IV SCH (11:47)
--- NOTE | 2024-10-30 13:35 | P.PN ---
Subjective Date of Service: 10/30/24 Chief Complaint: Fever altered mental status Subjective: Not able to obtain history from the patient. Looks comfortable in the bed but lethargic. Objective: General appearance: Lethargic and comfortable CVS: Normal S1 and S2 Lungs: Clear to auscultation bilaterally Abdomen: Soft, bowel sounds present, no tenderness Extremities: No lower extremity edema Physical Examination - Vital Signs Temperature: 97.6 F Blood Pressure: 162/78 Pulse: 64 Respirations: 19 Pulse Ox (%): 100 - Studies Microbiology Data (last 24 hrs): 10/24/24 21:30 Blood - Blood Aerobic Blood Culture - Final No growth in 5 days. 10/24/24 21:30 Blood - Blood Anaerobic Blood Culture - Final No growth in 5 days. 10/24/24 21:48 Blood - Blood Aerobic Blood Culture - Final No growth in 5 days. 10/24/24 21:48 Blood - Blood Anaerobic Blood Culture - Final No growth in 5 days. Medications List Reviewed: Yes Assessment And Plan - Plan 1. Seizure: patient with a history of large CVA with encephalomalacia; this could be progressive neurologic deterioration. Placed on Cogentin for ? dystonic reaction. Neurology consulted, they feel it's seizure, DC cogentin. Imaging studies do not show any acute infarct. Patient is already bedbound and really no significant change in his long-term neurologic status. -MRI scan neg d/w brother shyla at bedside, overall poor prognosis, change to DNR. NO feeding tube at this time, iv fluids for now, discussed about hospice, brother will think about it and get back to us 2. History of CVA with encephalomalacia; continue with antiplatelet therapy and statin therapy 3. History of atrial fibrillation; continue with medication for rate control an d anticoagulation, was on metoprolol and eliquis, changed to IV lopressor and lovenox for now 4. UTI- cultures ESBL e.coli, cont meropenam 5. Pneumonia: abx as per ID 6. Chronic anemia: Monitor closely. 7. Ascending aortic aneurysm, 4 cm, follow-up with PCP. 8. Bilateral gynecomastia on CT scan: Follow-up with PCP, consider mammogram. 9. Enlarged prostate on CT scan: Follow-up with PCP. 10. Chronic left hip fluid collection: Follow-up with PCP. 11. Hypokalemia, hypophosphatemia: Replace and monitor. Plan discussed the nursing staff and case management team. d/w brother at [facility].
[2024-10-30] MEDS: ALOGLIPTIN BENZOATE 12.5 MG TABLET PO SCH (14:00)
[2024-10-30] MEDS: METOPROLOL TARTRATE 5 MG/5 ML INJ IV SCH (14:57)
--- NOTE | 2024-10-30 20:49 | P.PN ---
Date of Service: 10/30/24 Subjective: The patient lying in bed, in ICU, not in any acute distress at this time. Not responsive, encephalopathy Objective: Temp Pulse Resp BP Pulse Ox 97.8 F 67 17 117/86 99 10/30/24 16:00 10/30/24 19:00 10/30/24 19:00 10/30/24 19:00 10/30/24 19:00 Physical Exam General: Obese, not in distress Neuro:encephalopathic Lungs: Basal crackles. On O2 NC 2L Heart: S1, S2. Regular. Abdomen: Soft, nontender. Bowel sounds present. Extremities: Trace edema. GI: urine orange Brain MRI: 10/29/24 No acute intracranial abnormalities displayed CT brain w/o contrast: 10/28/24 No acute intracranial abnormalities EK10/28/24 Sinus tachycardia .Otherwise normal ECG Chest xray 10/28/24 Bilateral opacities concerning for bilateral pneumonic process. Likely small pleural effusions Microbiology 10/24/24: blood cx no growth Abx: Meropenem Hematology: WBC 7.50, Hemoglobin 10.9, Platelet 217 Chemistry: BUN 7, Creatinine 0.74 Urine culture 10/24/24 E coli ESBL Assessment/Plan 1. Urosepsis monitor for sign of infection, WBC/fever continue Meropenum Leukocytosis, improved 2. Anemia of chronic disease. defer to primary 3. Pneumonitis versus congestive heart failure. Defer to primary Case discussed with DR. Penaloza during round in agreement
[2024-10-31 05:47] LABS: Absolute Eosinophils 0.3 K/uL (0-0.5); Absolute Lymphocytes (CBC) 1.4 K/uL (0.7-4.9); Absolute Monocytes 0.4 K/uL (0.1-1.3); Basophils % 0.4 % (0-1.3); Eosinophils % 3.5 % (0-4.4); Hematocrit 34.5 % (39.6-49.0); Hemoglobin 11.5 g/dL (13.6-17.9); Lymphocytes % 17.7 % (15.3-44.8); MCH 30.1 pg (27.0-35.0); MCHC 33.3 g/dL (32.0-36.0); MCV 90.2 fL (80-100); Monocytes % 4.5 % (3.3-12.3); Neutrophils % 73.9 % (41.7-73.7); Platelets 232 thou/uL (152-406); RBC Red Blood Cell Count 3.82 M/uL (4.33-5.43); Red Cell Distribution Width 13.9 % (12.1-15.2)
[2024-10-31 05:57] LABS: Anion Gap 4.3 mEq/L (5.0-15.0); Magnesium 1.6 mg/dL (1.6-2.4); Phosphorus 2.1 mg/dL (2.5-4.9); Potassium 3.3 mEq/L (3.5-5.1)
[2024-10-31] MEDS: MAGNESIUM SULFATE 1 gm IVPB 1 GM/100 ML BAG IV ONE (06:31)
[2024-10-31] MEDS: POTASSIUM PHOS IN 0.9 % NACL 15 MMOL/250 ML BAG IV ONE (06:31)
[2024-10-31] MEDS: KCL 20 MEQ/100 mL IVPB 20 MEQ/100 ML BAG IV SCH (08:35)
[2024-10-31] MEDS: SCOPOLAMINE HYDROBROMIDE PATCH TD SCH (10:37)
--- NOTE | 2024-10-31 12:19 | P.PN ---
Subjective Date of Service: 10/31/24 Chief Complaint: Fever altered mental status Subjective: Not able to obtain history from the patient. Looks comfortable in the bed but lethargic. Objective: General appearance: Lethargic and comfortable, opens eyes to voice. CVS: Normal S1 and S2 Lungs: Clear to auscultation bilaterally Abdomen: Soft, bowel sounds present, no tenderness Extremities: No lower extremity edema Physical Examination - Vital Signs Temperature: 97.9 F Blood Pressure: 174/76 Pulse: 59 Respirations: 25 Pulse Ox (%): 99 - Studies Medications List Reviewed: Yes Assessment And Plan - Plan 1. Seizure: patient with a history of large CVA with encephalomalacia; this could be progressive neurologic deterioration. Placed on Cogentin for ? dystonic reaction. Neurology consulted, they feel it's seizure, DC'd cogentin. Imaging studies do not show any acute infarct. Patient is already bedbound and really no significant change in his long-term neurologic status. -MRI scan neg d/w brothmarcello [place] at bedside on 10/30, overall poor prognosis, changed to DNR. NO feeding tube at this time, iv fluids for now, discussed about hospice, brother will think about it and get back to us 2. History of CVA with encephalomalacia; continue with antiplatelet therapy and statin therapy 3. History of atrial fibrillation; continue with medication for rate control and anticoagulation, was on metoprolol and eliquis, changed to IV lopressor and lovenox for now 4. UTI- cultures ESBL e.coli, cont meropenam 5. Pneumonia: abx as per ID 6. Chronic anemia: Monitor closely. 7. Ascending aortic aneurysm, 4 cm, follow-up with PCP. 8. Bilateral gynecomastia on CT scan: Follow-up with PCP, consider mammogram. 9. Enlarged prostate on CT scan: Follow-up with PCP. 10. Chronic left hip fluid collection: Follow-up with PCP. 11. Hypokalemia, hypophosphatemia: Replace and monitor. Plan discussed the nursing staff and case management team. d/w brother at bed side yesterday, if no improvement over the weekend, he is considering hospice.
[2024-10-31] MEDS: D5 0.9 NS 1,000 ML IV SCH (15:30)
[2024-10-31] MEDS: HYDRALAZINE HCL 20 MG/ML VIAL IV PRN (16:26)
[2024-10-31] MEDS: dilTIAZem HCL 25 MG/5 ML VIAL IV ONE ×2 (18:18→18:19)
[2024-10-31] MEDS: NA CHLORIDE 0.9% 100 ML ONE (18:20)
[2024-10-31] MEDS ORDERED: dilTIAZem HCL 25 MG/5 ML VIAL IV ONE (18:47)
[2024-10-31] MEDS: DILTIAZEM INJ 125 MG/25 ML 125 MG in NA CHLORIDE 0.9% 100 ML IV SCH (19:00)
[2024-11-01 05:20] LABS: Absolute Basophils 0.1 K/uL (0-0.5); Absolute Eosinophils 0.2 K/uL (0-0.5); Absolute Lymphocytes (CBC) 1.3 K/uL (0.7-4.9); Absolute Monocytes 0.4 K/uL (0.1-1.3); Absolute Neutrophil 6.8 K/uL (1.8-8.0); Basophils % 0.7 % (0-1.3); Eosinophils % 2.4 % (0-4.4); Hematocrit 34.4 % (39.6-49.0); Hemoglobin 11.3 g/dL (13.6-17.9); Lymphocytes % 14.8 % (15.3-44.8); MCV 90.9 fL (80-100); Monocytes % 4.1 % (3.3-12.3); Platelets 231 thou/uL (152-406); RBC Red Blood Cell Count 3.78 M/uL (4.33-5.43); Red Cell Distribution Width 13.7 % (12.1-15.2)
[2024-11-01 05:36] LABS: Anion Gap 9.2 mEq/L (5.0-15.0); Magnesium 1.7 mg/dL (1.6-2.4); Phosphorus 2.5 mg/dL (2.5-4.9); Potassium 3.2 mEq/L (3.5-5.1)
[2024-11-01] MEDS: MAGNESIUM SULFATE 1 gm IVPB 1 GM/100 ML BAG IV ONE (06:18)
[2024-11-01] MEDS: KCL 20 MEQ/100 mL IVPB 20 MEQ/100 ML BAG IV SCH (06:18)
[2024-11-01] MEDS: POTASSIUM PHOS IN 0.9 % NACL 15 MMOL/250 ML BAG IV ONE (08:44)
--- NOTE | 2024-11-01 10:52 | P.PN ---
Subjective Date of Service: 11/01/24 Chief Complaint: Fever altered mental status Subjective: Not able to obtain history from the patient. Looks comfortable in the bed but lethargic. Objective: General appearance: Lethargic and comfortable CVS: Normal S1 and S2 Lungs: Clear to auscultation bilaterally Abdomen: Soft, bowel sounds present, no tenderness Extremities: No lower extremity edema Physical Examination - Vital Signs Temperature: 99.1 F Blood Pressure: 148/74 Pulse: 61 Respirations: 30 Pulse Ox (%): 99 - Studies Medications List Reviewed: Yes Assessment And Plan - Plan 74-year-old patient admitted with dystonic reactions, neurology was consulted, they felt it seizure, started on Keppra, he is being treated for UTI as well, clinically no significant improvement in the last few days, if he continues to be like this, family is considering hospice. 1. Seizure: patient with a history of large CVA with encephalomalacia; this could be progressive neurologic deterioration. Placed on Cogentin for ? dystonic reaction. Neurology consulted, they feel it's seizure, DC'd cogentin. Imaging studies do not show any acute infarct. Patient is already bedbound and really no significant change in his long-term neurologic status. -MRI scan neg d/w brother shyla at bedside on 10/30, overall poor prognosis, changed to DNR. No feeding tube at this time as per brother, iv fluids for now, discussed about hospice, brother will think about it and get back to us 2. History of CVA with encephalomalacia; continue with antiplatelet therapy and statin therapy 3. History of atrial fibrillation; continue with medication for rate control and anticoagulation, was on metoprolol and eliquis, changed to IV lopressor and lovenox for now -briefly required IV Cardizem drip last night. 4. UTI- cultures ESBL e.coli, cont meropenam 5. Pneumonia: abx as per ID 6. Chronic anemia: Monitor closely. 7. Ascending aortic aneurysm, 4 cm, follow-up with PCP. 8. Bilateral gynecomastia on CT scan: Follow-up with PCP, consider mammogram. 9. Enlarged prostate on CT scan: Follow-up with PCP. 10. Chronic left hip fluid collection: Follow-up with PCP. 11. Hypokalemia, hypophosphatemia: Replacing, monitor. Plan discussed the nursing staff and case management team. d/w brother at bed side on 10/30, if no improvement over the weekend, he is considering hospice.
[2024-11-01 20:44] LABS: Anion Gap 7.5 mEq/L (5.0-15.0); Potassium 3.5 mEq/L (3.5-5.1)
[2024-11-01] MEDS: KCL 20 MEQ/100 mL IVPB 20 MEQ/100 ML BAG IV ONE (23:04)
[2024-11-02 05:57] LABS: Absolute Eosinophils 0.2 K/uL (0-0.5); Absolute Lymphocytes (CBC) 1.2 K/uL (0.7-4.9); Absolute Monocytes 0.3 K/uL (0.1-1.3); Absolute Neutrophil 5.5 K/uL (1.8-8.0); Basophils % 0.3 % (0-1.3); Eosinophils % 3.2 % (0-4.4); Hematocrit 33.3 % (39.6-49.0); Hemoglobin 11.1 g/dL (13.6-17.9); MCH 30.1 pg (27.0-35.0); MCHC 33.3 g/dL (32.0-36.0); MCV 90.3 fL (80-100); MPV 8.2 fL (7.6-11.3); Monocytes % 4.5 % (3.3-12.3); Platelets 227 thou/uL (152-406); RBC Red Blood Cell Count 3.69 M/uL (4.33-5.43); Red Cell Distribution Width 13.7 % (12.1-15.2)
[2024-11-02 06:02] LABS: Anion Gap 7.5 mEq/L (5.0-15.0); Magnesium 1.8 mg/dL (1.6-2.4); Phosphorus 2.1 mg/dL (2.5-4.9); Potassium 3.5 mEq/L (3.5-5.1)
[2024-11-02] MEDS: POTASSIUM PHOS IN 0.9 % NACL 15 MMOL/250 ML BAG IV ONE (06:23)
[2024-11-02] MEDS: MAGNESIUM SULFATE 1 gm IVPB 1 GM/100 ML BAG IV ONE (06:23)
--- NOTE | 2024-11-02 11:22 | EKG ---
Test Date: 2024-10-31 Test Time: 17:12:44 Plodding Operator: YANCI MEASUREMENT RESULTS: Intervals: Rate: 142 NH: QRSD: 82 QT: 334 QTc: 513 [place]: P: NH: QRS: 44 T: 82 INTERPRETIVE STATEMENTS: Supraventricular tachycardia ST & T wave abnormality, consider anterolateral ischemia Abnormal ECG Compared to ECG 10/31/2024 17:12:01 No significant changes Electronically Signed On 11-02-24 11:18:34 CDT by Deep Doshi
--- NOTE | 2024-11-02 11:22 | EKG ---
Test Date: 2024-10-31 Test Time: 17:12:01 Psychology Lecturer: YANCI MEASUREMENT RESULTS: Intervals: Rate: 142 [place]: QRSD: 82 QT: 340 QTc: 523 [place]: P: PA: QRS: 48 T: 71 INTERPRETIVE STATEMENTS: Supraventricular tachycardia ST & T wave abnormality, consider anterolateral ischemia Abnormal ECG Compared to ECG 10/28/2024 03:21:11 ST (T wave) deviation now present Possible ischemia now present Sinus tachycardia no longer present Electronically Signed On 11-02-24 11:18:36 CDT by Deep Doshi
--- NOTE | 2024-11-02 13:57 | P.PN ---
Date of Service: 11/02/24 Subjective: The patient lying in bed, in ICU, not in any acute distress at this time. People seems more alert today. Does not verbalized but does growl sometimes. pending hospice Objective: Temp Pulse Resp BP Pulse Ox 97.8 F 67 17 117/86 99 10/30/24 16:00 10/30/24 19:00 10/30/24 19:00 10/30/24 19:00 10/30/24 19:00 Physical Exam General: Obese, not in distress. dystonia Neuro:encephalopathic Lungs: Basal crackles. On O2 NC 2L Heart: S1, S2. Regular. Abdomen: Soft, nontender. Bowel sounds present. Extremities: Trace edema. GI: rico:urine orange Brain MRI: 10/29/24 No acute intracranial abnormalities displayed CT brain w/o contrast: 10/28/24 No acute intracranial abnormalities [id number]/28/24 Sinus tachycardia .Otherwise normal ECG Chest xray 10/28/24 Bilateral opacities concerning for bilateral pneumonic process. Likely small pleural effusions Microbiology 10/24/24: blood cx no growth Abx: Meropenem Hematology: WBC 7.50, Hemoglobin 10.9, Platelet 217 Chemistry: BUN 7, Creatinine 0.74 Urine culture 10/24/24 E coli ESBL Assessment/Plan 1. Urosepsis monitor for sign of infection, WBC/fever continue Meropenum Leukocytosis, improved 2. Anemia of chronic disease. defer to primary 3. Pneumonitis versus congestive heart failure. Defer to primary Case discussed with DR. Penaloza during round in agreement
[2024-11-03 06:14] LABS: Absolute Eosinophils 0.3 K/uL (0-0.5); Absolute Lymphocytes (CBC) 1.7 K/uL (0.7-4.9); Absolute Monocytes 0.3 K/uL (0.1-1.3); Absolute Neutrophil 4.8 K/uL (1.8-8.0); Basophils % 0.4 % (0-1.3); Eosinophils % 4.2 % (0-4.4); Hematocrit 32.4 % (39.6-49.0); Hemoglobin 10.8 g/dL (13.6-17.9); Lymphocytes % 23.5 % (15.3-44.8); MCHC 33.5 g/dL (32.0-36.0); MCV 89.7 fL (80-100); MPV 8.3 fL (7.6-11.3); Monocytes % 4.6 % (3.3-12.3); Neutrophils % 67.3 % (41.7-73.7); Platelets 223 thou/uL (152-406); RBC Red Blood Cell Count 3.62 M/uL (4.33-5.43)
[2024-11-03 06:23] LABS: Anion Gap 7.5 mEq/L (5.0-15.0); Bicarbonate 29 mEq/L (21-32); Glomerular Filtration Rate 95 ml/min (=/>90); Glucose Level 94 mg/dL (74-106); Magnesium 1.7 mg/dL (1.6-2.4); Phosphorus 2.5 mg/dL (2.5-4.9); Potassium 3.5 mEq/L (3.5-5.1); Sodium Level 142 mEq/L (136-145)
[2024-11-03 06:30] LABS: BUN Blood Urea Nitrogen < 3 mg/dL (7-18)
[2024-11-03] MEDS: POTASSIUM PHOS IN 0.9 % NACL 15 MMOL/250 ML BAG IV ONE (06:47)
[2024-11-03] MEDS: MAGNESIUM SULFATE 1 gm IVPB 1 GM/100 ML BAG IV ONE (06:47)
--- NOTE | 2024-11-03 12:38 | PN ---
Subjective: Patient lying in bed. No new acute event. Chart reviewed. Possible discharge to [facility]. Somnolent. Objective: Vital Signs: Reviewed. Lungs: Basal crackles. Heart: S1, S2. Regular. Abdomen: Soft, nontender. Bowel sounds present. Extremities: Trace edema. Laboratory Data: Reviewed. Assessment And Plan: Urosepsis secondary to Escherichia coli, extended-spectrum beta-lactamase. Pat ient has finished treatment yesterday. Anemia of chronic disease. Tremors. History of seizure disorder. We will follow the patient closely. No other recommendations at this t janina. NF/MODL Voice ID: [id number] Report ID: [id number]
[2024-11-04 04:23] VITALS: BMI 38.7
[2024-11-04 06:01] LABS: Absolute Basophils 0.1 K/uL (0-0.5); Absolute Eosinophils 0.3 K/uL (0-0.5); Absolute Lymphocytes (CBC) 1.4 K/uL (0.7-4.9); Absolute Monocytes 0.4 K/uL (0.1-1.3); Absolute Neutrophil 4.9 K/uL (1.8-8.0); Basophils % 0.9 % (0-1.3); Eosinophils % 3.6 % (0-4.4); Hematocrit 32.4 % (39.6-49.0); Hemoglobin 10.9 g/dL (13.6-17.9); Lymphocytes % 20.2 % (15.3-44.8); MCH 30.2 pg (27.0-35.0); MCHC 33.5 g/dL (32.0-36.0); MCV 90.4 fL (80-100); MPV 7.9 fL (7.6-11.3); Monocytes % 5.9 % (3.3-12.3); Neutrophils % 69.4 % (41.7-73.7); Nucleated Red Blood Cells % 0.1 % (0-0); Platelets 245 thou/uL (152-406); RBC Red Blood Cell Count 3.59 M/uL (4.33-5.43); Red Cell Distribution Width 14.4 % (12.1-15.2)
[2024-11-04 06:15] LABS: Anion Gap 7.4 mEq/L (5.0-15.0); Bicarbonate 29 mEq/L (21-32); Glomerular Filtration Rate 97 ml/min (=/>90); Glucose Level 96 mg/dL (74-106); Magnesium 1.8 mg/dL (1.6-2.4); Phosphorus 2.6 mg/dL (2.5-4.9); Potassium 3.4 mEq/L (3.5-5.1); Sodium Level 141 mEq/L (136-145)
[2024-11-04 06:22] LABS: BUN Blood Urea Nitrogen < 3 mg/dL (7-18)
[2024-11-04] MEDS: KCL 20 MEQ/100 mL IVPB 20 MEQ/100 ML BAG IV SCH (06:33)
[2024-11-04] MEDS: MAGNESIUM SULFATE 1 gm IVPB 1 GM/100 ML BAG IV ONE (06:34)
[2024-11-04 09:29] VITALS: O2SAT 94
--- NOTE | 2024-11-04 10:44 | P.PN ---
Date of Service: 11/04/24 Subjective: The patient lying in bed, in ICU, not in any acute distress at this time. Pt is nonverbal. No fever/chill. pending hospice Objective: Temp Pulse Resp BP Pulse Ox 97.6 F 65 23 H 161/71 H 97 11/04/24 04:00 11/04/24 08:18 11/04/24 06:00 11/04/24 08:18 11/04/24 06:00 Physical Exam General: Obese, not in distress. dystonia Neuro:encephalopathic Lungs: Basal crackles. On O2 NC 2L Heart: S1, S2. Regular. Abdomen: Soft, nontender. Bowel sounds present. Extremities: Trace edema. GI: rico Brain MRI: 10/29/24 No acute intracranial abnormalities displayed CT brain w/o contrast: 10/28/24 No acute intracranial abnormalities EK10/28/24 Sinus tachycardia .Otherwise normal ECG Chest xray 10/28/24 Bilateral opacities concerning for bilateral pneumonic process. Likely small pleural effusions Microbiology 10/24/24: blood cx no growth Abx: dc Meropenem 11/02/24 Hematology: WBC 7, Hemoglobin 10.9, Platelet 245 Chemistry: BUN <3, Creatinine 0.69 Urine culture 10/24/24 E coli ESBL Assessment/Plan 1. Urosepsis secondary to E coli monitor for sign of infection, WBC/fever off Meropenum on 11/02/24 Leukocytosis, improved 2. Anemia of chronic disease. defer to primary Case discussed with DR. Penaloza during round in agreement
[2024-11-04 14:49] VITALS: BP 146/57; TEMP 97.2
--- NOTE | 2024-11-06 15:03 | EEG ---
CHART: [id number] TEST ID#: [id number] DATE OF STUDY: 11/02/2024 THE EEG WAS RECORDED [place] IN THE ICU ON A 17 CHANNEL MACHINE. ELECTRODES WERE APPLIED IN THE USUAL MANNER USING THE INTERNATIONAL 10-20 SYSTEM. THE WAKING BACKGROUND RHYTHM IN THIS RECORD CONSISTS OF POORLY DEVELOPED AND POORLY ORGANIZED WAVES OF 7 HZ., MAXIMAL IN THE POSTERIOR HEAD REGIONS WHICH ATTENUATE NORMALLY WITH EYE OPENING. MODERATE VOLTAGE 1.5-3 HZ ACTVITY IS EXPRESSED IN THE FRONTAL REGIONS. EPISODIC MYOCLONIC EMG ARTIFACT IS NOTED. THERE ARE NO FOCAL OR LATERALIZING FEATURES. NO EPILEPTIFORM ACTIVITY APPEARS. SLEEP DID NOT OCCUR. HYPERVENTILATION WAS NOT PERFORMED. PHOTIC STIMULATION PRODUCED NO DRIVING BILATERALLY. IMPRESSION: THIS IS A MODERATELY ABNORMAL AWAKE ROUTINE EEG DUE TO A DIFFSELY SLOW BACKGROUND. THIS IS A NONSPEICIFIC FINDING INDICATING THE PRESENCE OF A DIFFUSE DISTURBANCE IN CEREBRAL FUNCTION.
--- NOTE | 2024-11-12 12:37 | P.PN ---
Date of Service: 11/02/24 Subjective patient is clinically doing well. Patient with no significant changes. Still not eating or interacting well. He was moved to ICU because they thought he without a seizure although this is just dystonia. Unfortunately this was misdiagnosed. EEG was done and patient was having active dystonia during the EEG in the room no epileptiform discharges during the EEG. Patient is on Keppra and will keep him on Keppra as he does have risk factors for having seizures but currently the dystonia that patient is having is not seizure activity. Physical Examination - Vital Signs Reviewed - Physical Exam General: Alert, In no apparent distress, Confused, Other (Aphasic) Respiratory: Clear to auscultation bilaterally, Normal air movement Cardiovascular: Regular rate/rhythm, Normal S1 S2, No murmurs Gastrointestinal: Normal bowel sounds, Soft and benign, Non-distended, No tenderness, Ascites Musculoskeletal: No clubbing, No swelling, No tenderness Neurological: Abnormal gait, Abnormal speech, Abnormal strength, Abnormal tone - Studies Medications List Reviewed: Yes Assessment & Plan - Problems (Diagnosis) (1) Dystonia Current Visit: Yes Status: Acute (2) Aphasia Current Visit: Yes Status: Acute (3) History of CVA with residual deficit Current Visit: No Status: Chronic (4) Altered mental status Onset Date: 12/04/17 Current Visit: No Status: Acute (5) Atrial fibrillation Current Visit: No Status: Acute (6) Diabetes Current Visit: No Status: Chronic (7) History of hypertension Current Visit: No Status: Chronic - Plan continue with same plan of care as 1 on left Service: 1. Patient with aphasia and dystonic reaction; patient with a history of large CVA with encephalomalacia; this could be progressive neurologic deterioration. Placed on Cogentin for his dystonic reaction. Neurology consulted. Imaging studies do not show any acute heart. Spoke to detention and he has had change in his speech and his dystonia over the last month. Speech therapy saw the patient and pured diet recommended. Continue with range of motion exer cises. Patient is already bedbound and really no significant change in his long-term neurologic status. However we will try to get him seen by neurology for further treatment of his dystonia and aphasia workup. EEG was unremarkable for epileptiform discharge. Patient is high risk of aspirating as he is not able really protect his swallowing. Possibly hospice care going forward. 2. History of CVA with encephalomalacia; continue with antiplatelet therapy and statin therapy 3. History of atrial fibrillation; continue with medication for rate control and anticoagulation 4. UTI- cultures pending 5. GI DVT prophylaxis Discharge Plan: Halfway Plan to discharge in: 48 Hours - Advance Directives Does patient have a Living Will: No Does patient have a Durable POA for Healthcare: No - Code Status/Comfort Care Code Status: Full Code Critical Care: No Time Spent Managing PTS Care (In Minutes): 35
--- NOTE | 2024-11-12 12:41 | P.PN ---
Date of Service: 11/03/24 Subjective Patient continues to remain stable. Family has agreed hospice care. Arrange for discharge planning in a.m.. Physical Examination - Vital Signs Reviewed - Physical Exam General: Alert, In no apparent distress, Confused, Other (Aphasic) Respiratory: Clear to auscultation bilaterally, Normal air movement Cardiovascular: Regular rate/rhythm, Normal S1 S2, No murmurs Gastrointestinal: Normal bowel sounds, Soft and benign, Non-distended, No tenderness, Ascites Musculoskeletal: No clubbing, No swelling, No tenderness Neurological: Abnormal gait, Abnormal speech, Abnormal strength, Abnormal tone - Studies Medications List Reviewed: Yes Assessment & Plan - Problems (Diagnosis) (1) Dystonia Current Visit: Yes Status: Acute (2) Aphasia Current Visit: Yes Status: Acute (3) History of CVA with residual deficit Current Visit: No Status: Chronic (4) Altered mental status Onset Date: 12/04/17 Current Visit: No Status: Acute (5) Atrial fibrillation Current Visit: No Status: Acute (6) Diabetes Current Visit: No Status: Chronic (7) History of hypertension Current Visit: No Status: Chronic - Plan Continue with plan of care as mentioned below: 1. Patient with aphasia and dystonic reaction; patient with a history of large CVA with encephalomalacia; this could be progressive neurologic deterioration. Placed on Cogentin for his dystonic reaction. Neurology consulted. Imaging studies do not show any acute heart. Spoke to care home and he has had change in his speech and his dystonia over the last month. Speech therapy saw the patient and pured diet recommended. Continue with range of motion exercises. Patient is already bedbound and really no significant change in his long-term neurologic status. However we will try to get him seen by neurology for further treatment of his dystonia and aphasia workup. EEG was unremarkable for epileptiform discharge. Patient is high risk of aspirating as he is not able really protect his swallowing. Possibly hospice care going forward. 2. History of CVA with encephalomalacia; continue with antiplatelet therapy and statin therapy 3. History of atrial fibrillation; continue with medication for rate control and anticoagulation 4. UTI- cultures pending 5. GI DVT prophylaxis Discharge Plan: [facility] Plan to discharge in: 48 Hours - Advance Directives Does patient have a Living Will: No Does patient have a Durable POA for Healthcare: No - Code Status/Comfort Care Code Status: Full Code Critical Care: No Time Spent Managing PTS Care (In Minutes): 35
--- NOTE | 2024-11-12 12:42 | P.DS ---
Discharge Date: 11/04/24 Disposition: HOSPICE-MEDICAL FACILITY Discharge Condition: GOOD Reason for Admission: Fever altered mental status - Problems (1) Dystonia Status: Acute (2) Aphasia Status: Acute (3) History of CVA with residual deficit Status: Chronic (4) Altered mental status Onset Date: 12/04/17 Status: Acute (5) Atrial fibrillation Status: Acute (6) Diabetes Status: Chronic (7) History of hypertension Status: Chronic Brief History of Present Illness: 74 yrs old Male with past medical history of atrial fibrillation on chronic anticoagulation, chronic diastolic congestive heart failure, previous CVA with residual left hemiparesis, insulin-dependent diabetes, GERD, hyperlipidemia, hypertension, schizoaffective disorder/BPD, CKD presents emergency department with complaints of generalized body pain and fatigue and fever and altered mental status. Patient is a poor historian hence most of the history is obtained from the chart review and also talking to the ER physician. Symptoms started 3 days ago and has been progressively getting worse and was brought to ER. Patient denies any chest pain or shortness of breath. No sick contacts. Patient was assessed in the ER and is admitted for further management of acute metabolic encephalopathy, UTI, bibasilar pneumonia, constipation Hospital Course: Family decided to proceed with hospice care. Patient was aspirating and was going to have persistent pneumonia. So they decided to proceed with hospice. Vital Signs/Physical Exam: Temp Pulse Resp BP Pulse Ox 97.2 F 66 18 146/57 H 96 11/04/24 11:53 11/04/24 11:53 11/04/24 11:53 11/04/24 11:53 11/04/24 11:53 General: Alert, In no apparent distress, Oriented x3 Laboratory Data at Discharge: WBC 7.00 thou/uL (4.3-10.9) 11/04/24 05:00 Hgb 10.9 g/dL (13.6-17.9) L 11/04/24 05:00 Hct 32.4 % (39.6-49.0) L 11/04/24 05:00 Plt Count 245 thou/uL (152-406) 11/04/24 05:00 PT 14.6 SECONDS (10-13.0) H 10/24/24 21:48 INR 1.30 10/24/24 21:48 APTT 29.7 SECONDS (27.2-37.4) 10/24/24 21:48 Sodium 141 mEq/L (136-145) 11/04/24 05:00 Potassium 3.4 mEq/L (3.5-5.1) L 11/04/24 05:00 BUN < 3 mg/dL (7-18) L 11/04/24 05:00 Creatinine 0.69 mg/dL (0.70-1.30) L 11/04/24 05:00 Glucose 96 mg/dL (74-106) 11/04/24 05:00 Phosphorus 2.6 mg/dL (2.5-4.9) 11/04/24 05:00 Magnesium 1.8 mg/dL (1.6-2.4) 11/04/24 05:00 Total Bilirubin 0.9 mg/dL (0.2-1.0) 10/26/24 06:20 AST 15 U/L (15-37) 10/26/24 06:20 ALT 19 U/L (16-61) 10/26/24 06:20 Alkaline Phosphatase 46 U/L (45-117) 10/26/24 06:20 Home Medications: Acetaminophen [Tylenol] 650 mg PO Q6HP PRN 05/29/23 Apixaban [Eliquis *] 5 mg PO BID 05/29/23 Atorvastatin Calcium [Lipitor] 40 mg PO BEDTIME 05/29/23 Baclofen 5 mg PO TID 05/29/23 Cholecalciferol (Vitamin D3) [Vitamin D3] 2,000 unit PO DAILY 05/29/23 Divalproex Sodium 1,000 mg PO BID 05/29/23 Docusate [Colace Cap*] 100 mg PO DAILY 05/29/23 Gabapentin 200 mg PO TID 05/29/23 Insulin Glargine,Hum.rec.anlog [Lantus] 11 unit SQ BEDTIME 05/29/23 Lidocaine [Salonpas] 1 patch TOP DAILY 05/29/23 Melatonin 10 mg PO BEDTIME 05/29/23 Metformin HCl [Glucophage*] 850 mg PO BID 05/29/23 Metoprolol Tartrate [Lopressor*] 25 mg PO BID 05/29/23 Multivitamin [Multivitamins] 1 tab PO DAILY 05/29/23 Trazodone HCl 400 mg PO BEDTIME 05/29/23 Furosemide [Lasix*] 40 mg PO BID 09/21/24 Linagliptin [Tradjenta] 5 mg PO DAILY 09/21/24 Lisinopril [Zestril] 2.5 mg PO DAILY 09/21/24 Mag Hydroxide 8% [Milk Of Magnesia*] 60 ml PO DAILYPRN PRN 09/21/24 Albuterol Neb [Proventil 0.083% Neb Soln] 2.5 mg NEB [id number] PRN amp 11/04/24 Scopolamine Hydrobromide [Transderm-Scop*] 1 pat TD Q3D@0900 pat 11/04/24 Physician Discharge Instructions: -DC IV and DC to residential with hospice -Follow-up with PCP in 1 to 2 weeks -Please call Dr. Ramirez at [phone] if any questions regarding hospital stay -Please call nursing station at [phone] if any nursing or medication questions -Return to the emergency room if symptoms worsen Diet: AHA Activity: Fall precautions Followup: OOT,OOT [Primary Care Provider] - Time spent managing pt's care (in minutes): 35
== END 2024-11-04 12:14 | disposition hospice, inpatient (51) | DRG 871 ==
LOC: ER 20:17 → ERHOLD 10-25 04:32 → 4TH 10-25 05:44 → 3RD-ICU 10-28 13:29
PROVIDERS: ADMIT Family Medicine; ATTEND Hospitalist
PROC: 02H633Z Insertion of Infusion Device into Right Atrium, Percutaneous Approach (ICD-10-PCS; principal; 2024-10-24)
PROC: 4A033R1 Measurement of Arterial Saturation, Peripheral, Percutaneous Approach (ICD-10-PCS; 2024-10-28)
DX: A41.9 Sepsis, unspecified organism (principal); G93.41 Metabolic encephalopathy; J18.9 Pneumonia, unspecified organism; I69.354 Hemiplegia and hemiparesis following cerebral infarction affecting left non-dominant side; F05 Delirium due to known physiological condition; N10 Acute pyelonephritis; I50.32 Chronic diastolic (congestive) heart failure; I13.0 Hypertensive heart and chronic kidney disease with heart failure and stage 1 through stage 4 chronic kidney disease, or unspecified chronic kidney disease; R47.01 Aphasia; Z16.12 Extended spectrum beta lactamase (ESBL) resistance; R65.20 Severe sepsis without septic shock; N18.2 Chronic kidney disease, stage 2 (mild); E11.22 Type 2 diabetes mellitus with diabetic chronic kidney disease; D63.1 Anemia in chronic kidney disease; E78.5 Hyperlipidemia, unspecified; K56.41 Fecal impaction; E87.6 Hypokalemia; I48.91 Unspecified atrial fibrillation; I71.40 Abdominal aortic aneurysm, without rupture, unspecified; I69.398 Other sequelae of cerebral infarction; G93.89 Other specified disorders of brain; E83.39 Other disorders of phosphorus metabolism; F25.9 Schizoaffective disorder, unspecified; N40.0 Benign prostatic hyperplasia without lower urinary tract symptoms; K21.9 Gastro-esophageal reflux disease without esophagitis; B96.20 Unspecified Escherichia coli [E. coli] as the cause of diseases classified elsewhere; Z66 Do not resuscitate; Z51.5 Encounter for palliative care; Z79.4 Long term (current) use of insulin; Z74.01 Bed confinement status; Z11.52 Encounter for screening for COVID-19; Z79.01 Long term (current) use of anticoagulants; Z79.84 Long term (current) use of oral hypoglycemic drugs; Z79.899 Other long term (current) drug therapy; Z87.891 Personal history of nicotine dependence
CPT/HCPCS: 36415; 36556; 36600; 51702; 70450; 70551; 71045; 71260; 74177; 80048; 80053; 80177; 81001; 82805; 82947; 83605; 83735; 83880; 84100; 84132; 85025; 85610; 85730; 87040; 87077; 87086; 87088; 87186; 87428; 92526; 92610; 93005; 94760; 95816; 96365; 96368; 96372; 96375; 99285; J0360; J0692; J0696; J1650; J1940; J1953; J2185; J2405; J2543; J2919; J3370; J3475; J3480; J3486; J7030; J7040; J7042; J7050; Q9967